=== PATIENT | female | born 1995 | race Hispanic/Latino ===

== ENCOUNTER 2020-01-09 14:42 | Emergency (ER) | payer OTHER, SELFPAY ==
[2020-01-09 15:59] LABS: Absolute Lymphocytes (CBC) 1.8 K/uL (0.7-4.9); Basophils % 0.6 % (0-1.3); Hematocrit 35.7 % (36.0-45.0); Lymphocytes % 15.4 % (15.3-44.8); MPV 7.7 fL (7.6-11.3); RBC Red Blood Cell Count 4.39 M/uL (3.86-4.86)
[2020-01-09 16:09] LABS: BUN Blood Urea Nitrogen 9 mg/dL (7-18); Bicarbonate 24 mmol/L (21-32); Glucose Level 95 mg/dL (74-106); Sodium Level 141 mmol/L (136-145)
[2020-01-09 16:26] LABS: Urine Blood 1+ (NEG); Urine Glucose NEGATIVE (NEG); Urine Protein NEGATIVE (NEG)
--- NOTE | 2020-01-09 16:31 | RAD REPORT ---
EXAM DESCRIPTION: CT - Head Brain Wo Cont - 01/09/2020 3:55 pm CLINICAL HISTORY: Headache COMPARISON: None. TECHNIQUE: Computed axial tomography of the head was obtained. IV contrast was not requested. All CT scans are performed using dose optimization technique as appropriate and may include automated exposure control or mA/KV adjustment according to patient size. FINDINGS: An intracranial bleed is not seen . The ventricles are normal in caliber. No extra-axial fluid collection is noted. Fluid within the sinuses/ mastoids is not seen. IMPRESSION: No acute intracranial abnormality is seen. If patient's symptoms persist MRI of the bra in would be recommended.
[2020-01-09] MEDS ORDERED: MECLIZINE HCL 12.5 MG TAB ONE (16:55)
--- NOTE | 2020-01-09 17:43 | RAD REPORT ---
EXAM DESCRIPTION: US - Transvaginal OB - 01/09/2020 5:17 pm CLINICAL HISTORY: COMPARISON: None FINDINGS: The uterus 10 x 5 x 5 centimeters. A 6 x 7 x 3 millimeter oval fluid collection is pres ent within the endometrium probably a gestational sac. A pole is not seen. Yolk sac is not visu alized 4.6 centimeter left ovarian cyst. Blood flow is present within the left ovary. The right ovary was no t seen secondary to overlying bowel gas. The right and left adnexa are unremarkable Small amount of free fluid IMPRESSION: Small fluid collection within the endometrium. These findings could represent an early intrauterine in which the pole is not yet see n. An incomplete and even an ectopic associated with a pseudo gestational sac can also result in this appearance. This all should be correlated clinically and with serial beta HCG levels. Followup endovaginal sonogr am in 1 week recommended 4.6 centimeter left ovarian cyst
--- NOTE | 2020-01-09 17:58 | ER ---
Nurse's Notes [facility] Name: Brit Singh Age: 24 yrs Sex: Female : 1995 Arrival Date: 01/09/2020 Time: 14:44 Bed 16 Private MD: Diagnosis: Dizziness and giddiness; related conditions, unspecified, first trimester Presentation: 01/08 15:04 Chief complaint: Patient states: "I have been feeling dizzy since this morning.". jd3 Coronavirus screen: At this time, the client does not indicate any symptoms associated with coronavirus-19. Ebola Screen: Patient negative for fever greater than or equal to 101.5 degrees Fahrenheit, and additional compatible Ebola Virus Disease symptoms. Initial Sepsis Screen: Does the patient meet any 2 criteria? No. Patient's initial sepsis screen is negative. Does the patient have a suspected source of infection? No. Patient's initial sepsis screen is negative. Risk Assessment: Do you want to hurt yourself or someone else? Patient reports no desire to harm self or others. Onset of symptoms was January 09, 2020. 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 - Social history:: Smoking status: Patient reports the use of cigarette tobacco products, denies chronic smoking, but will smoke occasionally. Screenin:25 Abuse screen: Denies threats or abuse. Denies injuries from another. Nutritional ca1 screening: No deficits noted. Tuberculosis screening: No symptoms or risk factors identified. Fall Risk IV access (20 points). Assessment: 15:25 General: Appears in no apparent distress. comfortable, Behavior is calm, cooperative, ca1 appropriate for age. Pain: Denies pain. Neuro: Level of Consciousness is awake, alert, obeys commands, Oriented to person, place, time, situation, Appropriate for age. Neuro: Reports dizziness, since this morning. Cardiovascular: Heart tones S1 S2 present Capillary refill < 3 seconds Patient's skin is warm and dry. Rhythm is sinus rhythm. Respiratory: Airway is patent Respiratory effort is even, unlabored, Respiratory pattern is regular, symmetrical, Breath sounds are clear bilaterally. GI: Abdomen is round non-distended, Bowel sounds present X 4 quads. Abd is soft and non tender X 4 quads. Patient currently denies nausea. : No signs and/or symptoms were reported regarding the genitourinary system. EENT: No signs and/or symptoms were reported regarding the EENT system. Derm: Skin is intact, is healthy with good turgor, Skin is pink, warm \\T\\ dry. Musculoskeletal: Circulation, motion, and sensation intact. Capillary refill < 3 seconds. 16:30 Reassessment: Patient appears in no apparent distress at this time. Patient and/or ca1 family updated on plan of care and expected duration. Pain level reassessed. Patient is alert, oriented x 3, equal unlabored respirations, skin warm/dry/pink. 17:30 Reassessment: Patient appears in no apparent distress at this time. Patient and/or ca1 family updated on plan of care and expected duration. Pain level reassessed. Patient is alert, oriented x 3, equal unlabored respirations, skin warm/dry/pink. 18:20 Reassessment: Patient appears in no apparent distress at this time. Patient is alert, ca1 oriented x 3, equal unlabored respirations, skin warm/dry/pink. Vital Signs: 15:06 BP 132 / 67; Pulse 103; Resp 16 S; Temp 99.0(TE); Pulse Ox 99% on R/A; Weight 106.14 kg jd3 (R); Height 5 ft. 6 in. (167.64 cm) (R); Pain 0/10; 16:00 BP 150 / 71; Pulse 102; Resp 18 S; Pulse Ox 100% on R/A; ca1 17:00 BP 121 / 64; Pulse 92; Resp 16 S; Pulse Ox 100% on R/A; ca1 17:47 BP 126 / 76; Pulse 88; Resp 17 S; Pulse Ox 100% on R/A; ca1 17:50 BP 138 / 90; Pulse 88; Resp 17 S; Pulse Ox 100% on R/A; ca1 17:53 BP 134 / 74; Pulse 89; Resp 17 S; Pulse Ox 100% on R/A; ca1 15:06 Body Mass Index 37.77 (106.14 kg, 167.64 cm) jd3 ED Course: 14:44 Patient arrived in ED. as 15:04 Triage completed. jd3 15:08 Arm band placed on. jd3 15:19 Jaswinder Hernandez PA is PHCP. cp 15:19 Les Rosales MD is Attending Physician. cp 15:25 Patient has correct armband on for positive identification. Placed in gown. Bed in low ca1 position. Call light in reach. Side rails up X 1. Pulse ox on. NIBP on. Warm blanket given. 15:35 Mireille Davison, RN is Primary Nurse. ca1 15:40 Initial lab(s) drawn, by me, sent to lab. EKG done, by ED staff. Inserted saline lock: ca1 20 gauge in left antecubital area, using aseptic technique. Blood collected. 15:40 No provider procedures requiring assistance completed. Urine collected: clean catch ca1 specimen, cloudy. 15:55 CT Head Brain wo Cont In Process Unspecified. EDMS 17:16 US Transvaginal Ob In Process Unspecified. EDMS 18:20 IV discontinued, intact, bleeding controlled, No redness/swelling at site. Pressure ca1 dressing applied. Administered Medications: 16:43 Drug: Meclizine 25 mg Route: PO; ca1 17:41 Follow up: Response: No adverse reaction; Marked relief of symptoms ca1 Outcome: 17:57 Discharge ordered by MD. cp 18:20 Discharged to home ca1 18:20 Condition: stable 18:20 Discharge instructions given to patient, Instructed on discharge instructions, follow up and referral plans. medication usage, Demonstrated understanding of instructions, follow-up care, medications, Prescriptions given X 2. 18:21 Patient left the ED. ca1 Signatures: Dispatcher [employer] EDMS Angelita Martinez as Jaswinder Hernandez PA PA cp Davies, Jonathon, RN RN jd3 Mireille Davison RN RN ca1 Corrections: (The following items were deleted from the chart) 15:08 15:06 Pulse 103bpm; Resp 16bpm; Spontaneous; Pulse Ox 99% RA; Temp 99.0F Temporal; jd3 106.14 kg Reported; Height 5 ft. 6 in. Reported; BMI: 37.7; Pain 0/10; jd3
--- NOTE | 2020-01-09 17:58 | EDPHYS ---
Physician Documentation [facility] Name: Brit Singh Age: 24 yrs Sex: Female : 1995 Arrival Date: 01/09/2020 Time: 14:44 Bed 16 Private MD: ED Physician Lse Rosales HPI: 01/08 15:35 This 24 yrs old Female presents to ER via Ambulatory with complaints of cp Dizziness. 15:35 The patient presents with dizziness, feeling faint, lightheadedness. Onset: The cp symptoms/episode began/occurred this morning, after waking up about 1000. 15:35 Associated signs and symptoms: Pertinent positives: headache, Pertinent negatives: cp abdominal pain, chest pain, focal weakness, syncope, vomiting. Severity of symptoms: in the emergency department the symptoms have improved mildly. Patient's baseline: Neuro: alert and fully oriented, Motor: no deficits, Ambulation: walks without assistance, Speech: normal. 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 - Social history:: Smoking status: Patient reports the use of cigarette tobacco products, denies chronic smoking, but will smoke occasionally. ROS: 15:40 Constitutional: Negative for body aches, chills, fever, poor PO intake. cp 15:40 Eyes: Negative for injury, pain, redness, and discharge. cp 15:40 ENT: Negative for ear pain, sore throat, difficulty swallowing, difficulty handling secretions. 15:40 Cardiovascular: Negative for chest pain, palpitations. 15:40 Respiratory: Negative for cough, shortness of breath, wheezing. 15:40 Abdomen/GI: Negative for abdominal pain, nausea, vomiting, and diarrhea, black/tarry stool, rectal bleeding. 15:40 : Negative for urinary symptoms, vaginal bleeding, vaginal discharge. 15:40 Neuro: Positive for dizziness, headache, Negative for altered mental status, syncope, weakness. 15:40 All other systems are negative. Exam: 15:45 Constitutional: The patient appears in no acute distress, alert, awake, non-toxic, well cp developed, well nourished. 15:45 Head/Face: Normocephalic, atraumatic. cp 15:45 Eyes: Periorbital structures: appear normal, Conjunctiva: normal, no exudate, no injection, Sclera: no appreciated abnormality, Lids and lashes: appear normal, bilaterally. 15:45 ENT: External ear(s): are unremarkable, Ear canal(s): are normal, clear, TM's: dullness, bilaterally, Nose: is normal, Mouth: Lips: moist, Oral mucosa: moist, Posterior pharynx: Airway: no evidence of obstruction, patent. 15:45 Neck: ROM/movement: is normal, is supple, without pain, no range of motions limitations. 15:45 Chest/axilla: Inspection: normal, Palpation: is normal, no crepitus, no tenderness. 15:45 Cardiovascular: Rate: tachycardic, Rhythm: regular, Heart sounds: murmur, not appreciated, JVD: is not appreciated. 15:45 Respiratory: the patient does not display signs of respiratory distress, Respirations: normal, no use of accessory muscles, no retractions, labored breathing, is not present, Breath sounds: are clear throughout, no decreased breath sounds, no stridor, no wheezing. 15:45 Abdomen/GI: Inspection: abdomen appears normal, Palpation: abdomen is soft and non-tender, in all quadrants. 15:45 Neuro: Orientation: to person, place \T\ time. Mentation: is normal, Cerebellar function: is grossly normal, Motor: moves all fours, strength is normal, Sensation: is normal. 16:15 ECG was reviewed by the Attending Physician. cp Vital Signs: 15:06 BP 132 / 67; Pulse 103; Resp 16 S; Temp 99.0(TE); Pulse Ox 99% on R/A; Weight 106.14 kg jd3 (R); Height 5 ft. 6 in. (167.64 cm) (R); Pain 0/10; 16:00 BP 150 / 71; Pulse 102; Resp 18 S; Pulse Ox 100% on R/A; ca1 17:00 BP 121 / 64; Pulse 92; Resp 16 S; Pulse Ox 100% on R/A; ca1 17:47 BP 126 / 76; Pulse 88; Resp 17 S; Pulse Ox 100% on R/A; ca1 17:50 BP 138 / 90; Pulse 88; Resp 17 S; Pulse Ox 100% on R/A; ca1 17:53 BP 134 / 74; Pulse 89; Resp 17 S; Pulse Ox 100% on R/A; ca1 15:06 Body Mass Index 37.77 (106.14 kg, 167.64 cm) jd3 MDM: 15:26 Patient medically screened. 17:56 Data reviewed: vital signs, nurses notes, lab test result(s), EKG, radiologic studies, cp CT scan. 17:56 Counseling: I had a detailed discussion with the patient and/or guardian regarding: the cp historical points, exam findings, and any diagnostic results supporting the discharge/admit diagnosis, lab results, radiology results, the need for outpatient follow up, an OB/Gyne specialist, to return to the emergency department if symptoms worsen or persist or if there are any questions or concerns that arise at home. Response to treatment: the patient's symptoms have markedly improved after treatment, patient is well hydrated. and as a result, I will discharge patient. 01/08 15:33 Order name: CBC with Diff; Complete Time: 16:20 01/08 16:20 Interpretation: Normal except: WBC 11.7; HCT 35.7; PLT 460; CHAO% 79.4; NEUT A 9.3. 01/08 15:33 Order name: BMP; Complete Time: 16:20 01/08 16:20 Order name: Urine Dipstick--Ancillary (enter results); Complete Time: 17:15 ar 01/08 16:20 Order name: Urine --Ancillary (enter results); Complete Time: 17:15 ar 01/08 16:25 Order name: Beta hcg; Complete Time: 17:15 01/08 16:25 Order name: Rh Type 01/08 15:31 Order name: Orthostatics; Complete Time: 17:52 01/08 15:33 Order name: EKG; Complete Time: 15:34 01/08 15:33 Order name: EKG - Nurse/Tech; Complete Time: 16:17 01/08 15:33 Order name: Urine Dipstick-Ancillary (obtain specimen); Complete Time: 16:17 01/08 15:34 Order name: CT Head Brain wo Cont; Complete Time: 17:15 01/08 16:25 Order name: US Transvaginal Ob; Complete Time: 18:13 cp 01/08 17:42 Order name: ABO/RH typing; Complete Time: 18:13 EDAZ 01/08 15:33 Order name: Urine Dipstick-Ancillary (obtain specimen); Complete Time: 16:17 cp EC:15 Rate is 91 beats/min. Rhythm is regular. UT interval is normal. QRS interval is normal. cp QT interval is normal. T waves are Inverted in lead aVR. Interpreted by me. Reviewed by me. Administered Medications: 16:43 Drug: Meclizine 25 mg Route: PO; ca1 17:41 Follow up: Response: No adverse reaction; Marked relief of symptoms ca1 Disposition: 01/09 14:27 Co-signature as Attending Physician, Les Rosaels MD. rn Disposition: 01/09/20 17:57 Discharged to Home. Impression: Dizziness and giddiness, related conditions, unspecified, first trimester. - Condition is Stable. - Discharge Instructions: Dizziness, First Trimester of . - Prescriptions for Meclizine 25 mg Oral Tablet - take 1 tablet by ORAL route every 8 hours As needed; 30 tablet. Vitamin 27- 0.8 mg Oral Tablet - take 1 tablet by ORAL route once daily; 60 tablet. - Medication Reconciliation Form, Thank You Letter, Antibiotic Education, Prescription Opioid Use, Work release form form. - Follow up: Private Physician; When: 1 week; Reason: Recheck today's complaints. - Problem is new. - Symptoms have improved. Signatures: Dispatcher [employer] [facility] Les Rosales MD MD rn Page, Corey, PA PA cp Andry Cabrera RN RN jd3 Mireille Davison RN RN ca1 Corrections: (The following items were deleted from the chart) 01/08 18:21 17:57 01/09/2020 17:57 Discharged to Home. Impression: Dizziness and giddiness; ca1 related conditions, unspecified, first trimester. Condition is Stable. Forms are Medication Reconciliation Form, Thank You Letter, Antibiotic Education, Prescription Opioid Use. Follow up: Private Physician; When: 1 week; Reason: Recheck today's complaints. Problem is new. Symptoms have improved. cp
[2020-01-09 21:02] VITALS: TEMP 99
[2020-01-09 21:03] VITALS: O2SAT 100
[2020-01-09 21:12] VITALS: BP 134/74
--- NOTE | 2020-01-10 07:41 | EKG ---
Test Date: 2020-01-09 Test Time: 16:09:48 Manager [employer]olog[employer]: HUSSEIN MEASUREMENT RESULTS: Intervals: Rate: 91 OH: 114 QRSD: 84 QT: 352 QTc: 432 [place]: P: 17 OH: 114 QRS: 64 T: 35 INTERPRETIVE STATEMENTS: Normal sinus rhythm Normal ECG No previous ECG available for comparison Electronically Signed On 01-10-20 07:40:33 PARTS ROOM ASSOCIATE by Edward Mccord
== END 2020-01-09 18:21 | disposition home or self-care (01) ==
LOC: ER 14:42
DX: O26.891 Other specified pregnancy related conditions, first trimester (principal); Z3A.00 Weeks of gestation of pregnancy not specified
CPT/HCPCS: 36415; 70450; 76817; 80048; 81003; 81025; 84702; 85025; 86900; 86901; 93005; 99285

== ENCOUNTER 2020-04-23 19:00 | Emergency (ER) | payer OTHER, MEDICAID ==
--- OUTSIDE RECORDS SUMMARY | 2020-04-23 19:03 | XMS REPORT | Continuity of Care Document ---
:1995 Author Organization [facility] t Address [address] [place] [address] Care Team Providers Name Role Phone Mary Posey Main Attending Clinician Unavailable Jerardo CURIEL Attending Clinician Problems This patient has no known problems. Allergies, Adverse Reactions, Alerts This patient has no known allergies or adverse reactions. Medications This patient has no known medications. Procedures This patient has no known procedures. Encounters Start End Encounter Admission Attending Care Care Encounter Source Date/Time Date/Time Type Type Clinicians Facility Department ID 2020-04-07 2020-04-07 Electrical Apprentice Jett Posey [facility] [id number] 09:56:41 10:11:41 Visit Lab Main [place] [id number] [place] [id number] Profess[facility] [phone] [facility] [address] Building 2020-03-15 2020-03-15 Electrical Apprentice Jett Posey [facility] [id number] 13:44:30 13:59:30 Visit Lab Main [place] [id number] [place] [id number] Professio [phone] [place] [address] Building 2020-01-20 2020-01-20 Tele[address] Nahed Kurtz [facility] [id number] 00:00:00 00:00:00 [place] [id number] [place] [id number] [facility] [phone] [address] Results This patient has no known results.
[2020-04-23] MEDS ORDERED: ACETAMINOPHEN 500 MG TAB ONE ×2 (19:43→19:49)
[2020-04-23] MEDS ORDERED: NA CHLORIDE 0.9% 500 ML ONE (20:25)
[2020-04-23 20:45] LABS: Absolute Lymphocytes (CBC) 0.8 K/uL (0.7-4.9); Basophils % 0.2 % (0-1.3); Hematocrit 31.8 % (36.0-45.0); Lymphocytes % 7.5 % (15.3-44.8); MPV 6.7 fL (7.6-11.3)
[2020-04-23 20:45] LABS: SARS-COV-2 RT PCR POSITIVE (NEGATIVE)
[2020-04-23 20:50] LABS: Protime INR 1.06
[2020-04-23 21:04] LABS: ALT/SGPT 61 U/L (12-78); AST/SGOT 50 U/L (15-37); Albumin 2.7 g/dL (3.4-5.0); Alkaline Phosphatase 94 U/L (45-117); BUN Blood Urea Nitrogen 6 mg/dL (7-18); Bicarbonate 21 mmol/L (21-32); Bilirubin Direct 0.3 mg/dL (0-0.2); Bilirubin Total 0.6 mg/dL (0.2-1.0); Glucose Level 101 mg/dL (74-106); Lipase 73 U/L (73-393); Potassium 3.3 mmol/L (3.5-5.1); Protein, Total 7.2 g/dL (6.4-8.2); Sodium Level 135 mmol/L (136-145); Troponin (Emerg Dept Use Only) < 0.02 ng/mL (0.0-0.045)
--- NOTE | 2020-04-23 21:04 | RAD REPORT ---
EXAM DESCRIPTION: RAD - Chest Single View - 04/23/2020 8:58 pm CLINICAL HISTORY: fever;Cough Chest pain. COMPARISON: No comparisons FINDINGS: Portable technique limits examination quality. Mild to moderate bilateral pulmonary opacities are present which may represent pulmonary edema or pul monary infection. The heart is upper limit normal in size.
[2020-04-23 21:19] LABS: Anisocytosis 1+; Blood Morphology Comment NOTED (NOT SEEN); Hypochromasia 1+; Platelet Estimate ADEQ; White Blood Cell Scan OK (OK)
[2020-04-23 22:09] LABS: Urine Blood NEGATIVE (NEG); Urine Glucose NEGATIVE (NEG); Urine Protein TRACE (NEG); Urine Specific Gravity 1.015 (1.005-1.030); Urine pH 6.5 (5.0-7.0)
[2020-04-23 22:38] LABS: Urine Bacteria >50 /HPF (<20); Urine RBC <5 /HPF (NONE SEEN)
--- NOTE | 2020-04-23 22:49 | ER ---
Nurse's Notes [facility] Name: Brit Singh Age: 25 yrs Sex: Female : 1995 Arrival Date: 04/23/2020 Time: 19:04 Bed 18 Private MD: Diagnosis: Pneumonia due to other specified infectious organisms;Coronavirus infection, unspecified Presentation: 04/23 19:20 Chief complaint: Patient states: Reports cough, shortness of breath, nausea, lp1 generalized body pain x 3 days; patient reports she is currently 5 months . Coronavirus screen: Client denies travel out of the [place] in the last 14 days. congestion, cough unrelated to allergies, fatigue, muscle pain, nausea, Client presents with at least one sign or symptom that may indicate coronavirus-19. Standard/surgical mask placed on the client. Ebola Screen: No symptoms or risks identified at this time. Initial Sepsis Screen: Does the patient meet any 2 criteria? RR > 20 per min. HR > 90 bpm. Yes. Initial Sepsis Screen: Does the patient have a suspected source of infection? Yes:. Risk Assessment: Do you want to hurt yourself or someone else? Patient reports no desire to harm self or others. Onset of symptoms was April 23, 2020. 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 - Social history:: Smoking status: Patient denies any tobacco usage or history of. Screenin:23 Abuse screen: Denies threats or abuse. Denies injuries from another. Nutritional lp1 screening: No deficits noted. Tuberculosis screening: No symptoms or risk factors identified. 20:00 Fall Risk None identified. jb4 Assessment: 20:00 General: Appears in no apparent distress. comfortable, Behavior is calm, cooperative, jb4 appropriate for age. Pain: Complains of pain in throat Pain does not radiate. Pain currently is 4 out of 10 on a pain scale. Neuro: Level of Consciousness is awake, alert, obeys commands, Oriented to person, place, time, situation. Cardiovascular: Patient's skin is warm and dry. Respiratory: Airway is patent Respiratory effort is even, unlabored, Respiratory pattern is regular, symmetrical. GI: No signs and/or symptoms were reported involving the gastrointestinal system. : No signs and/or symptoms were reported regarding the genitourinary system. EENT: Throat is clear is pink with gag reflex present. Derm: No signs and/or symptoms reported regarding the dermatologic system. Musculoskeletal: No signs and/or symptoms reported regarding the musculoskeletal system. 21:00 Reassessment: Patient appears in no apparent distress at this time. Patient and/or jb4 family updated on plan of care and expected duration. Pain level reassessed. Patient is alert, oriented x 3, equal unlabored respirations, skin warm/dry/pink. 22:00 Reassessment: Patient appears in no apparent distress at this time. Patient and/or jb4 family updated on plan of care and expected duration. Pain level reassessed. Patient is alert, oriented x 3, equal unlabored respirations, skin warm/dry/pink. 22:39 Reassessment: PT ambulated around the Unit. pt able to do one lap, O2 maintained 95-97% jb4 on RA, heart rate maintained at 120. Pt reports an increase in shortness of breath. provider notified. Vital Signs: 19:20 BP 133 / 77; Pulse 143; Resp 20; Temp 102.9(O); Pulse Ox 98% on R/A; Weight 105.23 kg lp1 (M); 21:00 BP 122 / 63; Pulse 111; Resp 18; Temp 98.4(O); Pulse Ox 98% on R/A; jb4 22:27 BP 112 / 76; Pulse 100; Resp 22; Pulse Ox 99% on R/A; jb4 Vitals: 21:28 Heart Tones 175. jb4 ED Course: 19:04 Patient arrived in ED. mr 19:22 Triage completed. lp1 19:22 Arm band placed on. lp1 19:36 COVID swab sent to lab. Flu and/or RSV swab sent to lab. Strep swab sent to lab. lp1 19:49 Jaswinder Hernandez PA is PHCP. cp 19:49 Ugo Dickerson MD is Attending Physician. cp 19:54 Zelalem Tinsley, SANKET is Primary Nurse. jb4 20:00 Placed in gown. Bed in low position. Call light in reach. Side rails up X 1. Verbal jp3 reassurance given. playground monitor on. Pulse ox on. NIBP on. 20:20 First set of blood cultures drawn by me. jp3 20:30 Initial lab(s) drawn, by me, sent to lab. Inserted saline lock: 22 gauge in left jp3 antecubital area, using aseptic technique. Blood collected. 20:30 Second set of blood cultures drawn by me. Patient maintains SpO2 saturation greater jp3 than 95% on room air. 20:58 XRAY Chest (1 view) In Process Unspecified. EDMS 22:08 CT Chest For PE Angio In Process Unspecified. EDMS 23:16 No provider procedures requiring assistance completed. IV discontinued, intact, jb4 bleeding controlled, No redness/swelling at site. Pressure dressing applied. Administered Medications: 19:36 Drug: Tylenol 1000 mg Route: PO; lp1 21:00 Follow up: Response: No adverse reaction; Marked relief of symptoms; Temperature is jb4 decreased 20:30 Drug: NS 0.9% 500 ml Route: IV; Rate: 1 bolus; Site: left antecubital; jb4 21:00 Follow up: Response: No adverse reaction; IV Status: Completed infusion; IV Intake: jb4 500ml 23:00 Drug: Potassium Effervescent Tablet 50 mEq Route: PO; jb4 23:16 Follow up: Response: No adverse reaction jb4 23:00 Drug: Albuterol HFA Inhaler 2 puffs Route: Inhalation; jb4 23:16 Follow up: Response: No adverse reaction jb4 Intake: 21:00 IV: 500ml; Total: 500ml. jb4 Outcome: 22:49 Discharge ordered by . cp 23:16 Discharged to home ambulatory. jb4 23:16 Condition: stable 23:16 Discharge instructions given to patient, Instructed on discharge instructions, follow up and referral plans. medication usage, Demonstrated understanding of instructions, follow-up care, medications, Prescriptions given X 2. 23:17 Patient left the ED. jb4 Signatures: [facility]patcher [facility] Belkis Shi Laura, RN RN lp1 Jaswinder Hernandez PA PA cp Bryson, James, RN RN jb4 Frederick Erazo jp3 Corrections: (The following items were deleted from the chart) 21:06 21:00 BP 107 / 47; Pulse 111bpm; Resp 18bpm; Pulse Ox 98% RA; Temp 98.4F Oral; jb4 jb4
--- NOTE | 2020-04-23 22:50 | EDPHYS ---
Physician Documentation [facility] Name: Brit Singh Age: 25 yrs Sex: Female : 1995 Arrival Date: 04/23/2020 Time: 19:04 Bed 18 Private MD: ED Physician Ugo Dickerson HPI: 04/23 20:05 This 25 yrs old Female presents to ER via Wheelchair with complaints of Sore cp Throat, Cough, Congestion. 20:05 The patient presents with sore throat. Onset: The symptoms/episode began/occurred 3 cp day(s) ago. Severity of symptoms: in the emergency department the symptoms are unchanged, despite home interventions. Associated signs and symptoms: Pertinent positives: cough, fever, shortness of breath Pertinent negatives diarrhea, headache, vomiting. Patient reports she is currently 5 months and had close contact with relative who recently tested positive for COVID-19. 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 - Social history:: Smoking status: Patient denies any tobacco usage or history of. ROS: 20:10 Constitutional: Positive for fever, Negative for body aches, chills, poor PO intake. cp 20:10 Eyes: Negative for injury, pain, redness, and discharge. cp 20:10 ENT: Positive for sore throat, Negative for drainage from ear(s), ear pain, difficulty swallowing, difficulty handling secretions. 20:10 Cardiovascular: Negative for chest pain, edema, palpitations. 20:10 Respiratory: Positive for cough, shortness of breath, Negative for wheezing. 20:10 Abdomen/GI: Negative for abdominal pain, nausea, vomiting, and diarrhea. 20:10 : Negative for urinary symptoms, vaginal bleeding, vaginal discharge. 20:10 Neuro: Negative for altered mental status, headache, weakness. 20:10 All other systems are negative. Exam: 20:15 Constitutional: The patient appears in no acute distress, alert, awake, cp non-diaphoretic, non-toxic, well developed, well nourished, obese. 20:15 Head/Face: Normocephalic, atraumatic. cp 20:15 Eyes: Periorbital structures: appear normal, Conjunctiva: normal, no exudate, no injection, Sclera: no appreciated abnormality, Lids and lashes: appear normal, bilaterally. 20:15 ENT: External ear(s): are unremarkable, Ear canal(s): are normal, clear, TM's: dullness, bilaterally, Nose: is normal, Mouth: Lips: moist, Oral mucosa: moist, Posterior pharynx: Airway: no evidence of obstruction, patent, Tonsils: bilaterally enlarged, with erythema, Uvula: midline, exudate, is not appreciated. 20:15 Neck: ROM/movement: is normal, is supple, without pain, no range of motions limitations, no meningismus. 20:15 Chest/axilla: Inspection: normal, Palpation: is normal, no crepitus, no tenderness. 20:15 Cardiovascular: Rate: tachycardic, Rhythm: regular, Edema: is not appreciated, JVD: is not appreciated. 20:15 Respiratory: the patient does not display signs of respiratory distress, Respirations: labored breathing, that is mild, intercostal retractions, are absent, shallow respirations, are not present, Breath sounds: bronchial sounds, that are mild, are heard diffusely, stridor, is not appreciated, wheezing: is not appreciated. 20:15 Abdomen/GI: Inspection: gravid appearance, is noted, Bowel sounds: active, all quadrants, Palpation: abdomen is soft and non-tender, in all quadrants. 20:15 Back: CVA tenderness, is absent. 20:15 Skin: no rash present. 20:15 Neuro: Orientation: to person, place \T\ time. Mentation: is normal, Cerebellar function: is grossly normal, Motor: moves all fours, strength is normal, Sensation: is normal. 21:22 ECG was reviewed by the Attending Physician. cp Vital Signs: 19:20 BP 133 / 77; Pulse 143; Resp 20; Temp 102.9(O); Pulse Ox 98% on R/A; Weight 105.23 kg lp1 (M); 21:00 BP 122 / 63; Pulse 111; Resp 18; Temp 98.4(O); Pulse Ox 98% on R/A; jb4 22:27 BP 112 / 76; Pulse 100; Resp 22; Pulse Ox 99% on R/A; jb4 MDM: 20:02 Patient medically screened. cp 20:30 Differential diagnosis: group A strep tonsillitis, mononucleosis, pharyngitis, cp retropharyngeal abcess tonsillitis, uvulitis, COVID-19, sepsis, UTI, influenza, Respiratory Failure. 22:45 Data reviewed: vital signs, nurses notes, lab test result(s), EKG, radiologic studies, cp plain films. 22:45 Test interpretation: by ED physician or midlevel provider: plain radiologic studies. cp Counseling: I had a detailed discussion with the patient and/or guardian regarding: the historical points, exam findings, and any diagnostic results supporting the discharge/admit diagnosis, lab results, radiology results, the need for outpatient follow up, an OB/Gyne specialist, to return to the emergency department if symptoms worsen or persist or if there are any questions or concerns that arise at home. Response to treatment: the patient's symptoms have markedly improved after treatment. ED course: VSS. Symptoms improved with meds. Patient ambulated in ED and oxygen sats remain above 94% on RA. Patient appears non-toxic and no signs of respiratory distress. Will discharge to home for continued monitoring. 04/23 19:36 Order name: Strep; Complete Time: 20:59 lp1 04/23 20:04 Order name: Urine Culture cp 04/23 20:04 Order name: Basic Metabolic Panel; Complete Time: 21:07 cp 04/23 21:07 Interpretation: Normal except: NA 135; K 3.3; BUN 6; CRE 0.40. cp 04/23 20:04 Order name: Blood Culture Adult (2) cp 04/23 20:04 Order name: CBC with Diff; Complete Time: 21:37 cp 04/23 21:13 Interpretation: Normal except: HGB 11.0; HCT 31.8; MCV 77.7; MCH 26.8; RDW 16.0; MPV cp 6.7; CHAO% 89.3; LYM% 7.5; MN% 3.0; NEUT A 9.7. 04/23 20:04 Order name: Lactate; Complete Time: 21:12 cp 04/23 21:12 Interpretation: Reviewed. 04/23 20:04 Order name: LFT's; Complete Time: 21:07 04/23 21:14 Interpretation: Normal except: AST 50; BILID 0.3; ALB 2.7; GLOB 4.5; A/G 0.6. 04/23 20:04 Order name: Lipase; Complete Time: 21:07 04/23 20:04 Order name: Procalcitonin; Complete Time: 21:37 04/23 21:37 Interpretation: Abnormal: Procalcitonin 0.06. 04/23 20:04 Order name: Protime (+inr); Complete Time: 20:59 04/23 20:04 Order name: Troponin (emerg Dept Use Only); Complete Time: 21:07 04/23 20:04 Order name: Urine Microscopic Only; Complete Time: 22:47 04/23 19:36 Order name: Urine Dipstick-Ancillary (obtain specimen); Complete Time: 22:17 lp1 04/23 20:04 Order name: XRAY Chest (1 view); Complete Time: 21:07 04/23 20:23 Order name: Throat Culture EDWV 04/23 20:34 Order name: [place] Screen Profile 04/23 20:34 Order name: LAB Add On 04/23 20:34 Order name: [place] Screen; Complete Time: 21:07 EDWV 04/23 20:43 Order name: Glucose, Ancillary Testing; Complete Time: 20:59 EDWV 04/23 20:46 Order name: COVID-19/FLU A+B; Complete Time: 20:59 EDWV 04/23 20:54 Order name: CBC Smear Scan; Complete Time: 21:37 EDWV 04/23 21:21 Order name: CT Chest For PE Angio 04/23 21:55 Order name: Urine Dipstick--Ancillary (enter results); Complete Time: 22:47 nm 04/23 21:55 Order name: Urine --Ancillary (enter results); Complete Time: 22:47 mt 04/23 20:04 Order name: Accucheck; Complete Time: 20:37 04/23 20:04 Order name: Cardiac monitoring; Complete Time: 20:37 04/23 20:04 Order name: EKG - Nurse/Tech; Complete Time: 21:40 cp 04/23 20:04 Order name: IV Saline Lock - Large Bore; Complete Time: 20:37 cp 04/23 20:04 Order name: Labs collected and sent; Complete Time: 20:37 cp 04/23 20:04 Order name: O2 Per Protocol; Complete Time: 20:37 cp 04/23 20:04 Order name: O2 Sat Monitoring; Complete Time: 20:37 cp 04/23 20:04 Order name: Heart Tones; Complete Time: 21:40 cp EC:22 Rate is 109 beats/min. Rhythm is regular. TN interval is normal. QRS interval is cp normal. QT interval is normal. T waves are Inverted in lead aVR. Interpreted by me. Reviewed by me. Administered Medications: 19:36 Drug: Tylenol 1000 mg Route: PO; lp1 21:00 Follow up: Response: No adverse reaction; Marked relief of symptoms; Temperature is jb4 decreased 20:30 Drug: NS 0.9% 500 ml Route: IV; Rate: 1 bolus; Site: left antecubital; jb4 21:00 Follow up: Response: No adverse reaction; IV Status: Completed infusion; IV Intake: jb4 500ml 23:00 Drug: Potassium Effervescent Tablet 50 mEq Route: PO; jb4 23:16 Follow up: Response: No adverse reaction jb4 23:00 Drug: Albuterol HFA Inhaler 2 puffs Route: Inhalation; jb4 23:16 Follow up: Response: No adverse reaction jb4 Disposition: 04/24 05:04 Co-signature as Attending Physician, Ugo Dickerson MD. [email or web address] Disposition: 04/23/20 22:49 Discharged to Home. Impression: Pneumonia due to other specified infectious organisms, Coronavirus infection, unspecified. - Condition is Stable. - Discharge Instructions: COVID-19. - Prescriptions for Zithromax Z- Davion 250 mg Oral Tablet - take 1 tablet by ORAL route as directed for 5 days Day 1 - take two (2) tablets one time. Day 2, 3, 4 , 5 take one (1) tablet once daily.; 6 tablet. Albuterol Sulfate 90 mcg/actuation - inhale 1-2 puff by INHALATION route every 4-6 hours; 1 Inhaler. - Medication Reconciliation Form, Thank You Letter, Antibiotic Education, Prescription Opioid Use form. - Follow up: Private Physician; When: 1 - 2 days; Reason: Recheck today's complaints. - Problem is new. - Symptoms have improved. Signatures: Dispatcher [employer] [facility] Nuvia Mehta, RN RN lp1 Jaswinder Hernandez PA PA cp Bryson, James, RN RN jb4 Ugo Dickerson MD MD [email or web address] Corrections: (The following items were deleted from the chart) 04/23 19:56 19:37 CORONAVIRUS+MR.LAB.BRZ ordered. [facility] 19:56 19:37 Influenza Screen (A \T\ B)+BA.LAB.BRZ ordered. [facility] 22:17 19:36 Urine Test ordered. lp1 jb4 23:17 22:49 04/23/2020 22:49 Discharged to Home. Impression: Pneumonia due to other specified jb4 infectious organisms; Coronavirus infection, unspecified. Condition is Stable. Forms are Medication Reconciliation Form, Thank You Letter, Antibiotic Education, Prescription Opioid Use. Follow up: Private Physician; When: 1 - 2 days; Reason: Recheck today's complaints. Problem is new. Symptoms have improved. cp
[2020-04-23] MEDS ORDERED: ALBUTEROL INHALER 60 PUFF/8 GM IH ONE (23:12)
[2020-04-23] MEDS ORDERED: POTASSIUM 25 MEQ EFFERV TAB ONE (23:12)
[2020-04-23 23:29] VITALS: TEMP 98.4
[2020-04-23 23:31] VITALS: BP 112/76; O2SAT 99
--- NOTE | 2020-04-24 13:38 | RAD REPORT ---
EXAM DESCRIPTION: CT - Chest For Pe Angio - 04/24/2020 1:58 am CLINICAL HISTORY: Cough;SOB. COMPARISON: None. TECHNIQUE: CTA of the chest was performed following intravenous administration of iodinated contrast . Axial soft tissue and bone window, and coronal and sagittal soft tissue window reconstructions were created and sent to PACS. 3D postprocessing was performed on an independent workstation, with images sent to PACS for subsequen t review. This exam was performed according to our departmental dose-optimization program, which includes autom ated exposure control, adjustment of the mA and/or kV according to patient size and/or use of iterati ve reconstruction technique. FINDINGS: Suboptimal exam due to patient body habitus. Vascular: The pulmonary arteries are adequately opacified only centrally. No CTA evidence of acute pu lmonary thromboembolism in the main pulmonary trunk, and right and left main pulmonary arteries. No e vidence of aortic aneurysm or dissection. Lungs and pleura: Patchy regions of interstitial thickening and groundglass opacification throughout all lobes. No pleural effusion. No pneumothorax. Mediastinum and neck: Mildly enlarged aortopulmonary window lymph node measures 1 cm short axis.. Unr emarkable appearance of the thyroid gland. Cardiac: No cardiomegaly or pericardial effusion. No thoracic aortic aneurysm or dissection. Abdomen: Hepatic steatosis. Musculoskeletal: No concerning osseous abnormality. IMPRESSION: 1. Suboptimal exam due to patient body habitus. 2. No CTA evidence of central acute pulmonary thromboembolism. 3. Multi lobar groundglass opacities and interstitial thickening. Correlate for infectious/inflamma tory process. 4. Mild mediastinal lymphadenopathy, likely reactive. 5. Hepatic steatosis. Electronically signed by: Becca Harkins MD 04/23/2020 10:13 PM [employer] Due to temporary technical issues with the PACS/Fluency reporting system, reports are being signed by the in house radiologists without review as a courtesy to insure prompt reporting. The interpreting radiologist is fully responsible for the content of the report.
--- NOTE | 2020-04-25 17:13 | EKG ---
Test Date: 2020-04-23 Test Time: 21:15:59 Staff Scientist: DANY MEASUREMENT RESULTS: Intervals: Rate: 109 PA: 116 QRSD: 92 QT: 338 QTc: 455 [place]: P: 81 PA: 116 QRS: 66 T: 3 INTERPRETIVE STATEMENTS: Sinus tachycardia Nonspecific T wave abnormality Abnormal ECG Compared to ECG 01/09/2020 16:09:48 T-wave abnormality now present Sinus rhythm no longer present Electronically Signed On 04-25-20 17:06:45 METAL CRAFTS TEACHER by Edward Mccord
== END 2020-04-23 23:17 | disposition home or self-care (01) ==
LOC: ER 19:00
DX: O98.512 Other viral diseases complicating pregnancy, second trimester (principal); O99.512 Diseases of the respiratory system complicating pregnancy, second trimester; U07.1 COVID-19; J12.82 Pneumonia due to coronavirus disease 2019; Z3A.25 25 weeks gestation of pregnancy
CPT/HCPCS: 0240U; 36415; 71045; 71275; 80048; 80076; 81003; 81015; 81025; 82947; 83605; 83690; 84145; 84484; 85025; 85610; 86308; 87040; 87070; 87081; 87086; 87088; 93005; 99285; J7040; Q9967

== ENCOUNTER 2020-04-25 13:50 | Emergency (ER) | payer MEDICAID, SELFPAY ==
--- OUTSIDE RECORDS SUMMARY | 2020-04-25 13:52 | XMS REPORT | Continuity of Care Document ---
:1995 Author Organization [facility] t Address [address] [place] [id number] Care Team Providers Name Role Phone Mary [...] Type Clinicians Facility Department ID 2020-04-07 2020-04-07 Automotive Specialty Technician Jett Posey [facility] [id number] 09:56:41 10:11:41 Visit Lab Main [place] [id number] [place] [id number] [facility] [phone] [address] 2020-03-15 2020-03-15 Automotive Specialty Technician Jett Posey [facility] [id number] 13:44:30 13:59:30 Visit Lab Main [place] [id number] [place] [id number] [facility] [phone] [address] 2020-01-20 2020-01-20 Telephone Nahed Kurtz [facility] [id number] 00:00:00 00:00:00 [place] [id number] [place] [id number] [facility] [phone] [address] Results This patient has no known results.
[2020-04-25] MEDS ORDERED: dexAMETHasone 10 MG/ML VIAL ONE (14:43)
[2020-04-25] MEDS ORDERED: LEVALBUTEROL 1.25 MG/3 ML NEB ONE (14:44)
[2020-04-25] MEDS ORDERED: NA CHLORIDE 0.9% 1,000 ML ONE (14:44)
--- NOTE | 2020-04-25 15:04 | RAD REPORT ---
EXAM DESCRIPTION: RAD - Chest Single View - 04/25/2020 2:51 pm CLINICAL HISTORY: shortness of breath, covid positive Chest pain. COMPARISON: Chest Single View dated 04/23/2020; Chest For Pe Angio dated 04/23/2020 FINDINGS: Portable technique limits examination quality. Bilateral pulmonary opacities are again seen, appearing slightly improved since 04/23/2020 study. The lungs are underinflated. The heart is upper limit normal in size. No displaced fractures. IMPRESSION: Fractional improvement lung aeration seen since prior study.
[2020-04-25] MEDS ORDERED: ACETAMINOPHEN 325 MG TABLET ONE (15:28)
[2020-04-25] MEDS ORDERED: FAMOTIDINE 20 MG/2 ML VIAL IV ONE (15:28)
[2020-04-25 16:08] LABS: BUN Blood Urea Nitrogen 3 mg/dL (7-18); Bicarbonate 20 mmol/L (21-32); Glucose Level 101 mg/dL (74-106); Potassium 3.3 mmol/L (3.5-5.1); Sodium Level 140 mmol/L (136-145)
--- NOTE | 2020-04-25 17:12 | RAD REPORT ---
EXAM DESCRIPTION: CT - Chest For Pe Angio - 04/25/2020 4:51 pm CLINICAL HISTORY: Chest pain. shortness of breath, covid positive COMPARISON: Chest For Pe Angio dated 04/23/2020 TECHNIQUE: CT angiogram of the pulmonary arteries was performed with MIP. All CT scans are performed using dose optimization technique as appropriate and may include automated exposure control or mA/KV adjustment according to patient size. FINDINGS: No evidence of pulmonary thromboembolism. No acute aortic finding demonstrated. Moderate bilateral pulmonary opacities are present. No significant pericardial or pleural fluid. No concerning bony finding. Advanced fatty liver. IMPRESSION: No evidence of pulmonary thromboembolism. Moderate bilateral pulmonary opacities are noted most compatible with COVID-19 infection.
[2020-04-25] MEDS ORDERED: NA CHLORIDE 0.9% 500 ML ONE (18:28)
--- NOTE | 2020-04-25 18:32 | EDPHYS ---
Physician Documentation [facility] Name: Brit Singh Age: 25 yrs Sex: Female : 1995 Arrival Date: 04/25/2020 Time: 13:56 Bed 18 Private MD: ED Physician Les Rosales HPI: 04/25 14:14 This 25 yrs old Female presents to ER via EMS with complaints of Shortness Of jmm Breath. 14:14 The patient has shortness of breath turning from her right to her left side. The jmm patient's shortness of breath is aggravated by light activity. Associated signs and symptoms:. This is a 25 year old female with no chronic medical conditions that is a currently 20 weeks that presents to the ED with complaints of shortness of breath. Diagnosed with covid 19 approx 1 week ago. SOB is worse while switches sides she is laying.. 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 - Social history:: Smoking status: Patient denies any tobacco usage or history of. ROS: 14:14 Constitutional: Negative for fever, chills, and weight loss, Cardiovascular: Negative jmm for chest pain, palpitations, and edema. 14:14 Respiratory: Positive for shortness of breath. 14:14 All other systems are negative. Exam: 14:14 Constitutional: This is a well developed, well nourished patient who is awake, alert, jmm and in no acute distress. Head/Face: atraumatic. Eyes: EOMI, no conjunctival erythema appreciated ENT: Moist Mucus Membranes Neck: Trachea midline, Supple Chest/axilla: Normal chest wall appearance and motion. Cardiovascular: Regular rate and rhythm. No edema appreciated Respiratory: Normal respirations, no respiratory distress appreciated Back: Normal ROM 14:14 Abdomen/GI: Inspection: gravid appearance. Vital Signs: 13:56 BP 127 / 61; Pulse 119; Resp 18 S; Temp 97.5(O); Pulse Ox 99% on R/A; Weight 105.23 kg ca1 (R); Height 5 ft. 6 in. (167.64 cm) (R); 15:18 BP 146 / 99; Pulse 125; Resp 27 S; Pulse Ox 93% on R/A; jd3 15:30 Pulse Ox 98% on R/A; jd3 16:25 BP 105 / 56; Pulse 115; Resp 25 S; Pulse Ox 94% on R/A; jd3 17:38 BP 103 / 64; Pulse 117; Resp 20 S; Pulse Ox 95% on R/A; jd3 18:21 BP 119 / 61; Pulse 114; Resp 17 S; Pulse Ox 94% on R/A; jd3 18:37 Pulse 112; Resp 20 S; Pulse Ox 95% on R/A; jd3 13:56 Body Mass Index 37.45 (105.23 kg, 167.64 cm) ca1 MDM: 14:03 Patient medically screened. [facility] 14:14 Data reviewed: vital signs, nurses notes. [facility] 18:28 Data reviewed: lab test result(s), radiologic studies, CT scan. ED course: Patient is [facility] alert and non toxic in appearance in the ED. CTA is negative for PE. CXR shows improved aeration. Patient advised to follow up with her METAL FABRICATING INSPECTOR and otherwise given strict return precautions. patient understood and agrees with the plan of care. . 04/25 14:13 Order name: BMP; Complete Time: 16:10 [facility] 04/25 14:10 Order name: Chest Single View XRAY; Complete Time: 15:05 [facility] 04/25 15:35 Order name: CT Chest For PE Angio; Complete Time: 17:22 [facility] 04/25 14:10 Order name: Saline Lock; Complete Time: 14:23 [facility] Administered Medications: 14:37 Drug: NS 0.9% 1000 ml Route: IV; Rate: 1 bolus; Site: left antecubital; jd3 15:30 Follow up: Response: No adverse reaction; IV Status: Completed infusion; IV Intake: jd3 1000ml 14:37 Drug: Xopenex (3) 1.25 mg Route: Inhalation; jd3 15:30 Follow up: Response: No adverse reaction jd3 14:37 Drug: Decadron - Dexamethasone 10 mg Route: IVP; Site: left antecubital; jd3 15:30 Follow up: Response: No adverse reaction jd3 15:23 Drug: Pepcid 20 mg Route: IVP; Site: left antecubital; jd3 16:20 Follow up: Response: No adverse reaction jd3 15:23 Drug: Tylenol 650 mg Route: PO; jd3 16:20 Follow up: Response: No adverse reaction jd3 18:14 Drug: NS 0.9% 500 ml Route: IV; Rate: bolus; Site: left antecubital; jd3 19:00 Follow up: Response: No adverse reaction; IV Status: Completed infusion; IV Intake: jd3 500ml Disposition: 04/26 07:01 Co-signature as Attending Physician, Les Rosales MD. rn Disposition: 04/25/20 18:31 Discharged to Home. Impression: Coronavirus infection, unspecified. - Condition is Stable. - Discharge Instructions: COVID-19. - Prescriptions for aerochamber - take 2 Inhaler by INHALATION route every 4-6 hours; 1 unit. Albuterol Sulfate 90 mcg/actuation - inhale 1-2 puff by INHALATION route every 4-6 hours; 1 Inhaler. - Medication Reconciliation Form, Thank You Letter, Antibiotic Education, Prescription Opioid Use form. - Follow up: Private Physician; When: 2 - 3 days; Reason: Recheck today's complaints, Continuance of care, Re-evaluation by your physician. Signatures: Dispatcher [employer] EDMS Keith Christopher PA PA jmm Nieto, Roman, MD MD rn Davies, Jonathon, Mireille Mattson RN, RN RN ca1 [place], Lacie, RN RN ll2 Corrections: (The following items were deleted from the chart) 04/25 19:08 18:31 04/25/2020 18:31 Discharged to Home. Impression: Coronavirus infection, ll2 unspecified. Condition is Stable. Forms are Medication Reconciliation Form, Thank You Letter, Antibiotic Education, Prescription Opioid Use. Follow up: Private Physician; When: 2 - 3 days; Reason: Recheck today's complaints, Continuance of care, Re-evaluation by your physician. alessandro
--- NOTE | 2020-04-25 18:32 | ER ---
Nurse's Notes [facility] Name: Brit Singh Age: 25 yrs Sex: Female : 1995 Arrival Date: 04/25/2020 Time: 13:56 Bed 18 Private MD: Diagnosis: Coronavirus infection, unspecified Presentation: 04/25 13:56 Chief complaint: EMS states: SOB x 5 days. Covid+ 04/19/2020, S/S started 04/19/2020. SOB ca1 with exertion. 5 months. Coronavirus screen: Client denies travel out of the [place] in the last 14 days. Client reports previous positive COVID test result. Date of collection: April 19, 2020 Staff notified of need for isolation. Ebola Screen: Patient negative for fever greater than or equal to 101.5 degrees Fahrenheit, and additional compatible Ebola Virus Disease symptoms Patient denies exposure to infectious person. Patient denies travel to an Ebola-affected area in the 21 days before illness onset. No symptoms or risks identified at this time. Initial Sepsis Screen: Does the patient meet any 2 criteria? No. Patient's initial sepsis screen is negative. Does the patient have a suspected source of infection? No. Patient's initial sepsis screen is negative. Risk Assessment: Do you want to hurt yourself or someone else? Patient reports no desire to harm self or others. Onset of symptoms was April 25, 2020. 13:56 Method Of Arrival: EMS: [facility] ca1 13:56 Acuity: TONI 3 ca1 Triage Assessment: 15:21 Respiratory: Onset: The symptoms/episode began/occurred gradually, the patient has jd3 moderate shortness of breath. 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 - Social history:: Smoking status: Patient denies any tobacco usage or history of. Screenin:21 Abuse screen: Denies threats or abuse. Nutritional screening: No deficits noted. jd3 Tuberculosis screening: No symptoms or risk factors identified. Fall Risk Ambulatory Aid- None/Bed Rest/Nurse Assist (0 pts). Gait- Normal/Bed Rest/Wheelchair (0 pts) Mental Status- Oriented to own ability (0 pts). Total Denson Fall Scale indicates No Risk (0-24 pts). Assessment: 14:10 General: Appears uncomfortable, Behavior is calm, cooperative, appropriate for age. jd3 Pain: Complains of pain in chest Quality of pain is described as burning, aching. Neuro: Level of Consciousness is awake, alert, obeys commands, Oriented to person, place, time, situation. Cardiovascular: Heart tones present Capillary refill < 3 seconds Patient's skin is warm and dry. Respiratory: Reports shortness of breath at rest cough that is non-productive, persistent pain with cough Airway is patent Respiratory effort is even, labored, Respiratory pattern is symmetrical, tachypnea Breath sounds are clear bilaterally. GI: No signs and/or symptoms were reported involving the gastrointestinal system. : No signs and/or symptoms were reported regarding the genitourinary system. EENT: No signs and/or symptoms were reported regarding the EENT system. Derm: Skin is intact, Skin is dry, Skin is normal, Skin temperature is warm. Musculoskeletal: Circulation, motion, and sensation intact. Range of motion: intact in all extremities. 15:30 Reassessment: Patient appears in no apparent distress at this time. No changes from jd3 previously documented assessment. Patient and/or family updated on plan of care and expected duration. Pain level reassessed. Patient is alert, oriented x 3, equal unlabored respirations, skin warm/dry/pink. 16:30 Reassessment: Patient appears in no apparent distress at this time. No changes from jd3 previously documented assessment. Patient and/or family updated on plan of care and expected duration. Pain level reassessed. Patient is alert, oriented x 3, equal unlabored respirations, skin warm/dry/pink. 17:37 Reassessment: Patient appears in no apparent distress at this time. Patient and/or jd3 family updated on plan of care and expected duration. Pain level reassessed. Patient is alert, oriented x 3, equal unlabored respirations, skin warm/dry/pink. Patient states feeling better. 18:21 Reassessment: Patient appears in no apparent distress at this time. Patient and/or jd3 family updated on plan of care and expected duration. Pain level reassessed. Patient is alert, oriented x 3, equal unlabored respirations, skin warm/dry/pink. Patient states feeling better. Vital Signs: 13:56 BP 127 / 61; Pulse 119; Resp 18 S; Temp 97.5(O); Pulse Ox 99% on R/A; Weight 105.23 kg ca1 (R); Height 5 ft. 6 in. (167.64 cm) (R); 15:18 BP 146 / 99; Pulse 125; Resp 27 S; Pulse Ox 93% on R/A; jd3 15:30 Pulse Ox 98% on R/A; jd3 16:25 BP 105 / 56; Pulse 115; Resp 25 S; Pulse Ox 94% on R/A; jd3 17:38 BP 103 / 64; Pulse 117; Resp 20 S; Pulse Ox 95% on R/A; jd3 18:21 BP 119 / 61; Pulse 114; Resp 17 S; Pulse Ox 94% on R/A; jd3 18:37 Pulse 112; Resp 20 S; Pulse Ox 95% on R/A; jd3 13:56 Body Mass Index 37.45 (105.23 kg, 167.64 cm) ca1 ED Course: 13:56 Patient arrived in ED. ca1 13:58 Triage completed. ca1 13:59 Keith Christopher PA is PHCP. jmm 13:59 Les Rosales MD is Attending Physician. jmm 13:59 Arm band placed on right wrist. ca1 14:11 Andry Cabrera, RN is Primary Nurse. jd3 14:23 Inserted saline lock: 20 gauge in left antecubital area, using aseptic technique. jd3 14:51 Chest Single View XRAY In Process Unspecified. EDMS 15:21 Patient has correct armband on for positive identification. Bed in low position. Call jd3 light in reach. Side rails up X2. Pulse ox on. NIBP on. 16:51 CT Chest For PE Angio In Process Unspecified. EDMS 18:38 No provider procedures requiring assistance completed. jd3 19:07 Primary Nurse role handed off by Andry Cabrera, RN tt3 19:12 IV discontinued, intact, bleeding controlled, No redness/swelling at site. Pressure jd3 dressing applied. Administered Medications: 14:37 Drug: NS 0.9% 1000 ml Route: IV; Rate: 1 bolus; Site: left antecubital; jd3 15:30 Follow up: Response: No adverse reaction; IV Status: Completed infusion; IV Intake: jd3 1000ml 14:37 Drug: Xopenex (3) 1.25 mg Route: Inhalation; jd3 15:30 Follow up: Response: No adverse reaction jd3 14:37 Drug: Decadron - Dexamethasone 10 mg Route: IVP; Site: left antecubital; jd3 15:30 Follow up: Response: No adverse reaction jd3 15:23 Drug: Pepcid 20 mg Route: IVP; Site: left antecubital; jd3 16:20 Follow up: Response: No adverse reaction jd3 15:23 Drug: Tylenol 650 mg Route: PO; jd3 16:20 Follow up: Response: No adverse reaction jd3 18:14 Drug: NS 0.9% 500 ml Route: IV; Rate: bolus; Site: left antecubital; jd3 19:00 Follow up: Response: No adverse reaction; IV Status: Completed infusion; IV Intake: jd3 500ml Intake: 15:30 IV: 1000ml; Total: 1000ml. jd3 19:00 IV: 500ml; Total: 1500ml. jd3 Outcome: 18:31 Discharge ordered by . alessandro 19:00 Discharged to home via wheelchair, with family. jd3 19:00 Condition: stable 19:00 Discharge instructions given to patient, Instructed on discharge instructions, follow up and referral plans. medication usage, Demonstrated understanding of instructions, follow-up care, medications, Prescriptions given X 2. 19:08 Patient left the ED. ll2 Signatures: Dispatcher [employer] EDMS Keith Christopher PA PA jmm Davies, Jonathon, RN RN jd3 Mireille Davison RN RN ca1 Reena Almanza RN RN ll2 Faustino Mulligan tt3 Corrections: (The following items were deleted from the chart) 15:23 15:18 BP 146 / 99; Pulse 125bpm; Resp 27bpm; Spontaneous; Pulse Ox 98% RA; jd3 jd3
[2020-04-25 19:15] VITALS: TEMP 97.5
[2020-04-25 19:21] VITALS: BP 119/61
[2020-04-25 19:22] VITALS: O2SAT 95
== END 2020-04-25 19:08 | disposition home or self-care (01) ==
LOC: ER 13:50
DX: O98.512 Other viral diseases complicating pregnancy, second trimester (principal); U07.1 COVID-19; Z3A.20 20 weeks gestation of pregnancy
CPT/HCPCS: 36415; 71045; 71275; 80048; 96361; 96374; 96375; 99284; J1100; J7030; J7040; Q9967

== ENCOUNTER 2021-06-05 19:47 | Emergency (ER) | payer OTHER, SELFPAY ==
--- OUTSIDE RECORDS SUMMARY | 2021-06-05 19:55 | XMS REPORT | Continuity of Care Document ---
:1995 Author Organization [facility] t Address [address] [place] [address] Care Team Providers Name Role Phone Jimy NILES R Primary Care Physician DEUCE SOLIS Attending Clinician Unavailable 2, Lab Attending Clinician Unavailable Deuce Solis MD Attending Clinician VANAPHAN Attending Clinician Unavailable Lu PA-C Attending Clinician Doctor Unassigned, Name Attending Clinician Unavailable JERARDO Attending Clinician Unavailable Jerardo CURIEL Attending Clinician Rashidafield DETECTIVE SERGEANT Attending Clinician Francheska Yip MD Attending Clinician Chapo CURIEL Attending Clinician Ultrasound Attending Clinician Unavailable Marci Meza MD Attending Clinician Pob, Lab Main Attending Clinician Unavailable Ana Anderson MD Attending Clinician DEUCE SOLIS Admitting Clinician Unavailable Jerardo CURIEL Admitting Clinician Payers Payer Name Policy Type Policy Number Effective Date Expiration Date [facility] [id number] 2019 [facility] 00:00:00 [employer] [place] [facility] [id number] 2011 [facility] 00:00:00 Problems Condition Condition Condition Status Onset Resolution Last Treating Co mments Source Name Details Category Date Date Treatment Clinician Date Morbid Morbid Disease Active Univers obesity obesity 3-17 ity of with body with body 00:00: Steve lucas mass index mass index 00 Me dical of of Branch 40.0-49.9 40.0-49.9 High risk High risk Disease Active Uni vers , , 2-17 [place] of [place] [facility] History of History of Disease Active U nivers gestationa gestationa 2-17 it y of l l 00:00: [place] hypertensi hypertensi 00 Me dical on on Branch Liveborn Liveborn Disease Active Unive rs , of infant, of 7 it y of [place] 00:00: Steve lucas , , 00 Me dical born in born in [facility] hospital by vaginal by vaginal delivery delivery Gestationa Gestationa Disease Active U nivers l l 7 ity of hypertensi hypertensi 00:[place] on, third on, third 00 Medi silver trimester trimester Bran ch Oligohydra Oligohydra Disease Active U nivers mnios in mnios in 6-28 ity of third third 00:00: [place] trimester, trimester, 00 Me dical single or single or Bran ch unspecifie unspecifie d fetus d fetus Depression Depression Disease Active U nivers , , 6-23 ity of unspecifie unspecifie 00:00[place] d d 00 Medical depression depression Br anch type type Anemia of Anemia of Disease Active Uni vers mother in mother in 5-23 ity of , , [place] antepartum antepartum 00 Me dical Branch Internal Internal Disease Active Unive rs thrombosed thrombosed 5- it y of hemorrhoid hemorrhoid 00:00: [place] [facility] Uterine Uterine Disease Active Univers size-date size-date - ity of discrepanc discrepanc 00:00: [place] y in third y in third 00 Me dical trimester trimester Bran ch Round Round Disease Active Univers ligament ligament 5-06 ity of pain pain 00:00: [place] 00 Medical Branch Pneumonia Pneumonia Disease Active Uni vers due to due to 3-23 ity of COVID-19 COVID-19 00:00: [place] virus virus 00 Medical Branch Supervisio Supervisio Disease Active 2019-02 U sera n of n of 2-18 ity of normal normal 00:00: [place] first first 00 Medical , , Br anch antepartum antepartum Encounter Encounter Disease Active Uni vers for for 4-05 ity of induction induction 00:00[place] of labor of labor 00 Medica l Branch Morbid Morbid Disease Active Univers obesity obesity 4-05 ity of 00:00: [place] [facility] Need for Need for Disease Active Unive rs HPV HPV 405 ity of vaccinatio vaccinatio 00:00: [place] n n 00 Medical [facility] Depo-Prove Depo-Prove Disease Active U sera ra ra 4-05 ity of contracept contracept 00:00[place] chen status chen status 00 [facility] Branch Risky Risky Disease Active Univers sexual sexual 405 ity of behavior behavior 00:00: [place] [facility] BMI BMI Disease Active Univers 36.0-36.9, 36.0-36.9, 4-05 it y of adult adult 00:00: [place] [facility] Obesity Obesity Disease Active Univers during during 4-05 [place] of 00:[place] [facility] [place] Hemorrhoid Hemorrhoid Disease Active U sera s, s, 9- ity of unspecifie unspecifie 00:00: [place] d d 00 Medical hemorrhoid hemorrhoid Br anch type type Bacterial Bacterial Disease Active Uni vers vaginosis vaginosis 1-23 ity of 00:00: [place] [facility] Well woman Well woman Disease Resolve 2017-05-30 2017-05-30 Univers exam exam d 11-22 00:00:00 20:34:50 ity of 00:00: [place] [facility] Screen for Screen for Disease Resolve 2017-05-30 2017-05-30 Univers STD STD d 3-14 00:00:00 20:34:53 ity of (sexually (sexually 00:00[place] transmitte transmitte 00 Co dical d disease) d disease) Br anch Obese Obese Disease Resolve 2017-05-30 2017-05-30 Univers d 3-14 00:00:00 20:35:00 ity of 00:00: [place] 00 Medical Branch Depo Depo Disease Resolve 2017-05-30 2017-05-30 Univers contracept contracept d 08-25 00:00:00 20:35:04 ity of ion ion 00:00: [place] 00 Medical Branch BV BV Disease Resolve 2015-11-23 2015-11-23 Univers (bacterial (bacterial d 09-15 00:00:00 16:44:49 ity of vaginosis) vaginosis) 00:00: [place] Other Other Disease Resolve 2015-05-09 2015-05-10 Univers specified specified d 09-15 00:00:00 01:34:20 ity of contracept contracept 00:00: [place] chen chen 00 Medical management management Br anch Chlamydia Chlamydia Disease Resolve 2015-05-09 2015-05-10 Univers trachomati trachomati d 05-15 00:00:00 01:34:09 ity of s s 00:00: [place] infection infection 00 Medi silver of lower of lower Branch genitourin genitourin penny sites penny sites Postcoital Postcoital Disease Resolve 2015-05-09 2015-05-10 Univers bleeding bleeding d 3 00:00:00 01:34:08 it y of 00:00: [place] 00 Medical Branch Contact Contact Disease Resolve 2012-022015-05-09 2015-05-10 Univers with or with or d 0-04 00:00:00 01:34:19 ity of exposure exposure 00:00: [place] to to 00 Medical sexually sexually Branch transmitte transmitte d disease d disease Encounter Encounter Disease Resolve 2015-05-09 2015-05-10 Univers for for d 08-25 00:00:00 01:34:14 ity of routine routine 00:00: [place] gynecologi gynecologi 00 Me dical silver silver Branch examinatio examinatio n n Not immune Not immune Disease Resolve 2015-05-09 2015-05-10 Univers to rubella to rubella d 08-25 00:00:00 01:34:17 ity of 00:00: [place] 00 Medical Branch Allergies, Adverse Reactions, Alerts Allergy Allergy Status Severity Reaction(s) Onset Inactive Treating Comm ents Source Name Type Date Date Clinician NO KNOWN Drug Active [facility] [place] [facility] ALLERGIE Class ity of S [place] [facility] [place] Social History Social Habit Start Date Stop Date Quantity Comments Source ASSERTION 2021-02-10 [facility] 00:00:00 Medical Branch Exposure to Not sure [facility] SARS-CoV-2 (event) Medica l Branch History SDCT [facility] [place] Alcohol Frequency Medical Branch History SDOH [facility] o [facility] [place] Alcohol Std Drinks Medica l Branch History [facility] o f [place] Alcohol Binge [facility] Alcohol intake 2021-04-13 2021-04-13 0 /d [facility] 00:00:00 00:00:00 Medical Branch Alcohol Comment 2021-03-16 2021-03-16 oc[facility]ional [facility] 00:00:00 00:00:00 Medical Branch History of tobacco 2019-12-24 Smoker [facility] use 00:00:00 Medical Branch Tobacco use and 2017-05-30 2017-05-30 Never used [facility] exposure 00:00:00 00:00:00 Medical Branch Sex Ass[birth year] At [birth year] [facility] 00:00:00 00:00:00 Medical Branch Smoking Status Start Date Stop Date Source Former smoker 2017-05-30 00:00:00 2017-05-30 00:00:00 [facility] Medical Branch Medications Ordered Filled Start Stop Current Ordering Indication Dosage Frequency Signature Comments Components Source Medication Medication Date Date Medication? Clinician (SIG) Name Name aspirin 81 Yes [id number] 81mg Take 1 U nivers mg EC 2-25 tablet by ity of tablet 00:00: mouth [place] 00 daily. Medical Branch aspirin 81 2021-0 Yes [id number] 81mg Take 1 U nivers mg EC 2-25 tablet by ity of tablet 00:00: mouth [place] 00 daily. Medical Branch aspirin 81 2021-0 Yes [id number] 81mg Take 1 U nivers mg EC 2-25 tablet by ity of tablet 00:00: mouth [place] 00 daily. Medical Branch aspirin 81 Yes [id number] 81mg Take 1 U nivers mg EC 2-25 tablet by ity of tablet 00:00: mouth [place] 00 daily. Medical Branch aspirin 81 2021-0 Yes [id number] 81mg Take 1 U nivers mg EC 2-25 tablet by ity of tablet 00:00: mouth [place] 00 daily. Medical Branch aspirin 81 2021-0 Yes [id number] 81mg Take 1 U nivers mg EC 2-25 tablet by ity of tablet 00:00: mouth [place] 00 daily. Medical Branch aspirin 81 2021-0 Yes [id number] 81mg Take 1 U nivers mg EC 2-25 tablet by ity of tablet 00:00: mouth [place] 00 daily. Medical Branch aspirin 81 2021-0 Yes [id number] 81mg Take 1 U nivers mg EC 2-25 tablet by ity of tablet 00:00: mouth [place] 00 daily. Medical Branch aspirin 81 2021-0 Yes [id number] 81mg Take 1 U nivers mg EC 2-25 tablet by ity of tablet 00:00: mouth [place] 00 daily. Medical Branch aspirin 81 2021-0 Yes [id number] 81mg Take 1 U nivers mg EC 2-25 tablet by ity of tablet 00:00: mouth [place] 00 daily. Medical Branch ferrous Yes [id number] 325mg Take 1 Un ita sulfate 2-11 tablet by ity of (IRON, 00:00: mouth 2 [place] FERROUS 00 (two) Medical SULFATE,) times Branch 325 mg (65 daily. mg iron) tablet ferrous Yes [id number] 325mg Take 1 Un ita sulfate 2-11 tablet by ity of (IRON, 00:00: mouth 2 [place] FERROUS 00 (two) Medical SULFATE,) times Branch 325 mg (65 daily. mg iron) tablet ferrous Yes [id number] 325mg Take 1 Un ita sulfate 2-11 tablet by ity of (IRON, 00:00: mouth 2 [place] FERROUS 00 (two) Medical SULFATE,) times Branch 325 mg (65 daily. mg iron) tablet ferrous Yes [id number] 325mg Take 1 Un ita sulfate 2-11 tablet by ity of (IRON, 00:00: mouth 2 [place] FERROUS 00 (two) Medical SULFATE,) times Branch 325 mg (65 daily. mg iron) tablet ferrous Yes [id number] 325mg Take 1 Un ita sulfate 2-11 tablet by ity of (IRON, 00:00: mouth 2 [place] FERROUS 00 (two) Medical SULFATE,) times Branch 325 mg (65 daily. mg iron) tablet ferrous Yes [id number] 325mg Take 1 Un ita sulfate 2-11 tablet by ity of (IRON, 00:00: mouth 2 [place] FERROUS 00 (two) Medical SULFATE,) times Branch 325 mg (65 daily. mg iron) tablet ferrous Yes [id number] 325mg Take 1 Un ita sulfate 2-11 tablet by ity of (IRON, 00:00: mouth 2 [place] FERROUS 00 (two) Medical SULFATE,) times Branch 325 mg (65 daily. mg iron) tablet ferrous Yes [id number] 325mg Take 1 Un ita sulfate 2-11 tablet by ity of (IRON, 00:00: mouth 2 [place] FERROUS 00 (two) Medical SULFATE,) times Branch 325 mg (65 daily. mg iron) tablet ferrous Yes [id number] 325mg Take 1 Un ita sulfate 2-11 tablet by ity of (IRON, 00:00: mouth 2 [place] FERROUS 00 (two) Medical SULFATE,) times Branch 325 mg (65 daily. mg iron) tablet ferrous Yes [id number] 325mg Take 1 Un ita sulfate 2-11 tablet by ity of (IRON, 00:00: mouth 2 [place] FERROUS 00 (two) Medical SULFATE,) times Branch 325 mg (65 daily. mg iron) tablet ferrous Yes [id number] 325mg Take 1 Un ita sulfate 2-11 tablet by ity of (IRON, 00:00: mouth 2 [place] FERROUS 00 (two) Medical SULFATE,) times Branch 325 mg (65 daily. mg iron) tablet ibuprofen Yes [id number] 600mg Take 1 Univers 600 mg 7-01 tablet by ity of tablet 00:00: mouth [place] 00 every 6 Medical (six) Branch hours as needed (Pain). Take with food or milk. ibuprofen Yes [id number] 600mg Take 1 Univers 600 mg 7-01 tablet by ity of tablet 00:00: mouth [place] 00 every 6 Medical (six) Branch hours as needed (Pain). Take with food or milk. ibuprofen Yes [id number] 600mg Take 1 Univers 600 mg 7-01 tablet by ity of tablet 00:00: mouth [place] 00 every 6 Medical (six) Branch hours as needed (Pain). Take with food or milk. ibuprofen 2020-0 Yes [id number] 600mg Take 1 Univers 600 mg 7-01 tablet by ity of tablet 00:00: mouth [place] 00 every 6 Medical (six) Branch hours as needed (Pain). Take with food or milk. ibuprofen 2020-0 Yes [id number] 600mg Take 1 Univers 600 mg 7-01 tablet by ity of tablet 00:00: mouth [place] 00 every 6 Medical (six) Branch hours as needed (Pain). Take with food or milk. ibuprofen 2020-0 Yes [id number] 600mg Take 1 Univers 600 mg 7-01 tablet by ity of tablet 00:00: mouth [place] 00 every 6 Medical (six) Branch hours as needed (Pain). Take with food or milk. ibuprofen 2020-0 Yes [id number] 600mg Take 1 Univers 600 mg 7-01 tablet by ity of tablet 00:00: mouth [place] 00 every 6 Medical (six) Branch hours as needed (Pain). Take with food or milk. ibuprofen 2020-0 2022- No [id number] 600mg Take 1 Univers 600 mg 7-01 01-20 tablet by ity of tablet 00:00: 00:00 mouth [place] 00 :00 every 6 Medical (six) Branch hours as needed (Pain). Take with food or milk. rho(D) Yes 300ug 300 mcg, Univer s immune 6-30 Intramuscu ity of globulin 15:05: lar, ONCE, [place] (RHOGAM) 26 For 1 Medical syringe 300 dose, Branch mcg Conditiona l, Routine ibuprofen Yes 600mg 600 mg, Univ ers (IBU) 6-30 Oral, ity of tablet 600 15:04: Q6HPRN, [place] mg 27 Starting Medical Wed Branch 08/24/20 at 1004, Until Discontinu ed, Routine, Pain (scale 4-6) acetaminoph 0 Yes 650mg 650 mg, Un ita en 6-30 Oral, ity of (TYLENOL) 15:04: Q6HPRN, [place] tablet 650 27 Starting Medic al mg Wed Branch 08/24/20 at 1004, Until Discontinu ed, Routine, Pain (scale 1-3) diphenhydrA 2021-0 Yes 25mg 25 mg, Univ ers MINE 6-30 Oral, ity of (BENADRYL) 15:04: Q6HPRN, [place] tablet 25 27 Starting Medica l mg Wed Branch 08/24/20 at 1004, Until Discontinu ed, Routine, Sleep, Itching ondansetron Yes 4mg 4 mg, Slow Univers (ZOFRAN 6-30 IV Push, ity of (PF)) 15:04: Q8HPRN, [place] injection 4 27 Starting Medi silver mg Wed Branch 08/24/20 at 1004, Until Discontinu ed, Routine, Nausea and Vomiting (N/V) simethicone Yes 160mg 160 mg, Un ita (GAS RELIEF 6-30 Oral, ity of (SIMETHICON 15:04: PC+HSPRN, [place] E)) 27 Starting Medical chewable Wed Branch tablet 160 08/24/20 at mg 1004, Until Discontinu ed, Routine, Gas docusate Yes 240mg 240 mg, Unive rs calcium 6-30 Oral, ity of (SURFAK) 15:04: QDAILYPRN, [place] capsule 240 27 Starting Medi silver mg Wed Branch 08/24/20 at 1004, Until Discontinu ed, Routine, Constipati on magnesium Yes 30mL 30 mL, Univer s hydroxide 630 Oral, ity of (MILK OF 15:04: QDAILYPRN, [place] MAGNESIA) 27 Starting Medica l 400 mg/5 mL Wed Branch suspension 08/24/20 at 30 mL 1004, Until Discontinu ed, Routine, Constipati on benzocaine- Yes Topical, Un ita menthol 6-30 PRN, ity of (DERMOPLAST 15:04: Starting [place] 20-0.5 % 26 Wed Medical topical 08/24/20 at Branch spray 1004, Until Discontinu ed, Routine, Perineum discomfort FENTanyl 2 2020- No Intra-op Un ita mcg/mL + 08-24 06-30 ity of bupivacaine 02:04: 18:15 [place] 0.125% in 00 :44 Medical NS 250 mL Branch epidural bag lidocaine-e 2020- No Epidural, Univers pinephrine 08-24 ONCE INTRA it y of (XYLOCAINE 01:58: 18:15 PROCEDURE, [place] W/EPINEPHRI 00 :44 Starting Medi silver NE) 2 Tue Branch %-1:200,000 08/23/20 at injection 8, Until Discontinu ed, Routine, Intra-op lidocaine 2020- No Infiltrati U nivers 1% 08-24 on, ONCE ity of (XYLOCAINE) 01:54: 18:15 INTRA [place] 100 mg/10 00 :44 PROCEDURE, Medi silver mL (1 %) Starting Branch injection 08/23/20 at 2054, Until Discontinu ed, Routine, Intra-op proMETHazin 2020- No 25mg 25 mg, IV Univers e 08-24 Piggyback, ity of (PHENERGAN) 00:00: 23:37 ONCE, 1 [place] 25 mg in 00 :00 dose, Tue Medica l NaCl 0.9% 08/23/20 at Bran ch (NS) 50 mL 1900, IV Routine piggyback FENTanyl PF 2020- No 100ug 100 mcg, Univers (SUBLIMAZE 08-23 Slow IV ity o f (PF)) 22:49: 15:05 Push, [place] injection 36 :27 Q1HPRN, 2 Medic al 100 mcg doses, Branch Starting 08/23/20 at 1749, Until 08/24/20 at 1005, Routine, Pain (scale 7-10) misoprostol 2020- No 25ug 25 mcg, Un ita (CYTOTEC) 08-23 Vaginal, ity o f quarter-tab 13:30: 12:57 ONCE, 1 [place] let 25 mcg 00 :00 dose, Tue Medi silver 08/23/20 at Branch 0830, Routine LR 1000 mL 2020- No 2mU/min at 6-120 Univers + oxytocin 08-23 mL/hr, IV ity of 20 units IV 09:00: 15:05 Infusion, [place] Solution 00 :27 TITRATE, Medical Starting Branch 08/23/20 at 0400, Until Sat08/24/20 at 1005, JOSI misoprostol 2020- No 25ug 25 mcg, Un ita (CYTOTEC) 08-23 Oral, ity of quarter-tab 08:30: 08:41 ONCE, 1 [place] let 25 mcg 00 :00 dose, Tue [facility] 08/23/20 at Branch 0330, Routine misoprostol 2020- No 25ug 25 mcg, Un ita (CYTOTEC) 08-23 Oral, ity of quarter-tab 04:30: 04:34 ONCE, 1 [place] let 25 mcg 00 :00 dose, Sat [facility] 08/22/20 at Branch 2330, Routine D5W-LR IV 2020- No 1000mL at 125 Uni vers infusion 08-23 06-30 mL/hr, IV ity o f 1,000 mL 02:30: 15:05 Infusion, [place] 00 :27 CONTINUOUS Medical , Starting Branch [facility] 08/22/20 at 2130, Until Sat08/24/20 at 1005, Routine misoprostol 2020- No 25ug 25 mcg, Un ita (CYTOTEC) 08-23 Vaginal, ity o f quarter-tab 02:30: 03:16 ONCE, 1 [place] let 25 mcg 00 :00 dose, [facility] 08/22/20 at Branch 2130, Routine lactated 2020- No 500mL at 999 Unive rs ringers IV 08-23 06-30 mL/hr, 500 it y of infusion 02:20: 15:05 mL, IV [place] 500 mL 57 :27 Infusion, Medical PRN - SEE Branch INSTRUCTIO NS, Starting [facility] 08/22/20 at 2120, Until Sat08/24/20 at 1005, Routine witch Yes [id number] Apply to Uni vers joycelyn-glyce 5-20 area(s) as it y of rin pad 00:00: needed for [place] 00 Pain. Medical Branch [employer] Yes [id number] Apply to Uni vers joycelyn-glyce 5-20 area(s) as it y of rin pad 00:00: needed for [place] 00 Pain. Medical Branch wit Yes [id number] Apply to Uni vers joycelyn-glyce 5-20 area(s) as it y of rin pad 00:00: needed for [place] 00 Pain. Medical Branch [employer] Yes [id number] Apply to Uni vers joycelyn-glyce 5-20 area(s) as it y of rin pad 00:00: needed for [place] 00 Pain. Medical Branch [employer] Yes [id number] Apply to Uni vers joycelyn-glyce 5-20 area(s) as it y of rin pad 00:00: needed for [place] 00 Pain. Medical Branch [employer] Yes [id number] Apply to Uni vers joycelyn-glyce 5-20 area(s) as it y of rin pad 00:00: needed for [place] 00 Pain. Medical Branch [employer] Yes [id number] Apply to Uni vers joycelyn-glyce 5-20 area(s) as it y of rin pad 00:00: needed for [place] 00 Pain. Medical Branch [employer] Yes [id number] Apply to Uni vers joycelyn-glyce 5-20 area(s) as it y of rin pad 00:00: needed for [place] 00 Pain. Medical Branch [employer] Yes [id number] Apply to Uni vers joycelyn-glyce 5-20 area(s) as it y of rin pad 00:00: needed for [place] 00 Pain. Medical Branch [employer] Yes [id number] Apply to Uni vers joycelyn-glyce 5-20 area(s) as it y of rin pad 00:00: needed for [place] 00 Pain. Medical Branch [employer] 2021- No [id number] Apply to Un ita joycelyn-glyce 5-20 01-20 area(s) as i ty of rin pad 00:00: 00:00 needed for [place] as 00 :00 Pain. Medical Branch ferrous Yes [id number] 325mg Take 1 Un ita sulfate 5-07 tablet by ity of (IRON, 00:00: mouth [place] FERROUS 00 daily. Medical SULFATE,) Branch 325 mg (65 mg iron) tablet ascorbic Yes [id number] 500mg Take 1 U nivers acid, 5-07 tablet by ity of vitamin C, 00:00: mouth [place] 500 mg 00 daily. Medical tablet Branch docusate Yes [id number] 100mg Take 1 U nivers (COLACE) 5-07 capsule by ity o f 100 mg 00:00: mouth 2 [place] capsule 00 (two) Medical times Branch daily as needed for Constipati on. ferrous Yes [id number] 325mg Take 1 Un ita sulfate 5-07 tablet by ity of (IRON, 00:00: mouth [place] FERROUS 00 daily. Medical SULFATE,) Branch 325 mg (65 mg iron) tablet ascorbic Yes [id number] 500mg Take 1 U nivers acid, 5-07 tablet by ity of vitamin C, 00:00: mouth [place] 500 mg 00 daily. Medical tablet Branch docusate Yes [id number] 100mg Take 1 U nivers (COLACE) 5-07 capsule by ity o f 100 mg 00:00: mouth 2 [place] capsule 00 (two) Medical times Branch daily as needed for Constipati on. ferrous Yes [id number] 325mg Take 1 Un ita sulfate 5-07 tablet by ity of (IRON, 00:00: mouth [place] FERROUS 00 daily. Medical SULFATE,) Branch 325 mg (65 mg iron) tablet ascorbic Yes [id number] 500mg Take 1 U nivers acid, 5-07 tablet by ity of vitamin C, 00:00: mouth [place] 500 mg 00 daily. Medical tablet Branch docusate Yes [id number] 100mg Take 1 U nivers (COLACE) 5-07 capsule by ity o f 100 mg 00:00: mouth 2 [place] capsule 00 (two) Medical times Branch daily as needed for Constipati on. ferrous Yes [id number] 325mg Take 1 Un ita sulfate 5-07 tablet by ity of (IRON, 00:00: mouth [place] FERROUS 00 daily. Medical SULFATE,) Branch 325 mg (65 mg iron) tablet ascorbic Yes [id number] 500mg Take 1 U nivers acid, 5-07 tablet by ity of vitamin C, 00:00: mouth [place] 500 mg 00 daily. Medical tablet Branch docusate Yes [id number] 100mg Take 1 U nivers (COLACE) 5-07 capsule by ity o f 100 mg 00:00: mouth 2 [place] capsule 00 (two) Medical times Branch daily as needed for Constipati on. ferrous Yes [id number] 325mg Take 1 Un ita sulfate 5-07 tablet by ity of (IRON, 00:00: mouth [place] FERROUS 00 daily. Medical SULFATE,) Branch 325 mg (65 mg iron) tablet ascorbic Yes [id number] 500mg Take 1 U nivers acid, 5-07 tablet by ity of vitamin C, 00:00: mouth [place] 500 mg 00 daily. Medical tablet Branch docusate Yes [id number] 100mg Take 1 U nivers (COLACE) 5-07 capsule by ity o f 100 mg 00:00: mouth 2 [place] capsule 00 (two) Medical times Branch daily as needed for Constipati on. ferrous Yes [id number] 325mg Take 1 Un ita sulfate 5-07 tablet by ity of (IRON, 00:00: mouth [place] FERROUS 00 daily. Medical SULFATE,) Branch 325 mg (65 mg iron) tablet ascorbic Yes [id number] 500mg Take 1 U nivers acid, 5-07 tablet by ity of vitamin C, 00:00: mouth [place] 500 mg 00 daily. Medical tablet Branch docusate Yes [id number] 100mg Take 1 U nivers (COLACE) 5-07 capsule by ity o f 100 mg 00:00: mouth 2 [place] capsule 00 (two) Medical times Branch daily as needed for Constipati on. ferrous Yes [id number] 325mg Take 1 Un ita sulfate 5-07 tablet by ity of (IRON, 00:00: mouth [place] FERROUS 00 daily. Medical SULFATE,) Branch 325 mg (65 mg iron) tablet ascorbic Yes [id number] 500mg Take 1 U nivers acid, 5-07 tablet by ity of vitamin C, 00:00: mouth [place] 500 mg 00 daily. Medical tablet Branch docusate Yes [id number] 100mg Take 1 U nivers (COLACE) 5-07 capsule by ity o f 100 mg 00:00: mouth 2 [place] capsule 00 (two) Medical times Branch daily as needed for Constipati on. ferrous Yes [id number] 325mg Take 1 Un ita sulfate 5-07 tablet by ity of (IRON, 00:00: mouth [place] FERROUS 00 daily. Medical SULFATE,) Branch 325 mg (65 mg iron) tablet ascorbic Yes [id number] 500mg Take 1 U nivers acid, 5-07 tablet by ity of vitamin C, 00:00: mouth [place] 500 mg 00 daily. Medical tablet Branch docusate Yes [id number] 100mg Take 1 U nivers (COLACE) 5-07 capsule by ity o f 100 mg 00:00: mouth 2 [place] capsule 00 (two) Medical times Branch daily as needed for Constipati on. ferrous Yes [id number] 325mg Take 1 Un ita sulfate 5-07 tablet by ity of (IRON, 00:00: mouth [place] FERROUS 00 daily. Medical SULFATE,) Branch 325 mg (65 mg iron) tablet ascorbic Yes [id number] 500mg Take 1 U nivers acid, 5-07 tablet by ity of vitamin C, 00:00: mouth [place] 500 mg 00 daily. Medical tablet Branch docusate Yes [id number] 100mg Take 1 U nivers (COLACE) 5-07 capsule by ity o f 100 mg 00:00: mouth 2 [place] capsule 00 (two) Medical times Branch daily as needed for Constipati on. ferrous Yes [id number] 325mg Take 1 Un ita sulfate 5-07 tablet by ity of (IRON, 00:00: mouth [place] FERROUS 00 daily. Medical SULFATE,) Branch 325 mg (65 mg iron) tablet ascorbic Yes [id number] 500mg Take 1 U nivers acid, 5-07 tablet by ity of vitamin C, 00:00: mouth [place] 500 mg 00 daily. Medical tablet Branch docusate Yes [id number] 100mg Take 1 U nivers (COLACE) 5-07 capsule by ity o f 100 mg 00:00: mouth 2 [place] capsule 00 (two) Medical times Branch daily as needed for Constipati on. ferrous 2021- No [id number] 325mg Take 1 U nivers sulfate 5-07 01-20 tablet by ity of (IRON, 00:00: 00:00 mouth [place] FERROUS 00 :00 daily. Medical SULFATE,) Branch 325 mg (65 mg iron) tablet ascorbic 2021- No [id number] 500mg Take 1 [facility] acid, 5-07 -20 tablet by ity of vitamin C, 00:00: 00:00 mouth [place] 500 mg 00 :00 daily. Medical tablet Branch docusate 2021- No [id number] 100mg Take 1 [facility] (COLACE) 07-0120 capsule by ity of 100 mg 00:00: 00:00 mouth 2 [place] capsule 00 :00 (two) Medical times Branch daily as needed for Constipati on. meclizine 2019-02 Yes Take by [facility] ers HCl 2-17 mouth. ity of (MECLIZINE 21:24: [place] ORAL) 10 Medical Branch meclizine 2019-02 Yes Take by [facility] ers HCl 2-17 mouth. ity of (MECLIZINE 21:24: [place] ORAL) 10 Medical Branch meclizine 2019-02 Yes Take by Univ ers HCl 1-19 mouth. ity of (MECLIZINE 22:13: [place] ORAL) 10 Medical Branch meclizine 2019-02 Yes Take by Univ ers HCl 1-19 mouth. ity of (MECLIZINE 22:13: [place] ORAL) 10 Medical Branch meclizine 2019-02 Yes Take by [facility] ers HCl 1-19 mouth. ity of (MECLIZINE 22:13: [place] ORAL) 10 Medical Branch 2019-02 Yes 7 weeks 1{tbl} Take 1 Un ita vit w/iron 1-19 gestation tablet by ity of fumarate 00:00: of mouth [place] and FA 00 daily. Medica l ( Branch VITAMIN WITH MINERALS) tablet 2019-02 Yes 7 weeks 1{tbl} Take 1 Un ita vit w/iron 1-19 gestation tablet by ity of fumarate 00:00: of mouth [place] and FA 00 daily. Medica l ( Branch VITAMIN WITH MINERALS) tablet 2019-02 Yes 7 weeks 1{tbl} Take 1 Un ita vit w/iron 1-19 gestation tablet by ity of fumarate 00:00: of mouth [place] and FA 00 daily. Medica l ( Branch VITAMIN WITH MINERALS) tablet 2019-02 Yes [id number] 1{tbl} Take 1 U nivers vit w/iron 1-19 tablet by ity of fumarate 00:00: mouth [place] and FA 00 daily. Medical ( Branch VITAMIN WITH MINERALS) tablet 2019-02 Yes [id number] 1{tbl} Take 1 U nivers vit w/iron 1-19 tablet by ity of fumarate 00:00: mouth [place] and FA 00 daily. Medical ( Branch VITAMIN WITH MINERALS) tablet pyridoxine, 2019-02 Yes [id number] 25mg Take 1 [facility] VITAMIN 1-19 tablet by ity of B-6, 25 mg 00:00: [place] tablet 00 (three) Medical times Branch daily. doxylamine 2019-02 Yes [id number] 25mg Take 1 U nivers 25 mg 1-19 tablet by ity of tablet 00:00: mouth at [place] 00 bedtime. Medical Branch 2019-02 Yes [id number] 1{tbl} Take 1 U nivers vit w/iron 1-19 tablet by ity of fumarate 00:00: mouth [place] and FA 00 daily. Medical ( Branch VITAMIN WITH MINERALS) tablet pyridoxine, 2019-02 Yes [id number] 25mg Take 1 [facility] VITAMIN 1-19 tablet by ity of B-6, 25 mg 00:00: [place] tablet 00 (three) Medical times Branch daily. doxylamine 2019-02 Yes [id number] 25mg Take 1 U nivers 25 mg 1-19 tablet by ity of tablet 00:00: mouth at [place] 00 bedtime. Medical Branch 2019-02 Yes [id number] 1{tbl} Take 1 U nivers vit w/iron 1-19 tablet by ity of fumarate 00:00: mouth [place] and FA 00 daily. Medical ( Branch VITAMIN WITH MINERALS) tablet pyridoxine, 2019-02 Yes [id number] 25mg Take 1 [facility] VITAMIN 1-19 tablet by ity of B-6, 25 mg 00:00: [place] tablet 00 (three) Medical times Branch daily. doxylamine 2019-02 Yes [id number] 25mg Take 1 U nivers 25 mg 1-19 tablet by ity of tablet 00:00: mouth at [place] 00 bedtime. Medical Branch 2019-02 Yes [id number] 1{tbl} Take 1 U nivers vit w/iron 1-19 tablet by ity of fumarate 00:00: mouth [place] and FA 00 daily. Medical ( Branch VITAMIN WITH MINERALS) tablet pyridoxine, 2019-02 Yes [id number] 25mg Take 1 [facility] VITAMIN 1-19 tablet by ity of B-6, 25 mg 00:00: [place] tablet 00 (three) Medical times Branch daily. doxylamine 2019-02 Yes [id number] 25mg Take 1 U nivers 25 mg 1-19 tablet by ity of tablet 00:00: mouth at [place] 00 bedtime. Medical Branch 2019-02 Yes [id number] 1{tbl} Take 1 U nivers vit w/iron 1-19 tablet by ity of fumarate 00:00: mouth [place] and FA 00 daily. Medical ( Branch VITAMIN WITH MINERALS) tablet pyridoxine, 2019-02 Yes [id number] 25mg Take 1 [facility] VITAMIN 1-19 tablet by ity of B-6, 25 mg 00:00: [place] tablet 00 (three) Medical times Branch daily. doxylamine 2019-02 Yes [id number] 25mg Take 1 U nivers 25 mg 1-19 tablet by ity of tablet 00:00: mouth at [place] 00 bedtime. Medical Branch 2019-02 Yes [id number] 1{tbl} Take 1 U nivers vit w/iron 1-19 tablet by ity of fumarate 00:00: mouth [place] and FA 00 daily. Medical ( Branch VITAMIN WITH MINERALS) tablet 2019-02 Yes [id number] 1{tbl} Take 1 U nivers vit w/iron 1-19 tablet by ity of fumarate 00:00: mouth [place] and FA 00 daily. Medical ( Branch VITAMIN WITH MINERALS) tablet 2019-02 Yes [id number] 1{tbl} Take 1 U nivers vit w/iron 1-19 tablet by ity of fumarate 00:00: mouth [place] and FA 00 daily. Medical ( Branch VITAMIN WITH MINERALS) tablet 2019-02 Yes [id number] 1{tbl} Take 1 U nivers vit w/iron 1-19 tablet by ity of fumarate 00:00: mouth [place] and FA 00 daily. Medical ( Branch VITAMIN WITH MINERALS) tablet 2019-02 Yes [id number] 1{tbl} Take 1 U nivers vit w/iron 1-19 tablet by ity of fumarate 00:00: mouth [place] and FA 00 daily. Medical ( Branch VITAMIN WITH MINERALS) tablet 2019-02 Yes [id number] 1{tbl} Take 1 U nivers vit w/iron 1-19 tablet by ity of fumarate 00:00: mouth [place] and FA 00 daily. Medical ( Branch VITAMIN WITH MINERALS) tablet 2019-02 Yes [id number] 1{tbl} Take 1 U nivers vit w/iron 1-19 tablet by ity of fumarate 00:00: mouth [place] and FA 00 daily. Medical ( Branch VITAMIN WITH MINERALS) tablet 2019-02 Yes [id number] 1{tbl} Take 1 U nivers vit w/iron 1-19 tablet by ity of fumarate 00:00: mouth [place] and FA 00 daily. Medical ( Branch VITAMIN WITH MINERALS) tablet 2019-02 Yes [id number] 1{tbl} Take 1 U nivers vit w/iron 1-19 tablet by ity of fumarate 00:00: mouth [place] and FA 00 daily. Medical ( Branch VITAMIN WITH MINERALS) tablet 2019-02 Yes [id number] 1{tbl} Take 1 U nivers vit w/iron 1-19 tablet by ity of fumarate 00:00: mouth [place] and FA 00 daily. Medical ( Branch VITAMIN WITH MINERALS) tablet 2019-02 Yes [id number] 1{tbl} Take 1 U nivers vit w/iron 1-19 tablet by ity of fumarate 00:00: mouth [place] and FA 00 daily. Medical ( Branch VITAMIN WITH MINERALS) tablet 2019-02 Yes [id number] 1{tbl} Take 1 U nivers vit w/iron 1-19 tablet by ity of fumarate 00:00: mouth [place] and FA 00 daily. Medical ( Branch VITAMIN WITH MINERALS) tablet 2019-02 Yes [id number] 1{tbl} Take 1 U nivers vit w/iron 1-19 tablet by ity of fumarate 00:00: mouth [place] and FA 00 daily. Medical ( Branch VITAMIN WITH MINERALS) tablet 2019-02 Yes [id number] 1{tbl} Take 1 U nivers vit w/iron 1-19 tablet by ity of fumarate 00:00: mouth [place] and FA 00 daily. Medical ( Branch VITAMIN WITH MINERALS) tablet 2019-02 Yes [id number] 1{tbl} Take 1 U nivers vit w/iron 1-19 tablet by ity of fumarate 00:00: mouth [place] and FA 00 daily. Medical ( Branch VITAMIN WITH MINERALS) tablet 2019-02 Yes [id number] 1{tbl} Take 1 U nivers vit w/iron 1-19 tablet by ity of fumarate 00:00: mouth [place] and FA 00 daily. Medical ( Branch VITAMIN WITH MINERALS) tablet 2019-02 Yes [id number] 1{tbl} Take 1 U nivers vit w/iron 1-19 tablet by ity of fumarate 00:00: mouth [place] and FA 00 daily. Medical ( Branch VITAMIN WITH MINERALS) tablet 2019-02 Yes [id number] 1{tbl} Take 1 U nivers vit w/iron 1-19 tablet by ity of fumarate 00:00: mouth [place] and FA 00 daily. Medical ( Branch VITAMIN WITH MINERALS) tablet 2019-02 Yes [id number] 1{tbl} Take 1 U nivers vit w/iron 1-19 tablet by ity of fumarate 00:00: mouth [place] and FA 00 daily. Medical ( Branch VITAMIN WITH MINERALS) tablet 2019-02 Yes [id number] 1{tbl} Take 1 U nivers vit w/iron 1-19 tablet by ity of fumarate 00:00: mouth [place] and FA 00 daily. Medical ( Branch VITAMIN WITH MINERALS) tablet 2019-02 Yes [id number] 1{tbl} Take 1 U nivers vit w/iron 1-19 tablet by ity of fumarate 00:00: mouth [place] and FA 00 daily. Medical ( Branch VITAMIN WITH MINERALS) tablet 2019-02 Yes [id number] 1{tbl} Take 1 U nivers vit w/iron 1-19 tablet by ity of fumarate 00:00: mouth [place] and FA 00 daily. Medical ( Branch VITAMIN WITH MINERALS) tablet 2019-02 Yes [id number] 1{tbl} Take 1 U nivers vit w/iron 1-19 tablet by ity of fumarate 00:00: mouth [place] and FA 00 daily. Medical ( Branch VITAMIN WITH MINERALS) tablet 2019-02 Yes [id number] 1{tbl} Take 1 U nivers vit w/iron 1-19 tablet by ity of fumarate 00:00: mouth [place] and FA 00 daily. Medical ( Branch VITAMIN WITH MINERALS) tablet 2019-02 Yes [id number] 1{tbl} Take 1 U nivers vit w/iron 1-19 tablet by ity of fumarate 00:00: mouth [place] and FA 00 daily. Medical ( Branch VITAMIN WITH MINERALS) tablet 2019-02 Yes [id number] 1{tbl} Take 1 U nivers vit w/iron 1-19 tablet by ity of fumarate 00:00: mouth [place] and FA 00 daily. Medical ( Branch VITAMIN WITH MINERALS) tablet 2019-02 Yes [id number] 1{tbl} Take 1 U nivers vit w/iron 1-19 tablet by ity of fumarate 00:00: mouth [place] and FA 00 daily. Medical ( Branch VITAMIN WITH MINERALS) tablet 2019-02 Yes [id number] 1{tbl} Take 1 U nivers vit w/iron 1-19 tablet by ity of fumarate 00:00: mouth [place] and FA 00 daily. Medical ( Branch VITAMIN WITH MINERALS) tablet 2019-02 Yes [id number] 1{tbl} Take 1 U nivers vit w/iron 1-19 tablet by ity of fumarate 00:00: mouth [place] and FA 00 daily. Medical ( Branch VITAMIN WITH MINERALS) tablet 2019-02 Yes [id number] 1{tbl} Take 1 U nivers vit w/iron 1-19 tablet by ity of fumarate 00:00: mouth [place] and FA 00 daily. Medical ( Branch VITAMIN WITH MINERALS) tablet PRENATABS 2019-02 Yes TK 1 T PO Uni vers RX tablet 1-18 QD ity of 00:00: [place] 00 Medical Branch PRENATABS 2019-02 Yes TK 1 T PO Uni vers RX tablet 1-18 QD ity of 00:00: [place] 00 Medical Branch PRENATABS 2019- Yes TK 1 T PO Uni vers RX tablet 1-18 QD ity of 00:00: [place] 00 Medical Branch PRENATABS 2019-02 Yes TK 1 T PO Uni vers RX tablet 1-18 QD ity of 00:00: 00 Medical Branch PRENATABS 2019-2020- No TK 1 T PO Un ita RX tablet 1-18 05-06 QD ity of 00:00: 00:00 [place] 00 :00 Medical Branch meclizine 2019- Yes TK 1 T PO Uni vers 25 mg 1-15 Q 8 H PRN. ity of tablet 00:00: [place] 00 [facility] hydrocortis Yes Hemorrhoids Apply to [facility] 11-20 , affected ity of (PREPARATIO 00:00: unspecified area(s) as [place] N H 00 hemorrhoid needed for Med ical HYDROCORTIS type Itching or Br anch ONE) 1 % Inflammati cream on. hydrocortis Yes Hemorrhoids Apply to [facility] 11-20 , affected ity of (PREPARATIO 00:00: unspecified area(s) as [place] N H 00 hemorrhoid needed for Med ical HYDROCORTIS type Itching or Br anch ONE) 1 % Inflammati cream on. hydrocortis Yes Hemorrhoids Apply to [facility] 11-20 , affected ity of (PREPARATIO 00:00: unspecified area(s) as [place] N H 00 hemorrhoid needed for Med ical HYDROCORTIS type Itching or Br anch ONE) 1 % Inflammati cream on. hydrocortis Yes [id number] Apply to [facility] 11-20 affected ity of (PREPARATIO 00:00: area(s) as [place] N H 00 needed for Medical HYDROCORTIS Itching or Br anch ONE) 1 % Inflammati cream on. metroNIDAZO Yes [id number] 500mg Take 1 [facility] LE (FLAGYL) 11-20 tablet by ity of 500 mg 00:00: mouth 2 [place] tablet 00 (two) Medical times Branch daily. hydrocortis Yes [id number] Apply to [facility] 11-20 affected ity of (PREPARATIO 00:00: area(s) as [place] N H 00 needed for Medical HYDROCORTIS Itching or Br anch ONE) 1 % Inflammati cream on. metroNIDAZO Yes [id number] 500mg Take 1 [facility] LE (FLAGYL) 11-20 tablet by ity of 500 mg 00:00: mouth 2 [place] tablet 00 (two) Medical times Branch daily. hydrocortis Yes [id number] Apply to [facility] 11-20 affected ity of (PREPARATIO 00:00: area(s) as [place] N H 00 needed for Medical HYDROCORTIS Itching or Br anch ONE) 1 % Inflammati cream on. metroNIDAZO Yes [id number] 500mg Take 1 [facility] LE (FLAGYL) 9-26 tablet by ity of 500 mg 00:00: mouth 2 [place] tablet 00 (two) Medical times Branch daily. hydrocortis Yes [id number] Apply to [facility] 11-20 affected ity of (PREPARATIO 00:00: area(s) as [place] N H 00 needed for Medical HYDROCORTIS Itching or Br anch ONE) 1 % Inflammati cream on. metroNIDAZO Yes [id number] 500mg Take 1 [facility] LE (FLAGYL) 11-20 tablet by ity of 500 mg 00:00: mouth 2 [place] tablet 00 (two) Medical times Branch daily. hydrocortis Yes [id number] Apply to [facility] [place] [facility] one 11-20 affected ity of (PREPARATIO 00:00: area(s) as [place] N H 00 needed for Medical HYDROCORTIS Itching or Br anch ONE) 1 % Inflammati cream on. metroNIDAZO Yes [id number] 500mg Take 1 [facility] LE (FLAGYL) 11-20 tablet by ity of 500 mg 00:00: mouth 2 [place] tablet 00 (two) Medical times Branch daily. hydrocortis Yes [id number] Apply to [facility] [place] [facility] one 11-20 affected ity of (PREPARATIO 00:00: area(s) as [place] N H 00 needed for Medical HYDROCORTIS Itching or Br anch ONE) 1 % Inflammati cream on. metroNIDAZO Yes [id number] 500mg Take 1 [facility] LE (FLAGYL) 11-20 tablet by ity of 500 mg 00:00: mouth 2 [place] tablet 00 (two) Medical times Branch daily. hydrocortis Yes [id number] Apply to [facility] [place] [facility] one 11-20 affected ity of (PREPARATIO 00:00: area(s) as [place] N H 00 needed for Medical HYDROCORTIS Itching or Br anch ONE) 1 % Inflammati cream on. hydrocortis Yes [id number] Apply to [facility] [place] [facility] one 11-20 affected ity of (PREPARATIO 00:00: area(s) as [place] N H 00 needed for Medical HYDROCORTIS Itching or Br anch ONE) 1 % Inflammati cream on. hydrocortis Yes [id number] Apply to [facility] [place] [facility] one 11-20 affected ity of (PREPARATIO 00:00: area(s) as [place] N H 00 needed for Medical HYDROCORTIS Itching or Br anch ONE) 1 % Inflammati cream on. hydrocortis Yes [id number] Apply to [facility] [place] [facility] one 11-20 affected ity of (PREPARATIO 00:00: area(s) as [place] N H 00 needed for Medical HYDROCORTIS Itching or Br anch ONE) 1 % Inflammati cream on. hydrocortis Yes [id number] Apply to [facility] 11-20 affected ity of (PREPARATIO 00:00: area(s) as [place] N H 00 needed for Medical HYDROCORTIS Itching or Br anch ONE) 1 % Inflammati cream on. hydrocortis Yes [id number] Apply to [facility] 11-20 affected ity of (PREPARATIO 00:00: area(s) as [place] N H 00 needed for Medical HYDROCORTIS Itching or Br anch ONE) 1 % Inflammati cream on. hydrocortis Yes [id number] Apply to [facility] 11-20 affected ity of (PREPARATIO 00:00: area(s) as [place] N H 00 needed for Medical HYDROCORTIS Itching or Br anch ONE) 1 % Inflammati cream on. hydrocortis Yes [id number] Apply to [facility] 11-20 affected ity of (PREPARATIO 00:00: area(s) as [place] N H 00 needed for Medical HYDROCORTIS Itching or Br anch ONE) 1 % Inflammati cream on. hydrocortis Yes [id number] Apply to [facility] 11-20 affected ity of (PREPARATIO 00:00: area(s) as [place] N H 00 needed for Medical HYDROCORTIS Itching or Br anch ONE) 1 % Inflammati cream on. hydrocortis Yes [id number] Apply to [facility] 11-20 affected ity of (PREPARATIO 00:00: area(s) as [place] N H 00 needed for Medical HYDROCORTIS Itching or Br anch ONE) 1 % Inflammati cream on. hydrocortis Yes [id number] Apply to [facility] 11-20 affected ity of (PREPARATIO 00:00: area(s) as [place] N H 00 needed for Medical HYDROCORTIS Itching or Br anch ONE) 1 % Inflammati cream on. hydrocortis Yes [id number] Apply to [facility] 11-20 affected ity of (PREPARATIO 00:00: area(s) as [place] N H 00 needed for Medical HYDROCORTIS Itching or Br anch ONE) 1 % Inflammati cream on. hydrocortis Yes [id number] Apply to [facility] 11-20 affected ity of (PREPARATIO 00:00: area(s) as [place] N H 00 needed for Medical HYDROCORTIS Itching or Br anch ONE) 1 % Inflammati cream on. hydrocortis Yes [id number] Apply to [facility] 11-20 affected ity of (PREPARATIO 00:00: area(s) as [place] N H 00 needed for Medical HYDROCORTIS Itching or Br anch ONE) 1 % Inflammati cream on. hydrocortis Yes [id number] Apply to [facility] 11-20 affected ity of (PREPARATIO 00:00: area(s) as [place] N H 00 needed for Medical HYDROCORTIS Itching or Br anch ONE) 1 % Inflammati cream on. hydrocortis Yes [id number] Apply to [facility] 11-20 affected ity of (PREPARATIO 00:00: area(s) as [place] N H 00 needed for Medical HYDROCORTIS Itching or Br anch ONE) 1 % Inflammati cream on. hydrocortis 2021- No [id number] Apply to [facility] 11-20 affected ity of (PREPARATIO 00:00: 00:00 area(s) as [place] N H 00 :00 needed for Medical HYDROCORTIS Itching or Br anch ONE) 1 % Inflammati cream on. Immunizations Ordered Filled Immunization Date Status Comments [facility] e Immunization Name Name TD 2020-06-14 Completed [facility] of 00:00:00 [facility] TDAP 2020-06-14 Completed [facility] of 00:00:00 [facility] TDAP 2020-06-14 Completed [facility] of 00:00:00 [facility] TDAP 2020-06-14 Completed [facility] of 00:00:00 [facility] TDAP 2020-06-14 Completed [facility] 00:00:00 [facility] TDAP 2020-06-14 Completed [facility] 00:00:00 [facility] TDAP 2020-06-14 Completed [facility] 00:00:00 [facility] TDAP 2020-06-14 Completed [facility] 00:00:00 [facility] TDAP 2020-06-14 Completed [facility] of 00:00:00 [facility] TDAP 2020-06-14 Completed University of 00:00:00 [facility] TDAP 2020-06-14 Completed University of 00:00:00 [facility] TDAP 2020-06-14 Completed University of 00:00:00 [facility] [place] [facility] TDAP 2020-06-14 Completed University of 00:00:00 [facility] TDAP 2020-06-14 Completed University of 00:00:00 [facility] [place] [facility] TDAP 2020-06-14 Completed University of 00:00:00 [facility] TDAP 2020-06-14 Completed University of 00:00:00 [facility] TDAP 2020-06-14 Completed University of 00:00:00 [facility] [place] [facility] TDAP 2020-06-14 Completed University of 00:00:00 [facility] [place] [facility] TDAP 2020-06-14 Completed University of 00:00:00 [facility] [place] [facility] TDAP 2020-06-14 Completed University of 00:00:00 [facility] TDAP 2020-06-14 Completed University of 00:00:00 [facility] TDAP 2020-06-14 Completed University of 00:00:00 [facility] TDAP 2020-06-14 Completed University of 00:00:00 [facility] TDAP 2020-06-14 Completed University of 00:00:00 [facility] TDAP 2020-06-14 Completed University of 00:00:00 [facility] TDAP 2020-06-14 Completed University of 00:00:00 [facility] TDAP 2020-06-14 Completed University of 00:00:00 [facility] TDAP 2020-06-14 Completed University of 00:00:00 [facility] TDAP 2020-06-14 Completed University of 00:00:00 [facility] TDAP 2020-06-14 Completed University of 00:00:00 [facility] TDAP 2020-06-14 Completed University of 00:00:00 [facility] Influenza Virus 2020-01-14 Completed Universit y of Vaccine Quad .5 mL 00:00:00 [place] [facility] IM 6+ MO Branch Influenza Virus 2020-01-14 Completed Universit y of Vaccine Quad .5 mL 00:00:00 [place] Medical IM 6+ MO Branch Influenza Virus 2020-01-14 Completed Universit y of Vaccine Quad .5 mL 00:00:00 [place] Medical IM 6+ MO Branch Influenza Virus 2020-01-14 Completed Universit y of Vaccine Quad .5 mL 00:00:00 [place] [facility] IM 6+ MO Branch Influenza Virus 2020-01-14 Completed Universit y of Vaccine Quad .5 mL 00:00:00 [place] Medical IM 6+ MO Branch Influenza Virus 2020-01-14 Completed Universit y of Vaccine Quad .5 mL 00:00:00 [place] Medical IM 6+ MO Branch Influenza Virus 2020-01-14 Completed Universit y of Vaccine Quad .5 mL 00:00:00 [place] Medical IM 6+ MO Branch Influenza Virus 2020-01-14 Completed Universit y of Vaccine Quad .5 mL 00:00:00 [place] Medical IM 6+ MO Branch Influenza Virus 2020-01-14 Completed Universit y of Vaccine Quad .5 mL 00:00:00 [place] Medical IM 6+ MO Branch Influenza Virus 2020-01-14 Completed Universit y of Vaccine Quad .5 mL 00:00:00 [place] Medical IM 6+ MO Branch Influenza Virus 2020-01-14 Completed Universit y of Vaccine Quad .5 mL 00:00:00 [place] Medical IM 6+ MO Branch Influenza Virus 2020-01-14 Completed Universit y of Vaccine [facility] .5 mL 00:00:00 [place] Medical IM 6+ MO Branch Influenza Virus 2020-01-14 Completed Universit y of Vaccine [facility] .5 mL 00:00:00 [place] Medical IM 6+ MO Branch Influenza Virus 2020-01-14 Completed Universit y of Vaccine [facility] .5 mL 00:00:00 [place] Medical IM 6+ MO Branch Influenza Virus 2020-01-14 Completed Universit y of Vaccine Quad .5 mL 00:00:00 [place] Medical IM 6+ MO Branch Influenza Virus 2020-01-14 Completed Universit y of Vaccine Quad .5 mL 00:00:00 [place] Medical IM 6+ MO Branch Influenza Virus 2020-01-14 Completed Universit y of Vaccine Quad .5 mL 00:00:00 [place] Medical IM 6+ MO Branch Influenza Virus 2020-01-14 Completed Universit y of Vaccine Quad .5 mL 00:00:00 [place] Medical IM 6+ MO Branch Influenza Virus 2020-01-14 Completed Universit y of Vaccine Quad .5 mL 00:00:00 [place] Medical IM 6+ MO Branch Influenza Virus 2020-01-14 Completed Universit y of Vaccine Quad .5 mL 00:00:00 [place] Medical IM 6+ MO Branch Influenza Virus 2020-01-14 Completed Universit y of Vaccine Quad .5 mL 00:00:00 [place] [facility] IM 6+ MO Branch Influenza Virus 2020-01-14 Completed Universit y of Vaccine Quad .5 mL 00:00:00 [place] [facility] IM 6+ MO Branch Influenza Virus 2020-01-14 Completed Universit y of Vaccine Quad .5 mL 00:00:00 [place] [facility] IM 6+ MO Branch Influenza Virus 2020-01-14 Completed Universit y of Vaccine Quad .5 mL 00:00:00 [place] Medical IM 6+ MO Branch Influenza Virus 2020-01-14 Completed Universit y of Vaccine Quad .5 mL 00:00:00 [place] Medical IM 6+ MO Branch Influenza Virus 2020-01-14 Completed Universit y of Vaccine Quad .5 mL 00:00:00 [place] Medical IM 6+ MO Branch Influenza Virus 2020-01-14 Completed Universit y of Vaccine Quad .5 mL 00:00:00 [place] [facility] IM 6+ MO Branch Influenza Virus 2020-01-14 Completed Universit y of Vaccine Quad .5 mL 00:00:00 [place] Medical IM 6+ MO Branch Influenza Virus 2020-01-14 Completed Universit y of Vaccine Quad .5 mL 00:00:00 [place] Medical IM 6+ MO Branch Influenza Virus 2020-01-14 Completed Universit y of Vaccine Quad .5 mL 00:00:00 [place] Medical IM 6+ MO Branch Influenza Virus 2020-01-14 Completed Universit y of Vaccine Quad .5 mL 00:00:00 [place] [facility] IM 6+ MO Branch Influenza Virus 2020-01-14 Completed Universit y of Vaccine Quad .5 mL 00:00:00 [place] [facility] IM 6+ MO Branch Influenza Virus 2020-01-14 Completed Universit y of Vaccine Quad .5 mL 00:00:00 [place] [facility] IM 6+ MO Branch Influenza Virus 2020-01-14 Completed Universit y of Vaccine Quad .5 mL 00:00:00 [place] [facility] IM 6+ MO Branch Influenza Virus 2020-01-14 Completed Universit y of Vaccine Quad .5 mL 00:00:00 [place] [facility] IM 6+ MO Branch Influenza Virus 2020-01-14 Completed Universit y of Vaccine Quad .5 mL 00:00:00 [place] [facility] IM 6+ MO Branch Influenza Virus 2020-01-14 Completed Universit y of Vaccine Quad .5 mL 00:00:00 [place] [facility] IM 6+ MO Branch Influenza Virus 2020-01-14 Completed Universit y of Vaccine Quad .5 mL 00:00:00 [place] [facility] IM 6+ MO Branch Influenza Virus 2020-01-14 Completed Universit y of Vaccine Quad .5 mL 00:00:00 [place] [facility] IM 6+ [place] [facility] HPV9 2017-05-30 Completed University of 00:00:00 [place] [facility] HPV9 2017-05-30 Completed University of 00:00:00 [place] [facility] HPV9 2017-05-30 Completed University of 00:00:00 [place] [facility] HPV9 2017-05-30 Completed University of 00:00:00 [place] [facility] HPV9 2017-05-30 Completed University of 00:00:00 [place] [facility] HPV9 2017-05-30 Completed University of 00:00:00 [place] [facility] HPV9 2017-05-30 Completed [facility] 00:00:00 [facility] HPV9 2017-05-30 Completed [facility] 00:00:00 [facility] HPV9 2017-05-30 Completed [facility] 00:00:00 [facility] HPV9 2017-05-30 Completed [facility] 00:00:00 [facility] HPV9 2017-05-30 Completed [facility] 00:00:00 [facility] HPV9 2017-05-30 Completed [facility] 00:00:00 [facility] HPV9 2017-05-30 Completed [facility] 00:00:00 [facility] HPV9 2017-05-30 Completed [facility] 00:00:00 [facility] HPV9 2017-05-30 Completed [facility] 00:00:00 [facility] HPV9 2017-05-30 Completed [facility] 00[facility]00:00 [facility] HPV9 2017-05-30 Completed [facility] 00:00:00 [facility] HPV9 2017-05-30 Completed [facility] 00:00:00 [facility] HPV9 2017-05-30 Completed [facility] 00:00:00 [facility] HPV9 2017-05-30 Completed [facility] 00[facility]00:00 [facility] HPV9 2017-05-30 Completed [facility] 00:00:00 [facility] HPV9 2017-05-30 Completed [facility] 00:00:00 [facility] HPV9 2017-05-30 Completed [facility] 00:00:00 [facility] HPV9 2017-05-30 Completed [facility] 00:00:00 [facility] HPV9 2017-05-30 Completed [facility] 00:00:00 [facility] HPV9 2017-05-30 Completed [facility] 00:00:00 [facility] HPV9 2017-05-30 Completed [facility] 00:00:00 [facility] HPV9 2017-05-30 Completed [facility] 00:00:00 [facility] HPV9 2017-05-30 Completed [facility] 00[facility]00:00 [facility] HPV9 2017-05-30 Completed [facility] 00[facility]00:00 [facility] HPV9 2017-05-30 Completed [facility] 00:00:00 [facility] HPV9 2017-05-30 Completed [facility] 00:00:00 [facility] HPV9 2017-05-30 Completed [facility] 00:00:00 [facility] HPV9 2017-05-30 Completed [facility] 00:00:00 [facility] HPV9 2017-05-30 Completed [facility] 00:00:00 [facility] HPV9 2017-05-30 Completed [facility] 00:00:00 [facility] HPV9 2017-05-30 Completed [facility] 00:00:00 [facility] HPV9 2017-05-30 Completed [facility] 00:00:00 [facility] HPV9 2017-05-30 Completed [facility] 00:00:00 [facility] HPV9 2017-05-30 Completed [facility] 00:00:00 [facility] HPV9 2016-03-19 Completed [facility] 00:00:00 [facility] HPV9 2016-03-19 Completed [facility] 00:00:00 [facility] HPV9 2016-03-19 Completed [facility] 00:00:00 [facility] HPV9 2016-03-19 Completed [facility] 00:00:00 [facility] HPV9 2016-03-19 Completed [facility] 00:00:00 [facility] HPV9 2016-03-19 Completed [facility] 00:00:00 [facility] HPV9 2016-03-19 Completed [facility] 00:00:00 [facility] HPV9 2016-03-19 Completed [facility] 00:00:00 [facility] HPV9 2016-03-19 Completed [facility] 00:00:00 [facility] HPV9 2016-03-19 Completed [facility] 00:00:00 [facility] HPV9 2016-03-19 Completed [facility] 00:00:00 [facility] HPV9 2016-03-19 Completed [facility] 00:00:00 [facility] HPV9 2016-03-19 Completed [facility] 00:00:00 [facility] HPV9 2016-03-19 Completed [facility] 00:00:00 [facility] HPV9 2016-03-19 Completed [facility] 00:00:00 [facility] HPV9 2016-03-19 Completed [facility] 00:00:00 [facility] HPV9 2016-03-19 Completed [facility] 00:00:00 [facility] HPV9 2016-03-19 Completed [facility] 00:00:00 [facility] HPV9 2016-03-19 Completed [facility] 00:00:00 [facility] HPV9 2016-03-19 Completed [facility] 00:00:00 [facility] HPV9 2016-03-19 Completed [facility] 00:00:00 [facility] HPV9 2016-03-19 Completed [facility] 00:00:00 [facility] HPV9 2016-03-19 Completed [facility] 00:00:00 [facility] HPV9 2016-03-19 Completed [facility] 00:00:00 [facility] HPV9 2016-03-19 Completed [facility] 00:00:00 [facility] HPV9 2016-03-19 Completed [facility] 00:00:00 [facility] HPV9 2016-03-19 Completed [facility] 00:00:00 [facility] HPV9 2016-03-19 Completed [facility] 00:00:00 [facility] HPV9 2016-03-19 Completed [facility] 00:00:00 [facility] HPV9 2016-03-19 Completed [facility] 00:00:00 [facility] HPV9 2016-03-19 Completed [facility] 00:00:00 [facility] HPV9 2016-03-19 Completed [facility] 00:00:00 [facility] HPV9 2016-03-19 Completed [facility] 00:00:00 [facility] HPV9 2016-03-19 Completed [facility] 00:00:00 [facility] HPV9 2016-03-19 Completed [facility] 00:00:00 [facility] HPV9 2016-03-19 Completed [facility] 00:00:00 [facility] HPV9 2016-03-19 Completed [facility] 00:00:00 [facility] HPV9 2016-03-19 Completed [facility] 00:00:00 [facility] HPV9 2016-03-19 Completed [facility] 00:00:00 [facility] HPV9 2016-03-19 Completed [facility] 00:00:00 [facility] HPV9 2015-11-23 Completed [facility] 00:00:00 [facility] HPV9 2015-11-23 Completed [facility] 00:00:00 [facility] HPV9 2015-11-23 Completed [facility] 00:00:00 [facility] HPV9 2015-11-23 Completed [facility] 00:00:00 [facility] HPV9 2015-11-23 Completed [facility] 00:00:00 [facility] HPV9 2015-11-23 Completed [facility] 00:00:00 [facility] HPV9 2015-11-23 Completed [facility] 00:00:00 [facility] HPV9 2015-11-23 Completed [facility] 00:00:00 [facility] HPV9 2015-11-23 Completed [facility] 00:00:00 [facility] HPV9 2015-11-23 Completed [facility] 00:00:00 [facility] HPV9 2015-11-23 Completed [facility] 00:00:00 [facility] HPV9 2015-11-23 Completed [facility] 00:00:00 [facility] HPV9 2015-11-23 Completed [facility] 00:00:00 [facility] HPV9 2015-11-23 Completed [facility] 00:00:00 [facility] HPV9 2015-11-23 Completed [facility] 00:00:00 [facility] HPV9 2015-11-23 Completed [facility] 00:00:00 [facility] HPV9 2015-11-23 Completed [facility] 00:00:00 [facility] HPV9 2015-11-23 Completed [facility] 00:00:00 [facility] HPV9 2015-11-23 Completed [facility] 00:00:00 [facility] HPV9 2015-11-23 Completed [facility] 00:00:00 [facility] HPV9 2015-11-23 Completed [facility] 00:00:00 [facility] HPV9 2015-11-23 Completed [facility] 00:00:00 [facility] HPV9 2015-11-23 Completed [facility] 00:00:00 [facility] HPV9 2015-11-23 Completed [facility] 00:00:00 [facility] HPV9 2015-11-23 Completed [facility] 00:00:00 [facility] HPV9 2015-11-23 Completed [facility] 00:00:00 [facility] HPV9 2015-11-23 Completed [facility] 00:00:00 [facility] HPV9 2015-11-23 Completed [facility] 00:00:00 [facility] HPV9 2015-11-23 Completed [facility] 00:00:00 [facility] HPV9 2015-11-23 Completed [facility] 00:00:00 [facility] HPV9 2015-11-23 Completed [facility] 00:00:00 [facility] HPV9 2015-11-23 Completed [facility] 00:00:00 [facility] HPV9 2015-11-23 Completed [facility] 00:00:00 [facility] HPV9 2015-11-23 Completed [facility] 00:00:00 [facility] HPV9 2015-11-23 Completed [facility] 00:00:00 [facility] HPV9 2015-11-23 Completed [facility] 00:00:00 [facility] HPV9 2015-11-23 Completed [facility] 00:00:00 [facility] HPV9 2015-11-23 Completed [facility] 00:00:00 [facility] HPV9 2015-11-23 Completed [facility] 00:00:00 [facility] HPV9 2015-11-23 Completed [facility] 00:00:00 [facility] MMR 2011-12-11 Completed [facility] 00:00:00 [facility] MMR 2011-12-11 Completed [facility] 00:00:00 [facility] MMR 2011-12-11 Completed [facility] 00:00:00 [facility] MMR 2011-12-11 Completed [facility] 00:00:00 [facility] MMR 2011-12-11 Completed [facility] 00:00:00 [facility] MMR 2011-12-11 Completed [facility] 00:00:00 [facility] MMR 2011-12-11 Completed [facility] 00:00:00 [facility] MMR 2011-12-11 Completed [facility] 00:00:00 [facility] MMR 2011-12-11 Completed [facility] 00:00:00 [facility] MMR 2011-12-11 Completed [facility] 00:00:00 [facility] MMR 2011-12-11 Completed [facility] 00:00:00 [facility] MMR 2011-12-11 Completed [facility] 00:00:00 [facility] MMR 2011-12-11 Completed [facility] 00:00:00 [facility] MMR 2011-12-11 Completed [facility] 00:00:00 [facility] MMR 2011-12-11 Completed [facility] 00:00:00 [facility] MMR 2011-12-11 Completed [facility] 00:00:00 [facility] MMR 2011-12-11 Completed [facility] 00:00:00 [facility] MMR 2011-12-11 Completed [facility] 00:00:00 [facility] MMR 2011-12-11 Completed [facility] 00:00:00 [facility] MMR 2011-12-11 Completed [facility] 00:00:00 [facility] MMR 2011-12-11 Completed [facility] 00:00:00 [facility] MMR 2011-12-11 Completed [facility] 00:00:00 [facility] MMR 2011-12-11 Completed [facility] 00:00:00 [facility] MMR 2011-12-11 Completed [facility] 00:00:00 [facility] MMR 2011-12-11 Completed [facility] 00:00:00 [facility] MMR 2011-12-11 Completed [facility] 00:00:00 [facility] MMR 2011-12-11 Completed [facility] 00:00:00 [facility] MMR 2011-12-11 Completed [facility] 00:00:00 [facility] MMR 2011-12-11 Completed [facility] 00:00:00 [facility] MMR 2011-12-11 Completed [facility] 00:00:00 [facility] MMR 2011-12-11 Completed [facility] 00:00:00 [facility] MMR 2011-12-11 Completed [facility] 00:00:00 [facility] MMR 2011-12-11 Completed [facility] 00:00:00 [facility] MMR 2011-12-11 Completed [facility] 00:00:00 [facility] MMR 2011-12-11 Completed [facility] 00:00:00 [facility] MMR 2011-12-11 Completed [facility] 00:00:00 [facility] MMR 2011-12-11 Completed [facility] 00[facility]00:00 [facility] MMR 2011-12-11 Completed [facility] 00:00:00 [facility] MMR 2011-12-11 Completed [facility] 00:00:00 [facility] MMR 2011-12-11 Completed [facility] 00:00:00 [facility] TDAP 2011-02-25 Completed [facility] 00:00:00 [facility] TDAP 2011-02-25 Completed [facility] 00:00:00 [facility] TDAP 2011-02-25 Completed [facility] 00:00:00 [facility] TDAP 2011-02-25 Completed [facility] 00:00:00 [facility] TDAP 2011-02-25 Completed [facility] 00:00:00 [facility] TDAP 2011-02-25 Completed [facility] 00:00:00 [facility] TDAP 2011-02-25 Completed [facility] 00:00:00 [facility] TDAP 2011-02-25 Completed [facility] 00:00:00 [facility] TDAP 2011-02-25 Completed [facility] 00:00:00 [facility] TDAP 2011-02-25 Completed [facility] 00:00:00 [facility] TDAP 2011-02-25 Completed [facility] 00[facility]00:00 [facility] TDAP 2011-02-25 Completed [facility] 00:00:00 [facility] TDAP 2011-02-25 Completed [facility] 00:00:00 [facility] TDAP 2011-02-25 Completed [facility] 00:00:00 [facility] TDAP 2011-02-25 Completed [facility] 00:00:00 [facility] TDAP 2011-02-25 Completed [facility] 00:00:00 [facility] TDAP 2011-02-25 Completed [facility] 00:00:00 [facility] TDAP 2011-02-25 Completed [facility] 00:00:00 [facility] TDAP 2011-02-25 Completed [facility] 00[facility]00:00 [facility] TDAP 2011-02-25 Completed [facility] 00:00:00 [facility] TDAP 2011-02-25 Completed [facility] 00[facility]00:00 [facility] TDAP 2011-02-25 Completed [facility] 00:00:00 [facility] TDAP 2011-02-25 Completed [facility] 00:00:00 [facility] TDAP 2011-02-25 Completed [facility] 00:00:00 [facility] TDAP 2011-02-25 Completed [facility] 00:00:00 [facility] TDAP 2011-02-25 Completed [facility] 00[facility]00:00 [facility] TDAP 2011-02-25 Completed [facility] 00:00:00 [facility] TDAP 2011-02-25 Completed [facility] 00:00:00 [facility] TDAP 2011-02-25 Completed [facility] 00:00:00 [facility] TDAP 2011-02-25 Completed [facility] 00:00:00 [facility] TDAP 2011-02-25 Completed [facility] 00:00:00 [facility] TDAP 2011-02-25 Completed [facility] 00:00:00 [facility] TDAP 2011-02-25 Completed [facility] 00:00:00 [facility] TDAP 2011-02-25 Completed [facility] 00:00:00 [facility] TDAP 2011-02-25 Completed [facility] 00:00:00 [facility] TDAP 2011-02-25 Completed [facility] 00:00:00 [facility] TDAP 2011-02-25 Completed [facility] 00:00:00 [facility] TDAP 2011-02-25 Completed [facility] 00:00:00 [facility] TDAP 2011-02-25 Completed [facility] 00:00:00 [facility] TDAP 2011-02-25 Completed University 00:00:00 [facility] Vital Signs Vital Name Observation Time Observation Value Comments Source Systolic blood 2021-05-11 20:07:00 135 mm[Hg] [facility] pressure [facility] Diastolic blood 2021-05-11 20:07:00 73 mm[Hg] Unive rsity of pressure [facility] Heart rate 2021-05-11 20:07:00 86 /min [facility] Body temperature 2021-05-11 20:07:00 37 [facility] Body height 2021-05-11 20:07:00 162.6 cm [facility] Body weight 2021-05-11 20:07:00 117.845 kg [facility] BMI 2021-05-11 20:07:00 44.59 kg/m2 [facility] Systolic blood 2021-04-13 19:30:00 132 mm[Hg] [facility] of pressure [facility] Diastolic blood 2021-04-13 19:30:00 71 mm[Hg] Unive rsity of pressure [facility] Heart rate 2021-04-13 19:30:00 99 /min [facility] Body temperature 2021-04-13 19:30:00 36.89 [facility] Respiratory rate 2021-04-13 19:30:00 18 /min [facility] Body height 2021-04-13 19:30:00 162.6 cm [facility] Body weight 2021-04-13 19:30:00 116.121 kg [facility] BMI 2021-04-13 19:30:00 43.94 kg/m2 [facility] Systolic blood 2021-03-16 20:57:00 117 mm[Hg] [facility] of pressure [facility] Diastolic blood 2021-03-16 20:57:00 76 mm[Hg] Unive rsity of pressure [facility] Heart rate 2021-03-16 20:57:00 87 /min [facility] Body temperature 2021-03-16 20:57:00 37.06 [facility] Body height 2021-03-16 20:57:00 162.6 cm [facility] Body weight 2021-03-16 20:57:00 116.756 kg [facility] BMI 2021-03-16 20:57:00 44.18 kg/m2 [facility] Systolic blood 2020-08-25 12:15:00 128 mm[Hg] [facility]iver [facility]ity of pressure [facility] Diastolic blood 2020-08-25 12:15:00 65 mm[Hg] Unive rsity of pressure [facility] Heart rate 2020-08-25 12:15:00 81 /min [facility] Body temperature 2020-08-25 12:15:00 36.[address] [facility] [address] [facility] Respiratory rate 2020-08-25 12:15:00 20 /min [facility] of [facility] Oxygen saturation in 2020-08-25 12:15:00 99 /min [facility] Arterial blood by [facility] Pulse oximetry Branch Body height 2020-08-23 00:01:00 162.6 cm [facility] Body weight 2020-08-23 00:01:00 123.378 kg [facility] BMI 2020-08-23 00:01:00 46.69 kg/m2 [facility] Systolic blood 2020-06-30 16:37:00 104 mm[Hg] [facility] of pressure [facility] Diastolic blood 2020-06-30 16:37:00 62 mm[Hg] Unive rsity of pressure [facility] Heart rate 2020-06-30 16:37:00 100 /min [facility] Body temperature 2020-06-30 16:37:00 36.72 [facility] Respiratory rate 2020-06-30 16:37:00 18 /min [facility] ers[facility] of [facility] Body height 2020-06-30 16:37:00 167.6 cm [facility] Body weight 2020-06-30 16:37:00 115.531 kg [facility] BMI 2020-06-30 16:37:00 41.11 kg/m2 [facility] Procedures Procedure Date / Time Performing Clinician Source Performed POCT URINALYSIS W/O 2021-05-11 00:00:00 Nydia Lezama [facility] POCT URINALYSIS W/O 2021-04-13 00:00:00 Nayeli Solis [facility] EXTERNAL PROVIDER 2021-03-24 06:01:00 Doctor Unassigned, No [facility] US OB TRANSVAGINAL 2021-03-16 21:48:11 Nayeli Solis [facility] ASSIGNMENT OF BENEFITS 2021-03-16 20:44:10 Doctor Unassigned, No [facility] POCT TEST 2021-03-16 00:00:00 Nayeli Solis [facility] POCT URINALYSIS W/O 2021-03-16 00:00:00 Nayeli Solis [facility] DME/SUPPLY JUSTIFICATION 2020-09-12 05:01:00 Doctor Unassigned, No [facility] CBC WITH DIFF 2020-08-25 00:55:00 [facility] VENOUS CORD GAS 2020-08-24 14:55:00 [facility] CENTRAL NEURAXIAL BLOCK 2020-08-24 03:32:55 [facility] CBC WITH DIFF 2020-08-23 03:00:00 [facility] HEPATITIS B SURFACE 2020-08-23 03:00:00 Jerardo Oneida [facility] ANTIGEN [facility] HB ABO GROUPING 2020-08-23 03:00:00 [facility] RHO (D) IMMUNE GLOBULIN 2020-08-23 03:00:00 Oneida Kurtz [facility] ADC OR MARK ONLY - 2020-08-23 03:00:[address] [facility] HIV 1/2 AG-AB WITH 2020-08-23 03:00:00 [facility] [place] [facility] COVID-19 (ID NOW RAPID 2020-08-23 03:00:00 Jer[facility] TESTING) Medical Branch US PELVIS > 14 2020-08-23 02:16:42 [facility] ASSIGNMENT OF BENEFITS 2020-08-22 23:26:10 Doctor Unassigned, No [facility] NOTICE OF PRIVACY 2020-08-22 23:24:49 Doctor Unassigned, No [facility] PRACTICES Name Medical Branch CONSENT/REFUSAL FOR 2020-08-22 23:24:36 [facility] Medical [place] DISCLOSURE AND CONSENT, 2020-08-15 05:01:00 Doctor Unassigned, N o [facility] MEDICAL AND SURGICAL [facility] Medical [facility] PROCEDURES ASSIGNMENT OF BENEFITS 2020-06-30 17:32:30 Doctor Unassigned, No [facility] Branch ASSIGNMENT OF BENEFITS 2020-06-30 17:32:30 Doctor Unassigned, No [facility] EXTERNAL PROVIDER 2020-05-12 05:01:00 Doctor Unassigned, No [facility] RECORDS [facility] SCANNED LAB RESULTS 2020-03-15 06:01:00 [facility] 2020-01-14 21:04:37 Doctor Unassigned, No [facility] Plan of Care Planned Activity Planned Date Details Comments Source Future Scheduled 2030-06-14 DTaP,Tdap,and Td [facility] [place] Test 00:00:00 Vaccines (3 - Td) Medical Br anch [code = DTaP,Tdap,and Td Vaccines (3 - Td)] Future Scheduled 2030-06-14 DTaP,Tdap,and Td [facility] [place] Test 00:00:00 Vaccines (3 - Td) Medical Br anch [code = DTaP,Tdap,and Td Vaccines (3 - Td)] Future Scheduled 2030-06-14 DTaP,Tdap,and Td [facility] [place] Test 00:00:00 Vaccines (3 - Td) Medical Br anch [code = DTaP,Tdap,and Td Vaccines (3 - Td)] Future Scheduled 2021-01-13 Screening for [facility] Test 00:00:00 Chlamydia trachomatis Medica l Branch (procedure) [code = 310209096] Future Scheduled 2021-01-13 Screening for [facility] Test 00:00:00 Chlamydia trachomatis Medica l Branch (procedure) [code = 277370815] Future Scheduled 2021-01-13 Screening for [facility] Test 00:00:00 Chlamydia trachomatis Medica l Branch (procedure) [code = 490924359] Future Scheduled 2020-05-30 Screening for [facility] Test 00:00:00 malignant neoplasm of Medica l Branch cervix (procedure) [code = 221674861] Future Scheduled 2020-05-30 Screening for [facility] Test 00:00:00 malignant neoplasm of Medica l Branch cervix (procedure) [code = 987966948] Future Scheduled 2020-05-30 Screening for [facility] Test 00:00:00 malignant neoplasm of Medica l Branch cervix (procedure) [code = 325237499] Future Scheduled 2012 SARS-CoV-2 (COVID-19) [facility] [place] [facility] 00:00:00 Vaccine (1) [code = Medical Branch SARS-CoV-2 (COVID-19) Vaccine (1)] Future Scheduled 2012 SARS-CoV-2 (COVID-19) [facility] [place] [facility] 00:00:00 Vaccine (1) [code = Medical Branch SARS-CoV-2 (COVID-19) Vaccine (1)] Future Scheduled 2012 SARS-CoV-2 (COVID-19) [facility] [place] [facility] 00:00:00 Vaccine (1) [code = Medical Branch SARS-CoV-2 (COVID-19) Vaccine (1)] Future Scheduled 2008 Depression screening [facility] [place] [facility] 00:00:00 (procedure) [code = Medical Branch 560130592] Future Scheduled 2008 Depression screening [facility] [place] [facility] 00:00:00 (procedure) [code = Medical Branch 750321980] Future Scheduled 2008 Depression screening [facility] [place] [facility] 00:00:00 (procedure) [code = Medical Branch 046384849] Future Scheduled 1997 VARICELLA VACCINES (1 [facility] [place] [facility] 00:00:00 of 2 - 2-dose Medical Branch childhood series) [code = VARICELLA VACCINES (1 of 2 - 2-dose childhood series)] Future Scheduled 1997 VARICELLA VACCINES (1 [facility] [place] [facility] 00:00:00 of 2 - 2-dose Medical Branch childhood series) [code = VARICELLA VACCINES (1 of 2 - 2-dose childhood series)] Future Scheduled 1997 VARICELLA VACCINES (1 [facility] [place] [facility] 00:00:00 of 2 - 2-dose Medical Branch childhood series) [code = VARICELLA VACCINES (1 of 2 - 2-dose childhood series)] Future Scheduled HIV 1/2 AG-AB WITH [facility] [place] [facility] REFLEX [code = Medical Branc h 07333-9] Future Scheduled ADC OR MARK ONLY - [facility] [place] [facility] RPR [code = 64979-8] Medical Branch Future Scheduled GLUCOSE 1 HOUR POST [facility] [employer] Test PRANDIAL [code = [facility] 01819-2] Future Scheduled CBC WITH DIFF [code = [facility] [place] [facility] 95591-4] Medical Branch Encounters Start End Encounter Admission Attending Care Care Encounter Source Date/Time Date/Time Type Type Clinicians Facility Department ID 2020-12-26 Outpatient P [facility] JOSE [id number] Univers 04:28:49 ity [facility] 2020-12-26 Emergency [facility] [id number] Univers 04:28:[address] [facility] 2021-06-09 2021-06-09 Outpatient R [facility] [id number] Univers 09:45:00 09:45:[id number] [facility] 2021-06-08 2021-06-08 Outpatient R NAYELI SOLIS [facility] [id number] Univers 14:30:00 14:30:00 [id number] ity 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 2021-05-19 2021-05-19 Outpatient R IRMA NAYELI [facility] [id number] Univers 16:00:00 16:00:[address] [facility] 2021-05-19 2021-05-19 Telephone Nayeli Solis [facility] 1.2.840.114 [id number] Univers 00:00:00 00:00:00 Cam [place] 350.1.13.10 i [place] [phone] Co dical NAL 134 [facility] 2021-05-15 2021-05-15 [facility] 1.2.840.114 [id number] Univers 00:00:00 00:00:00 Cam [place] 350.1.13.10 i ty [place] [phone] Co dical NAL [address] [place] [address] 2021-05-11 2021-05-11 Outpatient R LU [facility] [id number] Univers 14:30:00 15:36:41 NYDIA ity [facility] 2021-05-11 2021-05-11 Routine Lu [facility] 1.2.031.156 [id number] Univers 14:30:00 15:36:41 Nydia MANRIQUE 350.1.13.10 ity of [place] [phone] Co dical NAL [address] [place] [address] 2021-05-11 2021-05-11 Outpatient R LU [facility] [id number] Univers 14:30:00 14:30:[id number] 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 Crafts Instructor 2, Adc Lab [facility] 1.2.840.114 [id number] Univers 10:30:00 10:30:00 Visit WyattmoeNydia coles HILARIA 350.1.13.10 [facility] 4.[place] [phone] Co dic[address] 2021-05-03 2021-05-03 Outpatient R [facility] [id number] Univers 10:15:00 10:15:00 [id number] [facility] 2021-05-03 2021-05-03 Outpatient R [facility] [id number] Univers 10:15:00 10:15:00 [facility] 2021-05-03 2021-05-03 Telephone Irma [facility] 1.2.840.114 [id number] Univers 00:00:00 00:00:00 Cam [place] 350.1.13.10 i ty [facility] 4.[place] [phone] Co dical NAL [address] [place] [address] 2021-05-01 2021-05-01 Telephone [facility] 1.2.840.114 [id number] Univers 00:00:00 00:00:00 Cam [place] 350.1.13.10 i ty of [place] 4[place] [phone] Co dical NAL [address] [place] [address] 2021-04-28 2021-04-28 Telephone Irma Nayeli [facility] 1.2.840.114 [id number] Univers 00:00:00 00:00:00 Cam [place] 350.1.13.10 i ty of [place] 4[place] [id number] Co dical NAL [address] [place] [address] 2021-04-24 2021-04-24 Arts And Crafts Instructor 2, Adc Lab [facility] 1.2.840.114 [id number] Univers 11:00:00 11:15:00 Visit Nayeli Solis 350.1.13.10 [place]y [place] [phone] Co liberty [facility] [address] [facility] 2021-04-24 2021-04-24 Outpatient R [facility] [id number] Univers 11:00:00 11:00:[id number] [facility] 2021-04-24 2021-04-24 Outpatient R IRMA [facility] [id number] Univers 11:00:00 11:00:[address] [facility] 2021-04-13 2021-04-13 Outpatient R NAYELI SOLIS [facility] [id number] Univers 13:00:00 14:16:[address] [facility] 2021-04-13 2021-04-13 Routine Irma [facility] 1.2.340.375 [id number] Univers 13:00:00 14:16:00 Deuce ABREUMUKESH 350.1.13.10 ity of [place] [phone] [facility] [address] [facility] 2021-04-13 2021-04-13 Outpatient R NAYELI SOLIS [facility] [id number] Univers 13:00:00 13:00:00 [id number] ity [facility] 2021-04-07 2021-04-07 Arts And Crafts Instructor 2, [facility] Lab [facility] 1.2.840.114 [id number] Univers 09:15:00 09:20:24 Visit Nayeli Solis 350.1.13.10 [place] [phone] Co dicagustina [facility] [address] [facility] 2021-04-07 2021-04-07 Outpatient R [facility] [id number] Univers 09:15:00 09:15:00 [id number] ity [facility] 2021-04-07 2021-04-07 Outpatient R IRMA [facility] [id number] Univers 09:15:00 09:15:[address] [facility] 2021-04-07 2021-04-07 Case Nayeli Solis [facility] 1.2.840.114 [id number] Univers 00:00:00 00:00:00 Management Cam CHETAN 350.1.13.10 ity of [place] [phone] [facility] 134 Branch 2021-03-24 2021-03-24 Orders Doctor EMMANUEL 1.2.840.114 [id number] Univers 00:00:00 00:00:00 Only Unassigned, KHURRAM 350.1.13.10 ity of [facility] 4.2.7.2.686 Lui as [phone] [place] [address] Branch 2021-03-21 2021-03-21 Outpatient R [facility] [id number] Univers 08:00:00 08:00:[id number] [facility] 2021-03-21 2021-03-21 Outpatient R [facility] [id number] Univers 08:00:00 08:00:[address] [facility] 2021-03-16 2021-03-16 Outpatient R SOLIS NAYELI [facility] [id number] Univers 14:30:00 15:45:[address] [facility] 2021-03-16 2021-03-16 Initial Nayeli Solis [facility] 1.2.320.895 [id number] Univers 14:30:00 15:45:46 Cam HILAR[place] 350.1.13.10 ity of [place] [phone] Co dical [address] 2021-03-16 2021-03-16 Outpatient R NAYELI SOLIS [facility] [id number] Univers 14:30:00 14:30:[id number] [facility] 2021-03-16 2021-03-16 Orders Doctor EMMANUEL 1.2.840.114 [id number] Univers 00:00:00 00:00:00 Only Unassigned, KHURRAM 350.1.13.10 ity of [place] [facility] 4.2.7.2.686 Lui as [phone] [facility] 009 Branch 2021-03-16 2021-03-16 Letter Nayeli Solis [facility] 1.2.427.488 [id number] Univers 00:00:00 00:00:00 (Out) Deuce MANRIQUE 350.1.13.10 i ty [place] [phone] Co dical [address] 2021-01-03 2021-01-03 Outpatient R ONEIDA KURTZ [facility] [id number] Univers 10:45:00 10:45:00 [id number] ity [facility] 2021-01-03 2021-01-03 Outpatient R ONEIDA KURTZ [facility] [id number] Univers 10:45:00 10:45:[address] [facility] 2020-10-27 2020-10-27 Outpatient R ONEIDA KURTZ [facility] [id number] Univers 08:00:00 08:00:00 [id number] ity [facility] 2020-10-27 2020-10-27 Outpatient R ONEIDA KURTZ [facility] [id number] Univers 08:00:00 08:00:00 ity [facility] 2020-10-24 2020-10-24 Outpatient R ONEIDA KURTZ [facility] [id number] Univers 13:45:00 13:45:00 [id number] ity [facility] 2020-10-24 2020-10-24 Outpatient R ONEIDA KURTZ [facility] [id number] Univers 13:45:00 13:45:00 ity [facility] 2020-10-14 2020-10-14 Patient Jerardo [facility] 1.2.840.114 [id number] Univers 00:00:00 00:00:00 Secure Msg [place] 350.1.13.10 ity of [facility] [place]2.7.2.[place] [id number] [place] [address] Branch 2020-10-03 2020-10-03 Outpatient R ONEIDA KURTZ [facility] [id number] Univers 11:15:00 11:15:00 [id number] ity [facility] 2020-10-03 2020-10-03 Outpatient R ONEIDA KURTZ [facility] [id number] Univers 11:15:00 11:15:[address] [facility] 2020-09-28 2020-09-28 Patient Oneida Kurtz [place] 1.2.840.114 [id number] Univers 00:00:00 00:00:00 Secure Msg [place] 350.1.13.10 ity of Women 4.2.7.2.686 [facility] [phone] [facility] 134 Branch 2020-09-19 2020-09-19 Outpatient R ONEIDA KURTZ [facility] [id number] Univers 13:00:00 13:00:00 [id number] ity [facility] 2020-09-19 2020-09-19 Outpatient R ONEIDA KURTZ [facility] [id number] Univers 13:00:00 13:00:00 ity [facility] 2020-09-15 2020-09-15 Outpatient R ONEIDA KURTZ [facility] [id number] Univers 08:15:00 08:15:00 [id number] ity [facility] 2020-09-15 2020-09-15 Outpatient R ONEIDA KURTZ [facility] [id number] Univers 08:15:00 08:15:00 ity [facility] 2020-09-12 2020-09-12 Orders Doctor BENITEZ 1.2.840.114 [id number] Univers 00:00:00 00:00:00 Only Unassigned, KHURRAM 350.1.13.10 ity of [place] [facility] 4.2.7.2.686 [facility] [phone] [facility] 009 Branch 2020-08-30 2020-08-30 Outpatient R ONEIDA KURTZ [facility] [id number] Univers 14:30:00 14:30:00 [id number] ity [facility] 2020-08-30 2020-08-30 Outpatient R ONEIDA KURTZ [facility] [id number] Univers 14:30:00 14:30:[address] [facility] 2020-08-22 2020-08-25 Hospital Oneida Kurtz [facility] 1.2.840.114 [id number] Univers 18:31:00 14:15:00 Encounter Hilaria 350.1.13.10 ity of [place] 4.2.7.2.686 [facility] [id number] [place] [id number] Branch 2020-08-24 2020-08-24 Anesthesia Lorelei [facility] 1.2.840.114 [id number] Univers 20:02:47 20:02:47 Event Nahun Manrique 350.1.13.10 i ty of [place] 4.2.7.2.686 [facility] [phone] [place] 653653 Branch 2020-08-23 2020-08-24 Anesthesia Conrad Pritchard [facility] 1.2.84 0.114 [id number] Univers 20:45:00 13:15:00 Event Tata Cowan 350.1.13.10 ity of [place] 4.2.7.2.686 [facility] [id number] [place] 653653 Branch 2020-08-22 2020-08-22 Outpatient R ONEIDA KURTZ [facility] [id number] Univers 16:15:00 16:15:[id number] [facility] 2020-08-22 2020-08-22 Outpatient R ONEIDA KURTZ [facility] [id number] Univers 16:15:00 16:15:[address] [facility] 2020-08-15 2020-08-15 Outpatient R ONEIDA UKRTZ [facility] [id number] Univers 13:30:00 13:30:[id number] [facility] 2020-08-15 2020-08-15 Outpatient R ONEIDA KURTZ [facility] [id number] Univers 13:30:00 13:30:[address] [facility] 2020-08-15 2020-08-15 Orders Doctor BENITEZ 1.2.840.114 [id number] Univers 00:00:00 00:00:00 Only Unassigned, KHURRAM 350.1.13.10 ity of [place] [facility] 4.2.7.2.686 [facility] [phone] [address] 2020-07-28 2020-07-28 Outpatient ONEIDA KURTZ [facility] [id number] Univers 13:00:00 13:00:00 [id number] ity [facility] 2020-07-28 2020-07-28 Outpatient R ONEIDA KURTZ [facility] [id number] Univers 13:00:00 13:00:00 ity [facility] 2020-07-20 2020-07-20 Arts And Crafts Instructor Bhavna Nunez [facility] 1.2 .840.114 [id number] Univers 11:29:12 11:59:12 Visit Margaret Meza ALIGNMENT TECHNICIAN [facility].1.13.10 [facility] 4.2.7.2.686 Lui as MATERNAL [id number] [facility] ical & CHILD [address] [place] [address] 2020-07-20 2020-07-20 Outpatient R [facility] [id number] Univers 11:30:00 11:30:00 [id number] [facility] 2020-07-20 2020-07-20 Outpatient P [facility] [id number] Univers 11:30:00 11:30:00 ity [facility] 2020-07-14 2020-07-14 Outpatient R ONEIDA KURTZ [facility] [id number] Univers 13:30:00 13:30:00 [id number] [facility] 2020-07-14 2020-07-14 Outpatient R ONEIDA KURTZ [facility] [id number] Univers 13:30:00 13:30:00 ity [facility] 2020-06-30 2020-06-30 Arts And Crafts Instructor Jett Posey Lab Main [facility] 1.2.8 40.114 [id number] Univers 12:32:56 12:47:56 Visit Oneida Kurtz [place] 350.1.13.10 [facility] [place] [phone] [address] 2020-06-30 2020-06-30 Outpatient R ONEIDA KURTZ [facility] [id number] Univers 11:15:00 11:15:00 [id number] ity [facility] 2020-06-30 2020-06-30 Outpatient R ONEIDA KURTZ [facility] [id number] Univers 11:15:00 11:15:00 ity [facility] 2020-06-30 2020-06-30 Orders Doctor EMMANUEL 1.2.840.114 [id number] Univers 00:00:00 00:00:00 Only Unassigned, KHURRAM 350.1.13.10 ity of [facility] 4.2.7.2.686 Lui as [phone] [address] 2020-06-20 2020-06-20 Arts And Crafts Instructor Ultrasound, [facility] 1.2 .840.114 [id number] Univers 08:33:48 09:03:48 Visit Margaret Meza ALIGNMENT TECHNICIAN 350.1.13.10 ity of [facility] 4.2.7.2.686 Lui as MATERNAL [id number] [facility] ical & CHILD [address] [place] [address] 2020-06-20 2020-06-20 Outpatient R [facility] [id number] Univers 08:45:00 08:45:00 [id number] ity [facility] 2020-06-20 2020-06-20 Outpatient P [facility] [id number] Univers 08:45:00 08:45:[address] [facility] 2020-06-14 2020-06-14 Outpatient R ONEIDA KURTZ [facility] [id number] Univers 16:00:00 16:00:00 [id number] ity [facility] 2020-06-14 2020-06-14 Outpatient R ONEIDA KURTZ [facility] [id number] Univers 13:45:00 13:45:00 ity [facility] 2020-05-18 2020-05-18 Arts And Crafts Instructor Ultrasound, [facility] 1.2 .840.114 [id number] Univers 14:39:45 15:39:45 Visit Yokasta Singer ALIGNMENT TECHNICIAN 350.1. 13.[address]7.2.686 Lui as MATERNAL [id number] [facility] ical & CHILD [address] [place] [address] 2020-05-18 2020-05-18 Outpatient P [facility] [id number] Univers 13:30:00 13:30:00 [id number] ity [facility] 2020-05-18 2020-05-18 Outpatient P [facility] [id number] Univers 13:30:00 13:30:[address] [facility] 2020-05-17 2020-05-17 Outpatient R ONEIDA KURTZ [facility] [id number] Univers 15:15:00 15:15:00 [id number] ity [facility] 2020-05-17 2020-05-17 Outpatient R ONEIDA KURTZ [facility] [id number] Univers 15:15:00 15:15:00 ity [facility] 2020-05-12 2020-05-12 Orders Doctor EMMANUEL 1.2.840.114 [id number] Univers 00:00:00 00:00:00 Only Unassigned, KHURRAM 350.1.13.10 [facility] 4.2.7.2.686 Lui as [id number] [address] 2020-05-04 2020-05-04 Outpatient P [facility] [id number] Univers 11:00:00 11:00:00 [id number] ity [facility] 2020-05-04 2020-05-04 Outpatient P [facility] [id number] Univers 11:00:00 11:00:00 ity [facility] 2020-05-03 2020-05-03 Outpatient R ONEIDA KURTZ [facility] [id number] Univers 08:00:00 08:00:00 [id number] ity [facility] 2020-05-03 2020-05-03 Outpatient R ONEIDA KURTZ [facility] [id number] Univers 08:00:00 08:00:00 ity [facility] 2020-04-21 2020-04-21 Outpatient R [facility] [id number] Univers 08:00:00 08:00:00 [id number] ity [facility] 2020-04-21 2020-04-21 Outpatient P [facility] [id number] Univers 08:00:00 08:00:00 ity [facility] 2020-04-07 2020-04-07 Arts And Crafts Instructor Kalpesh [facility] 1.2.840.114 [id number] 09:56:41 10:11:41 Visit Lab Main [place] 350.1.13.10 [place] 4.2.7.2.686 Professio [id number] [address] 2020-04-07 2020-04-07 Arts And Crafts Instructor Kalpesh [facility] Lab Main [facility] 1.2.8 40.114 [id number] [facility] [place] [facility] 09:56:41 10:11:41 Visit Oneida Kurtz 350.1.13.10 ity [facility] 4.2.7.2.[place] [id number] [address] 2020-04-07 2020-04-07 Outpatient R ONEIDA KURTZ [facility] [id number] Univers 08:30:00 08:30:00 [id number] ity [facility] 2020-04-07 2020-04-07 Outpatient R ONEIDA KURTZ [facility] [id number] Univers 08:30:00 08:30:00 ity [facility] 2020-03-15 2020-03-15 Arts And Crafts Instructor Kalpesh, [facility] 1.2.840.114 [id number] 13:44:30 13:59:30 Visit Lab Main Hilar[place] 350.1.13.10 [place] 4.2.7.2.686 Professio [phone] [address] 2020-03-15 2020-03-15 Arts And Crafts Instructor Kalpesh, [facility] Lab Main [facility] 1.2.8 40.114 [id number] [facility] [place] [facility] 13:44:30 13:59:30 Visit Oneida Kurtz 350.1.13.10 ity [facility] 4.2.7.2.[place] [id number] [address] 2020-03-15 2020-03-15 Outpatient R [facility] [id number] Univers 12:00:00 12:00:00 [id number] ity [facility] 2020-03-15 2020-03-15 Outpatient R ONEIDA KURTZ [facility] [id number] Univers 12:00:00 12:00:[address] [facility] 2020-03-15 2020-03-15 Orders Doctor EMMANUEL 1.2.840.114 [id number] Univers 00:00:00 00:00:00 Only Unassigned, KHURRAM 350.1.13.10 ity of [place] [facility] 4.2.7.2.686 Lui as [id number] [address] 2020-03-10 2020-03-10 Outpatient R FISHONEIDA [facility] [id number] Univers 10:00:00 10:00:[id number] [facility] 2020-03-10 2020-03-10 Outpatient R ONEIDA KURTZ [facility] [id number] Univers 10:00:00 10:00:[address] [facility] 2020-02-11 2020-02-11 Outpatient R ONEIDA KURTZ [facility] [id number] Univers 14:45:00 14:45:[address] [facility] 2020-02-11 2020-02-11 Outpatient R FISHONEIDA [facility] [id number] Univers 08:15:00 08:15:[id number] [facility] 2020-02-11 2020-02-11 Outpatient R ONEIDA KURTZ [facility] [id number] Univers 08:15:00 08:15:[address] [facility] 2020-01-20 2020-01-20 Telephone Oneida Kurtz [facility] 1.2.840.114 [id number] Univers 00:00:00 00:00:00 Hilaria 350.1.13.10 i ty of [place] 4[place].7.2.[place] [phone] Co dical [address] 2020-01-20 2020-01-20 Telephone FishOneida [facility] 1.2.840.114 [id number] 00:00:00 00:00:00 H[place] 350.1.13.10 [place] 4.2.7.2.686 Professio [phone] [address] 2020-01-14 2020-01-14 Outpatient R [facility] [id number] Univers 14:45:00 14:45:00 [id number] [facility] 2020-01-14 Outpatient R [facility] [id number] Univers 14:45:00 14:45:00 [facility] 2020-01-14 2020-01-14 Orders Doctor EMMANUEL [id number] Univers 00:00:00 00:00:00 Only Unassigned, KHURRAM [id number] ity of [place] [facility] 4.2.7.2.686 [facility] as [phone] [address] Results Test Description Test Time Test Comments Results Result Comments Source POCT URINALYSIS W/O SPECIFIC GRAVITY 2021-05-11 20:06:00 Test Item Value Reference Range Interpretation Comme nts POCT PH U (test code = 3254) n/a 5-8 POCT U LEUK EST (test code = 3263) n/a Negative - Negative POCT U NIT (test code = 3262) n/a Negative - Negative POCT U PROT (test code = 3259) Trace Negative - Negative POCT U GLU (test code = 3256) normal Negative - Negative POCT U KETONE (test code = 3258) n/a Negative - Negative POCT U BLD (test code = 3257) n/a Negative - Negative [facility]CIFIC [id number] 19:35:00 Test Item Value Reference Range Interpretation Comments POCT PH U (test code = 3254) n/a 5-8 POCT U LEUK EST (test code = 3263) n/a Negative - Negative POCT U NIT (test code = 3262) n/a Negative - Negative POCT U PROT (test code = 3259) neg Negative - Negative POCT U GLU (test code = 3256) neg Negative - Negative POCT U KETONE (test code = 3258) n/a Negative - Negative POCT U BLD (test code = 3257) n/a Negative - Negative Lab Interpretation (test code = Normal 71062-0) [facility] SPECIFIC [id number] 20:58:00 Test Item Value Reference Range Interpretation Comments POCT PH U (test code = 3254) n/a 5-8 POCT U LEUK EST (test code = n/a Negative - Negative 3263) POCT U NIT (test code = 3262) n/a Negative - Negative POCT U PROT (test code = 3259) negative Negative - Negative POCT U GLU (test code = 3256) negative Negative - Negative POCT U KETONE (test code = 3258) n/a Negative - Negative POCT U BLD (test code = 3257) n/a Negative - Negative [facility] [id number] 20:58:00 Test Item Value Reference Range Interpretation Comments POCT PREG (test code = 1605) Positive On board controls acceptable with C Yes Line (test code = 3574) POCT PREG LOT # (test code = 3575) POCT PREG TEST DATE (test code = 3576) [facility] with [id number] 02:00:33 Test Item Value Reference Range Interpretation Comments WBC (test code = See_Comment H [Automated 4290-2) message] The system which generated this result transmit elmira reference range : 4.30 - 11.10 10*3/?L. The reference range was not used to interpret this result as normal/abnormal . RBC (test code = See_Comment L [Automated 789-8) message] The system which generated this result transmit elmira reference range : 3.93 - 5.25 10*6/?L. The reference range was not used to interpret this result as normal/abnormal . HGB (test code = 10.5 g/dL 11.6-15.0 L 718-7) HCT (test code = 32.0 % 35.7-45.2 L 4544-3) MCV (test code = 86.7 fL 80.6-95.5 787-2) MCH (test code = 28.5 pg 25.9-32.8 785-6) MCHC (test code = 32.8 g/dL 31.6-35.1 786-4) RDW-SD (test code = 55.4 fL 39.0-49.9 H 64176-9) RDW-CV (test code = 17.3 % 12.0-15.5 H 788-0) PLT (test code = See_Comment [Automated 777-3) message] The system which generated this result transmit elmira reference range : 166 - 358 10*3/ ?L. The reference range was not u sed to interpret th is result as normal/abnormal . MPV (test code = 10.9 fL 9.5-12.9 58605-0) NRBC/100 WBC (test See_Comment [Automat ed code = 7813513324) message] The system which generated this result transmit elmira reference range : 0.0 - 10.0 /100 WBCs. The reference range was not used to interpret this result as normal/abnormal . NRBC x10^3 (test code <0.01 See_Comment [Auto mated = 6779798830) message] The system which generated this result transmit elmira reference range : 10*3/?L. The reference range was not used to interpret this result as normal/abnormal . GRAN MAT (NEUT) % 77.7 % (test code = 770-8) IMM GRAN % (test code 0.70 % = 0747446931) LYMPH % (test code = 13.3 % 736-9) MONO % (test code = 8.0 % 5905-5) EOS % (test code = 0.1 % 713-8) BASO % (test code = 0.2 % 706-2) GRAN MAT x10^3(ANC) 10.44 10*3/uL 1.88-7.09 H (test code = 4883141266) IMM GRAN x10^3 (test 0.10 10*3/uL 0.00-0.06 H code = 7335249085) LYMPH x10^3 (test code 1.79 10*3/uL 1.32-3.29 = 731-0) MONO x10^3 (test code 1.07 10*3/uL 0.33-0.92 H = 742-7) EOS x10^3 (test code = <0.03 0.03-0.39 L 711-2) BASO x10^3 (test code 0.03 10*3/uL 0.01-0.07 = 704-7) Lab Interpretation Abnormal (test code = 63724-2) [facility] (D) IMMUNE [id number] 16:18:22 Test Item Value Reference Range Interpretation Comments RHIG CANDIDATE? No- see comment Patient i s not a (test code = candidate for R hIg- 5055) Patient is Rh Positive.Perfor med at [facility] Laboratory Services - [facility] Blood [address] [place] [id number] Free: [phone] A No. [id number] [facility] [id number] 15:02:40 Test Item Value Reference Range Interpretation Comments VENOUS BASE EXCESS, CORD mEq/L (test code = 1615837100) VENOUS PH, CORD (test 7.25-7.45 L code = 6359488651) VENOUS PC02, CORD (test See_Comment H [Au tomated message] code = 7151016723) The syste m which generated this result transmitted ref erence range: 27 - 49 mmHg. The reference r ivelisse was not used to interpret this result as normal/abnor mal. VENOUS PO2, CORD (test See_Comment L [Aut omated message] code = 3299199826) The syste m which generated this result transmitted ref erence range: 17 - 41 mmHg. The reference r ivelisse was not used to interpret this result as normal/abnor mal. VENOUS BICARBONATE, CORD See_Comment [A utomated message] (test code = 1801706226) The system which generated this result transmitted ref erence range: 12 - 29 mEq/L. The reference r ivelisse was not used to interpret this result as normal/abnor mal. Lab Interpretation (test Abnormal code = 20568-2) [facility] HospitalARTERIAL CORD [id number] 15:00:07 Test Item Value Reference Range Interpretation Comments BASE EXCESS, CORD mEq/L (test code = 9125496795) AC PH, CORD (BEAKER) 7.18-7.38 (test code = 3040901498) PC02, CORD (test code See_Comment [Auto mated message] The = 5550297163) system which g enerated this result transmit elmira reference range : 32 - 66 mmHg. The refer ence range was not used to interpret this result as normal/abnormal . PO2, CORD (test code See_Comment [Autom ated message] The = 2173841053) system which g enerated this result transmit elmira reference range : 10 - 30 mmHg. The refer ence range was not used to interpret this result as normal/abnormal . BICARBONATE, CORD See_Comment [Automate d message] The (test code = system which ge nerated this 9296267506) result transmit elmira reference range : 17 - 27 mEq/L. The refe rence range was not used to interpret this result as normal/abnormal . [facility]axial [id number] 03:32:55 Conrad Pritchard MD ? ? 08/23/2020 10:40 PM Central Neuraxial Block Performed by: Conrad Pritchard MDAuthorized by: Conrad Pritchard MD Patient Location: OBStart Time: 08/23/2020 8:45 PMReasonfor Block: OB request, Patient request and Labor analgesiaStaff: ?Anesthesiologist: Conrad Pritchard MD ?Performed by: anesthesiologistPreanesthetic Checklist: patient identified, IV checked, risksand benefits explained, monitors and equipment checked, timeout performed, ob surgical consent/approval, pre-op evaluation, surgical consent, site marked and anesthesia consentProcedure: ?Type of Neuraxial: Continuous and Epidural ?Patient Position: sitting ?Prep: Betadine and patient draped ? ?Monito ring: heart rate, statistical programmer analyst / EKG, continuous pulse ox, heart rate / toco and NIBP ?Location: lumbar (1-5) ?Lumbar: L4-L5 ?Approach: midline ? ?Technique: SOREN airEpidural/Spinal Ringgold and/or Catheter: ?Epidural/Spinal Kit: Keenaun ?Needle Type: Tuohy ?Needle Gauge: 17 G ?Needle Length: 3.5 in (8.89 cm) ?Needle Insertion Depth: 6 ?Catheter Type: end hole ? ?Catheter Size: 19 G ? ?Catheter at Skin Depth: 11 ?Number of Attempts: 1 ?Test Dose: lidocaine 1.5% with epinephrine 1-to-200,000and negative ? ?Dose: 5 cc ? ?Catheter Securement Method: Tegaderm and surgical tapeAssessment: ?Sensory Level: below T10 ?Block Outcome: pain improved ? ?Procedure Assessment: patient tolerated procedure well with no complicationsNotes: ? Epidural catheter placed on first attempt. Negative test dose. No complications noted. Pt tolerated procedure well. [facility] HospitalHepatitis B Surface [id number] 17:04:26 Test Item Value Reference Range Interpretation Comments HBsAg Semi-Quantitative (test code = Negative Negative 5195-3) [facility] HospitalADC OR MARK ONLY - [id number] 09:50:30 Test Item Value Reference Range Interpretation Comments RPR (Qualitative) (test code = Nonreactive Nonreactive 28060-8) Lab Interpretation (test code = Normal 32309-3) [facility] HospitalHIV 1/2 AG-AB WITH [id number] 06:35:22 Test Item Value Reference Range Interpretation Comments HIV Negative Negative Semi-quantitative (test code = 60956-8) JOSH (test code = Non-reactive for HIV-1 JOSH) antigen and HIV-1/HIV-2 antibodies. ?No laboratory evidence of HIV infection. ?Repeat in 2-4 weeks if acute HIV infection is suspected. [facility] HospitalType and Screen - ONCE [id number] 04:06:39 Test Item Value Reference Range Interpretation Comments ABO & RH (test code O Positive Performe d at [facility] = 20) Laboratory Serv [facility] [place], [place] [address]Toll Free: [phone] A No. [id number] IAT (test code = Negative Performed a t [facility] 1185) Laboratory Serv [facility] [address] [place], [place] [id number] Free: [phone] A No. [id number] [facility] HospitalCOVID-19 (ID NOW RAPID TESTING)2020-08-23 03:26:48 Test Item Value Reference Range Interpretation Comments SARS-CoV-2 Rapid ID NOW Not Detected Not Detected (test code = 21047-1) JOSH (test code = JOSH) ID NOW COVID-19 Assay is an isothermal nucleic acid amplification test intended for the qualitative detection of nucleic acid from SARS-CoV-2 viral RNA in nasopharyngeal (GRAPHIC EDITOR) specimens. It is used under Emergency Use Authorization (EUA) by FDA. The limit of detection (LOD) of the assay is 125 Genome Equivalents/mL. A positive result is indicative of the presence of SARS-CoV-2 RNA. ?Clinical correlation with patient history and other diagnostic information is necessary to determine patient infection status. A negative (Not Detected) result does not preclude SARS-CoV-2 infection. In patients with clinical symptoms and other tests that are consistent with SARS-CoV-2 infection, negative results should be treated as presumptive negative and a new specimen should be tested with alternative PCR molecular test. Invalid: Please collect a new specimen for repeat patient testing if clinically indicated. Lab Interpretation Normal (test code = 91362-6) [facility] with [id number] 03:19:30 Test Item Value Reference Range Interpretation Comments WBC (test code = See_Comment [Automated 9890-2) message] The sy stem which generated this result transmitted reference range : 4.30 - 11.10 10*3/?L. The reference range was not used to interpret this result as normal/abnormal . RBC (test code = See_Comment [Automated 789-8) message] The sy stem which generated this result transmitted reference range : 3.93 - 5.25 10*6/?L. The reference range was not used to interpret this result as normal/abnormal . HGB (test code = 12.0 g/dL 11.6-15.0 718-7) HCT (test code = 36.8 % 35.7-45.2 4544-3) MCV (test code = 86.4 fL 80.6-95.5 787-2) MCH (test code = 28.2 pg 25.9-32.8 785-6) MCHC (test code = 32.6 g/dL 31.6-35.1 786-4) RDW-SD (test code = 55.8 fL 39.0-49.9 H 74727-3) RDW-CV (test code = 17.5 % 12.0-15.5 H 788-0) PLT (test code = See_Comment [Automated 777-3) message] The sy stem which generated this result transmitted reference range : 166 - 358 10*3/ ?L. The reference r ivelisse was not used to interpret this result as normal/abnormal . MPV (test code = 10.5 fL 9.5-12.9 30597-1) NRBC/100 WBC (test See_Comment [Automat ed code = 1625850874) message] The system which generated this result transmitted reference range : 0.0 - 10.0 /100 WBCs. The refer ence range was not u sed to interpret th is result as normal/abnormal . NRBC x10^3 (test code <0.01 See_Comment [Auto mated = 4502713657) message] The s ystem which generated this result transmitted reference range : 10*3/?L. The reference range was not used to interpret this result as normal/abnormal . GRAN MAT (NEUT) % 62.2 % (test code = 770-8) IMM GRAN % (test code 1.30 % = 9362931009) LYMPH % (test code = 28.5 % 736-9) MONO % (test code = 6.9 % 5905-5) EOS % (test code = 0.7 % 713-8) BASO % (test code = 0.4 % 706-2) GRAN MAT x10^3(ANC) 6.25 10*3/uL 1.88-7.09 (test code = 0026419854) IMM GRAN x10^3 (test 0.13 10*3/uL 0.00-0.06 H code = 7415577872) LYMPH x10^3 (test code 2.86 10*3/uL 1.32-3.29 = 731-0) MONO x10^3 (test code 0.69 10*3/uL 0.33-0.92 = 742-7) EOS x10^3 (test code = 0.07 10*3/uL 0.03-0.39 711-2) BASO x10^3 (test code 0.04 10*3/uL 0.01-0.07 = 704-7) Lab Interpretation Abnormal (test code = 54777-9) [facility] acute hospital PELVIS > 14 [id number] 02:26:58Impression: Oligohydramnios, with amniotic fluid index 4.09 cm. RL: 460 End of Report Electronicallysigned by Jamie King MD at 08/22/2020 9:26 PMOrdering Physician: ARIELLA KURTZ History: ?Evaluate amniotic fluid Technique: US PELVIS > 14 WEEKS Technical quality: Adequate Comparison: None Findings: ? There is a single intrauterine fetus in cephalic presentation. Fetalcardiac activityis documented, with a heart rate of 136-147 bpm. No otherfetal evaluation was performed. There is a posterior placenta. Amnioticfluid index is measured at 4.09 cm, with the deepest vertical pocketmeasuring 1.8 cm. [facility], Radiant Results Inft User - 08/22/2020 9:28 PM CDT Ordering Physician: ONEIDA KURTZHistory: Evaluate amniotic fluidTechnique: US PELVIS > 14 WEEKSTechnical quality: AdequateComparison: NoneFindings: There is a single intrauterine fetus in cephalic presentation. Fetalcardiac activity is documented, with a heart rate of 136-147 bpm. No otherfetal evaluation was performed. There is a posterior placenta. Amnioticfluid index is measured at 4.09 cm, with the deepest vertical pocketmeasuring 1.8 cm.IMPRESSIONImpression:Oligohydramnios, with amniotic fluid index 4.09 cm.RL: 460End of Report [facility]
--- NOTE | 2021-06-05 21:07 | ER ---
Nurse's Notes [facility] Name: Brit Singh Age: 26 yrs Sex: Female : 1995 Arrival Date: 06/05/2021 Time: 19:48 Bed Waiting Private MD: Diagnosis: ED Course: 06/05 19:48 Patient arrived in ED. ag3 Administered Medications: No medications were administered Outcome: 21:06 Patient left the ED. ll3 Signatures: Opal Daniels3 Miguel Robertson, RN RN 3
== END 2021-06-05 21:06 | disposition left against medical advice (07) ==
LOC: ER 19:47
DX: Z02.9 Encounter for administrative examinations, unspecified (principal)

== ENCOUNTER 2022-12-17 08:14 | Emergency (ER) | payer OTHER ==
--- OUTSIDE RECORDS SUMMARY | 2022-12-17 08:28 | XMS REPORT | Continuity of Care Document ---
:1995 Author Organization [facility] t Address [address] [facility] [address] [place] [address] Care Team Providers Name Role Phone PCP, PATIENT DOES NOT HAVE A Primary Care Physician UnavailNAYELI Johnson Attending Clinician Unavailable Irma CURIEL, Nayeli Mann Attending Clinician Yojana Parker MD Attending Clinician Doctor Unassigned, [place] Attending Clinician Unavailable Jen COLES, Cherri Covarrubias Attending Clinician Unavailable Deon WEEKS, Royal Attending Clinician SADIA HAYS Attending Clinician Unavailable Ultrasound, [facility] Attending Clinician Unavailable Sadia Hays MD Attending Clinician [phone] Room, [facility] Attending Clinician Unavailable YOJANA PARKER Attending Clinician Unavailable Pob, [facility] Lab Main Attending Clinician Unavailable Nuvia Hercules LMSW Attending Clinician MONICA NAJERA Attending Clinician Unavailable Monica Najera MD Attending Clinician Fellow, [facility] Attending Clinician Unavailable Jaswinder Valle DO Attending Clinician JASWINDER VALLE Attending Clinician Unavailable Paradise eMza MD Attending Clinician PARADISE MEZA Attending Clinician Unavailable PARADISE MEZA Attending Clinician Unavailable AMINA BUITRAGO Attending Clinician Unavailable AMINA BUITRAGO Attending Clinician Unavailable Nurse, [facility] Attending Clinician Unavailable Amina Buitrago MD Attending Clinician ROYAL ATKINSON Attending Clinician Unavailable 1, [facility] Attending Clinician Unavailable Mary Gonzalez MD Attending Clinician MARY GONZALEZ Attending Clinician Unavailable SEFERINO AMRBOSE Attending Clinician Unavailable Seferino Ambrose MD Attending Clinician Lab, [facility] - [facility] Attending Clinician Unavailable EDGAR OLIVA Attending Clinician Unavailable Edgar Jones Attending Clinician Francisco Shepherd Attending Clinician Unavailable ANDRES RILEY Attending Clinician Unavailable Only, [facility] Access Attending Clinician Unavailable IRVIN EDWARDS Attending Clinician Unavailable Irvin Camacho Attending Clinician ДМИТРИЙ NATARAJAN Attending Clinician Unavailable SAMREEN ALEXIS Attending Clinician Unavailable SAMREEN ALEXIS Attending Clinician Unavailable JORDEN BROOKE Attending Clinician Unavailable JORDEN BROOKE Attending Clinician Unavailable Eleanor Parkinson Attending Clinician ANETTE MORAN Attending Clinician Unavailable MAKAYLA BETTENCOURT Attending Clinician Unavailable Makayla Sweet Attending Clinician XANDER SILVA Attending Clinician Unavailable ALISTAIR ZENDEJAS Attending Clinician Unavailable ELEANOR FOOTE Attending Clinician Unavailable Yaya Latasha PUCKETT Attending Clinician [phone] Oneida Medel MD Attending Clinician NICA CARPENTER Attending Clinician Unavailable [facility], [facility] Attending Clinician Unavailable LATASHA HAM Attending Clinician Unavailable ONEIDA KURTZ Attending Clinician Unavailable Yuliana Leigh PA-C Attending Clinician Elkin Cruz MD Attending Clinician Ultrasound, [facility] Attending Clinician Unavailable Nurse, [facility] Attending Clinician Unavailable YULIANA LEIGH Attending Clinician Unavailable Jose RN, Nuvia Mckinney Attending Clinician Unavailable DANI ZHU Attending Clinician Unavailable Nisha Feliz Attending Clinician Unavailable Dani Zhu MD Attending Clinician 2, [facility] Attending Clinician Unavailable Nahun Moseley CRNA Attending Clinician Francheska Yip MD, Leonard Attending Clinician Tata Cowan MD Attending Clinician YOJANA PARKER Admitting Clinician Unavailable NAYELI SOLIS Admitting Clinician Unavailable Nayeli Solis MD Admitting Clinician MONICA NAJERA Admitting Clinician Unavailable Monica Najera MD Admitting Clinician EDGAR OLIVA Admitting Clinician Unavailable Physician, No Primary or Family Admitting Clinician UnavailIRVIN Del Cid Admitting Clinician Unavailable JORDEN BROOKE Admitting Clinician Unavailable MAKAYLA BETTENCOURT Admitting Clinician Unavailable Oneida Kurtz MD Admitting Clinician Payers Payer Name Policy Type Policy Number Effective Date Expiration Date [facility] [id number] 2021 STAR 00:00:00 [facility] [id number] 2019 PPO 00:00:00 [place] [id number] 2011 OF STATE 00:00:00 Problems Condition Condition Condition Status Onset Resolution Last Treating Co mments Source Name Details Category Date Date Treatment Clinician Date Maternal Maternal Disease Active Unive rs pregestati pregestati 8-14 it y of onal onal 00:00: [place] diabetes diabetes 00 Medica l classes B classes B Bran ch through R, through R, antepartum antepartum 37 weeks 37 weeks Disease Active Unive rs gestation gestation 8-14 ity of of of 00:00: [place] 00 [facility] Maternal Maternal Disease Active Unive rs pregestati pregestati 8-14 it y of onal onal 00:00: [place] diabetes diabetes 00 Medica l classes B classes B Bran ch through R, through R, antepartum antepartum Previous Previous Disease Active Unive rs 6-20 ity of section section 00:00: [place] 00 [facility] History of History of Disease Active U nivers 6-20 ity of delivery, delivery, 00:00: Steve lucas currently currently 00 [facility] , , Bran ch unspecifie unspecifie d d trimester trimester 28 weeks 28 weeks Disease Active Unive rs gestation gestation 6-15 ity of of of 00:00: [place] 00 [facility] Pregestati Pregestati Disease Active U nivers onal onal 8-02 ity of diabetes diabetes 00:00: [place] mellitus, mellitus, 00 [facility] White White class B class B Liveborn Liveborn Disease Active Unive rs , of infant, of 802 it y of [place] 00:00: Steve lucas , , 00 Me dical born in born in [facility] hospital by by delivery delivery Morbid Morbid Disease Active Univers obesity obesity 3-17 ity of with body with body 00:00: Steve lucas mass index mass index 00 Me dical of of Branch 40.0-49.9 40.0-49.9 High risk High risk Disease Active Uni vers , , 2-17 [place] y of antepartum antepartum [place] History of History of Disease Active U nivers gestationa gestationa 2-17 it y of l l 00:00: [place] hypertensi hypertensi 00 Me dical on on Branch Depression Depression Disease Active U nivers , , 6-23 ity of unspecifie unspecifie 00:00[place] 00 Medical depression depression Br anch type type Obesity in Obesity in Disease Active U nivers 4-05 ity of 00:00: [place] 00 Medical Branch Hemorrhoid Hemorrhoid Disease Active U nivers s, s, 9- ity of unspecifie unspecifie 00:00: [place] 00 Medical hemorrhoid hemorrhoid Br anch type type Allergies, Adverse Reactions, Alerts Allergy Allergy Status Severity Reaction(s) Onset Inactive Treating Comm ents Source Name Type Date Date Clinician No Known DA Active U [facility] Allergie 2-05 Clear s 00:00: [place] 00 [facility] NO KNOWN Drug Active Univers ALLERGIE Class ity of S [facility] Social History Social Habit Start Date Stop Date Quantity Comments Source ASSERTION 2022-02-05 University of 00:00:00 [facility] Gender identity Universit y of [facility] Sexual orientation Univer sity of [facility] History [facility] o f Alcohol Frequency [facility] edical Branch History SDNV University o f Alcohol Std Drinks [facility] History [facility] o f Alcohol Binge [facility] al [place] Alcohol intake 2022-10-23 2022-10-23 0 /d University of 00:00:00 00:00:00 [facility] Exposure to 2022-07-07 2022-07-17 Not sure University of SARS-CoV-2 (event) 00:00:00 13:30:00 [facility] History of Social 2021-11-10 2021-11-10 Univers ity of function 00:00:00 00:00:00 [facility] Tobacco use and 2021-09-04 2021-09-04 Smokeless tobacco Un iversity of exposure 00:00:00 00:00:00 non-user [facility] Alcohol Comment 2021-03-16 2021-03-16 ocassional Universit y of 00:00:00 00:00:00 [facility] History of tobacco 2019-12-24 Cigarette Smoker [facility] 00:00:00 [facility] Sex Ass[birth year] At [birth year] Universit y of 00:00:00 00:00:00 [facility] Smoking Status Start Date Stop Date Source Ex-smoker 2021-09-04 00:00:00 2021-09-04 00:00:00 [facility] Medications Ordered Filled Start Stop Current Ordering Indication Dosage Frequency Signature Comments Components Source Medication Medication Date Date Medication? Clinician (SIG) Name Name ibuprofen Yes 600mg 600 mg, Univ ers (IBU) 8-16 Oral, Q6H ity of tablet 600 05:00: ABX, First [place] mg 00 dose on Sat10/10/22 at 0000, Until Discontinu ed, Routine HYDROcodone 2022- Yes [id number] 1{tbl} Take 1 U nivers -acetaminop 10-10 tablet by it y of hen 5-325 00:00: 04:59 mouth [place] mg tablet 00 :00 every 6 Medical (six) Branch hours as needed for Pain (scale 7-10) (Alternate with Ibuprofen) for up to 7 days. Indication s: acute pain ibuprofen Yes 600mg 600 mg, Univ ers (IBU) 8-15 Oral, Q6H ity of tablet 600 23:00: ABX, First [place] mg 00 dose Medical (after Branch last modificati on) on Sat10/09/22 at 1800, Until Discontinu ed, Routine ferrous 2022- No Take by Univer s sulfate 10-09-15 mouth. ity of (IRON ORAL) 07:05: 00:00 [place] 15 :00 [facility] ferrous 2022- No Take by Univer s sulfate 10-09-15 mouth. ity of (IRON ORAL) 07:05: 00:00 [place] 15 :00 [facility] ketorolac 2022- Yes 30mg 30 mg, Unive rs (TORADOL) 10-0916 Slow IV ity of injection 05:00: 04:59 Push, Q6H [place] 30 mg 00 :00 ABX, 4 Medical doses, Branch First dose on Sat10/09/22 at 0000, Last dose on Sat10/09/22 at 1800, Routine ketorolac 2022-0 202- No 30mg 30 mg, Unive rs (TORADOL) 8-15 08-15 Slow IV ity of injection 05:00: 22:33 [place], Q6H [place] 30 mg 00 :34 ABX, 4 Medical doses, Branch First dose on Sat10/09/22 at 0000, Last dose on Sat10/09/22 at 1800, Routine acetaminoph 0 Yes [id number] 650mg Take 2 Univers en 325 mg 8-15 tablets by ity of tablet 00:00: mouth [place] 00 every 6 Medical (six) Branch hours as needed for Pain (scale 1-3) or Pain (scale 4-6). Yes [id number] 1{tbl} Take 1 Univers vitamin 8-15 tablet by ity of w/FA tablet 00:00: mouth in [place] 00 the Medical morning. Branch docusate 0 Yes [id number] 200mg Take 2 U nivers 100 mg 8-15 capsules ity of capsule 00:00: by mouth [place] 00 once daily Medical as needed Branch for Constipati on. ferrous Yes [id number] 325mg Take 1 Un ita sulfate 325 8-15 tablet by ity of mg (65 mg 00:00: [place] iron[place] 00 the Medical tablet morning Branch and 1 tablet in the evening. ibuprofen Yes [id number] 600mg Take 1 Univers 600 mg 8-15 tablet by ity of tablet 00:00: mouth [place] 00 every 6 Medical (six) Branch hours as needed (Pain). Take with food or milk. acetaminoph Yes [id number] 650mg Take 2 Univers en 325 mg 8-15 tablets by ity of tablet 00:00: mouth [place] 00 every 6 Medical (six) Branch hours as needed for Pain (scale 1-3) or Pain (scale 4-6). 0 Yes [id number] 1{tbl} Take 1 Univers vitamin 8-15 tablet by ity of w/FA tablet 00:00: mouth in [place] 00 the Medical morning. Branch docusate 0 Yes [id number] 200mg Take 2 U nivers 100 mg 8-15 capsules ity of capsule 00:00: by mouth [place] 00 once daily Medical as needed Branch for Constipati on. ferrous 2022-0 Yes [id number] 325mg Take 1 Un ita sulfate 325 8-15 tablet by ity of mg (65 mg 00:00: [place] iron[place] 00 the Medical tablet morning Branch and 1 tablet in the evening. ibuprofen 2022-0 Yes [id number] 600mg Take 1 Univers 600 mg 8-15 tablet by ity of tablet 00:00: mouth [place] 00 every 6 Medical (six) Branch hours as needed (Pain). Take with food or milk. acetaminoph 2022-0 Yes [id number] 650mg Take 2 Univers en 325 mg 8-15 tablets by ity of tablet 00:00: mouth [place] 00 every 6 Medical (six) Branch hours as needed for Pain (scale 1-3) or Pain (scale 4-6). 2022-0 Yes [id number] 1{tbl} Take 1 Univers vitamin 8-15 tablet by ity of w/FA tablet 00:00: mouth in [place] 00 the Medical morning. Branch docusate 2022-0 Yes [id number] 200mg Take 2 U nivers 100 mg 8-15 capsules ity of capsule 00:00: by mouth [place] 00 once daily Medical as needed Branch for Constipati on. ferrous 0 Yes [id number] 325mg Take 1 Un ita sulfate 325 8-15 tablet by ity of mg (65 mg 00:00: [place] iron[place] 00 the Medical tablet morning Branch and 1 tablet in the evening. ibuprofen 2022-0 Yes [id number] 600mg Take 1 Univers 600 mg 8-15 tablet by ity of tablet 00:00: mouth [place] 00 every 6 Medical (six) Branch hours as needed (Pain). Take with food or milk. acetaminoph 2022-0 Yes [id number] 650mg Take 2 Univers en 325 mg 8-15 tablets by ity of tablet 00:00: mouth [place] 00 every 6 Medical (six) Branch hours as needed for Pain (scale 1-3) or Pain (scale 4-6). 2022-0 Yes [id number] 1{tbl} Take 1 Univers vitamin 8-15 tablet by ity of w/FA tablet 00:00: mouth in [place] 00 the Medical morning. Branch docusate 2022-0 Yes [id number] 200mg Take 2 U nivers 100 mg 8-15 capsules ity of capsule 00:00: by mouth [place] 00 once daily Medical as needed Branch for Constipati on. ferrous 2022-0 Yes [id number] 325mg Take 1 Un ita sulfate 325 8-15 tablet by ity of mg (65 mg 00:00: [place] iron[place] 00 the Medical tablet morning Branch and 1 tablet in the evening. ibuprofen 2022-0 Yes [id number] 600mg Take 1 Univers 600 mg 8-15 tablet by ity of tablet 00:00: mouth [place] 00 every 6 Medical (six) Branch hours as needed (Pain). Take with food or milk. acetaminoph 0 Yes [id number] 650mg Take 2 Univers en 325 mg 8-15 tablets by ity of tablet 00:00: mouth [place] 00 every 6 Medical (six) Branch hours as needed for Pain (scale 1-3) or Pain (scale 4-6). 0 Yes [id number] 1{tbl} Take 1 Univers vitamin 8-15 tablet by ity of w/FA tablet 00:00: mouth in [place] 00 the Medical morning. Branch docusate 0 Yes [id number] 200mg Take 2 U nivers 100 mg 8-15 capsules ity of capsule 00:00: by mouth [place] 00 once daily Medical as needed Branch for Constipati on. ferrous 2022-0 Yes [id number] 325mg Take 1 Un ita sulfate 325 8-15 tablet by ity of mg (65 mg 00:00: [place] iron[place] 00 the Medical tablet morning Branch and 1 tablet in the evening. ibuprofen 0 Yes [id number] 600mg Take 1 Univers 600 mg 8-15 tablet by ity of tablet 00:00: mouth [place] 00 every 6 Medical (six) Branch hours as needed (Pain). Take with food or milk. acetaminoph 0 Yes [id number] 650mg Take 2 Univers en 325 mg 8-15 tablets by ity of tablet 00:00: mouth [place] 00 every 6 Medical (six) Branch hours as needed for Pain (scale 1-3) or Pain (scale 4-6). 2022-0 Yes [id number] 1{tbl} Take 1 Univers vitamin 8-15 tablet by ity of w/FA tablet 00:00: mouth in [place] 00 the Medical morning. Branch docusate 0 Yes [id number] 200mg Take 2 U nivers 100 mg 8-15 capsules ity of capsule 00:00: by mouth [place] 00 once daily Medical as needed Branch for Constipati on. ferrous 2022-0 Yes [id number] 325mg Take 1 Un ita sulfate 325 8-15 tablet by ity of mg (65 mg 00:00: [place] iron[place] 00 the Medical tablet morning Branch and 1 tablet in the evening. ibuprofen 2022-0 Yes [id number] 600mg Take 1 Univers 600 mg 8-15 tablet by ity of tablet 00:00: mouth [place] 00 every 6 Medical (six) Branch hours as needed (Pain). Take with food or milk. gabapentin 2022- Yes [id number] 300mg Take 1 Univers 300 mg 8-15 08-21 capsule by ity of capsule 00:00: 04:59 mouth in [place] 00 :00 the Medical morning Branch and 1 capsule at noon and 1 capsule in the evening. Do all this for 5 days. gabapentin 2022-0 2022- Yes [id number] 300mg Take 1 Univers 300 mg 8-15 08-21 capsule by ity of capsule 00:00: 04:59 mouth in [place] 00 :00 the Medical morning Branch and 1 capsule at noon and 1 capsule in the evening. Do all this for 5 days. acetaminoph Yes 650mg 650 mg, Un ita en 8-14 Oral, Q6H ity of (TYLENOL) 23:00: ABX, First [place] tablet 650 00 dose on Medica l mg [facility] 10/08/22 at 1800, Until Discontinu ed, Routine acetaminoph Yes 650mg 650 mg, Un ita en 8-14 Oral, Q6H ity of (TYLENOL) 23:00: ABX, First [place] tablet 650 00 dose on Medica l mg [facility] 10/08/22 at 1800, Until Discontinu ed, Routine gabapentin Yes 300mg 300 mg, Uni vers (NEURONTIN) 8-14 Oral, TID, it y of capsule 300 19:00: First dose [place] mg 00 on [facility] 10/08/22 at Branch 1400, Until Discontinu ed, Routine gabapentin 2022-0 Yes 300mg 300 mg, Uni vers (NEURONTIN) 814 Oral, TID, it y of capsule 300 19:00: First dose [place] mg 00 on [facility] Medical 10/08/22 at Branch 1400, Until Discontinu ed, Routine HYDROcodone 2022-0 Yes 1{tbl} 1 tablet, Univers -acetaminop 8-14 Oral, ity of hen (NORCO 17:00: Q6HPRN, [place] 5) 5-325 mg 00 Starting Medi silver tablet 1 on Sat [place] tablet 10/08/22 at 1200, Until Discontinu ed, Routine, Pain (scale 7-10), Alternate with Ibuprofen HYDROcodone 2022-0 Yes 1{tbl} 1 tablet, Univers -acetaminop 8-14 Oral, ity of hen (NORCO 17:00: Q6HPRN, [place] 5) 5-325 mg 00 Starting Medi silver tablet 1 on Sat [place] tablet 10/08/22 at 1200, Until Discontinu ed, Routine, Pain (scale 7-10), Alternate with Ibuprofen lactated 0 2022- No 1000mL at 125 [facility] ers ringers IV 10-08 08-14 mL/hr, ity of infusion 14:15: 23:37 1,000 mL, [place] as 1,000 mL 00 :00 IV Medical Infusion, Branch ONCE, 1 dose, On Sat10/08/22 at 0915, Routine rho(D) 2022-0 Yes 300ug 300 mcg, [facility] s immune 10-08 Intramuscu ity of globulin 14:07: lar, ONCE, [place] as (RHOGAM) 25 For 1 Medical syringe 300 dose, Branch mcg Conditiona l, Routine rho(D) 2022-0 Yes 300ug 300 mcg, Univer s immune -14 Intramuscu ity of globulin 14:07: lar, ONCE, [place] (RHOGAM) 25 For 1 Medical syringe 300 dose, Branch mcg Conditiona l, Routine diphenhydrA 0 Yes 25mg 25 mg, Univ ers MINE 10-08 Slow IV ity of (BENADRYL) 14:07: Push, [place] injection 17 Q6HPRN, Medical 25 mg Starting Branch on Sat10/08/22 at 0907, Until Discontinu ed, Routine, Itching diphenhydrA 2023-0 Yes 25mg 25 mg, Univ ers MINE 8-14 Oral, ity of (BENADRYL) 14:07: Q6HPRN, [place] tablet 25 17 Starting Medica l mg on Sat10/08/22 at 0907, Until Discontinu ed, Routine, Sleep, Itching ondansetron 3-0 Yes 4mg 4 mg, Slow Univers (ZOFRAN 8-14 IV Push, ity of (PF)) 14:07: Q8HPRN, [place] injection 4 17 Starting Medi silver mg on Sat10/08/22 at 0907, Until Discontinu ed, Routine, Nausea and Vomiting (N/V) bisacodyL 3-0 Yes 10mg 10 mg, Univer s (DULCOLAX) 8-14 Rectal, ity of suppository 14:07: QDAILYPRN [place] 10 mg 17 Starting Medical on Sat10/08/22 at 0907, Until Discontinu ed, Routine, Constipati on simethicone 3-0 Yes 160mg 160 mg, Un ita (GAS RELIEF 8-14 Oral, ity of (SIMETHICON 14:07: PC+HSPRN, [place] E)) 17 Starting Medical chewable on Sat tablet 160 10/08/22 at mg 0907, Until Discontinu ed, Routine, Gas docusate 2023-0 Yes 200mg 200 mg, Unive rs (COLACE) 8-14 Oral, ity of capsule 200 14:07: QDAILYPRN [place] mg 17 Starting Medical on Sat Branch 10/08/22 at 0907, Until Discontinu ed, Routine, Constipati on magnesium 3-0 Yes 30mL 30 mL, Univer s hydroxide 8-14 Oral, ity of (MILK OF 14:07: QDAILYPRN, [place] MAGNESIA) 17 Starting Medica l 400 mg/5 mL on Sat suspension 10/08/22 at 30 mL 0907, Until Discontinu ed, Routine, Constipati on lactated 2023-0 Yes 1000mL at 125 Unive rs ringers IV 8-14 mL/hr, ity of infusion 14:07: 1,000 mL, [place] 1,000 mL 17 IV Medical Infusion, Branch PRN, 1 dose, Starting on Sat10/08/22 at 0907, Until Discontinu ed, Routine diphenhydrA 2023-0 Yes 25mg 25 mg, Univ ers MINE 8-14 Slow IV ity of (BENADRYL) 14:07: Push, [place] injection 17 Q6HPRN, Medical 25 mg Starting Branch on Sat10/08/22 at 0907, Until Discontinu ed, Routine, Itching diphenhydrA 2023-0 Yes 25mg 25 mg, Univ ers MINE 8-14 Oral, ity of (BENADRYL) 14:07: Q6HPRN, [place] tablet 25 17 Starting Medica l mg on Sat Branch 10/08/22 at 0907, Until Discontinu ed, Routine, Sleep, Itching ondansetron 3-0 Yes 4mg 4 mg, Slow Univers (ZOFRAN 10-08 IV Push, ity of (PF)) 14:07: Q8HPRN, [place] injection 4 17 Starting Medi silver mg on Sat10/08/22 at 0907, Until Discontinu ed, Routine, Nausea and Vomiting (N/V) bisacodyL 3-0 Yes 10mg 10 mg, Univer s (DULCOLAX) 10-08 Rectal, ity of suppository 14:07: QDAILYPRN [place] 10 mg 17 Starting Medical on Sat Branch 10/08/22 at 0907, Until Discontinu ed, Routine, Constipati on simethicone 2023-0 Yes 160mg 160 mg, Un ita (GAS RELIEF 10-08 Oral, ity of (SIMETHICON 14:07: PC+HSPRN, [place] E)) 17 Starting Medical chewable on Sat tablet 160 10/08/22 at mg 0907, Until Discontinu ed, Routine, Gas docusate 2023-0 Yes 200mg 200 mg, Unive rs (COLACE) 14 Oral, ity of capsule 200 14:07: QDAILYPRN, [place] mg 17 Starting Medical on Sat Branch 10/08/22 at 0907, Until Discontinu ed, Routine, Constipati on magnesium 2023-0 Yes 30mL 30 mL, Univer s hydroxide 8-14 Oral, ity of (MILK OF 14:07: QDAILYPRN, [place] MAGNESIA) 17 Starting Medica l 400 mg/5 mL on Mon Branch suspension 10/08/22 at 30 mL 0907, Until Discontinu ed, Routine, Constipati on lactated 0 Yes 1000mL at 125 Unive rs ringers IV 8-14 mL/hr, ity of infusion 14:07: 1,000 mL, [place] 1,000 mL 17 IV Medical Infusion, Branch PRN, 1 dose, Starting on Sat10/08/22 at 0907, Until Discontinu ed, Routine mupirocin 2022-0 Yes Intra-op Univ ers (BACTROBAN 8-14 ity of OINT) 2 % 13:39: [place] skin 00 Medical ointment Branch mupirocin 0 Yes Intra-op Univ ers (BACTROBAN 8-14 ity of OINT) 2 % 13:39: [place] skin 00 Medical ointment Branch sodium 0 Yes PRN, Univers chloride 814 Starting ity of 0.9 % 12:15: on Sat [place] irrigation 00 10/08/22 at Med ical solution 0715, Branch Until Discontinu ed, Intra-op sodium 2022-0 Yes PRN, Univers chloride -14 Starting ity of 0.9 % 12:15: on Sat [place] irrigation 00 10/08/22 at Med ical solution 0715, Branch Until Discontinu ed, Intra-op Sliding 2022-2022- No Subcutaneo Uni vers Scale 10-08 us, ity of Insulin 10:19: 14:07 SEE-INSTRU [place] 09 :24 CTIONS, Medical Starting Branch on Sat10/08/22 at 0519, Until Sat10/08/22 at 0907, Routine sodium 2022-2022- No 30mL 30 mL, Univers citrate-cit 10-08 Oral, ity of bryson acid 10:19: 12:12 PRE-PROCED [place] (BICITRA) 09 :00 URE ONCE, Medic al 500-334 1 dose, Branch mg/5 mL Starting solution 30 on Mon mL 10/08/22 at 0519, Until Discontinu ed, Routine, Surgery/Pr ocedure lactated 2022-0 2022- No 500mL at 999 Unive rs ringers IV 8-14 08-14 mL/hr, 500 it y of infusion 10:19: 14:07 mL, IV [place] 500 mL 09 :24 Infusion, Medical PRN - SEE Branch INSTRUCTIO NS, Starting on Sat10/08/22 at 0519, Until Sat10/08/22 at 0907, Routine NaCl 0.9% 0 Yes 1000mL at 999 Univ ers (NS) IV 8-12 mL/hr, IV ity of infusion 00:30: Infusion, [place] 1,000 mL 00 CONTINUOUS Medic al , Starting Branch on Sat10/05/22 at 1930, Until Discontinu ed, Routine ferrous 0 Yes Take by Univers sulfate 8-11 mouth. ity of (IRON ORAL) 21:43: [address] ferrous 2022-0 Yes Take by Univers sulfate 7-30 mouth. ity of (IRON ORAL) 02:01: [address] ferrous 2022-0 Yes Take by Univers sulfate 7-30 mouth. ity of (IRON ORAL) 02:01: [address] ferrous 2022-0 Yes Take by Univers sulfate 7-30 mouth. ity of (IRON ORAL) 02:01: [address] ferrous 2022-0 Yes Take by Univers sulfate 7-30 mouth. ity of (IRON ORAL) 02:01: [address] ferrous 2022-0 Yes Take by Univers sulfate 7-30 mouth. ity of (IRON ORAL) 02:01: [address] ferrous 2022-0 Yes Take by Univers sulfate 7-30 mouth. ity of (IRON ORAL) 02:01: [address] ferrous 2022-0 Yes Take by Univers sulfate 7-24 mouth. ity of (IRON ORAL) 17:46: [address] ferrous 2022-0 Yes Take by Univers sulfate 7-24 mouth. ity of (IRON ORAL) 17:46: [address] ferrous 2022-0 Yes Take by Univers sulfate 7-18 mouth. ity of (IRON ORAL) 11:30: [address] ferrous 3-0 Yes Take by Univers sulfate 7-18 mouth. ity of (IRON ORAL) 11:30: [address] ferrous 3-0 Yes Take by Univers sulfate 7-18 mouth. ity of (IRON ORAL) 11:30: [address] ferrous 2022-0 Yes Take by Univers sulfate 7-18 mouth. ity of (IRON ORAL) 11:30: [place] [address] Medical Branch ferrous 2023-0 Yes Take by [facility] sulfate 7-18 mouth. ity of (IRON ORAL) 11:30: [place] [address] Medical Branch ferrous 2023-0 Yes Take by [facility] sulfate 7-18 mouth. ity of (IRON ORAL) 11:30: [place] [address] Medical Branch ferrous 2023-0 Yes Take by [facility] sulfate 7-18 mouth. ity of (IRON ORAL) 11:30: [place] [address] Medical Branch ferrous 2023-0 Yes Take by [facility] sulfate 7-18 mouth. ity of (IRON ORAL) 11:30: [place] [address] Medical Branch ferrous 2023-0 Yes Take by [facility] sulfate 7-18 mouth. ity of (IRON ORAL) 11:30: [place] [address] Medical Branch ferrous 2023-0 Yes Take by [facility] sulfate 7-09 mouth. ity of (IRON ORAL) 05:05: [place] [address] Medical Branch ferrous 2023-0 Yes Take by [facility] sulfate 7-02 mouth. ity of (IRON ORAL) 07:04: [place] [address] Medical Branch metFORMIN 2023-0 Yes [id number] 1000mg Take 1 [facility] 1,000 mg 6-15 tablet by ity of tablet 00:00: mouth at [place] [address] bedtime. Medical Branch metFORMIN 2023-0 Yes [id number] 1000mg Take 1 [facility] 1,000 mg 6-15 tablet by ity of tablet 00:00: mouth at [place] [address] bedtime. Medical Branch metFORMIN 2023-0 Yes [id number] 1000mg Take 1 [facility] 1,000 mg 6-15 tablet by ity of tablet 00:00: mouth at [place] [address] bedtime. Medical Branch metFORMIN 2023-0 Yes [id number] 1000mg Take 1 [facility] 1,000 mg 6-15 tablet by ity of tablet 00:00: mouth at [place] [address] bedtime. Medical Branch metFORMIN 2023-0 Yes [id number] 1000mg Take 1 [facility] 1,000 mg 6-15 tablet by ity of tablet 00:00: mouth at [place] [address] bedtime. Medical Branch metFORMIN 2023-0 Yes [id number] 1000mg Take 1 [facility] 1,000 mg 6-15 tablet by ity of tablet 00:00: mouth at [place] [address] bedtime. Medical Branch metFORMIN 2023-0 Yes [id number] 1000mg Take 1 [facility] 1,000 mg 6-15 tablet by ity of tablet 00:00: mouth at [place] [address] bedtime. Medical Branch metFORMIN 2023-0 Yes [id number] 1000mg Take 1 [facility] 1,000 mg 6-15 tablet by ity of tablet 00:00: mouth at [place] [address] bedtime. Medical Branch metFORMIN 2023-0 Yes [id number] 1000mg Take 1 [facility] 1,000 mg 6-15 tablet by ity of tablet 00:00: mouth at [place] [address] bedtime. Medical Branch metFORMIN 2023-0 Yes [id number] 1000mg Take 1 [facility] 1,000 mg 6-15 tablet by ity of tablet 00:00: mouth at [place] [address] bedtime. Medical Branch metFORMIN 2023-0 Yes [id number] 1000mg Take 1 [facility] 1,000 mg 6-15 tablet by ity of tablet 00:00: mouth at [place] [address] bedtime. Medical Branch metFORMIN 2023-0 Yes [id number] 1000mg Take 1 [facility] 1,000 mg 6-15 tablet by ity of tablet 00:00: mouth at [place] [address] bedtime. Medical Branch metFORMIN 2023-0 Yes [id number] 1000mg Take 1 [facility] 1,000 mg 6-15 tablet by ity of tablet 00:00: mouth at [place] [address] bedtime. Medical Branch metFORMIN 2023-0 Yes [id number] 1000mg Take 1 [facility] 1,000 mg 6-15 tablet by ity of tablet 00:00: mouth at [place] [address] bedtime. Medical Branch metFORMIN 2023-0 Yes [id number] 1000mg Take 1 [facility] 1,000 mg 6-15 tablet by ity of tablet 00:00: mouth at [place] [address] bedtime. Medical Branch metFORMIN 2023-0 Yes [id number] 1000mg Take 1 [facility] 1,000 mg 6-15 tablet by ity of tablet 00:00: mouth at [place] [address] bedtime. Medical Branch metFORMIN 2023-0 Yes [id number] 1000mg Take 1 [facility] 1,000 mg 6-15 tablet by ity of tablet 00:00: mouth at [place] [address] bedtime. Medical Branch metFORMIN 2023-0 Yes [id number] 1000mg Take 1 [facility] 1,000 mg 6-15 tablet by ity of tablet 00:00: mouth at [place] [address] bedtime. Medical Branch metFORMIN 2023-0 Yes [id number] 1000mg Take 1 [facility] 1,000 mg 6-15 tablet by ity of tablet 00:00: mouth at [place] [address] bedtime. Medical Branch metFORMIN 2023-0 Yes [id number] 1000mg Take 1 [facility] 1,000 mg 6-15 tablet by ity of tablet 00:00: mouth at [place] 00 bedtime. Medical Branch metFORMIN 2023-0 Yes [id number] 1000mg Take 1 [facility] 1,000 mg 6-15 tablet by ity of tablet 00:00: mouth at [place] 00 bedtime. Medical Branch metFORMIN 2023-0 Yes [id number] 1000mg Take 1 [facility] 1,000 mg 6-15 tablet by ity of tablet 00:00: mouth at [place] 00 bedtime. Medical Branch metFORMIN 2023-0 Yes [id number] 1000mg Take 1 [facility] 1,000 mg 6-15 tablet by ity of tablet 00:00: mouth at [place] 00 bedtime. Medical Branch metFORMIN 2023-0 Yes [id number] 1000mg Take 1 [facility] 1,000 mg 6-15 tablet by ity of tablet 00:00: mouth at [place] [address] bedtime. Medical Branch metFORMIN 2023-0 Yes [id number] 1000mg Take 1 [facility] 1,000 mg 6-15 tablet by ity of tablet 00:00: mouth at [place] 00 bedtime. Medical Branch metFORMIN 2023-0 2023- No [id number] 1000mg Take 1 [facility] 1,000 mg 6-15 08-15 tablet by ity o f tablet 00:00: 00:00 mouth at [place] 00 :00 bedtime. Medical Branch metFORMIN 2023-0 2023- No [id number] 1000mg Take 1 [facility] 1,000 mg 6-15 08-15 tablet by ity o f tablet 00:00: 00:00 mouth at [place] 00 :00 bedtime. Medical Branch ferrous 2023-0 Yes Take by [facility] sulfate 6-12 mouth. ity of (IRON ORAL) 10:13: [place] [address] Medical Branch ferrous 2023-0 Yes Take by [facility] sulfate 6-12 mouth. ity of (IRON ORAL) 10:13: [address] Branch ferrous 2023-0 Yes Take by [facility] sulfate 6-12 mouth. ity of (IRON ORAL) 10:13: [address] Branch ferrous 2023-0 Yes Take by [facility] sulfate 6-12 mouth. ity of (IRON ORAL) 10:13: [address] ferrous 2023-0 Yes Take by [facility] sulfate 6-12 mouth. ity of (IRON ORAL) 10:13: [address] Branch ferrous 2023-0 Yes Take by [facility] sulfate 6-12 mouth. ity of (IRON ORAL) 10:13: [place] 29 [facility] Branch meclizine 2022-0 2023- No 25mg 25 mg, Unive rs (TRAVEL-EAS 07-17 Oral, ity of E 20:00: 19:53 ONCE, 1 [place] (MECLIZINE) 00 :00 dose, On Medi silver ) tablet 25 Tue Branch mg 07/17/22 at 1500, JOSI Blood-Gluco 2022-0 Yes Check Unive rs se Meter 5-17 blood ity of (BLOOD 00:00: sugar 4 [place] GLUCOSE 00 times Medical MONITORING) daily as Bran ch Kit directed. Brand per Insurance. ferrous 2022-0 Yes [id number] 325mg Take 1 [facility] vers sulfate 5-17 tablet by ity of (IRON, 00:00: mouth in [place] FERROUS 00 the Medical SULFATE,) morning. Branch 325 mg (65 mg iron) tablet ascorbic 2022-0 Yes [id number] 500mg Take 1 Un ita acid, 5-17 tablet by ity of vitamin C, 00:00: mouth in [place] 500 mg 00 the Medical tablet morning. Branch aspirin 81 2022-0 Yes [id number] 81mg Take 1 U nivers mg EC 5-17 tablet by ity of tablet 00:00: mouth in [place] 00 the Medical morning. Branch Alcohol 2022-0 Yes Apply to Univer s Swabs PadM 5-17 area 4 ity of 00:00: times a [place] 00 day to Medical check Branch blood sugar as directed. Blood Sugar 2022-0 Yes Check Un[facility] rs Diagnostic, 5-17 blood ity of Disc Strp 00:00: sugar 4 [place] 00 times a Medical day as Branch directed. Lancets 2022-0 Yes Check [facility] Misc 5-17 blood ity of 00:00: sugars 4 [place] 00 times a Medical day as Branch directed. Blood-Gluco 2022-0 Yes Check Unive rs se Meter 5-17 blood ity of (BLOOD 00:00: sugar 4 [place] GLUCOSE 00 times Medical MONITORING) daily as Bran ch Kit directed. Brand per Insurance. ferrous 2022-0 Yes [id number] 325mg Take 1 [facility] vers sulfate 5-17 tablet by ity of (IRON, 00:00: mouth in [place] FERROUS 00 the Medical SULFATE,) morning. Branch 325 mg (65 mg iron) tablet ascorbic 2022-0 Yes [id number] 500mg Take 1 Un ita acid, 5-17 tablet by ity of vitamin C, 00:00: mouth in [place] 500 mg 00 the Medical tablet morning. Branch aspirin 81 2022-0 Yes [id number] 81mg Take 1 U nivers mg EC 5-17 tablet by ity of tablet 00:00: mouth in [place] 00 the Medical morning. Branch [facility] 2022-[facility] area 4 ity of 00:00: times a [place] 00 day to Medical check Branch blood sugar as directed. Blood Sugar 0 Yes Check Unive rs Diagnostic, 5-17 blood ity of Disc Strp 00:00: sugar 4 [place] 00 times a Medical day as Branch directed. Lancets 2022-0 Yes Check [facility] Misc 5-17 blood ity of 00:00: sugars 4 [place] 00 times a Medical day as Branch directed. Blood-Gluco 0 Yes Check Unive rs se Meter 5-17 blood ity of (BLOOD 00:00: sugar 4 [place] GLUCOSE 00 times Medical MONITORING) daily as Bran ch Kit directed. Brand per Insurance. ferrous 2022-0 Yes [id number] 325mg Take 1 [facility] vers sulfate 5-17 tablet by ity of (IRON, 00:00: mouth in [place] FERROUS 00 the Medical SULFATE,) morning. Branch 325 mg (65 mg iron) tablet ascorbic 2022-0 Yes [id number] 500mg Take 1 Un ita acid, 5-17 tablet by ity of vitamin C, 00:00: mouth in [place] 500 mg 00 the Medical tablet morning. Branch aspirin 81 2022-0 Yes [id number] 81mg Take 1 U nivers mg EC 5-17 tablet by ity of tablet 00:00: mouth in [place] 00 the Medical morning. Branch Alcohol 2022-0 Yes Apply to [facility] s Swabs PadM 5-17 area 4 ity of 00:00: times a [place] 00 day to Medical check Branch blood sugar as directed. Blood Sugar 0 Yes Check [facility] rs Diagnostic, 5-17 blood ity of Disc Strp 00:00: sugar 4 [place] 00 times a Medical day as Branch directed. Lancets 2022-0 Yes Check [facility] Misc 5-17 blood ity of 00:00: sugars 4 [place] 00 times a Medical day as Branch directed. Blood-Gluco 2022-0 Yes Check Unive rs se Meter 5-17 blood ity of (BLOOD 00:00: sugar 4 [place] GLUCOSE 00 times Medical MONITORING) daily as Bran ch Kit directed. Brand per Insurance. ferrous 2022-0 Yes [id number] 325mg Take 1 [facility] vers sulfate 5-17 tablet by ity of (IRON, 00:00: mouth in [place] FERROUS 00 the Medical SULFATE,) morning. Branch 325 mg (65 mg iron) tablet ascorbic 2022-0 Yes [id number] 500mg Take 1 Un ita acid, 5-17 tablet by ity of vitamin C, 00:00: mouth in [place] 500 mg 00 the Medical tablet morning. Branch aspirin 81 2022-0 Yes [id number] 81mg Take 1 U nivers mg EC 5-17 tablet by ity of tablet 00:00: mouth in [place] 00 the Medical morning. Branch Alcohol 2022-0 Yes Apply to [employer] [facility] Swabs PadM 5-17 area 4 ity of 00:00: times a [place] 00 day to Medical check Branch blood sugar as directed. Blood Sugar 0 Yes Check Un[facility] rs Diagnostic, 5-17 blood ity of Disc Strp 00:00: sugar 4 [place] 00 times a Medical day as Branch directed. Lancets 2022-0 Yes Check [facility] Misc 5-17 blood ity of 00:00: sugars 4 [place] 00 times a Medical day as Branch directed. Blood-Gluco 0 Yes Check Unive rs se Meter 5-17 blood ity of (BLOOD 00:00: sugar 4 [place] GLUCOSE 00 times Medical MONITORING) daily as Bran ch Kit directed. Brand per Insurance. ferrous 2022-0 Yes [id number] 325mg Take 1 [facility] vers sulfate 5-17 tablet by ity of (IRON, 00:00: mouth in [place] FERROUS 00 the Medical SULFATE,) morning. Branch 325 mg (65 mg iron) tablet ascorbic 2022-0 Yes [id number] 500mg Take 1 Un ita acid, 5-17 tablet by ity of vitamin C, 00:00: mouth in [place] 500 mg 00 the Medical tablet morning. Branch aspirin 81 2022-0 Yes [id number] 81mg Take 1 U nivers mg EC 5-17 tablet by ity of tablet 00:00: mouth in [place] 00 the Medical morning. Branch Alcohol 2022-0 Yes Apply to [facility] s Swabs PadM 5-17 area 4 ity of 00:00: times a [place] 00 day to Medical check Branch blood sugar as directed. Blood Sugar 2022-0 Yes Check Unive rs Diagnostic, 5-17 blood ity of Disc Strp 00:00: sugar 4 [place] 00 times a Medical day as Branch directed. Lancets 0 Yes Check [facility] Misc 5-17 blood ity of 00:00: sugars 4 [place] 00 times a Medical day as Branch directed. Blood-Gluco 2022-0 Yes Check Unive rs se Meter 5-17 blood ity of (BLOOD 00:00: sugar 4 [place] GLUCOSE 00 times Medical MONITORING) daily as Bran ch Kit directed. Brand per Insurance. ferrous 2022-0 Yes [id number] 325mg Take 1 Uni vers sulfate 5-17 tablet by ity of (IRON, 00:00: mouth in [place] FERROUS 00 the Medical SULFATE,) morning. Branch 325 mg (65 mg iron) tablet ascorbic 2022-0 Yes [id number] 500mg Take 1 Un ita acid, 5-17 tablet by ity of vitamin C, 00:00: mouth in [place] 500 mg 00 the Medical tablet morning. Branch aspirin 81 2022-0 Yes [id number] 81mg Take 1 U nivers mg EC 5-17 tablet by ity of tablet 00:00: mouth in [place] 00 the Medical morning. Branch Alcohol 0 [facility] area 4 ity of 00:00: times a [place] 00 day to Medical check Branch blood sugar as directed. Blood Sugar 2022-0 Yes Check Unive rs Diagnostic, 5-17 blood ity of Disc Strp 00:00: sugar 4 [place] 00 times a Medical day as Branch directed. Lancets 2022-0 Yes Check [facility] Misc 5-17 blood ity of 00:00: sugars 4 [place] 00 times a Medical day as Branch directed. Blood-Gluco 2022-0 Yes Check Unive rs se Meter 5-17 blood ity of (BLOOD 00:00: sugar 4 [place] GLUCOSE 00 times Medical MONITORING) daily as Bran ch Kit directed. Brand per Insurance. ferrous 3-0 Yes [id number] 325mg Take 1 [facility] vers sulfate 5-17 tablet by ity of (IRON, 00:00: mouth in [place] FERROUS 00 the Medical SULFATE,) morning. Branch 325 mg (65 mg iron) tablet ascorbic 3-0 Yes [id number] 500mg Take 1 Un ita acid, 5-17 tablet by ity of vitamin C, 00:00: mouth in [place] 500 mg 00 the Medical tablet morning. Branch aspirin 81 2022-0 Yes [id number] 81mg Take 1 U nivers mg EC 5-17 tablet by ity of tablet 00:00: mouth in [place] 00 the Medical morning. Branch Alcohol 2022-0 [facility] area 4 ity of 00:00: times a [place] 00 day to Medical check Branch blood sugar as directed. Blood Sugar 0 Yes Check Unive rs Diagnostic, 5-17 blood ity of Disc Strp 00:00: sugar 4 [place] 00 times a Medical day as Branch directed. Lancets 2022-0 Yes Check [facility] Misc 5-17 blood ity of 00:00: sugars 4 [place] 00 times a Medical day as Branch directed. Blood-Gluco 0 Yes Check Unive rs se Meter 5-17 blood ity of (BLOOD 00:00: sugar 4 [place] GLUCOSE 00 times Medical MONITORING) daily as Bran ch Kit directed. Brand per Insurance. ferrous 2022-0 Yes [id number] 325mg Take 1 Uni vers sulfate 5-17 tablet by ity of (IRON, 00:00: mouth in [place] FERROUS 00 the Medical SULFATE,) morning. Branch 325 mg (65 mg iron) tablet ascorbic 2022-0 Yes [id number] 500mg Take 1 Un ita acid, 5-17 tablet by ity of vitamin C, 00:00: mouth in [place] 500 mg 00 the Medical tablet morning. Branch aspirin 81 2022-0 Yes [id number] 81mg Take 1 U nivers mg EC 5-17 tablet by ity of tablet 00:00: mouth in [place] 00 the Medical morning. Branch Alcohol 2022-0 Yes Apply to Univer s Swabs PadM 5-17 area 4 ity of 00:00: times a [place] 00 day to Medical check Branch blood sugar as directed. Blood Sugar 0 Yes Check Un[facility] rs Diagnostic, 5-17 blood ity of Disc Strp 00:00: sugar 4 [place] 00 times a Medical day as Branch directed. Lancets 2022-0 Yes Check [facility] Misc 5-17 blood ity of 00:00: sugars 4 [place] 00 times a Medical day as Branch directed. Blood-Gluco 2022-0 Yes Check Unive rs se Meter 5-17 blood ity of (BLOOD 00:00: sugar 4 [place] GLUCOSE 00 times Medical MONITORING) daily as Bran ch Kit directed. Brand per Insurance. ferrous 2022-0 Yes [id number] 325mg Take 1 Uni vers sulfate 5-17 tablet by ity of (IRON, 00:00: mouth in [place] FERROUS 00 the Medical SULFATE,) morning. Branch 325 mg (65 mg iron) tablet ascorbic 2022-0 Yes [id number] 500mg Take 1 Un ita acid, 5-17 tablet by ity of vitamin C, 00:00: mouth in [place] 500 mg 00 the Medical tablet morning. Branch aspirin 81 2022-0 Yes [id number] 81mg Take 1 U nivers mg EC 5-17 tablet by ity of tablet 00:00: mouth in [place] 00 the Medical morning. Branch Alcohol 2022-0 Yes Apply to [employer] [facility] Swabs PadM 5-17 area 4 ity of 00:00: times a [place] 00 day to Medical check Branch blood sugar as directed. Blood Sugar 0 Yes Check Unive rs Diagnostic, 5-17 blood ity of Disc Strp 00:00: sugar 4 [place] 00 times a Medical day as Branch directed. Lancets 2022-0 Yes Check [facility] Misc 5-17 blood ity of 00:00: sugars 4 [place] 00 times a Medical day as Branch directed. Blood-Gluco 0 Yes Check Unive rs se Meter 5-17 blood ity of (BLOOD 00:00: sugar 4 [place] GLUCOSE 00 times Medical MONITORING) daily as Bran ch Kit directed. Brand per Insurance. ferrous 2022-0 Yes [id number] 325mg Take 1 Uni vers sulfate 5-17 tablet by ity of (IRON, 00:00: mouth in [place] FERROUS 00 the Medical SULFATE,) morning. Branch 325 mg (65 mg iron) tablet ascorbic 2022-0 Yes [id number] 500mg Take 1 Un ita acid, 5-17 tablet by ity of vitamin C, 00:00: mouth in [place] 500 mg 00 the Medical tablet morning. Branch aspirin 81 2022-0 Yes [id number] 81mg Take 1 U nivers mg EC 5-17 tablet by ity of tablet 00:00: mouth in [place] 00 the Medical morning. Branch Alcohol 2022-0 Yes Apply to [facility] s Swabs PadM 5-17 area 4 ity of 00:00: times a [place] 00 day to Medical check Branch blood sugar as directed. Blood Sugar 2022-0 Yes Check Unive rs Diagnostic, 5-17 blood ity of Disc Strp 00:00: sugar 4 [place] 00 times a Medical day as Branch directed. Lancets 0 Yes Check [facility] Misc 5-17 blood ity of 00:00: sugars 4 [place] 00 times a Medical day as Branch directed. Blood-Gluco 2022-0 Yes Check Unive rs se Meter 5-17 blood ity of (BLOOD 00:00: sugar 4 [place] GLUCOSE 00 times Medical MONITORING) daily as Bran ch Kit directed. Brand per Insurance. ferrous 2022-0 Yes [id number] 325mg Take 1 Uni vers sulfate 5-17 tablet by ity of (IRON, 00:00: mouth in [place] FERROUS 00 the Medical SULFATE,) morning. Branch 325 mg (65 mg iron) tablet ascorbic 2022-0 Yes [id number] 500mg Take 1 Un ita acid, 5-17 tablet by ity of vitamin C, 00:00: mouth in [place] 500 mg 00 the Medical tablet morning. Branch aspirin 81 2022-0 Yes [id number] 81mg Take 1 U nivers mg EC 5-17 tablet by ity of tablet 00:00: mouth in [place] 00 the Medical morning. Branch Alcohol 0 [facility] area 4 ity of 00:00: times a [place] 00 day to Medical check Branch blood sugar as directed. Blood Sugar 2022-0 Yes Check Unive rs Diagnostic, 5-17 blood ity of Disc Strp 00:00: sugar 4 [place] 00 times a Medical day as Branch directed. Lancets 2022-0 Yes Check [facility] Misc 5-17 blood ity of 00:00: sugars 4 [place] 00 times a Medical day as Branch directed. Blood-Gluco 2022-0 Yes Check Unive rs se Meter 5-17 blood ity of (BLOOD 00:00: sugar 4 [place] GLUCOSE 00 times Medical MONITORING) daily as Bran ch Kit directed. Brand per Insurance. ferrous 3-0 Yes [id number] 325mg Take 1 Uni vers sulfate 5-17 tablet by ity of (IRON, 00:00: mouth in [place] FERROUS 00 the Medical SULFATE,) morning. Branch 325 mg (65 mg iron) tablet ascorbic 3-0 Yes [id number] 500mg Take 1 Un ita acid, 5-17 tablet by ity of vitamin C, 00:00: mouth in [place] 500 mg 00 the Medical tablet morning. Branch aspirin 81 2022-0 Yes [id number] 81mg Take 1 U nivers mg EC 5-17 tablet by ity of tablet 00:00: mouth in [place] 00 the Medical morning. Branch Alcohol 2022-0 [facility] area 4 ity of 00:00: times a [place] 00 day to Medical check Branch blood sugar as directed. Blood Sugar 0 Yes Check Unive rs Diagnostic, 5-17 blood ity of Disc Strp 00:00: sugar 4 [place] 00 times a Medical day as Branch directed. Lancets 2022-0 Yes Check [facility] Misc 5-17 blood ity of 00:00: sugars 4 [place] 00 times a Medical day as Branch directed. Blood-Gluco 0 Yes Check Unive rs se Meter 5-17 blood ity of (BLOOD 00:00: sugar 4 [place] GLUCOSE 00 times Medical MONITORING) daily as Bran ch Kit directed. Brand per Insurance. ferrous 2022-0 Yes [id number] 325mg Take 1 Uni vers sulfate 5-17 tablet by ity of (IRON, 00:00: mouth in [place] FERROUS 00 the Medical SULFATE,) morning. Branch 325 mg (65 mg iron) tablet ascorbic 2022-0 Yes [id number] 500mg Take 1 Un ita acid, 5-17 tablet by ity of vitamin C, 00:00: mouth in [place] 500 mg 00 the Medical tablet morning. Branch aspirin 81 2022-0 Yes [id number] 81mg Take 1 U nivers mg EC 5-17 tablet by ity of tablet 00:00: mouth in [place] 00 the Medical morning. Branch Alcohol 2022-0 Yes Apply to [facility]iver s Swabs PadM 5-17 area 4 ity of 00:00: times a [place] 00 day to Medical check Branch blood sugar as directed. Blood Sugar 0 Yes Check Unive rs Diagnostic, 5-17 blood ity of Disc Strp 00:00: sugar 4 [place] 00 times a Medical day as Branch directed. Lancets 2022-0 Yes Check Univers Misc 5-17 blood ity of 00:00: sugars 4 [place] 00 times a Medical day as Branch directed. Blood-Gluco 2022-0 Yes Check Unive rs se Meter 5-17 blood ity of (BLOOD 00:00: sugar 4 [place] GLUCOSE 00 times Medical MONITORING) daily as Bran ch Kit directed. Brand per Insurance. ferrous 2022-0 Yes [id number] 325mg Take 1 Uni vers sulfate 5-17 tablet by ity of (IRON, 00:00: mouth in [place] FERROUS 00 the Medical SULFATE,) morning. Branch 325 mg (65 mg iron) tablet ascorbic 2022-0 Yes [id number] 500mg Take 1 Un ita acid, 5-17 tablet by ity of vitamin C, 00:00: mouth in [place] 500 mg 00 the Medical tablet morning. Branch aspirin 81 2022-0 Yes [id number] 81mg Take 1 U nivers mg EC 5-17 tablet by ity of tablet 00:00: mouth in [place] 00 the Medical morning. Branch Alcohol 2022-0 Yes Apply to [employer] [facility] Swabs PadM 5-17 area 4 ity of 00:00: times a [place] 00 day to Medical check Branch blood sugar as directed. Blood Sugar 0 Yes Check Unive rs Diagnostic, 5-17 blood ity of Disc Strp 00:00: sugar 4 [place] 00 times a Medical day as Branch directed. Lancets 2022-0 Yes Check [facility] Misc 5-17 blood ity of 00:00: sugars 4 [place] 00 times a Medical day as Branch directed. Blood-Gluco 0 Yes Check Unive rs se Meter 5-17 blood ity of (BLOOD 00:00: sugar 4 [place] GLUCOSE 00 times Medical MONITORING) daily as Bran ch Kit directed. Brand per Insurance. ferrous 2022-0 Yes [id number] 325mg Take 1 Uni vers sulfate 5-17 tablet by ity of (IRON, 00:00: mouth in [place] FERROUS 00 the Medical SULFATE,) morning. Branch 325 mg (65 mg iron) tablet ascorbic 2022-0 Yes [id number] 500mg Take 1 Un ita acid, 5-17 tablet by ity of vitamin C, 00:00: mouth in [place] 500 mg 00 the Medical tablet morning. Branch aspirin 81 2022-0 Yes [id number] 81mg Take 1 U nivers mg EC 5-17 tablet by ity of tablet 00:00: mouth in [place] 00 the Medical morning. Branch Alcohol 2022-0 Yes Apply to [facility] s Swabs PadM 5-17 area 4 ity of 00:00: times a [place] 00 day to Medical check Branch blood sugar as directed. Blood Sugar 2022-0 Yes Check Unive rs Diagnostic, 5-17 blood ity of Disc Strp 00:00: sugar 4 [place] 00 times a Medical day as Branch directed. Lancets 0 Yes Check [facility] Misc 5-17 blood ity of 00:00: sugars 4 [place] 00 times a Medical day as Branch directed. Blood-Gluco 2022-0 Yes Check Unive rs se Meter 5-17 blood ity of (BLOOD 00:00: sugar 4 [place] GLUCOSE 00 times Medical MONITORING) daily as Bran ch Kit directed. Brand per Insurance. ferrous 2022-0 Yes [id number] 325mg Take 1 Uni vers sulfate 5-17 tablet by ity of (IRON, 00:00: mouth in [place] FERROUS 00 the Medical SULFATE,) morning. Branch 325 mg (65 mg iron) tablet ascorbic 2022-0 Yes [id number] 500mg Take 1 Un ita acid, 5-17 tablet by ity of vitamin C, 00:00: mouth in [place] 500 mg 00 the Medical tablet morning. Branch aspirin 81 2022-0 Yes [id number] 81mg Take 1 U nivers mg EC 5-17 tablet by ity of tablet 00:00: mouth in [place] 00 the Medical morning. Branch Alcohol 0 [facility] area 4 ity of 00:00: times a [place] 00 day to Medical check Branch blood sugar as directed. Blood Sugar 2022-0 Yes Check Unive rs Diagnostic, 5-17 blood ity of Disc Strp 00:00: sugar 4 [place] 00 times a Medical day as Branch directed. Lancets 2022-0 Yes Check [facility] Misc 5-17 blood ity of 00:00: sugars 4 [place] 00 times a Medical day as Branch directed. Blood-Gluco 2022-0 Yes Check Unive rs se Meter 5-17 blood ity of (BLOOD 00:00: sugar 4 [place] GLUCOSE 00 times Medical MONITORING) daily as Bran ch Kit directed. Brand per Insurance. ferrous 3-0 Yes [id number] 325mg Take 1 Uni vers sulfate 5-17 tablet by ity of (IRON, 00:00: mouth in [place] FERROUS 00 the Medical SULFATE,) morning. Branch 325 mg (65 mg iron) tablet ascorbic 3-0 Yes [id number] 500mg Take 1 Un ita acid, 5-17 tablet by ity of vitamin C, 00:00: mouth in [place] 500 mg 00 the Medical tablet morning. Branch aspirin 81 2022-0 Yes [id number] 81mg Take 1 U nivers mg EC 5-17 tablet by ity of tablet 00:00: mouth in [place] 00 the Medical morning. Branch Alcohol 2022-0 Yes [facility]17 area 4 ity of 00:00: times a [place] 00 day to Medical check Branch blood sugar as directed. Blood Sugar 0 Yes Check Unive rs Diagnostic, 5-17 blood ity of Disc Strp 00:00: sugar 4 [place] 00 times a Medical day as Branch directed. Lancets 2022-0 Yes Check Univers Misc 5-17 blood ity of 00:00: sugars 4 [place] 00 times a Medical day as Branch directed. Blood-Gluco 0 Yes Check Unive rs se Meter 5-17 blood ity of (BLOOD 00:00: sugar 4 [place] GLUCOSE 00 times Medical MONITORING) daily as Bran ch Kit directed. Brand per Insurance. ferrous 2022-0 Yes [id number] 325mg Take 1 Uni vers sulfate 5-17 tablet by ity of (IRON, 00:00: mouth in [place] FERROUS 00 the Medical SULFATE,) morning. Branch 325 mg (65 mg iron) tablet ascorbic 2022-0 Yes [id number] 500mg Take 1 Un ita acid, 5-17 tablet by ity of vitamin C, 00:00: mouth in [place] as 500 mg 00 the Medical tablet morning. Branch aspirin 81 2022-0 Yes [id number] 81mg Take 1 U nivers mg EC 5-17 tablet by ity of tablet 00:00: mouth in [place] 00 the Medical morning. Branch Alcohol 2022-0 Yes Apply to [facility] s Swabs PadM 5-17 area 4 ity of 00:00: times a [place] 00 day to Medical check Branch blood sugar as directed. Blood Sugar 0 Yes Check Unive rs Diagnostic, 5-17 blood ity of Disc Strp 00:00: sugar 4 [place] 00 times a Medical day as Branch directed. Lancets 2022-0 Yes Check [facility] Misc 5-17 blood ity of 00:00: sugars 4 [place] 00 times a Medical day as Branch directed. Blood-Gluco 2022-0 Yes Check Unive rs se Meter 5-17 blood ity of (BLOOD 00:00: sugar 4 [place] GLUCOSE 00 times Medical MONITORING) daily as Bran ch Kit directed. Brand per Insurance. ferrous 2022-0 Yes [id number] 325mg Take 1 Uni vers sulfate 5-17 tablet by ity of (IRON, 00:00: mouth in [place] FERROUS 00 the Medical SULFATE,) morning. Branch 325 mg (65 mg iron) tablet ascorbic 2022-0 Yes [id number] 500mg Take 1 Un ita acid, 5-17 tablet by ity of vitamin C, 00:00: mouth in [place] 500 mg 00 the Medical tablet morning. Branch aspirin 81 2022-0 Yes [id number] 81mg Take 1 U nivers mg EC 5-17 tablet by ity of tablet 00:00: mouth in [place] 00 the Medical morning. Branch Alcohol 2022-0 Yes Apply to [employer] [facility] Swabs PadM 5-17 area 4 ity of 00:00: times a [place] 00 day to Medical check Branch blood sugar as directed. Blood Sugar 0 Yes Check Unive rs Diagnostic, 5-17 blood ity of Disc Strp 00:00: sugar 4 [place] 00 times a Medical day as Branch directed. Lancets 2022-0 Yes Check [facility] Misc 5-17 blood ity of 00:00: sugars 4 [place] 00 times a Medical day as Branch directed. Blood-Gluco 0 Yes Check Unive rs se Meter 5-17 blood ity of (BLOOD 00:00: sugar 4 [place] GLUCOSE 00 times Medical MONITORING) daily as Bran ch Kit directed. Brand per Insurance. ferrous 2022-0 Yes [id number] 325mg Take 1 Uni vers sulfate 5-17 tablet by ity of (IRON, 00:00: mouth in [place] FERROUS 00 the Medical SULFATE,) morning. Branch 325 mg (65 mg iron) tablet ascorbic 2022-0 Yes [id number] 500mg Take 1 Un ita acid, 5-17 tablet by ity of vitamin C, 00:00: mouth in [place] 500 mg 00 the Medical tablet morning. Branch aspirin 81 2022-0 Yes [id number] 81mg Take 1 U nivers mg EC 5-17 tablet by ity of tablet 00:00: mouth in [place] 00 the Medical morning. Branch Alcohol 2022-0 Yes Apply to [facility] s Swabs PadM 5-17 area 4 ity of 00:00: times a [place] 00 day to Medical check Branch blood sugar as directed. Blood Sugar 2022-0 Yes Check Unive rs Diagnostic, 5-17 blood ity of Disc Strp 00:00: sugar 4 [place] 00 times a Medical day as Branch directed. Lancets 0 Yes Check [facility] Misc 5-17 blood ity of 00:00: sugars 4 [place] 00 times a Medical day as Branch directed. Blood-Gluco 2022-0 Yes Check Unive rs se Meter 5-17 blood ity of (BLOOD 00:00: sugar 4 [place] GLUCOSE 00 times Medical MONITORING) daily as Bran ch Kit directed. Brand per Insurance. ferrous 2022-0 Yes [id number] 325mg Take 1 Uni vers sulfate 5-17 tablet by ity of (IRON, 00:00: mouth in [place] FERROUS 00 the Medical SULFATE,) morning. Branch 325 mg (65 mg iron) tablet ascorbic 2022-0 Yes [id number] 500mg Take 1 Un ita acid, 5-17 tablet by ity of vitamin C, 00:00: mouth in [place] 500 mg 00 the Medical tablet morning. Branch aspirin 81 2022-0 Yes [id number] 81mg Take 1 U nivers mg EC 5-17 tablet by ity of tablet 00:00: mouth in [place] 00 the Medical morning. [facility] 4 ity of 00:00: times a [place] 00 day to Medical check Branch blood sugar as directed. Blood Sugar 2022-0 Yes Check Unive rs Diagnostic, 5-17 blood ity of Disc Strp 00:00: sugar 4 [place] 00 times a Medical day as Branch directed. Lancets 2022-0 Yes Check [facility] Misc 5-17 blood ity of 00:00: sugars 4 [place] 00 times a Medical day as Branch directed. Blood-Gluco 2022-0 Yes Check Unive rs se Meter 5-17 blood ity of (BLOOD 00:00: sugar 4 [place] GLUCOSE 00 times Medical MONITORING) daily as Bran ch Kit directed. Brand per Insurance. ferrous 3-0 Yes [id number] 325mg Take 1 Uni vers sulfate 5-17 tablet by ity of (IRON, 00:00: mouth in [place] FERROUS 00 the Medical SULFATE,) morning. Branch 325 mg (65 mg iron) tablet ascorbic 3-0 Yes [id number] 500mg Take 1 Un ita acid, 5-17 tablet by ity of vitamin C, 00:00: mouth in [place] 500 mg 00 the Medical tablet morning. Branch aspirin 81 2022-0 Yes [id number] 81mg Take 1 U nivers mg EC 5-17 tablet by ity of tablet 00:00: mouth in [place] 00 the Medical morning. Branch Alcohol 2022-0 [facility] area 4 ity of 00:00: times a [place] 00 day to Medical check Branch blood sugar as directed. Blood Sugar 0 Yes Check Unive rs Diagnostic, 5-17 blood ity of Disc Strp 00:00: sugar 4 [place] 00 times a Medical day as Branch directed. Lancets 2022-0 Yes Check [facility] Misc 5-17 blood ity of 00:00: sugars 4 [place] 00 times a Medical day as Branch directed. Blood-Gluco 0 Yes Check Unive rs se Meter 5-17 blood ity of (BLOOD 00:00: sugar 4 [place] GLUCOSE 00 times Medical MONITORING) daily as Bran ch Kit directed. Brand per Insurance. ferrous 2022-0 Yes [id number] 325mg Take 1 Uni vers sulfate 5-17 tablet by ity of (IRON, 00:00: mouth in [place] FERROUS 00 the Medical SULFATE,) morning. Branch 325 mg (65 mg iron) tablet ascorbic 2022-0 Yes [id number] 500mg Take 1 Un ita acid, 5-17 tablet by ity of vitamin C, 00:00: mouth in [place] 500 mg 00 the Medical tablet morning. Branch aspirin 81 2022-0 Yes [id number] 81mg Take 1 U nivers mg EC 5-17 tablet by ity of tablet 00:00: mouth in [place] 00 the Medical morning. Branch Alcohol 2022-0 Yes Apply to [facility] s Swabs PadM 5-17 area 4 ity of 00:00: times a [place] 00 day to Medical check Branch blood sugar as directed. Blood Sugar 0 Yes Check Un[facility] rs Diagnostic, 5-17 blood ity of Disc Strp 00:00: sugar 4 [place] 00 times a Medical day as Branch directed. Lancets 2022-0 Yes Check [facility] Misc 5-17 blood ity of 00:00: sugars 4 [place] 00 times a Medical day as Branch directed. Blood-Gluco 2022-0 Yes Check Unive rs se Meter 5-17 blood ity of (BLOOD 00:00: sugar 4 [place] GLUCOSE 00 times Medical MONITORING) daily as Bran ch Kit directed. Brand per Insurance. ferrous 2022-0 Yes [id number] 325mg Take 1 Uni vers sulfate 5-17 tablet by ity of (IRON, 00:00: mouth in [place] FERROUS 00 the Medical SULFATE,) morning. Branch 325 mg (65 mg iron) tablet ascorbic 2022-0 Yes [id number] 500mg Take 1 Un ita acid, 5-17 tablet by ity of vitamin C, 00:00: mouth in [place] 500 mg 00 the Medical tablet morning. Branch aspirin 81 2022-0 Yes [id number] 81mg Take 1 U nivers mg EC 5-17 tablet by ity of tablet 00:00: mouth in [place] 00 the Medical morning. Branch Alcohol 2022-0 Yes Apply to [employer] [facility] Swabs PadM 5-17 area 4 ity of 00:00: times a [place] 00 day to Medical check Branch blood sugar as directed. Blood Sugar 0 Yes Check Unive rs Diagnostic, 5-17 blood ity of Disc Strp 00:00: sugar 4 [place] 00 times a Medical day as Branch directed. Lancets 2022-0 Yes Check [facility] Misc 5-17 blood ity of 00:00: sugars 4 [place] 00 times a Medical day as Branch directed. Blood-Gluco 0 Yes Check Unive rs se Meter 5-17 blood ity of (BLOOD 00:00: sugar 4 [place] GLUCOSE 00 times Medical MONITORING) daily as Bran ch Kit directed. Brand per Insurance. ferrous 2022-0 Yes [id number] 325mg Take 1 Uni vers sulfate 5-17 tablet by ity of (IRON, 00:00: mouth in [place] FERROUS 00 the Medical SULFATE,) morning. Branch 325 mg (65 mg iron) tablet ascorbic 2022-0 Yes [id number] 500mg Take 1 Un ita acid, 5-17 tablet by ity of vitamin C, 00:00: mouth in [place] 500 mg 00 the Medical tablet morning. Branch aspirin 81 2022-0 Yes [id number] 81mg Take 1 U nivers mg EC 5-17 tablet by ity of tablet 00:00: mouth in [place] 00 the Medical morning. Branch Alcohol 2022-0 Yes Apply to [facility]iver s Swabs PadM 5-17 area 4 ity of 00:00: times a [place] 00 day to Medical check Branch blood sugar as directed. Blood Sugar 2022-0 Yes Check Unive rs Diagnostic, 5-17 blood ity of Disc Strp 00:00: sugar 4 [place] 00 times a Medical day as Branch directed. Lancets 0 Yes Check [facility] Misc 5-17 blood ity of 00:00: sugars 4 [place] 00 times a Medical day as Branch directed. Blood-Gluco 2022-0 Yes Check Unive rs se Meter 5-17 blood ity of (BLOOD 00:00: sugar 4 [place] GLUCOSE 00 times Medical MONITORING) daily as Bran ch Kit directed. Brand per Insurance. ferrous 2022-0 Yes [id number] 325mg Take 1 Uni vers sulfate 5-17 tablet by ity of (IRON, 00:00: mouth in [place] FERROUS 00 the Medical SULFATE,) morning. Branch 325 mg (65 mg iron) tablet ascorbic 2022-0 Yes [id number] 500mg Take 1 Un ita acid, 5-17 tablet by ity of vitamin C, 00:00: mouth in [place] 500 mg 00 the Medical tablet morning. Branch aspirin 81 2022-0 Yes [id number] 81mg Take 1 U nivers mg EC 5-17 tablet by ity of tablet 00:00: mouth in [place] 00 the Medical morning. Branch [facility] 0 [facility] area 4 ity of 00:00: times a [place] 00 day to Medical check Branch blood sugar as directed. Blood Sugar 2022-0 Yes Check Unive rs Diagnostic, 5-17 blood ity of Disc Strp 00:00: sugar 4 [place] 00 times a Medical day as Branch directed. Lancets 2022-0 Yes Check [facility] Misc 5-17 blood ity of 00:00: sugars 4 [place] 00 times a Medical day as Branch directed. Blood-Gluco 2022-0 Yes Check Unive rs se Meter 5-17 blood ity of (BLOOD 00:00: sugar 4 [place] GLUCOSE 00 times Medical MONITORING) daily as Bran ch Kit directed. Brand per Insurance. ferrous 3-0 Yes [id number] 325mg Take 1 Uni vers sulfate 5-17 tablet by ity of (IRON, 00:00: mouth in [place] FERROUS 00 the Medical SULFATE,) morning. Branch 325 mg (65 mg iron) tablet ascorbic 3-0 Yes [id number] 500mg Take 1 Un ita acid, 5-17 tablet by ity of vitamin C, 00:00: mouth in [place] 500 mg 00 the Medical tablet morning. Branch aspirin 81 2022-0 Yes [id number] 81mg Take 1 U nivers mg EC 5-17 tablet by ity of tablet 00:00: mouth in [place] 00 the Medical morning. Branch Alcohol 2022-0 Yes [facility] area 4 ity of 00:00: times a [place] 00 day to Medical check Branch blood sugar as directed. Blood Sugar 0 Yes Check Unive rs Diagnostic, 5-17 blood ity of Disc Strp 00:00: sugar 4 [place] 00 times a Medical day as Branch directed. Lancets 2022-0 Yes Check [facility] Misc 5-17 blood ity of 00:00: sugars 4 [place] 00 times a Medical day as Branch directed. Blood-Gluco 0 Yes Check Unive rs se Meter 5-17 blood ity of (BLOOD 00:00: sugar 4 [place] GLUCOSE 00 times Medical MONITORING) daily as Bran ch Kit directed. Brand per Insurance. ferrous 2022-0 Yes [id number] 325mg Take 1 Uni vers sulfate 5-17 tablet by ity of (IRON, 00:00: mouth in [place] FERROUS 00 the Medical SULFATE,) morning. Branch 325 mg (65 mg iron) tablet ascorbic 2022-0 Yes [id number] 500mg Take 1 Un ita acid, 5-17 tablet by ity of vitamin C, 00:00: mouth in [place] 500 mg 00 the Medical tablet morning. Branch aspirin 81 2022-0 Yes [id number] 81mg Take 1 U nivers mg EC 5-17 tablet by ity of tablet 00:00: mouth in [place] 00 the Medical morning. Branch Alcohol 2022-0 Yes Apply to [facility] s Swabs PadM 5-17 area 4 ity of 00:00: times a [place] 00 day to Medical check Branch blood sugar as directed. Blood Sugar 0 Yes Check Unive rs Diagnostic, 5-17 blood ity of Disc Strp 00:00: sugar 4 [place] 00 times a Medical day as Branch directed. Lancets 2022-0 Yes Check [facility] Misc 5-17 blood ity of 00:00: sugars 4 [place] 00 times a Medical day as Branch directed. Blood-Gluco 2022-0 Yes Check Unive rs se Meter 5-17 blood ity of (BLOOD 00:00: sugar 4 [place] GLUCOSE 00 times Medical MONITORING) daily as Bran ch Kit directed. Brand per Insurance. ferrous 2022-0 Yes [id number] 325mg Take 1 Uni vers sulfate 5-17 tablet by ity of (IRON, 00:00: mouth in [place] FERROUS 00 the Medical SULFATE,) morning. Branch 325 mg (65 mg iron) tablet ascorbic 2022-0 Yes [id number] 500mg Take 1 Un ita acid, 5-17 tablet by ity of vitamin C, 00:00: mouth in [place] 500 mg 00 the Medical tablet morning. Branch aspirin 81 2022-0 Yes [id number] 81mg Take 1 U nivers mg EC 5-17 tablet by ity of tablet 00:00: mouth in [place] 00 the Medical morning. Branch Alcohol 2022-0 Yes Apply to [employer] [facility] Swabs PadM 5-17 area 4 ity of 00:00: times a [place] 00 day to Medical check Branch blood sugar as directed. Blood Sugar 0 Yes Check Unive rs Diagnostic, 5-17 blood ity of Disc Strp 00:00: sugar 4 [place] 00 times a Medical day as Branch directed. Lancets 2022-0 Yes Check [facility] Misc 5-17 blood ity of 00:00: sugars 4 [place] 00 times a Medical day as Branch directed. Blood-Gluco 0 Yes Check Unive rs se Meter 5-17 blood ity of (BLOOD 00:00: sugar 4 [place] GLUCOSE 00 times Medical MONITORING) daily as Bran ch Kit directed. Brand per Insurance. ferrous 2022-0 Yes [id number] 325mg Take 1 Uni vers sulfate 5-17 tablet by ity of (IRON, 00:00: mouth in [place] FERROUS 00 the Medical SULFATE,) morning. Branch 325 mg (65 mg iron) tablet ascorbic 2022-0 Yes [id number] 500mg Take 1 Un ita acid, 5-17 tablet by ity of vitamin C, 00:00: mouth in [place] 500 mg 00 the Medical tablet morning. Branch aspirin 81 2022-0 Yes [id number] 81mg Take 1 U nivers mg EC 5-17 tablet by ity of tablet 00:00: mouth in [place] 00 the Medical morning. Branch Alcohol 2022-0 Yes Apply to [facility] s Swabs PadM 5-17 area 4 ity of 00:00: times a [place] 00 day to Medical check Branch blood sugar as directed. Blood Sugar 2022-0 Yes Check Unive rs Diagnostic, 5-17 blood ity of Disc Strp 00:00: sugar 4 [place] 00 times a Medical day as Branch directed. Lancets 0 Yes Check [facility] Misc 5-17 blood ity of 00:00: sugars 4 [place] 00 times a Medical day as Branch directed. Blood-Gluco 2022-0 Yes Check Unive rs se Meter 5-17 blood ity of (BLOOD 00:00: sugar 4 [place] GLUCOSE 00 times Medical MONITORING) daily as Bran ch Kit directed. Brand per Insurance. ferrous 2022-0 Yes [id number] 325mg Take 1 Uni vers sulfate 5-17 tablet by ity of (IRON, 00:00: mouth in [place] FERROUS 00 the Medical SULFATE,) morning. Branch 325 mg (65 mg iron) tablet ascorbic 2022-0 Yes [id number] 500mg Take 1 Un ita acid, 5-17 tablet by ity of vitamin C, 00:00: mouth in [place] 500 mg 00 the Medical tablet morning. Branch aspirin 81 2022-0 Yes [id number] 81mg Take 1 U nivers mg EC 5-17 tablet by ity of tablet 00:00: mouth in [place] 00 the Medical morning. Branch Alcohol 0 [facility] area 4 ity of 00:00: times a [place] 00 day to Medical check Branch blood sugar as directed. Blood Sugar 2022-0 Yes Check Unive rs Diagnostic, 5-17 blood ity of Disc Strp 00:00: sugar 4 [place] 00 times a Medical day as Branch directed. Lancets 2022-0 Yes Check [facility] Misc 5-17 blood ity of 00:00: sugars 4 [place] 00 times a Medical day as Branch directed. Blood-Gluco 2022-0 Yes Check Unive rs se Meter 5-17 blood ity of (BLOOD 00:00: sugar 4 [place] GLUCOSE 00 times Medical MONITORING) daily as Bran ch Kit directed. Brand per Insurance. ferrous 3-0 Yes [id number] 325mg Take 1 Uni vers sulfate 5-17 tablet by ity of (IRON, 00:00: mouth in [place] FERROUS 00 the Medical SULFATE,) morning. Branch 325 mg (65 mg iron) tablet ascorbic 3-0 Yes [id number] 500mg Take 1 Un ita acid, 5-17 tablet by ity of vitamin C, 00:00: mouth in [place] 500 mg 00 the Medical tablet morning. Branch aspirin 81 2022-0 Yes [id number] 81mg Take 1 U nivers mg EC 5-17 tablet by ity of tablet 00:00: mouth in [place] 00 the Medical morning. Branch Alcohol 2022-0 Yes [facility]17 area 4 ity of 00:00: times a [place] 00 day to Medical check Branch blood sugar as directed. Blood Sugar 0 Yes Check Unive rs Diagnostic, 5-17 blood ity of Disc Strp 00:00: sugar 4 [place] 00 times a Medical day as Branch directed. Lancets 2022-0 Yes Check [facility] Misc 5-17 blood ity of 00:00: sugars 4 [place] 00 times a Medical day as Branch directed. Blood-Gluco 0 Yes Check Unive rs se Meter 5-17 blood ity of (BLOOD 00:00: sugar 4 [place] GLUCOSE 00 times Medical MONITORING) daily as Bran ch Kit directed. Brand per Insurance. ferrous 2022-0 Yes [id number] 325mg Take 1 Uni vers sulfate 5-17 tablet by ity of (IRON, 00:00: mouth in [place] FERROUS 00 the Medical SULFATE,) morning. Branch 325 mg (65 mg iron) tablet ascorbic 2022-0 Yes [id number] 500mg Take 1 Un ita acid, 5-17 tablet by ity of vitamin C, 00:00: mouth in [place] 500 mg 00 the Medical tablet morning. Branch aspirin 81 2022-0 Yes [id number] 81mg Take 1 U nivers mg EC 5-17 tablet by ity of tablet 00:00: mouth in [place] 00 the Medical morning. Branch Alcohol 2022-0 Yes Apply to Un[facility] s Swabs PadM 5-17 area 4 ity of 00:00: times a [place] 00 day to Medical check Branch blood sugar as directed. Blood Sugar 0 Yes Check Unive rs Diagnostic, 5-17 blood ity of Disc Strp 00:00: sugar 4 [place] 00 times a Medical day as Branch directed. Lancets 2022-0 Yes Check [facility] Misc 5-17 blood ity of 00:00: sugars 4 [place] 00 times a Medical day as Branch directed. Blood-Gluco 2022-0 Yes Check Unive rs se Meter 5-17 blood ity of (BLOOD 00:00: sugar 4 [place] GLUCOSE 00 times Medical MONITORING) daily as Bran ch Kit directed. Brand per Insurance. ferrous 2022-0 Yes [id number] 325mg Take 1 Uni vers sulfate 5-17 tablet by ity of (IRON, 00:00: mouth in [place] FERROUS 00 the Medical SULFATE,) morning. Branch 325 mg (65 mg iron) tablet ascorbic 2022-0 Yes [id number] 500mg Take 1 Un ita acid, 5-17 tablet by ity of vitamin C, 00:00: mouth in [place] 500 mg 00 the Medical tablet morning. Branch aspirin 81 2022-0 Yes [id number] 81mg Take 1 U nivers mg EC 5-17 tablet by ity of tablet 00:00: mouth in [place] 00 the Medical morning. Branch Alcohol 2022-0 Yes Apply to [employer] [facility] Swabs PadM 5-17 area 4 ity of 00:00: times a [place] 00 day to Medical check Branch blood sugar as directed. Blood Sugar 0 Yes Check Unive rs Diagnostic, 5-17 blood ity of Disc Strp 00:00: sugar 4 [place] 00 times a Medical day as Branch directed. Lancets 2022-0 Yes Check [facility] Misc 5-17 blood ity of 00:00: sugars 4 [place] 00 times a Medical day as Branch directed. Blood-Gluco 0 Yes Check Unive rs se Meter 5-17 blood ity of (BLOOD 00:00: sugar 4 [place] GLUCOSE 00 times Medical MONITORING) daily as Bran ch Kit directed. Brand per Insurance. ferrous 2022-0 Yes [id number] 325mg Take 1 Uni vers sulfate 5-17 tablet by ity of (IRON, 00:00: mouth in [place] FERROUS 00 the Medical SULFATE,) morning. Branch 325 mg (65 mg iron) tablet ascorbic 2022-0 Yes [id number] 500mg Take 1 Un ita acid, 5-17 tablet by ity of vitamin C, 00:00: mouth in [place] 500 mg 00 the Medical tablet morning. Branch aspirin 81 2022-0 Yes [id number] 81mg Take 1 U nivers mg EC 5-17 tablet by ity of tablet 00:00: mouth in [place] 00 the Medical morning. Branch Alcohol 2022-0 Yes Apply to [facility] s Swabs PadM 5-17 area 4 ity of 00:00: times a [place] 00 day to Medical check Branch blood sugar as directed. Blood Sugar Yes Check Unive rs Diagnostic, 5-17 blood ity of Disc Strp 00:00: sugar 4 [place] 00 times a Medical day as Branch directed. Lancets 0 Yes Check [facility] Misc 5-17 blood ity of 00:00: sugars 4 [place] 00 times a Medical day as Branch directed. Blood-Gluco Yes Check Unive rs se Meter 5-17 blood ity of (BLOOD 00:00: sugar 4 [place] GLUCOSE 00 times Medical MONITORING) daily as Bran ch Kit directed. Brand per Insurance. ferrous 2022-0 Yes [id number] 325mg Take 1 Uni vers sulfate 5-17 tablet by ity of (IRON, 00:00: mouth in [place] FERROUS 00 the Medical SULFATE,) morning. Branch 325 mg (65 mg iron) tablet ascorbic 2022-0 Yes [id number] 500mg Take 1 Un ita acid, 5-17 tablet by ity of vitamin C, 00:00: mouth in [place] 500 mg 00 the Medical tablet morning. Branch aspirin 81 2022-0 Yes [id number] 81mg Take 1 U nivers mg EC 5-17 tablet by ity of tablet 00:00: mouth in [place] 00 the Medical morning. Branch Alcohol [address] [facility] s Swabs Pad 17 area 4 ity of 00:00: times a [place] 00 day to Medical check Branch blood sugar as directed. Blood Sugar Yes Check Unive rs Diagnostic, 5-17 blood ity of Disc Strp 00:00: sugar 4 [place] 00 times a Medical day as Branch directed. Lancets 2022-0 Yes Check [facility] Misc 5-17 blood ity of 00:00: sugars 4 [place] 00 times a Medical day as Branch directed. ascorbic 2022-0 2023- No [id number] 500mg Take 1 U nivers acid, 5-17 08-15 tablet by ity of vitamin C, 00:00: 00:00 mouth in [place] 500 mg 00 :00 the Medical tablet morning. Branch aspirin 81 2022-0 2023- No [id number] 81mg Take 1 [facility] mg EC 5-17 08-15 tablet by ity of tablet 00:00: 00:00 mouth in [place] 00 :00 the Medical morning. Branch Alcohol 2022- No Apply to Unive rs Swabs PadM 07-11 area 4 ity of 00:00: 00:00 times a [place] 00 :00 day to Medical check Branch blood sugar as directed. Blood Sugar 2022- No Check Univ ers Diagnostic, 07-11 blood ity of Disc Strp 00:00: 00:00 sugar 4 [place] 00 :[place] times a Medical day as Branch directed. Lancets 2022- No Check Univers Misc 07-11 blood ity of 00:00: 00:00 sugars 4 [place] 00 :00 times a Medical day as Branch directed. Blood-Gluco 2022- No Check Univ ers se Meter 07-11 blood ity of (BLOOD 00:00: 00:00 sugar 4 [place] GLUCOSE 00 :00 times Medical MONITORING) daily as Bran ch Kit directed. Brand per Insurance. ferrous 2022- No [id number] 325mg Take 1 Un ita sulfate 07-11 tablet by ity of (IRON, 00:00: 00:00 mouth in [place] FERROUS 00 :00 the Medical SULFATE,) morning. Branch 325 mg (65 mg iron) tablet ascorbic 2022- No [id number] 500mg Take 1 U nivers acid, 07-11 tablet by ity of vitamin C, 00:00: 00:00 mouth in [place] 500 mg 00 :00 the Medical tablet morning. Branch aspirin 81 2022- No [id number] 81mg Take 1 Univers mg EC 07-11 tablet by ity of tablet 00:00: 00:00 mouth in [place] 00 :00 the Medical morning. Branch Alcohol 2022- No [facility]11 area 4 ity of 00:00: 00:00 times a [place] 00 :00 day to Medical check Branch blood sugar as directed. Blood Sugar 2022- No Check Univ ers Diagnostic, 07-11 blood ity of Disc Strp 00:00: 00:00 [place] 4 [place] 00 :[place] times a Medical day as Branch directed. Lancets 2022- No Check [facility] Misc 5-17 08-15 blood ity of 00:00: 00:00 sugars 4 [place] 00 :00 times a Medical day as Branch directed. Blood-Gluco 2022-0 2022- No Check Univ ers se Meter 5-17 08-15 blood ity of (BLOOD 00:00: 00:00 sugar 4 [place] GLUCOSE 00 :00 times Medical MONITORING) daily as Bran ch Kit directed. Brand per Insurance. ferrous 2022-0 2022- No [id number] 325mg Take 1 Un ita sulfate 5-17 08-15 tablet by ity of (IRON, 00:00: 00:00 mouth in [place] FERROUS 00 :00 the Medical SULFATE,) morning. Branch 325 mg (65 mg iron) tablet ferrous 2022-0 Yes [id number] 325mg Take 1 Uni vers sulfate 5-15 tablet by ity of (IRON, 00:00: mouth in [place] FERROUS 00 the Medical SULFATE,) morning. Branch 325 mg (65 mg iron) tablet aspirin 81 2022-0 Yes [id number] 81mg Take 1 U nivers mg EC 5-15 tablet by ity of tablet 00:00: mouth in [place] 00 the Medical morning. Branch ascorbic 2022-0 Yes [id number] 500mg Take 1 Un ita acid, 5-15 tablet by ity of vitamin C, 00:00: mouth in [place] 500 mg 00 the Medical tablet morning. Branch Alcohol Yes Apply to [facility] s Swabs PadM 5-15 area 4 ity of 00:00: times a [place] 00 day to Medical check Branch blood sugar as directed. Blood-Gluco 0 Yes Check Unive rs se Meter 5-15 blood ity of (BLOOD 00:00: sugar 4 [place] GLUCOSE 00 times Medical MONITORING) daily as Bran ch Kit directed. Brand per Insurance. Blood Sugar 0 Yes Check Unive rs Diagnostic, 5-15 blood ity of Disc Strp 00:00: sugar 4 [place] 00 times a Medical day as Branch directed. Lancets 2022-0 Yes Check Univers Misc 5-15 blood ity of 00:00: sugars 4 [place] 00 times a Medical day as Branch directed. ferrous 2022-0 Yes [id number] 325mg Take 1 Uni vers sulfate 5-15 tablet by ity of (IRON, 00:00: mouth in [place] FERROUS 00 the Medical SULFATE,) morning. Branch 325 mg (65 mg iron) tablet aspirin 81 2022-0 Yes [id number] 81mg Take 1 U nivers mg EC 5-15 tablet by ity of tablet 00:00: mouth in [place] 00 the Medical morning. Branch ascorbic 2022-0 Yes [id number] 500mg Take 1 Un ita acid, 5-15 tablet by ity of vitamin C, 00:00: mouth in [place] 500 mg 00 the Medical tablet morning. Branch Alcohol 0 Yes Apply to Univer s Swabs PadM 5-15 area 4 ity of 00:00: times a [place] 00 day to Medical check Branch blood sugar as directed. Blood-Gluco Yes Check Unive rs se Meter 5-15 blood ity of (BLOOD 00:00: sugar 4 [place] GLUCOSE 00 times Medical MONITORING) daily as Bran ch Kit directed. Brand per Insurance. Blood Sugar 0 Yes Check Unive rs Diagnostic, 5-15 blood ity of Disc Strp 00:00: sugar 4 [place] 00 times a Medical day as Branch directed. Lancets Yes Check Univers Misc 5-15 blood ity of 00:00: sugars 4 [place] 00 times a Medical day as Branch directed. ferrous 2022-0 Yes [id number] 325mg Take 1 Uni vers sulfate 5-15 tablet by ity of (IRON, 00:00: mouth in [place] FERROUS 00 the Medical SULFATE,) morning. Branch 325 mg (65 mg iron) tablet aspirin 81 2022-0 Yes [id number] 81mg Take 1 U nivers mg EC 5-15 tablet by ity of tablet 00:00: mouth in [place] 00 the Medical morning. Branch ascorbic 2022-0 Yes [id number] 500mg Take 1 Un ita acid, 5-15 tablet by ity of vitamin C, 00:00: mouth in [place] 500 mg 00 the Medical tablet morning. Branch Alcohol 2022-0 Yes Apply to Univer s Swabs PadM 5-15 area 4 ity of 00:00: times a [place] 00 day to Medical check Branch blood sugar as directed. Blood-Gluco Yes Check Unive rs se Meter 5-15 blood ity of (BLOOD 00:00: sugar 4 [place] GLUCOSE 00 times Medical MONITORING) daily as Bran ch Kit directed. Brand per Insurance. Blood Sugar Yes Check Unive rs Diagnostic, 5-15 blood ity of Disc Strp 00:00: sugar 4 [place] 00 times a Medical day as Branch directed. Lancets Yes Check Univers Misc 07-09 blood ity of 00:00: sugars 4 [place] 00 times a Medical day as Branch directed. ferrous 2022- No [id number] 325mg Take 1 Un ita sulfate 07-09 tablet by ity of (IRON, 00:00: 00:00 mouth in [place] FERROUS 00 :00 the Medical SULFATE,) morning. Branch 325 mg (65 mg iron) tablet aspirin 81 2022- No [id number] 81mg Take 1 Univers mg EC 07-09 tablet by ity of tablet 00:00: 00:00 mouth in [place] 00 :00 the Medical morning. Branch ascorbic 2022- No [id number] 500mg Take 1 U nivers acid, 07-09 tablet by ity of vitamin C, 00:00: 00:00 mouth in [place] 500 mg 00 :00 the Medical tablet morning. Branch Alcohol 2022- No [facility] Sw[facility] PadM 07-09 area 4 ity of 00:00: 00:00 times a [place] 00 :00 day to Medical check Branch blood sugar as directed. Blood-Gluco 2022- No Check Univ ers se Meter 07-09 blood ity of (BLOOD 00:00: 00:00 sugar 4 [place] GLUCOSE 00 :00 times Medical MONITORING) daily as Bran ch Kit directed. Brand per Insurance. Blood Sugar 2022- No Check Univ ers Diagnostic, 07-09 blood ity of Disc Strp 00:00: 00:00 sugar 4 [place] :[place] times a Medical day as Branch directed. Lancets 2022- No Check Univers Misc 07-09 blood ity of 00:00: 00:00 sugars 4 [place] 00 :00 times a Medical day as Branch directed. NaCl 0.9% 2022- No 1000mL at 999 Uni vers (NS) bolus 05-03 03-09 mL/hr, ity of infusion 00:00: 01:45 1,000 mL, [place] 1,000 mL 00 :00 IV Medical Infusion, Branch ONCE, 1 dose, On Sat05/02/22 at 1800, JOSI proMETHazin No 25mg 25 mg, IV Univers e 05-02 Piggyback, ity of (PHENERGAN) 23:00: 23:05 ONCE, 1 [place] 25 mg in 00 :00 dose, On Medical NaCl 0.9% 05/02/22 Bran ch (NS) 50 mL at 1700, IV JOSI piggyback cephALEXin 2022- No [id number] 500mg Take 1 Univers (KEFLEX) 05-0216 capsule by ity of 500 mg 00:00: 04:59 mouth in [place] capsule 00 :00 the Medical morning Branch and 1 capsule in the evening. Do all this for 7 days. acetaminoph 2021-02 No 1{tbl} 1 tablet, Univers en-codeine 03-01 Oral, ONCE it y of (TYLENOL 10:15: 09:41 NOW, 1 [place] #3) 300-30 00 :00 dose, On Medic al mg tablet 1 [facility] Branch tablet 12/30/21 at 0515, JOSI dexamethaso 2021-02 No 10mg 10 mg, Uni vers ne sod phos 03-01 Intramuscu i ty of PF 09:30: 09:41 lar, ONCE, [place] injection 00 :00 1 dose, On Medi silver 10 mg Sat Branch 12/30/21 at 0430, 1 mL benzonatate 2021-02 Yes [id number] 100mg Take 1 Univers 100 mg 1-05 capsule by ity of capsule 00:00: mouth 3 [place] (three) Medical times Branch daily as needed for Cough. benzonatate 2021-02 Yes [id number] 100mg Take 1 Univers 100 mg 1-05 capsule by ity of capsule 00:00: mouth 3 [place] (three) Medical times Branch daily as needed for Cough. benzonatate 2021-02 Yes [id number] 100mg Take 1 Univers 100 mg 1-05 capsule by ity of capsule 00:00: mouth 3 [place] (three) Medical times Branch daily as needed for Cough. benzonatate 2021-02 Yes [id number] 100mg Take 1 Univers 100 mg 1-05 capsule by ity of capsule 00:00: mouth 3 [place] (three) Medical times Branch daily as needed for Cough. benzonatate 2021-02 Yes [id number] 100mg Take 1 Univers 100 mg 1-05 capsule by ity of capsule 00:00: mouth 3 (three) Medical times Branch daily as needed for Cough. benzonatate 2021-02 Yes [id number] 100mg Take 1 Univers 100 mg 1-05 capsule by ity of capsule 00:00: mouth 3 (three) Medical times Branch daily as needed for Cough. benzonatate 2021-02 Yes [id number] 100mg Take 1 Univers 100 mg 1-05 capsule by ity of capsule 00:00: mouth (three) Medical times Branch daily as needed for Cough. benzonatate 2021-02 Yes [id number] 100mg Take 1 Univers 100 mg 1-05 capsule by ity of capsule 00:00: mouth (three) Medical times Branch daily as needed for Cough. benzonatate 2021-02 Yes [id number] 100mg Take 1 Univers 100 mg 1-05 capsule by ity of capsule 00:00: mouth (three) Medical times Branch daily as needed for Cough. benzonatate 2021-02 Yes [id number] 100mg Take 1 Univers 100 mg 1-05 capsule by ity of capsule 00:00: mouth (three) Medical times Branch daily as needed for Cough. benzonatate 2021-02 Yes [id number] 100mg Take 1 Univers 100 mg 1-05 capsule by ity of capsule 00:00: mouth (three) Medical times Branch daily as needed for Cough. benzonatate 2021-02 Yes [id number] 100mg Take 1 Univers 100 mg 1-05 capsule by ity of capsule 00:00: mouth (three) Medical times Branch daily as needed for Cough. benzonatate 2021-02 Yes [id number] 100mg Take 1 Univers 100 mg 1-05 capsule by ity of capsule 00:00: mouth (three) Medical times Branch daily as needed for Cough. benzonatate 2021-02 Yes [id number] 100mg Take 1 Univers 100 mg 1-05 capsule by ity of capsule 00:00: mouth 3 (three) Medical times Branch daily as needed for Cough. benzonatate 2021-02 Yes [id number] 100mg Take 1 Univers 100 mg 1-05 capsule by ity of capsule 00:00: mouth 3 (three) Medical times Branch daily as needed for Cough. benzonatate 2021-02 Yes [id number] 100mg Take 1 Univers 100 mg 1-05 capsule by ity of capsule 00:00: mouth 3 (three) Medical times Branch daily as needed for Cough. benzonatate 2021-02 Yes [id number] 100mg Take 1 Univers 100 mg 1-05 capsule by ity of capsule 00:00: mouth (three) Medical times Branch daily as needed for Cough. benzonatate 2021-02 Yes [id number] 100mg Take 1 Univers 100 mg 1-05 capsule by ity of capsule 00:00: mouth (three) Medical times Branch daily as needed for Cough. benzonatate 2021-02 Yes [id number] 100mg Take 1 Univers 100 mg 1-05 capsule by ity of capsule 00:00: mouth (three) Medical times Branch daily as needed for Cough. benzonatate 2021-02 Yes [id number] 100mg Take 1 Univers 100 mg 1-05 capsule by ity of capsule 00:00: mouth (three) Medical times Branch daily as needed for Cough. benzonatate 2021-02 Yes [id number] 100mg Take 1 Univers 100 mg 1-05 capsule by ity of capsule 00:00: mouth (three) Medical times Branch daily as needed for Cough. benzonatate 2021-02 Yes [id number] 100mg Take 1 Univers 100 mg 1-05 capsule by ity of capsule 00:00: mouth (three) Medical times Branch daily as needed for Cough. benzonatate 2021-02 Yes [id number] 100mg Take 1 Univers 100 mg 1-05 capsule by ity of capsule 00:00: mouth (three) Medical times Branch daily as needed for Cough. benzonatate 2021-02 Yes [id number] 100mg Take 1 Univers 100 mg 1-05 capsule by ity of capsule 00:00: mouth 3 (three) Medical times Branch daily as needed for Cough. benzonatate 2021-02 Yes [id number] 100mg Take 1 Univers 100 mg 1-05 capsule by ity of capsule 00:00: mouth (three) Medical times Branch daily as needed for Cough. benzonatate 2021-02 Yes [id number] 100mg Take 1 Univers 100 mg 1-05 capsule by ity of capsule 00:00: mouth (three) Medical times Branch daily as needed for Cough. benzonatate 2021-02 Yes [id number] 100mg Take 1 Univers 100 mg 1-05 capsule by ity of capsule 00:00: mouth (three) Medical times Branch daily as needed for Cough. benzonatate 2021-02 Yes [id number] 100mg Take 1 Univers 100 mg 1-05 capsule by ity of capsule 00:00: mouth (three) Medical times Branch daily as needed for Cough. benzonatate 2021-02 Yes [id number] 100mg Take 1 Univers 100 mg 1-05 capsule by ity of capsule 00:00: mouth (three) Medical times Branch daily as needed for Cough. benzonatate 2021-02 Yes [id number] 100mg Take 1 Univers 100 mg 1-05 capsule by ity of capsule 00:00: mouth (three) Medical times Branch daily as needed for Cough. benzonatate 2021-02 Yes [id number] 100mg Take 1 Univers 100 mg 1-05 capsule by ity of capsule 00:00: mouth (three) Medical times Branch daily as needed for Cough. benzonatate 2021-02 Yes [id number] 100mg Take 1 Univers 100 mg 1-05 capsule by ity of capsule 00:00: mouth (three) Medical times Branch daily as needed for Cough. benzonatate 2021-02 Yes [id number] 100mg Take 1 Univers 100 mg 1-05 capsule by ity of capsule 00:00: mouth (three) Medical times Branch daily as needed for Cough. benzonatate 2021-02 Yes [id number] 100mg Take 1 Univers 100 mg 1-05 capsule by ity of capsule 00:00: mouth (three) Medical times Branch daily as needed for Cough. benzonatate 2021-02 Yes [id number] 100mg Take 1 Univers 100 mg 1-05 capsule by ity of capsule 00:00: mouth (three) Medical times Branch daily as needed for Cough. benzonatate 2021-02 Yes [id number] 100mg Take 1 Univers 100 mg 1-05 capsule by ity of capsule 00:00: mouth 3 (three) Medical times Branch daily as needed for Cough. benzonatate 2021-02 Yes [id number] 100mg Take 1 Univers 100 mg 1-05 capsule by ity of capsule 00:00: mouth 3 (three) Medical times Branch daily as needed for Cough. benzonatate 2021-02 Yes [id number] 100mg Take 1 Univers 100 mg 1-05 capsule by ity of capsule 00:00: mouth 3 (three) Medical times Branch daily as needed for Cough. benzonatate 2021-02 Yes [id number] 100mg Take 1 Univers 100 mg 1-05 capsule by ity of capsule 00:00: mouth (three) Medical times Branch daily as needed for Cough. benzonatate 2021-02 Yes [id number] 100mg Take 1 Univers 100 mg 1-05 capsule by ity of capsule 00:00: mouth (three) Medical times Branch daily as needed for Cough. benzonatate 2021-02 Yes [id number] 100mg Take 1 Univers 100 mg 1-05 capsule by ity of capsule 00:00: mouth (three) Medical times Branch daily as needed for Cough. benzonatate 2021-02 Yes [id number] 100mg Take 1 Univers 100 mg 1-05 capsule by ity of capsule 00:00: mouth 3 (three) Medical times Branch daily as needed for Cough. benzonatate 2021-02 Yes [id number] 100mg Take 1 Univers 100 mg 1-05 capsule by ity of capsule 00:00: mouth (three) Medical times Branch daily as needed for Cough. benzonatate 2021-02 Yes [id number] 100mg Take 1 Univers 100 mg 1-05 capsule by ity of capsule 00:00: mouth 3 (three) Medical times Branch daily as needed for Cough. benzonatate 2021-02 Yes [id number] 100mg Take 1 Univers 100 mg 1-05 capsule by ity of capsule 00:00: mouth 3 (three) Medical times Branch daily as needed for Cough. benzonatate 2021-02 Yes [id number] 100mg Take 1 Univers 100 mg 1-05 capsule by ity of capsule 00:00: mouth 3 (three) Medical times Branch daily as needed for Cough. benzonatate 2021-02 Yes [id number] 100mg Take 1 Univers 100 mg 1-05 capsule by ity of capsule 00:00: mouth 3 00 (three) Medical times Branch daily as needed for Cough. benzonatate 2021-02 Yes [id number] 100mg Take 1 Univers 100 mg 1-05 capsule by ity of capsule 00:00: mouth 3 00 (three) Medical times Branch daily as needed for Cough. benzonatate 2021-02 Yes [id number] 100mg Take 1 Univers 100 mg 1-05 capsule by ity of capsule 00:00: mouth 3 00 (three) Medical times Branch daily as needed for Cough. benzonatate 2021-02 Yes [id number] 100mg Take 1 Univers 100 mg 1-05 capsule by ity of capsule 00:00: mouth 3 00 (three) Medical times Branch daily as needed for Cough. benzonatate 2021-02 Yes [id number] 100mg Take 1 Univers 100 mg 1-05 capsule by ity of capsule 00:00: mouth 3 00 (three) Medical times Branch daily as needed for Cough. benzonatate 2021-02- No [id number] 100mg Take 1 Univers 100 mg 1-05 08-15 capsule by ity of capsule 00:00: 00:00 mouth 3 [place] 00 :00 (three) Medical times Branch daily as needed for Cough. benzonatate 2021-02- No [id number] 100mg Take 1 Univers 100 mg 1-05 08-15 capsule by ity of capsule 00:00: 00:00 mouth 3 [place] 00 :00 (three) Medical times Branch daily as needed for Cough. amoxicillin 2021-02- No [id number] 1{tbl} Take 1 Univers -clavulanat 1-05 11-13 tablet by it y of e [id number] 00:00: 05:59 mouth [place] mg per 00 :00 every 12 Medical tablet (twelve) Branch hours for 7 days. NaCl 0.9% 2021-02- No 1000mL at 999 Uni vers (NS) bolus 0-19 10-20 mL/hr, ity of infusion 22:30: 00:44 1,000 mL, [place] 1,000 mL 00 :00 IV Medical Infusion, Branch ONCE, 1 dose, On Sat12/13/21 at 1730, JOSI ketorolac 2021-02 No 15mg 15 mg, Unive rs (TORADOL) 012-13 Slow IV ity of injection 22:30: 23:58 Push, [place] 15 mg 00 :00 ONCE, 1 Medical dose, On Branch Sat12/13/21 at 1730, Routine famotidine 2021-02 No 20mg 20 mg, Univ ers (PEPCID 012-13 Slow IV ity of (PF)) 22:30: 23:57 Push, [place] injection 00 :00 ONCE, 1 Medical 20 mg dose, On Branch Sat12/13/21 at 1730, JOSI maalox:diph 2021-02 No 15mL 15 mL, Uni vers enhydrAMINE 12-13 Oral, ity of :lidocaine 22:30: 23:58 ONCE, 1 [place] 2 % viscous 00 :00 dose, On Medi silver 1:1:1 Wed Branch ([facility] 12/13/21 [facility] at 1730, oral JOSI suspension 15 mL hydrocortis 2021-02 Yes [id number] 1{appli Insert 1 Univers one-pramovi 0-19 cator} Applicator ity of ne rectal 00:00: into [place] foam 00 rectum in [facility] morning and 1 Applicator in the evening. dicyclomine 2021-02 Yes [id number] 20mg Take 1 Univers 20 mg 0-19 tablet by ity of tablet 00:00: mouth 4 [place] [address] (four) Medical times [place] daily as needed for Abdominal pain. hydrocortis 2021-02 Yes [id number] 1{appli Insert 1 Univers one-pramovi 0-19 cator} Applicator ity of ne rectal 00:00: into [place] foam 00 rectum in [facility] morning and 1 Applicator in the evening. dicyclomine 2021-02 Yes [id number] 20mg Take 1 Univers 20 mg 0-19 tablet by ity of tablet 00:00: mouth 4 [place] 00 (four) Medical times [place] daily as needed for Abdominal pain. hydrocortis 2021-02 Yes [id number] 1{appli Insert 1 Univers one-pramovi 0-19 cator} Applicator ity of ne rectal 00:00: into [place] foam 00 rectum in Medical the [place] morning and 1 Applicator in the evening. dicyclomine 2021-02 Yes [id number] 20mg Take 1 Univers 20 mg 0-19 tablet by ity of tablet 00:00: mouth 4 [place] 00 (four) Medical times [place] daily as needed for Abdominal pain. hydrocortis 2021-02 Yes [id number] 1{appli Insert 1 Univers one-pramovi 0-19 cator} Applicator ity of ne rectal 00:00: into [place] foam 00 rectum in [facility] the [place] morning and 1 Applicator in the evening. dicyclomine 2021-02 Yes [id number] 20mg Take 1 Univers 20 mg 0-19 tablet by ity of tablet 00:00: mouth 4 [place] 00 (four) [facility] daily as needed for Abdominal pain. hydrocortis 2021-02 Yes [id number] 1{appli Insert 1 Univers one-pramovi 0-19 cator} Applicator ity of ne rectal 00:00: into [place] foam 00 rectum in [facility] the [place] morning and 1 Applicator in the evening. dicyclomine 2021-02 Yes [id number] 20mg Take 1 Univers 20 mg 0-19 tablet by ity of tablet 00:00: mouth 4 [place] 00 (four) [facility] daily as needed for Abdominal pain. hydrocortis 2021-02 Yes [id number] 1{appli Insert 1 Univers one-pramovi 0-19 cator} Applicator ity of ne rectal 00:00: into [place] foam 00 rectum in [facility] the [place] morning and 1 Applicator in the evening. dicyclomine 2021-02 Yes [id number] 20mg Take 1 Univers 20 mg 0-19 tablet by ity of tablet 00:00: mouth 4 [place] 00 (four) [facility] times [place] daily as needed for Abdominal pain. hydrocortis 2021-02 Yes [id number] 1{appli Insert 1 Univers one-pramovi 0-19 cator} Applicator ity of ne rectal 00:00: into [place] foam 00 rectum in Medical the [place] morning and 1 Applicator in the evening. dicyclomine 2021-02 Yes [id number] 20mg Take 1 Univers 20 mg 0-19 tablet by ity of tablet 00:00: mouth 4 (four) Medical times Branch daily as needed for Abdominal pain. hydrocortis 2021-02 Yes [id number] 1{appli Insert 1 Univers one-pramovi 0-19 cator} Applicator ity of ne rectal 00:00: into [place] foam 00 rectum in Medical the Branch morning and 1 Applicator in the evening. dicyclomine 2021-02 Yes [id number] 20mg Take 1 Univers 20 mg 0-19 tablet by ity of tablet 00:00: mouth 4 (four) Medical times Branch daily as needed for Abdominal pain. hydrocortis 2021-02 Yes [id number] 1{appli Insert 1 Univers one-pramovi 0-19 cator} Applicator ity of ne rectal 00:00: into [place] foam 00 rectum in Medical the Branch morning and 1 Applicator in the evening. dicyclomine 2021-02 Yes [id number] 20mg Take 1 Univers 20 mg 0-19 tablet by ity of tablet 00:00: mouth 4 (four) Medical times [place] daily as needed for Abdominal pain. hydrocortis 2021-02 Yes [id number] 1{appli Insert 1 Univers one-pramovi 0-19 cator} Applicator ity of ne rectal 00:00: into [place] foam 00 rectum in Medical the Branch morning and 1 Applicator in the evening. dicyclomine 2021-02 Yes [id number] 20mg Take 1 Univers 20 mg 0-19 tablet by ity of tablet 00:00: mouth 4 (four) Medical times [place] daily as needed for Abdominal pain. hydrocortis 2021-02 Yes [id number] 1{appli Insert 1 Univers one-pramovi 0-19 cator} Applicator ity of ne rectal 00:00: into [place] foam 00 rectum in Medical the Branch morning and 1 Applicator in the evening. dicyclomine 2021-02 Yes [id number] 20mg Take 1 Univers 20 mg 0-19 tablet by ity of tablet 00:00: mouth 4 [place] (four) Medical times Branch daily as needed for Abdominal pain. hydrocortis 2021-02 Yes [id number] 1{appli Insert 1 Univers one-pramovi 0-19 cator} Applicator ity of ne rectal 00:00: into [place] foam 00 rectum in Medical the [place] morning and 1 Applicator in the evening. dicyclomine 2021-02 Yes [id number] 20mg Take 1 Univers 20 mg 0-19 tablet by ity of tablet 00:00: mouth 4 (four) [facility] daily as needed for Abdominal pain. hydrocortis 2021-02 Yes [id number] 1{appli Insert 1 Univers one-pramovi 0-19 cator} Applicator ity of ne rectal 00:00: into [place] foam 00 rectum in [facility] the [place] morning and 1 Applicator in the evening. dicyclomine 2021-02 Yes [id number] 20mg Take 1 Univers 20 mg 0-19 tablet by ity of tablet 00:00: mouth 4 ([facility]) [facility] daily as needed for Abdominal pain. hydrocortis 2021-02 Yes [id number] 1{appli Insert 1 Univers one-pramovi 0-19 cator} Applicator ity of ne rectal 00:00: into [place] foam 00 rectum in [facility] morning and 1 Applicator in the evening. dicyclomine 2021-02 Yes [id number] 20mg Take 1 Univers 20 mg 0-19 tablet by ity of tablet 00:00: mouth 4 [place] ([facility]) [facility] daily as needed for Abdominal pain. hydrocortis 2021-02 Yes [id number] 1{appli Insert 1 Univers one-pramovi 0-19 cator} Applicator ity of ne rectal 00:00: into [place] foam 00 rectum in [facility] the [place] morning and 1 Applicator in the evening. dicyclomine 2021-02 Yes [id number] 20mg Take 1 Univers 20 mg 0-19 tablet by ity of tablet 00:00: mouth 4 (four) [facility] daily as needed for Abdominal pain. hydrocortis 2021-02 Yes [id number] 1{appli Insert 1 Univers one-pramovi 0-19 cator} Applicator ity of ne rectal 00:00: into [place] foam 00 rectum in [facility] the [place] morning and 1 Applicator in the evening. dicyclomine 2021-02 Yes [id number] 20mg Take 1 Univers 20 mg 0-19 tablet by ity of tablet 00:00: mouth 4 ([facility]) [facility] daily as needed for Abdominal pain. hydrocortis 2021-02 Yes [id number] 1{appli Insert 1 Univers one-pramovi 0-19 cator} Applicator ity of ne rectal 00:00: into [place] foam 00 rectum in Medical the Branch morning and 1 Applicator in the evening. dicyclomine 2021-02 Yes [id number] 20mg Take 1 Univers 20 mg 0-19 tablet by ity of tablet 00:00: mouth 4 [place] 00 (four) Medical times [place] daily as needed for Abdominal pain. hydrocortis 2021-02 Yes [id number] 1{appli Insert 1 Univers one-pramovi 0-19 cator} Applicator ity of ne rectal 00:00: into [place] foam 00 rectum in Medical the Branch morning and 1 Applicator in the evening. dicyclomine 2021-02 Yes [id number] 20mg Take 1 Univers 20 mg 0-19 tablet by ity of tablet 00:00: mouth 4 00 (four) Medical times [place] daily as needed for Abdominal pain. hydrocortis 2021-02 Yes [id number] 1{appli Insert 1 Univers one-pramovi 0-19 cator} Applicator ity of ne rectal 00:00: into [place] foam 00 rectum in Medical the Branch morning and 1 Applicator in the evening. dicyclomine 2021-02 Yes [id number] 20mg Take 1 Univers 20 mg 0-19 tablet by ity of tablet 00:00: mouth 4 [place] 00 (four) Medical times [place] daily as needed for Abdominal pain. hydrocortis 2021-02 Yes [id number] 1{appli Insert 1 Univers one-pramovi 0-19 cator} Applicator ity of ne rectal 00:00: into [place] foam 00 rectum in Medical the Branch morning and 1 Applicator in the evening. dicyclomine 2021-02 Yes [id number] 20mg Take 1 Univers 20 mg 0-19 tablet by ity of tablet 00:00: mouth 4 [place] 00 (four) Medical times [place] daily as needed for Abdominal pain. hydrocortis 2021-02 Yes [id number] 1{appli Insert 1 Univers one-pramovi 0-19 cator} Applicator ity of ne rectal 00:00: into [place] foam 00 rectum in Medical the Branch morning and 1 Applicator in the evening. dicyclomine 2021-02 Yes [id number] 20mg Take 1 Univers 20 mg 0-19 tablet by ity of tablet 00:00: mouth 4 [place] 00 (four) Medical times [place] daily as needed for Abdominal pain. hydrocortis 2021-02 Yes [id number] 1{appli Insert 1 Univers one-pramovi 0-19 cator} Applicator ity of ne rectal 00:00: into [place] foam 00 rectum in Medical the Branch morning and 1 Applicator in the evening. dicyclomine 2021-02 Yes [id number] 20mg Take 1 Univers 20 mg 0-19 tablet by ity of tablet 00:00: mouth 4 [place] 00 (four) Medical times [place] daily as needed for Abdominal pain. hydrocortis 2021-02 Yes [id number] 1{appli Insert 1 Univers one-pramovi 0-19 cator} Applicator ity of ne rectal 00:00: into [place] foam 00 rectum in Medical the Branch morning and 1 Applicator in the evening. dicyclomine 2021-02 Yes [id number] 20mg Take 1 Univers 20 mg 0-19 tablet by ity of tablet 00:00: mouth 4 [place] 00 (four) Medical times [place] daily as needed for Abdominal pain. hydrocortis 2021-02 Yes [id number] 1{appli Insert 1 Univers one-pramovi 0-19 cator} Applicator ity of ne rectal 00:00: into [place] foam 00 rectum in Medical the Branch morning and 1 Applicator in the evening. dicyclomine 2021-02 Yes [id number] 20mg Take 1 Univers 20 mg 0-19 tablet by ity of tablet 00:00: mouth 4 [place] 00 (four) Medical times [place] daily as needed for Abdominal pain. hydrocortis 2021-02 Yes [id number] 1{appli Insert 1 Univers one-pramovi 0-19 cator} Applicator ity of ne rectal 00:00: into [place] foam 00 rectum in Medical the Branch morning and 1 Applicator in the evening. dicyclomine 2021-02 Yes [id number] 20mg Take 1 Univers 20 mg 0-19 tablet by ity of tablet 00:00: mouth 4 [place] 00 (four) Medical times [place] daily as needed for Abdominal pain. hydrocortis 2021-02 Yes [id number] 1{appli Insert 1 Univers one-pramovi 0-19 cator} Applicator ity of ne rectal 00:00: into [place] foam 00 rectum in Medical the [place] morning and 1 Applicator in the evening. dicyclomine 2021-02 Yes [id number] 20mg Take 1 Univers 20 mg 0-19 tablet by ity of tablet 00:00: mouth 4 [place] 00 (four) Medical times [place] daily as needed for Abdominal pain. hydrocortis 2021-02 Yes [id number] 1{appli Insert 1 Univers one-pramovi 0-19 cator} Applicator ity of ne rectal 00:00: into [place] foam 00 rectum in [facility] the [place] morning and 1 Applicator in the evening. dicyclomine 2021-02 Yes [id number] 20mg Take 1 [facility] 20 mg 0-19 tablet by ity of tablet 00:00: mouth 4 [place] 00 (four) [facility] daily as needed for Abdominal pain. hydrocortis 2021-02 Yes [id number] 1{appli Insert 1 [facility] one-pramovi 0-19 cator} Applicator ity of ne rectal 00:00: into [place] foam 00 rectum in [facility] the [place] morning and 1 Applicator in the evening. dicyclomine 2021-02 Yes [id number] 20mg Take 1 [facility] 20 mg 0-19 tablet by ity of tablet 00:00: mouth 4 [place] 00 (four) [facility] daily as needed for Abdominal pain. hydrocortis 2021-02 Yes [id number] 1{appli Insert 1 [facility] one-pramovi 0-19 cator} Applicator ity of ne rectal 00:00: into [place] foam 00 rectum in [facility] the [place] morning and 1 Applicator in the evening. dicyclomine 2021-02 Yes [id number] 20mg Take 1 [facility] 20 mg 0-19 tablet by ity of tablet 00:00: mouth 4 [place] 00 (four) Medical times [place] daily as needed for Abdominal pain. hydrocortis 2021-02 Yes [id number] 1{appli Insert 1 [facility] one-pramovi 0-19 cator} Applicator ity of ne rectal 00:00: into [place] foam 00 rectum in [facility] the [place] morning and 1 Applicator in the evening. dicyclomine 2021-02 Yes [id number] 20mg Take 1 [facility] 20 mg 0-19 tablet by ity of tablet 00:00: mouth 4 [place] 00 (four) Medical times [place] daily as needed for Abdominal pain. hydrocortis 2021-02 Yes [id number] 1{appli Insert 1 [facility] one-pramovi 0-19 cator} Applicator ity of ne rectal 00:00: into [place] foam 00 rectum in Medical the [place] morning and 1 Applicator in the evening. dicyclomine 2021-02 Yes [id number] 20mg Take 1 [facility] 20 mg 0-19 tablet by ity of tablet 00:00: mouth 4 [place] (four) Medical times [place] daily as needed for Abdominal pain. hydrocortis 2021-02 Yes [id number] 1{appli Insert 1 [facility] one-pramovi 0-19 cator} Applicator ity of ne rectal 00:00: into [place] foam 00 rectum in Medical the [place] morning and 1 Applicator in the evening. dicyclomine 2021-02 Yes [id number] 20mg Take 1 [facility] 20 mg 0-19 tablet by ity of tablet 00:00: mouth 4 (four) Medical times [place] daily as needed for Abdominal pain. hydrocortis 2021-02 Yes [id number] 1{appli Insert 1 [facility] one-pramovi 0-19 cator} Applicator ity of ne rectal 00:00: into [place] foam 00 rectum in Medical the [place] morning and 1 Applicator in the evening. dicyclomine 2021-02 Yes [id number] 20mg Take 1 [facility] 20 mg 0-19 tablet by ity of tablet 00:00: mouth 4 (four) Medical times [place] daily as needed for Abdominal pain. hydrocortis 2021-02 Yes [id number] 1{appli Insert 1 [facility] one-pramovi 0-19 cator} Applicator ity of ne rectal 00:00: into [place] foam 00 rectum in Medical the [place] morning and 1 Applicator in the evening. dicyclomine 2021-02 Yes [id number] 20mg Take 1 [facility] 20 mg 0-19 tablet by ity of tablet 00:00: mouth 4 [place] 00 (four) Medical times [place] daily as needed for Abdominal pain. hydrocortis 2021-02 Yes [id number] 1{appli Insert 1 [facility] one-pramovi 0-19 cator} Applicator ity of ne rectal 00:00: into [place] foam 00 rectum in Medical the [place] morning and 1 Applicator in the evening. dicyclomine 2021-02 Yes [id number] 20mg Take 1 [facility] 20 mg 0-19 tablet by ity of tablet 00:00: mouth 4 [place] 00 (four) [facility] times [place] daily as needed for Abdominal pain. hydrocortis 2021-02 Yes [id number] 1{appli Insert 1 [facility] one-pramovi 0-19 cator} Applicator ity of ne rectal 00:00: into [place] foam 00 rectum in [facility] the [place] morning and 1 Applicator in the evening. dicyclomine 2021-02 Yes [id number] 20mg Take 1 [facility] 20 mg 0-19 tablet by ity of tablet 00:00: mouth 4 ([facility]) [facility] daily as needed for Abdominal pain. hydrocortis 2021-02 Yes [id number] 1{appli Insert 1 [facility] one-pramovi 0-19 cator} Applicator ity of ne rectal 00:00: into [place] foam 00 rectum in [facility] the [place] morning and 1 Applicator in the evening. dicyclomine 2021-02 Yes [id number] 20mg Take 1 [facility] 20 mg 0-19 tablet by ity of tablet 00:00: mouth 4 (four) [facility] daily as needed for Abdominal pain. hydrocortis 2021-02 Yes [id number] 1{appli Insert 1 [facility] one-pramovi 0-19 cator} Applicator ity of ne rectal 00:00: into [place] foam 00 rectum in [facility] the [place] morning and 1 Applicator in the evening. dicyclomine 2021-02 Yes [id number] 20mg Take 1 [facility] 20 mg 0-19 tablet by ity of tablet 00:00: mouth 4 [place] 00 (four) [facility] times [place] daily as needed for Abdominal pain. hydrocortis 2021-02 Yes [id number] 1{appli Insert 1 [facility] one-pramovi 0-19 cator} Applicator ity of ne rectal 00:00: into [place] foam 00 rectum in [facility] the [place] morning and 1 Applicator in the evening. dicyclomine 2021-02 Yes [id number] 20mg Take 1 [facility] 20 mg 0-19 tablet by ity of tablet 00:00: mouth 4 [place] 00 (four) Medical times [place] daily as needed for Abdominal pain. hydrocortis 2021-02 Yes [id number] 1{appli Insert 1 [facility] one-pramovi 0-19 cator} Applicator ity of ne rectal 00:00: into [place] foam 00 rectum in Medical the Branch morning and 1 Applicator in the evening. dicyclomine 2021-02 Yes [id number] 20mg Take 1 [facility] 20 mg 0-19 tablet by ity of tablet 00:00: mouth 4 (four) Medical times [place] daily as needed for Abdominal pain. hydrocortis 2021-02 Yes [id number] 1{appli Insert 1 [facility] one-pramovi 0-19 cator} Applicator ity of ne rectal 00:00: into [place] foam 00 rectum in Medical the Branch morning and 1 Applicator in the evening. dicyclomine 2021-02 Yes [id number] 20mg Take 1 [facility] 20 mg 0-19 tablet by ity of tablet 00:00: mouth 4 (four) Medical times [place] daily as needed for Abdominal pain. hydrocortis 2021-02 Yes [id number] 1{appli Insert 1 [facility] one-pramovi 0-19 cator} Applicator ity of ne rectal 00:00: into [place] foam 00 rectum in Medical the Branch morning and 1 Applicator in the evening. dicyclomine 2021-02 Yes [id number] 20mg Take 1 [facility] 20 mg 0-19 tablet by ity of tablet 00:00: mouth 4 (four) Medical times [place] daily as needed for Abdominal pain. hydrocortis 2021-02 Yes [id number] 1{appli Insert 1 [facility] one-pramovi 0-19 cator} Applicator ity of ne rectal 00:00: into [place] foam 00 rectum in Medical the Branch morning and 1 Applicator in the evening. dicyclomine 2021-02 Yes [id number] 20mg Take 1 [facility] 20 mg 0-19 tablet by ity of tablet 00:00: mouth 4 00 (four) Medical times [place] daily as needed for Abdominal pain. hydrocortis 2021-02 Yes [id number] 1{appli Insert 1 [facility] one-pramovi 0-19 cator} Applicator ity of ne rectal 00:00: into [place] foam 00 rectum in Medical the Branch morning and 1 Applicator in the evening. dicyclomine 2021-02 Yes [id number] 20mg Take 1 [facility] 20 mg 0-19 tablet by ity of tablet 00:00: mouth 4 [place] 00 (four) Medical times [place] daily as needed for Abdominal pain. hydrocortis 2021-02 Yes [id number] 1{appli Insert 1 [facility] one-pramovi 0-19 cator} Applicator ity of ne rectal 00:00: into [place] foam 00 rectum in Medical the [place] morning and 1 Applicator in the evening. dicyclomine 2021-02 Yes [id number] 20mg Take 1 [facility] 20 mg 0-19 tablet by ity of tablet 00:00: mouth 4 [place] 00 (four) Medical times [place] daily as needed for Abdominal pain. hydrocortis 2021-02 Yes [id number] 1{appli Insert 1 [facility] one-pramovi 0-19 cator} Applicator ity of ne rectal 00:00: into [place] foam 00 rectum in Medical the [place] morning and 1 Applicator in the evening. dicyclomine 2021-02 Yes [id number] 20mg Take 1 [facility] 20 mg 0-19 tablet by ity of tablet 00:00: mouth 4 [place] 00 (four) Medical times [place] daily as needed for Abdominal pain. hydrocortis 2021-02 Yes [id number] 1{appli Insert 1 [facility] one-pramovi 0-19 cator} Applicator ity of ne rectal 00:00: into [place] foam 00 rectum in Medical the [place] morning and 1 Applicator in the evening. dicyclomine 2021-02 Yes [id number] 20mg Take 1 [facility] 20 mg 0-19 tablet by ity of tablet 00:00: mouth 4 [place] 00 (four) Medical times [place] daily as needed for Abdominal pain. hydrocortis 2021-02 Yes [id number] 1{appli Insert 1 [facility] one-pramovi 0-19 cator} Applicator ity of ne rectal 00:00: into [place] foam 00 rectum in Medical the [place] morning and 1 Applicator in the evening. dicyclomine 2021-02 Yes [id number] 20mg Take 1 [facility] 20 mg 0-19 tablet by ity of tablet 00:00: mouth 4 [place] 00 (four) Medical times [place] daily as needed for Abdominal pain. hydrocortis 2021-02 Yes [id number] 1{appli Insert 1 [facility] one-pramovi 0-19 cator} Applicator ity of ne rectal 00:00: into [place] foam 00 rectum in Medical the [place] morning and 1 Applicator in the evening. dicyclomine 2021-02 Yes [id number] 20mg Take 1 [facility] 20 mg 0-19 tablet by ity of tablet 00:00: mouth 4 [place] 00 (four) Medical times [place] daily as needed for Abdominal pain. hydrocortis 2021-02 Yes [id number] 1{appli Insert 1 [facility] one-pramovi 0-19 cator} Applicator ity of ne rectal 00:00: into [place] foam 00 rectum in Medical the [place] morning and 1 Applicator in the evening. dicyclomine 2021-02 Yes [id number] 20mg Take 1 [facility] 20 mg 0-19 tablet by ity of tablet 00:00: mouth 4 [place] 00 (four) Medical times [place] daily as needed for Abdominal pain. hydrocortis 2021-02 Yes [id number] 1{appli Insert 1 [facility] one-pramovi 0-19 cator} Applicator ity of ne rectal 00:00: into [place] foam 00 rectum in [facility] the [place] morning and 1 Applicator in the evening. dicyclomine 2021-02 Yes [id number] 20mg Take 1 [facility] 20 mg 0-19 tablet by ity of tablet 00:00: mouth 4 [place] 00 (four) [facility] times [place] daily as needed for Abdominal pain. hydrocortis 2021-02 Yes [id number] 1{appli Insert 1 [facility] one-pramovi 0-19 cator} Applicator ity of ne rectal 00:00: into [place] foam 00 rectum in Medical the [place] morning and 1 Applicator in the evening. dicyclomine 2021-02 Yes [id number] 20mg Take 1 [facility] 20 mg 0-19 tablet by ity of tablet 00:00: mouth 4 [place] 00 (four) Medical times [place] daily as needed for Abdominal pain. hydrocortis 2021-02 Yes [id number] 1{appli Insert 1 [facility] one-pramovi 0-19 cator} Applicator ity of ne rectal 00:00: into [place] foam 00 rectum in Medical the [place] morning and 1 Applicator in the evening. dicyclomine 2021-02 Yes [id number] 20mg Take 1 [facility] 20 mg 0-19 tablet by ity of tablet 00:00: mouth 4 [place] [address] (four) [facility] daily as needed for Abdominal pain. hydrocortis 2021-02- No [id number] 1{appli Insert 1 [facility] one-pramovi 0-19 08-15 cator} Applicator ity of ne rectal 00:00: 00:00 into [place] foam 00 :00 rectum in Medical the Branch morning and 1 Applicator in the evening. dicyclomine 2021-02- No [id number] 20mg Take 1 [facility] 20 mg 0-19 08-15 tablet by ity of tablet 00:00: 00:00 mouth 4 [place] 00 :00 (four) [facility] daily as needed for Abdominal pain. hydrocortis 2021-02- No [id number] 1{appli Insert 1 [facility] one-pramovi 0-19 08-15 cator} Applicator ity of ne rectal 00:00: 00:00 into [place] foam 00 :00 rectum in [facility] the [place] morning and 1 Applicator in the evening. dicyclomine 2021-02- No [id number] 20mg Take 1 [facility] 20 mg 0-19 08-15 tablet by ity of tablet 00:00: 00:00 mouth 4 [place] 00 :00 ([facility]) [facility] daily as needed for Abdominal pain. polyethylen 2021-02- No [id number] 1{packe Take 1 [facility] e glycol 0-19 11-19 t} Packet by ity o f 3350 00:00: 05:59 mouth in [place] (MIRALAX) 00 :00 the Medical 17 gram morning Branch powder and 1 Packet in the evening. Do all this for 30 days. omeprazole 2021-02- No [id number] 40mg Take 1 [facility] 40 mg 0-19 11-19 capsule by ity of capsule 00:00: 05:59 mouth in [place] 00 :00 the [facility] Branch for 30 days. polyethylen 2021-02- No [id number] 1{packe Take 1 [facility] e glycol 0-19 11-19 t} Packet by ity o f 3350 00:00: 05:59 mouth in [place] (MIRALAX) 00 :00 the Medical 17 gram morning Branch powder and 1 Packet in the evening. Do all this for 30 days. omeprazole 2021-02- No [id number] 40mg Take 1 [facility] 40 mg 0-19 - capsule by ity of capsule 00:00: 05:59 mouth in [place] 00 :00 the Medical morning Branch for 30 days. metroNIDAZO 2021- No [id number] 500mg Take 1 [facility] LE 500 mg 11-13 tablet by ity of tablet 00:00: 04:59 mouth in [place] 00 :00 the Medical morning Branch and 1 tablet in the evening. Do all this for 7 days. metroNIDAZO 2021- No [id number] 500mg Take 1 [facility] LE 500 mg 11-13 tablet by ity of tablet 00:00: 04:59 mouth in [place] 00 :00 the Medical morning Branch and 1 tablet in the evening. Do all this for 7 days. SERTraline 2021- No [id number] Take 0.5 [facility] 100 mg 9-16 10-19 tablets by ity of tablet 00:00: 04:59 mouth [place] 00 :00 daily for Medical 4 days, Branch THEN 1 tablet daily for 28 days. SERTraline 2021- No [id number] Take 0.5 [facility] 100 mg 9-16 10-19 tablets by ity of tablet 00:00: 04:59 mouth [place] 00 :00 daily for Medical 4 days, Branch THEN 1 tablet daily for 28 days. SERTraline 2021- No [id number] Take 0.5 [facility] 100 mg 9-16 10-19 tablets by ity of tablet 00:00: 04:59 mouth [place] 00 :00 daily for Medical 4 days, Branch THEN 1 tablet daily for 28 days. acetaminoph Yes [id number] 650mg Take 2 [facility] en 325 mg 8-04 tablets by ity of tablet 00:00: mouth [place] 00 every 6 Medical (six) Branch hours as needed for Pain (scale 1-3) or Pain (scale 4-6). Yes [id number] 1{tbl} Take 1 U nivers vitamin 8-04 tablet by ity of w/FA tablet 00:00: mouth in [place] 00 the Medical morning. Branch docusate Yes [id number] 200mg Take 2 Un ita 100 mg 8-04 capsules ity of capsule 00:00: by mouth [place] 00 once daily Medical as needed Branch for Constipati on. ferrous 2021-0 Yes [id number] 325mg Take 1 [facility] vers sulfate 325 8-04 tablet by ity of mg (65 mg 00:00: [place] iron[place] 00 the Medical tablet morning Branch and 1 tablet in the evening. ibuprofen 2021-0 Yes [id number] 600mg Take 1 U nivers 600 mg 8-04 tablet by ity of tablet 00:00: mouth [place] 00 every 6 Medical (six) Branch hours as needed (Pain). Take with food or milk. acetaminoph 0 Yes [id number] 650mg Take 2 [facility] en 325 mg 8-04 tablets by ity of tablet 00:00: mouth [place] 00 every 6 Medical (six) Branch hours as needed for Pain (scale 1-3) or Pain (scale 4-6). 0 Yes [id number] 1{tbl} Take 1 U nivers vitamin 8-04 tablet by ity of w/FA tablet 00:00: mouth in [place] 00 the Medical morning. Branch docusate 0 Yes [id number] 200mg Take 2 Un ita 100 mg 8-04 capsules ity of capsule 00:00: by mouth [place] 00 once daily Medical as needed Branch for Constipati on. ferrous 0 Yes [id number] 325mg Take 1 [facility] vers sulfate 325 8-04 tablet by ity of mg (65 mg [facility] Medical [facility] morning Branch and 1 tablet in the evening. ibuprofen 2021-0 Yes [id number] 600mg Take 1 U nivers 600 mg 8-04 tablet by ity of tablet 00:00: mouth [place] 00 every 6 Medical (six) Branch hours as needed (Pain). Take with food or milk. acetaminoph 2021-0 Yes [id number] 650mg Take 2 [facility] en 325 mg 8-04 tablets by ity of tablet 00:00: mouth [place] 00 every 6 Medical (six) Branch hours as needed for Pain (scale 1-3) or Pain (scale 4-6). 2021-0 Yes [id number] 1{tbl} Take 1 U nivers vitamin 8-04 tablet by ity of w/FA tablet 00:00: mouth in [place] 00 the Medical morning. Branch docusate 0 Yes [id number] 200mg Take 2 Un ita 100 mg 8-04 capsules ity of capsule 00:00: by mouth [place] 00 once daily Medical as needed Branch for Constipati on. ferrous 0 Yes [id number] 325mg Take 1 [facility] vers sulfate 325 8-04 tablet by ity of mg (65 mg 00:00: mouth [place] iron[place] 00 the Medical tablet morning Branch and 1 tablet in the evening. ibuprofen 2021-0 Yes [id number] 600mg Take 1 U nivers 600 mg 8-04 tablet by ity of tablet 00:00: mouth [place] 00 every 6 Medical (six) Branch hours as needed (Pain). Take with food or milk. acetaminoph 0 Yes [id number] 650mg Take 2 [facility] en 325 mg 8-04 tablets by ity of tablet 00:00: mouth [place] 00 every 6 Medical (six) Branch hours as needed for Pain (scale 1-3) or Pain (scale 4-6). Yes [id number] 1{tbl} Take 1 U nivers vitamin 8-04 tablet by ity of w/FA tablet 00:00: mouth in [place] 00 the Medical morning. Branch docusate 0 Yes [id number] 200mg Take 2 Un ita 100 mg 8-04 capsules ity of capsule 00:00: by mouth [place] 00 once daily Medical as needed Branch for Constipati on. ferrous 0 Yes [id number] 325mg Take 1 [facility] vers sulfate 325 8-04 tablet by ity of mg (65 mg 00:00: mouth [place] iron[place] 00 the Medical tablet morning Branch and 1 tablet in the evening. ibuprofen 0 Yes [id number] 600mg Take 1 U nivers 600 mg 8-04 tablet by ity of tablet 00:00: mouth [place] 00 every 6 Medical (six) Branch hours as needed (Pain). Take with food or milk. acetaminoph 0 Yes [id number] 650mg Take 2 [facility] en 325 mg 8-04 tablets by ity of tablet 00:00: mouth [place] 00 every 6 Medical (six) Branch hours as needed for Pain (scale 1-3) or Pain (scale 4-6). 2022-0 Yes [id number] 1{tbl} Take 1 U nivers vitamin 8-04 tablet by ity of w/FA tablet 00:00: mouth in [place] 00 the Medical morning. Branch docusate 2021-0 Yes [id number] 200mg Take 2 Un ita 100 mg 8-04 capsules ity of capsule 00:00: by mouth [place] 00 once daily Medical as needed Branch for Constipati on. ferrous 2021-0 Yes [id number] 325mg Take 1 [facility] vers sulfate 325 8-04 tablet by ity of mg (65 mg 00:00: mouth in [place] iron[place] 00 the Medical tablet morning Branch and 1 tablet in the evening. ibuprofen 2021-0 Yes [id number] 600mg Take 1 U nivers 600 mg 8-04 tablet by ity of tablet 00:00: mouth [place] 00 every 6 Medical (six) Branch hours as needed (Pain). Take with food or milk. acetaminoph 2021-0 Yes [id number] 650mg Take 2 [facility] en 325 mg 8-04 tablets by ity of tablet 00:00: mouth [place] 00 every 6 Medical (six) Branch hours as needed for Pain (scale 1-3) or Pain (scale 4-6). 2021-0 Yes [id number] 1{tbl} Take 1 U nivers vitamin 8-04 tablet by ity of w/FA tablet 00:00: mouth in [place] 00 the Medical morning. Branch docusate 2021-0 Yes [id number] 200mg Take 2 Un ita 100 mg 8-04 capsules ity of capsule 00:00: by mouth [place] 00 once daily Medical as needed Branch for Constipati on. ferrous 2021-0 Yes [id number] 325mg Take 1 [facility] vers sulfate 325 8-04 tablet by ity of mg (65 mg 00:00: mouth [place] iron[place] 00 the Medical tablet morning Branch and 1 tablet in the evening. ibuprofen 2021-0 Yes [id number] 600mg Take 1 U nivers 600 mg 8-04 tablet by ity of tablet 00:00: mouth [place] 00 every 6 Medical (six) Branch hours as needed (Pain). Take with food or milk. acetaminoph 2021-0 Yes [id number] 650mg Take 2 [facility] en 325 mg 8-04 tablets by ity of tablet 00:00: mouth [place] 00 every 6 Medical (six) Branch hours as needed for Pain (scale 1-3) or Pain (scale 4-6). 2021-0 Yes [id number] 1{tbl} Take 1 U nivers vitamin 8-04 tablet by ity of w/FA tablet 00:00: mouth in [place] 00 the Medical morning. Branch docusate 0 Yes [id number] 200mg Take 2 Un ita 100 mg 8-04 capsules ity of capsule 00:00: by mouth [place] 00 once daily Medical as needed Branch for Constipati on. ferrous 2021-0 Yes [id number] 325mg Take 1 [facility] vers sulfate 325 8-04 tablet by ity of mg (65 mg 00:00: mouth [place] iron[place] 00 the Medical tablet morning Branch and 1 tablet in the evening. ibuprofen 0 Yes [id number] 600mg Take 1 U nivers 600 mg 8-04 tablet by ity of tablet 00:00: mouth [place] 00 every 6 Medical (six) Branch hours as needed (Pain). Take with food or milk. acetaminoph 0 Yes [id number] 650mg Take 2 [facility] en 325 mg 8-04 tablets by ity of tablet 00:00: mouth [place] 00 every 6 Medical (six) Branch hours as needed for Pain (scale 1-3) or Pain (scale 4-6). 2021-0 Yes [id number] 1{tbl} Take 1 U nivers vitamin 8-04 tablet by ity of w/FA tablet 00:00: mouth in [place] 00 the Medical morning. Branch docusate 0 Yes [id number] 200mg Take 2 Un ita 100 mg 8-04 capsules ity of capsule 00:00: by mouth [place] 00 once daily Medical as needed Branch for Constipati on. ferrous 2021-0 Yes [id number] 325mg Take 1 Uni vers sulfate 325 8-04 tablet by ity of mg (65 mg 00:00: mouth [place] iron[place] 00 the Medical tablet morning Branch and 1 tablet in the evening. ibuprofen 2021-0 Yes [id number] 600mg Take 1 U nivers 600 mg 8-04 tablet by ity of tablet 00:00: mouth [place] 00 every 6 Medical (six) Branch hours as needed (Pain). Take with food or milk. acetaminoph 0 Yes [id number] 650mg Take 2 [facility] en 325 mg 8-04 tablets by ity of tablet 00:00: mouth [place] 00 every 6 Medical (six) Branch hours as needed for Pain (scale 1-3) or Pain (scale 4-6). 0 Yes [id number] 1{tbl} Take 1 U nivers vitamin 8-04 tablet by ity of w/FA tablet 00:00: mouth in [place] 00 the Medical morning. Branch docusate 0 Yes [id number] 200mg Take 2 Un ita 100 mg 8-04 capsules ity of capsule 00:00: by mouth [place] 00 once daily Medical as needed Branch for Constipati on. ferrous 0 Yes [id number] 325mg Take 1 Uni vers sulfate 325 8-04 tablet by ity of mg (65 mg 00:00: mouth [place] iron[place] 00 the Medical tablet morning Branch and 1 tablet in the evening. ibuprofen Yes [id number] 600mg Take 1 U nivers 600 mg 8-04 tablet by ity of tablet 00:00: mouth [place] 00 every 6 Medical (six) Branch hours as needed (Pain). Take with food or milk. acetaminoph Yes [id number] 650mg Take 2 [facility] en 325 mg 8-04 tablets by ity of tablet 00:00: mouth [place] 00 every 6 Medical (six) Branch hours as needed for Pain (scale 1-3) or Pain (scale 4-6). 0 Yes [id number] 1{tbl} Take 1 U nivers vitamin 8-04 tablet by ity of w/FA tablet 00:00: mouth in [place] 00 the Medical morning. Branch docusate 0 Yes [id number] 200mg Take 2 Un ita 100 mg 8-04 capsules ity of capsule 00:00: by mouth [place] 00 once daily Medical as needed Branch for Constipati on. ferrous 0 Yes [id number] 325mg Take 1 Uni vers sulfate 325 8-04 tablet by ity of mg (65 mg 00:00: mouth [place] iron[place] 00 the Medical tablet morning Branch and 1 tablet in the evening. ibuprofen 0 Yes [id number] 600mg Take 1 U nivers 600 mg 8-04 tablet by ity of tablet 00:00: mouth [place] 00 every 6 Medical (six) Branch hours as needed (Pain). Take with food or milk. acetaminoph 2021-0 Yes [id number] 650mg Take 2 [facility] en 325 mg 8-04 tablets by ity of tablet 00:00: mouth [place] 00 every 6 Medical (six) Branch hours as needed for Pain (scale 1-3) or Pain (scale 4-6). 2021-0 Yes [id number] 1{tbl} Take 1 U nivers vitamin 8-04 tablet by ity of w/FA tablet 00:00: mouth in [place] 00 the Medical morning. Branch docusate 0 Yes [id number] 200mg Take 2 Un ita 100 mg 8-04 capsules ity of capsule 00:00: by mouth [place] 00 once daily Medical as needed Branch for Constipati on. ferrous 0 Yes [id number] 325mg Take 1 Uni vers sulfate 325 8-04 tablet by ity of mg (65 mg 00:00: mouth in [place] iron[place] 00 the Medical tablet morning Branch and 1 tablet in the evening. ibuprofen 0 Yes [id number] 600mg Take 1 U nivers 600 mg 8-04 tablet by ity of tablet 00:00: mouth [place] 00 every 6 Medical (six) Branch hours as needed (Pain). Take with food or milk. acetaminoph 0 Yes [id number] 650mg Take 2 [facility] en 325 mg 8-04 tablets by ity of tablet 00:00: mouth [place] 00 every 6 Medical (six) Branch hours as needed for Pain (scale 1-3) or Pain (scale 4-6). 0 Yes [id number] 1{tbl} Take 1 U nivers vitamin 8-04 tablet by ity of w/FA tablet 00:00: mouth in [place] 00 the Medical morning. Branch docusate 0 Yes [id number] 200mg Take 2 Un ita 100 mg 8-04 capsules ity of capsule 00:00: by mouth [place] 00 once daily Medical as needed Branch for Constipati on. ferrous 2021-0 Yes [id number] 325mg Take 1 Uni vers sulfate 325 8-04 tablet by ity of mg (65 mg 00:00: mouth in [place] iron[place] 00 the Medical tablet morning Branch and 1 tablet in the evening. ibuprofen 2021-0 Yes [id number] 600mg Take 1 U nivers 600 mg 8-04 tablet by ity of tablet 00:00: mouth [place] 00 every 6 Medical (six) Branch hours as needed (Pain). Take with food or milk. acetaminoph 0 Yes [id number] 650mg Take 2 [facility] en 325 mg 8-04 tablets by ity of tablet 00:00: mouth [place] 00 every 6 Medical (six) Branch hours as needed for Pain (scale 1-3) or Pain (scale 4-6). 2021-0 Yes [id number] 1{tbl} Take 1 U nivers vitamin 8-04 tablet by ity of w/FA tablet 00:00: mouth in [place] 00 the Medical morning. Branch docusate 0 Yes [id number] 200mg Take 2 Un ita 100 mg 8-04 capsules [facility] of capsule 00:00: by mouth [place] 00 once daily Medical as needed Branch for Constipati on. ferrous 0 Yes [id number] 325mg Take 1 [facility] vers sulfate 325 8-04 tablet by [facility] mg (65 mg 00:00: mouth [place] [facility] 00 the Medical tablet morning Branch and 1 tablet in the evening. ibuprofen 0 Yes [id number] 600mg Take 1 [facility] nivers 600 mg 8-04 tablet by [facility] of tablet 00:00: mouth [place] 00 every 6 Medical (six) Branch hours as needed (Pain). Take with food or milk. acetaminoph 0 Yes [id number] 650mg Take 2 [facility] en 325 mg 8-04 tablets by [facility] of tablet 00:00: mouth [place] 00 every 6 Medical (six) Branch hours as needed for Pain (scale 1-3) or Pain (scale 4-6). 2021-0 Yes [id number] 1{tbl} Take 1 [facility] nivers vitamin 8-04 tablet by [facility] of w/FA tablet 00:00: mouth in [place] 00 the Medical morning. Branch docusate 0 Yes [id number] 200mg Take 2 Un ita 100 mg 8-04 capsules ity of capsule 00:00: by mouth [place] 00 once daily Medical as needed Branch for Constipati on. ferrous 2021-0 Yes [id number] 325mg Take 1 [facility] vers sulfate 325 8-04 tablet by [facility] mg (65 mg 00:00: mouth [place] [facility] 00 the Medical tablet morning Branch and 1 tablet in the evening. ibuprofen 2021-0 Yes [id number] 600mg Take 1 [facility] nivers 600 mg 8-04 tablet by [facility] of tablet 00:00: mouth [place] 00 every 6 Medical (six) Branch hours as needed (Pain). Take with food or milk. acetaminoph 2021-0 Yes [id number] 650mg Take 2 [facility] en 325 mg 8-04 tablets by [facility] of tablet 00:00: mouth [place] 00 every 6 Medical (six) Branch hours as needed for Pain (scale 1-3) or Pain (scale 4-6). 2021-0 Yes [id number] 1{tbl} Take 1 [facility] nivers vitamin 8-04 tablet by [facility] of w/FA tablet 00:00: mouth in [place] 00 the Medical morning. Branch docusate 0 Yes [id number] 200mg Take 2 Un ita 100 mg 8-04 capsules ity of capsule 00:00: by mouth [place] 00 once daily Medical as needed Branch for Constipati on. ferrous 2021-0 Yes [id number] 325mg Take 1 [facility] vers sulfate 325 8-04 tablet by [facility] mg (65 mg 00:00: mouth [place] [facility] 00 the Medical tablet morning Branch and 1 tablet in the evening. ibuprofen 2021-0 Yes [id number] 600mg Take 1 [facility] nivers 600 mg 8-04 tablet by [facility] of tablet 00:00: mouth [place] 00 every 6 Medical (six) Branch hours as needed (Pain). Take with food or milk. acetaminoph 2021-0 Yes [id number] 650mg Take 2 [facility] en 325 mg 8-04 tablets by [facility] of tablet 00:00: mouth [place] 00 every 6 Medical (six) Branch hours as needed for Pain (scale 1-3) or Pain (scale 4-6). 2021-0 Yes [id number] 1{tbl} Take 1 [facility] nivers vitamin 8-04 tablet by [facility] of w/FA tablet 00:00: mouth in [place] 00 the Medical morning. Branch docusate 2021-0 Yes [id number] 200mg Take 2 [facility] ita 100 mg 8-04 capsules ity of capsule 00:00: by mouth [place] 00 once daily Medical as needed Branch for Constipati on. ferrous 2021-0 Yes [id number] 325mg Take 1 [facility] vers sulfate 325 8-04 tablet by [facility] mg (65 mg 00:00: mouth [place] [facility] 00 the Medical tablet morning Branch and 1 tablet in the evening. ibuprofen 2021-0 Yes [id number] 600mg Take 1 [facility] nivers 600 mg 8-04 tablet by [facility] of tablet 00:00: mouth [place] 00 every 6 Medical (six) Branch hours as needed (Pain). Take with food or milk. acetaminoph 0 Yes [id number] 650mg Take 2 [facility] en 325 mg 8-04 tablets by [facility] of tablet 00:00: mouth [place] 00 every 6 Medical (six) Branch hours as needed for Pain (scale 1-3) or Pain (scale 4-6). 2021-0 Yes [id number] 1{tbl} Take 1 [facility] nivers vitamin 8-04 tablet by [facility] of w/FA tablet 00:00: mouth in [place] 00 the Medical morning. Branch docusate 0 Yes [id number] 200mg Take 2 [facility] ita 100 mg 8-04 capsules ity of capsule 00:00: by mouth [place] 00 once daily Medical as needed Branch for Constipati on. ferrous 0 Yes [id number] 325mg Take 1 [facility] vers sulfate 325 8-04 tablet by [facility] mg (65 mg 00:00: mouth [place] [facility] 00 the Medical tablet morning Branch and 1 tablet in the evening. ibuprofen 0 Yes [id number] 600mg Take 1 [facility] nivers 600 mg 8-04 tablet by [facility] of tablet 00:00: mouth [place] 00 every 6 Medical (six) Branch hours as needed (Pain). Take with food or milk. acetaminoph 0 Yes [id number] 650mg Take 2 [facility] en 325 mg 8-04 tablets by [facility] of tablet 00:00: mouth [place] 00 every 6 Medical (six) Branch hours as needed for Pain (scale 1-3) or Pain (scale 4-6). 2021-0 Yes [id number] 1{tbl} Take 1 [facility] nivers vitamin 8-04 tablet by [facility] of w/FA tablet 00:00: mouth in [place] 00 the Medical morning. Branch docusate 0 Yes [id number] 200mg Take 2 [facility] ita 100 mg 8-04 capsules ity of capsule 00:00: by mouth [place] 00 once daily Medical as needed Branch for Constipati on. ferrous 2021-0 Yes [id number] 325mg Take 1 [facility] vers sulfate 325 8-04 tablet by [facility] mg (65 mg 00:00: mouth [place] [facility] 00 the Medical tablet morning Branch and 1 tablet in the evening. ibuprofen 2021-0 Yes [id number] 600mg Take 1 [facility] nivers 600 mg 8-04 tablet by [facility] of tablet 00:00: mouth [place] 00 every 6 Medical (six) Branch hours as needed (Pain). Take with food or milk. acetaminoph 2021-0 Yes [id number] 650mg Take 2 [facility] en 325 mg 8-04 tablets by [facility] of tablet 00:00: mouth [place] 00 every 6 Medical (six) Branch hours as needed for Pain (scale 1-3) or Pain (scale 4-6). 2021-0 Yes [id number] 1{tbl} Take 1 [facility] nivers vitamin 8-04 tablet by [facility] of w/FA tablet 00:00: mouth in [place] 00 the Medical morning. Branch docusate 0 Yes [id number] 200mg Take 2 [facility] ita 100 mg 8-04 capsules ity of capsule 00:00: by mouth [place] 00 once daily Medical as needed Branch for Constipati on. ibuprofen 2021-0 Yes [id number] 600mg Take 1 [facility] nivers 600 mg 8-04 tablet by [facility] of tablet 00:00: mouth [place] 00 every 6 Medical (six) Branch hours as needed (Pain). Take with food or milk. acetaminoph 2021-0 Yes [id number] 650mg Take 2 [facility] en 325 mg 8-04 tablets by [facility] of tablet 00:00: mouth [place] 00 every 6 Medical (six) Branch hours as needed for Pain (scale 1-3) or Pain (scale 4-6). 2021-0 Yes [id number] 1{tbl} Take 1 [facility] nivers vitamin 8-04 tablet by [facility] of w/FA tablet 00:00: mouth in [place] 00 the Medical morning. Branch docusate 2021-0 Yes [id number] 200mg Take 2 [facility] ita 100 mg 8-04 capsules ity of capsule 00:00: by mouth [place] 00 once daily Medical as needed Branch for Constipati on. ibuprofen 2021-0 Yes [id number] 600mg Take 1 [facility] nivers 600 mg 8-04 tablet by [facility] of tablet 00:00: mouth [place] 00 every 6 Medical (six) Branch hours as needed (Pain). Take with food or milk. acetaminoph 0 Yes [id number] 650mg Take 2 [facility] en 325 mg 8-04 tablets by [facility] of tablet 00:00: mouth [place] 00 every 6 Medical (six) Branch hours as needed for Pain (scale 1-3) or Pain (scale 4-6). 0 Yes [id number] 1{tbl} Take 1 [facility] nivers vitamin 8-04 tablet by [facility] of w/FA tablet 00:00: mouth in [place] 00 the Medical morning. Branch docusate 0 Yes [id number] 200mg Take 2 [facility] ita 100 mg 8-04 capsules ity of capsule 00:00: by mouth [place] 00 once daily Medical as needed Branch for Constipati on. ibuprofen 0 Yes [id number] 600mg Take 1 [facility] nivers 600 mg 8-04 tablet by [facility] of tablet 00:00: mouth [place] 00 every 6 Medical (six) Branch hours as needed (Pain). Take with food or milk. acetaminoph 0 Yes [id number] 650mg Take 2 [facility] en 325 mg 8-04 tablets by [facility] of tablet 00:00: mouth [place] 00 every 6 Medical (six) Branch hours as needed for Pain (scale 1-3) or Pain (scale 4-6). 0 Yes [id number] 1{tbl} Take 1 [facility] nivers vitamin 8-04 tablet by [facility] of w/FA tablet 00:00: mouth in [place] 00 the Medical morning. Branch docusate 0 Yes [id number] 200mg Take 2 [facility] ita 100 mg 8-04 capsules ity of capsule 00:00: by mouth [place] 00 once daily Medical as needed Branch for Constipati on. ibuprofen 0 Yes [id number] 600mg Take 1 [facility] nivers 600 mg 8-04 tablet by [facility] of tablet 00:00: mouth [place] 00 every 6 Medical (six) Branch hours as needed (Pain). Take with food or milk. acetaminoph 2021-0 Yes [id number] 650mg Take 2 [facility] en 325 mg 8-04 tablets by [facility] of tablet 00:00: mouth [place] 00 every 6 Medical (six) Branch hours as needed for Pain (scale 1-3) or Pain (scale 4-6). 2021-0 Yes [id number] 1{tbl} Take 1 [facility] nivers vitamin 8-04 tablet by [facility] of w/FA tablet 00:00: mouth in [place] 00 the Medical morning. Branch docusate 2021-0 Yes [id number] 200mg Take 2 [facility] ita 100 mg 8-04 capsules ity of capsule 00:00: by mouth [place] 00 once daily Medical as needed Branch for Constipati on. ibuprofen 2021-0 Yes [id number] 600mg Take 1 [facility] nivers 600 mg 8-04 tablet by [facility] of tablet 00:00: mouth [place] 00 every 6 Medical (six) Branch hours as needed (Pain). Take with food or milk. acetaminoph 0 Yes [id number] 650mg Take 2 [facility] en 325 mg 8-04 tablets by [facility] of tablet 00:00: mouth [place] 00 every 6 Medical (six) Branch hours as needed for Pain (scale 1-3) or Pain (scale 4-6). 2021-0 Yes [id number] 1{tbl} Take 1 [facility] nivers vitamin 8-04 tablet by [facility] of w/FA tablet 00:00: mouth in [place] 00 the Medical morning. Branch docusate 0 Yes [id number] 200mg Take 2 [facility] ita 100 mg 8-04 capsules ity of capsule 00:00: by mouth [place] 00 once daily Medical as needed Branch for Constipati on. ibuprofen 2021-0 Yes [id number] 600mg Take 1 [facility] nivers 600 mg 8-04 tablet by [facility] of tablet 00:00: mouth [place] 00 every 6 Medical (six) Branch hours as needed (Pain). Take with food or milk. acetaminoph 2021-0 Yes [id number] 650mg Take 2 [facility] en 325 mg 8-04 tablets by [facility] of tablet 00:00: mouth [place] 00 every 6 Medical (six) Branch hours as needed for Pain (scale 1-3) or Pain (scale 4-6). 2021-0 Yes [id number] 1{tbl} Take 1 [facility] nivers vitamin 8-04 tablet by [facility] of w/FA tablet 00:00: mouth in [place] 00 the Medical morning. Branch docusate 0 Yes [id number] 200mg Take 2 [facility] ita 100 mg 8-04 capsules ity of capsule 00:00: by mouth [place] 00 once daily Medical as needed Branch for Constipati on. ibuprofen 2021-0 Yes [id number] 600mg Take 1 [facility] nivers 600 mg 8-04 tablet by [facility] of tablet 00:00: mouth [place] 00 every 6 Medical (six) Branch hours as needed (Pain). Take with food or milk. acetaminoph 2021-0 Yes [id number] 650mg Take 2 [facility] en 325 mg 8-04 tablets by [facility] of tablet 00:00: mouth [place] 00 every 6 Medical (six) Branch hours as needed for Pain (scale 1-3) or Pain (scale 4-6). 2021-0 Yes [id number] 1{tbl} Take 1 [facility] nivers vitamin 8-04 tablet by [facility] of w/FA tablet 00:00: mouth in [place] 00 the Medical morning. Branch docusate 0 Yes [id number] 200mg Take 2 [facility] ita 100 mg 8-04 capsules ity of capsule 00:00: by mouth [place] 00 once daily Medical as needed Branch for Constipati on. ibuprofen 2021-0 Yes [id number] 600mg Take 1 [facility] nivers 600 mg 8-04 tablet by [facility]y of tablet 00:00: mouth [place] 00 every 6 Medical (six) Branch hours as needed (Pain). Take with food or milk. acetaminoph 2021-0 Yes [id number] 650mg Take 2 [facility] en 325 mg 8-04 tablets by [facility] of tablet 00:00: mouth [place] 00 every 6 Medical (six) Branch hours as needed for Pain (scale 1-3) or Pain (scale 4-6). 2021-0 Yes [id number] 1{tbl} Take 1 [facility] nivers vitamin 8-04 tablet by [facility] of w/FA tablet 00:00: mouth in [place] 00 the Medical morning. Branch docusate 2021-0 Yes [id number] 200mg Take 2 [facility] ita 100 mg 8-04 capsules ity of capsule 00:00: by mouth [place] 00 once daily Medical as needed Branch for Constipati on. ibuprofen 2021-0 Yes [id number] 600mg Take 1 [facility] nivers 600 mg 8-04 tablet by [facility]y of tablet 00:00: mouth [place] 00 every 6 Medical (six) Branch hours as needed (Pain). Take with food or milk. acetaminoph 2021-0 Yes [id number] 650mg Take 2 [facility] en 325 mg 8-04 tablets by [facility]y of tablet 00:00: mouth [place] 00 every 6 Medical (six) Branch hours as needed for Pain (scale 1-3) or Pain (scale 4-6). 2021-0 Yes [id number] 1{tbl} Take 1 [facility] nivers vitamin 8-04 tablet by [facility] of w/FA tablet 00:00: mouth in [place] 00 the Medical morning. Branch docusate 0 Yes [id number] 200mg Take 2 [facility] ita 100 mg 8-04 capsules ity of capsule 00:00: by mouth [place] 00 once daily Medical as needed Branch for Constipati on. ibuprofen 2021-0 Yes [id number] 600mg Take 1 [facility] nivers 600 mg 8-04 tablet by ity of tablet 00:00: mouth [place] 00 every 6 Medical (six) Branch hours as needed (Pain). Take with food or milk. acetaminoph 0 Yes [id number] 650mg Take 2 [facility] en 325 mg 8-04 tablets by ity of tablet 00:00: mouth [place] 00 every 6 Medical (six) Branch hours as needed for Pain (scale 1-3) or Pain (scale 4-6). 2021-0 Yes [id number] 1{tbl} Take 1 [facility] nivers vitamin 8-04 tablet by [facility] of w/FA tablet 00:00: mouth in [place] 00 the Medical morning. Branch docusate 2021-0 Yes [id number] 200mg Take 2 [facility] ita 100 mg 8-04 capsules ity of capsule 00:00: by mouth [place] 00 once daily Medical as needed Branch for Constipati on. ibuprofen 2021-0 Yes [id number] 600mg Take 1 [facility] nivers 600 mg 8-04 tablet by ity of tablet 00:00: mouth [place] 00 every 6 Medical (six) Branch hours as needed (Pain). Take with food or milk. acetaminoph 2021-0 Yes [id number] 650mg Take 2 [facility] en 325 mg 8-04 tablets by ity of tablet 00:00: mouth [place] 00 every 6 Medical (six) Branch hours as needed for Pain (scale 1-3) or Pain (scale 4-6). 2021-0 Yes [id number] 1{tbl} Take 1 [facility] nivers vitamin 8-04 tablet by [facility] of w/FA tablet 00:00: mouth in [place] 00 the Medical morning. Branch docusate 2021-0 Yes [id number] 200mg Take 2 [facility] ita 100 mg 8-04 capsules ity of capsule 00:00: by mouth [place] 00 once daily Medical as needed Branch for Constipati on. ibuprofen 2021-0 Yes [id number] 600mg Take 1 [facility] nivers 600 mg 8-04 tablet by ity of tablet 00:00: mouth [place] 00 every 6 Medical (six) Branch hours as needed (Pain). Take with food or milk. acetaminoph 0 Yes [id number] 650mg Take 2 [facility] en 325 mg 8-04 tablets by ity of tablet 00:00: mouth [place] 00 every 6 Medical (six) Branch hours as needed for Pain (scale 1-3) or Pain (scale 4-6). 0 Yes [id number] 1{tbl} Take 1 [facility] nivers vitamin 8-04 tablet by [facility] of w/FA tablet 00:00: mouth in [place] 00 the Medical morning. Branch docusate 0 Yes [id number] 200mg Take 2 [facility] ita 100 mg 8-04 capsules ity of capsule 00:00: by mouth [place] 00 once daily Medical as needed Branch for Constipati on. ibuprofen 0 Yes [id number] 600mg Take 1 [facility] nivers 600 mg 8-04 tablet by ity of tablet 00:00: mouth [place] 00 every 6 Medical (six) Branch hours as needed (Pain). Take with food or milk. acetaminoph 0 Yes [id number] 650mg Take 2 [facility] en 325 mg 8-04 tablets by ity of tablet 00:00: mouth [place] 00 every 6 Medical (six) Branch hours as needed for Pain (scale 1-3) or Pain (scale 4-6). 2021-0 Yes [id number] 1{tbl} Take 1 [facility] nivers vitamin 8-04 tablet by [facility] of w/FA tablet 00:00: mouth in [place] 00 the Medical morning. Branch docusate 0 Yes [id number] 200mg Take 2 [facility] ita 100 mg 8-04 capsules ity of capsule 00:00: by mouth [place] 00 once daily Medical as needed Branch for Constipati on. acetaminoph 0 Yes [id number] 650mg Take 2 [facility] en 325 mg 8-04 tablets by ity of tablet 00:00: mouth [place] 00 every 6 Medical (six) Branch hours as needed for Pain (scale 1-3) or Pain (scale 4-6). 0 Yes [id number] 1{tbl} Take 1 [facility] nivers vitamin 8-04 tablet by [facility] of w/FA tablet 00:00: mouth in [place] 00 the Medical morning. Branch docusate 0 Yes [id number] 200mg Take 2 [facility] ita 100 mg 8-04 capsules ity of capsule 00:00: by mouth [place] 00 once daily Medical as needed Branch for Constipati on. acetaminoph 0 Yes [id number] 650mg Take 2 [facility] en 325 mg 8-04 tablets by ity of tablet 00:00: mouth [place] 00 every 6 Medical (six) Branch hours as needed for Pain (scale 1-3) or Pain (scale 4-6). Yes [id number] 1{tbl} Take 1 [facility] vitamin 8-04 tablet by [facility] of w/FA tablet 00:00: mouth in [place] 00 the Medical morning. Branch docusate 0 Yes [id number] 200mg Take 2 [facility] ita 100 mg 8-04 capsules ity of capsule 00:00: by mouth [place] 00 once daily Medical as needed Branch for Constipati on. acetaminoph 0 Yes [id number] 650mg Take 2 [facility] en 325 mg 8-04 tablets by ity of tablet 00:00: mouth [place] 00 every 6 Medical (six) Branch hours as needed for Pain (scale 1-3) or Pain (scale 4-6). Yes [id number] 1{tbl} Take 1 [facility] vitamin 8-04 tablet by [facility] of w/FA tablet 00:00: mouth in [place] 00 the Medical morning. Branch docusate 0 Yes [id number] 200mg Take 2 [facility] 100 mg 8-04 capsules ity of capsule 00:00: by mouth [place] 00 once daily Medical as needed Branch for Constipati on. acetaminoph 0 Yes [id number] 650mg Take 2 [facility] en 325 mg 8-04 tablets by ity of tablet 00:00: mouth [place] 00 every 6 Medical (six) Branch hours as needed for Pain (scale 1-3) or Pain (scale 4-6). 2021-0 Yes [id number] 1{tbl} Take 1 [facility] vitamin 8-04 tablet by [facility] of w/FA tablet 00:00: mouth in [place] 00 the Medical morning. Branch docusate 0 Yes [id number] 200mg Take 2 [facility] 100 mg 8-04 capsules ity of capsule 00:00: by mouth [place] 00 once daily Medical as needed Branch for Constipati on. acetaminoph 0 Yes [id number] 650mg Take 2 [facility] en 325 mg 8-04 tablets by ity of tablet 00:00: mouth [place] 00 every 6 Medical (six) Branch hours as needed for Pain (scale 1-3) or Pain (scale 4-6). 2021-0 Yes [id number] 1{tbl} Take 1 [facility] vitamin 8-04 tablet by [facility] of w/FA tablet 00:00: mouth in [place] 00 the Medical morning. Branch docusate 0 Yes [id number] 200mg Take 2 [facility] 100 mg 8-04 capsules ity of capsule 00:00: by mouth [place] 00 once daily Medical as needed Branch for Constipati on. acetaminoph 0 Yes [id number] 650mg Take 2 [facility] en 325 mg 8-04 tablets by ity of tablet 00:00: mouth [place] 00 every 6 Medical (six) Branch hours as needed for Pain (scale 1-3) or Pain (scale 4-6). 2021-0 Yes [id number] 1{tbl} Take 1 [facility] vitamin 8-04 tablet by [facility] of w/FA tablet 00:00: mouth in [place] 00 the Medical morning. Branch docusate 0 Yes [id number] 200mg Take 2 [facility]a 100 mg 8-04 capsules ity of capsule 00:00: by mouth [place] 00 once daily Medical as needed Branch for Constipati on. acetaminoph 2021-0 Yes [id number] 650mg Take 2 [facility] en 325 mg 8-04 tablets by ity of tablet 00:00: mouth [place] 00 every 6 Medical (six) Branch hours as needed for Pain (scale 1-3) or Pain (scale 4-6). 2022-0 Yes [id number] 1{tbl} Take 1 [facility] vitamin 8-04 tablet by [facility] of w/FA tablet 00:00: mouth in [place] 00 the Medical morning. Branch docusate 0 Yes [id number] 200mg Take 2 [facility] 100 mg 8-04 capsules ity of capsule 00:00: by mouth [place] 00 once daily Medical as needed Branch for Constipati on. acetaminoph 0 Yes [id number] 650mg Take 2 [facility] en 325 mg 8-04 tablets by ity of tablet 00:00: mouth [place] 00 every 6 Medical (six) Branch hours as needed for Pain (scale 1-3) or Pain (scale 4-6). 0 Yes [id number] 1{tbl} Take 1 [facility] vitamin 8-04 tablet by [facility] of w/FA tablet 00:00: mouth in [place] 00 the Medical morning. Branch docusate Yes [id number] 200mg Take 2 [facility] ita 100 mg 8-04 capsules ity of capsule 00:00: by mouth [place] 00 once daily Medical as needed Branch for Constipati on. acetaminoph Yes [id number] 650mg Take 2 [facility] en 325 mg 8-04 tablets by [facility]y of tablet 00:00: mouth [place] 00 every 6 Medical (six) Branch hours as needed for Pain (scale 1-3) or Pain (scale 4-6). 0 Yes [id number] 1{tbl} Take 1 [facility] vitamin 8-04 tablet by [facility] of w/FA tablet 00:00: mouth in [place] 00 the Medical morning. Branch docusate 0 Yes [id number] 200mg Take 2 [facility] 100 mg 8-04 capsules ity of capsule 00:00: by mouth [place] 00 once daily Medical as needed Branch for Constipati on. acetaminoph 0 Yes [id number] 650mg Take 2 [facility] en 325 mg 8-04 tablets by ity of tablet 00:00: mouth [place] 00 every 6 Medical (six) Branch hours as needed for Pain (scale 1-3) or Pain (scale 4-6). 2021-0 Yes [id number] 1{tbl} Take 1 [facility] vitamin 8-04 tablet by [facility] of w/FA tablet 00:00: mouth in [place] 00 the Medical morning. Branch docusate 0 Yes [id number] 200mg Take 2 [facility] 100 mg 8-04 capsules ity of capsule 00:00: by mouth [place] 00 once daily Medical as needed Branch for Constipati on. acetaminoph 0 Yes [id number] 650mg Take 2 [facility] en 325 mg 8-04 tablets by ity of tablet 00:00: mouth [place] 00 every 6 Medical (six) Branch hours as needed for Pain (scale 1-3) or Pain (scale 4-6). 0 Yes [id number] 1{tbl} Take 1 [facility] vitamin 8-04 tablet by [facility] of w/FA tablet 00:00: mouth in [place] 00 the Medical morning. Branch docusate 0 Yes [id number] 200mg Take 2 [facility] 100 mg 8-04 capsules ity of capsule 00:00: by mouth [place] 00 once daily Medical as needed Branch for Constipati on. acetaminoph 0 Yes [id number] 650mg Take 2 [facility] en 325 mg 8-04 tablets by [facility]y of tablet 00:00: mouth [place] 00 every 6 Medical (six) Branch hours as needed for Pain (scale 1-3) or Pain (scale 4-6). 0 Yes [id number] 1{tbl} Take 1 [facility] vitamin 8-04 tablet by [facility] of w/FA tablet 00:00: mouth in [place] 00 the Medical morning. Branch docusate 0 Yes [id number] 200mg Take 2 [facility] 100 mg 8-04 capsules ity of capsule 00:00: by mouth [place] 00 once daily Medical as needed Branch for Constipati on. acetaminoph 0 Yes [id number] 650mg Take 2 [facility] en 325 mg 8-04 tablets by ity of tablet 00:00: mouth [place] 00 every 6 Medical (six) Branch hours as needed for Pain (scale 1-3) or Pain (scale 4-6). 2021-0 Yes [id number] 1{tbl} Take 1 [facility] vitamin 8-04 tablet by [facility] of w/FA tablet 00:00: mouth in [place] 00 the Medical morning. Branch docusate 0 Yes [id number] 200mg Take 2 [facility] 100 mg 8-04 capsules ity of capsule 00:00: by mouth [place] 00 once daily Medical as needed Branch for Constipati on. acetaminoph 0 Yes [id number] 650mg Take 2 [facility] en 325 mg 8-04 tablets by ity of tablet 00:00: mouth [place] 00 every 6 Medical (six) Branch hours as needed for Pain (scale 1-3) or Pain (scale 4-6). 0 Yes [id number] 1{tbl} Take 1 [facility] vitamin 8-04 tablet by [facility] of w/FA tablet 00:00: mouth in [place] 00 the Medical morning. Branch docusate 0 Yes [id number] 200mg Take 2 [facility] 100 mg 8-04 capsules ity of capsule 00:00: by mouth [place] 00 once daily Medical as needed Branch for Constipati on. acetaminoph 0 Yes [id number] 650mg Take 2 [facility] 325 mg 8-04 tablets by [facility]y of tablet 00:00: mouth [place] 00 every 6 Medical (six) Branch hours as needed for Pain (scale 1-3) or Pain (scale 4-6). 0 Yes [id number] 1{tbl} Take 1 [facility] vitamin 8-04 tablet by [facility] of w/FA tablet 00:00: mouth in [place] 00 the Medical morning. Branch docusate 0 Yes [id number] 200mg Take 2 [facility] 100 mg 8-04 capsules ity of capsule 00:00: by mouth [place] 00 once daily Medical as needed Branch for Constipati on. acetaminoph 0 Yes [id number] 650mg Take 2 [facility] 325 mg 8-04 tablets by [facility]y of tablet 00:00: mouth [place] 00 every 6 Medical (six) Branch hours as needed for Pain (scale 1-3) or Pain (scale 4-6). 0 Yes [id number] 1{tbl} Take 1 [facility] vitamin 8-04 tablet by [facility] of w/FA tablet 00:00: mouth in [place] 00 the Medical morning. Branch docusate 0 Yes [id number] 200mg Take 2 [facility] 100 mg 8-04 capsules ity of capsule 00:00: by mouth [place] 00 once daily Medical as needed Branch for Constipati on. acetaminoph 0 Yes [id number] 650mg Take 2 [facility] 325 mg 8-04 tablets by ity of tablet 00:00: mouth [place] 00 every 6 Medical (six) Branch hours as needed for Pain (scale 1-3) or Pain (scale 4-6). 2021-0 Yes [id number] 1{tbl} Take 1 [facility] vitamin 8-04 tablet by [facility] of w/FA tablet 00:00: mouth in [place] 00 the Medical morning. Branch docusate 0 Yes [id number] 200mg Take 2 [facility] 100 mg 8-04 capsules ity of capsule 00:00: by mouth [place] 00 once daily Medical as needed Branch for Constipati on. acetaminoph 0 Yes [id number] 650mg Take 2 [facility] 325 mg 8-04 tablets by [facility]y of tablet 00:00: mouth [place] 00 every 6 Medical (six) Branch hours as needed for Pain (scale 1-3) or Pain (scale 4-6). Yes [id number] 1{tbl} Take 1 [facility] vitamin 8-04 tablet by [facility] of w/FA tablet 00:00: mouth in [place] 00 the Medical morning. Branch docusate 0 Yes [id number] 200mg Take 2 [facility] 100 mg 8-04 capsules ity of capsule 00:00: by mouth [place] 00 once daily Medical as needed Branch for Constipati on. acetaminoph 0 Yes [id number] 650mg Take 2 [facility] 325 mg 8-04 tablets by ity of tablet 00:00: mouth [place] 00 every 6 Medical (six) Branch hours as needed for Pain (scale 1-3) or Pain (scale 4-6). 0 Yes [id number] 1{tbl} Take 1 [facility] vitamin 8-04 tablet by [facility] of w/FA tablet 00:00: mouth in [place] 00 the Medical morning. Branch docusate 0 Yes [id number] 200mg Take 2 [facility] 100 mg 8-04 capsules ity of capsule 00:00: by mouth [place] 00 once daily Medical as needed Branch for Constipati on. acetaminoph 0 Yes [id number] 650mg Take 2 [facility] 325 mg 8-04 tablets by ity of tablet 00:00: mouth [place] 00 every 6 Medical (six) Branch hours as needed for Pain (scale 1-3) or Pain (scale 4-6). 2021-0 Yes [id number] 1{tbl} Take 1 [facility] vitamin 8-04 tablet by [facility] of w/FA tablet 00:00: mouth in [place] 00 the Medical morning. Branch docusate 0 Yes [id number] 200mg Take 2 [facility] 100 mg 8-04 capsules ity of capsule 00:00: by mouth [place] 00 once daily Medical as needed Branch for Constipati on. acetaminoph 0 Yes [id number] 650mg Take 2 [facility] en 325 mg 8-04 tablets by ity of tablet 00:00: mouth [place] 00 every 6 Medical (six) Branch hours as needed for Pain (scale 1-3) or Pain (scale 4-6). 2021-0 Yes [id number] 1{tbl} Take 1 U nivers vitamin 8-04 tablet by ity of w/FA tablet 00:00: mouth in [place] 00 the Medical morning. Branch docusate 0 Yes [id number] 200mg Take 2 Un ita 100 mg 8-04 capsules ity of capsule 00:00: by mouth [place] 00 once daily Medical as needed Branch for Constipati on. acetaminoph 0 Yes [id number] 650mg Take 2 [facility] en 325 mg 8-04 tablets by ity of tablet 00:00: mouth [place] 00 every 6 Medical (six) Branch hours as needed for Pain (scale 1-3) or Pain (scale 4-6). 2021-0 Yes [id number] 1{tbl} Take 1 U nivers vitamin 8-04 tablet by ity of w/FA tablet 00:00: mouth in [place] 00 the Medical morning. Branch docusate 0 Yes [id number] 200mg Take 2 Un ita 100 mg 8-04 capsules ity of capsule 00:00: by mouth [place] 00 once daily Medical as needed Branch for Constipati on. acetaminoph 2021-0 Yes [id number] 650mg Take 2 [facility] en 325 mg 8-04 tablets by ity of tablet 00:00: mouth [place] 00 every 6 Medical (six) Branch hours as needed for Pain (scale 1-3) or Pain (scale 4-6). 2021-0 Yes [id number] 1{tbl} Take 1 [facility] nivers vitamin 8-04 tablet by ity of w/FA tablet 00:00: mouth in [place] 00 the Medical morning. Branch docusate Yes [id number] 200mg Take 2 Un ita 100 mg 8-04 capsules ity of capsule 00:00: by mouth [place] 00 once daily Medical as needed Branch for Constipati on. acetaminoph Yes [id number] 650mg Take 2 [facility] en 325 mg 8-04 tablets by ity of tablet 00:00: mouth [place] 00 every 6 Medical (six) Branch hours as needed for Pain (scale 1-3) or Pain (scale 4-6). Yes [id number] 1{tbl} Take 1 [facility] nivers vitamin 8-04 tablet by ity of w/FA tablet 00:00: mouth in [place] 00 the Medical morning. Branch docusate Yes [id number] 200mg Take 2 Un ita 100 mg 8-04 capsules ity of capsule 00:00: by mouth [place] 00 once daily Medical as needed Branch for Constipati on. acetaminoph 2022- No [id number] 650mg Take 2 [facility] en 325 mg 8-04 08-15 tablets by ity of tablet 00:00: 00:00 mouth [place] 00 :00 every 6 Medical (six) Branch hours as needed for Pain (scale 1-3) or Pain (scale 4-6). 2022- No [id number] 1{tbl} Take 1 [facility] vitamin 8-04 08-15 tablet by ity of w/FA tablet 00:00: 00:00 mouth in [place] 00 :00 the Medical morning. Branch docusate 2022- No [id number] 200mg Take 2 U nivers 100 mg 8-04 08-15 capsules ity of capsule 00:00: 00:00 by mouth [place] 00 :00 once daily Medical as needed Branch for Constipati on. acetaminoph 2022- No [id number] 650mg Take 2 [facility] en 325 mg 8-04 08-15 tablets by ity of tablet 00:00: 00:00 mouth [place] 00 :00 every 6 Medical (six) Branch hours as needed for Pain (scale 1-3) or Pain (scale 4-6). 2022- No [id number] 1{tbl} Take 1 [facility] vitamin 09-28-15 tablet by ity of w/FA tablet 00:00: 00:00 mouth in [place] 00 :00 the Medical morning. Branch docusate 2022- No [id number] 200mg Take 2 U nivers 100 mg 09-28-15 capsules ity of capsule 00:00: 00:00 by mouth [place] 00 :00 once daily Medical as needed Branch for Constipati on. ibuprofen 2022- No [id number] 600mg Take 1 [facility] 600 mg 09-28-20 tablet by ity of tablet 00:00: 00:00 mouth [place] 00 :00 every 6 Medical (six) Branch hours as needed (Pain). Take with food or milk. ferrous 2022- No [id number] 325mg Take 1 Un ita sulfate 325 09-28 05-17 tablet by it y of mg (65 mg 00:00: 00:00 mouth in [place] iron) 00 :00 the Medical tablet morning Branch and 1 tablet in the evening. ferrous 2022- No [id number] 325mg Take 1 Un ita sulfate 325 09-28 05-17 tablet by it y of mg (65 mg 00:00: 00:00 mouth in [place] iron) 00 :00 the Medical tablet morning Branch and 1 tablet in the evening. Nitrofurant 2021- No [id number] 100mg Take 1 [facility] oin&Nit. 06-06 capsule by ity of Macrocryst 00:00: 00:00 mouth 2 [place] 100 mg 00 :00 (two) Medical capsule times Branch daily. famotidine 2021- No [id number] 20mg Take 1 [facility] (PEPCID) 20 06-06 tablet by it y of mg tablet 00:00: 00:[place] :[place] (two) Medical times Branch daily. metoclopram 2021- No [id number] 10mg Take 1 [facility] jacob HCl 10 06-06 tablet by ity of mg tablet 00:00: 00:00 mouth [place] 00 :00 every 6 Medical (six) Branch hours as needed for Nausea and Vomiting (N/V) or Gastroesop hageal reflux. Nitrofurant 2021- No [id number] 100mg Take 1 [facility] oin&Nit. 06-06 capsule by ity of Macrocryst 00:00: 00:00 mouth 2 [place] 100 mg 00 :00 (two) Medical capsule times Branch daily. famotidine 2021- No [id number] 20mg Take 1 [facility] (PEPCID) 20 06-06 tablet by it y of mg tablet 00:00: 00:00 mouth [place] :00 (two) Medical times Branch daily. metoclopram 2021- No [id number] 10mg Take 1 [facility] jacob HCl 10 06-06 tablet by ity of mg tablet 00:00: 00:00 mouth [place] 00 :00 every 6 Medical (six) Branch hours as needed for Nausea and Vomiting (N/V) or Gastroesop hageal reflux. aspirin 81 2021- No [id number] 81mg Take 1 [facility] mg EC 04-21 tablet by ity of tablet 00:00: 00:00 mouth [place] 00 :00 daily. Medical Branch aspirin 81 2021- No [id number] 81mg Take 1 [facility] mg EC 04-21- tablet by ity of tablet 00:00: 00:00 mouth [place] 00 :00 daily. Medical Branch aspirin 81 2021- No [id number] 81mg Take 1 [facility] mg EC 04-21- tablet by ity of tablet 00:00: 00:00 mouth [place] 00 :00 daily. Medical Branch ferrous 2021- No [id number] 325mg Take 1 Un ita sulfate 04-07 tablet by ity of (IRON, 00:00: 00:00 mouth 2 [place] FERROUS 00 :00 (two) Medical SULFATE,) times Branch 325 mg (65 daily. mg iron) tablet ferrous 2021- No [id number] 325mg Take 1 Un ita sulfate 04-07 tablet by ity of (IRON, 00:00: 00:00 mouth 2 [place] FERROUS 00 :00 (two) Medical SULFATE,) times Branch 325 mg (65 daily. mg iron) tablet ferrous 2021- No [id number] 325mg Take 1 Un ita sulfate 04-07 tablet by ity of (IRON, 00:00: 00:00 mouth 2 [place] FERROUS 00 :00 (two) Medical SULFATE,) times Branch 325 mg (65 daily. mg iron) tablet 2019-02- No [id number] 1{tbl} Take 1 [facility] vit w/iron 03-1512 tablet by ity of fumarate 00:00: 00:00 mouth [place] and FA 00 :00 daily. Medical ( Branch VITAMIN WITH MINERALS) tablet 2019-02- No [id number] 1{tbl} Take 1 [facility] vit w/iron 03-15 tablet by ity of fumarate 00:00: 00:00 mouth [place] and [place] 00 :00 daily. Medical ( Branch VITAMIN WITH MINERALS) tablet 2019-02 No [id number] 1{tbl} Take 1 [facility] vit w/iron 03-15 tablet by ity of fumarate 00:00: 00:00 mouth [place] and FA 00 :00 daily. Medical ( Branch VITAMIN WITH MINERALS) tablet Immunizations Ordered Filled Date Status Comments Source Immunization Name Immunization Name TDAP 2022-07-30 Completed [facility] of 00:00:00 [facility] TDAP 2022-07-30 Completed [facility] of 00:00:00 [facility] TDAP 2022-07-30 Completed [facility] of 00:00:00 [facility] TDAP 2022-07-30 Completed [facility] of 00:00:00 [facility] TDAP 2022-07-30 Completed [facility] of 00:00:00 [facility] TDAP 2022-07-30 Completed [facility] of 00:00:00 [facility] TDAP 2022-07-30 Completed University of 00:00:00 [facility] TDAP 2022-07-30 Completed University of 00:00:00 [facility] TDAP 2022-07-30 Completed University of 00:00:00 [facility] TDAP 2022-07-30 Completed University of 00:00:00 [facility] TDAP 2022-07-30 Completed University of 00:00:00 [facility] TDAP 2022-07-30 Completed University of 00:00:00 [facility] TDAP 2022-07-30 Completed [facility] of 00:00:00 [facility] TDAP 2022-07-30 Completed [facility] of 00:00:00 [place] [facility] TDAP 2022-07-30 Completed [facility] 00:00:00 [place] [facility] TDAP 2022-07-30 Completed [facility] of 00:00:00 [place] [facility] TDAP 2022-07-30 Completed [facility] 00:00:00 [place] [facility] TDAP 2022-07-30 Completed [facility] of 00:00:00 [place] [facility] TDAP 2022-07-30 Completed [facility] 00:00:00 [place] [facility] TDAP 2022-07-30 Completed [facility] of 00:00:00 [place] [facility] TDAP 2022-07-30 Completed [facility] of 00:00:00 [place] [facility] TDAP 2022-07-30 Completed [facility] of 00:00:00 [place] [facility] TDAP 2022-07-30 Completed [facility] of 00:00:00 [place] [facility] TDAP 2022-07-30 Completed University of 00:00:00 [facility] TDAP 2022-07-30 Completed University of 00:00:00 [facility] TDAP 2022-07-30 Completed University of 00:00:00 [facility] TDAP 2022-07-30 Completed University of 00:00:00 [facility] TDAP 2022-07-30 Completed University of 00:00:00 [facility] TDAP 2022-07-30 Completed University of 00:00:00 [facility] TDAP 2022-07-30 Completed University of 00:00:00 [facility] TDAP 2022-07-30 Completed University of 00:00:00 [facility] TDAP 2022-07-30 Completed University of 00:00:00 [place] [facility] TDAP 2022-07-30 Completed University of 00:00:00 [facility] TDAP 2022-07-30 Completed University of 00:00:00 [facility] TDAP 2021-08-03 Completed University of 00:00:00 [facility] TDAP 2021-08-03 Completed University of 00:00:00 [facility] TDAP 2021-08-03 Completed University of 00:00:00 [facility] TDAP 2021-08-03 Completed University of 00:00:00 [facility] TDAP 2021-08-03 Completed University of 00:00:00 [facility] TDAP 2021-08-03 Completed University of 00:00:00 [facility] TDAP 2021-08-03 Completed University of 00:00:00 [place] [facility] TDAP 2021-08-03 Completed [facility] 00:00:00 [place] [facility] TDAP 2021-08-03 Completed [facility] 00:00:00 [place] [facility] TDAP 2021-08-03 Completed [facility] 00:00:00 [place] [facility] TDAP 2021-08-03 Completed [facility] 00:00:00 [place] [facility] TDAP 2021-08-03 Completed [facility] 00:00:00 [place] [facility] TDAP 2021-08-03 Completed [facility] 00:00:00 [place] [facility] TDAP 2021-08-03 Completed [facility] 00:00:00 [place] [facility] TDAP 2021-08-03 Completed [facility] 00:00:00 [place] [facility] TDAP 2021-08-03 Completed [facility] of 00:00:00 [place] [facility] TDAP 2021-08-03 Completed [facility] 00:00:00 [place] [facility] TDAP 2021-08-03 Completed [facility] 00:00:00 [place] [facility] TDAP 2021-08-03 Completed [facility] 00:00:00 [place] [facility] TDAP 2021-08-03 Completed [facility] 00:00:00 [place] [facility] TDAP 2021-08-03 Completed [facility] 00:00:00 [place] [facility] TDAP 2021-08-03 Completed [facility] 00:00:00 [place] [facility] TDAP 2021-08-03 Completed [facility] 00:00:00 [place] [facility] TDAP 2021-08-03 Completed [facility] 00:00:00 [place] [facility] TDAP 2021-08-03 Completed [facility] 00:00:00 [place] [facility] TDAP 2021-08-03 Completed [facility] 00:00:00 [place] [facility] TDAP 2021-08-03 Completed [facility] 00:00:00 [place] [facility] TDAP 2021-08-03 Completed [facility] 00:00:00 [place] [facility] TDAP 2021-08-03 Completed [facility] 00:00:00 [place] [facility] TDAP 2021-08-03 Completed [facility] of 00:00:00 [place] [facility] TDAP 2021-08-03 Completed [facility] of 00:00:00 [place] [facility] TDAP 2021-08-03 Completed [facility] of 00:00:00 [place] [facility] TDAP 2021-08-03 Completed [facility] 00:00:00 [place] [facility] TDAP 2021-08-03 Completed [facility] of 00:00:00 [place] [facility] TDAP 2021-08-03 Completed [facility] 00:00:00 [place] [facility] TDAP 2021-08-03 Completed [facility] 00:00:00 [place] [facility] TDAP 2021-08-03 Completed [facility] of 00:00:00 [place] [facility] TDAP 2021-08-03 Completed [facility] 00:00:00 [place] [facility] TDAP 2021-08-03 Completed [facility] of 00:00:00 [place] [facility] TDAP 2021-08-03 Completed [facility] of 00:00:00 [place] [facility] TDAP 2021-08-03 Completed [facility] of 00:00:00 [place] [facility] TDAP 2021-08-03 Completed [facility] 00:00:00 [facility] [place] TDAP 2021-08-03 Completed University of 00:00:00 [facility] TDAP 2021-08-03 Completed University of 00:00:00 [place] [facility] TDAP 2021-08-03 Completed [facility] of 00:00:00 [place] [facility] TDAP 2021-08-03 Completed University of 00:00:00 [facility] TDAP 2021-08-03 Completed University of 00:00:00 [place] [facility] TDAP 2021-08-03 Completed [facility] of 00:00:00 [place] [facility] TDAP 2021-08-03 Completed University of 00:00:00 [facility] TDAP 2021-08-03 Completed University of 00:00:00 [facility] TDAP 2021-08-03 Completed University of 00:00:00 [place] [facility] TDAP 2021-08-03 Completed [facility] 00:00:00 [place] [facility] TDAP 2021-08-03 Completed [facility] 00:00:00 [facility] [place] TDAP 2021-08-03 Completed [facility] of 00:00:00 [place] [facility] TDAP 2021-08-03 Completed [facility] of 00:00:00 [place] [facility] TDAP 2021-08-03 Completed University of 00:00:00 [facility] TDAP 2021-08-03 Completed University of 00:00:00 [facility] TDAP 2021-08-03 Completed [facility] of 00:00:00 [place] [facility] TDAP 2021-08-03 Completed University of 00:00:00 [facility] TDAP 2021-08-03 Completed University of 00:00:00 [facility] TDAP 2021-08-03 Completed University of 00:00:00 [facility] TDAP 2020-06-14 Completed University of 00:00:00 [facility] TDAP 2020-06-14 Completed University of 00:00:00 [facility] TDAP 2020-06-14 Completed University of 00:00:00 [facility] TDAP 2020-06-14 Completed University of 00:00:00 [facility] TDAP 2020-06-14 Completed University of 00:00:00 [facility] TDAP 2020-06-14 Completed University of 00:00:00 [facility] TDAP 2020-06-14 Completed University of 00:00:00 [facility] TDAP 2020-06-14 Completed University of 00:00:00 [facility] TDAP 2020-06-14 Completed University of 00:00:00 [facility] TDAP 2020-06-14 Completed University of 00:00:00 [facility] TDAP 2020-06-14 Completed University of 00:00:00 [facility] TDAP 2020-06-14 Completed University of 00:00:00 [facility] TDAP 2020-06-14 Completed University of 00:00:00 [facility] TDAP 2020-06-14 Completed University of 00:00:00 [facility] TDAP 2020-06-14 Completed University of 00:00:00 [facility] TDAP 2020-06-14 Completed University of 00:00:00 [facility] TDAP 2020-06-14 Completed University of 00:00:00 [facility] TDAP 2020-06-14 Completed University of 00:00:00 [facility] TDAP 2020-06-14 Completed University of 00:00:00 [facility] TDAP 2020-06-14 Completed University of 00:00:00 [facility] TDAP 2020-06-14 Completed University of 00:00:00 [facility] TDAP 2020-06-14 Completed University of 00:00:00 [facility] TDAP 2020-06-14 Completed University of 00:00:00 [facility] TDAP 2020-06-14 Completed University of 00:00:00 [facility] TDAP 2020-06-14 Completed University of 00:00:00 [place] [facility] TDAP 2020-06-14 Completed [facility] 00:00:00 [place] [facility] TDAP 2020-06-14 Completed [facility] 00:00:00 [place] [facility] TDAP 2020-06-14 Completed University of 00:00:00 [facility] TDAP 2020-06-14 Completed University of 00:00:00 [facility] TDAP 2020-06-14 Completed University of 00:00:00 [facility] TDAP 2020-06-14 Completed University of 00:00:00 [facility] TDAP 2020-06-14 Completed University of 00:00:00 [facility] TDAP 2020-06-14 Completed University of 00:00:00 [facility] TDAP 2020-06-14 Completed University of 00:00:00 [facility] TDAP 2020-06-14 Completed University of 00:00:00 [facility] TDAP 2020-06-14 Completed University of 00:00:00 [facility] TDAP 2020-06-14 Completed University of 00:00:00 [facility] TDAP 2020-06-14 Completed University of 00:00:00 [facility] TDAP 2020-06-14 Completed University of 00:00:00 [facility] TDAP 2020-06-14 Completed University of 00:00:00 [facility] TDAP 2020-06-14 Completed University of 00:00:00 [facility] TDAP 2020-06-14 Completed University of 00:00:00 [facility] TDAP 2020-06-14 Completed University of 00:00:00 [facility] TDAP 2020-06-14 Completed University of 00:00:00 [facility] TDAP 2020-06-14 Completed University of 00:00:00 [facility] TDAP 2020-06-14 Completed University of 00:00:00 [place] [facility] TDAP 2020-06-14 Completed [facility] of 00:00:00 [facility] TDAP 2020-06-14 Completed University of 00:00:00 [facility] TDAP 2020-06-14 Completed University of 00:00:00 [facility] TDAP 2020-06-14 Completed University of 00:00:00 [facility] TDAP 2020-06-14 Completed University of 00:00:00 [place] [facility] TDAP 2020-06-14 Completed [facility] 00:00:00 [place] [facility] TDAP 2020-06-14 Completed [facility] of 00:00:00 [place] [facility] TDAP 2020-06-14 Completed [facility] 00:00:00 [place] [facility] TDAP 2020-06-14 Completed [facility] 00:00:00 [place] [facility] TDAP 2020-06-14 Completed [facility] of 00:00:00 [place] [facility] TDAP 2020-06-14 Completed [facility] 00:00:00 [place] [facility] TDAP 2020-06-14 Completed [facility] of 00:00:00 [place] [facility] TDAP 2020-06-14 Completed [facility] of 00:00:00 [place] [facility] TDAP 2020-06-14 Completed [facility] 00:00:00 [facility] [place] TDAP 2020-06-14 Completed University of 00:00:00 [facility] Influenza Virus 2020-01-14 Completed Universit y of Vaccine [place] .5 mL 00:00:00 [place] [facility] IM 6+ MO Branch Influenza Virus [...] y of Vaccine [place] .5 mL 00:00:00 [place] [facility] IM 6+ MO Branch HPV9 2017-05-30 Completed University of 00:00:00 [facility] HPV9 2017-05-30 Completed University of 00:00:00 [place] [...] Branch HPV9 2017-05-30 Completed University of 00:00:00 [place] [facility] HPV9 2017-05-30 Completed University of 00:00:00 [place] [facility] HPV9 2017-05-30 Completed [facility] 00:00:00 [place] [facility] HPV9 2017-05-30 Completed University of 00:00:00 [facility] HPV9 2016-03-19 Completed University of 00:00:00 [facility] HPV9 2016-03-19 Completed University of 00:00:00 [place] [facility] HPV9 2016-03-19 Completed University of 00:00:00 [place] [facility] HPV9 2016-03-19 Completed University of 00:00:00 [place] [facility] HPV9 2016-03-19 Completed University of 00:00:00 [place] [facility] HPV9 2016-03-19 Completed University of 00:00:00 [place] [facility] HPV9 2016-03-19 Completed University of 00:00:00 [facility] HPV9 2016-03-19 Completed University of 00:00:00 [facility] HPV9 2016-03-19 Completed University of 00:00:00 [facility] HPV9 2016-03-19 Completed University of 00:00:00 [facility] HPV9 2016-03-19 Completed University of 00:00:00 [facility] HPV9 2016-03-19 Completed University of 00:00:00 [place] [facility] HPV9 2016-03-19 Completed University of 00:00:00 [facility] HPV9 2016-03-19 Completed University of 00:00:00 [facility] HPV9 2016-03-19 Completed University of 00:00:00 [facility] HPV9 2016-03-19 Completed University of 00:00:00 [facility] HPV9 2016-03-19 Completed University of 00:00:00 [facility] HPV9 2016-03-19 Completed University of 00:00:00 [facility] HPV9 2016-03-19 Completed University of 00:00:00 [place] [facility] HPV9 2016-03-19 Completed University of 00:00:00 [place] [facility] HPV9 2016-03-19 Completed University of 00:00:00 [facility] HPV9 2016-03-19 Completed University of 00:00:00 [facility] HPV9 2016-03-19 Completed University of 00:00:00 [place] [facility] HPV9 2016-03-19 Completed University of 00:00:00 [place] [facility] HPV9 2016-03-19 Completed University of 00:00:00 [place] [facility] HPV9 2016-03-19 Completed University of 00:00:00 [place] [facility] HPV9 2016-03-19 Completed University of 00:00:00 [place] [facility] HPV9 2016-03-19 Completed University of 00:00:00 [place] [facility] HPV9 2016-03-19 Completed University of 00:00:00 [place] [facility] HPV9 2016-03-19 Completed University of 00:00:00 [place] [facility] HPV9 2016-03-19 Completed University of 00:00:00 [place] [facility] HPV9 2016-03-19 Completed University of 00:00:00 [place] [facility] HPV9 2016-03-19 Completed University of 00:00:00 [place] [facility] HPV9 2016-03-19 Completed University of 00:00:00 [place] [facility] HPV9 2016-03-19 Completed University [facility] 00:00:00 [place] [facility] HPV9 2016-03-19 Completed University of 00:00:00 [place] [facility] HPV9 2016-03-19 Completed University of 00:00:00 [place] [facility] HPV9 2016-03-19 Completed University of 00:00:00 [place] [facility] HPV9 2016-03-19 Completed University of 00:00:00 [place] [facility] HPV9 2016-03-19 Completed University of 00:00:00 [place] [facility] HPV9 2016-03-19 Completed University of 00:00:00 [place] [facility] HPV9 2016-03-19 Completed University of 00:00:00 [place] [facility] HPV9 2016-03-19 Completed University of 00:00:00 [place] [facility] HPV9 2016-03-19 Completed University of 00:00:00 [place] [facility] HPV9 2016-03-19 Completed University of 00:00:00 [place] [facility] HPV9 2016-03-19 Completed University of 00:00:00 [place] [facility] HPV9 2016-03-19 Completed University of 00:00:00 [place] [facility] HPV9 2016-03-19 Completed University of 00:00:00 [place] [facility] HPV9 2016-03-19 Completed University of 00:00:00 [place] [facility] HPV9 2016-03-19 Completed University of 00:00:00 [place] [facility] HPV9 2016-03-19 Completed University of 00:00:00 [place] [facility] HPV9 2016-03-19 Completed University of 00:00:00 [place] [facility] HPV9 2016-03-19 Completed University of 00:00:00 [place] [facility] HPV9 2016-03-19 Completed University of 00:00:00 [place] [facility] HPV9 2016-03-19 Completed University of 00:00:00 [place] [facility] HPV9 2016-03-19 Completed University of 00:00:00 [facility] HPV9 2016-03-19 Completed [facility] 00:00:00 [facility] HPV9 2016-03-19 Completed [facility] of 00:00:00 [facility] HPV9 2016-03-19 Completed [facility] 00:00:00 [facility] HPV9 2016-03-19 Completed [facility] 00:00:00 [facility] HPV9 2016-03-19 Completed [facility] 00:00:00 [facility] HPV9 2015-11-23 Completed [facility] 00:00:00 [facility] HPV9 2015-11-23 Completed [facility] 00:00:00 [facility] HPV9 2015-11-23 Completed [facility] 00:00:00 [facility] HPV9 2015-11-23 Completed [facility] 00:00:00 [facility] HPV9 2015-11-23 Completed [facility] 00:00:00 [facility] HPV9 2015-11-23 Completed [facility] 00:00:00 [facility] HPV9 2015-11-23 Completed [facility] 00:00:00 [facility] HPV9 2015-11-23 Completed [facility] 00:00:00 [facility] HPV9 2015-11-23 Completed [facility] 00:00:00 [facility] HPV9 2015-11-23 Completed [facility] 00:00:00 [facility] HPV9 2015-11-23 Completed [facility] 00:00:00 [facility] HPV9 2015-11-23 Completed [facility] 00:00:00 [facility] HPV9 2015-11-23 Completed [facility] 00:00:00 [facility] HPV9 2015-11-23 Completed [facility] 00:00:00 [facility] HPV9 2015-11-23 Completed University of 00:00:00 [facility] HPV9 2015-11-23 Completed [facility] 00:00:00 [facility] HPV9 2015-11-23 Completed [facility] 00:00:00 [facility] HPV9 2015-11-23 Completed [facility] 00:00:00 [facility] HPV9 2015-11-23 Completed [facility] 00:00:00 [facility] HPV9 2015-11-23 Completed [facility] 00:00:00 [facility] HPV9 2015-11-23 Completed [facility] 00:00:00 [facility] HPV9 2015-11-23 Completed [facility] 00:00:00 [facility] HPV9 2015-11-23 Completed [facility] 00:00:00 [facility] HPV9 2015-11-23 Completed [facility] 00:00:00 [facility] HPV9 2015-11-23 Completed [facility] 00:00:00 [facility] HPV9 2015-11-23 Completed [facility] 00:00:00 [facility] HPV9 2015-11-23 Completed [facility] 00:00:00 [facility] HPV9 2015-11-23 Completed [facility] 00:00:00 [facility] HPV9 2015-11-23 Completed [facility] 00:00:00 [facility] HPV9 2015-11-23 Completed [facility] 00:00:00 [facility] HPV9 2015-11-23 Completed [facility] 00:00:00 [facility] HPV9 2015-11-23 Completed [facility] 00:00:00 [facility] HPV9 2015-11-23 Completed [facility] 00:00:00 [facility] HPV9 2015-11-23 Completed [facility] 00:00:00 [facility] HPV9 2015-11-23 Completed [facility] 00:00:00 [facility] HPV9 2015-11-23 Completed [facility] 00:00:00 [facility] HPV9 2015-11-23 Completed [facility] 00:00:00 [facility] HPV9 2015-11-23 Completed [facility] 00:00:00 [facility] HPV9 2015-11-23 Completed [facility] 00:00:00 [facility] HPV9 2015-11-23 Completed [facility] 00:00:00 [facility] HPV9 2015-11-23 Completed [facility] 00:00:00 [facility] HPV9 2015-11-23 Completed [facility] 00:00:00 [facility] HPV9 2015-11-23 Completed [facility] 00:00:00 [facility] HPV9 2015-11-23 Completed [facility] 00:00:00 [facility] HPV9 2015-11-23 Completed [facility] 00:00:00 [facility] HPV9 2015-11-23 Completed [facility] 00:00:00 [facility] HPV9 2015-11-23 Completed [facility] 00:00:00 [facility] HPV9 2015-11-23 Completed [facility] 00:00:00 [facility] HPV9 2015-11-23 Completed [facility] 00:00:00 [facility] HPV9 2015-11-23 Completed [facility] 00:00:00 [facility] HPV9 2015-11-23 Completed [facility] 00:00:00 [facility] HPV9 2015-11-23 Completed [facility] 00:00:00 [facility] HPV9 2015-11-23 Completed [facility] 00:00:00 [facility] HPV9 2015-11-23 Completed [facility] 00:00:00 [facility] HPV9 2015-11-23 Completed [facility] 00:00:00 [facility] HPV9 2015-11-23 Completed [facility] 00:00:00 [facility] HPV9 2015-11-23 Completed [facility] 00:00:00 [facility] HPV9 2015-11-23 Completed [facility] 00:00:00 [facility] HPV9 2015-11-23 Completed [facility] 00:00:00 [facility] HPV9 2015-11-23 Completed [facility] 00:00:00 [facility] HPV9 2015-11-23 Completed [facility] 00:00:00 [facility] MMR 2011-12-11 Completed [facility] of 00:00:00 [facility] MMR 2011-12-11 Completed [facility] of 00:00:00 [facility] MMR 2011-12-11 Completed [facility] of 00:00:00 [facility] MMR 2011-12-11 Completed [facility] of 00:00:00 [facility] MMR 2011-12-11 Completed [facility] of 00:00:00 [facility] MMR 2011-12-11 Completed [facility] of 00:00:00 [facility] MMR 2011-12-11 Completed [facility] of 00:00:00 [facility] TDAP 2011-02-25 Completed [facility] 00:00:00 [facility] TDAP 2011-02-25 Completed [facility] 00:00:00 [facility] TDAP 2011-02-25 Completed [facility] 00:00:00 [facility] TDAP 2011-02-25 Completed [facility] 00:00:00 [facility] TDAP 2011-02-25 Completed [facility] of 00:00:00 [facility] TDAP 2011-02-25 Completed [facility] 00:00:00 [facility] TDAP 2011-02-25 Completed [facility] 00:00:00 [facility] TDAP 2011-02-25 Completed [facility] 00:00:00 [facility] TDAP 2011-02-25 Completed [facility] 00:00:00 [facility] TDAP 2011-02-25 Completed [facility] 00:00:00 [facility] TDAP 2011-02-25 Completed [facility] 00:00:00 [facility] TDAP 2011-02-25 Completed [facility] 00:00:00 [facility] TDAP 2011-02-25 Completed [facility] 00:00:00 [facility] TDAP 2011-02-25 Completed [facility] 00:00:00 [facility] TDAP 2011-02-25 Completed [facility] 00:00:00 [facility] TDAP 2011-02-25 Completed [facility] of 00:00:00 [facility] TDAP 2011-02-25 Completed [facility] of 00:00:00 [facility] TDAP 2011-02-25 Completed [facility] of 00:00:00 [facility] TDAP 2011-02-25 Completed [facility] 00:00:00 [facility] TDAP 2011-02-25 Completed [facility] of 00:00:00 [facility] TDAP 2011-02-25 Completed [facility] of 00:00:00 [facility] TDAP 2011-02-25 Completed [facility] of 00:00:00 [facility] TDAP 2011-02-25 Completed [facility] 00:00:00 [facility] TDAP 2011-02-25 Completed [facility] 00:00:00 [facility] TDAP 2011-02-25 Completed [facility] 00:00:00 [facility] TDAP 2011-02-25 Completed [facility] of 00:00:00 [facility] TDAP 2011-02-25 Completed [facility] 00:00:00 [facility] TDAP 2011-02-25 Completed [facility] 00:00:00 [facility] TDAP 2011-02-25 Completed [facility] 00:00:00 [facility] TDAP 2011-02-25 Completed [facility] 00:00:00 [facility] TDAP 2011-02-25 Completed [facility] 00:00:00 [facility] TDAP 2011-02-25 Completed [facility] 00:00:00 [facility] TDAP 2011-02-25 Completed [facility] 00:00:00 [facility] TDAP 2011-02-25 Completed [facility] 00:00:00 [facility] TDAP 2011-02-25 Completed [facility] of 00:00:00 [facility] TDAP 2011-02-25 Completed [facility] of 00:00:00 [facility] TDAP 2011-02-25 Completed [facility] of 00:00:00 [facility] TDAP 2011-02-25 Completed [facility] 00:00:00 [facility] TDAP 2011-02-25 Completed [facility] 00:00:00 [facility] TDAP 2011-02-25 Completed [facility] 00:00:00 [facility] TDAP 2011-02-25 Completed [facility] 00:00:00 [facility] TDAP 2011-02-25 Completed [facility] 00:00:00 [facility] TDAP 2011-02-25 Completed [facility] 00:00:00 [facility] TDAP 2011-02-25 Completed [facility] 00:00:00 [facility] TDAP 2011-02-25 Completed [facility] 00:00:00 [facility] TDAP 2011-02-25 Completed [facility] 00:00:00 [facility] TDAP 2011-02-25 Completed [facility] 00:00:00 [facility] TDAP 2011-02-25 Completed [facility] of 00:00:00 [facility] TDAP 2011-02-25 Completed [facility] 00:00:00 [facility] TDAP 2011-02-25 Completed [facility] 00:00:00 [facility] TDAP 2011-02-25 Completed [facility] 00:00:00 [facility] TDAP 2011-02-25 Completed [facility] 00:00:00 [facility] TDAP 2011-02-25 Completed [facility] 00:00:00 [facility] TDAP 2011-02-25 Completed [facility] 00:00:00 [facility] TDAP 2011-02-25 Completed [facility] 00:00:00 [facility] TDAP 2011-02-25 Completed [facility] 00:00:00 [facility] TDAP 2011-02-25 Completed [facility] of 00:00:00 [facility] TDAP 2011-02-25 Completed [facility] of 00:00:00 [facility] TDAP 2011-02-25 Completed [facility] of 00:00:00 [facility] TDAP 2011-02-25 Completed [facility] of 00:00:00 [facility] TDAP 2011-02-25 Completed [facility] of 00:00:00 [facility] TDAP Unknown Completed University [facility] HPV9 Unknown Completed University [facility] HPV9 Unknown Completed [facility] HPV9 Unknown Completed [facility] Influenza Virus Unknown Completed Universit y of Vaccine Quad .5 mL [facility] 6+ [facility] (FLUZONE/FLULAVAL/F LUARIX) TDAP Unknown Completed [facility] TDAP Unknown Completed [facility] TDAP Unknown Completed [facility] TDAP Unknown Completed [facility] HPV9 Unknown Completed [facility] HPV9 Unknown Completed [facility] HPV9 Unknown Completed [facility] Influenza Virus Unknown Completed [facility] of Vaccine Quad .5 mL [facility] 6+ [facility] (FLUZONE/FLULAVAL/F LUARIX) TDAP Unknown Completed [facility] TDAP Unknown Completed [facility] TDAP Unknown Completed [facility] TDAP Unknown Completed [facility] HPV9 Unknown Completed [facility] HPV9 Unknown Completed [facility] HPV9 Unknown Completed [facility] Influenza Virus Unknown Completed [facility] Vaccine Quad .5 mL [facility] 6+ [facility] (FLUZONE/FLULAVAL/F LUARIX) TDAP Unknown Completed [facility] TDAP Unknown Completed [facility] TDAP Unknown Completed [facility] TDAP Unknown Completed [facility] HPV9 Unknown Completed [facility] HPV9 Unknown Completed [facility] HPV9 Unknown Completed [facility] Influenza Virus Unknown Completed Universit y of Vaccine Quad .5 mL [facility] IM 6+ [facility] (FLUZONE/FLULAVAL/F LUARIX) TDAP Unknown Completed [facility] TDAP Unknown Completed [facility] TDAP Unknown Completed [facility] HPV9 Unknown Completed [facility] HPV9 Unknown Completed [facility] HPV9 Unknown Completed [facility] Influenza Virus Unknown Completed [facility] Vaccine Quad .5 mL [facility] 6+ [facility] (FLUZONE/FLULAVAL/F LUARIX) TDAP Unknown Completed [facility] TDAP Unknown Completed [facility] HPV9 Unknown Completed [facility] HPV9 Unknown Completed [facility] HPV9 Unknown Completed [facility] Influenza Virus Unknown Completed [facility] of Vaccine Quad .5 mL [facility] 6+ [facility] (FLUZONE/FLULAVAL/F LUARIX) TDAP Unknown Completed [facility] TDAP Unknown Completed [facility] HPV9 Unknown Completed [facility] HPV9 Unknown Completed [facility] HPV9 Unknown Completed [facility] Influenza Virus Unknown Completed [facility] of Vaccine Quad .5 mL [facility] 6+ [facility] (FLUZONE/FLULAVAL/F LUARIX) TDAP Unknown Completed [facility] TDAP Unknown Completed [facility] HPV9 Unknown Completed [facility] HPV9 Unknown Completed [facility] HPV9 Unknown Completed [facility] Influenza Virus Unknown Completed [facility]it y of Vaccine Quad .5 mL [facility] IM 6+ [facility] (FLUZONE/FLULAVAL/F LUARIX) TDAP Unknown Completed [facility] TDAP Unknown Completed [facility] HPV9 Unknown Completed [facility] HPV9 Unknown Completed [facility] HPV9 Unknown Completed [facility] Influenza Virus Unknown Completed Universit y of Vaccine Quad .5 mL [facility] IM 6+ [facility] (FLUZONE/FLULAVAL/F LUARIX) TDAP Unknown Completed [facility] TDAP Unknown Completed [facility] HPV9 Unknown Completed [facility] HPV9 Unknown Completed [facility] HPV9 Unknown Completed [facility] Influenza Virus Unknown Completed Universit y of Vaccine Quad .5 mL [facility] IM 6+ [facility] (FLUZONE/FLULAVAL/F LUARIX) TDAP Unknown Completed [facility] TDAP Unknown Completed [facility] HPV9 Unknown Completed [facility] HPV9 Unknown Completed [facility] HPV9 Unknown Completed [facility] Influenza Virus Unknown Completed [facility] y of Vaccine Quad .5 mL [facility] IM 6+ [facility] (FLUZONE/FLULAVAL/F LUARIX) TDAP Unknown Completed [facility] TDAP Unknown Completed [facility] HPV9 Unknown Completed [facility] HPV9 Unknown Completed [facility] HPV9 Unknown Completed [facility] Influenza Virus Unknown Completed Universit y of Vaccine Quad .5 mL [facility] IM 6+ [facility] (FLUZONE/FLULAVAL/F LUARIX) TDAP Unknown Completed [facility] TDAP Unknown Completed [facility] TDAP Unknown Completed [facility] Vital Signs Vital Name Observation Time Observation Value Comments Source Systolic blood 2022-10-23 112 mm[Hg] University of pressure 15:43:00 [facility] Diastolic blood 2022-10-23 57 mm[Hg] University o f pressure 15:43:00 [facility] Heart rate 2022-10-23 81 /min University of 15:43:00 [facility] Body temperature 2022-10-23 36.72 [facility] of 15:43:00 [facility] Respiratory rate 2022-10-23 18 /min University of 15:43:00 [facility] Body weight 2022-10-23 117.845 kg University of 15:43:00 [facility] BMI 2022-10-23 44.59 kg/m2 University of 15:43:00 [facility] Heart rate 2022-10-10 85 /min University of 12:00:00 [facility] Body temperature 2022-10-10 37.06 [facility] of 12:00:00 [facility] Respiratory rate 2022-10-10 18 /min University of 12:00:00 [facility] Systolic blood 2022-10-10 113 mm[Hg] University of pressure 07:00:00 [facility] Diastolic blood 2022-10-10 47 mm[Hg] University o f pressure 07:00:00 [facility] Oxygen saturation 2022-10-10 100 /min [facility] in Arterial blood 07:00:00 [facility] by Pulse oximetry [place] Body height 2022-10-08 162.6 cm University of 10:28:00 [facility] Body weight 2022-10-08 124.83 kg University of 10:28:00 [facility] BMI 2022-10-08 47.24 kg/m2 University of 10:28:00 [facility] Systolic blood 2022-10-08 129 mm[Hg] BP location changed Univer sity of pressure 14:30:00 to lower arms [facility] Diastolic blood 2022-10-08 67 mm[Hg] BP location changed Unive rsity of pressure 14:30:00 to lower arms [facility] Heart rate 2022-10-08 63 /min University of 14:30:00 [facility] Oxygen saturation 2022-10-08 99 /min University in Arterial blood 14:30:00 [facility] by Pulse oximetry Branch Body temperature 2022-10-08 36.22 [facility] 14:28:00 [facility] Respiratory rate 2022-10-08 18 /min University of 14:28:00 [facility] Body height 2022-10-08 162.6 cm University of 10:28:00 [facility] Body weight 2022-10-08 124.83 kg University of 10:28:00 [facility] BMI 2022-10-08 47.24 kg/m2 University of 10:28:00 [facility] Heart rate 2022-10-06 94 /min University of 01:00:00 [facility] Oxygen saturation 2022-10-06 97 /min [facility] in Arterial blood 01:00:00 [facility] by Pulse oximetry Branch Systolic blood 2022-10-06 101 mm[Hg] University of pressure 00:30:00 [facility] Diastolic blood 2022-10-06 60 mm[Hg] University o f pressure 00:30:00 [facility] Body temperature 2022-10-06 36.72 [facility] 00:00:00 [facility] Respiratory rate 2022-10-06 18 /min University of 00:00:00 [facility] Body weight 2022-10-05 124.739 kg based off pts last Universit y of 21:30:00 weight, unable to [facility] obtain weight pt Branch was tranbsportred via EMS BMI 2022-10-05 47.20 kg/m2 University of 21:30:00 [facility] Systolic blood 2022-09-24 117 mm[Hg] University of pressure 18:08:00 [facility] Diastolic blood 2022-09-24 71 mm[Hg] University o f pressure 18:08:00 [facility] Heart rate 2022-09-24 111 /min University of 18:08:00 [facility] Body temperature 2022-09-24 36.72 [facility] 18:08:00 [facility] Respiratory rate 2022-09-24 18 /min University of 18:08:00 [facility] Body height 2022-09-24 162.6 cm University of 18:08:00 [facility] Body weight 2022-09-24 124.739 kg University of 18:08:00 [facility] BMI 2022-09-24 47.20 kg/m2 University of 18:08:00 [facility] Heart rate 2022-09-23 86 /min University of 04:53:00 [facility] Oxygen saturation 2022-09-23 100 /min University of in Arterial blood 04:53:00 [facility] silver by Pulse oximetry Branch Systolic blood 2022-09-23 119 mm[Hg] University of pressure 04:30:00 [facility] Diastolic blood 2022-09-23 57 mm[Hg] University o f pressure 04:30:00 [facility] Body temperature 2022-09-23 36.94 [facility] of 04:30:00 [facility] Respiratory rate 2022-09-23 18 /min University of 04:30:00 [facility] Body height 2022-09-23 162.6 cm University of 04:30:00 [facility] Body weight 2022-09-23 125.556 kg University of 04:30: [facility] BMI 2022-09-23 47.51 kg/m2 University of 04:30:00 [facility] Systolic blood 2022-09-20 111 mm[Hg] University of pressure 21:00:00 [facility] Diastolic blood 2022-09-20 70 mm[Hg] University o f pressure 21:00:00 [facility] Heart rate 2022-09-20 100 /min University of :00:00 [facility] Respiratory rate 2022-09-20 18 /min University of :00:00 [facility] Body height 2022-09-20 162.6 cm University of :00:00 [facility] Body weight 2022-09-20 124.286 kg University of :00:00 [facility] BMI 2022-09-20 47.03 kg/m2 University of 21:00:00 [facility] Heart rate 2022-09-17 87 /min University of 22:05:00 [facility] Oxygen saturation 2022-09-17 100 /min University of in Arterial blood 22:05:00 [facility] silver by Pulse oximetry Branch Systolic blood 2022-09-17 118 mm[Hg] University of pressure 21:45:00 [facility] Diastolic blood 2022-09-17 53 mm[Hg] University o f pressure 21:45:00 [facility] Body temperature 2022-09-17 36.94 [facility] University of :45:00 [facility] Respiratory rate 2022-09-17 18 /min University of 21:45:00 [facility] Body height 2022-09-17 162.6 cm University of 21:45:00 [facility] Body weight 2022-09-17 124.286 kg University of 21:45:00 [facility] BMI 2022-09-17 47.03 kg/m2 University of 21:45:00 [facility] Systolic blood 2022-09-17 119 mm[Hg] University of pressure 19:49:00 [facility] Diastolic blood 2022-09-17 74 mm[Hg] University o f pressure 19:49:00 [facility] Heart rate 2022-09-17 92 /min University of 19:49:00 [facility] Body temperature 2022-09-17 36.67 [facility] of 19:49:00 [facility] Respiratory rate 2022-09-17 18 /min University of 19:49:00 [facility] Body height 2022-09-17 162.6 cm University of 19:49:00 [facility] Body weight 2022-09-17 124.286 kg University of 19:49:00 [facility] BMI 2022-09-17 47.03 kg/m2 University of 19:49:00 [facility] Oxygen saturation 2022-09-17 98 /min [facility] [facility] in Arterial blood 19:49:00 [facility] by Pulse oximetry Branch Systolic blood 2022-09-11 101 mm[Hg] University of pressure 16:29:00 [facility] Diastolic blood 2022-09-11 58 mm[Hg] University o f pressure 16:29:00 [facility] Heart rate 2022-09-11 91 /min University of 16:29:00 [facility] Body temperature 2022-09-11 36.83 Grace University of 16:29:00 [facility] Body height 2022-09-11 162.6 cm University of 16:29:00 [facility] Body weight 2022-09-11 123.832 kg University of 16:29:00 [facility] BMI 2022-09-11 46.86 kg/m2 University of 16:29:00 [facility] Heart rate 2022-09-02 91 /min University of 08:30:00 [facility] Oxygen saturation 2022-09-02 98 /min University in Arterial blood 08:30:00 [facility] by Pulse oximetry Branch Respiratory rate 2022-09-02 18 /min University of 07:38:00 [facility] Systolic blood 2022-09-02 120 mm[Hg] University of pressure 07:37:00 [facility] Diastolic blood 2022-09-02 62 mm[Hg] University o f pressure 07:37:00 [facility] Body temperature 2022-09-02 36.83 Grace University of 07:37:00 [facility] Body height 2022-09-02 162.6 cm University of 07:15:00 [facility] Body weight 2022-09-02 125.788 kg University of 07:15:00 [facility] BMI 2022-09-02 47.60 kg/m2 University of 07:15:00 [facility] Systolic blood 2022-08-26 114 mm[Hg] University of pressure 08:00:00 [facility] Diastolic blood 2022-08-26 45 mm[Hg] University o f pressure 08:00:00 [facility] Heart rate 2022-08-26 88 /min University of 08:00:00 [facility] Oxygen saturation 2022-08-26 99 /min University in Arterial blood 08:00:00 [facility] by Pulse oximetry Branch Body temperature 2022-08-26 37.17 Grace University of 07:45:00 [facility] Systolic blood 2022-08-14 113 mm[Hg] University of pressure 19:14:00 [facility] Diastolic blood 2022-08-14 72 mm[Hg] University o f pressure 19:14:00 [facility] Heart rate 2022-08-14 91 /min University of 19:14:00 [facility] Body temperature 2022-08-14 36.78 Grace University of 19:14:00 [facility] Body height 2022-08-14 165.1 cm University of 19:14:00 [facility] Body weight 2022-08-14 123.832 kg University of 19:14:00 [facility] BMI 2022-08-14 45.43 kg/m2 University of 19:14:00 [facility] Systolic blood 2022-08-06 113 mm[Hg] University of pressure 15:12:00 [facility] Diastolic blood 2022-08-06 70 mm[Hg] University o f pressure 15:12:00 [facility] Heart rate 2022-08-06 92 /min University of 15:12:00 [facility] Body height 2022-08-06 165.1 cm University of 15:12:00 [facility] Body weight 2022-08-06 123.741 kg University of 15:12:00 [facility] BMI 2022-08-06 45.40 kg/m2 University of 15:12:00 [facility] Systolic blood 2022-07-30 103 mm[Hg] University of pressure 15:02:00 [facility] Diastolic blood 2022-07-30 70 mm[Hg] University o f pressure 15:02:00 [facility] Heart rate 2022-07-30 93 /min University of 15:02:00 [facility] Body temperature 2022-07-30 36.94 Grace University of 15:02:00 [facility] Respiratory rate 2022-07-30 16 /min University of 15:02:00 [facility] Body height 2022-07-30 165.1 cm University of 15:02:00 [facility] Body weight 2022-07-30 123.651 kg University of 15:02:00 [facility] BMI 2022-07-30 45.36 kg/m2 University of 15:02:00 [facility] Oxygen saturation 2022-07-30 98 /min University of in Arterial blood 15:02:00 [facility] by Pulse oximetry Branch Systolic blood 2022-07-17 117 mm[Hg] University of pressure 18:29:00 [facility] Diastolic blood 2022-07-17 60 mm[Hg] University o f pressure 18:29:00 [facility] Heart rate 2022-07-17 87 /min University of 18:29:00 [facility] Body temperature 2022-07-17 37.28 Grace University of 18:29:00 [facility] Respiratory rate 2022-07-17 16 /min University of 18:29:00 [facility] Body height 2022-07-17 165.1 cm University of 18:29:00 [facility] Body weight 2022-07-17 122.471 kg University of 18:29:00 [facility] BMI 2022-07-17 44.93 kg/m2 University of 18:29:00 [facility] Oxygen saturation 2022-07-17 99 /min University of in Arterial blood 18:29:00 [place] [facility] by Pulse oximetry Branch Systolic blood 2022-07-02 119 mm[Hg] University of pressure 18:36:00 [place] [facility] Diastolic blood 2022-07-02 75 mm[Hg] University o f pressure 18:36:00 [facility] Heart rate 2022-07-02 63 /min University of 18:36:00 [facility] Body temperature 2022-07-02 36.44 Grace University of 18:36:00 [facility] Respiratory rate 2022-07-02 16 /min University of 18:36:00 [facility] Body height 2022-07-02 165.1 cm University of 18:36:00 [facility] Body weight 2022-07-02 124.286 kg University of 18:36:00 [facility] BMI 2022-07-02 45.60 kg/m2 University of 18:36:00 [facility] Systolic blood 2022-06-05 138 mm[Hg] University of pressure 00:01:00 [facility] Diastolic blood 2022-06-05 74 mm[Hg] University o f pressure 00:01:00 [facility] Heart rate 2022-06-05 95 /min University of 00:01:00 [facility] Body temperature 2022-06-05 37 Grace University of 00:01:00 [facility] Branch Respiratory rate 2022-06-05 18 /min University of 00:01:00 [facility] Body height 2022-06-05 165.1 cm University of 00:01:00 [facility] Body weight 2022-06-05 120.203 kg University of 00:01:00 [facility] BMI 2022-06-05 44.10 kg/m2 University of 00:01:00 [facility] Oxygen saturation 2022-06-05 100 /min University of in Arterial blood 00:01:00 [facility] silver by Pulse oximetry Branch Systolic blood 2022-05-02 148 mm[Hg] University of pressure 23:00:00 [place] [facility] Diastolic blood 2022-05-02 45 mm[Hg] University o f pressure 23:00:00 [facility] Branch Heart rate 2022-05-02 181 /min University of 23:00:00 [facility] Respiratory rate 2022-05-02 16 /min University of 23:00:00 [facility] Oxygen saturation 2022-05-02 98 /min University of in Arterial blood 23:00:00 [facility] silver by Pulse oximetry Branch Body temperature 2022-05-02 36.5 Grace University of 22:42:00 [facility] Body height 2022-05-02 162.6 cm University of 22:42:00 [facility] Body weight 2022-05-02 121.11 kg University of 22:42:00 [facility] BMI 2022-05-02 45.83 kg/m2 University of 22:42:00 [facility] Systolic blood 2022-03-06 124 mm[Hg] University of pressure 21:48:00 [facility] Diastolic blood 2022-03-06 69 mm[Hg] University o f pressure 21:48:00 [facility] Heart rate 2022-03-06 99 /min University of 21:48:00 [facility] Body temperature 2022-03-06 37.17 Grace University of 21:48:00 [facility] Respiratory rate 2022-03-06 18 /min University of 21:48:00 [facility] Body weight 2022-03-06 108.863 kg University of 21:48:00 [facility] BMI 2022-03-06 38.74 kg/m2 University of 21:48:00 [facility] Oxygen saturation 2022-03-06 99 /min University of in Arterial blood 21:48:00 [facility] by Pulse oximetry Branch Systolic blood 2021-12-30 152 mm[Hg] University of pressure 10:32:26 [facility] Diastolic blood 2021-12-30 85 mm[Hg] University o f pressure 10:32:26 [facility] Heart rate 2021-12-30 84 /min University of 10:32:26 [facility] Respiratory rate 2021-12-30 20 /min University of 10:32:26 [facility] Oxygen saturation 2021-12-30 98 /min University of in Arterial blood 10:32:26 [facility] by Pulse oximetry Branch Body temperature 2021-12-30 37.06 Grace University of 09:06:00 [facility] Body height 2021-12-30 167.6 cm University of 09:06:00 [facility] Body weight 2021-12-30 108.863 kg University of 09:06:00 [facility] BMI 2021-12-30 38.74 kg/m2 University of 09:06:00 [facility] Systolic blood 2021-12-13 146 mm[Hg] [place] of pressure 21:44:00 [facility] Diastolic blood 2021-12-13 81 mm[Hg] [facility] pressure 21:44:00 [facility] Heart rate 2021-12-13 93 /min University of 21:44:00 [facility] Body temperature 2021-12-13 36.61 Grace University 21:44:00 [facility] Respiratory rate 2021-12-13 20 /min University 21:44:00 [facility] Body height 2021-12-13 165.1 cm University of 21:44:00 [facility] Body weight 2021-12-13 90.719 kg University of 21:44:00 [facility] BMI 2021-12-13 33.28 kg/m2 University 21:44:00 [facility] Oxygen saturation 2021-12-13 100 /min [facility] Arterial blood 21:44:00 [facility] by Pulse oximetry Branch Procedures Procedure Date / Time Performing Clinician Source Performed [facility] PATIENT FINANCIAL 2022-10-23 15:05:02 Doctor Unassigned, No [facility] POLICY Name [facility] POCT GLUCOSE 2022-10-10 02:44:00 [facility] (AUTOMATED) [facility] CBC WITH DIFF 2022-10-09 08:31:00 [facility] CBC WITH DIFF 2022-10-09 08:31:00 [facility] POCT GLUCOSE 2022-10-08 21:21:00 [facility] (AUTOMATED) [facility] POCT GLUCOSE 2022-10-08 21:21:00 [facility] (AUTOMATED) [facility] POCT GLUCOSE 2022-10-08 17:44:00 [facility] (AUTOMATED) [facility] POCT GLUCOSE 2022-10-08 17:44:00 [facility] (AUTOMATED) [facility] SECTION 2022-10-08 12:06:00 Irma [facility] SECTION 2022-10-08 12:06:00 Irma [facility] CBC WITH DIFF 2022-10-08 10:54:00 Solis, Nayeli [facility] HEPATITIS B SURFACE 2022-10-08 10:54:00 Nayeli Solis [facility] ANTIGEN Medical Branch HB ABO GROUPING 2022-10-08 10:54:00 Irma [facility] RHO (D) IMMUNE GLOBULIN 2022-10-08 10:54:00 Nayeli Solis [facility] ADC OR MARK ONLY - 2022-10-08 10:54:00 Nayeli Solis [facility] Medical [place] HIV 1/2 AG-AB WITH 2022-10-08 10:54:00 [facility] Branch CBC WITH DIFF 2022-10-08 10:54:[address] [facility] HEPATITIS B SURFACE 2022-10-08 10:54:00 Nayeli Solis [facility] ANTIGEN Medical Branch HB ABO GROUPING 2022-10-08 10:54:[address] [facility] RHO (D) IMMUNE GLOBULIN 2022-10-08 10:54:00 Nayeli Solis [facility] ADC OR MARK ONLY - 2022-10-08 10:54:00 Nayeli Solis [facility] Medical [place] HIV 1/2 AG-AB WITH 2022-10-08 10:54:00 Nayeli Solis [facility] REFLEX Medical Branch POCT GLUCOSE 2022-10-08 10:47:00 Irma [facility] (AUTOMATED) Medical Branch POCT GLUCOSE 2022-10-08 10:47:00 Irma [facility] (AUTOMATED) Medical Branch NOTICE OF PRIVACY 2022-10-08 10:16:24 Doctor Unassigned, No [facility] [place] [facility]ACT[facility] Name Medical Branch NOTICE OF PRIVACY 2022-10-08 10:16:24 Doctor Unassigned, No [facility] [place] [facility] Name Medical Branch CONSENT/REFUSAL FOR 2022-10-08 10:14:17 Doctor Unassigned, No [facility] [place] DIAGNOSIS AND TREATMENT Name Medical Branch CONSENT/REFUSAL FOR 2022-10-08 10:14:17 Doctor Unassigned, No [facility] [place] DIAGNOSIS AND TREATMENT Name Medical Branch ASSIGNMENT OF BENEFITS 2022-10-08 10:13:52 Doctor Unassigned, No [facility] ASSIGNMENT OF BENEFITS 2022-10-08 10:13:52 Doctor Unassigned, No [facility] L&D VISIT 2022-10-05 05:01:00 Doctor Unassigned, No [facility] (NON-DELIVERED) [facility] EMERGENCY DEPARTMENT 2022-10-05 05:01:00 Doctor Unassigned, No [facility] Medical Branch L&D VISIT 2022-10-05 05:01:00 Doctor Unassigned, No [facility] (NON-DELIVERED) [facility] SECOND AND THIRD 2022-09-25 15:56:00 Royal [facility] TRIMESTER ULTRASOUND Medical [facility] NON-STRESS TEST 2022-09-24 18:41:11 Nayeli Solis [facility] URINALYSIS 2022-09-23 04:58:00 Yojana Parker [facility] ADC CLC OR LCC ONLY - 2022-09-23 04:58:00 Yojana Parker [facility] ASSIGNMENT OF BENEFITS 2022-09-23 03:56:01 Doctor Unassigned, No [facility] CONSENT/REFUSAL FOR 2022-09-23 03:54:28 Doctor Unassigned, No [facility]ATMENT [facility] NON-STRESS TEST 2022-09-20 21:28:02 Keira Parkersol [facility] CONSENT/REFUSAL FOR 2022-09-17 21:15:01 Doctor Unassigned, No Un [facility] DIAGNOSIS AND TREATMENT [facility] Medical [place] ASSIGNMENT OF BENEFITS 2022-09-17 21:14:19 Doctor Unassigned, No [facility] NON-STRESS TEST 2022-09-17 20:56:02 Yojana Parker [facility] NON-STRESS TEST 2022-09-11 23:07:15 Nayeli Solis [facility] CBC WITH DIFF 2022-09-11 17:48:00 Nayeli Solis [place] [facility] HIV 1/2 AG-AB WITH 2022-09-11 17:48:00 Nayeli Solis [facility] REFLEX Medical Branch POCT URINALYSIS W/O 2022-09-11 00:00:00 Nayeli Solis [facility] SPECIFIC GRAVITY Medical [place] POCT GLUCOSE 2022-09-02 07:57:00 Monica Najera [place] [facility] (AUTOMATED) Medical Branch ASSIGNMENT OF BENEFITS 2022-09-02 07:08:16 Doctor Unassigned, No [facility] ADC CLC OR LCC ONLY - 2022-08-26 07:39:00 Nayeli Solis [facility] WET PREP [facility] POCT URINALYSIS W/O 2022-08-14 00:00:00 Nayeli Solis [facility] SPECIFIC GRAVITY [facility] GC & CHLAMYDIA 2022-07-30 15:33:00 Deon [facility] AMPLIFIED ASSAY Medical Branch GALV ONLY - VAGINAL 2022-07-30 15:33:00 Deon [facility] PATHOGENS BY NUCLEIC Medical [facility] ACID TESTING TDAP VACCINE, >11 YRS, 2022-07-30 15:32:14 Royal Atkinson [facility] POCT URINALYSIS W/O 2022-07-30 00:00:00 Deon [facility] URINALYSIS 2022-07-17 19:51:00 Seferino Ambrose [facility] COMP. METABOLIC PANEL 2022-07-17 19:48:00 Seferino Ambrose [facility] ([id number]) [facility] CBC WITH DIFF 2022-07-17 19:48:00 Seferino Ambrose [facility] ASSIGNMENT OF BENEFITS 2022-07-17 19:39:31 Doctor Unassigned, No [facility] CONSENT/REFUSAL FOR 2022-07-17 19:39:13 Doctor Unassigned, No [facility] DIAGNOSIS AND TREATMENT [facility] GC & CHLAMYDIA 2022-07-02 18:48:00 Tritschler, Cheryal [facility] [place] AMPLIFIED ASSAY Medical Branch TRICHOMONAS AMPLIFIED 2022-07-02 18:48:00 Royal Atkinson [facility] ASSAY [facility] Branch CONSENT/REFUSAL FOR 2022-07-02 18:22:22 Doctor Unassigned, No [facility] DI[facility]IS AND TREATMENT [facility] POCT URINALYSIS W/O 2022-07-02 00:00:00 Royal Atkinson [facility] SPECIFIC GRAVITY [facility] NOTICE OF PRIVACY 2022-06-04 23:33:20 Doctor Unassigned, No [facility] PRACTICES Name [facility] CONSENT/REFUSAL FOR 2022-06-04 23:32:28 Doctor Unassigned, No [facility] L&D VISIT 2022-06-04 05:01:00 Doctor Unassigned, No [facility] (NON-DELIVERED) [facility] US PELVIS > 2022-05-03 00:41:32 Edgar Oliva [facility] 14 WEEKS [facility] POCT TEST 2022-05-02 22:57:00 Edgar Oliva [facility] LIPASE 2022-05-02 22:56:00 Edgar Oliva [facility] COMP. METABOLIC PANEL 2022-05-02 22:56:00 Edgar Oliva [facility] ([id number]) [facility] TOTAL BETA HCG ASSAY 2022-05-02 22:56:00 Edgar Oliva [facility] CBC WITH DIFF 2022-05-02 22:56:00 Edgar Oliva [facility] URINALYSIS 2022-05-02 22:56:00 Edgar Oliva [facility] CONSENT/REFUSAL FOR 2022-05-02 22:35:14 Doctor Unassigned, No [facility] DI[facility] TREATMENT [facility] US FIRST 2022-03-06 23:49:15 [facility] TRIMESTER LESS THAN 14 [facility] ranch WEEKS WITH TRANSVAGINAL TOTAL BETA HCG ASSAY 2022-03-06 22:21:00 Selma, Christopher [facility] CBC WITH DIFF 2022-03-06 22:21:00 Lyly [facility] HB ABO GROUPING 2022-03-06 22:20:00 Ly[facility] POCT TEST 2022-03-06 22:06:00 Irvin Edwards [facility] XR CHEST 2 VW 2021-12-30 10:05:32 Jorden Brooke [facility] RAPID STREP SCREEN FOR 2021-12-30 09:35:00 Jorden [facility]oke [facility] [place] [facility] URINALYSIS 2021-12-30 09:32:00 Jorden Brooke [facility] RAPID INFLUENZA A/B 2021-12-30 09:32:00 [facility] COVID-19 (ID NOW RAPID 2021-12-30 09:32:00 Jorden Brooke Un [facility] TESTING) Medical Branch CONSENT/REFUSAL FOR 2021-12-30 09:02:39 Doctor Unassigned, No [facility] [place] DIAGNOSIS AND TREATMENT Name Medical Branch XR CHEST 1 VW 2021-12-13 23:55:13 Makayla Bettencourt [facility] LIPASE 2021-12-13 23:24:00 Makayla Bettencourt [facility] COMP. METABOLIC PANEL 2021-12-13 23:24:00 Makayla Bettencourt [facility] ([id number]) [facility] CBC WITH DIFF 2021-12-13 23:24:00 Makayla Bettencourt [facility] POCT TEST 2021-12-13 23:10:00 Makayla Bettencourt [facility] URINALYSIS 2021-12-13 23:00:00 Makayla Bettencourt [facility] US GALL BLADDER 2021-12-13 22:44:06 Makayla Bettencourt [facility] CONSENT/REFUSAL FOR 2021-12-13 21:16:31 Doctor Unassigned, No [facility] [place] DIAGNOSIS AND TREATMENT Name [facility] Branch Encounters Start End Encounter Admission Attending Care Care Encounter Source Date/Time Date/Time Type Type Clinicians Facility Department ID 2022-09-17 Outpatient P [facility] JOSE [id number] Univers 16:09:46 ity of [facility] 2021-06-06 Outpatient X [facility] JOSE [id number] Univers 14:23:38 ity of [facility] 2020-12-26 Outpatient P [facility] JOSE [id number] Univers 04:28:49 ity of [facility] 2020-12-26 Emergency [facility] [id number] Univers 04:28:49 ity of [facility] 2022-12-06 2022-12-06 Outpatient R NAYELI SOLIS [facility] [id number] Univers 15:30:00 15:30:00 ity of [facility] 2022-12-04 2022-12-04 Telephone Nayeli Solis [facility] [id number] Univers 00:00:00 00:00:00 Johnathan MANRIQUE [id number] i [id number] [id number] Fl dical NAL [address] [place] [address] 2022-10-23 2022-10-23 Outpatient R SOLIS NAYELI [facility] [id number] Univers 10:30:00 10:43:01 ity of [facility] 2022-10-23 2022-10-23 Routine Yojana Parker [facility] [id number]. [id number] Univers 10:30:00 10:43:01 Nayeli Solis [id number] ity of [id number] [id number] Fl dical NAL [address] [facility] 2022-10-23 2022-10-23 Orders Doctor EMMANUEL [id number] Univers 00:00:00 00:00:00 Only Unassigned, KHURRAM [id number] [address]y [address] [place] [facility] [id number] Lui as [id number] [address] 2022-10-23 2022-10-23 Telephone Nayeli Solis [facility] [id number] Univers 00:00:00 00:00:00 Cam [place] [id number] i [id number] [id number] Fl dical [address] 2022-10-22 2022-10-22 Outpatient R [facility] [id number] Univers 14:30:00 14:30:00 ity of [facility] 2022-10-16 2022-10-16 Outpatient R [facility] [id number] Univers 15:00:00 15:00:00 ity of [facility] 2022-10-08 2022-10-10 Inpatient P [facility] JOSE [id number] Univers 05:17:00 10:55:00 ity of [facility] 2022-10-08 2022-10-10 [facility] Nayeli Solis [facility] [id number] Univers 05:17:00 10:55:00 Encounter Cam [place] [id number] [id number] [facility] [id number] [facility] [address] [place] 2022-10-08 2022-10-08 [facility] [id number] Univers 08:00:00 09:37:00 Cam [place] [id number] i [id number] [id number] [facility] [address] [place] 2022-10-06 2022-10-06 Cherri Villafana [id number] Univers 00:00:00 00:00:00 Triage KHURRAM [id number] it y of HOSPITAL [id number] [facility] [address] Branch 2022-10-05 2022-10-05 Outpatient P NAYELI SOLIS [facility] JOSE [id number] Univers 14:48:00 20:10:00 ity of [facility] 2022-10-05 2022-10-05 [facility] [id number] Univers 14:48:00 20:10:00 Encounter Cam [place] [id number] [id number] [id number] [facility] [address] [place] 2022-09-27 2022-09-27 Outpatient R [facility] [id number] Univers 14:00:00 14:00:00 ity of [facility] 2022-09-26 2022-09-26 Case Deon [facility] 1.2.840.114 [id number] Univers 00:00:00 00:00:00 Management Royal [place] 350.1.13.10 ity of WOMEN'[place] 4.2.7.2.686 [place] [facility] [id number] [address] 2022-09-26 2022-09-26 Telephone Nayeli Solis [facility] 1.2.840.114 10 [id number] Univers 00:00:00 00:00:00 Johnathan [facility] 350.1.13.10 i ty of [place].2.7.2.[place] [phone] Fl dical NAL [address] [place] [address] 2022-09-25 2022-09-25 Outpatient P RAMSEY [facility] [id number] Univers 10:15:00 10:53:24 GUNNAR it y of SADIA Lucas [facility] 2022-09-25 2022-09-25 Pmo Lead Ultrasound, [facility] 1.2 .840.114 [id number] Univers 10:15:00 10:53:24 Visit Sadia Hays MACHINE HEDDLE CLEANER 350.1. 13.10 ity of REGIONAL 4.2.7.2.686 Lui as MATERNAL [phone] Med ical & CHILD [address] [place] [address] 2022-09-24 2022-09-24 Routine Room, [facility] 1.2.840.1 14 [id number] Univers 14:00:00 14:00:00 Nayeli [facility] 350.1.13.10 ity of Visit [place] 4.2.7.2.686 [place] [phone] Fl dical NAL [address] [place] [address] 2022-09-24 2022-09-24 Outpatient R NAYELI SOLIS [facility] [id number] Univers 14:00:00 13:40:46 ity of [facility] 2022-09-22 2022-09-23 Outpatient X KEIRA PARKERSOL [facility] O BY [id number] Univers 23:02:00 01:00:00 PEREZ-JOHN, YOJANA ity [facility] 2022-09-22 2022-09-23 Emergency Perez-Maria Luz [facility] 1.2.840.114 [id number] Univers 23:02:00 01:00:00 s, Yojana [place] 350.1.13.10 ity of [place] 4.2.7.2.686 [place] CAMPUS [id number] [address] 2022-09-20 2022-09-20 Routine Room, [facility] 1.2.840.1 14 [id number] Univers 15:00:00 15:15:00 Perez-Alvaro Yojana [place] 350.1. 13.10 ity of Visit [place] 4.2.7.2.686 [place] [facility] [id number] Fl dical [facility] [address] BUILDING 2022-09-20 2022-09-20 Outpatient R SELINA YOJANA [facility] U TMB [id number] Univers 15:00:00 15:00:00 PEREZ-JOHN, YOJANA ity [facility] 2022-09-17 2022-09-17 Outpatient P SELINA YOJANA [facility] O BY [id number] Univers 16:13:00 17:15:00 PEREZ-JOHN, YOJANA ity [facility] 2022-09-17 2022-09-17 [facility] DonaldMaria Luz [facility] 1.2.840.114 1 [id number] Univers 16:13:00 17:15:00 Encounter sKeiraYojana [place] 350.1.13.10 ity of [place] 4.2.7.2.686 [place] CAMPUS [id number] [address] 2022-09-17 2022-09-17 Outpatient R CHRIS-KEIRA JOHNSOL [facility] U TMB [id number] Univers 14:00:00 15:30:08 PEREZ-ALVARO, YOJANA ity of [facility] 2022-09-17 2022-09-17 Routine Room, [facility] 1.2.840.1 14 [id number] Univers 14:00:00 15:30:08 Chris-Keira Johnsol [facility] 350.1. 13.10 ity of Visit [place] 4.2.7.2.686 [place] [phone] Fl dical NAL 134 [facility] 2022-09-14 2022-09-14 Patient Doctor [facility] 1.2.840.114 [id number] Univers 00:00:00 00:00:00 Secure Msg Unassigned, [facility] 350.1.13.10 ity of [place] 4.2.7.2.686 [place] [facility] [id number] [facility] PRIMARY & [address] SPECIALTY CARE 2022-09-12 2022-09-12 Telephone Nayeli Solis [facility] 1.2.840.114 [id number] Univers 00:00:00 00:00:00 Cam ADAM 350.1.13.10 it y [place].2.[place] [id number] [address] 2022-09-12 2022-09-12 Patient Doctor [facility] 1.2.840.114 [id number] Univers 00:00:00 00:00:00 Secure Msg Unassigned, HILARIA 350.1.13.10 ity of [place] 4.2.7.2.686 [place] [id number] Fl dical NAL 134 [facility] 2022-09-11 2022-09-11 Pmo Lead Jett Posey Lab Main [facility] 1.2.8 40.114 [id number] Univers 12:45:00 13:00:00 Visit Nayeli Solis 350.1.13.10 ity of [facility] 4.2.7.2.686 [place] [id number] Fl dical NAL 353 [facility] 2022-09-11 2022-09-11 Outpatient R NAYELI SOLIS [facility] [id number] Univers 11:15:00 12:34:05 ity of [facility] 2022-09-11 2022-09-11 Routine [facility] 1.2.612.111 [id number] Univers 11:15:00 12:34:05 Johnathan MANRIQUE 350.1.13.10 ity of Visit [place] 4.2.7.2.686 [place] [facility] [phone] Fl dical [place] [address] [address] [facility] 2022-09-11 2022-09-11 Patient Diomedes [facility] 1.2.427.334 [id number] Univers 00:00:00 00:00:00 Outreach Nuvia [place] 350.1.13.10 i ty of PEDIATRIC 4.2.7.2.686 [facility] [id number] [facility] [address] 2022-09-10 2022-09-10 Outpatient R IRMA [facility] [id number] Univers 15:00:00 15:00:00 ity of [facility] 2022-09-06 2022-09-06 Outpatient R IRMA [facility] [id number] Univers 08:00:00 08:00:00 it of [facility] 2022-09-02 2022-09-02 Outpatient [facility] [id number] Univers 02:22:00 05:05:00 MONICA ity of [facility] 2022-09-02 2022-09-02 [facility] 1.2.578.795 [id number] Univers 02:22:00 05:05:00 Monica MANRIQUE 350.1.13.10 ity of [place] 4.2.7.2.686 [place] [id number] [facility] [address] 2022-08-26 2022-08-26 Outpatient P IRMA [facility] JOSE [id number] Univers 02:05:00 07:04:00 ity of [facility] 2022-08-26 2022-08-26 Hospital [facility] 1.2.840.114 [id number] Univers 02:05:00 07:04:00 Encounter [facility] 350.1.13.10 ity of [facility] 4.2.7.2.686 [facility] [id number] [facility] [address] 2022-08-23 2022-08-23 Telemedici FellowJl [facility] 1 .2.840.114 [id number] Univers 11:30:00 12:00:00 ne Visit Ramsey Galarzaevelyne Sadia MACHINE HEDDLE CLEANER 350.1 .13.10 ity of [facility] 4.2.7.2.686 Lui as MATERNAL [id number] [facility] 124 [facility] 2022-08-23 2022-08-23 Outpatient R RAMSEY [facility] [id number] Univers 11:30:00 11:30:00 GUNNAR it y of Tiffani MCCULLOUGH [facility] 2022-08-23 2022-08-23 Case [facility] 1.2.840.114 [id number] Univers 00:00:00 00:00:00 Management Royal [place] 350.1.13.10 ity of [facility] 4.2.7.2.686 [facility] [phone] [facility] [address] 2022-08-22 2022-08-22 Pmo Lead Ultrasound, HenrryUniversity Hospitals [facility] 1.2 .840.114 [id number] Univers 14:15:00 14:53:31 Visit Jaswinder Valle MACHINE HEDDLE CLEANER 350.1.13.10 ity of [facility] 4.2.7.2.686 Lui as MATERNAL [id number] [facility] ical & CHILD 369 [facility] 2022-08-22 2022-08-22 Outpatient P AJSWINDER VALLE [facility] [id number] Univers 14:15:00 14:15:00 JASWINDER VALLE ity [facility] 2022-08-14 2022-08-14 Outpatient R NAYELI SOLIS [facility] [id number] Univers 14:45:00 15:09:41 ity [facility] 2022-08-14 2022-08-14 Routine Nayeli Solis [facility] 1.2.986.798 [id number] Univers 14:45:00 15:09:41 Cam HIALRIA 350.1.13.10 ity of Visit [place]2.7.2.686 [place] [phone] Fl dical [address] 2022-08-09 2022-08-09 Telemedici Fellow, Jl Rmchp [facility] 1 .2.840.114 [id number] Univers 09:30:00 10:00:00 ne Visit Paradise Meza MACHINE HEDDLE CLEANER 350.1.13.10 ity of REGIONAL 4.2.7.2.686 Lui as MATERNAL [id number] Med ical & CHILD [address] [place] [address] 2022-08-09 2022-08-09 Outpatient R PARADISE MEZA [facility] [id number] Univers 09:30:00 09:30:00 PARADISE MEZA ity of [facility] 2022-08-09 2022-08-09 Patient Doctor UN[facility] 1.2.087.123 [id number] Univers 00:00:00 00:00:00 Secure Msg Unassigned, Y HEALTH 350.1.13.10 ity of [place] CLINICS 4[place]2.7.2.[place] [id number] [address] 2022-08-06 2022-08-06 Outpatient R AMINA BUITRAGO [facility] [id number] Univers 15:00:00 15:00:00 AMINA BUITRAGO ity of [facility] 2022-08-06 2022-08-06 Nurse Nurse, Lkj [facility] 1.2.840.114 [id number] Univers 10:00:00 10:40:09 Visit Amina Buitrago 350.1.13.10 ity of [place] 4.2.7.2.686 [place] HEALTH [id number] [address] 2022-08-05 2022-08-05 Telephone Deon [facility] 1.2.840.11 4 [id number] Univers 00:00:00 00:00:00 Royal [place] 350.1.13.10 it y of [place] 4.2.7.2.686 [place] HEALTH [id number] [address] 2022-07-30 2022-07-30 Outpatient R ROYAL ATKINSON [facility] B [id number] Univers 10:00:00 10:32:36 ROYAL ATKINSON [facility] 2022-07-30 2022-07-30 Routine [facility]il[facility] 1.2.840.114 [id number] Univers 10:00:00 10:32:36 Royal [place] 350.1.13.10 i ty of Visit WOMEN'[place] 4.2.7.2.686 [place] HEALTH [id number] [address] 2022-07-27 2022-07-27 Outpatient R [facility] [id number] Univers 14:30:00 14:30:00 ity [facility] 2022-07-25 2022-07-25 Case [facility] centerbabatundeUNIVERS[facility] 1.2.840.114 [id number] Univers 00:00:00 00:00:00 Management Royal [place] 350.1.13.10 ity of [place] 4.2.[place].2.686 [place] HEALTH [id number] [address] 2022-07-24 2022-07-24 Pmo Lead 1, [facility] 1.2. 840.114 [id number] Univers 15:00:00 15:46:35 Visit Mary Gonzalez MACHINE HEDDLE CLEANER 350.1.13.10 ity of [facility] 4.2.7.2.686 Lui as MATERNAL [id number] Med ical & CHILD [address] [place] [address] 2022-07-24 2022-07-24 Outpatient P LISA [facility] [id number] Univers 15:00:00 15:00:00 MARY rodriguez [facility] 2022-07-17 2022-07-17 Emergency X HALIE [facility] ERT [id number] Univers 13:31:00 16:23:00 SEFERINO rodriguez [facility] 2022-07-17 2022-07-17 Emergency Halie [facility] 1.2.840.114 10 [id number] Univers 13:31:00 16:23:00 Seferino MANRIQUE 350.1.13.10 i ty of [place] 4.2.7.2.686 [facility] [id number] [facility] [address] 2022-07-17 2022-07-17 Outpatient R [facility] [id number] Univers 15:15:00 15:15:00 ity [facility] 2022-07-17 2022-07-17 [facility]phone [facility] 1.2.840.11 4 [id number] Univers 00:00:00 00:00:00 Royal [place] 350.1.13.10 it y [place] [id number] [address] 2022-07-12 2022-07-12 Telephone [facility] 1.2.840.11 4 [id number] Univers 00:00:00 00:00:00 Robertojoseluis [place] 350.1.13.10 it y of WOMEN'S 4.2.7.2.686 [facility] [id number] [facility] [address] 2022-07-11 2022-07-11 Outpatient R [facility] [id number] Univers 15:15:00 15:15:00 ity [facility] 2022-07-11 2022-07-11 Telephone [facility] 1.2.840.11 4 [id number] Univers 00:00:00 00:00:00 Royal [place] 350.1.13.10 it y [place] [id number] [address] 2022-07-11 2022-07-11 Telephone TriExecNoteTr[facility] 1.2.840.11 4 [id number] Univers 00:00:00 00:00:00 Royal [place] 350.1.13.10 it y [place]2.[place] [id number] [address] 2022-07-11 2022-07-11 Telephone File[facility]rekTr[facility] 1.2.840.11 4 [id number] Univers 00:00:00 00:00:00 Royal [place] 350.1.13.10 it y of [place] 4[place]2.[place].2.[place] 294.2202340 [address] 2022-07-11 2022-07-11 Telephone Nayeli Solis [facility] 1.2.840.114 10 [id number] Univers 00:00:00 00:00:00 Cam HILARIA 350.1.13.10 i ty of [place] 4[place]2.7.2.686 [place] [id number] Fl liberty MONROY 134 [facility] 2022-07-09 2022-07-09 Telephone [facility] 1.2.840.11 4 [id number] Univers 00:00:00 00:00:00 Royal [place] 350.1.13.10 it y of [place] 4[place]2.[place].2.686 [place] 201.3912594 [address] 2022-07-05 2022-07-05 Pmo Lead Lab, Alvaro Crawley [facility] 1.2.840.1 14 [id number] Univers 09:30:00 10:31:55 Visit Royal Atkinson [facility] 350.1.13.1 0 ity of [facility] 4.2.7.2.686 Lui as BHAVIK?BLEA [id number] Fl liberty [address] MEDICAL OFFICE [facility] 2022-07-05 2022-07-05 Outpatient R ROYAL ATKINSON [facility] B [id number] Univers 09:30:00 09:30:00 ROYAL ATKINSON ity of [facility] 2022-07-05 2022-07-05 Patient Deon [facility] 1.2.840.114 [id number] Univers 00:00:00 00:00:00 Secure Msg Royal ADAM 350.1.13.10 ity [place] [id number] [address] 2022-07-02 2022-07-02 Outpatient R ROYAL ATKINSON [facility] B [id number] Univers 13:30:00 13:58:26 ROYAL ATKINSON ity of [facility] 2022-07-02 2022-07-02 Initial [facility] 1.2.840.114 [id number] Univers 13:30:00 13:58:26 Royal [place] 350.1.13.10 i ty of Visit WOMEN'S 4.2.7.2.686 [facility]ly [facility] [id number] [facility] [address] 2022-07-02 2022-07-02 Orders Doctor EMMANUEL 1.2.840.114 [id number] Univers 00:00:00 00:00:00 Only Unassigned, KHURRAM 350.1.13.[address] [place] [facility] 4.2.7.2.[id number] [facility] [address] 2022-06-18 2022-06-18 Outpatient R BAMBIBABATUNDE ROYAL [facility] B [id number] Univers 14:00:00 14:00:00 [facility]ITAL[facility]ANIROBERTOJOSELUIS [facility] 2022-06-04 2022-06-04 Outpatient P YOJANA PARKER [facility] O BY [id number] Univers 18:50:00 19:30:00 [facility] 2022-06-04 2022-06-04 [facility] 1.2.840.114 1 [id number] Univers 18:50:00 19:30:00 Encounter sYojana 350.1.13.10 ity of [place] 4.2.7.2.686 [facility] [id number] [place] [address] 2022-05-02 2022-05-02 Emergency X HAZEL, [facility] ERT [id number] Univers 16:43:00 20:01:00 [facility] 2022-05-02 2022-05-[address] [facility] 1.2.840.114 10 [id number] Univers 16:43:00 20:01:00 Edgar Zachary MANRIQUE 350.1.13.10 i ty of [place] 4.2.7.2.686 [facility] [id number] [facility] [address] 2022-04-01 2022-04-02 Emergency EM SANTIAGO Shepherd TAVO [id number] [facility] 21:11:00 00:48:00 Francisco 23 [facility] 2022-04-01 2022-04-01 Outpatient VICKEY Shepherd [id number] [facility] 23:32:00 23:32:00 Francisco 51 [facility] 2022-03-20 2022-03-20 Outpatient R NAYELI SOLIS [facility] [id number] Univers 14:30:00 14:30:00 ity of [facility] 2022-03-13 2022-03-13 Patient Nayeli Solis [facility] 1.2.873.774 [id number] Univers 00:00:00 00:00:00 Secure Msg Johnathan MANRIQUE 350.1.13.10 ity [facility] 4.2.7.2.686 [facility] [id number] Fl dical [address] 2022-03-08 2022-03-08 Outpatient R OSVALDO [facility] [id number] Univers 08:30:00 08:30:00 ANDRES garciay o f [facility] 2022-03-07 2022-03-07 Telephone Only, [facility] 1.2.231.521 [id number] Univers 00:00:00 00:00:00 Ang-[facility] MACHINE HEDDLE CLEANER 350.1.13.10 ity of Open Access [facility] 4.2.7.2.686 [facility] [id number] Med ical & CHILD [address] [place] [address] 2022-03-06 2022-03-06 Emergency X RIDCISCO, [facility] ERT [id number] Univers 15:49:00 19:17:00 IRVIN it y of [facility] 2022-03-06 2022-03-06 Emergency [place], [facility] 1.2.450.188 [id number] Univers 15:49:00 19:17:00 Irvin JERSEY 350.1.13.10 ity [facility] 4.2.7.2.686 [place] [id number] [address] 2022-03-05 2022-03-05 Outpatient R YOJANA PARKER [facility] U TMB [id number] Univers 09:30:00 09:30:00 CHRISAnabelleYOJANA JOHN [facility] 2022-02-12 2022-02-12 Outpatient R DELGADO [facility] [id number] Univers 10:00:00 10:00:00 ДМИТРИЙ [facility] 2022-02-08 2022-02-08 Outpatient R REUBEN SAMREEN [facility] [id number] Univers 15:15:00 15:15:00 REUBEN SAMREEN [facility] 2021-12-30 2021-12-30 Emergency X CHAGO [facility] ERT [id number] Univers 04:02:00 05:49:00 JORDEN BROOKE [facility] 2021-12-30 2021-12-30 Emergency [facility] 1.2.840.114 [id number] Univers 04:02:00 05:49:00 Jorden [employer] 350.1.13.10 it y of [place].2.[place] [id number] [address] ([facility]) 2021-12-20 2021-12-20 [facility] 1.2.488.630 [id number] Univers 00:00:00 00:00:00 Eleanor Brice MACHINE HEDDLE CLEANER 350.1.13.10 it y of REGIONAL 4.2.7.2.686 Lui as MATERNAL [id number] [facility] ical & CHILD [address] [place] [address] 2021-12-18 2021-12-18 Outpatient R ANETTE MORAN [facility] [id number] Univers 15:00:00 15:00:00 [facility] 2021-12-13 2021-12-13 Emergency [facility] [id number] Univers 16:45:00 19:49:00 MAKAYLA sharma [facility] 2021-12-13 2021-12-13 Emergency [facility] 1.2.840.114 [id number] Univers 16:45:00 19:49:00 [facility] 350.1.13.10 i ty of [place].2.686 [place] [id number] [address] ([facility]) 2021-12-11 2021-12-11 Outpatient R RICARDOXANDER [facility] [id number] Univers 09:30:00 09:30:00 [facility] 2021-12-08 2021-12-08 Outpatient R [facility] [id number] Univers 15:00:00 15:00:00 ity [facility] 2021-12-04 2021-12-04 Outpatient R [facility] [id number] Univers 14:00:00 14:00:00 [facility] 2021-12-01 2021-12-01 Out[facility] [id number] Univers 13:20:00 13:20:00 ALISTAIR [facility] 2021-11-29 2021-11-29 Outpatient [facility] [id number] Univers 08:00:00 08:00:00 [facility]LEANOR [facility] 2021-11-24 2021-11-24 Outpatient R [facility] [id number] Univers 14:50:00 14:50:00 [facility] 2021-11-17 2021-11-17 Telephone [facility] 1.2.840.114 [id number] Univers 00:00:00 00:00:00 Latasha Campbell MACHINE HEDDLE CLEANER 350.1.13.10 ity of [facility] 4.2.7.2.686 Lui as MATERNAL [id number] [facility] & [address] 2021-11-13 2021-11-13 Telephone [facility] 1.2.840.114 [id number] Univers 00:00:00 00:00:00 Eleanor Brice MACHINE HEDDLE CLEANER 350.1.13.10 it y of REGIONAL 4.2.7.2.686 Lui as MATERNAL [id number] [facility] & [address] 2021-11-10 2021-11-10 Outpatient [facility] [id number] Univers 16:00:00 16:47:49 ELEANOR rodriguez [facility] 2021-11-10 2021-11-10 Routine [facility] 1.2.076.157 [id number] Univers 16:00:00 16:47:49 Eleanor N MACHINE HEDDLE CLEANER 350.1.13.10 i ty of [facility] 4.2.7.2.686 Lui as MATERNAL [id number] [facility] & [address] 2021-11-10 2021-11-10 Oneida Ryder [facility] 1.2.840.114 [id number] Univers 00:00:00 00:00:00 HILARIA 350.1.13.10 i ty of [place]2.7.2.686 [place] [id number] Fl dic[address] 2021-11-09 2021-11-09 Outpatient Jolynn [facility] [id number] Univers 15:30:00 15:30:00 NICA sharma [facility] 2021-11-07 2021-11-07 Outpatient Jolynn [facility] [id number] Univers 14:30:00 14:30:00 NICA sharma [facility] 2021-11-07 2021-11-07 Telephone Nayeli Solis [facility] 1.2.840.114 [id number] Univers 00:00:00 00:00:00 Johnathan MANRIQUE 350.1.13.10 i ty of [place] 4.2.7.2.686 [place] [id number] [address] 2021-10-27 2021-10-27 Telephone Provider, [facility] 1.2.840.114 [id number] Univers 00:00:00 00:00:00 Pea-Rmchp MACHINE [employer]LE [employer]ER 350.1.13.10 ity of Temp [facility] 4.2.7.2.686 Lui as MATERNAL [phone] [facility] [address] [place] [address] 2021-10-26 2021-10-26 Outpatient Jolynn [facility] [id number] Univers 08:30:00 08:30:00 LATASHA sharma [facility] 2021-10-24 2021-10-24 Orders Doctor BENITEZ 1.2.840.114 [id number] Univers 00:00:00 00:00:00 Only Unassigned, KHURRAM 350.1.13.10 ity of [place] [facility] 4.2.7.2.686 Lui as [phone] [address] 2021-10-13 2021-10-13 Orders Doctor EMMANUEL 1.2.840.114 [id number] Univers 00:00:00 00:00:00 Only Unassigned, KHURRAM 350.1.13.10 ity of [place] [facility] 4.2.7.2.686 Lui as [phone] [address] 2021-10-06 2021-10-06 Routine Jerardo Oneida [facility] 1.2.840.114 [id number] Univers 15:45:00 15:45:00 HILARIA 350.1.13.10 ity of [place] [phone] [address] 2021-10-06 2021-10-06 Outpatient R ONEIDA [facility] [id number] Univers 15:45:00 15:19:54 ity of [facility] 2021-10-06 2021-10-06 Telephone Lu [facility] 1.2.840.114 [id number] Univers 00:00:00 00:00:00 Yuliana MANRIQUE 350.1.13.10 i ty [place] [phone] [address] 2021-10-06 2021-10-06 Telephone Nayeli Solis [facility] 1.2.840.114 [id number] Univers 00:00:00 00:00:00 Johnathan MANRIQUE 350.1.13.10 i ty of [place] [phone] [address] 2021-09-26 2021-09-28 Inpatient P NAYELI SOLIS NYRAJ JOSE [id number] Univers 11:50:00 15:10:00 ity of [facility] 2021-09-26 2021-09-28 Hospital Nayeli Solis [facility] 1.2.840.114 [id number] Univers 11:50:00 15:10:00 Encounter Johnathan [place] 350.1.13.10 ity of [place] 4.2.7.2.686 [facility] [phone] [facility] [address] 2021-09-26 2021-09-26 Anesthesia Anthony [facility] 1.2.840.114 [id number] Univers 17:22:24 17:22:24 Event Elkin Lucas [place] 350.1.13.10 ity of [place] 4.2.7.2.686 [facility] [phone] [place] [id number] [place] 2021-09-26 2021-09-26 Pmo Lead Ultrasound, [facility] 1. .840.114 [id number] Univers 10:30:00 11:00:00 Visit Ramsey Monica Sadia MANRIQUE 350.1 .13.10 ity of [facility] 4.2.7.2.686 [facility] PROFESSIO [phone] Fl dical [address] 2021-09-26 2021-09-26 Outpatient P [facility] [id number] Univers 10:30:00 10:30:00 ity [facility] 2021-09-26 2021-09-26 Outpatient P RAMSEY [facility] [id number] Univers 10:30:00 10:30:00 GUNNAR it y of SADIA Lucas [facility] 2021-09-26 2021-09-26 Surgery Nayeli Solis [facility] 1..309.047 [id number] Univers 00:00:00 00:00:00 Cam [place] 350.1.13.10 i ty of [facility] 4.2.7.2.686 [facility] [phone] [facility] [address] 2021-09-20 2021-09-20 Outpatient R NAYELI SOLIS [facility] [id number] Univers 16:15:00 16:15:00 ity [facility] 2021-09-20 2021-09-20 Outpatient R IRMA NAYELI [facility] [id number] Univers 16:15:00 16:15:00 ity [facility] 2021-09-19 2021-09-19 Patient Doctor [facility] 1.2.840.114 [id number] Univers 00:00:00 00:00:00 Secure Msg Unassigned HILARIA 350.1.13.10 ity of [place] [phone] Fl dical NAL [address] [place] [address] 2021-09-06 2021-09-06 Outpatient R [facility] [id number] Univers 09:15:00 09:15:00 ity of [facility] 2021-09-04 2021-09-04 Outpatient R NAYELI SOLIS [facility] [id number] Univers 15:00:00 16:07:15 ity of [facility] 2021-09-04 2021-09-04 Nurse Nurse, [facility] 1.2.840.114 [id number] Univers 15:00:00 16:07:15 Visit Nayeli Solis Johnathan MANRIQUE 350.1.13.10 it[place] of [place] [phone] Fl dical NAL [address] [place] [address] 2021-09-04 2021-09-04 Outpatient R [facility] [id number] Univers 10:00:00 10:00:00 ity of [facility] 2021-09-01 2021-09-01 Case Nayeli Solis [facility] 1.2.663.704 [id number] Univers 00:00:00 00:00:00 Management Cam HILARIA 350.1.13.10 ity of [place] [phone] Fl dical NAL [address] [place] [address] 2021-08-31 2021-08-31 Outpatient R LU [facility] [id number] Univers 16:15:00 16:47:37 YULIANA itkristian [facility] 2021-08-31 2021-08-31 Routine Lu [facility] 1.2.163.279 [id number] Univers 16:15:00 16:47:37 Yuliana MANRIQUE 350.1.13.10 ity of [place] [phone] Fl dical NAL 134 [facility] 2021-08-30 2021-08-30 Pmo Lead Pozachary, Adc [facility] 1.2.8 40.114 [id number] Univers 15:45:00 16:00:00 Visit Nayeli Solis Johnathan MANRIQUE 350.1.13.10 ity of [facility] 4.[place].7.2.[place] [phone] Fl dical NAL 353 [facility] 2021-08-30 2021-08-30 Outpatient R SOLIS [facility] [id number] Univers 15:45:00 15:45:00 ity of [facility] 2021-08-30 2021-08-30 Outpatient R SOLIS [facility] [id number] Univers 15:45:00 15:45:00 ity [facility] 2021-08-08 2021-08-08 Outpatient R [facility] [id number] Univers 13:00:00 13:00:00 ity [facility] 2021-08-03 2021-08-03 Routine [facility] 1.2.150.195 [id number] Univers 16:00:00 16:00:00 Johnathan MANRIQUE 350.1.13.10 ity of [place]2.[place] [phone] Fl dical NAL [address] [place] [address] 2021-08-03 2021-08-03 Outpatient R IRMA [facility] [id number] Univers 16:00:00 15:03:03 ity of [facility] 2021-08-01 2021-08-01 Pmo Lead Ultrasound, Adc [facility] 1.2 .840.114 [id number] Univers 09:30:00 10:15:00 Visit Mary Gonzalez 350.1.13.10 ity of [facility] 4.2.7.2.[place] [phone] Fl dical NAL [address] [place] [address] 2021-08-01 2021-08-01 Outpatient P LISA [facility] [id number] Univers 09:30:00 09:30:00 MARY [facility] 2021-07-23 2021-07-23 Orders Doctor EMMANUEL 1.2.840.114 [id number] Univers 00:00:00 00:00:00 Only Unassigned, KHURRAM 350.1.13.[address] [place] [facility] 4.2.7.2.686 Lui as [phone] [address] 2021-07-06 2021-07-06 Outpatient R [facility] [id number] Univers 14:00:00 14:00:00 YULIANA [facility] 2021-07-06 2021-07-06 Outpatient R LU [facility] [id number] Univers 13:00:00 13:34:24 [facility] 2021-07-06 2021-07-06 [facility]ine [facility] 1.2.490.240 [id number] Univers 13:00:00 13:34:24 Yuliana MANRIQUE 350.1.13.10 ity of [place] [phone] Fl dical NAL [address] [place] [address] 2021-06-23 2021-06-23 Pmo Lead 1, [facility] Room [facility] 1.2. 840.114 [id number] Univers 08:30:00 09:30:00 Visit Mary Gonzalez MACHINE HEDDLE CLEANER 350.1.13.10 ity of [facility] 4.2.7.2.686 Lui as MATERNAL [phone] Med ical & CHILD [address] [place] [address] 2021-06-23 2021-06-23 Outpatient P LISA [facility] [id number] Univers 08:30:00 08:30:00 MARY [facility] 2021-06-19 2021-06-19 Patient Nayeli Solis [facility] 1.2.422.502 [id number] Univers 00:00:00 00:00:00 Secure Msg Johnathan MANRIQUE 350.1.13.10 ity of [place].7.2.[place] [phone] Fl dical NAL [address] [place] [address] 2021-06-122021-06-12 Outpatient R LU [facility] [id number] Univers 16:00:00 16:00:00 YULIANA ity of [facility] 2021-06-12 2021-06-12 Patient Oneida Kurtz [facility] 1.2.840.114 [id number] Univers 00:00:00 00:00:00 Secure Msg ADAM 350.1.13.10 ity of [place] [phone] [address] 2021-06-12 2021-06-12 Patient Nuvia Garcia [facility] 1.2.840.114 [id number] Univers 00:00:00 00:00:00 Secure Msg A ADAM 350.1.13.10 ity of PEDIATRIC 4.2.7.2.686 Te [facility] [phone] [address] 2021-06-09 2021-06-09 Outpatient R DANI ZHU [facility] [id number] Univers 09:45:00 13:03:01 ity of [facility] 2021-06-09 2021-06-09 Telemedici Nisha Feliz [facility] 1.2.8 40.114 [id number] Univers 09:45:00 13:03:01 ne Visit Dani Zhu MACHINE HEDDLE CLEANER 350.1.13.10 ity of REGIONAL 4.2.7.2.686 Lui as MATERNAL [phone] Med ical & CHILD [address] [place] [address] 2021-06-08 2021-06-08 Routine Nayeli Solis [facility] 1.2.258.276 [id number] Univers 15:30:00 15:39:20 Cam JERSE[place] 350.1.13.10 ity of [place] [phone] Fl dic[address] 2021-06-08 2021-06-08 Outpatient R NAYELI SOLIS [facility] [id number] Univers 15:30:00 15:39:20 ity of [facility] 2021-06-08 2021-06-08 Pmo Lead 2, Adc Lab [facility] 1.2.840.114 [id number] Univers 14:30:00 14:45:00 Visit Nayeli Solis [place] 350.1.13.10 ity of [facility] 4.2.7.2.[place] [phone] Fl dical NAL 353 [facility] 2021-06-08 2021-06-08 Patient Nayeli Solis [facility] 1.2.521.133 [id number] Univers 00:00:00 00:00:00 Secure Msg Cam [place] 350.1.13.10 ity of [place].2.[place] [phone] Fl dical NAL 134 [facility] 2021-06-07 2021-06-07 Patient Nayeli Solis [place] 1.2.386.770 [id number] Univers 00:00:00 00:00:00 Secure Msg Cam [place] 350.1.13.10 ity of [place] [phone] Fl dical NAL 134 [facility] 2021-06-05 2021-06-06 Outpatient X NAYELI SOLIS [facility] JOSE [id number] Univers 20:54:00 14:21:00 ity of [facility] 2021-06-05 2021-06-06 Emergency Nayeli Solis [facility] 1.2.840.114 [id number] Univers 20:54:00 14:21:00 Cam [place] 350.1.13.10 i ty of [facility] [place].2.7.2.[place] [phone] [facility] [address] [place] 2021-05-22 2021-05-22 Patient Doctor [facility] 1.2.840.114 [id number] Univers 00:00:00 00:00:00 Secure Msg Unassigned, [place] 350.1.13.10 ity of [place].2.[place] [phone] Fl dical NAL 134 [facility] 2021-05-19 2021-05-19 Pmo Lead 2, Adc Lab [facility] 1.2.840.114 [id number] Univers 16:00:00 16:15:00 Visit Nayeli Solis Johnathan MANRIQUE 350.1.13.10 ity of [place]7.[place] [phone] Fl dical NAL 353 [facility] 2021-05-19 2021-05-19 Outpatient R NAYELI SOLIS [facility] [id number] Univers 16:00:00 16:00:00 ity of [facility] 2021-05-19 2021-05-19 Telephone Nayeli Solis [facility] 1.2.840.114 [id number] Univers 00:00:00 00:00:00 Johnathan MANRIQUE 350.1.13.10 i ty of [place] [phone] Fl dical NAL 134 [facility] 2021-05-15 2021-05-15 Telephone Nayeli Solis [facility] 1.2.840.114 [id number] Univers 00:00:00 00:00:00 Johnathan MANRIQUE 350.1.13.10 i ty of [place] 4[place]2.7.2.[place] [phone] Fl dical NAL [address] [place] [address] 2021-05-11 2021-05-11 Outpatient R LU [facility] [id number] Univers 14:30:00 15:36:41 YULIANA itkristian [facility] 2021-05-11 2021-05-11 Routine Lu [facility] 1.2.468.679 [id number] Univers 14:30:00 15:36:41 Yuliana MANRIQUE 350.1.13.10 ity of Visit [place] 4.2.7.2.[place] [phone] Fl dical NAL [address] [place] [address] 2021-05-08 2021-05-08 Outpatient R LU [facility] [id number] Univers 10:30:00 10:30:00 YULIANA rodriguez [facility] 2021-05-08 2021-05-08 Pmo Lead 2, Adc Lab [facility] 1.2.840.114 [id number] Univers 10:30:00 10:30:00 Visit Yuliana Leigh 350.1.13.10 ity of [facility] 4.2.7.2.[place] [phone] Fl dical NAL 353 [facility] 2021-05-08 2021-05-08 Orders Doctor EMMANUEL 1.2.840.114 [id number] Univers 00:00:00 00:00:00 Only Unassigned, KHURRAM 350.1.13.[address] [place] [facility] 4.2.7.2.686 Lui as [phone] [address] 2021-05-03 2021-05-03 Outpatient R [facility] [id number] Univers 10:15:00 10:15:00 ity of [facility] 2021-05-03 2021-05-03 Telephone Nayeli Solis [facility] 1.2.840.114 [id number] Univers 00:00:00 00:00:00 Cam [place] 350.1.13.10 i ty of [facility] 4.2.7.2.[place] [phone] Fl dical NAL 134 [facility] 2021-05-01 2021-05-01 Telephone Nayeli Solis NYRAJ 1.2.840.114 [id number] Univers 00:00:00 00:00:00 Cam HILARIA 350.1.13.10 i ty of [place]2.7.2.[place] [phone] Fl dical NAL 134 [facility] 2021-04-28 2021-04-28 Telephone Nayeli Solis NYRAJ 1.2.840.114 [id number] Univers 00:00:00 00:00:00 Cam [place] 350.1.13.10 i ty of [facility] 4.2.7.2.[place] [phone] Fl dical NAL 134 [facility] 2021-04-24 2021-04-24 Pmo Lead 2, Jett Lab [facility] 1.2.840.114 [id number] Univers 11:00:00 11:15:00 Visit Nayeli SolisTON 350.1.13.10 ity of [facility] 4.2.7.2.[place] [id number] Fl dical NAL 353 [facility] 2021-04-24 2021-04-24 Outpatient R NAYELI SOLIS [facility] [id number] Univers 11:00:00 11:00:00 ity of [facility] 2021-04-13 2021-04-13 Outpatient R NAYELI SOLIS [facility] [id number] Univers 13:00:00 14:16:00 ity of [facility] 2021-04-13 2021-04-13 Routine [facility] 1.2.442.298 [id number] Univers 13:00:00 14:16:00 Cam HILARIA 350.1.13.10 ity of [place].7.2.[place] [phone] Fl dical NAL 134 [facility] 2021-04-07 2021-04-07 Pmo Lead 2, Adc Lab [facility] 1.2.840.114 [id number] Univers 09:15:00 09:20:24 Visit Nayeli SolisMUKESH 350.1.13.10 ity of [place] 4[place]2.7.2.[place] [phone] Fl dical NAL 353 [facility] 2021-04-07 2021-04-07 Outpatient R NAYELI SOLIS [facility] [id number] Univers 09:15:00 09:15:00 ity of [facility] 2021-04-07 2021-04-07 Case Nayeli Solis [facility] 1.2.840.114 [id number] Univers 00:00:00 00:00:00 Management Johnathan BENT[place] 350.1.13.10 ity [place] [id number] [facility] [address] [place] 2021-03-24 2021-03-24 Orders Doctor EMMANUEL 1.2.840.114 [id number] Univers 00:00:00 00:00:00 Only Unassigned, KHURRAM 350.1.13.[address] [place] [facility] 4.2.7.2.[phone] [facility] [address] 2021-03-21 2021-03-21 Outpatient R [facility] [id number] Univers 08:00:00 08:00:00 ity of [facility] 2021-03-20 2021-03-20 Patient Doctor EMMANUEL 1.2.840.114 [id number] Univers 00:00:00 00:00:00 Secure Msg Unassigned, KHURRAM 350.1.13.10 ity of [place] [facility] 4.2.7.2.[phone] [facility] [address] [place] 2021-03-16 2021-03-16 Outpatient R IRMA NAYELI [facility] [id number] Univers 14:30:00 15:45:46 ity of [facility] 2021-03-16 2021-03-16 Initial [facility] 1.2.150.064 [id number] Univers 14:30:00 15:45:46 Johnathan MANRIQUE 350.1.13.10 ity of [place]7.2.[place] [phone] Fl dical NAL [address] [place] [address] 2021-03-16 2021-03-16 Orders Doctor EMMANUEL 1.2.840.114 [id number] Univers 00:00:00 00:00:00 Only Unassigned, KHURRAM 350.1.13.10 ity of [place] [facility]PITAL 4.2.7.2.[phone] [facility] [address] [place] 2021-03-16 2021-03-16 Letter Nayeli Solis [facility] 1.2.094.633 [id number] Univers 00:00:00 00:00:00 (Out) Johnathan MANRIQUE 350.1.13.10 i ty of [place]2.7.2.[place] [phone] Fl dical NAL [address] [place] [address] 2021-01-03 2021-01-03 Outpatient R ONEIDA KURTZ [facility] [id number] Univers 10:45:00 10:45:00 ity of [facility] 2020-10-27 2020-10-27 Outpatient R ONEIDA KURTZ [facility] [id number] Univers 08:00:00 08:00:00 ity of [facility] 2020-10-24 2020-10-24 Outpatient R ONEIDA KURTZ [facility] [id number] Univers 13:45:00 13:45:00 ity of [facility] 2020-10-14 2020-10-14 Patient Doctor CAMPBELL SAENZ 1.2.986.475 [id number] Univers 00:00:00 00:00:00 Secure Msg UnassignedADAM 350.1.13.10 ity of [place].2.7.2.[place] [phone] [address] 2020-10-14 2020-10-14 Patient Oneida Kurtz NYRAJ Saenz 1.2.840.114 [id number] Univers 00:00:00 00:00:00 Secure Msg Adam 350.1.13.10 ity of Women's 4.2.7.2.686 [facility] [id number] [address] 2020-10-03 2020-10-03 Outpatient R J[facility]ARDOONEIDA [facility] [id number] Univers 11:15:00 11:15:00 ity of [facility] 2020-09-28 2020-09-28 Patient Oneida Kurtz [facility] Saenz 1.2.840.114 [id number] Univers 00:00:00 00:00:00 Secure Msg Adam 350.1.13.10 ity of Women's 4.2.7.2.686 [facility] [id number] [address] 2020-09-19 2020-09-19 Outpatient R ONEIDA KURTZ [facility] [id number] Univers 13:00:00 13:00:00 ity of [facility] 2020-09-15 2020-09-15 Outpatient R ONEIDA KURTZ [facility] [id number] Univers 08:15:00 08:15:00 ity of [facility] 2020-09-12 2020-09-12 Orders Doctor EMMANUEL 1.2.840.114 [id number] Univers 00:00:00 00:00:00 Only Unassigned, KHURRAM 350.1.13.[address] [place] [facility] 4.2.7.2.686 Lui [phone] [address] 2020-08-30 2020-08-30 Outpatient R ONEIDA KURTZ [facility] [id number] Univers 14:30:00 14:30:00 ity of [facility] 2020-08-22 2020-08-25 Hospital Oneida Kurtz [facility] 1.2.840.114 [id number] Univers 18:31:00 14:15:00 Encounter Hilaria 350.1.13.10 ity of [place] 4.2.7.2.686 [facility] [phone] [place] [address] [place] 2020-08-24 2020-08-24 Anesthesia Lorelei [facility] 1.2.840.114 [id number] Univers 20:02:47 20:02:47 Event Nahun Manrique 350.1.13.10 i ty of [place] 4.2.7.2.686 [facility] [phone] [address] 2020-08-23 2020-08-24 Anesthesia Conrad Pritchard [facility] 1.2.84 0.114 [id number] Univers 20:45:00 13:15:00 Event Tata Cowan 350.1.13.10 ity of [place] 4.2.7.2.686 [facility] [id number] [place] [address] [place] 2020-08-22 2020-08-22 Outpatient R ONEIDA KURTZ [facility] [id number] Univers 16:15:00 16:15:00 ity of [facility] 2020-08-15 2020-08-15 Outpatient R ONEIDA KURTZ [facility] [id number] Univers 13:30:00 13:30:00 ity of [facility] 2020-08-15 2020-08-15 Orders Doctor BENITEZ 1.2.840.114 [id number] Univers 00:00:00 00:00:00 Only Unassigned, KHURRAM 350.1.13.[address] [place] [facility] 4.2.7.2.686 [facility] [phone] [place] [address] [place] 2020-07-28 2020-07-28 Outpatient R ONEIDA KURTZ [facility] [id number] Univers 13:00:00 13:00:00 ity of [facility] 2020-07-20 2020-07-20 Pmo Lead Ultrasound, [facility] 1.2 .840.114 [id number] Univers 11:29:12 11:59:12 Visit Paradise Meza MACHINE HEDDLE CLEANER 350.1.13.10 ity of [facility] 4.2.7.2.686 Lui as MATERNAL [phone] [facility] ical & CHILD [address] [place] [address] 2020-07-20 2020-07-20 Outpatient P [facility] [id number] Univers 11:30:00 11:30:00 ity [facility] 2020-07-14 2020-07-14 Outpatient R ONEIDA KURTZ [facility] [id number] Univers 13:30:00 13:30:00 ity [facility] 2020-06-30 2020-06-30 Pmo Lead Jett Posey [facility] Main [facility] 1.2.8 40.114 [id number] Univers 12:32:56 12:47:56 Visit Oneida Kurtz [place] 350.1.13.10 ity [facility] [place].2.7.2.[place] [phone] Fl dical [address] 2020-06-30 2020-06-30 Outpatient R ONEIDA KURTZ [facility] [id number] Univers 11:15:00 11:15:00 ity [facility] 2020-06-30 2020-06-30 Orders Doctor EMMANUEL 1.2.840.114 [id number] Univers 00:00:00 00:00:00 Only Unassigned, KHURRAM 350.1.13.[address] [place] [facility] 4.2.7.2.686 Lui as [phone] [address] 2020-06-20 2020-06-20 Pmo Lead [facility] 1.2 .840.114 [id number] Univers 08:33:48 09:03:48 Visit Paradise Meza MACHINE HEDDLE CLEANER 350.1.13.10 ity [facility] 4.2.7.2.686 Lui as MATERNAL [id number] [facility] [address] 2020-06-20 2020-06-20 Outpatient P [facility] [id number] Univers 08:45:00 08:45:00 ity of [facility] 2020-06-14 2020-06-14 Outpatient ONEIDA URIBE [facility] [id number] Univers 13:45:00 13:45:00 ity [facility] 2020-05-18 2020-05-18 Pmo Lead Bhavna Nunez [facility] 1.2 .840.114 [id number] Univers 14:39:45 15:39:45 Visit Sadia Hays MACHINE HEDDLE CLEANER 350.1. 13.10 ity of [facility] 4.2.7.2.686 Lui as MATERNAL [phone] [facility] & CHILD [address] [place] [address] 2020-05-18 2020-05-18 Outpatient P [facility] [id number] Univers 13:30:00 13:30:00 ity [facility] 2020-05-17 2020-05-17 Outpatient ONEIDA URIBE [facility] [id number] Univers 15:15:00 15:15:00 ity [facility] 2020-05-12 2020-05-12 Orders Doctor EMMANUEL 1.2.840.114 [id number] Univers 00:00:00 00:00:00 Only Unassigned, KHURRAM 350.1.13.[address] [place] [facility] 4.2.7.2.686 Lui as [id number] [address] 2020-05-04 2020-05-04 Outpatient P [facility] [id number] Univers 11:00:00 11:00:00 ity [facility] 2020-05-03 2020-05-03 Outpatient R CRISTOBAL KURTZN [facility] [id number] Univers 08:00:00 08:00:00 ity [facility] 2020-04-21 2020-04-21 Outpatient P [facility] [id number] Univers 08:00:00 08:00:00 ity [facility] 2020-04-07 2020-04-07 Pmo Lead Jett Posey [facility] 1.2.840.114 [id number] 09:56:41 10:11:41 Visit [facility] 350.1.13.10 [place] 4.2.7.2.686 Professio [phone] [address] 2020-04-07 2020-04-07 Pmo Lead Kalpesh, [facility] Lab Main [facility] 1.2.8 40.114 [id number] Univers 09:56:41 10:11:41 Visit Oneida Kurtz [id number] ity [facility] [id number] [phone] [address] 2020-04-07 2020-04-07 Outpatient R ONEIDA KURTZ [facility] [id number] Univers 08:30:00 08:30:00 ity of [facility] 2020-03-15 2020-03-15 Pmo Lead Kalpesh, [facility] 1.2.840.114 [id number] 13:44:30 13:59:30 Visit Lab Main [place] [id number] [place] [id number] Professio [id number] [address] 2020-03-15 2020-03-15 Pmo Lead Kalpesh, [facility] Lab Main [facility] 1.2.8 40.114 [id number] [facility] 13:44:30 13:59:30 Visit Oneida Kurtz [id number] ity [facility] [id number] [phone] [address] 2020-03-15 2020-03-15 Outpatient R ONEIDA KURTZ [facility] [id number] Univers 12:00:00 12:00:00 ity of [facility] 2020-03-15 2020-03-15 Orders Doctor EMMANUEL 1.2.840.114 [id number] Univers 00:00:00 00:00:00 Only Unassigned, KHURRAM [id number] [facility] [id number] Lui as [phone] [address] 2020-03-10 2020-03-10 Outpatient R ONEIDA KURTZ [facility] [id number] Univers 10:00:00 10:00:00 ity of [facility] 2020-02-11 2020-02-11 Outpatient R ONEIDA KURTZ [facility] [id number] Univers 14:45:00 14:45:00 ity [facility] 2020-02-11 2020-02-11 Outpatient R ONEIDA KURTZ [facility] [id number] Univers 08:15:00 08:15:00 ity [facility] 2020-01-20 2020-01-20 Oneida Johns [facility] 1.2.840.114 [id number] 00:00:00 00:00:00 [place] [id number] [place] 4.2.7.2.686 Professio [phone] [address] 2020-01-20 2020-01-20 Oneida Johns [facility] 1.2.840.114 [id number] Univers 00:00:00 00:00:00 [place] 350.1.13.10 i ty [place]2.[place] [phone] Fl dical [address] 2020-01-14 2020-01-14 Outpatient R [facility] [id number] Univers 14:45:00 14:45:00 ity [facility] 2020-01-14 2020-01-14 Orders Doctor EMMANUEL 1.2.840.114 [id number] Univers 00:00:00 00:00:00 Only Unassigned, KHURRAM 350.1.13.[address] [place] [facility] 4.2.7.2.686 Lui as [phone] [address] Results Test Description Test Time Test Comments Results Result Comments Source POCT GLUCOSE (AUTOMATED) 2022-10-10 02:45:41 Test Item Value Reference Range Interpretation Comme nts POCT GLU (test code = 9684066066) 134 mg/dL 70-110 H Lab Interpretation (test code = 62088-8) Abnormal [facility] OR MARK ONLY - [id number] 07:33:02 Test Item Value Reference Range Interpretation Comments RPR (Qualitative) (test code = Nonreactive Nonreactive 45062-2) Lab Interpretation (test code = Normal 84730-5) [facility] OR MARK ONLY - [id number] 07:33:02 Test Item Value Reference Range Interpretation Comments RPR (Qualitative) (test code = Nonreactive Nonreactive 88507-8) Lab Interpretation (test code = Normal 67167-2) [facility] GLUCOSE (AUTOMATED)2022-10-08 21:27:01 Test Item Value Reference Range Interpretation Comments POCT GLU (test code = 3356920048) 78 mg/dL 70-110 Lab Interpretation (test code = Normal 70502-3) [facility] GLUCOSE (AUTOMATED)2022-10-08 21:27:01 Test Item Value Reference Range Interpretation Comments POCT GLU (test code = 9744376432) 78 mg/dL 70-110 Lab Interpretation (test code = Normal 93116-3) [facility] 1/2 AG-AB WITH [id number] 18:06:44 Test Item Value Reference Range Interpretation Comments HIV 0.11 Negative Semi-quantitative (test code = 19193-7) JOSH (test code = Non-reactive for HIV-1 JOSH) antigen and HIV-1/HIV-2 antibodies. ?No laboratory evidence of HIV infection. ?Repeat in 2-4 weeks if acute HIV infection is suspected. [facility] 1/2 AG-AB WITH [id number] 18:06:44 Test Item Value Reference Range Interpretation Comments HIV 0.11 Negative Semi-quantitative (test code = 06633-5) JOSH (test code = Non-reactive for HIV-1 JOSH) antigen and HIV-1/HIV-2 antibodies. ?No laboratory evidence of HIV infection. ?Repeat in 2-4 weeks if acute HIV infection is suspected. [facility] GLUCOSE (AUTOMATED)2022-10-08 17:45:24 Test Item Value Reference Range Interpretation Comments POCT GLU (test code = 2950948177) 76 mg/dL 70-110 Lab Interpretation (test code = Normal 40380-9) [facility] GLUCOSE (AUTOMATED)2022-10-08 17:45:24 Test Item Value Reference Range Interpretation Comments POCT GLU (test code = 0812975457) 76 mg/dL 70-110 Lab Interpretation (test code = Normal 11511-3) [facility] [id number] 16:40:30 Test Item Value Reference Range Interpretation Comments HBsAg Semi-Quantitative (test code = 0.10 Negative 5195-3) [facility] [id number] 16:40:30 Test Item Value Reference Range Interpretation Comments HBsAg Semi-Quantitative (test code = 0.10 Negative 5195-3) [facility] (D) IMMUNE [id number] 15:32:24 Test Item Value Reference Range Interpretation Comments RHIG CANDIDATE? No- see comment Patient i s not a (test code = candidate for R hIg- 5188) Patient is Rh Positive.Perfor med at [facility] Blood [address] [place], [place] [address]Toll Free: [phone] A No. [id number] [facility] (D) IMMUNE [id number] 15:32:24 Test Item Value Reference Range Interpretation Comments RHIG CANDIDATE? No- see comment Patient i s not a (test code = candidate for R hIg- 5188) Patient is Rh Positive.Perfor med at [facility] Blood [address] [place], [place] [id number] Free: [phone] A No. [id number] [facility] [id number] 13:19:34 Test Item Value Reference Range Interpretation Comments WBC (test code = 7.94 See_Comment [Automated 9138-2) message] The sy stem which generated this result transmitted reference range : 4.30 - 11.10 10*3/?L. The reference range was not used to interpret this result as normal/abnormal . RBC (test code = 3.97 See_Comment [Automated 837-8) message] The sy stem which generated this result transmitted reference range : 3.93 - 5.25 10*6/?L. The reference range was not used to interpret this result as normal/abnormal . HGB (test code = 10.4 g/dL 11.6-15.0 L 718-7) HCT (test code = 32.7 % 35.7-45.2 L 4544-3) MCV (test code = 82.4 fL 80.6-95.5 787-2) MCH (test code = 26.2 pg 25.9-32.8 785-6) MCHC (test code = 31.8 g/dL 31.6-35.1 786-4) RDW-SD (test code = 42.5 fL 39.0-49.9 65816-7) RDW-CV (test code = 14.3 % 12.0-15.5 788-0) PLT (test code = 370 See_Comment H [Automated 777-3) message] The sy stem which generated this result transmitted reference range : 166 - 358 10*3/ ?L. The reference r ivelisse was not used to interpret this result as normal/abnormal . MPV (test code = 9.8 fL 9.5-12.9 55802-0) NRBC/100 WBC (test 0.0 See_Comment [Automat ed code = 7209902270) message] The system which generated this result transmitted reference range : 0.0 - 10.0 /100 WBCs. The refer ence range was not u sed to interpret th is result as normal/abnormal . NRBC x10^3 (test code See_Comment [Auto mated = 7182420658) message] The s ystem which generated this result transmitted reference range : 10*3/?L. The reference range was not used to interpret this result as normal/abnormal . GRAN MAT (NEUT) % 65.4 % (test code = 770-8) IMM GRAN % (test code 0.80 % = 4145340530) LYMPH % (test code = 25.6 % 736-9) MONO % (test code = 6.8 % 5905-5) EOS % (test code = 0.9 % 713-8) BASO % (test code = 0.5 % 706-2) GRAN MAT x10^3(ANC) 5.20 10*3/uL 1.88-7.09 (test code = 6957661596) IMM GRAN x10^3 (test 0.06 10*3/uL 0.00-0.06 code = 0453087798) LYMPH x10^3 (test code 2.03 10*3/uL 1.32-3.29 = 731-0) MONO x10^3 (test code 0.54 10*3/uL 0.33-0.92 = 742-7) EOS x10^3 (test code = 0.07 10*3/uL 0.03-0.39 711-2) BASO x10^3 (test code 0.04 10*3/uL 0.01-0.07 = 704-7) Lab Interpretation Abnormal (test code = 53498-1) [facility] with [id number] 13:19:34 Test Item Value Reference Range Interpretation Comments WBC (test code = 7.94 See_Comment [Automated 6690-2) message] The sy stem which generated this result transmitted reference range : 4.30 - 11.10 10*3/?L. The reference range was not used to interpret this result as normal/abnormal . RBC (test code = 3.97 See_Comment [Automated 789-8) message] The sy stem which generated this result transmitted reference range : 3.93 - 5.25 10*6/?L. The reference range was not used to interpret this result as normal/abnormal . HGB (test code = 10.4 g/dL 11.6-15.0 L 718-7) HCT (test code = 32.7 % 35.7-45.2 L 4544-3) MCV (test code = 82.4 fL 80.6-95.5 787-2) MCH (test code = 26.2 pg 25.9-32.8 785-6) MCHC (test code = 31.8 g/dL 31.6-35.1 786-4) RDW-SD (test code = 42.5 fL 39.0-49.9 91309-5) RDW-CV (test code = 14.3 % 12.0-15.5 788-0) PLT (test code = 370 See_Comment H [Automated 777-3) message] The sy stem which generated this result transmitted reference range : 166 - 358 10*3/ ?L. The reference r ivelisse was not used to interpret this result as normal/abnormal . MPV (test code = 9.8 fL 9.5-12.9 97791-0) NRBC/100 WBC (test 0.0 See_Comment [Automat ed code = 6707204512) message] The system which generated this result transmitted reference range : 0.0 - 10.0 /100 WBCs. The refer ence range was not u sed to interpret th is result as normal/abnormal . NRBC x10^3 (test code See_Comment [Auto mated = 5735788753) message] The s ystem which generated this result transmitted reference range : 10*3/?L. The reference range was not used to interpret this result as normal/abnormal . GRAN MAT (NEUT) % 65.4 % (test code = 770-8) IMM GRAN % (test code 0.80 % = 3209953446) LYMPH % (test code = 25.6 % 736-9) MONO % (test code = 6.8 % 5905-5) EOS % (test code = 0.9 % 713-8) BASO % (test code = 0.5 % 706-2) GRAN MAT x10^3(ANC) 5.20 10*3/uL 1.88-7.09 (test code = 5800413955) IMM GRAN x10^3 (test 0.06 10*3/uL 0.00-0.06 code = 8673734128) LYMPH x10^3 (test code 2.03 10*3/uL 1.32-3.29 = 731-0) MONO x10^3 (test code 0.54 10*3/uL 0.33-0.92 = 742-7) EOS x10^3 (test code = 0.07 10*3/uL 0.03-0.39 711-2) BASO x10^3 (test code 0.04 10*3/uL 0.01-0.07 = 704-7) Lab Interpretation Abnormal (test code = 39951-2) [facility] [id number] 11:18:00 Test Item Value Reference Range Interpretation Comments ABO & RH (test code = 20) O Positive IAT (test code = 1185) Negative [facility] [id number] 11:18:00 Test Item Value Reference Range Interpretation Comments ABO & RH (test code = 20) O Positive IAT (test code = 1185) Negative [facility]-08 10:48:36 Test Item Value Reference Range Interpretation Comments POCT GLU (test code = 3549685871) 124 mg/dL 70-110 H Lab Interpretation (test code = Abnormal 04096-5) [facility]08 10:48:36 Test Item Value Reference Range Interpretation Comments POCT GLU (test code = 6975634224) 124 mg/dL 70-110 H Lab Interpretation (test code = Abnormal 70934-6) [facility] WITH [id number] 21:34:34 Test Item Value Reference Range Interpretation Comments HIV 0.12 Negative Semi-quantitative (test code = 28161-0) JOSH (test code = Non-reactive for HIV-1 JOSH) antigen and HIV-1/HIV-2 antibodies. ?No laboratory evidence of HIV infection. ?Repeat in 2-4 weeks if acute HIV infection is suspected. [facility] [id number] 17:55:23 Test Item Value Reference Range Interpretation Comments WBC (test code = 7.99 See_Comment [Automated 2290-2) message] The sy stem which generated this result transmitted reference range : 4.30 - 11.10 10*3/?L. The reference range was not used to interpret this result as normal/abnormal . RBC (test code = 3.98 See_Comment [Automated 209-8) message] The sy stem which generated this result transmitted reference range : 3.93 - 5.25 10*6/?L. The reference range was not used to interpret this result as normal/abnormal . HGB (test code = 10.9 g/dL 11.6-15.0 L 718-7) HCT (test code = 33.7 % 35.7-45.2 L 4544-3) MCV (test code = 84.7 fL 80.6-95.5 787-2) MCH (test code = 27.4 pg 25.9-32.8 785-6) MCHC (test code = 32.3 g/dL 31.6-35.1 786-4) RDW-SD (test code = 44.6 fL 39.0-49.9 75878-1) RDW-CV (test code = 14.6 % 12.0-15.5 788-0) PLT (test code = 330 See_Comment [Automated 707-3) message] The sy stem which generated this result transmitted reference range : 166 - 358 10*3/ ?L. The reference r ivelisse was not used to interpret this result as normal/abnormal . MPV (test code = 9.6 fL 9.5-12.9 56709-1) NRBC/100 WBC (test 0.0 See_Comment [Automat ed code = 9686144417) message] The system which generated this result transmitted reference range : 0.0 - 10.0 /100 WBCs. The refer ence range was not u sed to interpret th is result as normal/abnormal . NRBC x10^3 (test code See_Comment [Auto mated = 9110533805) message] The s ystem which generated this result transmitted reference range : 10*3/?L. The reference range was not used to interpret this result as normal/abnormal . GRAN MAT (NEUT) % 70.6 % (test code = 770-8) IMM GRAN % (test code 0.50 % = 9110747685) LYMPH % (test code = 21.2 % 736-9) MONO % (test code = 5.9 % 5905-5) EOS % (test code = 1.4 % 713-8) BASO % (test code = 0.4 % 706-2) GRAN MAT x10^3(ANC) 5.65 10*3/uL 1.88-7.09 (test code = 6122504888) IMM GRAN x10^3 (test 0.04 10*3/uL 0.00-0.06 code = 9897697941) LYMPH x10^3 (test code 1.69 10*3/uL 1.32-3.29 = 731-0) MONO x10^3 (test code 0.47 10*3/uL 0.33-0.92 = 742-7) EOS x10^3 (test code = 0.11 10*3/uL 0.03-0.39 711-2) BASO x10^3 (test code 0.03 10*3/uL 0.01-0.07 = 704-7) Lab Interpretation Abnormal (test code = 06733-9) [facility] URINALYSIS W/O SPECIFIC [id number] 16:27:00 Test Item Value Reference Range Interpretation Comments POCT PH U (test code = 3254) 6 mg/dl 5-8 POCT U LEUK EST (test code = ++ Negative - Negative 3263) POCT U NIT (test code = 3262) Negative Negative - Negative POCT U PROT (test code = 3259) Trace Negative - Negative POCT U GLU (test code = 3256) Normal Negative - Negative POCT U KETONE (test code = 3258) Negative Negative - Negative POCT U BLD (test code = 3257) 250 Negative - Negative [facility] GLUCOSE (AUTOMATED)2022-09-02 07:57:56 Test Item Value Reference Range Interpretation Comments POCT GLU (test code = 1739876075) 84 mg/dL 70-110 Lab Interpretation (test code = Normal 30027-5) [facility] URINALYSIS W/O SPECIFIC [id number] 19:12:00 Test Item Value Reference Range Interpretation Comments POCT PH U (test code = 3254) n/a 5-8 POCT U LEUK EST (test code = n/a Negative - Negative 3263) POCT U NIT (test code = 3262) n/a Negative - Negative POCT U PROT (test code = 3259) Negative Negative - Negative POCT U GLU (test code = 3256) Normal Negative - Negative POCT U KETONE (test code = 3258) n/a Negative - Negative POCT U BLD (test code = 3257) n/a Negative - Negative [facility] URINALYSIS W/O SPECIFIC [id number] 15:14:00 Test Item Value Reference Range Interpretation Comments POCT PH U (test code = 3254) n/a 5-8 POCT U LEUK EST (test code = n/a Negative - Negative 3263) POCT U NIT (test code = 3262) n/a Negative - Negative POCT U PROT (test code = 3259) trace Negative - Negative POCT U GLU (test code = 3256) negative Negative - Negative POCT U KETONE (test code = 3258) n/a Negative - Negative POCT U BLD (test code = 3257) n/a Negative - Negative [facility]. METABOLIC PANEL (72631)2022-07-17 20:26:56 Test Item Value Reference Range Interpretation Comments NA (test code = 135 mmol/L 135-145 8669902115) K (test code = 4.2 mmol/L 3.5-5.0 8680915404) CL (test code = 107 mmol/L 98-108 4393504462) CO2 TOTAL (test code = 19 mmol/L 23-31 L 4104587223) AGAP (test code = 9 2-16 6529051527) BUN (test code = 7 mg/dL 7-23 5614842140) GLUCOSE (test code = 133 mg/dL 70-110 H 3292658451) CREATININE (test code = 0.38 mg/dL 0.50-1.04 L 7455840540) TOTAL BILI (test code = 0.3 mg/dL 0.1-1.9 7532850453) CALCIUM (test code = 8.7 mg/dL 8.6-10.6 5786694615) T PROTEIN (test code = 6.4 g/dL 6.3-8.2 4287507505) ALBUMIN (test code = 3.7 g/dL 3.5-5.0 5136751314) ALK PHOS (test code = 81 U/L 34-122 2676262925) ALTv (test code = 47 U/L 5-35 H 1742-6) AST(SGOT) (test code = 41 U/L 13-40 H 0110561640) eGFR (test code = 204.7 mL/min/1.73m2 4380174206) JOSH (test code = JOSH) Association of Glomerular Filtration Rate (GFR) and Staging of Kidney Disease* + --+ --+ ------+| GFR (mL/min/1.73 m2) ?| With Kidney Damage ?| ?Without Kidney Damage+ --------+ --------+ +| ?>90 ?| ?Stage one ?| ? Normal ?+ ---+ ---+ -------+| ?60-89 ?| ?Stage two ?| ? Decreased GFR ? + --+ --+ ------+| ?30-59 ?| ?Stage three ?| ? Stage three ? + --+ --+ ------+| ?15-29 ?| ?Stage four ? | ? Stage four ?+ ---+ ---+ -------+| ?<15 (or dialysis) ? ?| ?Stage five ? | ? Stage five ?+ ---+ ---+ -------+ *Each stage assumes the associated GFR level has been in effect for at least three months. ?Stages 1 to 5, with or without kidney disease, indicate chronic kidney disease. Notes: Determination of stages one and two (with eGFR >59mL/min/1.73 m2) requires estimation of kidney damage for at least three months as defined by structural or functional abnormalities of the kidney, manifested by either:Pathological abnormalities or Markers of kidney damage (including abnormalities in the composition of the blood or urine or abnormalities in imaging tests). Lab Interpretation Abnormal (test code = 67480-5) [facility] WITH [id number] 20:12:30 Test Item Value Reference Range Interpretation Comments WBC (test code = 9.23 See_Comment [Automated 6690-2) message] The sy stem which generated this result transmitted reference range : 4.30 - 11.10 10*3/?L. The reference range was not used to interpret this result as normal/abnormal . RBC (test code = 4.10 See_Comment [Automated 789-8) message] The sy stem which generated this result transmitted reference range : 3.93 - 5.25 10*6/?L. The reference range was not used to interpret this result as normal/abnormal . HGB (test code = 11.0 g/dL 11.6-15.0 L 718-7) HCT (test code = 33.6 % 35.7-45.2 L 4544-3) MCV (test code = 82.0 fL 80.6-95.5 787-2) MCH (test code = 26.8 pg 25.9-32.8 785-6) MCHC (test code = 32.7 g/dL 31.6-35.1 786-4) RDW-SD (test code = 54.2 fL 39.0-49.9 H 48713-1) RDW-CV (test code = 18.2 % 12.0-15.5 H 788-0) PLT (test code = 368 See_Comment H [Automated 777-3) message] The sy stem which generated this result transmitted reference range : 166 - 358 10*3/ ?L. The reference r ivelisse was not used to interpret this result as normal/abnormal . MPV (test code = 9.0 fL 9.5-12.9 L 45909-7) NRBC/100 WBC (test 0.0 See_Comment [Automat ed code = 5547750479) message] The system which generated this result transmitted reference range : 0.0 - 10.0 /100 WBCs. The refer ence range was not u sed to interpret th is result as normal/abnormal . NRBC x10^3 (test code See_Comment [Auto mated = 1811238144) message] The s ystem which generated this result transmitted reference range : 10*3/?L. The reference range was not used to interpret this result as normal/abnormal . GRAN MAT (NEUT) % 74.5 % (test code = 770-8) IMM GRAN % (test code 1.30 % = 7948763162) LYMPH % (test code = 19.0 % 736-9) MONO % (test code = 4.0 % 5905-5) EOS % (test code = 0.8 % 713-8) BASO % (test code = 0.4 % 706-2) GRAN MAT x10^3(ANC) 6.88 10*3/uL 1.88-7.09 (test code = 8564066867) IMM GRAN x10^3 (test 0.12 10*3/uL 0.00-0.06 H code = 5357935831) LYMPH x10^3 (test code 1.75 10*3/uL 1.32-3.29 = 731-0) MONO x10^3 (test code 0.37 10*3/uL 0.33-0.92 = 742-7) EOS x10^3 (test code = 0.07 10*3/uL 0.03-0.39 711-2) BASO x10^3 (test code 0.04 10*3/uL 0.01-0.07 = 704-7) Lab Interpretation Abnormal (test code = 04745-1) [facility] URINALYSIS W/O SPECIFIC [id number] 18:37:00 Test Item Value Reference Range Interpretation Comments [...] code = 3257) n/a Negative - Negative [facility] BETA HCG [id number] 00:16:21 Test Item Value Reference Range Interpretation Comments BETA HCG (test 81260.00 See_Comment [Automated m essage] code = The system [employer] 2120143299) generated this result transmit elmira reference range : Non- fe male and male patien ts: <5 mIU/mL. The reference range was not used to interpret this result as normal/abnormal . JOSH (test code Gestational Age ? ? = JOSH) ?Range (mIU/mL) 1-10 ?Weeks ?68-92006149-66 Weeks ?15634-97425482-63 Weeks ?2386-37351134-48 Weeks ?9674-290056 Biotin has been reported to cause a negative bias, interpret results relative to patient's use of biotin. [facility]. METABOLIC PANEL (92981)2022-05-02 23:32:21 Test Item Value Reference Range Interpretation Comments NA (test code = 135 mmol/L 135-145 3943285923) K (test code = 4.4 mmol/L 3.5-5.0 8913073828) CL (test code = 104 mmol/L 98-108 2038415443) CO2 TOTAL (test code = 21 mmol/L 23-31 L 2330563120) AGAP (test code = 10 2-16 8910462503) BUN (test code = 14 mg/dL 7-23 6009379489) GLUCOSE (test code = 98 mg/dL 70-110 7138987670) CREATININE (test code = 0.67 mg/dL 0.50-1.04 1564373730) TOTAL BILI (test code = 0.5 mg/dL 0.1-1.8 4507349832) CALCIUM (test code = 9.4 mg/dL 8.6-10.6 7992256026) T PROTEIN (test code = 7.4 g/dL 6.3-8.2 0297490584) ALBUMIN (test code = 4.3 g/dL 3.5-5.0 9132841426) ALK PHOS (test code = 73 U/L 34-122 6629651438) ALTv (test code = 69 U/L 5-35 H 1742-6) AST(SGOT) (test code = 55 U/L 13-40 H 1940679526) eGFR (test code = 106.4 mL/min/1.73m2 8298379633) JOSH (test code = JOSH) Association of Glomerular Filtration Rate (GFR) and Staging of Kidney Disease* + --+ --+ ------+| GFR (mL/min/1.73 m2) ?| With Kidney Damage ?| ?Without Kidney Damage+ --------+ --------+ +| ?>90 ?| ?Stage one ?| ? Normal ?+ ---+ ---+ -------+| ?60-89 ?| ?Stage two ?| ? Decreased GFR ? + --+ --+ ------+| ?30-59 ?| ?Stage three ?| ? Stage three ? + --+ --+ ------+| ?15-29 ?| ?Stage four ? | ? Stage four ?+ ---+ ---+ -------+| ?<15 (or dialysis) ? ?| ?Stage five ? | ? Stage five ?+ ---+ ---+ -------+ *Each stage assumes the associated GFR level has been in effect for at least three months. ?Stages 1 to 5, with or without kidney disease, indicate chronic kidney disease. Notes: Determination of stages one and two (with eGFR >59mL/min/1.73 m2) requires estimation of kidney damage for at least three months as defined by structural or functional abnormalities of the kidney, manifested by either:Pathological abnormalities or Markers of kidney damage (including abnormalities in the composition of the blood or urine or abnormalities in imaging tests). Lab Interpretation Abnormal (test code = 58073-5) [facility]31[facility]40 Test Item Value Reference Range Interpretation Comments LIPASE (test code = 0738214151) 71 U/L 0-220 Lab Interpretation (test code = Normal 12290-9) [facility] WITH [id number] 23:17:54 Test Item Value Reference Range Interpretation Comments WBC (test code = 8.90 See_Comment [Automated 6690-2) message] The sy stem which generated this result transmitted reference range : 4.30 - 11.10 10*3/?L. The reference range was not used to interpret this result as normal/abnormal . RBC (test code = 4.56 See_Comment [Automated 789-8) message] The sy stem which generated this result transmitted reference range : 3.93 - 5.25 10*6/?L. The reference range was not used to interpret this result as normal/abnormal . HGB (test code = 10.6 g/dL 11.6-15.0 L 718-7) HCT (test code = 34.1 % 35.7-45.2 L 4544-3) MCV (test code = 74.8 fL 80.6-95.5 L 787-2) MCH (test code = 23.2 pg 25.9-32.8 L 785-6) MCHC (test code = 31.1 g/dL 31.6-35.1 L 786-4) RDW-SD (test code = 45.6 fL 39.0-49.9 46093-9) RDW-CV (test code = 17.0 % 12.0-15.5 H 788-0) PLT (test code = 447 See_Comment H [Automated 777-3) message] The sy stem which generated this result transmitted reference range : 166 - 358 10*3/ ?L. The reference r ivelisse was not used to interpret this result as normal/abnormal . MPV (test code = 9.2 fL 9.5-12.9 L 63864-7) NRBC/100 WBC (test 0.0 See_Comment [Automat ed code = 3090586150) message] The system which generated this result transmitted reference range : 0.0 - 10.0 /100 WBCs. The refer ence range was not u sed to interpret th is result as normal/abnormal . NRBC x10^3 (test code See_Comment [Auto mated = 3804689578) message] The s ystem which generated this result transmitted reference range : 10*3/?L. The reference range was not used to interpret this result as normal/abnormal . GRAN MAT (NEUT) % 65.8 % (test code = 770-8) IMM GRAN % (test code 0.30 % = 0593426920) LYMPH % (test code = 25.3 % 736-9) MONO % (test code = 7.1 % 5905-5) EOS % (test code = 0.9 % 713-8) BASO % (test code = 0.6 % 706-2) GRAN MAT x10^3(ANC) 5.86 10*3/uL 1.88-7.09 (test code = 2823017894) IMM GRAN x10^3 (test 0.03 10*3/uL 0.00-0.06 code = 6756695927) LYMPH x10^3 (test code 2.25 10*3/uL 1.32-3.29 = 731-0) MONO x10^3 (test code 0.63 10*3/uL 0.33-0.92 = 742-7) EOS x10^3 (test code = 0.08 10*3/uL 0.03-0.39 711-2) BASO x10^3 (test code 0.05 10*3/uL 0.01-0.07 = 704-7) Lab Interpretation Abnormal (test code = 16908-0) [id number]00 Test Item Value Reference Range Interpretation Comments POCT PREG (test code = 1605) Postive On board controls acceptable with Present C Line (test code = 3574) POCT PREG LOT # (test code = 3575) [id number] POCT PREG TEST DATE (test 07-25-2022 code = 3576) Lab Interpretation (test code = Normal 68258-2) [facility] [id number] 01:21:00 Test Item Value Reference Range Interpretation Comments UA COLOR (test code = YELLOW YELLOW COLU) UA APPEARANCE (test Cloudy CLEAR A IS THE SAMPLE code = APPU) FROM ER OR L&D? Y IF THE ANSWER I S NO,PLEASE DOCUMENT TWO RN SIGNATURES HERE - by AGN.SN 04/02/22 0118 UA GLUCOSE DIPSTICK NEGATIVE mg/dL NEGATIVE (test code = DGLUU) UA BILIRUBIN DIPSTICK NEGATIVE mg/dL NEGATIVE (test code = BILU) UA KETONE DIPSTICK NEGATIVE mg/dL NEGATIVE (test code = KETU) UA SPECIFIC GRAVITY 1.034 1.001-1.035 (test code = SGU) UA BLOOD DIPSTICK 1.0 mg/dL (3+) NEGATIVE A (test code = CANDICE) mg/dL UA PH DIPSTICK (test 6.0 5.0-8.0 code = DIEGO) UA PROTEIN DIPSTICK 20 (Trace) mg/dL NEGATIVE A (test code = PROU) UA UROBILINIOGEN Normal mg/dL NEGATIVE DIPSTICK (test code = URO) UA NITRITE DIPSTICK NEGATIVE NEGATIVE (test code = CLEMENT) UA LEUKOCYTE ESTERASE 250 Lauryn/uL (2+) NEGATIVE A W REFLEX (test code = Lauryn/uL LEUUR) UA WBC (test code = 11-20 per HPF 0-5 A WBCU) UA RBC (test code = 11-20 #/HPF 0-5 A RBCU) UA EPITHELIAL CELLS MANY per HPF FEW (test code = EPIU) UA BACTERIA (test FEW #/HPF NONE A code = BACU) UA MUCUS (test code = FEW #/LPF FEW MUCU) Urine Source? Clean CatchBASIC METABOLIC [id number] 22:58:00 Test Item Value Reference Range Interpretation Comments SODIUM (test code = 137 mmol/L 136-145 N NA) POTASSIUM (test 3.9 mmol/L 3.5-5.1 N code = K) CHLORIDE (test code 104.0 mmol/L 98-107 N = CL) CARBON DIOXIDE 21.0 mmol/L 21-32 N (test code = CO2) ANION GAP (test 15.9 10-20 N code = GAP) GLUCOSE (test code 102 mg/dL 74-106 N = GLU) BLOOD UREA NITROGEN 10 mg/dL 7-18 N (test code = BUN) GLOMERULAR > 60 mL/min >=60 The Glomerular FILTRATION RATE Filtration R ate is a (test code = GFR) calculated parameterbased on serum Creatinin e, patient age and sex. GFR valuesless than 60 mL/min/1.73 squ are meters are yannick cative ofChronic Kidne y Disease. Values less than 15 mL/min/1.73squa re meters indicate Kidney failure. The calculation for GFR is based on the CK D-EPI (2020) calculat ion. This formulais race indifferent and is the recommended for phylicia for GFRby the N ational Kidney Foundati on for Adults.The GFR will not calculate i f the sex is unknown or if thepatient's ag e is <18 years. CREATININE (test 0.60 mg/dL 0.55-1.02 N Note gonzalez ge in code = CREAT) reference rang e due to change in reage nt. BUN/CREATININE 16.1 10-20 N RATIO (test code = BUN/CREA) CALCIUM (test code 9.0 mg/dL 8.5-10.1 N = CA) HEPATIC FUNCTION [id number] 22:58:00 Test Item Value Reference Range Interpretation Comments TOTAL PROTEIN (test 7.1 gram/dL 6.4-8.2 N code = PROT) ALBUMIN (test code = 3.5 g/dL 3.4-5.0 N ALB) GLOBULIN (test code = 3.6 gram/dL 2.7-4.2 N GLOB) ALBUMIN/GLOBULIN RATIO 1.0 0.75-1.50 N (test code = A/G) BILIRUBIN TOTAL (test 0.30 mg/dL 0.0-1.0 N code = BILT) BILIRUBIN DIRECT (test < 0.10 mg/dL 0.0-0.20 N code = BILD) SGOT/AST (test code = 57 IUnit/L 15-37 H AST) SGPT/ALT (test code = 86 IUnit/L 12-78 H ALT) ALKALINE PHOSPHATASE 80 IUnit/L 45-117 N Note change in TOTAL (test code = reference range due ALKP) to change in reagent. HCG SERUM [id number] 22:58:00 Test Item Value Reference Range Interpretation Comments HCG SERUM BETA 42620.0 mIU/mL 0-3 H Interfering substances (test code = present in the serum of HCG) somepatients ma y cause a false-positiv e result in this assay.Questiona ble elevations in s lyubov hCG should be confi rmedwith a urine hCG. Art spected Trophoblastic N eoplasms shouldnot be di agnosed based on serun hCG/beta hCG alone. They must be confirmed by cl inical history and tis miranda diagnosis.INTER PRETATIO N:B-HCG LEVELS <5 SHOULD BE CONSI DERED "NEGATIVE." *WH EN BODERLINE RESUL TS ARE ENCOUNTERED,PAT IENT SAMPLESSHOULD B E REDRAWN 48 HOUR S. 0-1 WEEKS AFTER CONCEPTION 5-50 MIU/ML1-2 WEEKS AFTER CONCEPTION 50-5 00 MIU/ML2-3 WEEKS AFTER CONCEPTION 100 -5,000 MIU/ML3-4 WEEKS AFTER CONCEPTION 500- 10,000 MIU/ML4-5 WEEKS AFTER CONCEPTION 1000 -50,000 MIU/ML5-6 WEEKS AFTER CONCEPTION 10,000-100,000 MIU/ML6-8 WEEKS AFTER CONCEPTION 15,0 00- 200,000 MIU/ML2 -3 MONTHS AFTER CO NCEPTION 10,000-100,000 MIU/ML - US PREG UT [id number] 22:40:00 [facility] ([facility])Name: JERMAINE SINGHH : 1995 Sex: F Name: BRIT SINGH [facility] : 1995 Age/S: 26 / F [address] Unit #: [id number] Loc: [place] [address] Phys: Francisco Shepherd MD Acct: [id number] Dis Date: Status: REG ERPHONE #: [phone] Exam Date: 04/01/20226 FAX #: [phone] Reason: PELVIC PAIN EXAMS: CPT CODE: [id number] US PREG UT TRANSVAGINAL 05753 Dictation location: H3 Early first trimester c onducted transvaginally and transabdominally and with Doppler color spectral analysis performed in addition to Doppler grayscale arterial wave form analysis. Exam conducted on 04/01/22 CLINICAL HISTORY: History twin . Patient presenting with vaginal bleeding and pelvic pain. Comparison exam: None from this Currently, there is only a single viable intrauterine gestation with heart rate measured 165 bpm. The crown-rump length measures 2.84 cm consistent with an age of 9 weeks 4 days and the mean gestational sac diameter is consistent with an age of 9 weeks 5 days. The SHAHID derived by crown- rump length is 11/01/22. It correlates fairly well the age calculated by dates of9 weeks 6 days. Second gestational sac containing mixed components without pole or viable . There appears to be a yolk sac in this collection without crown-rump length. Findings are consistent with demise of a second . Normal amount of amniotic fluid correlates with the v iable fetus. No gross abnormality is seen of subchorionic hematoma No abnormal adnexal lesions. Normal Doppler flow to the ovaries without ovarian torsion. Normal color spectral flow to the ovaries. Nofree fluid collections in the cul-de-sac IMPRESSION: Only a solitary viable intrauterine gestation is seen with the crown-rump length consistent with an age of 9 weeks 4 days with demise suspected of an abnormal appearing gestational sac containing probable yolk sac and debris in the adjacent gestational sac without pole. at 2240 Reported and signed by: Darlene Roman M.D. PAGE 1 Signed Report (CONTINUED) Name: BRIT SINGH [facility] : 1995 Age/S: 26 / F [place] Unit #: [id number] Loc: [place] [address] Phys: Francisco Shepherd MD Acct: [id number] Dis Date: Status: REG ER PHONE #: [phone] Exam Date: 04/01/20222215 FAX #: [phone] Reason: PELVIC PAIN EXAMS: CPT CODE: [id number] US PREG UT TRANSVAGINAL 96176 (Continued) CC: Francisco Shepherd MD Technologist: Christi Edmond RDMS Trnscb Date/Time: 04/01/2022 (2239) [email or web address] Orig Print D/T: S: 04/01/2022 (2242) Probe: [id number] PAGE 2 Signed Report- DUP AB/PEL/SC [id number] 22:40:00 [facility])Name: BRIT SINGH : 1995 Sex: F Name: BRIT SINGH [facility] : 1995 Age[facility]S: 26 / [facility] [address] [facility] Unit #: [id number] Loc: [place] [address] Phys: Francisco Shepherd MD Acct: [id number] Dis Date: Status: REG ER PHONE #: [phone] Exam Date: 04/01/20222215 FAX #: [phone] Reason: PELVIC PAIN EXAMS: CPT CODE: [id number] DUP AB/PEL/SC COMP 00288 Dictation location: H3 Early first trimester conducted transvaginally and transabdominally and with Doppler color spectral analysis performed in addition to Doppler grayscale arterial wave form analysis. Exam conducted on 04/01/22 CLINICAL HISTORY: History twin . Patient presenting with vaginal bleeding and pelvic pain. Comparison exam: None from this Currently, there is only a single viable intrauterine gestation with heart rate measured 165 bpm. The crown-rump length measures 2.84 cm consistent with an age of 9 weeks4 days and the mean gestational sac diameter is consistent with an age of 9 weeks 5 days. The SHAHID derived by crown-rump length is 11/01/22. It correlates fairly well the age calculated by dates of 9 weeks 6 days. Second gestational sac containing mixed components without pole or viable . There appears to be a yolk sac in this collection without crown-rump length. Findings are consistent with demise of a second . Normal amount of amniotic fluid correlates with the viablefetus. No gross abnormality is seen of subchorionic hematoma No abnormal adnexal lesions. Normal Doppler flow to the ovaries without ovarian torsion. Normal color spectral flow to the ovaries. No freefluid collections in the cul-de-sac IMPRESSION: Only a solitary viable intrauterine gestation is seen with the crown-rump length consistent with an age of 9 weeks 4 days with demise suspected of an abnormal appearing gestational sac containing probable yolk sac and debris in the adjacent gestational sac without pole. at 2240 Reported and signed by: Darlene Roman M.D. PAGE 1 Signed Report (CONTINUED) Name: BRIT SINGH [facility] : 1995 Age/S: 26 / F [address] Unit #: [id number]: [place] [address] Phys: Farncisco Shepherd MD Acct: [id number] Dis Date: Status: REG ER PHONE #:[phone] Exam Date: 04/01/20222215 FAX #: [phone] Reason: PELVIC PAIN EXAMS: CPT CODE: [id number] DUP AB/PEL/SC COMP 27466 (Continued) CC: Francisco Shepherd MD Technologist: Christi Edmond RDTN Trnscb Date/Time: 04/01/2022 (2239) [email or web address] Orig Print D/T: S: 04/01/2022 (2242) Probe: PAGE 2Signed Report- US PREG 1ST TRIMTR 2022-04-01 22:40:00 [facility] ([facility])Name: BRIT SINGH : 1995 Sex: F Name: BRIT SINGH [facility] : 1995 Age/S: 26 / F [address] Unit #: [id number] Loc: [place] [address] Phys: Francisco Shepherd MD Acct: [id number] Dis Date: Status: REG ER PHONE #: [phone] Exam Date: 04/01/20222215 FAX #: [phone] Reason: VAGINAL BLEEDING/PELVIC PAIN EXAMS: CPT CODE: [id number] US PREG 1ST TRIMTR 86919 Dictation location: H3 Early first trimester conducted transvaginally and transabdominally and with Doppler color spectral analysis performed in addition to Doppler grayscale arterial wave form analysis. Exam conducted on 04/01/22 CLINICAL HISTORY: History twin . Patient presenting with vaginal bleeding and pelvic pain. Comparison exam: None from this Currently, there is only a single viable intrauterine gestationwith heart rate measured 165 bpm. The crown-rump length measures 2.84 cm consistent with an age of 9 weeks 4 days and the mean gestational sac diameter is consistent with an age of 9 weeks 5 days. The SHAHID derived by crown-rump length is 11/01/22. It correlates fairly well the age calculated by dates of 9 weeks 6 days. Second gestational sac containing mixed components without pole or viable . There appears to be a yolk sac in this collection without crown-rump length. Findings are consistent with demise of a second . Normal amount of amniotic fluid correlates with the viable fetus. No gross abnormality is seen of subchorionic hematoma No abnormal adnexal lesions. Normal Doppler flow to the ovaries without ovarian torsion. Normal color spectral flow to theovaries. No free fluid collections in the cul-de-sac IMPRESSION: Only a solitary viable intrauterinegestation is seen with the crown-rump length consistent with an age of 9 weeks 4 days with demise suspected of an abnormal appearing gestational sac containing probable yolk sac and debris in theadjacent gestational sac without pole. at 2240 Reported and signed by: Darlene Roman M.D. PAGE 1 Signed Report (CONTINUED) Name: BRIT SINGH [facility] : 1995 Age/S: 26 / F [address] Unit #: [id number] Loc: [place] [address] Phys: Francisco Shepherd MD Acct: [id number] Dis Date: Status: REG ER PHONE #: [phone] Exam Date: 04/01/20222215 FAX #: [phone] Reason: VAGINAL BLEEDING/PELVIC PAIN EXAMS: CPT CODE: [id number] US PREG 1ST TRIMTR 73117 (Continued) CC: Francisco Shepherd MD Technologist: Christi Edmond RD Trnscb Date/Time: 04/01/2022 (2239) [email or web address] Orig Print D/T:S: 04/01/2022 (2242) Probe: PAGE 2 Signed ReportPROTHROMBIN [id number] 22:16:00 Test Item Value Reference Range Interpretation Comments PROTHROMBIN TIME 11.1 seconds 9.0-14.0 N PATIENT (test code = PTP) INTERNATIONAL NORMAL 1.0 0.8-1.2 N The the rapeutic range RATIO (test code = for oral INR) anticoagulant t herapy formost indicat ions is an internati onal normalized rati o (INR)of between 2.0 and 3.0. The recommended therapeutic INR range for various cli nical situations is l isted below: Clinical Situat ion INR range Pulmonary embol ism treatment (2.0-3.0)Venous thrombosis treatmentVenous thrombosis prophylaxis (hi gh risk surgery)Prevent ion of systemic emboli sm from: Acute myocardial infa rction Valvular heart disease Atrial fibrillation Mechanical pros thetic heart valves (2.5-3.5) IS PATIENT ON ANTICOAGULANTS? NTHROMBOPLASTIN TIME [id number] 22:16:00 Test Item Value Reference Range Interpretation Comments THROMBOPLASTIN TIME PARTIAL 30.7 seconds 23.0-37.0 N (test code = PTT) IS PATIENT ON ANTICOAGULANTS? NCBC W/O [id number] 22:10:00 Test Item Value Reference Range Interpretation Comments WHITE BLOOD CELL (test code = 8.2 K/mm3 4.5-12.5 N WBC) RED BLOOD CELL (test code = 4.43 mill/mm3 3.7-5.2 N RBC) HEMOGLOBIN (test code = HGB) 10.1 gram/dL 11.5-15.5 L HEMATOCRIT (test code = HCT) 33.3 % 36.0-46.0 L MEAN CELL VOLUME (test code = 75.2 fL 80-98 L MCV) MEAN CELL HGB (test code = MCH) 22.8 picogram 27.0-33.0 L MEAN CELL HGB CONCETRATION 30.3 gram/dL 33.0-36.0 L (test code = MCHC) RED CELL DISTRIBUTION WIDTH 17.0 % 11.6-16.2 H (test code = RDW) PLATELET COUNT (test code = 469 K/mm3 150-450 H PLT) MEAN PLATELET VOLUME (test code 9.2 fL 6.7-11.0 N = MPV) Type and Screen - ONCE [id number] 23:04:14 Test Item Value Reference Range Interpretation Comments ABO & RH (test code O Positive Performe d at [facility] = 20) Laboratory Serv [facility] [address] [place] [id number] Free: [phone] A No. [id number] IAT (test code = Negative Performed a t [facility] 1185) Laboratory Serv [facility] [address] [place] [phone] Free: [phone] A No. [id number] [facility] [id number] 22:06:00 Test Item Value Reference Range Interpretation Comments POCT PREG (test code = 1605) positive On board controls acceptable with present C Line (test code = 3574) POCT PREG LOT # (test code = 3575) [id number] POCT PREG TEST DATE (test code = 3576) Lab Interpretation (test code = Normal 73649-7) [facility] [id number] 23:10:00 Test Item Value Reference Range Interpretation Comments POCT PREG (test code = 1605) NEGATIVE On board controls acceptable with PRESENT C Line (test code = 3574) POCT PREG LOT # (test code = 3575) [id number] POCT PREG TEST DATE (test 02/24/23 code = 3576) Lab Interpretation (test code = Normal 06993-9) [facility] History and Physical Notes Date/Time Note Provider Source 2022-10-08 07:07:07 [id number]:07:07Formatting of this note [facility] is different from the original.TRIAGE HISTORY & PHYSICALIDENTIFYING DATAStorres Singh is 27 year old, /White, 37w0d, female with SHAHID 10/29/2022, by Last Menstrual Period. : 1995MRN: [id number] Care Physician: PATIENT DOES NOT HAVE A PCPCHIEF COMPLAINTElective repeat CD at 37 wks HISTORY OF PRESENT ILLNESSBrit Singh is a 27 year old female @ 37w0d presented for elective repeat CD due to CD x 1 and uncontrolled pregestational DM and non-compliant. +FM. No VB, LOF, or CTX. No pre-eclampsia sx or other complaints.PAST OBSTETRIC HISTORYOB History Para Term AB Living 3 2 1 1 0 2 SAB IAB Ectopic Multiple Live Births 0 0 0 0 2 # Outcome Date GA Lbr [place]/2nd Weight Sex Delivery Anes PTL Lv 3 Current 2 09/26/21 34w4d 2480 g M , L Spinal N JERE 1 Term 08/24/20 37w3d 3630 g M NORMAL SPONT EPI N JERE Complications: Other (See Comments) PAST MEDICAL HISTORYProblem list: Patient Active Problem List Diagnosis Date Noted GDM, class A2 10/08/2022 37 weeks gestation of 10/08/2022 Previous section 08/14/2022 History of delivery, currently , unspecified trimester 08/14/2022 Pregestational diabetes mellitus, modified White class B 09/26/2021 Morbid obesity with body mass index of 40.0-49.9 05/11/2021 High risk , antepartum 04/13/2021 History of gestational hypertension 04/13/2021 Depression, unspecified depression type 08/17/2020 Obesity in 05/30/2017 Hemorrhoids, unspecified hemorrhoid type 11/20/2016 Operations: Past Surgical History: Procedure Laterality Date SECTION N/A 09/26/2021 Surgeon: Nayeli Solis MD; Location: [facility] Past Medical History: Diagnosis Date Anemia of mother in , antepartum 07/17/2020 Chlamydia 2012 Chlamydia trachomatis infection of lower genitourinary sites 05/15/2013 Depression, unspecified depression type 08/17/2020 Gestational hypertension, third trimester 08/25/2020 Gonorrhea 2013 Postcoital bleeding 05/14/2013 Pregestational diabetes mellitus, modified White class B 09/26/2021 CURRENT HEALTH STATUSMedications: Current Facility-Administered Medications Medication Dose Route Frequency Last Rate Last Admin carboprost (HEMABATE) injection 250 mcg 250 mcg Intramuscular Q2HPRN ceFAZolin in 0.9% sod chloride 3 gram/100 mL PgBk 3 g 3,000 mg IV Piggyback O.R. HOLDING ONCE D5W-LR IV infusion 1,000 mL 1,000 mL IV Infusion TITRATE dextrose 10% (D10W) bolus infusion 250 mL 250 mL IV Infusion PRN - SEE INSTRUCTIONS glucagon (GLUCAGEN DIAGNOSTIC KIT) injection 1 mg 1 mg Intramuscular PRN lactated ringers IV infusion 500 mL 500 mL IV Infusion PRN - SEE INSTRUCTIONS 999 mL/hr at 10/08/22 0556 500 mL at 10/08/22 0556 lidocaine 1% (PF) (XYLOCAINE) injection 0.3 mL 0.3 mL Infiltration PRN - SEE INSTRUCTIONS methylergonovine (METHERGINE) injection 0.2 mg 0.2 mg Intramuscular Q4HPRN miSOPROStoL (CYTOTEC) tablet 200 mcg 200 mcg Rectal PRN oxytocin (PITOCIN) 30 units in NS 500 mL IV infusion 600 mL/hr IV Infusion PRN Sliding Scale Insulin Subcutaneous SEE-INSTRUCTIONS 2 Units at 10/08/22 0557 sodium citrate-citric acid (BICITRA) 500-334 mg/5 mL solution 30 mL 30 mL Oral PRE-PROCEDURE ONCE terbutaline (BRETHINE) injection 0.25 mg 0.25 mg Subcutaneous PRN tranexamic acid (CYKLOKAPRON) 1,000 mg in NaCl 0.9% (NS) 250 mL piggyback 1,000 mg IV Piggyback PRN Allergies and drug reactions: Patient has no known allergies.HOME MEDICATIONSMedications Prior to Admission Medication Sig Dispense Refill Last Dose metFORMIN 1,000 mg tablet Take 1 tablet by mouth at bedtime. 30 tablet 1 Not Taking ferrous sulfate (IRON ORAL) Take by mouth. Not Taking Alcohol Swabs PadM Apply to area 4 times a day to check blood sugar as directed. 100 Each 6 Not Taking ascorbic acid, vitamin C, 500 mg tablet Take 1 tablet by mouth in the morning. 30 tablet 3 Not Taking aspirin 81 mg EC tablet Take 1 tablet by mouth in the morning. 30 tablet 3 Not Taking Blood Sugar Diagnostic, Disc Strp Check blood sugar 4 times a day as directed. 100 Strip 5 Not Taking Blood-Glucose Meter (BLOOD GLUCOSE MONITORING) Kit Check blood sugar 4 times daily as directed. Brand per Insurance. 1 Kit 0 Not Taking ferrous sulfate (IRON, FERROUS SULFATE,) 325 mg (65 mg iron) tablet Take 1 tablet by mouth in the morning. 30 tablet 3 Not Taking Lancets Misc Check blood sugars 4 times a day as directed. 100 Each 5 Not Taking benzonatate 100 mg capsule Take 1 capsule by mouth 3 (three) times daily as needed for Cough. 14 capsule 0 Not Taking dicyclomine 20 mg tablet Take 1 tablet by mouth 4 (four) times daily as needed for Abdominal pain. 20 tablet 0 Not Taking hydrocortisone-pramovine rectal foam Insert 1 Applicator into rectum in the morning and 1 Applicator in the evening. 10 g 0 Not Taking acetaminophen 325 mg tablet Take 2 tablets by mouth every 6 (six) hours as needed for Pain (scale 1-3) or Pain (scale 4-6). 30 tablet 1 Not Taking docusate 100 mg capsule Take 2 capsules by mouth once daily as needed for Constipation. 60 capsule 1 Not Taking vitamin w/FA tablet Take 1 tablet by mouth in the morning. 100 tablet 3 Not Taking SOCIAL HISTORYTobacco History: Social History Tobacco Use Smoking Status Former Types: Cigarettes Quit date: 12/24/2019 Years since quittin.7 Smokeless Tobacco Never Drug History: Social History Substance and Sexual Activity Drug Use Not Currently Types: Marijuana Comment: last smoked 2019 Alcohol History: Social History Substance and Sexual Activity Alcohol Use Yes Alcohol/week: 0.0 standard drinks of alcohol Comment: ocassional FAMILY HISTORYFamily History Problem Relation Age of Onset Diabetes Maternal Grandmother Cancer Paternal Grandfather No Significant Medical Problems Mother No Significant Medical Problems Father Arthritis NoFHx Asthma NoFHx Breast Cancer NoFHx Colon Cancer NoFHx Ovarian Cancer NoFHx defects NoFHx Uterine Cancer NoFHx Depression NoFHx Genetic NoFHx High cholesterol NoFHx Heart NoFHx Hypertension NoFHx Mental retardation NoFHx Neurological NoFHx Psychiatry NoFHx Osteoporosis NoFHx REVIEW OF SYSTEMSGeneral: negativeConstitutional: negativeEyes: negativeENT/Mouth: negativeCardiovascular: negativeRespiratory: negativeGastrointestinal:negativeGenitouri nary: negativeMusculoskeletal: negativeSkin/breast: negativeNeurological: negativePsychiatric: negativeEndocrine: negativeHemat/Lymph: negativeAllergic/Immuno:noneVITAL SIGNSBP: (114-125)/(49-77) Temp: [36.8 ?C (98.2 ?F)] Temp source: Temporal Artery (10/09 527)Pulse: [86-88] Resp: [20] SpO2: [99 %-100 %] Height: [162.6 cm (5' 4")] Weight: [124.8 kg (275 lb 3.2 oz)] BMI (calculated): [47.24] PHYSICAL EXAMINATIONSGen: alert and oriented, well appearing, no distressCV: RRR, normal S1/S2, no m/r/gResp: normal work of breathing, lungs CTABAbd: gravid, soft, NTTPExt: no calf tenderness or edemaGU: Deferred REVIEW OF LABORATORY, PATHOLOGY, AND RADIOLOGY DATALab results:Type & Screen HIV Hep B Syphilis Chlamydia ABO & RH Date Value Ref Range Status 10/08/2022 O Positive Final HIV Ag-Ab Multiplex Date Value Ref Range Status 05/30/2017 Non-reactive Non-reactive Final No components found for: "HBSHBSAG" SYPH IGG Date Value Ref Range Status 05/30/2017 Nonreactive Nonreactive Final C. trachomatis Nucleic Acid Date Value Ref Range Status 07/30/2022 Negative Negative Final IAT Date Value Ref Range Status 10/08/2022 Negative Final Varicella Rubella Glucose Group B Strep CBC VZV IgG antibody Date Value Ref Range Status 07/05/2022 Negative Negative Final Rubella screen IgG Date Value Ref Range Status 07/05/2022 Negative Negative Final GLUC 1 HR Date Value Ref Range Status 07/05/2022 224 (H) 120 - 170 mg/dL Final No results found for: "CGBS" HGB Date Value Ref Range Status 09/11/2022 10.9 (L) 11.6 - 15.0 g/dL Final HCT Date Value Ref Range Status 09/11/2022 33.7 (L) 35.7 - 45.2 % Final PLT Date Value Ref Range Status 09/11/2022 330 166 - 358 10*3/?L Final Active Hospital Problems Diagnosis Date Noted GDM, class A2 10/08/2022 37 weeks gestation of 10/08/2022 Previous section 08/14/2022 High risk , antepartum 04/13/2021 Resolved Hospital Problems No resolved problems to display. Present on Admission: GDM, class A2 37 weeks gestation of pregnancyPlacenta Accreta ScreeningPrior ? : YesPrior Uterine Surgery?: YesPlacenta low lying/previa in current ? : NoScreening outcome:A positive screening outcome indicates a history of prior delivery or prior uterine surgery, AND the presence of either a placenta low lying/previa or ultrasound suspicion of PASD in the current . Negative screening.ASSESSMENT AND PLANStorres Singh is a 27 year old at 37w0d who presents for a repeat CD.Previous CD x 1- admit for repeat CDPregestational DM- FSBG [address] Solis, please see [place] [address]-5Rtlfbub and physical [id number]:03:33History and physical [id number]8 9|[id number] for patient tzic13287-6Iqnuyxw and physical noteLNUT[address]Ob[id number] XJSEMBEAFVBWUNJY5056-53-04P25:03:331.2.840 .206029.1.72.3.15|1.2.840.441446.1.13.104. 2.7.2.727879_[id number] Progress Notes Date/Time Note Provider Source 2022-09-11 11:15:00 [id number] of this [facility] might be different from the original.Age: 27 year oldGA: 33w1d Lower abdominal cramping- Cervix visually closed- + vaginal discharge: vag path collected- U dip neg with 2+ leuks and 250 blood. Urine culture sent - Advise maternity belt, rest prn, tylenol prnStates that she has not check her glucose nor take Metformin due to a lot going on in her life right now. currently in nursing home. She has moved out of her house. She recently was fired from her job. States that she worked for at least 35 hrs and has not received pay yet. Offered neonatal intensive care nurse referral. Consult neonatal intensive care nurse placed. Previous CD x 1- primary LTCD at 34 wks due to non-reassuring heart tones and oligohydramnios with BPP 4/10 on 09/26/21- Desires repeat CD. delivery x 1- primary CD at 34 wks due to non-reassuring heart tones and oligohydramnios with BPP 06/04 - serologies neg, Rubella non-immune, VZV non-immune, O+- anatomy scan done on 07/24/22 without obvious abnormalities. - Appropriate interval growth on 08/22/22 (3 lbs 12 oz) Pregestational versus GDM- 1 hr gtt 224. HbA1C ordered, not completed yet.- not taking Metformin 1000 mg QHS- not checking her glucose- appropriate interval growth on 08/22/22 ultrasound- NST reactive and reassuring- counseled patient strongly about importance of compliance. Risks of uncontrolled diabetes discussed. 28 wk labs and serologies ordered, not completed yet. Advise patient to complete it soon. Follow-up on Sat for NST [id number] for patient [address] [id number] .[id number]. [id number]
--- NOTE | 2022-12-17 08:32 | EDPHYS ---
Physician Documentation [facility] Name: Brit Singh Age: 27 yrs Sex: Female : 1995 Arrival Date: 12/17/2022 Time: 08:14 Bed 17 Private MD: ED Physician Emery Uribe HPI: 12/17 08:17 This 27 yrs old Female presents to ER via Unassigned with complaints of Rectal jh7 Pain. 08:17 The patient presents to the emergency department with bleeding from the rectum/anus, jh7 that is mild, pain in the rectal area, that is moderate. Onset: The symptoms/episode began/occurred 2 day(s) ago. Patient reports rectal pain and bleeding for the past few days. Reports a history of hemorrhoids while she was but states that they have worsened since she had a baby in September. Denies fever, nausea/vomiting, or diarrhea.. Historical: - Allergies: 08:28 No Known Allergies; kc6 - PMHx: 08:28 None; kc6 - PSHx: 08:28 None; kc6 - Immunization history:: Client reports having NOT received the Covid vaccine. Flu vaccine is not up to date. - Social history:: Smoking status: unknown. ROS: 08:17 Constitutional: Negative for fever, chills, and weight loss, Eyes: Negative for injury, jh7 pain, redness, and discharge, Neck: Negative for injury, pain, and swelling, Cardiovascular: Negative for chest pain, palpitations, and edema, Respiratory: Negative for shortness of breath, cough, wheezing, and pleuritic chest pain, Back: Negative for injury and pain, MS/Extremity: Negative for injury and deformity, Skin: Negative for injury, rash, and discoloration, Neuro: Negative for headache, weakness, numbness, tingling, and seizure, 08:17 Abdomen/GI: Positive for rectal pain, rectal bleeding, Negative for abdominal pain, nausea, vomiting, and diarrhea, 08:17 All other systems are negative, Exam: 08:17 Constitutional: This is a well developed, well nourished patient who is awake, alert, jh7 and in no acute distress. Head/Face: Normocephalic, atraumatic. Eyes: Pupils equal round and reactive to light, extra-ocular motions intact. Lids and lashes normal. Conjunctiva and sclera are non-icteric and not injected. Cornea within normal limits. Periorbital areas with no swelling, redness, or edema. Cardiovascular: Regular rate and rhythm with a normal S1 and S2. No gallops, murmurs, or rubs. Normal PMI, no JVD. No pulse deficits. Respiratory: Lungs have equal breath sounds bilaterally, clear to auscultation and percussion. No rales, rhonchi or wheezes noted. No increased work of breathing, no retractions or nasal flaring. Abdomen/GI: Soft, non-tender, with normal bowel sounds. No distension or tympany. No guarding or rebound. No evidence of tenderness throughout. 2 small external hemorrhoids noted with no thrombosis. Back: No spinal tenderness. No costovertebral tenderness. Full range of motion. Skin: Warm, dry with normal turgor. Normal color with no rashes, no lesions, and no evidence of cellulitis. MS/ Extremity: Pulses equal, no cyanosis. Neurovascular intact. Full, normal range of motion. Neuro: Awake and alert, GCS 15, oriented to person, place, time, and situation. Motor strength 5/5 in all extremities. Sensory grossly intact. Normal gait. Vital Signs: 08:27 Weight 116.57 kg (R); Height 5 ft. 4 in. ; [facility] 08:31 BP 115 / 59; Pulse 72; Resp 18 S; Temp 98.3(O); Pulse Ox 97% on R/A; 6 08:27 Body Mass Index 44.11 (116.57 kg, 162.56 cm) [facility] MDM: 08:17 Patient medically screened. [facility] 08:33 Differential diagnosis: hemorrhoids, abscess, pilonidal cyst. Data reviewed: vital [facility] signs, nurses notes. I considered the following discharge prescriptions or medication management in the emergency department Medications were administered in the Emergency Department. See MAR. Counseling: I had a detailed discussion with the patient and/or guardian regarding the historical points, exam findings, and any diagnostic results supporting the discharge/admit diagnosis, the need for outpatient follow up, a appeals analyst, to return to the emergency department if symptoms worsen or persist or if there are any questions or concerns that arise at home. Administered Medications: 08:40 Drug: Hydrocodone-Acetaminophen PO (7.5 mg-325 mg) 1 tabs PO once Route: PO; kc6 08:46 Follow up: Response: No adverse reaction; Pain is decreased; RASS: Alert and Calm (0) kc6 Disposition: 09:00 Co-signature as Attending Physician, Emery Uribe MD. ec2 Disposition Summary: 12/17/22 08:31 Discharge Ordered Notes: Location: Home [facility] Problem: new [facility] Symptoms: are unchanged [facility] Condition: Stable [facility] Diagnosis - Unspecified hemorrhoids [facility] Followup: [facility] - With: Private Physician - When: 2 - 3 days - Reason: Recheck today's complaints Discharge Instructions: - Discharge Summary Sheet [facility] - High-Fiber Eating Plan [facility] - Hemorrhoids [facility] - Surgical Procedures for Hemorrhoids [facility] - Nonsurgical Procedures for Hemorrhoids [facility] Forms: - Medication Reconciliation Form [facility] - Thank You Letter [facility] - Patient Portal Instructions [facility] - Leadership Thank You Letter [facility] Prescriptions: - Anusol-HC 2.5 % Topical cream with perineal applicator - apply 1 application RECTAL route every 6 hours As needed as needed for [facility] hemorrhoids; 1 Each; Refills: 0, Product Selection Permitted - Colace 100 mg Oral Tablet - take 1 tablet ORAL route every 12 hours; 14 tablet; Refills: 0, Product [facility] Selection Permitted Signatures: Eugenie Harding FNP FNP jh7 Campbell, Kaitlyn, RN RN kc6 Emery Uribe MD MD ec2 Corrections: (The following items were deleted from the chart) 08:39 08:17 Constitutional: This is a well developed, well nourished patient who is awake, jh7 alert, and in no acute distress. Head/Face: Normocephalic, atraumatic. Eyes: Pupils equal round and reactive to light, extra-ocular motions intact. Lids and lashes normal. Conjunctiva and sclera are non-icteric and not injected. Cornea within normal limits. Periorbital areas with no swelling, redness, or edema. Cardiovascular: Regular rate and rhythm with a normal S1 and S2. No gallops, murmurs, or rubs. Normal PMI, no JVD. No pulse deficits. Respiratory: Lungs have equal breath sounds bilaterally, clear to auscultation and percussion. No rales, rhonchi or wheezes noted. No increased work of breathing, no retractions or nasal flaring. Abdomen/GI: Soft, non-tender, with normal bowel sounds. No distension or tympany. No guarding or rebound. No evidence of tenderness throughout. Back: No spinal tenderness. No costovertebral tenderness. Full range of motion. Skin: Warm, dry with normal turgor. Normal color with no rashes, no lesions, and no evidence of cellulitis. MS/ Extremity: Pulses equal, no cyanosis. Neurovascular intact. Full, normal range of motion. Neuro: Awake and alert, GCS 15, oriented to person, place, time, and situation. Motor strength 5/5 in all extremities. Sensory grossly intact. Normal gait. jh7
--- NOTE | 2022-12-17 08:32 | ER ---
Nurse's Notes [facility] Name: Brit Singh Age: 27 yrs Sex: Female : 1995 Arrival Date: 12/17/2022 Time: 08:14 Bed 17 Private MD: Diagnosis: Unspecified hemorrhoids Presentation: 12/17 08:27 Chief complaint: Patient states: rectal pain since yesterday. hx of hemorroids. kc6 Coronavirus screen: At this time, the client does not indicate any symptoms associated with coronavirus-19. Ebola Screen: No symptoms or risks identified at this time. Initial Sepsis Screen: Does the patient meet any 2 criteria? No. Patient's initial sepsis screen is negative. Does the patient have a suspected source of infection? No. Patient's initial sepsis screen is negative. Risk Assessment: Do you want to hurt yourself or someone else? Patient reports no desire to harm self or others. Onset of symptoms was December 16, 2022. 08:27 Method Of Arrival: Ambulatory [facility] 08:27 Acuity: TONI 4 kc6 Triage Assessment: 08:28 General: Appears in no apparent distress. uncomfortable, Behavior is calm, cooperative, kc6 appropriate for age. Pain: Complains of pain in buttocks. EENT: No signs and/or symptoms were reported regarding the EENT system. Neuro: Level of Consciousness is awake, alert, obeys commands, Oriented to person, place, time, situation, Appropriate for age. Cardiovascular: Capillary refill < 3 seconds. Respiratory: Airway is patent Trachea midline Respiratory effort is even, unlabored, Respiratory pattern is regular, symmetrical. GI: Reports rectal bleeding, Patient currently denies abdominal pain, diarrhea, nausea, vomiting. : No signs and/or symptoms were reported regarding the genitourinary system. Derm: No signs and/or symptoms reported regarding the dermatologic system. Skin is intact, is healthy with good turgor, Skin is pink, warm \T\ dry. Musculoskeletal: No signs and/or symptoms reported regarding the musculoskeletal system. Circulation, motion, and sensation intact. Capillary refill < 3 seconds, Range of motion: intact in all extremities. Historical: - Allergies: 08: No Known Allergies; kc6 - PMHx: 08: None; kc6 - PSHx: 08:28 None; kc6 - Immunization history:: Client reports having NOT received the Covid vaccine. Flu vaccine is not up to date. - Social history:: Smoking status: unknown. Screenin:26 [facility] ED Fall Risk Assessment (Adult) History of falling in the last 3 months, kc6 including since admission No falls in past 3 months (0 pts) Confusion or Disorientation No (0 pts) Intoxicated or Sedated No (0 pts) Impaired Gait No (0 pts) Mobility Assist Device Used No (0 pt) Altered Elimination No (0 pt) Score/Fall Risk Level 0 - 2 = Low Risk. Abuse screen: Denies threats or abuse. Denies injuries from another. Nutritional screening: No deficits noted. Tuberculosis screening: No symptoms or risk factors identified. Assessment: 08:29 Reassessment: please see triage assessment. kc6 Vital Signs: 08:27 Weight 116.57 kg (R); Height 5 ft. 4 in. ; kc6 08:31 BP 115 / 59; Pulse 72; Resp 18 S; Temp 98.3(O); Pulse Ox 97% on R/A; kc6 08:27 Body Mass Index 44.11 (116.57 kg, 162.56 cm) kc6 ED Course: 08:16 Patient arrived in ED. mg5 08:16 [facility]enie Harding FNP [facility]. jh7 08:16 Emery Uribe MD is Attending Physician. jh7 08:25 Marilin Ruth, SANKET is Primary Nurse. kc6 08:26 Patient has correct armband on for positive identification. Bed in low position. Call 6 light in reach. Side rails up X 1. Client placed on continuous cardiac and pulse oximetry monitoring. NIBP monitoring applied. 08:28 Triage completed. kc6 08:28 Arm band placed on. kc6 08:53 No provider procedures requiring assistance completed. Patient did not have IV access kc6 during this emergency room visit. Administered Medications: 08:40 Drug: Hydrocodone-Acetaminophen PO (7.5 mg-325 mg) 1 tabs PO once Route: PO; kc6 08:46 Follow up: Response: No adverse reaction; Pain is decreased; RASS: Alert and Calm (0) kc6 Medication: 08:54 VIS not applicable for this client. kc6 Outcome: 08:31 Discharge ordered by . jh7 08:54 Discharged to home ambulatory, kc6 08:54 Condition: stable 08:54 Discharge instructions given to patient, Instructed on discharge instructions, follow up and referral plans. medication usage, Demonstrated understanding of instructions, follow-up care, medications, Prescriptions given X 2, 08:54 Patient left the ED. kc6 Signatures: Eugenie Harding FNP FNP jh7 Campbell, Kaitlyn RN RN kc6 Doretha Talamantes 5
[2022-12-17] MEDS ORDERED: HYDROCODONE/APAP 7.5/325 MG TAB ONE (08:48)
== END 2022-12-17 08:54 | disposition home or self-care (01) ==
LOC: ER 08:14
DX: K64.9 Unspecified hemorrhoids (principal)
CPT/HCPCS: 99283

== ENCOUNTER 2022-12-18 22:07 | Emergency (ER) | payer OTHER ==
--- OUTSIDE RECORDS SUMMARY | 2022-12-18 22:22 | XMS REPORT | Continuity of Care Document ---
:1995 Author Organization [facility] t Address [address] [facility] [address] [place] [id number] Care Team Providers Name Role Phone PCP, PATIENT DOES NOT HAVE A Primary Care Physician UnavailNAYELI Johnson Attending Clinician Unavailable Irma CURIEL, Nayeli Mann Attending Clinician Elena CURIEL, Yojana Attending Clinician Doctor Unassigned, [place] Attending Clinician Unavailable Cherri Li RN Attending Clinician Unavailable Royal Atkinson NP Attending Clinician SADIA HAYS Attending Clinician Unavailable Ultrasound, [facility] Attending Clinician Unavailable Sadia Hays MD Attending Clinician [phone] Room, [facility] Attending Clinician Unavailable YOJANA PARKER Attending Clinician Unavailable Pob, [facility] Attending Clinician Unavailable Nuvia Hercules LMSW Attending Clinician MONICA NAJERA Attending Clinician Unavailable Monica Najera MD Attending Clinician Fellow, [facility] Attending Clinician Unavailable Jaswinder Valle DO Attending Clinician JASWINDER VALLE Attending Clinician Unavailable Paradise Meza MD Attending Clinician PARADISE MEZA Attending Clinician Unavailable PARADISE MEZA Attending Clinician Unavailable AMINA BUITRAGO Attending Clinician Unavailable AMINA BUITRAGO Attending Clinician Unavailable Nurse, [facility] Attending Clinician Unavailable Amina Buitrago MD Attending Clinician ROYAL ATKINSON Attending Clinician Unavailable 1, [facility] Attending Clinician Unavailable Mary Gonzalez MD Attending Clinician MARY GONZALEZ Attending Clinician Unavailable SEFERINO AMBROSE Attending Clinician Unavailable Seferino Ambrose MD Attending [...] Unavailable ELEANOR FOOTE Attending Clinician Unavailable Yaya LAVERN, Latasha Campbell Attending Clinician [phone] Oneida Kurtz MD Attending Clinician NICA CARPENTER Attending Clinician Unavailable [facility], [facility] Attending Clinician Unavailable LATASHA HAM Attending Clinician Unavailable ONEIDA KURTZ Attending Clinician Unavailable Yuliana Leigh PA-C Attending Clinician Elkin Cruz MD Attending Clinician Ultrasound, [facility] Attending Clinician Unavailable Nurse, [facility] Attending Clinician Unavailable YULIANA LEIGH Attending Clinician Unavailable Nuvia Garcia RN Attending Clinician Unavailable DANI ZHU Attending Clinician Unavailable Nisha Feliz Attending Clinician Unavailable Dani Zhu MD Attending Clinician 2, [facility] Attending Clinician Unavailable Nahun Moseley CRNA Attending Clinician Francheska Yip MD, Leonard Attending Clinician Tata Cowan MD Attending Clinician YOAJNA PARKER Admitting Clinician Unavailable NAYELI SOLIS Admitting Clinician Unavailable Nayeli Solis MD Admitting Clinician MONICA NAJERA Admitting Clinician Unavailable Monica Najera MD Admitting Clinician EDGAR OLIVA Admitting Clinician Unavailable Physician, No Primary or Family Admitting Clinician UnavailIRVIN Dle Cid Admitting Clinician Unavailable JORDEN BROOKE Admitting Clinician Unavailable MAKAYLA BETTENCOURT Admitting Clinician Unavailable Oneida Kurtz MD Admitting Clinician Payers Payer Name Policy Type Policy Number Effective Date Expiration Date [facility] [id number] 2021 STAR 00:00:00 [facility] [id number] 2019 PPO 00:00:00 [place] [id number] 2011 OF STATE 00:00:00 Problems Condition Condition Condition Status Onset Resolution Last Treating Co mments Source Name Details Category Date Date Treatment Clinician Date Maternal Maternal Disease Active Unive rs pregestati pregestati 8-14 it y of onal onal 00:00: [place] diabetes diabetes 00 Medica l classes B classes B Bran ch through R, through R, antepartum antepartum 37 weeks 37 weeks Disease Active Unive rs gestation gestation 8-14 ity of of of 00:00: [place] 00 [facility] Maternal Maternal Disease Active Unive rs pregestati pregestati 8-14 it y of onal onal 00:00: [place] diabetes diabetes 00 Medica l classes B classes B Bran ch through R, through R, antepartum antepartum Previous Previous Disease Active Unive rs 6-20 ity of section section 00:00: [place] 00 [facility] History of History of Disease Active U nivers 6-20 ity of delivery, delivery, 00:00: Steve lucas currently currently 00 [facility] , , Bran ch unspecifie unspecifie d d trimester trimester 28 weeks 28 weeks Disease Active Unive rs gestation gestation 6-15 ity of of of 00:00: [place] 00 [facility] Pregestati Pregestati Disease Active U nivers onal onal 8-02 ity of diabetes diabetes 00:00: [place] mellitus, mellitus, 00 [facility] modified modified [place] White White class B class B Liveborn Liveborn Disease Active Unive rs , of , of 8-02 it y of [place] 00:00: Steve lucas , , 00 Me dical born in born in [facility] hospital by by delivery delivery Morbid Morbid Disease Active Univers obesity obesity 3-17 ity of with body with body 00:00: Steve s mass index mass index 00 Me dical of Branch 40.0-49.9 40.0-49.9 High risk High risk Disease Active Uni vers , , 2-17 it y of antepartum [place] 00:[place] 00 [place] History of History of Disease Active U [...] Allergie 2-05 Clear s 00:00: [place] 00 [facility] NO KNOWN Drug Active Univers ALLERGIE Class ity of S [facility] Social History Social Habit Start Date Stop Date Quantity Comments Source ASSERTION 2022-02-05 University of 00:00:00 [facility] Gender identity Universit y of [facility] Sexual orientation Univer sity of [facility] History [facility] o f Alcohol Frequency [facility] edical Branch History [facility] University o f Alcohol Std Drinks [place] Medical [place] History [facility] o f Alcohol Binge [facility] al Branch Alcohol intake 2022-10-23 2022-10-23 0 /d University of 00:00:00 00:00:00 [facility] Exposure to 2022-07-07 2022-07-17 Not sure University of SARS-CoV-2 (event) 00:00:00 13:30:00 [facility] History of Social 2021-11-10 2021-11-10 Univers ity of function 00:00:00 00:00:00 [facility] Tobacco use and 2021-09-04 2021-09-04 Smokeless tobacco Un iversity of exposure 00:00:00 00:00:00 non-user [facility] Alcohol Comment 2021-03-16 2021-03-16 ocassional Universit y of 00:00:00 00:00:00 [facility] History of tobacco 2019-12-24 Cigarette Smoker University of use 00:00:00 [facility] Sex Ass[birth year] At [birth year] Universit y of 00:00:00 00:00:00 [facility] Smoking Status Start Date Stop Date Source Ex-smoker 2021-09-04 00:00:00 2021-09-04 00:00:00 [facility] Medications Ordered Filled Start Stop Current Ordering Indication Dosage Frequency Signature Comments Components Source Medication Medication Date Date Medication? Clinician (SIG) Name Name ibuprofen Yes 600mg 600 mg, Univ ers (IBU) 8-16 Oral, Q6H ity of tablet 600 05:00: ABX, First [place] mg 00 dose on 10/10/22 at 0000, Until Discontinu ed, Routine HYDROcodone [...] 2022- No Take by Univer s sulfate 10-09 mouth. ity of (IRON ORAL) 07:05: 00:00 [place] 15 :00 [facility] ferrous 2022- No Take by Univer s sulfate 10-09 mouth. ity of (IRON ORAL) 07:05: 00:00 [place] 15 :00 [facility] ketorolac 2022- Yes 30mg 30 mg, Unive rs (TORADOL) 10-09 Slow IV ity of injection 05:00: 04:59 [place], Q6H [place] 30 mg 00 :00 ABX, 4 Medical doses, Branch First dose on Sat10/09/22 at 0000, Last dose on Sat10/09/22 at 1800, Routine ketorolac 0 202- No 30mg 30 mg, Unive rs (TORADOL) 8-15 08-15 Slow IV ity of injection 05:00: 22:33 [place], Q6H [place] 30 mg 00 :34 ABX, 4 Medical doses, Branch First dose on Sat10/09/22 at 0000, Last dose on Sat10/09/22 at 1800, Routine acetaminoph 0 Yes [id number] 650mg Take 2 Univers en 325 mg 8-15 tablets by ity of tablet 00:00: mouth [place] 00 every 6 Medical (six) Branch hours as needed for Pain (scale 1-3) or Pain (scale 4-6). Yes [id number] 1{tbl} Take 1 Univers vitamin 8-15 tablet by ity of w/FA tablet 00:00: mouth in [place] 00 the Medical morning. Branch docusate Yes [id number] 200mg Take 2 U nivers 100 mg 8-15 capsules ity of capsule 00:00: by mouth [place] 00 once daily Medical as needed Branch for Constipati on. ferrous 0 Yes [id number] 325mg Take 1 Un ita sulfate 325 8-15 tablet by ity of mg (65 mg 00:00: [place] iron[place] 00 the Medical tablet morning Branch and 1 tablet in the evening. ibuprofen Yes [id number] 600mg Take 1 Univers 600 mg 8-15 tablet by ity of tablet 00:00: mouth [place] 00 every 6 Medical (six) Branch hours as needed (Pain). Take with food or milk. acetaminoph Yes [id number] 650mg Take 2 Univers en 325 mg 8-15 tablets by ity of tablet 00:00: mouth [place] 00 every 6 Medical (six) Branch hours as needed for Pain (scale 1-3) or Pain (scale 4-6). 0 Yes [id number] 1{tbl} Take 1 Univers vitamin 8-15 tablet by ity of w/FA tablet 00:00: mouth in [place] 00 the Medical morning. Branch docusate 0 Yes [id number] 200mg Take 2 U nivers 100 mg 8-15 capsules ity of capsule 00:00: by mouth [place] 00 once daily Medical as needed Branch for Constipati on. ferrous 2022-0 Yes [id number] 325mg Take 1 Un ita sulfate 325 8-15 tablet by ity of mg (65 mg 00:00: [place] iron[place] 00 the Medical tablet morning Branch and 1 tablet in the evening. ibuprofen 2022-0 Yes [id number] 600mg Take 1 Univers 600 mg 8-15 tablet by ity of tablet 00:00: mouth [place] 00 every 6 Medical (six) Branch hours as needed (Pain). Take with food or milk. acetaminoph 2022-0 Yes [id number] 650mg Take 2 Univers en 325 mg 8-15 tablets by ity of tablet 00:00: mouth [place] 00 every 6 Medical (six) Branch hours as needed for Pain (scale 1-3) or Pain (scale 4-6). 2022-0 Yes [id number] 1{tbl} Take 1 Univers vitamin 8-15 tablet by ity of w/FA tablet 00:00: mouth in [place] 00 the Medical morning. Branch docusate 2022-0 Yes [id number] 200mg Take 2 U nivers 100 mg 8-15 capsules ity of capsule 00:00: by mouth [place] 00 once daily Medical as needed Branch for Constipati on. ferrous 2022-0 Yes [id number] 325mg Take 1 Un ita sulfate 325 8-15 tablet by ity of mg (65 mg 00:00: [place] iron[place] 00 the Medical tablet morning Branch and 1 tablet in the evening. ibuprofen 2022-0 Yes [id number] 600mg Take 1 Univers 600 mg 8-15 tablet by ity of tablet 00:00: mouth [place] 00 every 6 Medical (six) Branch hours as needed (Pain). Take with food or milk. acetaminoph 2022-0 Yes [id number] 650mg Take 2 Univers en 325 mg 8-15 tablets by ity of tablet 00:00: mouth [place] 00 every 6 Medical (six) Branch hours as needed for Pain (scale 1-3) or Pain (scale 4-6). 2022-0 Yes [id number] 1{tbl} Take 1 Univers vitamin 8-15 tablet by ity of w/FA tablet 00:00: mouth in [place] 00 the Medical morning. Branch docusate 0 Yes [id number] 200mg Take 2 U nivers 100 mg 8-15 capsules ity of capsule 00:00: by mouth [place] 00 once daily Medical as needed Branch for Constipati on. ferrous 2022-0 Yes [id number] 325mg Take 1 Un ita sulfate 325 8-15 tablet by ity of mg (65 mg 00:00: [place] iron[place] 00 the Medical tablet morning Branch and 1 tablet in the evening. ibuprofen 0 Yes [id number] 600mg Take 1 Univers 600 mg 8-15 tablet by ity of tablet 00:00: mouth [place] 00 every 6 Medical (six) Branch hours as needed (Pain). Take with food or milk. acetaminoph 0 Yes [id number] 650mg Take 2 Univers en 325 mg 8-15 tablets by ity of tablet 00:00: mouth [place] 00 every 6 Medical (six) Branch hours as needed for Pain (scale 1-3) or Pain (scale 4-6). 0 Yes [id number] 1{tbl} Take 1 Univers vitamin 8-15 tablet by ity of w/FA tablet 00:00: mouth in [place] 00 the Medical morning. Branch docusate 0 Yes [id number] 200mg Take 2 U nivers 100 mg 8-15 capsules ity of capsule 00:00: by mouth [place] 00 once daily Medical as needed Branch for Constipati on. ferrous 0 Yes [id number] 325mg Take 1 Un ita sulfate 325 8-15 tablet by ity of mg (65 mg 00:00: [place] iron[place] 00 the Medical tablet morning Branch and 1 tablet in the evening. ibuprofen 0 Yes [id number] 600mg Take 1 Univers 600 mg 8-15 tablet by ity of tablet 00:00: mouth [place] 00 every 6 Medical (six) Branch hours as needed (Pain). Take with food or milk. acetaminoph 0 Yes [id number] 650mg Take 2 Univers en 325 mg 8-15 tablets by ity of tablet 00:00: mouth [place] 00 every 6 Medical (six) Branch hours as needed for Pain (scale 1-3) or Pain (scale 4-6). 2022-0 Yes [id number] 1{tbl} Take 1 Univers vitamin 8-15 tablet by ity of w/FA tablet 00:00: mouth in [place] 00 the Medical morning. Branch docusate 2022-0 Yes [id number] 200mg Take 2 U nivers 100 mg 8-15 capsules ity of capsule 00:00: by mouth [place] 00 once daily Medical as needed Branch for Constipati on. ferrous 2022-0 Yes [id number] 325mg Take 1 Un ita sulfate 325 8-15 tablet by ity of mg (65 mg 00:00: [place] iron[place] 00 the Medical tablet morning Branch and 1 tablet in the evening. ibuprofen 2022-0 Yes [id number] 600mg Take 1 Univers 600 mg 8-15 tablet by ity of tablet 00:00: mouth [place] 00 every 6 Medical (six) Branch hours as needed (Pain). Take with food or milk. acetaminoph 2022-0 Yes [id number] 650mg Take 2 Univers en 325 mg 8-15 tablets by ity of tablet 00:00: mouth [place] 00 every 6 Medical (six) Branch hours as needed for Pain (scale 1-3) or Pain (scale 4-6). 2022-0 Yes [id number] 1{tbl} Take 1 Univers vitamin 8-15 tablet by ity of w/FA tablet 00:00: mouth in [place] 00 the Medical morning. Branch docusate 2022-0 Yes [id number] 200mg Take 2 U nivers 100 mg 8-15 capsules ity of capsule 00:00: by mouth [place] 00 once daily Medical as needed Branch for Constipati on. ferrous 2022-0 Yes [id number] 325mg Take 1 Un ita sulfate 325 8-15 tablet by ity of mg (65 mg 00:00: [place] iron[place] 00 the Medical tablet morning Branch and 1 tablet in the evening. ibuprofen 2022-0 Yes [id number] 600mg Take 1 Univers 600 mg 8-15 tablet by ity of tablet 00:00: mouth [place] 00 every 6 Medical (six) Branch hours as needed (Pain). Take with food or milk. gabapentin 2022-0 2023- Yes [id number] 300mg Take 1 Univers 300 mg 8-15 08-21 capsule by ity of capsule 00:00: 04:59 mouth in [place] 00 :00 the Medical morning Branch and 1 capsule at noon and 1 capsule in the evening. Do all this for 5 days. gabapentin 2023-0 2023- Yes [id number] 300mg Take 1 Univers 300 mg 8- capsule by ity of capsule 00:00: 04:59 mouth in [place] 00 :00 the [facility] and 1 capsule at noon and 1 capsule in the evening. Do all this for 5 days. acetaminoph 2023-0 Yes 650mg 650 mg, Un ita en 8-14 Oral, Q6H ity of (TYLENOL) 23:00: ABX, First [place] tablet 650 00 dose on Medica l mg [facility] 10/08/22 at 1800, Until Discontinu ed, Routine acetaminoph 2023-0 Yes 650mg 650 mg, Un ita en 8-14 Oral, Q6H ity of (TYLENOL) 23:00: ABX, First [place] tablet 650 00 dose on Medica l mg [facility] 10/08/22 at 1800, Until Discontinu ed, Routine gabapentin 2023-0 Yes 300mg 300 mg, Uni vers (NEURONTIN) 8-14 Oral, TID, it y of capsule 300 19:00: First dose [place] mg 00 on [facility] 10/08/22 at Branch 1400, Until Discontinu ed, Routine gabapentin 2023-0 Yes 300mg 300 mg, Uni vers (NEURONTIN) 8-14 Oral, TID, it y of capsule 300 19:00: First dose [place] mg 00 on [facility] 10/08/22 at [place] 1400, Until Discontinu ed, Routine HYDROcodone 2023-0 Yes 1{tbl} 1 tablet, Univers -acetaminop 8-14 Oral, ity of hen (NORCO 17:00: Q6HPRN, [place] 5) 5-325 mg 00 Starting Medi silver tablet 1 on [facility] tablet 10/08/22 at 1200, Until Discontinu ed, Routine, Pain (scale 7-10), Alternate with Ibuprofen HYDROcodone 2023-0 Yes 1{tbl} 1 tablet, Univers -acetaminop 8-14 Oral, ity of hen (NORCO 17:00: Q6HPRN, [place] 5) 5-325 mg 00 Starting Medi silver tablet 1 on [facility] tablet 10/08/22 at 1200, Until Discontinu ed, Routine, Pain (scale 7-10), Alternate with Ibuprofen lactated 0 2022- No 1000mL at [address] [facility] ers ringers IV 10-08 08-14 mL/hr, ity of infusion 14:15: 23:37 1,000 mL, [place] 1,000 mL 00 :00 IV Medical Infusion, Branch ONCE, 1 dose, On Sat10/08/22 at 0915, Routine rho(D) 0 Yes 300ug 300 mcg, Univer s immune 10-08 Intramuscu ity of globulin 14:07: lar, ONCE, [place] (RHOGAM) 25 For 1 Medical syringe 300 dose, Branch mcg Conditiona l, Routine rho(D) 0 Yes 300ug 300 mcg, Univer s immune 10-08 Intramuscu ity of globulin 14:07: lar, ONCE, [place] (RHOGAM) 25 For 1 Medical syringe 300 dose, Branch mcg Conditiona l, Routine diphenhydrA 0 Yes 25mg 25 mg, [place] [facility] MINE 10-08 Slow IV ity of (BENADRYL) 14:07: Push, [place] injection 17 Q6HPRN, Medical 25 mg Starting Branch on Sat10/08/22 at 0907, Until Discontinu ed, Routine, Itching diphenhydrA 0 Yes 25mg 25 mg, [place] [facility] MINE 10-08 Oral, ity of (BENADRYL) 14:07: [facility]N, [facility] Starting Medica l mg on Sat10/08/22 at 0907, Until Discontinu ed, Routine, Sleep, Itching ondansetron 0 Yes 4mg 4 mg, Slow Univers (ZOFRAN 10-08 IV Push, ity of (PF)) 14:07: Q8HPRN, [place] injection 4 17 Starting Medi silver mg on Sat10/08/22 at 0907, Until Discontinu ed, Routine, Nausea and Vomiting (N/V) bisacodyL 0 Yes 10mg [facility] Rectal, ity of suppository 14:07: QDAILYPRN, [place] 10 mg 17 Starting Medical on Sat10/08/22 at 0907, Until Discontinu ed, Routine, Constipati on simethicone 3-0 Yes 160mg 160 mg, Un ita (GAS RELIEF 8-14 Oral, ity of (SIMETHICON 14:07: PC+HSPRN, [place] E)) 17 Starting Medical chewable on Sat Branch tablet 160 10/08/22 at mg 0907, Until Discontinu ed, Routine, Gas docusate 3-0 Yes 200mg 200 mg, Unive rs (COLACE) 8-14 Oral, ity of capsule 200 14:07: QDAILYPRN, [place] mg 17 Starting Medical on Sat Branch 10/08/22 at 0907, Until Discontinu ed, Routine, Constipati on magnesium 2022-0 Yes 30mL 30 mL, Univer s hydroxide 8-14 Oral, ity of (MILK OF 14:07: QDAILYPRN, [place] as MAGNESIA) 17 Starting Medica l 400 mg/5 mL on Sat suspension 10/08/22 at 30 mL 0907, Until Discontinu ed, Routine, Constipati on lactated 2022-0 Yes 1000mL at 125 Unive rs ringers IV 8-14 mL/hr, ity of infusion 14:07: 1,000 mL, [place] 1,000 mL 17 IV Medical Infusion, Branch PRN, 1 dose, Starting on Sat10/08/22 at 0907, Until Discontinu ed, Routine diphenhydrA 3-0 Yes 25mg 25 mg, Univ ers MINE [...] 4 17 Starting Medi silver mg on Sat Branch 10/08/22 at 0907, Until Discontinu ed, Routine, Nausea and Vomiting (N/V) bisacodyL 2023-0 Yes 10mg 10 mg, Univer s (DULCOLAX) 8-14 Rectal, ity of suppository 14:07: QDAILYPRN, [place] 10 mg 17 Starting Medical on Sat Branch 10/08/22 at 0907, Until Discontinu ed, Routine, Constipati on simethicone 2023-0 Yes 160mg 160 mg, Un ita (GAS RELIEF 8-14 Oral, ity of (SIMETHICON 14:07: PC+HSPRN, [place] E)) 17 Starting Medical chewable on Sat tablet 160 10/08/22 at mg 0907, Until Discontinu ed, Routine, Gas docusate 3-0 Yes 200mg 200 mg, Unive rs (COLACE) 8-14 Oral, ity of capsule 200 14:07: QDAILYPRN, [place] mg 17 Starting Medical on Sat Branch 10/08/22 at 0907, Until Discontinu ed, Routine, Constipati on magnesium 2022-0 Yes 30mL 30 mL, Univer s hydroxide 8-14 Oral, ity of (MILK OF 14:07: QDAILYPRN, [place] MAGNESIA) 17 Starting Medica l 400 mg/5 mL on Sat Branch suspension 10/08/22 at 30 mL 0907, Until Discontinu ed, Routine, Constipati on lactated 3-0 Yes 1000mL at 125 Unive rs ringers IV 8-14 mL/hr, ity of infusion 14:07: 1,000 mL, [place] 1,000 mL 17 IV Medical Infusion, Branch PRN, 1 dose, Starting on Sat10/08/22 at 0907, Until Discontinu ed, Routine mupirocin 3-0 Yes Intra-op Univ ers (BACTROBAN 8-14 ity of OINT) 2 % 13:39: [place] skin 00 Medical ointment Branch mupirocin 3-0 Yes Intra-op Univ ers (BACTROBAN 8-14 ity of OINT) 2 % 13:39: [place] skin 00 Medical ointment Branch sodium 3-0 Yes PRN, Univers chloride 8-14 Starting ity of 0.9 % 12:15: on Mon [place] irrigation 00 10/08/22 at [facility] ical solution 0715, Branch Until Discontinu ed, Intra-op sodium 0 Yes PRN, Univers chloride 10-08 Starting ity of 0.9 % 12:15: on Sat [place] irrigation 10/08/22 at [facility] ical solution 0715, Branch Until Discontinu ed, Intra-op Sliding 2022-3- No Subcutaneo Uni vers Scale 10-08 us, ity of Insulin 10:19: 14:07 SEE-INSTRU [place] 09 :24 CTIONS, Medical Starting Branch on Sat10/08/22 at 0519, Until Sat10/08/22 at 0907, Routine sodium 2022- No 30mL 30 mL, Univers citrate-cit 10-08 Oral, ity of bryson acid 10:19: 12:12 PRE-PROCED [place] (BICITRA) 09 :00 URE ONCE, Medic al 500-334 1 dose, Branch mg/5 mL Starting solution 30 on Sat mL 10/08/22 at 0519, Until Discontinu ed, Routine, Surgery/Pr ocedure lactated 2022- No 500mL at 999 Unive rs ringers IV 10-08- mL/hr, 500 it y of infusion 10:19: 14:07 mL, IV [place] 500 mL 09 :24 Infusion, Medical PRN - SEE Branch INSTRUCTIO NS, Starting on Sat10/08/22 at 0519, Until Sat10/08/22 at 0907, Routine NaCl 0.9% Yes 1000mL at 999 Univ ers (NS) IV 8-12 mL/hr, IV ity of infusion 00:30: Infusion, [place] 1,000 mL 00 CONTINUOUS Medic al , Starting Branch on Sat10/05/22 at 1930, Until Discontinu ed, Routine ferrous Yes Take by Univers sulfate 8-11 mouth. ity of (IRON ORAL) 21:43: [address] ferrous 2022-0 Yes Take by Univers sulfate 7-30 mouth. ity of (IRON ORAL) 02:01: [address] ferrous 2022-0 Yes Take by Univers sulfate 7-30 mouth. ity of (IRON ORAL) 02:01: [address] ferrous 2022-0 Yes Take by Univers sulfate 7-30 mouth. ity of (IRON ORAL) 02:01: [address] ferrous 2023-0 Yes Take by Univers sulfate 7-30 mouth. ity of (IRON ORAL) 02:01: [address] ferrous 2023-0 Yes Take by Univers sulfate 7-30 mouth. ity of (IRON ORAL) 02:01: [address] ferrous 2023-0 Yes Take by Univers sulfate 7-30 mouth. ity of (IRON ORAL) 02:01: [address] ferrous 2023-0 Yes Take by Univers sulfate 7-24 mouth. ity of (IRON ORAL) 17:46: [address] ferrous 2023-0 Yes Take by Univers sulfate 7-24 mouth. ity of (IRON ORAL) 17:46: [address] ferrous 2023-0 Yes Take by Univers sulfate 7-18 mouth. ity of (IRON ORAL) 11:30: [address] ferrous 2023-0 Yes Take by Univers sulfate 7-18 mouth. ity of (IRON ORAL) 11:30: [address] ferrous 2023-0 Yes Take by Univers sulfate 7-18 mouth. ity of (IRON ORAL) 11:30: [address] ferrous 2023-0 Yes Take by Univers sulfate 7-18 mouth. ity of (IRON ORAL) 11:30: [address] ferrous 2023-0 Yes Take by Univers sulfate 7-18 mouth. ity of (IRON ORAL) 11:30: [address] ferrous 2023-0 Yes Take by Univers sulfate 7-18 mouth. ity of (IRON ORAL) 11:30: [address] ferrous 2023-0 Yes Take by Univers sulfate 7-18 mouth. ity of (IRON ORAL) 11:30: [address] ferrous 2023-0 Yes Take by Univers sulfate 7-18 mouth. ity of (IRON ORAL) 11:30: [address] ferrous 2023-0 Yes Take by Univers sulfate 7-18 mouth. ity of (IRON ORAL) 11:30: [address] ferrous 2023-0 Yes Take by Univers sulfate 7-09 mouth. ity of (IRON ORAL) 05:05: [address] ferrous 2023-0 Yes Take by Univers sulfate 7-02 mouth. ity of (IRON ORAL) 07:04: [place] 45 Medical Branch metFORMIN 2023-0 Yes [id number] 1000mg Take 1 Univers 1,000 mg 6-15 tablet by ity of tablet 00:00: mouth at [place] [address] bedtime. Medical Branch metFORMIN 2023-0 Yes [id number] 1000mg Take 1 Univers 1,000 mg 6-15 tablet by ity of tablet 00:00: mouth at [place] 00 bedtime. Medical Branch metFORMIN 2023-0 Yes [id number] 1000mg Take 1 Univers 1,000 mg 6-15 tablet by ity of tablet 00:00: mouth at [place] 00 bedtime. Medical Branch metFORMIN 2023-0 Yes [id number] 1000mg Take 1 Univers 1,000 mg 6-15 tablet by ity of tablet 00:00: mouth at [place] [address] bedtime. Medical Branch metFORMIN 2023-0 Yes [id number] 1000mg Take 1 Univers 1,000 mg 6-15 tablet by ity of tablet 00:00: mouth at [place] [address] bedtime. Medical Branch metFORMIN 2023-0 Yes [id number] 1000mg Take 1 [facility] 1,000 mg 6-15 tablet by ity of tablet 00:00: mouth at [place] [address] bedtime. Medical Branch metFORMIN 2023-0 Yes [id number] 1000mg Take 1 [facility] 1,000 mg 6-15 tablet by ity of tablet 00:00: mouth at [place] [address] bedtime. Medical Branch metFORMIN 2023-0 Yes [id number] 1000mg Take 1 [facility] 1,000 mg 6-15 tablet by ity of tablet 00:00: mouth at [place] [address] bedtime. Medical Branch metFORMIN 2023-0 Yes [id number] 1000mg Take 1 [facility] 1,000 mg 6-15 tablet by ity of tablet 00:00: mouth at [place] [address] bedtime. Medical Branch metFORMIN 2023-0 Yes [id number] 1000mg Take 1 [facility] 1,000 mg 6-15 tablet by ity of tablet 00:00: mouth at [place] [address] bedtime. Medical Branch metFORMIN 2023-0 Yes [id number] 1000mg Take 1 [facility] 1,000 mg 6-15 tablet by ity of tablet 00:00: mouth at [place] [address] bedtime. Medical Branch metFORMIN 2023-0 Yes [id number] 1000mg Take 1 [facility] 1,000 mg 6-15 tablet by ity of tablet 00:00: mouth at [place] [address] bedtime. Medical Branch metFORMIN 2023-0 Yes [id number] 1000mg Take 1 [facility] 1,000 mg 6-15 tablet by ity of tablet 00:00: mouth at [place] [address] bedtime. Medical Branch metFORMIN 2023-0 Yes [id number] 1000mg Take 1 [facility] 1,000 mg 6-15 tablet by ity of tablet 00:00: mouth at [place] [address] bedtime. Medical Branch metFORMIN 2023-0 Yes [id number] 1000mg Take 1 [facility] 1,000 mg 6-15 tablet by ity of tablet 00:00: mouth at [place] [address] bedtime. Medical Branch metFORMIN 2023-0 Yes [id number] 1000mg Take 1 [facility] 1,000 mg 6-15 tablet by ity of tablet 00:00: mouth at [place] [address] bedtime. Medical Branch metFORMIN 2023-0 Yes [id number] 1000mg Take 1 [facility] 1,000 mg 6-15 tablet by ity of tablet 00:00: mouth at [place] [address] bedtime. Medical Branch metFORMIN 2023-0 Yes [id number] 1000mg Take 1 [facility] 1,000 mg 6-15 tablet by ity of tablet 00:00: mouth at [place] [address] bedtime. Medical Branch metFORMIN 2023-0 Yes [id number] 1000mg Take 1 [facility] 1,000 mg 6-15 tablet by ity of tablet 00:00: mouth at [place] [address] bedtime. Medical Branch metFORMIN 2023-0 Yes [id number] 1000mg Take 1 [facility] 1,000 mg 6-15 tablet by ity of tablet 00:00: mouth at [place] [address] bedtime. Medical Branch metFORMIN 2023-0 Yes [id number] 1000mg Take 1 [facility] 1,000 mg 6-15 tablet by ity of tablet 00:00: mouth at [place] [address] bedtime. Medical Branch metFORMIN 2023-0 Yes [id number] 1000mg Take 1 [facility] 1,000 mg 6-15 tablet by ity of tablet 00:00: mouth at [place] [address] bedtime. Medical Branch metFORMIN 2023-0 Yes [id number] 1000mg Take 1 [facility] 1,000 mg 6-15 tablet by ity of tablet 00:00: mouth at [place] [address] bedtime. Medical Branch metFORMIN 2023-0 Yes [id number] 1000mg Take 1 [facility] 1,000 mg 6-15 tablet by ity of tablet 00:00: mouth at [place] [address] bedtime. Medical Branch metFORMIN 2023-0 Yes [id number] 1000mg Take 1 [facility] 1,000 mg 6-15 tablet by ity of tablet 00:00: mouth at [place] [address] bedtime. Medical Branch metFORMIN 2023-0 2023- No [id number] 1000mg Take 1 [facility] 1,000 mg 6-15 08-15 tablet by ity o f tablet 00:00: 00:00 mouth at [place] 00 :00 bedtime. [facility] Branch metFORMIN 2022-0 2022- No [id number] 1000mg Take 1 [facility] 1,000 mg 6-15 08-15 tablet by ity o f tablet 00:00: 00:00 mouth at [place] 00 :00 bedtime. [facility] Branch ferrous 2022-0 Yes Take by [facility] sulfate 6-12 mouth. ity of (IRON ORAL) 10:13: [address] ferrous 2022-0 Yes Take by [facility] sulfate 6-12 mouth. ity of (IRON ORAL) 10:13: [address] ferrous 2022-0 Yes Take by [facility] sulfate 6-12 mouth. ity of (IRON ORAL) 10:13: [address] ferrous 0 Yes Take by [facility] sulfate 6-12 mouth. ity of (IRON ORAL) 10:13: [address] ferrous 2022-0 Yes Take by [facility] sulfate 6-12 mouth. ity of (IRON ORAL) 10:13: [address] ferrous 0 Yes Take by [facility] sulfate 6-12 mouth. ity of (IRON ORAL) 10:13: [address] meclizine 2022-2022- No 25mg 25 mg, Unive rs (TRAVEL-EAS 07-17 Oral, ity of E 20:00: 19:53 ONCE, 1 [place] (MECLIZINE) 00 :00 dose, On Medi silver ) tablet 25 Tue Branch mg 07/17/22 at 1500, JOSI Blood Sugar Yes Check Unive rs Diagnostic, 5-17 blood ity of Disc Strp 00:00: sugar 4 [place] 00 times a Medical day as Branch directed. Lancets Yes Check [facility] Misc 5-17 blood ity of 00:00: sugars 4 [place] 00 times a Medical day as Branch directed. Blood-Gluco Yes Check Unive rs se Meter 5-17 blood ity of (BLOOD 00:00: sugar 4 [place] GLUCOSE 00 times Medical MONITORING) daily as Bran ch Kit directed. Brand per Insurance. ferrous 0 Yes [id number] 325mg Take 1 Uni vers sulfate 5-17 tablet by ity of (IRON, 00:00: mouth in [place] FERROUS 00 the Medical SULFATE,) morning. Branch 325 mg (65 mg iron) tablet ascorbic 3-0 Yes [id number] 500mg Take 1 Un ita acid, 5-17 tablet by ity of vitamin C, 00:00: mouth in [place] 500 mg 00 the Medical tablet morning. Branch aspirin 81 2022-0 Yes [id number] 81mg Take 1 U nivers mg EC 5-17 tablet by ity of tablet 00:00: mouth in [place] 00 the Medical morning. Branch Alcohol 2022-0 Yes Apply to [facility] Swabs PadM 5-17 area 4 ity of 00:00: times a [place] 00 day to Medical check Branch blood sugar as directed. Blood Sugar 0 Yes Check [facility] rs Diagnostic, 5-17 blood ity of Disc Strp 00:00: sugar 4 [place] 00 times a Medical day as Branch directed. Lancets 0 Yes [facility] of 00:00: sugars 4 [place] 00 times a Medical day as Branch directed. Blood-Gluco Yes Check [facility] [facility] se Meter 5-17 blood ity of (BLOOD 00:00: sugar 4 [place] GLUCOSE 00 times Medical MONITORING) daily as Bran ch Kit directed. Brand per Insurance. ferrous 2022-0 Yes [id number] 325mg Take 1 [facility] vers sulfate 5-17 tablet by ity of (IRON, 00:00: mouth in [place] FERROUS 00 the Medical SULFATE,) morning. Branch 325 mg (65 mg iron) tablet ascorbic 2022-0 Yes [id number] 500mg Take 1 Un ita acid, 5-17 tablet by ity of vitamin C, 00:00: mouth in [place] 500 mg 00 the Medical tablet morning. Branch aspirin 81 2022-0 Yes [id number] 81mg Take 1 U nivers mg EC 5-17 tablet by ity of tablet 00:00: mouth in [place] 00 the Medical morning. Branch Alcohol 2022-0 Yes Apply to [facility] Swabs PadM 5-17 area 4 ity [...] directed. Brand per Insurance. ferrous 2022-0 Yes [id number] 325mg Take 1 Uni vers sulfate 5-17 tablet by ity of (IRON, 00:00: mouth in [place] FERROUS 00 the Medical SULFATE,) morning. Branch 325 mg (65 mg iron) tablet ascorbic 2022-0 Yes [id number] 500mg Take 1 Un ita acid, 5-17 tablet by ity of vitamin C, 00:00: mouth in [place] 500 mg 00 the Medical tablet morning. Branch aspirin 81 0 Yes [id number] 81mg Take 1 U nivers mg EC 5-17 tablet by ity of tablet 00:00: mouth in [place] 00 the Medical morning. Branch Alcohol Yes Apply to [facility] s Swabs Pad 5-17 area 4 ity of 00:00: times a [place] 00 day to Medical check Branch blood sugar as directed. Blood Sugar Yes Check [facility] rs Diagnostic, 5-17 blood ity of Disc Strp 00:00: sugar 4 [place] 00 times a Medical day as Branch directed. Lancets 0 Yes Check [facility] Misc 5-17 blood ity of 00:00: sugars 4 [place] 00 times a Medical day as Branch directed. Blood-Gluco 0 Yes Check Unive rs se Meter 5-17 blood ity of (BLOOD 00:00: sugar 4 [place] GLUCOSE 00 times Medical MONITORING) daily as Bran ch Kit directed. Brand per Insurance. ferrous 2022-0 Yes [id number] 325mg Take 1 Uni vers sulfate 5-17 tablet by ity of (IRON, 00:00: mouth in [place] FERROUS 00 the Medical SULFATE,) morning. Branch 325 mg (65 mg iron) tablet ascorbic 2022-0 Yes [id number] 500mg Take 1 Un ita acid, 5-17 tablet by ity of vitamin C, 00:00: mouth in [place] 500 mg 00 the Medical tablet morning. Branch aspirin 81 2022-0 Yes [id number] 81mg Take 1 U nivers mg EC 5-17 tablet by ity of tablet 00:00: mouth in [place] 00 the Medical morning. [facility] [...] directed. Brand per Insurance. ferrous 2022-0 Yes [id number] 325mg Take 1 Uni vers sulfate 5-17 tablet by ity of (IRON, 00:00: mouth in [place] FERROUS 00 the Medical SULFATE,) morning. Branch 325 mg (65 mg iron) tablet ascorbic Yes [id number] 500mg Take 1 Un ita acid, 5-17 tablet by ity of vitamin C, 00:00: mouth in [place] 500 mg 00 the Medical tablet morning. Branch aspirin 81 2022-0 Yes [id number] 81mg Take 1 U nivers mg EC 5-17 tablet by ity of tablet 00:00: mouth in [place] 00 the Medical morning. [facility] area 4 [...] directed. Brand per Insurance. ferrous 2022-0 Yes [id number] 325mg Take 1 Uni vers sulfate 5-17 tablet by ity of (IRON, 00:00: mouth in [place] FERROUS 00 the Medical SULFATE,) morning. Branch 325 mg (65 mg iron) tablet ascorbic 3-0 Yes [id number] 500mg Take 1 Un ita acid, 5-17 tablet by ity of vitamin C, 00:00: mouth in [place] 500 mg 00 the Medical tablet morning. Branch aspirin 81 2022-0 Yes [id number] 81mg Take 1 U nivers mg EC 5-17 tablet by ity of tablet 00:00: mouth in [place] 00 the Medical morning. Branch Alcohol 2022-0 Yes Apply to [facility] Swabs PadM 5-17 area 4 ity of 00:00: times a [place] 00 day to Medical check Branch blood sugar as directed. Blood Sugar 0 Yes Check Un[facility] rs Diagnostic, 5-17 blood ity of Disc Strp 00:00: sugar 4 [place] 00 times a Medical day as Branch directed. Lancets 0 Yes Check [facility] it[facility] of 00:00: sugars 4 [place] 00 times a Medical day as Branch directed. Blood-Gluco Yes Check [facility] [facility] se Meter 5-17 blood ity of (BLOOD 00:00: sugar 4 [place] GLUCOSE 00 times Medical MONITORING) daily as Bran ch Kit directed. Brand per Insurance. ferrous 2022-0 Yes [id number] 325mg Take 1 Uni vers sulfate 5-17 tablet by ity of (IRON, 00:00: mouth in [place] FERROUS 00 the Medical SULFATE,) morning. Branch 325 mg (65 mg iron) tablet ascorbic 2022-0 Yes [id number] 500mg Take 1 Un ita acid, 5-17 tablet by ity of vitamin C, 00:00: mouth in [place] 500 mg 00 the Medical tablet morning. Branch aspirin 81 2022-0 Yes [id number] 81mg Take 1 U nivers mg EC 5-17 tablet by ity of tablet 00:00: mouth in [place] 00 the Medical morning. Branch Alcohol 2022-0 Yes Apply to [facility] Swabs PadM 5-17 area 4 ity [...] directed. Brand per Insurance. ferrous 2022-0 Yes [id number] 325mg Take 1 Uni vers sulfate 5-17 tablet by ity of (IRON, 00:00: mouth in [place] FERROUS 00 the Medical SULFATE,) morning. Branch 325 mg (65 mg iron) tablet ascorbic 2022-0 Yes [id number] 500mg Take 1 Un ita acid, 5-17 tablet by ity of vitamin C, 00:00: mouth in [place] 500 mg 00 the Medical tablet morning. Branch aspirin 81 0 Yes [id number] 81mg Take 1 U nivers mg EC 5-17 tablet by ity of tablet 00:00: mouth in [place] 00 the Medical morning. Branch Alcohol Yes Apply to Univer s Swabs Pad 5-17 area 4 ity of 00:00: times a [place] 00 day to Medical check Branch blood sugar as directed. Blood Sugar Yes Check Un[facility] rs Diagnostic, 5-17 blood ity of Disc Strp 00:00: sugar 4 [place] 00 times a Medical day as Branch directed. Lancets 0 Yes Check [facility] Misc 5-17 blood ity of 00:00: sugars 4 [place] 00 times a Medical day as Branch directed. Blood-Gluco 0 Yes Check Unive rs se Meter 5-17 blood ity of (BLOOD 00:00: sugar 4 [place] GLUCOSE 00 times Medical MONITORING) daily as Bran ch Kit directed. Brand per Insurance. ferrous 2022-0 Yes [id number] 325mg Take 1 Uni vers sulfate 5-17 tablet by ity of (IRON, 00:00: mouth in [place] FERROUS 00 the Medical SULFATE,) morning. Branch 325 mg (65 mg iron) tablet ascorbic 2022-0 Yes [id number] 500mg Take 1 Un ita acid, 5-17 tablet by ity of vitamin C, 00:00: mouth in [place] 500 mg 00 the Medical tablet morning. Branch aspirin 81 2022-0 Yes [id number] 81mg Take 1 U nivers mg EC 5-17 tablet by ity of tablet 00:00: mouth in [place] 00 the Medical morning. Branch [facility] area 4 [...] directed. Brand per Insurance. ferrous 2022-0 Yes [id number] 325mg Take 1 Uni vers sulfate 5-17 tablet by ity of (IRON, 00:00: mouth in [place] FERROUS 00 the Medical SULFATE,) morning. Branch 325 mg (65 mg iron) tablet ascorbic Yes [id number] 500mg Take 1 Un ita acid, 5-17 tablet by ity of vitamin C, 00:00: mouth in [place] 500 mg 00 the Medical tablet morning. Branch aspirin 81 2022-0 Yes [id number] 81mg Take 1 U nivers mg EC 5-17 tablet by ity of tablet 00:00: mouth in [place] 00 the Medical morning. Branch [facility] area 4 [...] directed. Brand per Insurance. ferrous 2022-0 Yes [id number] 325mg Take 1 Uni vers sulfate 5-17 tablet by ity of (IRON, 00:00: mouth in [place] FERROUS 00 the Medical SULFATE,) morning. Branch 325 mg (65 mg iron) tablet ascorbic 3-0 Yes [id number] 500mg Take 1 Un ita acid, 5-17 tablet by ity of vitamin C, 00:00: mouth in [place] 500 mg 00 the Medical tablet morning. Branch aspirin 81 2022-0 Yes [id number] 81mg Take 1 U nivers mg EC 5-17 tablet by ity of tablet 00:00: mouth in [place] 00 the Medical morning. Branch Alcohol 2022-0 Yes Apply to [facility] Swabs PadM 5-17 area 4 ity of 00:00: times a [place] 00 day to Medical check Branch blood sugar as directed. Blood Sugar 0 Yes Check Unive rs Diagnostic, 5-17 blood ity of Disc Strp 00:00: sugar 4 [place] 00 times a Medical day as Branch directed. Lancets 0 Yes Check [facility] ity of 00:00: sugars 4 [place] 00 times a Medical day as Branch directed. Blood-Gluco Yes Check [facility] rs se Meter 5-17 blood ity of (BLOOD 00:00: sugar 4 [place] GLUCOSE 00 times Medical MONITORING) daily as Bran ch Kit directed. Brand per Insurance. ferrous 2022-0 Yes [id number] 325mg Take 1 Uni vers sulfate 5-17 tablet by ity of (IRON, 00:00: mouth in [place] FERROUS 00 the Medical SULFATE,) morning. Branch 325 mg (65 mg iron) tablet ascorbic 2022-0 Yes [id number] 500mg Take 1 Un ita acid, 5-17 tablet by ity of vitamin C, 00:00: mouth in [place] 500 mg 00 the Medical tablet morning. Branch aspirin 81 2022-0 Yes [id number] 81mg Take 1 U nivers mg EC 5-17 tablet by ity of tablet 00:00: mouth in [place] 00 the Medical morning. Branch Alcohol 2022-0 Yes Apply to [facility] Swabs PadM 5-17 area 4 ity [...] directed. Brand per Insurance. ferrous 2022-0 Yes [id number] 325mg Take 1 Uni vers sulfate 5-17 tablet by ity of (IRON, 00:00: mouth in [place] FERROUS 00 the Medical SULFATE,) morning. Branch 325 mg (65 mg iron) tablet ascorbic 2022-0 Yes [id number] 500mg Take 1 Un ita acid, 5-17 tablet by ity of vitamin C, 00:00: mouth in [place] 500 mg 00 the Medical tablet morning. Branch aspirin 81 0 Yes [id number] 81mg Take 1 U nivers mg EC 5-17 tablet by ity of tablet 00:00: mouth in [place] 00 the Medical morning. Branch Alcohol Yes Apply to [facility] s Swabs Pad 5-17 area 4 ity of 00:00: times a [place] 00 day to Medical check Branch blood sugar as directed. Blood Sugar Yes Check Unive rs Diagnostic, 5-17 blood ity of Disc Strp 00:00: sugar 4 [place] 00 times a Medical day as Branch directed. Lancets 0 Yes Check Univers Misc 5-17 blood ity of 00:00: sugars 4 [place] 00 times a Medical day as Branch directed. Blood-Gluco 0 Yes Check Unive rs se Meter 5-17 blood ity of (BLOOD 00:00: sugar 4 [place] GLUCOSE 00 times Medical MONITORING) daily as Bran ch Kit directed. Brand per Insurance. ferrous 2022-0 Yes [id number] 325mg Take 1 Uni vers sulfate 5-17 tablet by ity of (IRON, 00:00: mouth in [place] FERROUS 00 the Medical SULFATE,) morning. Branch 325 mg (65 mg iron) tablet ascorbic 2022-0 Yes [id number] 500mg Take 1 Un ita acid, 5-17 tablet by ity of vitamin C, 00:00: mouth in [place] 500 mg 00 the Medical tablet morning. Branch aspirin 81 2022-0 Yes [id number] 81mg Take 1 U nivers mg EC 5-17 tablet by ity of tablet 00:00: mouth in [place] 00 the Medical morning. Branch [facility] area 4 [...] directed. Brand per Insurance. ferrous 2022-0 Yes [id number] 325mg Take 1 Uni vers sulfate 5-17 tablet by ity of (IRON, 00:00: mouth in [place] FERROUS 00 the Medical SULFATE,) morning. Branch 325 mg (65 mg iron) tablet ascorbic Yes [id number] 500mg Take 1 Un ita acid, 5-17 tablet by ity of vitamin C, 00:00: mouth in [place] 500 mg 00 the Medical tablet morning. Branch aspirin 81 2022-0 Yes [id number] 81mg Take 1 U nivers mg EC 5-17 tablet by ity of tablet 00:00: mouth in [place] 00 the Medical morning. Branch [facility] 5-17 area 4 [...] directed. Brand per Insurance. ferrous 2022-0 Yes [id number] 325mg Take 1 Uni vers sulfate 5-17 tablet by ity of (IRON, 00:00: mouth in [place] FERROUS 00 the Medical SULFATE,) morning. Branch 325 mg (65 mg iron) tablet ascorbic 3-0 Yes [id number] 500mg Take 1 Un ita acid, 5-17 tablet by ity of vitamin C, 00:00: mouth in [place] 500 mg 00 the Medical tablet morning. Branch aspirin 81 2022-0 Yes [id number] 81mg Take 1 U nivers mg EC 5-17 tablet by ity of tablet 00:00: mouth in [place] 00 the Medical morning. Branch Alcohol 2022-0 Yes Apply to [facility] Swabs PadM 5-17 area 4 ity of 00:00: times a [place] 00 day to Medical check Branch blood sugar as directed. Blood Sugar 0 Yes Check Unive rs Diagnostic, 5-17 blood ity of Disc Strp 00:00: sugar 4 [place] 00 times a Medical day as Branch directed. Lancets 0 Yes Check [facility] ity of 00:00: sugars 4 [place] 00 times a Medical day as Branch directed. Blood-Gluco Yes Check [facility] se Meter 5-17 blood ity of (BLOOD 00:00: sugar 4 [place] GLUCOSE 00 times Medical MONITORING) daily as Bran ch Kit directed. Brand per Insurance. ferrous 2022-0 Yes [id number] 325mg Take 1 Uni vers sulfate 5-17 tablet by ity of (IRON, 00:00: mouth in [place] FERROUS 00 the Medical SULFATE,) morning. Branch 325 mg (65 mg iron) tablet ascorbic 2022-0 Yes [id number] 500mg Take 1 Un ita acid, 5-17 tablet by ity of vitamin C, 00:00: mouth in [place] 500 mg 00 the Medical tablet morning. Branch aspirin 81 2022-0 Yes [id number] 81mg Take 1 U nivers mg EC 5-17 tablet by ity of tablet 00:00: mouth in [place] 00 the Medical morning. Branch Alcohol 2022-0 Yes Apply to [facility] Swabs PadM 5-17 area 4 ity [...] directed. Brand per Insurance. ferrous 2022-0 Yes [id number] 325mg Take 1 Uni vers sulfate 5-17 tablet by ity of (IRON, 00:00: mouth in [place] FERROUS 00 the Medical SULFATE,) morning. Branch 325 mg (65 mg iron) tablet ascorbic 2022-0 Yes [id number] 500mg Take 1 Un ita acid, 5-17 tablet by ity of vitamin C, 00:00: mouth in [place] 500 mg 00 the Medical tablet morning. Branch aspirin 81 0 Yes [id number] 81mg Take 1 U nivers mg EC 5-17 tablet by ity of tablet 00:00: mouth in [place] 00 the Medical morning. Branch Alcohol Yes Apply to [facility] s Swabs Pad 5-17 area 4 ity of 00:00: times a [place] 00 day to Medical check Branch blood sugar as directed. Blood Sugar Yes Check Un[facility] rs Diagnostic, 5-17 blood ity of Disc Strp 00:00: sugar 4 [place] 00 times a Medical day as Branch directed. Lancets 0 Yes Check [facility] Misc 5-17 blood ity of 00:00: sugars 4 [place] 00 times a Medical day as Branch directed. Blood-Gluco 0 Yes Check [facility] rs se Meter 5-17 blood ity of (BLOOD 00:00: sugar 4 [place] GLUCOSE 00 times Medical MONITORING) daily as Bran ch Kit directed. Brand per Insurance. ferrous 2022-0 Yes [id number] 325mg Take 1 Uni vers sulfate 5-17 tablet by ity of (IRON, 00:00: mouth in [place] FERROUS 00 the Medical SULFATE,) morning. Branch 325 mg (65 mg iron) tablet ascorbic 2022-0 Yes [id number] 500mg Take 1 Un ita acid, 5-17 tablet by ity of vitamin C, 00:00: mouth in [place] 500 mg 00 the Medical tablet morning. Branch aspirin 81 2022-0 Yes [id number] 81mg Take 1 U nivers mg EC 5-17 tablet by ity of tablet 00:00: mouth in [place] 00 the Medical morning. Branch [facility] area 4 [...] directed. Brand per Insurance. ferrous 2022-0 Yes [id number] 325mg Take 1 Uni vers sulfate 5-17 tablet by ity of (IRON, 00:00: mouth in [place] FERROUS 00 the Medical SULFATE,) morning. Branch 325 mg (65 mg iron) tablet ascorbic Yes [id number] 500mg Take 1 Un ita acid, 5-17 tablet by ity of vitamin C, 00:00: mouth in [place] 500 mg 00 the Medical tablet morning. Branch aspirin 81 2022-0 Yes [id number] 81mg Take 1 U nivers mg EC 5-17 tablet by ity of tablet 00:00: mouth in [place] 00 the Medical morning. Branch [facility] 5-17 area 4 [...] directed. Brand per Insurance. ferrous 2022-0 Yes [id number] 325mg Take 1 Uni vers sulfate 5-17 tablet by ity of (IRON, 00:00: mouth in [place] FERROUS 00 the Medical SULFATE,) morning. Branch 325 mg (65 mg iron) tablet ascorbic 3-0 Yes [id number] 500mg Take 1 Un ita acid, 5-17 tablet by ity of vitamin C, 00:00: mouth in [place] 500 mg 00 the Medical tablet morning. Branch aspirin 81 2022-0 Yes [id number] 81mg Take 1 U nivers mg EC 5-17 tablet by ity of tablet 00:00: mouth in [place] 00 the Medical morning. Branch Alcohol 2022-0 Yes Apply to [facility] Swabs PadM 5-17 area 4 ity of 00:00: times a [place] 00 day to Medical check Branch blood sugar as directed. Blood Sugar 0 Yes Check Un[facility] rs Diagnostic, 5-17 blood ity of Disc Strp 00:00: sugar 4 [place] 00 times a Medical day as Branch directed. Lancets 0 Yes Check [facility] it[facility] of 00:00: sugars 4 [place] 00 times a Medical day as Branch directed. Blood-Gluco Yes Check [facility] [facility] se Meter 5-17 blood ity of (BLOOD 00:00: sugar 4 [place] GLUCOSE 00 times Medical MONITORING) daily as Bran ch Kit directed. Brand per Insurance. ferrous 2022-0 Yes [id number] 325mg Take 1 Uni vers sulfate 5-17 tablet by ity of (IRON, 00:00: mouth in [place] FERROUS 00 the Medical SULFATE,) morning. Branch 325 mg (65 mg iron) tablet ascorbic 2022-0 Yes [id number] 500mg Take 1 Un ita acid, 5-17 tablet by ity of vitamin C, 00:00: mouth in [place] 500 mg 00 the Medical tablet morning. Branch aspirin 81 2022-0 Yes [id number] 81mg Take 1 U nivers mg EC 5-17 tablet by ity of tablet 00:00: mouth in [place] 00 the Medical morning. Branch Alcohol 2022-0 Yes Apply to [facility] Swabs PadM 5-17 area 4 ity [...] directed. Brand per Insurance. ferrous 2022-0 Yes [id number] 325mg Take 1 Uni vers sulfate 5-17 tablet by ity of (IRON, 00:00: mouth in [place] FERROUS 00 the Medical SULFATE,) morning. Branch 325 mg (65 mg iron) tablet ascorbic 2022-0 Yes [id number] 500mg Take 1 Un ita acid, 5-17 tablet by ity of vitamin C, 00:00: mouth in [place] 500 mg 00 the Medical tablet morning. Branch aspirin 81 0 Yes [id number] 81mg Take 1 U nivers mg EC 5-17 tablet by ity of tablet 00:00: mouth in [place] 00 the Medical morning. Branch Alcohol Yes Apply to [facility] s Swabs Pad 5-17 area 4 ity of 00:00: times a [place] 00 day to Medical check Branch blood sugar as directed. Blood Sugar Yes Check [facility] rs Diagnostic, 5-17 blood ity of Disc Strp 00:00: sugar 4 [place] 00 times a Medical day as Branch directed. Lancets 0 Yes Check [facility] Misc 5-17 blood ity of 00:00: sugars 4 [place] 00 times a Medical day as Branch directed. Blood-Gluco 0 Yes Check [facility] rs se Meter 5-17 blood ity of (BLOOD 00:00: sugar 4 [place] GLUCOSE 00 times Medical MONITORING) daily as Bran ch Kit directed. Brand per Insurance. ferrous 2022-0 Yes [id number] 325mg Take 1 Uni vers sulfate 5-17 tablet by ity of (IRON, 00:00: mouth in [place] FERROUS 00 the Medical SULFATE,) morning. Branch 325 mg (65 mg iron) tablet ascorbic 2022-0 Yes [id number] 500mg Take 1 Un ita acid, 5-17 tablet by ity of vitamin C, 00:00: mouth in [place] 500 mg 00 the Medical tablet morning. Branch aspirin 81 2022-0 Yes [id number] 81mg Take 1 U nivers mg EC 5-17 tablet by ity of tablet 00:00: mouth in [place] 00 the Medical morning. Branch [facility] area 4 [...] directed. Brand per Insurance. ferrous 2022-0 Yes [id number] 325mg Take 1 Uni vers sulfate 5-17 tablet by ity of (IRON, 00:00: mouth in [place] FERROUS 00 the Medical SULFATE,) morning. Branch 325 mg (65 mg iron) tablet ascorbic Yes [id number] 500mg Take 1 Un ita acid, 5-17 tablet by ity of vitamin C, 00:00: mouth in [place] 500 mg 00 the Medical tablet morning. Branch aspirin 81 2022-0 Yes [id number] 81mg Take 1 U nivers mg EC 5-17 tablet by ity of tablet 00:00: mouth in [place] 00 the Medical morning. Branch [facility] [...] directed. Brand per Insurance. ferrous 2022-0 Yes [id number] 325mg Take 1 Uni vers sulfate 5-17 tablet by ity of (IRON, 00:00: mouth in [place] FERROUS 00 the Medical SULFATE,) morning. Branch 325 mg (65 mg iron) tablet ascorbic 3-0 Yes [id number] 500mg Take 1 Un ita acid, 5-17 tablet by ity of vitamin C, 00:00: mouth in [place] 500 mg 00 the Medical tablet morning. Branch aspirin 81 2022-0 Yes [id number] 81mg Take 1 U nivers mg EC 5-17 tablet by ity of tablet 00:00: mouth in [place] 00 the Medical morning. Branch Alcohol 2022-0 Yes Apply to [facility] Swabs PadM 5-17 area 4 ity of 00:00: times a [place] 00 day to Medical check Branch blood sugar as directed. Blood Sugar 0 Yes Check [facility] rs Diagnostic, 5-17 blood ity of Disc Strp 00:00: sugar 4 [place] 00 times a Medical day as Branch directed. Lancets 0 Yes [facility] 00:00: sugars 4 [place] 00 times a Medical day as Branch directed. Blood-Gluco Yes Check [facility] se Meter 5-17 blood ity of (BLOOD 00:00: sugar 4 [place] GLUCOSE 00 times Medical MONITORING) daily as Bran ch Kit directed. Brand per Insurance. ferrous 2022-0 Yes [id number] 325mg Take 1 Uni vers sulfate 5-17 tablet by ity of (IRON, 00:00: mouth in [place] FERROUS 00 the Medical SULFATE,) morning. Branch 325 mg (65 mg iron) tablet ascorbic 2022-0 Yes [id number] 500mg Take 1 Un ita acid, 5-17 tablet by ity of vitamin C, 00:00: mouth in [place] 500 mg 00 the Medical tablet morning. Branch aspirin 81 2022-0 Yes [id number] 81mg Take 1 U nivers mg EC 5-17 tablet by ity of tablet 00:00: mouth in [place] 00 the Medical morning. Branch Alcohol 2022-0 Yes Apply to [facility] Swabs PadM 5-17 area 4 ity [...] directed. Brand per Insurance. ferrous 2022-0 Yes [id number] 325mg Take 1 Uni vers sulfate 5-17 tablet by ity of (IRON, 00:00: mouth in [place] FERROUS 00 the Medical SULFATE,) morning. Branch 325 mg (65 mg iron) tablet ascorbic 2022-0 Yes [id number] 500mg Take 1 Un ita acid, 5-17 tablet by ity of vitamin C, 00:00: mouth in [place] 500 mg 00 the Medical tablet morning. Branch aspirin 81 0 Yes [id number] 81mg Take 1 U nivers mg EC 5-17 tablet by ity of tablet 00:00: mouth in [place] 00 the Medical morning. Branch Alcohol Yes Apply to Un[facility] s Swabs Pad 5-17 area 4 ity of 00:00: times a [place] 00 day to Medical check Branch blood sugar as directed. Blood Sugar Yes Check [facility] rs Diagnostic, 5-17 blood ity of Disc Strp 00:00: sugar 4 [place] 00 times a Medical day as Branch directed. Lancets 0 Yes Check [facility] Misc 5-17 blood ity of 00:00: sugars 4 [place] 00 times a Medical day as Branch directed. Blood-Gluco 0 Yes Check Un[facility] rs se Meter 5-17 blood ity of (BLOOD 00:00: sugar 4 [place] GLUCOSE 00 times Medical MONITORING) daily as Bran ch Kit directed. Brand per Insurance. ferrous 2022-0 Yes [id number] 325mg Take 1 Uni vers sulfate 5-17 tablet by ity of (IRON, 00:00: mouth in [place] FERROUS 00 the Medical SULFATE,) morning. Branch 325 mg (65 mg iron) tablet ascorbic 2022-0 Yes [id number] 500mg Take 1 Un ita acid, 5-17 tablet by ity of vitamin C, 00:00: mouth in [place] 500 mg 00 the Medical tablet morning. Branch aspirin 81 2022-0 Yes [id number] 81mg Take 1 U nivers mg EC 5-17 tablet by ity of tablet 00:00: mouth in [place] 00 the Medical morning. Branch [facility] area 4 [...] directed. Brand per Insurance. ferrous 2022-0 Yes [id number] 325mg Take 1 Uni vers sulfate 5-17 tablet by ity of (IRON, 00:00: mouth in [place] FERROUS 00 the Medical SULFATE,) morning. Branch 325 mg (65 mg iron) tablet ascorbic Yes [id number] 500mg Take 1 Un ita acid, 5-17 tablet by ity of vitamin C, 00:00: mouth in [place] 500 mg 00 the Medical tablet morning. Branch aspirin 81 2022-0 Yes [id number] 81mg Take 1 U nivers mg EC 5-17 tablet by ity of tablet 00:00: mouth in [place] 00 the Medical morning. Branch [facility] area 4 [...] directed. Brand per Insurance. ferrous 2022-0 Yes [id number] 325mg Take 1 Uni vers sulfate 5-17 tablet by ity of (IRON, 00:00: mouth in [place] FERROUS 00 the Medical SULFATE,) morning. Branch 325 mg (65 mg iron) tablet ascorbic 3-0 Yes [id number] 500mg Take 1 Un ita acid, 5-17 tablet by ity of vitamin C, 00:00: mouth in [place] 500 mg 00 the Medical tablet morning. Branch aspirin 81 2022-0 Yes [id number] 81mg Take 1 U nivers mg EC 5-17 tablet by ity of tablet 00:00: mouth in [place] 00 the Medical morning. Branch Alcohol 2022-0 Yes Apply to [facility] Swabs PadM 5-17 area 4 ity of 00:00: times a [place] 00 day to Medical check Branch blood sugar as directed. Blood Sugar 0 Yes Check [facility] rs Diagnostic, 5-17 blood ity of Disc Strp 00:00: sugar 4 [place] 00 times a Medical day as Branch directed. Lancets 0 Yes [facility] blood ity of 00:00: sugars 4 [place] 00 times a Medical day as Branch directed. Blood-Gluco Yes Check [facility] se Meter 5-17 blood ity of (BLOOD 00:00: sugar 4 [place] GLUCOSE 00 times Medical MONITORING) daily as Bran ch Kit directed. Brand per Insurance. ferrous 2022-0 Yes [id number] 325mg Take 1 Uni vers sulfate 5-17 tablet by ity of (IRON, 00:00: mouth in [place] FERROUS 00 the Medical SULFATE,) morning. Branch 325 mg (65 mg iron) tablet ascorbic 2022-0 Yes [id number] 500mg Take 1 Un ita acid, 5-17 tablet by ity of vitamin C, 00:00: mouth in [place] 500 mg 00 the Medical tablet morning. Branch aspirin 81 2022-0 Yes [id number] 81mg Take 1 U nivers mg EC 5-17 tablet by ity of tablet 00:00: mouth in [place] 00 the Medical morning. Branch Alcohol 2022-0 Yes Apply to [facility] Swabs PadM 5-17 area 4 ity [...] directed. Brand per Insurance. ferrous 2022-0 Yes [id number] 325mg Take 1 Uni vers sulfate 5-17 tablet by ity of (IRON, 00:00: mouth in [place] FERROUS 00 the Medical SULFATE,) morning. Branch 325 mg (65 mg iron) tablet ascorbic 2022-0 Yes [id number] 500mg Take 1 Un ita acid, 5-17 tablet by ity of vitamin C, 00:00: mouth in [place] 500 mg 00 the Medical tablet morning. Branch aspirin 81 0 Yes [id number] 81mg Take 1 U nivers mg EC 5-17 tablet by ity of tablet 00:00: mouth in [place] 00 the Medical morning. Branch Alcohol Yes Apply to [facility] s Swabs Pad 5-17 area 4 ity of 00:00: times a [place] 00 day to Medical check Branch blood sugar as directed. Blood Sugar Yes Check [facility] rs Diagnostic, 5-17 blood ity of Disc Strp 00:00: sugar 4 [place] 00 times a Medical day as Branch directed. Lancets 0 Yes Check [facility] Misc 5-17 blood ity of 00:00: sugars 4 [place] 00 times a Medical day as Branch directed. Blood-Gluco 0 Yes Check Un[facility] rs se Meter 5-17 blood ity of (BLOOD 00:00: sugar 4 [place] GLUCOSE 00 times Medical MONITORING) daily as Bran ch Kit directed. Brand per Insurance. ferrous 2022-0 Yes [id number] 325mg Take 1 Uni vers sulfate 5-17 tablet by ity of (IRON, 00:00: mouth in [place] FERROUS 00 the Medical SULFATE,) morning. Branch 325 mg (65 mg iron) tablet ascorbic 2022-0 Yes [id number] 500mg Take 1 Un ita acid, 5-17 tablet by ity of vitamin C, 00:00: mouth in [place] 500 mg 00 the Medical tablet morning. Branch aspirin 81 2022-0 Yes [id number] 81mg Take 1 U nivers mg EC 5-17 tablet by ity of tablet 00:00: mouth in [place] 00 the Medical morning. Branch [facility] area 4 [...] directed. Brand per Insurance. ferrous 2022-0 Yes [id number] 325mg Take 1 Uni vers sulfate 5-17 tablet by ity of (IRON, 00:00: mouth in [place] FERROUS 00 the Medical SULFATE,) morning. Branch 325 mg (65 mg iron) tablet ascorbic Yes [id number] 500mg Take 1 Un ita acid, 5-17 tablet by ity of vitamin C, 00:00: mouth in [place] 500 mg 00 the Medical tablet morning. Branch aspirin 81 2022-0 Yes [id number] 81mg Take 1 U nivers mg EC 5-17 tablet by ity of tablet 00:00: mouth in [place] 00 the Medical morning. Branch Alcohol Yes [facility] area 4 [...] directed. Brand per Insurance. ferrous 2022-0 Yes [id number] 325mg Take 1 Uni vers sulfate 5-17 tablet by ity of (IRON, 00:00: mouth in [place] FERROUS 00 the Medical SULFATE,) morning. Branch 325 mg (65 mg iron) tablet ascorbic Yes [id number] 500mg Take 1 Un ita acid, 5-17 tablet by ity of vitamin C, 00:00: mouth in [place] 500 mg 00 the Medical tablet morning. Branch aspirin 81 0 Yes [id number] 81mg Take 1 U nivers mg EC - tablet by ity of tablet 00:00: mouth in [place] 00 the Medical morning. Branch Alcohol [address] [facility] 07-11 area 4 ity of 00:00: times a [place] 00 day to Medical check Branch blood sugar as directed. ascorbic 2022- No [id number] 500mg Take 1 U nivers acid, 07-11 tablet by ity of vitamin C, 00:00: 00:00 mouth in [place] 500 mg 00 :00 the Medical tablet morning. Branch aspirin 81 2022- No [id number] 81mg Take 1 Univers mg EC 07-11 [...] blood ity of 00:00: 00:00 sugars 4 [place] 00 :00 times a Medical day as Branch directed. Blood-Gluco 2022- No Check Univ ers se Meter 07-11 blood ity of (BLOOD 00:00: 00:00 sugar 4 [place] GLUCOSE 00 :00 times Medical MONITORING) daily as Bran ch Kit directed. Brand per Insurance. ferrous 2022-0 2022- No [id number] 325mg Take 1 Un ita sulfate 07-11 tablet by ity of (IRON, 00:00: 00:00 mouth in [place] FERROUS 00 :00 the Medical SULFATE,) morning. Branch 325 mg (65 mg iron) tablet ascorbic 2022- No [id number] 500mg Take 1 U nivers acid, 07-11 tablet by ity of vitamin C, 00:00: 00:00 mouth in [place] 500 mg 00 :00 the Medical tablet morning. Branch aspirin 81 0 2022- No [id number] 81mg Take 1 [facility] mg EC 07-11 [...] of Disc Strp 00:00: 00:00 [facility] day [...] directed. Brand per Insurance. ferrous 2022- No [id number] 325mg Take 1 Un ita sulfate 07-11 tablet by ity of (IRON, 00:00: 00:00 mouth in [place] FERROUS 00 :00 the Medical SULFATE,) morning. Branch 325 mg (65 mg iron) tablet ferrous Yes [id number] 325mg Take 1 Uni vers sulfate 5-15 tablet by ity of (IRON, 00:00: mouth in [place] FERROUS 00 the Medical SULFATE,) morning. Branch 325 mg (65 mg iron) tablet aspirin 81 2022-0 Yes [id number] 81mg Take 1 U nivers mg EC -15 tablet by ity of tablet 00:00: mouth in [place] 00 the Medical morning. Branch ascorbic 2022-0 Yes [id number] 500mg Take 1 Un ita acid, 5-15 [...] Kit directed. Brand per Insurance. Blood Sugar 2022-0 Yes Check [facility] rs Diagnostic, 5-15 blood ity of Disc Strp 00:00: sugar 4 [place] 00 times a Medical day as Branch directed. Lancets 0 Yes Check [facility] Misc 5-15 blood ity of 00:00: sugars 4 [place] 00 times a Medical day as Branch directed. ferrous 2022-0 Yes [id number] 325mg Take 1 Uni vers sulfate 5-15 tablet by ity of (IRON, 00:00: mouth in [place] FERROUS 00 the Medical SULFATE,) morning. Branch 325 mg (65 mg iron) tablet aspirin 81 2022-0 Yes [id number] 81mg Take 1 U nivers mg EC 5-15 tablet by ity of tablet 00:00: mouth in [place] 00 the Medical morning. Branch ascorbic 2022-0 Yes [id number] 500mg Take 1 Un ita acid, 5-15 tablet by ity of vitamin C, 00:00: mouth in [facility] as 500 mg 00 the Medical tablet morning. Branch Alcohol 2022-0 Yes Apply to Univer s Swabs PadM 5-15 area 4 ity of 00:00: times a [place] 00 day to Medical check Branch blood sugar as directed. Blood-Gluco 2022-0 Yes Check Unive rs se Meter 5-15 [...] day as Branch directed. ferrous 2022-0 Yes [id number] 325mg Take 1 Uni vers sulfate 5-15 tablet by ity of (IRON, 00:00: mouth in [place] FERROUS 00 the Medical SULFATE,) morning. Branch 325 mg (65 mg iron) tablet aspirin 81 2022-0 Yes [id number] 81mg Take 1 U nivers mg EC 5-15 tablet by ity of tablet 00:00: mouth in [place] 00 the Medical morning. Branch ascorbic 2022-0 Yes [id number] 500mg Take 1 Un ita acid, 5-15 tablet by ity of vitamin C, 00:00: mouth in [place] 500 mg 00 the Medical tablet morning. Branch Alcohol 0 Yes Apply to [facility] Swabs PadM 5-15 area 4 ity of 00:00: times a [place] 00 day to Medical check Branch blood sugar as directed. Blood-Gluco 0 Yes Check [facility] se Meter 5-15 blood ity of (BLOOD 00:00: sugar 4 [place] GLUCOSE 00 times Medical MONITORING) daily as Bran ch Kit directed. Brand per Insurance. Blood Sugar 0 Yes Check [facility] rs Diagnostic, 5-15 blood ity of Disc Strp 00:00: sugar 4 [place] 00 times a Medical day as Branch directed. Lancets 0 Yes Check [facility] Misc 5-15 blood ity of 00:00: sugars 4 [place] 00 times a Medical day as Branch directed. ferrous 2022-0 2022- No [id number] 325mg Take 1 Un ita sulfate 5-15 05-17 tablet by ity of (IRON, 00:00: 00:00 mouth in [place] FERROUS 00 :00 the Medical SULFATE,) morning. Branch 325 mg (65 mg iron) tablet aspirin 81 2022-0 202- No [id number] 81mg Take 1 [facility] mg EC 5-15 05-17 tablet by ity of tablet 00:00: 00:00 mouth in [place] 00 :00 the Medical morning. Branch ascorbic 2022-0 202- No [id number] 500mg Take 1 U nivers acid, 5-15 05-17 tablet by ity of vitamin C, 00:00: 00:00 mouth in [place] 500 mg 00 :00 the Medical tablet morning. Branch Alcohol 2022-0 2022- No Apply to Un[facility] rs Swabs PadM 07-09 area 4 ity of 00:00: 00:00 times a [place] 00 :00 day to Medical check Branch blood sugar as directed. Blood-Gluco No Check Univ ers se Meter 07-09 [...] Medical day as Branch directed. NaCl 0.9% No 1000mL at 999 Uni vers (NS) bolus 05-03 mL/hr, ity of infusion 00:00: 01:45 1,000 mL, [place] 1,000 mL 00 :00 IV Medical Infusion, Branch ONCE, 1 dose, On Sat05/02/22 at 1800, [facility] proMETHazin No 25mg 25 mg, IV Univers e 05-02 Piggyback, ity of (PHENERGAN) 23:00: 23:05 ONCE, 1 [place] 25 mg in 00 :00 dose, On Medical NaCl 0.9% Sat05/02/22 Bran ch (NS) 50 mL at 1700, IV [facility] piggyback cephALEXin 2022- No [id number] 500mg Take 1 Univers (KEFLEX) 05-02 capsule by ity of 500 mg 00:00: 04:59 mouth in [place] capsule 00 :00 the Medical morning Branch and 1 capsule in the evening. Do all this for 7 days. acetaminoph 2021-02 No 1{tbl} 1 tablet, Univers en-codeine 03-01 Oral, ONCE it y of (TYLENOL 10:15: 09:41 NOW, 1 [place] #3) 300-30 00 :00 dose, On Medic al mg tablet 1 Sat Branch tablet 12/30/21 at 0515, [facility] dexamethaso 2021-02- No 10mg 10 mg, Uni vers ne sod phos 03-01 Intramuscu i ty of PF 09:30: 09:41 lar, ONCE, [place] injection 00 :00 1 dose, On Medi silver 10 mg Sat Branch 12/30/21 at 0430, 1 mL benzonatate 2021-02 Yes [id number] 100mg Take 1 [facility] 100 mg 1-05 capsule by ity of capsule 00:00: mouth [place] (three) Medical times Branch daily as needed for Cough. benzonatate 2021-02 Yes [id number] 100mg Take 1 [facility] 100 mg 1-05 capsule by ity of capsule 00:00: mouth [place] (three) Medical times Branch daily as needed for Cough. benzonatate 2021-02 Yes [id number] 100mg Take 1 [facility] 100 mg 1-05 capsule by ity of capsule 00:00: mouth [place] (three) Medical times Branch daily as needed for Cough. benzonatate 2021-02 Yes [id number] 100mg Take 1 [facility] 100 mg 1-05 capsule by ity of capsule 00:00: mouth [place] (three) Medical times Branch daily as needed for Cough. benzonatate 2021-02 Yes [id number] 100mg Take 1 [facility] 100 mg 1-05 capsule by ity of capsule 00:00: mouth [place] (three) Medical times Branch daily as needed for Cough. benzonatate 2021-02 Yes [id number] 100mg Take 1 [facility] 100 mg 1-05 capsule by ity of capsule 00:00: mouth [place] (three) Medical times Branch daily as needed for Cough. benzonatate 2021-02 Yes [id number] 100mg Take 1 [facility] 100 mg 1-05 capsule by ity of capsule 00:00: mouth [place] (three) Medical times Branch daily as needed for Cough. benzonatate 2021-02 Yes [id number] 100mg Take 1 [facility] 100 mg 1-05 capsule by ity of capsule 00:00: mouth [place] (three) Medical times Branch daily as needed for Cough. benzonatate 2021-02 Yes [id number] 100mg Take 1 [facility] 100 mg 1-05 capsule by ity of capsule 00:00: mouth (three) Medical times Branch daily as needed for Cough. benzonatate 2021-02 Yes [id number] 100mg Take 1 [facility] 100 mg 1-05 capsule by ity of capsule 00:00: mouth (three) Medical times Branch daily as needed for Cough. benzonatate 2021-02 Yes [id number] 100mg Take 1 [facility] 100 mg 1-05 capsule by ity of capsule 00:00: mouth (three) Medical times Branch daily as needed for Cough. benzonatate 2021-02 Yes [id number] 100mg Take 1 [facility] 100 mg 1-05 capsule by ity of capsule 00:00: mouth (three) Medical times Branch daily as needed for Cough. benzonatate 2021-02 Yes [id number] 100mg Take 1 [facility] 100 mg 1-05 capsule by ity of capsule 00:00: mouth (three) Medical times Branch daily as needed for Cough. benzonatate 2021-02 Yes [id number] 100mg Take 1 [facility] 100 mg 1-05 capsule by ity of capsule 00:00: mouth (three) Medical times Branch daily as needed for Cough. benzonatate 2021-02 Yes [id number] 100mg Take 1 [facility] 100 mg 1-05 capsule by ity of capsule 00:00: mouth (three) Medical times Branch daily as needed for Cough. benzonatate 2021-02 Yes [id number] 100mg Take 1 [facility] 100 mg 1-05 capsule by ity of capsule 00:00: mouth (three) Medical times Branch daily as needed for Cough. benzonatate 2021-02 Yes [id number] 100mg Take 1 [facility] 100 mg 1-05 capsule by ity of capsule 00:00: mouth (three) Medical times Branch daily as needed for Cough. benzonatate 2021-02 Yes [id number] 100mg Take 1 [facility] 100 mg 1-05 capsule by ity of capsule 00:00: mouth (three) Medical times Branch daily as needed for Cough. benzonatate 2021-02 Yes [id number] 100mg Take 1 [facility] 100 mg 1-05 capsule by ity of capsule 00:00: mouth (three) Medical times Branch daily as needed for Cough. benzonatate 2021-02 Yes [id number] 100mg Take 1 [facility] 100 mg 1-05 capsule by ity of capsule 00:00: mouth 3 (three) Medical times Branch daily as needed for Cough. benzonatate 2021-02 Yes [id number] 100mg Take 1 [facility] 100 mg 1-05 capsule by ity of capsule 00:00: mouth 3 (three) Medical times Branch daily as needed for Cough. benzonatate 2021-02 Yes [id number] 100mg Take 1 [facility] 100 mg 1-05 capsule by ity of capsule 00:00: mouth 3 (three) Medical times Branch daily as needed for Cough. benzonatate 2021-02 Yes [id number] 100mg Take 1 [facility] 100 mg 1-05 capsule by ity of capsule 00:00: mouth (three) Medical times Branch daily as needed for Cough. benzonatate 2021-02 Yes [id number] 100mg Take 1 [facility] 100 mg 1-05 capsule by ity of capsule 00:00: mouth (three) Medical times Branch daily as needed for Cough. benzonatate 2021-02 Yes [id number] 100mg Take 1 [facility] 100 mg 1-05 capsule by ity of capsule 00:00: mouth (three) Medical times Branch daily as needed for Cough. benzonatate 2021-02 Yes [id number] 100mg Take 1 [facility] 100 mg 1-05 capsule by ity of capsule 00:00: mouth (three) Medical times Branch daily as needed for Cough. benzonatate 2021-02 Yes [id number] 100mg Take 1 [facility] 100 mg 1-05 capsule by ity of capsule 00:00: mouth (three) Medical times Branch daily as needed for Cough. benzonatate 2021-02 Yes [id number] 100mg Take 1 [facility] 100 mg 1-05 capsule by ity of capsule 00:00: mouth (three) Medical times Branch daily as needed for Cough. benzonatate 2021-02 Yes [id number] 100mg Take 1 [facility] 100 mg 1-05 capsule by ity of capsule 00:00: mouth 3 (three) Medical times Branch daily as needed for Cough. benzonatate 2021-02 Yes [id number] 100mg Take 1 [facility] 100 mg 1-05 capsule by ity of capsule 00:00: mouth (three) Medical times Branch daily as needed for Cough. benzonatate 2021-02 Yes [id number] 100mg Take 1 [facility] 100 mg 1-05 capsule by ity of capsule 00:00: mouth (three) Medical times Branch daily as needed for Cough. benzonatate 2021-02 Yes [id number] 100mg Take 1 [facility] 100 mg 1-05 capsule by ity of capsule 00:00: mouth (three) Medical times Branch daily as needed for Cough. benzonatate 2021-02 Yes [id number] 100mg Take 1 [facility] 100 mg 1-05 capsule by ity of capsule 00:00: mouth (three) Medical times Branch daily as needed for Cough. benzonatate 2021-02 Yes [id number] 100mg Take 1 [facility] 100 mg 1-05 capsule by ity of capsule 00:00: mouth (three) Medical times Branch daily as needed for Cough. benzonatate 2021-02 Yes [id number] 100mg Take 1 [facility] 100 mg 1-05 capsule by ity of capsule 00:00: mouth (three) Medical times Branch daily as needed for Cough. benzonatate 2021-02 Yes [id number] 100mg Take 1 [facility] 100 mg 1-05 capsule by ity of capsule 00:00: mouth (three) Medical times Branch daily as needed for Cough. benzonatate 2021-02 Yes [id number] 100mg Take 1 [facility] 100 mg 1-05 capsule by ity of capsule 00:00: mouth (three) Medical times Branch daily as needed for Cough. benzonatate 2021-02 Yes [id number] 100mg Take 1 [facility] 100 mg 1-05 capsule by ity of capsule 00:00: mouth (three) Medical times Branch daily as needed for Cough. benzonatate 2021-02 Yes [id number] 100mg Take 1 [facility] 100 mg 1-05 capsule by ity of capsule 00:00: mouth (three) Medical times Branch daily as needed for Cough. benzonatate 2021-02 Yes [id number] 100mg Take 1 [facility] 100 mg 1-05 capsule by ity of capsule 00:00: mouth (three) Medical times Branch daily as needed for Cough. benzonatate 2021-02 Yes [id number] 100mg Take 1 [facility] 100 mg 1-05 capsule by ity of capsule 00:00: mouth 3 (three) Medical times Branch daily as needed for Cough. benzonatate 2021-02 Yes [id number] 100mg Take 1 [facility] 100 mg 1-05 capsule by ity of capsule 00:00: mouth 3 (three) Medical times Branch daily as needed for Cough. benzonatate 2021-02 Yes [id number] 100mg Take 1 [facility] 100 mg 1-05 capsule by ity of capsule 00:00: mouth 3 (three) Medical times Branch daily as needed for Cough. benzonatate 2021-02 Yes [id number] 100mg Take 1 [facility] 100 mg 1-05 capsule by ity of capsule 00:00: mouth (three) Medical times Branch daily as needed for Cough. benzonatate 2021-02 Yes [id number] 100mg Take 1 [facility] 100 mg 1-05 capsule by ity of capsule 00:00: mouth (three) Medical times Branch daily as needed for Cough. benzonatate 2021-02 Yes [id number] 100mg Take 1 [facility] 100 mg 1-05 capsule by ity of capsule 00:00: mouth (three) Medical times Branch daily as needed for Cough. benzonatate 2021-02 Yes [id number] 100mg Take 1 [facility] 100 mg 1-05 capsule by ity of capsule 00:00: mouth (three) Medical times Branch daily as needed for Cough. benzonatate 2021-02 Yes [id number] 100mg Take 1 [facility] 100 mg 1-05 capsule by ity of capsule 00:00: mouth (three) Medical times Branch daily as needed for Cough. benzonatate 2021-02 Yes [id number] 100mg Take 1 [facility] 100 mg 1-05 capsule by ity of capsule 00:00: mouth (three) Medical times Branch daily as needed for Cough. benzonatate 2021-02 Yes [id number] 100mg Take 1 [facility] 100 mg 1-05 capsule by ity of capsule 00:00: mouth 3 (three) Medical times Branch daily as needed for Cough. benzonatate 2021-02 Yes [id number] 100mg Take 1 [facility] 100 mg 1-05 capsule by ity of capsule 00:00: mouth 3 [place] 00 (three) Medical times Branch daily as needed for Cough. benzonatate 2021-02- No [id number] 100mg Take 1 [facility] 100 mg 1-05 08-15 capsule by ity of capsule 00:00: 00:00 mouth 3 [place] 00 :00 (three) Medical times Branch daily as needed for Cough. benzonatate 2021-02- No [id number] 100mg Take 1 [facility] 100 mg 1-05 08-15 capsule by ity of capsule 00:00: 00:00 mouth 3 [place] 00 :00 (three) Medical times Branch daily as needed for Cough. amoxicillin 2021-02- No [id number] 1{tbl} Take 1 Univers -clavulanat 1-05 11-13 tablet by it y of e [id number] 00:00: 05:59 mouth [place] mg per 00 :00 every 12 Medical tablet (twelve) Branch hours for 7 days. NaCl 0.9% 2021-02 No 1000mL at 999 Uni vers (NS) bolus 0-19 10-20 mL/hr, ity of infusion 22:30: 00:44 1,000 mL, [place] 1,000 mL 00 :00 IV Medical Infusion, Branch ONCE, 1 dose, On Sat12/13/21 at 1730, [facility]OS[facility] ketorolac 2021-02 No 15mg 15 mg, Unive rs (TORADOL) 0- 10-19 Slow IV ity of injection 22:30: 23:58 Push, [place] 15 mg 00 :00 ONCE, 1 Medical dose, On Branch Sat12/13/21 at 1730, Routine famotidine 2021-02 No 20mg 20 mg, Univ ers (PEPCID 0-19 10-19 Slow IV ity of (PF)) 22:30: 23:57 Push, [place] injection 00 :00 ONCE, 1 Medical 20 mg dose, On Branch Sat12/13/21 at 1730, [facility]OS[facility] maalox:diph 2021-02 No 15mL 15 mL, Uni vers enhydrAMINE 0-19 10-19 Oral, ity of :lidocaine 22:30: 23:58 ONCE, 1 [place] 2 % viscous 00 :00 dose, On Medi silver 1:1:1 Wed Branch ([facility] 12/13/21 [facility]) at 1730, oral JOSI suspension 15 mL hydrocortis 2021-02 Yes [id number] 1{appli Insert 1 Univers one-pramovi 0-19 cator} Applicator ity of ne rectal 00:00: into [place] foam 00 rectum in Medical the Branch morning and 1 Applicator in the evening. dicyclomine 2021-02 Yes [id number] 20mg Take 1 [facility] 20 mg 0-19 tablet by ity of tablet 00:00: mouth 4 [place] 00 (four) Medical times [place] daily as needed for Abdominal pain. hydrocortis 2021-02 Yes [id number] 1{appli Insert 1 [facility] one-pramovi 0-19 cator} Applicator ity of ne rectal 00:00: into [place] foam 00 rectum in [facility] the Branch morning and 1 Applicator in the evening. dicyclomine 2021-02 Yes [id number] 20mg Take 1 [facility] 20 mg 0-19 tablet by ity of tablet 00:00: mouth 4 [place] 00 (four) Medical times [place] daily as needed for Abdominal pain. hydrocortis 2021-02 Yes [id number] 1{appli Insert 1 [facility] one-pramovi 0-19 cator} Applicator ity of ne rectal 00:00: into [place] foam 00 rectum in [facility] the Branch morning and 1 Applicator in the evening. dicyclomine 2021-02 Yes [id number] 20mg Take 1 [facility] 20 mg 0-19 tablet by ity of tablet 00:00: mouth 4 [place] 00 (four) Medical times [place] daily as needed for Abdominal pain. hydrocortis 2021-02 Yes [id number] 1{appli Insert 1 [facility] one-pramovi 0-19 cator} Applicator ity of ne rectal 00:00: into [place] foam 00 rectum in Medical the Branch morning and 1 Applicator in the evening. dicyclomine 2021-02 Yes [id number] 20mg Take 1 [facility] 20 mg 0-19 tablet by ity of tablet 00:00: mouth 4 [place] 00 (four) Medical times [place] daily as needed for Abdominal pain. hydrocortis 2021-02 Yes [id number] 1{appli Insert 1 [facility] one-pramovi 0-19 cator} Applicator ity of ne rectal 00:00: into [place] foam 00 rectum in Medical the [place] morning and 1 Applicator in the evening. dicyclomine 2021-02 Yes [id number] 20mg Take 1 [facility] 20 mg 0-19 tablet by ity of tablet 00:00: mouth 4 [place] 00 (four) Medical times [place] daily as needed for Abdominal pain. hydrocortis 2021-02 Yes [id number] 1{appli Insert 1 [facility] one-pramovi 0-19 cator} Applicator ity of ne rectal 00:00: into [place] foam 00 rectum in Medical the [place] morning and 1 Applicator in the evening. dicyclomine 2021-02 Yes [id number] 20mg Take 1 [facility] 20 mg 0-19 tablet by ity of tablet 00:00: mouth 4 (four) [facility] times [place] daily as needed for Abdominal pain. hydrocortis 2021-02 Yes [id number] 1{appli Insert 1 [facility] one-pramovi 0-19 cator} Applicator ity of ne rectal 00:00: into [place] foam 00 rectum in [facility] the [place] morning and 1 Applicator in the evening. dicyclomine 2021-02 Yes [id number] 20mg Take 1 [facility] 20 mg 0-19 tablet by ity of tablet 00:00: mouth 4 [place] (four) [facility] daily as needed for Abdominal pain. hydrocortis 2021-02 Yes [id number] 1{appli Insert 1 [facility] one-pramovi 0-19 cator} Applicator ity of ne rectal 00:00: into [place] foam 00 rectum in [facility] the [place] morning and 1 Applicator in the evening. dicyclomine 2021-02 Yes [id number] 20mg Take 1 [facility] 20 mg 0-19 tablet by ity of tablet 00:00: mouth 4 [place] 00 (four) Medical times [place] daily as needed for Abdominal pain. hydrocortis 2021-02 Yes [id number] 1{appli Insert 1 [facility] one-pramovi 0-19 cator} Applicator ity of ne rectal 00:00: into [place] foam 00 rectum in Medical the [place] morning and 1 Applicator in the evening. dicyclomine 2021-02 Yes [id number] 20mg Take 1 [facility] 20 mg 0-19 tablet by ity of tablet 00:00: mouth 4 [place] 00 (four) Medical times [place] daily as needed for Abdominal pain. hydrocortis 2021-02 Yes [id number] 1{appli Insert 1 [facility] one-pramovi 0-19 cator} Applicator ity of ne rectal 00:00: into [place] foam 00 rectum in Medical the Branch morning and 1 Applicator in the evening. dicyclomine 2021-02 Yes [id number] 20mg Take 1 [facility] 20 mg 0-19 tablet by ity of tablet 00:00: mouth 4 [place] 00 (four) Medical times [place] daily as needed for Abdominal pain. hydrocortis 2021-02 Yes [id number] 1{appli Insert 1 [facility] one-pramovi 0-19 cator} Applicator ity of ne rectal 00:00: into [place] foam 00 rectum in Medical the Branch morning and 1 Applicator in the evening. dicyclomine 2021-02 Yes [id number] 20mg Take 1 [facility] 20 mg 0-19 tablet by ity of tablet 00:00: mouth 4 00 (four) Medical times [place] daily as needed for Abdominal pain. hydrocortis 2021-02 Yes [id number] 1{appli Insert 1 [facility] one-pramovi 0-19 cator} Applicator ity of ne rectal 00:00: into [place] foam 00 rectum in Medical the Branch morning and 1 Applicator in the evening. dicyclomine 2021-02 Yes [id number] 20mg Take 1 [facility] 20 mg 0-19 tablet by ity of tablet 00:00: mouth 4 [place] 00 (four) Medical times [place] daily as needed for Abdominal pain. hydrocortis 2021-02 Yes [id number] 1{appli Insert 1 [facility] one-pramovi 0-19 cator} Applicator ity of ne rectal 00:00: into [place] foam 00 rectum in Medical the Branch morning and 1 Applicator in the evening. dicyclomine 2021-02 Yes [id number] 20mg Take 1 [facility] 20 mg 0-19 tablet by ity of tablet 00:00: mouth 4 [place] 00 (four) Medical times [place] daily as needed for Abdominal pain. hydrocortis 2021-02 Yes [id number] 1{appli Insert 1 [facility] one-pramovi 0-19 cator} Applicator ity of ne rectal 00:00: into [place] foam 00 rectum in Medical the Branch morning and 1 Applicator in the evening. dicyclomine 2021-02 Yes [id number] 20mg Take 1 [facility] 20 mg 0-19 tablet by ity of tablet 00:00: mouth 4 [place] 00 (four) Medical times [place] daily as needed for Abdominal pain. hydrocortis 2021-02 Yes [id number] 1{appli Insert 1 [facility] one-pramovi 0-19 cator} Applicator ity of ne rectal 00:00: into [place] foam 00 rectum in Medical the [place] morning and 1 Applicator in the evening. dicyclomine 2021-02 Yes [id number] 20mg Take 1 [facility] 20 mg 0-19 tablet by ity of tablet 00:00: mouth 4 [place] 00 (four) Medical times [place] daily as needed for Abdominal pain. hydrocortis 2021-02 Yes [id number] 1{appli Insert 1 [facility] one-pramovi 0-19 cator} Applicator ity of ne rectal 00:00: into [place] foam 00 rectum in Medical the [place] morning and 1 Applicator in the evening. dicyclomine 2021-02 Yes [id number] 20mg Take 1 [facility] 20 mg 0-19 tablet by ity of tablet 00:00: mouth 4 [place] 00 (four) Medical times [place] daily as needed for Abdominal pain. hydrocortis 2021-02 Yes [id number] 1{appli Insert 1 [facility] one-pramovi 0-19 cator} Applicator ity of ne rectal 00:00: into [place] foam 00 rectum in Medical the [place] morning and 1 Applicator in the evening. dicyclomine 2021-02 Yes [id number] 20mg Take 1 [facility] 20 mg 0-19 tablet by ity of tablet 00:00: mouth 4 [place] 00 (four) Medical times [place] daily as needed for Abdominal pain. hydrocortis 2021-02 Yes [id number] 1{appli Insert 1 [facility] one-pramovi 0-19 cator} Applicator ity of ne rectal 00:00: into [place] foam 00 rectum in Medical the [place] morning and 1 Applicator in the evening. dicyclomine 2021-02 Yes [id number] 20mg Take 1 [facility] 20 mg 0-19 tablet by ity of tablet 00:00: mouth 4 [place] 00 (four) Medical times [place] daily as needed for Abdominal pain. hydrocortis 2021-02 Yes [id number] 1{appli Insert 1 [facility] one-pramovi 0-19 cator} Applicator ity of ne rectal 00:00: into [place] foam 00 rectum in Medical the [place] morning and 1 Applicator in the evening. dicyclomine 2021-02 Yes [id number] 20mg Take 1 [facility] 20 mg 0-19 tablet by ity of tablet 00:00: mouth 4 [place] 00 (four) Medical times [place] daily as needed for Abdominal pain. hydrocortis 2021-02 Yes [id number] 1{appli Insert 1 [facility] one-pramovi 0-19 cator} Applicator ity of ne rectal 00:00: into [place] foam 00 rectum in Medical the [place] morning and 1 Applicator in the evening. dicyclomine 2021-02 Yes [id number] 20mg Take 1 [facility] 20 mg 0-19 tablet by ity of tablet 00:00: mouth 4 [place] 00 (four) Medical times [place] daily as needed for Abdominal pain. hydrocortis 2021-02 Yes [id number] 1{appli Insert 1 [facility] one-pramovi 0-19 cator} Applicator ity of ne rectal 00:00: into [place] foam 00 rectum in [facility] the [place] morning and 1 Applicator in the evening. dicyclomine 2021-02 Yes [id number] 20mg Take 1 [facility] 20 mg 0-19 tablet by ity of tablet 00:00: mouth 4 [place] 00 (four) [facility] times [place] daily as needed for Abdominal pain. hydrocortis 2021-02 Yes [id number] 1{appli Insert 1 [facility] one-pramovi 0-19 cator} Applicator ity of ne rectal 00:00: into [place] foam 00 rectum in Medical the [place] morning and 1 Applicator in the evening. dicyclomine 2021-02 Yes [id number] 20mg Take 1 [facility] 20 mg 0-19 tablet by ity of tablet 00:00: mouth 4 [place] 00 (four) Medical times [place] daily as needed for Abdominal pain. hydrocortis 2021-02 Yes [id number] 1{appli Insert 1 [facility] one-pramovi 0-19 cator} Applicator ity of ne rectal 00:00: into [place] foam 00 rectum in Medical the [place] morning and 1 Applicator in the evening. dicyclomine 2021-02 Yes [id number] 20mg Take 1 [facility] 20 mg 0-19 tablet by ity of tablet 00:00: mouth 4 [place] 00 (four) Medical times [place] daily as needed for Abdominal pain. hydrocortis 2021-02 Yes [id number] 1{appli Insert 1 [facility] one-pramovi 0-19 cator} Applicator ity of ne rectal 00:00: into [place] foam 00 rectum in Medical the Branch morning and 1 Applicator in the evening. dicyclomine 2021-02 Yes [id number] 20mg Take 1 [facility] 20 mg 0-19 tablet by ity of tablet 00:00: mouth 4 [place] 00 (four) Medical times [place] daily as needed for Abdominal pain. hydrocortis 2021-02 Yes [id number] 1{appli Insert 1 [facility] one-pramovi 0-19 cator} Applicator ity of ne rectal 00:00: into [place] foam 00 rectum in Medical the Branch morning and 1 Applicator in the evening. dicyclomine 2021-02 Yes [id number] 20mg Take 1 [facility] 20 mg 0-19 tablet by ity of tablet 00:00: mouth 4 [place] 00 (four) Medical times [place] daily as needed for Abdominal pain. hydrocortis 2021-02 Yes [id number] 1{appli Insert 1 [facility] one-pramovi 0-19 cator} Applicator ity of ne rectal 00:00: into [place] foam 00 rectum in Medical the Branch morning and 1 Applicator in the evening. dicyclomine 2021-02 Yes [id number] 20mg Take 1 [facility] 20 mg 0-19 tablet by ity of tablet 00:00: mouth 4 [place] 00 (four) Medical times [place] daily as needed for Abdominal pain. hydrocortis 2021-02 Yes [id number] 1{appli Insert 1 [facility] one-pramovi 0-19 cator} Applicator ity of ne rectal 00:00: into [place] foam 00 rectum in Medical the [place] morning and 1 Applicator in the evening. dicyclomine 2021-02 Yes [id number] 20mg Take 1 [facility] 20 mg 0-19 tablet by ity of tablet 00:00: mouth 4 [place] 00 (four) Medical times [place] daily as needed for Abdominal pain. hydrocortis 2021-02 Yes [id number] 1{appli Insert 1 [facility] one-pramovi 0-19 cator} Applicator ity of ne rectal 00:00: into [place] foam 00 rectum in Medical the [place] morning and 1 Applicator in the evening. dicyclomine 2021-02 Yes [id number] 20mg Take 1 [facility] 20 mg 0-19 tablet by ity of tablet 00:00: mouth 4 [place] 00 (four) [facility] times [place] daily as needed for Abdominal pain. hydrocortis 2021-02 Yes [id number] 1{appli Insert 1 [facility] one-pramovi 0-19 cator} Applicator ity of ne rectal 00:00: into [place] foam 00 rectum in Medical the [place] morning and 1 Applicator in the evening. dicyclomine 2021-02 Yes [id number] 20mg Take 1 [facility] 20 mg 0-19 tablet by ity of tablet 00:00: mouth 4 (four) [facility] daily as needed for Abdominal pain. hydrocortis 2021-02 Yes [id number] 1{appli Insert 1 [facility] one-pramovi 0-19 cator} Applicator ity of ne rectal 00:00: into [place] foam 00 rectum in [facility] the [place] morning and 1 Applicator in the evening. dicyclomine 2021-02 Yes [id number] 20mg Take 1 [facility] 20 mg 0-19 tablet by ity of tablet 00:00: mouth 4 (four) [facility] daily as needed for Abdominal pain. hydrocortis 2021-02 Yes [id number] 1{appli Insert 1 [facility] one-pramovi 0-19 cator} Applicator ity of ne rectal 00:00: into [place] foam 00 rectum in Medical the [place] morning and 1 Applicator in the evening. dicyclomine 2021-02 Yes [id number] 20mg Take 1 [facility] 20 mg 0-19 tablet by ity of tablet 00:00: mouth 4 [place] 00 (four) Medical times [place] daily as needed for Abdominal pain. hydrocortis 2021-02 Yes [id number] 1{appli Insert 1 [facility] one-pramovi 0-19 cator} Applicator ity of ne rectal 00:00: into [place] foam 00 rectum in Medical the [place] morning and 1 Applicator in the evening. dicyclomine 2021-02 Yes [id number] 20mg Take 1 [facility] 20 mg 0-19 tablet by ity of tablet 00:00: mouth 4 [place] 00 (four) Medical times [place] daily as needed for Abdominal pain. hydrocortis 2021-02 Yes [id number] 1{appli Insert 1 [facility] one-pramovi 0-19 cator} Applicator ity of ne rectal 00:00: into [place] foam 00 rectum in Medical the [place] morning and 1 Applicator in the evening. dicyclomine 2021-02 Yes [id number] 20mg Take 1 [facility] 20 mg 0-19 tablet by ity of tablet 00:00: mouth 4 [place] (four) Medical times [place] daily as needed for Abdominal pain. hydrocortis 2021-02 Yes [id number] 1{appli Insert 1 [facility] one-pramovi 0-19 cator} Applicator ity of ne rectal 00:00: into [place] foam 00 rectum in Medical the [place] morning and 1 Applicator in the evening. dicyclomine 2021-02 Yes [id number] 20mg Take 1 [facility] 20 mg 0-19 tablet by ity of tablet 00:00: mouth 4 [place] ([facility]) [facility] daily as needed for Abdominal pain. hydrocortis 2021-02 Yes [id number] 1{appli Insert 1 [facility] one-pramovi 0-19 cator} Applicator ity of ne rectal 00:00: into [place] foam 00 rectum in [facility] the [place] morning and 1 Applicator in the evening. dicyclomine 2021-02 Yes [id number] 20mg Take 1 [facility] 20 mg 0-19 tablet by ity of tablet 00:00: mouth 4 [place] ([facility]) [facility] daily as needed for Abdominal pain. hydrocortis 2021-02 Yes [id number] 1{appli Insert 1 [facility] one-pramovi 0-19 cator} Applicator ity of ne rectal 00:00: into [place] foam 00 rectum in Medical the [place] morning and 1 Applicator in the evening. dicyclomine 2021-02 Yes [id number] 20mg Take 1 [facility] 20 mg 0-19 tablet by ity of tablet 00:00: mouth 4 [place] (four) [facility] daily as needed for Abdominal pain. hydrocortis 2021-02 Yes [id number] 1{appli Insert 1 [facility] one-pramovi 0-19 cator} Applicator ity of ne rectal 00:00: into [place] foam 00 rectum in Medical the [place] morning and 1 Applicator in the evening. dicyclomine 2021-02 Yes [id number] 20mg Take 1 [facility] 20 mg 0-19 tablet by ity of tablet 00:00: mouth 4 (four) [facility] daily as needed for Abdominal pain. hydrocortis 2021-02 Yes [id number] 1{appli Insert 1 [facility] one-pramovi 0-19 cator} Applicator ity of ne rectal 00:00: into [place] foam 00 rectum in [facility] the [place] morning and 1 Applicator in the evening. dicyclomine 2021-02 Yes [id number] 20mg Take 1 [facility] 20 mg 0-19 tablet by ity of tablet 00:00: mouth 4 ([facility]) [facility] daily as needed for Abdominal pain. hydrocortis 2021-02 Yes [id number] 1{appli Insert 1 [facility] one-pramovi 0-19 cator} Applicator ity of ne rectal 00:00: into [place] foam 00 rectum in [facility] the [place] morning and 1 Applicator in the evening. dicyclomine 2021-02 Yes [id number] 20mg Take 1 [facility] 20 mg 0-19 tablet by ity of tablet 00:00: mouth 4 ([facility]) [facility] daily as needed for Abdominal pain. hydrocortis 2021-02 Yes [id number] 1{appli Insert 1 [facility] one-pramovi 0-19 cator} Applicator ity of ne rectal 00:00: into [place] foam 00 rectum in [facility] the [place] morning and 1 Applicator in the evening. dicyclomine 2021-02 Yes [id number] 20mg Take 1 [facility] 20 mg 0-19 tablet by ity of tablet 00:00: mouth 4 [place] 00 (four) [facility] daily as needed for Abdominal pain. hydrocortis 2021-02 Yes [id number] 1{appli Insert 1 [facility] one-pramovi 0-19 cator} Applicator ity of ne rectal 00:00: into [place] foam 00 rectum in [facility] the [place] morning and 1 Applicator in the evening. dicyclomine 2021-02 Yes [id number] 20mg Take 1 [facility] 20 mg 0-19 tablet by ity of tablet 00:00: mouth 4 [place] 00 (four) [facility] daily as needed for Abdominal pain. hydrocortis 2021-02 Yes [id number] 1{appli Insert 1 [facility] one-pramovi 0-19 cator} Applicator ity of ne rectal 00:00: into [place] foam 00 rectum in Medical the Branch morning and 1 Applicator in the evening. dicyclomine 2021-02 Yes [id number] 20mg Take 1 [facility] 20 mg 0-19 tablet by ity of tablet 00:00: mouth 4 [place] 00 (four) Medical times [place] daily as needed for Abdominal pain. hydrocortis 2021-02 Yes [id number] 1{appli Insert 1 [facility] one-pramovi 0-19 cator} Applicator ity of ne rectal 00:00: into [place] foam 00 rectum in Medical the Branch morning and 1 Applicator in the evening. dicyclomine 2021-02 Yes [id number] 20mg Take 1 [facility] 20 mg 0-19 tablet by ity of tablet 00:00: mouth 4 [place] 00 (four) Medical times [place] daily as needed for Abdominal pain. hydrocortis 2021-02 Yes [id number] 1{appli Insert 1 [facility] one-pramovi 0-19 cator} Applicator ity of ne rectal 00:00: into [place] foam 00 rectum in Medical the [place] morning and 1 Applicator in the evening. dicyclomine 2021-02 Yes [id number] 20mg Take 1 [facility] 20 mg 0-19 tablet by ity of tablet 00:00: mouth 4 [place] 00 (four) Medical times [place] daily as needed for Abdominal pain. hydrocortis 2021-02 Yes [id number] 1{appli Insert 1 [facility] one-pramovi 0-19 cator} Applicator ity of ne rectal 00:00: into [place] foam 00 rectum in Medical the Branch morning and 1 Applicator in the evening. dicyclomine 2021-02 Yes [id number] 20mg Take 1 [facility] 20 mg 0-19 tablet by ity of tablet 00:00: mouth 4 [place] 00 (four) Medical times [place] daily as needed for Abdominal pain. hydrocortis 2021-02 Yes [id number] 1{appli Insert 1 [facility] one-pramovi 0-19 cator} Applicator ity of ne rectal 00:00: into [place] foam 00 rectum in Medical the Branch morning and 1 Applicator in the evening. dicyclomine 2021-02 Yes [id number] 20mg Take 1 [facility] 20 mg 0-19 tablet by ity of tablet 00:00: mouth 4 [place] 00 (four) Medical times [place] daily as needed for Abdominal pain. hydrocortis 2021-02 Yes [id number] 1{appli Insert 1 [facility] one-pramovi 0-19 cator} Applicator ity of ne rectal 00:00: into [place] foam 00 rectum in Medical the Branch morning and 1 Applicator in the evening. dicyclomine 2021-02 Yes [id number] 20mg Take 1 [facility] 20 mg 0-19 tablet by ity of tablet 00:00: mouth 4 [place] 00 (four) Medical times [place] daily as needed for Abdominal pain. hydrocortis 2021-02 Yes [id number] 1{appli Insert 1 [facility] one-pramovi 0-19 cator} Applicator ity of ne rectal 00:00: into [place] foam 00 rectum in Medical the Branch morning and 1 Applicator in the evening. dicyclomine 2021-02 Yes [id number] 20mg Take 1 [facility] 20 mg 0-19 tablet by ity of tablet 00:00: mouth 4 [place] 00 (four) Medical times [place] daily as needed for Abdominal pain. hydrocortis 2021-02 Yes [id number] 1{appli Insert 1 [facility] one-pramovi 0-19 cator} Applicator ity of ne rectal 00:00: into [place] foam 00 rectum in Medical the Branch morning and 1 Applicator in the evening. dicyclomine 2021-02 Yes [id number] 20mg Take 1 [facility] 20 mg 0-19 tablet by ity of tablet 00:00: mouth 4 [place] 00 (four) Medical times [place] daily as needed for Abdominal pain. hydrocortis 2021-02 Yes [id number] 1{appli Insert 1 [facility] one-pramovi 0-19 cator} Applicator ity of ne rectal 00:00: into [place] foam 00 rectum in Medical the Branch morning and 1 Applicator in the evening. dicyclomine 2021-02 Yes [id number] 20mg Take 1 [facility] 20 mg 0-19 tablet by ity of tablet 00:00: mouth 4 [place] 00 (four) Medical times [place] daily as needed for Abdominal pain. hydrocortis 2021-02 Yes [id number] 1{appli Insert 1 [facility] one-pramovi 0-19 cator} Applicator ity of ne rectal 00:00: into [place] foam 00 rectum in Medical the Branch morning and 1 Applicator in the evening. dicyclomine 2021-02 Yes [id number] 20mg Take 1 [facility] 20 mg 0-19 tablet by ity of tablet 00:00: mouth 4 [place] 00 (four) Medical times [place] daily as needed for Abdominal pain. hydrocortis 2021-02 Yes [id number] 1{appli Insert 1 [facility] one-pramovi 0-19 cator} Applicator ity of ne rectal 00:00: into [place] foam 00 rectum in Medical the [place] morning and 1 Applicator in the evening. dicyclomine 2021-02 Yes [id number] 20mg Take 1 [facility] 20 mg 0-19 tablet by ity of tablet 00:00: mouth 4 [place] 00 (four) Medical times [place] daily as needed for Abdominal pain. hydrocortis 2021-02 Yes [id number] 1{appli Insert 1 [facility] one-pramovi 0-19 cator} Applicator ity of ne rectal 00:00: into [place] foam 00 rectum in Medical the [place] morning and 1 Applicator in the evening. dicyclomine 2021-02 Yes [id number] 20mg Take 1 [facility] 20 mg 0-19 tablet by ity of tablet 00:00: mouth 4 [place] 00 (four) Medical times [place] daily as needed for Abdominal pain. hydrocortis 2021-02- No [id number] 1{appli Insert 1 [facility] one-pramovi 0-19 08-15 cator} Applicator ity of ne rectal 00:00: 00:00 into [place] foam 00 :00 rectum in Medical the [place] morning and 1 Applicator in the evening. dicyclomine 2021-02- No [id number] 20mg Take 1 [facility] 20 mg 0-19 08-15 tablet by ity of tablet 00:00: 00:00 mouth 4 [place] 00 :00 (four) Medical times [place] daily as needed for Abdominal pain. hydrocortis 2021-02- No [id number] 1{appli Insert 1 [facility] one-pramovi 0-19 08-15 cator} Applicator ity of ne rectal 00:00: 00:00 into [place] foam 00 :00 rectum in Medical the Branch morning and 1 Applicator in the evening. dicyclomine 2021-02- No [id number] 20mg Take 1 [facility] 20 mg 0-19 08-15 tablet by ity of tablet 00:00: 00:00 mouth 4 [place] 00 :00 (four) Medical times [place] daily as needed for Abdominal pain. polyethylen 2021-02- No [id number] 1{packe Take 1 [facility] e glycol 0-19 11-19 t} Packet by ity o f 3350 00:00: 05:59 mouth in [place] ([facility]) 00 :00 the Medical 17 gram morning Branch powder and 1 Packet in the evening. Do all this for 30 days. omeprazole 2021-02- No [id number] 40mg Take 1 [facility] 40 mg 0-19 11-19 capsule by ity of capsule 00:00: 05:59 mouth in [place] 00 :00 the [facility] morning [place] for 30 days. polyethylen 2021-02- No [id number] 1{packe Take 1 [facility] e glycol 0-19 11-19 t} Packet by ity o f 3350 00:00: 05:59 mouth in [place] ([facility]) 00 :00 the Medical 17 gram morning Branch powder and 1 Packet in the evening. Do all this for 30 days. omeprazole 2021-02- No [id number] 40mg Take 1 [facility] 40 mg 0-19 11-19 capsule by ity of capsule 00:00: 05:59 mouth in [place] 00 :00 the [facility] for 30 days. metroNIDAZO 2021- No [id number] 500mg Take 1 [facility] LE 500 mg 11-13 tablet by ity of tablet 00:00: 04:59 mouth in [place] 00 :00 [facility] morning [place] and 1 tablet in the evening. Do all this for 7 days. metroNIDAZO 2021- No [id number] 500mg Take 1 [facility] LE 500 mg 11-13 tablet by ity of tablet 00:00: 04:59 mouth in [place] 00 :00 the [facility] and 1 tablet in the evening. Do all this for 7 days. SERTraline 2021- No [id number] Take 0.5 [facility] 100 mg 9-16 10-19 tablets by ity of tablet 00:00: 04:59 mouth [place] 00 :00 daily for Medical 4 days, Branch THEN 1 tablet daily for 28 days. SERTraline 2021- No [id number] Take 0.5 [facility] 100 mg 9-16 10-19 tablets by ity of tablet 00:00: 04:59 mouth [place] 00 :00 daily for Medical 4 days, Branch THEN 1 tablet daily for 28 days. SERTraline 2021- No [id number] Take 0.5 [facility] 100 mg 9-16 10-19 tablets by ity of tablet 00:00: 04:59 mouth [place] 00 :00 daily for Medical 4 days, Branch THEN 1 tablet daily for 28 days. acetaminoph Yes [id number] 650mg Take 2 [facility] en 325 mg 8-04 tablets by ity of tablet 00:00: mouth [place] 00 every 6 Medical (six) Branch hours as needed for Pain (scale 1-3) or Pain (scale 4-6). Yes [id number] 1{tbl} Take 1 U nivers vitamin 8-04 tablet by ity of w/FA tablet 00:00: mouth in [place] 00 the Medical morning. Branch docusate Yes [id number] 200mg Take 2 Un ita 100 mg 8-04 capsules ity of capsule 00:00: by mouth [place] 00 once daily Medical as needed Branch for Constipati on. ferrous Yes [id number] 325mg Take 1 [facility] vers sulfate 325 8-04 tablet by [facility] mg (65 mg 00:00: [place] [facility] 00 the [facility] tablet morning Branch and 1 tablet in the evening. ibuprofen Yes [id number] 600mg Take 1 [facility] nivers 600 mg 8-04 tablet by [facility] of tablet 00:00: mouth [place] 00 every 6 Medical (six) Branch hours as needed (Pain). Take with food or milk. acetaminoph Yes [id number] 650mg Take 2 [facility] en 325 mg 8-04 tablets by [facility] of tablet 00:00: mouth [place] 00 every 6 Medical (six) Branch hours as needed for Pain (scale 1-3) or Pain (scale 4-6). Yes [id number] 1{tbl} Take 1 [facility] nivers vitamin 8-04 tablet by [facility] of w/FA tablet 00:00: mouth in [place] 00 the Medical morning. Branch docusate 0 Yes [id number] 200mg Take 2 [facility] ita 100 mg 8-04 capsules ity of capsule 00:00: by mouth [place] 00 once daily Medical as needed Branch for Constipati on. ferrous 2021-0 Yes [id number] 325mg Take 1 [facility] vers sulfate 325 8-04 tablet by [facility] mg (65 mg 00:00: [facility] [place] [facility] 00 the Medical tablet morning Branch and 1 tablet in the evening. ibuprofen 2021-0 Yes [id number] 600mg Take 1 [facility] nivers 600 mg 8-04 tablet by [facility] of tablet 00:00: mouth [place] 00 every 6 Medical (six) Branch hours as needed (Pain). Take with food or milk. acetaminoph 0 Yes [id number] 650mg Take 2 [facility] en 325 mg 8-04 tablets by [facility] of tablet 00:00: mouth [place] 00 every 6 Medical (six) Branch hours as needed for Pain (scale 1-3) or Pain (scale 4-6). 0 Yes [id number] 1{tbl} Take 1 [facility] nivers vitamin 8-04 tablet by [facility] of w/FA tablet 00:00: mouth in [place] 00 the Medical morning. Branch docusate 0 Yes [id number] 200mg Take 2 [facility] ita 100 mg 8-04 capsules it[facility] of capsule 00:00: by mouth [place] 00 once daily Medical as needed Branch for Constipati on. ferrous 0 Yes [id number] 325mg Take 1 [facility] vers sulfate 325 8-04 tablet by [facility] mg (65 mg 00:00: [facility] [place] [facility] 00 the Medical tablet morning Branch and 1 tablet in the evening. ibuprofen 2021-0 Yes [id number] 600mg Take 1 [facility] 600 mg 8-04 tablet by [facility] of tablet 00:00: mouth [place] 00 every 6 Medical (six) Branch hours as needed (Pain). Take with food or milk. acetaminoph 2021-0 Yes [id number] 650mg Take 2 [facility] en 325 mg 8-04 tablets by [facility] of tablet 00:00: mouth [place] 00 every 6 Medical (six) Branch hours as needed for Pain (scale 1-3) or Pain (scale 4-6). 2021-0 Yes [id number] 1{tbl} Take 1 [facility] vitamin 8-04 tablet by [facility] of w/FA tablet 00:00: mouth in [place] 00 the Medical morning. Branch docusate 0 Yes [id number] 200mg Take 2 [facility] ita 100 mg 8-04 capsules [facility] of capsule 00:00: by mouth [place] 00 once daily Medical as needed Branch for Constipati on. ferrous 2021-0 Yes [id number] 325mg Take 1 [facility] vers sulfate 325 8-04 tablet by [facility] mg (65 mg 00:00: [facility] [place] [facility] 00 the Medical tablet morning Branch and 1 tablet in the evening. ibuprofen 2021-0 Yes [id number] 600mg Take 1 [facility] 600 mg 8-04 tablet by [facility] of tablet 00:00: mouth [place] 00 every 6 Medical (six) Branch hours as needed (Pain). Take with food or milk. acetaminoph 0 Yes [id number] 650mg Take 2 [facility] en 325 mg 8-04 tablets by [facility] of tablet 00:00: mouth [place] 00 every 6 Medical (six) Branch hours as needed for Pain (scale 1-3) or Pain (scale 4-6). 2021-0 Yes [id number] 1{tbl} Take 1 [facility] n[facility] vitamin 8-04 tablet by [facility] of w/FA tablet 00:00: mouth in [place] 00 the Medical morning. Branch docusate 0 Yes [id number] 200mg Take 2 [facility] ita 100 mg 8-04 capsules [facility] of capsule 00:00: by mouth [place] 00 once daily Medical as needed Branch for Constipati on. ferrous 2021-0 Yes [id number] 325mg Take 1 [facility] vers sulfate 325 8-04 tablet by [facility] mg (65 mg 00:00: [facility] [place] [facility] 00 the Medical tablet morning Branch and 1 tablet in the evening. ibuprofen 2021-0 Yes [id number] 600mg Take 1 [facility] 600 mg 8-04 tablet by [facility] of tablet 00:00: mouth [place] 00 every 6 Medical (six) Branch hours as needed (Pain). Take with food or milk. acetaminoph 0 Yes [id number] 650mg Take 2 [facility] en 325 mg 8-04 tablets by [facility] of tablet 00:00: mouth [place] 00 every 6 Medical (six) Branch hours as needed for Pain (scale 1-3) or Pain (scale 4-6). 2021-0 Yes [id number] 1{tbl} Take 1 [facility] n[facility] vitamin 8-04 tablet by [facility] of w/FA tablet 00:00: mouth in [place] 00 the Medical morning. Branch docusate 0 Yes [id number] 200mg Take 2 [facility] ita 100 mg 8-04 capsules it[facility] of capsule 00:00: by mouth [place] 00 once daily Medical as needed Branch for Constipati on. ferrous 2021-0 Yes [id number] 325mg Take 1 [facility] vers sulfate 325 8-04 tablet by [facility] mg (65 mg 00:00: [facility] [place] [facility] 00 the Medical tablet morning Branch and 1 tablet in the evening. ibuprofen 0 Yes [id number] 600mg Take 1 [facility]ivers 600 mg 8-04 tablet by [facility] of tablet 00:00: mouth [place] 00 every 6 Medical (six) Branch hours as needed (Pain). Take with food or milk. acetaminoph 0 Yes [id number] 650mg Take 2 [facility] en 325 mg 8-04 tablets by [facility] of tablet 00:00: mouth [place] 00 every 6 Medical (six) Branch hours as needed for Pain (scale 1-3) or Pain (scale 4-6). 0 Yes [id number] 1{tbl} Take 1 [facility] vitamin 8-04 tablet by [facility] of w/FA tablet 00:00: mouth in [place] 00 the Medical morning. Branch docusate 0 Yes [id number] 200mg Take 2 [facility] ita 100 mg 8-04 capsules it[facility] of capsule 00:00: by mouth [place] 00 once daily Medical as needed Branch for Constipati on. ferrous 2021-0 Yes [id number] 325mg Take 1 [facility] vers sulfate 325 8-04 tablet by [facility] mg (65 mg 00:00: [facility] [place] [facility] 00 the Medical tablet morning Branch and 1 tablet in the evening. ibuprofen 2021-0 Yes [id number] 600mg Take 1 [facility] 600 mg 8-04 tablet by [facility] of tablet 00:00: mouth [place] 00 every 6 Medical (six) Branch hours as needed (Pain). Take with food or milk. acetaminoph 0 Yes [id number] 650mg Take 2 [facility] en 325 mg 8-04 tablets by [facility] of tablet 00:00: mouth [place] 00 every 6 Medical (six) Branch hours as needed for Pain (scale 1-3) or Pain (scale 4-6). 2021-0 Yes [id number] 1{tbl} Take 1 [facility] nivers vitamin 8-04 tablet by [facility] of w/FA tablet 00:00: mouth in [place] 00 the Medical morning. Branch docusate 0 Yes [id number] 200mg Take 2 [facility] ita 100 mg 8-04 capsules [facility] of capsule 00:00: by mouth [place] 00 once daily Medical as needed Branch for Constipati on. ferrous 0 Yes [id number] 325mg Take 1 [facility] vers sulfate 325 8-04 tablet by [facility] mg (65 mg 00:00: [facility] [place] [facility] 00 the Medical tablet morning Branch and 1 tablet in the evening. ibuprofen 0 Yes [id number] 600mg Take 1 [facility] nivers 600 mg 8-04 tablet by [facility] of tablet 00:00: mouth [place] 00 every 6 Medical (six) Branch hours as needed (Pain). Take with food or milk. acetaminoph 0 Yes [id number] 650mg Take 2 [facility] en 325 mg 8-04 tablets by [facility] of tablet 00:00: mouth [place] 00 every 6 Medical (six) Branch hours as needed for Pain (scale 1-3) or Pain (scale 4-6). 0 Yes [id number] 1{tbl} Take 1 [facility] nivers vitamin 8-04 tablet by [facility] of w/FA tablet 00:00: mouth in [place] 00 the Medical morning. Branch docusate 0 Yes [id number] 200mg Take 2 [facility] ita 100 mg 8-04 capsules [facility] of capsule 00:00: by mouth [place] 00 once daily Medical as needed Branch for Constipati on. ferrous 0 Yes [id number] 325mg Take 1 [facility] vers sulfate 325 8-04 tablet by [facility] mg (65 mg 00:00: [facility] [place] [facility] 00 the Medical tablet morning Branch and 1 tablet in the evening. ibuprofen 0 Yes [id number] 600mg Take 1 [facility] nivers 600 mg 8-04 tablet by [facility] of tablet 00:00: mouth [place] 00 every 6 Medical (six) Branch hours as needed (Pain). Take with food or milk. acetaminoph 2021-0 Yes [id number] 650mg Take 2 [facility] en 325 mg 8-04 tablets by [facility] of tablet 00:00: mouth [place] 00 every 6 Medical (six) Branch hours as needed for Pain (scale 1-3) or Pain (scale 4-6). 2021-0 Yes [id number] 1{tbl} Take 1 [facility] nivers vitamin 8-04 tablet by [facility] of w/FA tablet 00:00: mouth in [place] 00 the Medical morning. Branch docusate 0 Yes [id number] 200mg Take 2 [facility] ita 100 mg 8-04 capsules it[facility] of capsule 00:00: by mouth [place] 00 once daily Medical as needed Branch for Constipati on. ferrous 2021-0 Yes [id number] 325mg Take 1 [facility] vers sulfate 325 8-04 tablet by [facility] mg (65 mg 00:00: [facility] [place] [facility] 00 the Medical tablet morning Branch and 1 tablet in the evening. ibuprofen 2021-0 Yes [id number] 600mg Take 1 [facility] 600 mg 8-04 tablet by [facility] of tablet 00:00: mouth [place] 00 every 6 Medical (six) Branch hours as needed (Pain). Take with food or milk. acetaminoph 2021-0 Yes [id number] 650mg Take 2 [facility] en 325 mg 8-04 tablets by [facility] of tablet 00:00: mouth [place] 00 every 6 Medical (six) Branch hours as needed for Pain (scale 1-3) or Pain (scale 4-6). 2021-0 Yes [id number] 1{tbl} Take 1 [facility] vitamin 8-04 tablet by [facility] of w/FA tablet 00:00: mouth in [place] 00 the Medical morning. Branch docusate 2021-0 Yes [id number] 200mg Take 2 [facility] ita 100 mg 8-04 capsules [facility] of capsule 00:00: by mouth [place] 00 once daily Medical as needed Branch for Constipati on. ferrous 2021-0 Yes [id number] 325mg Take 1 [facility] vers sulfate 325 8-04 tablet by [facility] mg (65 mg 00:00: [facility] [place] [facility] 00 the Medical tablet morning Branch and 1 tablet in the evening. ibuprofen 2021-0 Yes [id number] 600mg Take 1 [facility] nivers 600 mg 8-04 tablet by [facility] of tablet 00:00: mouth [place] 00 every 6 Medical (six) Branch hours as needed (Pain). Take with food or milk. acetaminoph 0 Yes [id number] 650mg Take 2 [facility] en 325 mg 8-04 tablets by [facility] of tablet 00:00: mouth [place] 00 every 6 Medical (six) Branch hours as needed for Pain (scale 1-3) or Pain (scale 4-6). Yes [id number] 1{tbl} Take 1 [facility] nivers vitamin 8-04 tablet by [facility] of w/FA tablet 00:00: mouth in [place] 00 the Medical morning. Branch docusate 0 Yes [id number] 200mg Take 2 [facility] ita 100 mg 8-04 capsules it[facility] of capsule 00:00: by mouth [place] 00 once daily Medical as needed Branch for Constipati on. ferrous Yes [id number] 325mg Take 1 [facility] vers sulfate 325 8-04 tablet by [facility] mg (65 mg 00:00: [facility] [place] [facility] 00 the Medical tablet morning Branch and 1 tablet in the evening. ibuprofen 0 Yes [id number] 600mg Take 1 [facility] nivers 600 mg 8-04 tablet by [facility] of tablet 00:00: mouth [place] 00 every 6 Medical (six) Branch hours as needed (Pain). Take with food or milk. acetaminoph 0 Yes [id number] 650mg Take 2 [facility] en 325 mg 8-04 tablets by [facility] of tablet 00:00: mouth [place] 00 every 6 Medical (six) Branch hours as needed for Pain (scale 1-3) or Pain (scale 4-6). Yes [id number] 1{tbl} Take 1 [facility] nivers vitamin 8-04 tablet by [facility] of w/FA tablet 00:00: mouth in [place] 00 the Medical morning. Branch docusate 0 Yes [id number] 200mg Take 2 [facility] ita 100 mg 8-04 capsules [facility] of capsule 00:00: by mouth [place] 00 once daily Medical as needed Branch for Constipati on. ferrous 0 Yes [id number] 325mg Take 1 [facility] vers sulfate 325 8-04 tablet by [facility] mg (65 mg 00:00: mouth [place] [facility] 00 the Medical tablet morning Branch and 1 tablet in the evening. ibuprofen 2021-0 Yes [id number] 600mg Take 1 [facility] nivers 600 mg 8-04 tablet by [facility] of tablet 00:00: mouth [place] 00 every 6 Medical (six) Branch hours as needed (Pain). Take with food or milk. acetaminoph 2021-0 Yes [id number] 650mg Take 2 [facility] en 325 mg 8-04 tablets by [facility] of tablet 00:00: mouth [place] 00 every 6 Medical (six) Branch hours as needed for Pain (scale 1-3) or Pain (scale 4-6). 2021-0 Yes [id number] 1{tbl} Take 1 [facility] vitamin 8-04 tablet by [facility] of w/FA tablet 00:00: mouth in [place] 00 the Medical morning. Branch docusate 0 Yes [id number] 200mg Take 2 [facility] ita 100 mg 8-04 capsules it[facility] of capsule 00:00: by mouth [place] 00 once daily Medical as needed Branch for Constipati on. ferrous 2021-0 Yes [id number] 325mg Take 1 [facility] vers sulfate 325 8-04 tablet by [facility] mg (65 mg 00:00: mouth [place] [facility] 00 the Medical tablet morning Branch and 1 tablet in the evening. ibuprofen 2021-0 Yes [id number] 600mg Take 1 [facility] nivers 600 mg 8-04 tablet by [facility] of tablet 00:00: mouth [place] 00 every 6 Medical (six) Branch hours as needed (Pain). Take with food or milk. acetaminoph 2021-0 Yes [id number] 650mg Take 2 [facility] en 325 mg 8-04 tablets by [facility] of tablet 00:00: mouth [place] 00 every 6 Medical (six) Branch hours as needed for Pain (scale 1-3) or Pain (scale 4-6). 2021-0 Yes [id number] 1{tbl} Take 1 [facility] vitamin 8-04 tablet by [facility] of w/FA tablet 00:00: mouth in [place] 00 the Medical morning. Branch docusate 2021-0 Yes [id number] 200mg Take 2 [facility] ita 100 mg 8-04 capsules ity of capsule 00:00: by mouth [place] 00 once daily Medical as needed Branch for Constipati on. ferrous 2021-0 Yes [id number] 325mg Take 1 [facility] vers sulfate 325 8-04 tablet by [facility] mg (65 mg 00:00: mouth [place] [facility] 00 the Medical tablet morning Branch and 1 tablet in the evening. ibuprofen 0 Yes [id number] 600mg Take 1 [facility] nivers 600 mg 8-04 tablet by [facility] of tablet 00:00: mouth [place] 00 every 6 Medical (six) Branch hours as needed (Pain). Take with food or milk. acetaminoph 0 Yes [id number] 650mg Take 2 [facility] en 325 mg 8-04 tablets by [facility] of tablet 00:00: mouth [place] 00 every 6 Medical (six) Branch hours as needed for Pain (scale 1-3) or Pain (scale 4-6). 2021-0 Yes [id number] 1{tbl} Take 1 [facility] n[facility] vitamin 8-04 tablet by [facility] of w/FA tablet 00:00: mouth in [place] 00 the Medical morning. Branch docusate 0 Yes [id number] 200mg Take 2 [facility] ita 100 mg 8-04 capsules ity of capsule 00:00: by mouth [place] 00 once daily Medical as needed Branch for Constipati on. ferrous 0 Yes [id number] 325mg Take 1 [facility] vers sulfate 325 8-04 tablet by [facility] mg (65 mg 00:00: mouth [place] [facility] 00 the Medical tablet morning Branch and 1 tablet in the evening. ibuprofen 0 Yes [id number] 600mg Take 1 [facility] nivers 600 mg 8-04 tablet by [facility] of tablet 00:00: mouth [place] 00 every 6 Medical (six) Branch hours as needed (Pain). Take with food or milk. acetaminoph 0 Yes [id number] 650mg Take 2 [facility] en 325 mg 8-04 tablets by [facility] of tablet 00:00: mouth [place] 00 every 6 Medical (six) Branch hours as needed for Pain (scale 1-3) or Pain (scale 4-6). 2021-0 Yes [id number] 1{tbl} Take 1 [facility] vitamin 8-04 tablet by [facility] of w/FA tablet 00:00: mouth in [place] 00 the Medical morning. Branch docusate 0 Yes [id number] 200mg Take 2 [facility] ita 100 mg 8-04 capsules ity of capsule 00:00: by mouth [place] 00 once daily Medical as needed Branch for Constipati on. ferrous 2021-0 Yes [id number] 325mg Take 1 [facility] vers sulfate 325 8-04 tablet by [facility] mg (65 mg 00:00: mouth [place] [facility] 00 the Medical tablet morning Branch and 1 tablet in the evening. ibuprofen 2021-0 Yes [id number] 600mg Take 1 [facility] nivers 600 mg 8-04 tablet by [facility] of tablet 00:00: mouth [place] 00 every 6 Medical (six) Branch hours as needed (Pain). Take with food or milk. acetaminoph 0 Yes [id number] 650mg Take 2 [facility] en 325 mg 8-04 tablets by [facility] of tablet 00:00: mouth [place] 00 every 6 Medical (six) Branch hours as needed for Pain (scale 1-3) or Pain (scale 4-6). 0 Yes [id number] 1{tbl} Take 1 [facility] vitamin 8-04 tablet by [facility] of w/FA tablet 00:00: mouth in [place] 00 the Medical morning. Branch docusate 0 Yes [id number] 200mg Take 2 [facility] ita 100 mg 8-04 capsules ity of capsule 00:00: by mouth [place] 00 once daily Medical as needed Branch for Constipati on. ferrous 0 Yes [id number] 325mg Take 1 [facility] vers sulfate 325 8-04 tablet by [facility] mg (65 mg 00:00: mouth [place] [facility] 00 the Medical tablet morning Branch and 1 tablet in the evening. ibuprofen 2021-0 Yes [id number] 600mg Take 1 [facility]ivers 600 mg 8-04 tablet by [facility] of tablet 00:00: mouth [place] 00 every 6 Medical (six) Branch hours as needed (Pain). Take with food or milk. acetaminoph 0 Yes [id number] 650mg Take 2 [facility] en 325 mg 8-04 tablets by [facility] of tablet 00:00: mouth [place] 00 every 6 Medical (six) Branch hours as needed for Pain (scale 1-3) or Pain (scale 4-6). 2021-0 Yes [id number] 1{tbl} Take 1 [facility] vitamin 8-04 tablet by [facility] of w/FA tablet 00:00: mouth in [place] 00 the Medical morning. Branch docusate 2021-0 Yes [id number] 200mg Take 2 [facility] ita 100 mg 8-04 capsules ity of capsule 00:00: by mouth [place] 00 once daily Medical as needed Branch for Constipati on. ibuprofen 2021-0 Yes [id number] 600mg Take 1 [facility] 600 mg 8-04 tablet by [facility] of tablet 00:00: mouth [place] 00 every 6 Medical (six) Branch hours as needed (Pain). Take with food or milk. acetaminoph 2021-0 Yes [id number] 650mg Take 2 [facility] 325 mg 8-04 tablets by [facility] of tablet 00:00: mouth [place] 00 every 6 Medical (six) Branch hours as needed for Pain (scale 1-3) or Pain (scale 4-6). 2021-0 Yes [id number] 1{tbl} Take 1 [facility] vitamin 8-04 tablet by [facility] of w/FA tablet 00:00: mouth in [place] 00 the Medical morning. Branch docusate 2021-0 Yes [id number] 200mg Take 2 [facility] ita 100 mg 8-04 capsules ity of capsule 00:00: by mouth [place] 00 once daily Medical as needed Branch for Constipati on. ibuprofen 2021-0 Yes [id number] 600mg Take 1 [facility] 600 mg 8-04 tablet by [facility] of tablet 00:00: mouth [place] 00 every 6 Medical (six) Branch hours as needed (Pain). Take with food or milk. acetaminoph 2021-0 Yes [id number] 650mg Take 2 [facility] 325 mg 8-04 tablets by [facility] of tablet 00:00: mouth [place] 00 every 6 Medical (six) Branch hours as needed for Pain (scale 1-3) or Pain (scale 4-6). 2021-0 Yes [id number] 1{tbl} Take 1 [facility] vitamin 8-04 tablet by [facility] of w/FA tablet 00:00: mouth in [place] 00 the Medical morning. Branch docusate 2021-0 Yes [id number] 200mg Take 2 [facility] ita 100 mg 8-04 capsules ity of capsule 00:00: by mouth [place] 00 once daily Medical as needed Branch for Constipati on. ibuprofen 2021-0 Yes [id number] 600mg Take 1 [facility] nivers 600 mg 8-04 tablet by [facility] of tablet 00:00: mouth [place] 00 every 6 Medical (six) Branch hours as needed (Pain). Take with food or milk. acetaminoph 2021-0 Yes [id number] 650mg Take 2 [facility] 325 mg 8-04 tablets by [facility] of tablet 00:00: mouth [place] 00 every 6 Medical (six) Branch hours as needed for Pain (scale 1-3) or Pain (scale 4-6). 2021-0 Yes [id number] 1{tbl} Take 1 [facility] vitamin 8-04 tablet by [facility] of w/FA tablet 00:00: mouth in [place] 00 the Medical morning. Branch docusate 0 Yes [id number] 200mg Take 2 [facility] it[facility] 100 mg 8-04 capsules ity of capsule 00:00: by mouth [place] 00 once daily Medical as needed Branch for Constipati on. ibuprofen 2021-0 Yes [id number] 600mg Take 1 [facility] 600 mg 8-04 tablet by [facility] of tablet 00:00: mouth [place] 00 every 6 Medical (six) Branch hours as needed (Pain). Take with food or milk. acetaminoph 2021-0 Yes [id number] 650mg Take 2 [facility] 325 mg 8-04 tablets by [facility] of tablet 00:00: mouth [place] 00 every 6 Medical (six) Branch hours as needed for Pain (scale 1-3) or Pain (scale 4-6). 2021-0 Yes [id number] 1{tbl} Take 1 [facility] vitamin 8-04 tablet by [facility] of w/FA tablet 00:00: mouth in [place] 00 the Medical morning. Branch docusate 2021-0 Yes [id number] 200mg Take 2 [facility] ita 100 mg 8-04 capsules ity of capsule 00:00: by mouth [place] 00 once daily Medical as needed Branch for Constipati on. ibuprofen 2021-0 Yes [id number] 600mg Take 1 [facility] 600 mg 8-04 tablet by [facility] of tablet 00:00: mouth [place] 00 every 6 Medical (six) Branch hours as needed (Pain). Take with food or milk. acetaminoph 2021-0 Yes [id number] 650mg Take 2 [facility] 325 mg 8-04 tablets by [facility] of tablet 00:00: mouth [place] 00 every 6 Medical (six) Branch hours as needed for Pain (scale 1-3) or Pain (scale 4-6). 2022-0 Yes [id number] 1{tbl} Take 1 [facility] vitamin 8-04 tablet by [facility] of w/FA tablet 00:00: mouth in [place] 00 the Medical morning. Branch docusate 0 Yes [id number] 200mg Take 2 [facility] 100 mg 8-04 capsules [facility]y of capsule 00:00: by mouth [place] 00 once daily Medical as needed Branch for Constipati on. ibuprofen Yes [id number] 600mg Take 1 [facility] 600 mg 8-04 tablet by [facility] of tablet 00:00: mouth [place] 00 every 6 Medical (six) Branch hours as needed (Pain). Take with food or milk. acetaminoph Yes [id number] 650mg Take 2 [facility] 325 mg 8-04 tablets by [facility] of tablet 00:00: mouth [place] 00 every 6 Medical (six) Branch hours as needed for Pain (scale 1-3) or Pain (scale 4-6). Yes [id number] 1{tbl} Take 1 [facility] vitamin 8-04 tablet by [facility] of w/FA tablet 00:00: mouth in [place] 00 the Medical morning. Branch docusate Yes [id number] 200mg Take 2 [facility] 100 mg 8-04 capsules [facility]y of capsule 00:00: by mouth [place] 00 once daily Medical as needed Branch for Constipati on. ibuprofen Yes [id number] 600mg Take 1 [facility] 600 mg 8-04 tablet by [facility] of tablet 00:00: mouth [place] 00 every 6 Medical (six) Branch hours as needed (Pain). Take with food or milk. acetaminoph 0 Yes [id number] 650mg Take 2 [facility] 325 mg 8-04 tablets by [facility] of tablet 00:00: mouth [place] 00 every 6 Medical (six) Branch hours as needed for Pain (scale 1-3) or Pain (scale 4-6). 0 Yes [id number] 1{tbl} Take 1 [facility] vitamin 8-04 tablet by [facility] of w/FA tablet 00:00: mouth in [place] 00 the Medical morning. Branch docusate 0 Yes [id number] 200mg Take 2 [facility] 100 mg 8-04 capsules [facility]y of capsule 00:00: by mouth [place] 00 once daily Medical as needed Branch for Constipati on. ibuprofen 2021-0 Yes [id number] 600mg Take 1 [facility] 600 mg 8-04 tablet by [facility] of tablet 00:00: mouth [place] 00 every 6 Medical (six) Branch hours as needed (Pain). Take with food or milk. acetaminoph 2021-0 Yes [id number] 650mg Take 2 [facility] 325 mg 8-04 tablets by [facility] of tablet 00:00: mouth [place] 00 every 6 Medical (six) Branch hours as needed for Pain (scale 1-3) or Pain (scale 4-6). 2021-0 Yes [id number] 1{tbl} Take 1 [facility] vitamin 8-04 tablet by [facility] of w/FA tablet 00:00: mouth in [place] 00 the Medical morning. Branch docusate 0 Yes [id number] 200mg Take 2 [facility] 100 mg 8-04 capsules it[facility] of capsule 00:00: by mouth [place] 00 once daily Medical as needed Branch for Constipati on. ibuprofen 0 Yes [id number] 600mg Take 1 [facility] 600 mg 8-04 tablet by [facility] of tablet 00:00: mouth [place] 00 every 6 Medical (six) Branch hours as needed (Pain). Take with food or milk. acetaminoph 0 Yes [id number] 650mg Take 2 [facility] 325 mg 8-04 tablets by [facility] of tablet 00:00: mouth [place] 00 every 6 Medical (six) Branch hours as needed for Pain (scale 1-3) or Pain (scale 4-6). 2021-0 Yes [id number] 1{tbl} Take 1 [facility] vitamin 8-04 tablet by [facility] of w/FA tablet 00:00: mouth in [place] 00 the Medical morning. Branch docusate 0 Yes [id number] 200mg Take 2 [facility] 100 mg 8-04 capsules ity of capsule 00:00: by mouth [place] 00 once daily Medical as needed Branch for Constipati on. ibuprofen 2021-0 Yes [id number] 600mg Take 1 [facility] 600 mg 8-04 tablet by [facility] of tablet 00:00: mouth [place] 00 every 6 Medical (six) Branch hours as needed (Pain). Take with food or milk. acetaminoph 2021-0 Yes [id number] 650mg Take 2 [facility] 325 mg 8-04 tablets by [facility] of tablet 00:00: mouth [place] 00 every 6 Medical (six) Branch hours as needed for Pain (scale 1-3) or Pain (scale 4-6). 2021-0 Yes [id number] 1{tbl} Take 1 [facility] vitamin 8-04 tablet by [facility] of w/FA tablet 00:00: mouth in [place] 00 the Medical morning. Branch docusate 2021-0 Yes [id number] 200mg Take 2 [facility] 100 mg 8-04 capsules ity of capsule 00:00: by mouth [place] 00 once daily Medical as needed Branch for Constipati on. ibuprofen 2021-0 Yes [id number] 600mg Take 1 [facility] 600 mg 8-04 tablet by [facility] of tablet 00:00: mouth [place] 00 every 6 Medical (six) Branch hours as needed (Pain). Take with food or milk. acetaminoph 2021-0 Yes [id number] 650mg Take 2 [facility] 325 mg 8-04 tablets by [facility] of tablet 00:00: mouth [place] 00 every 6 Medical (six) Branch hours as needed for Pain (scale 1-3) or Pain (scale 4-6). 2021-0 Yes [id number] 1{tbl} Take 1 [facility] vitamin 8-04 tablet by [facility] of w/FA tablet 00:00: mouth in [place] 00 the Medical morning. Branch docusate 2021-0 Yes [id number] 200mg Take 2 [facility] 100 mg 8-04 capsules ity of capsule 00:00: by mouth [place] 00 once daily Medical as needed Branch for Constipati on. ibuprofen 2021-0 Yes [id number] 600mg Take 1 [facility] 600 mg 8-04 tablet by [facility] of tablet 00:00: mouth [place] 00 every 6 Medical (six) Branch hours as needed (Pain). Take with food or milk. acetaminoph 2021-0 Yes [id number] 650mg Take 2 [facility] 325 mg 8-04 tablets by [facility] of tablet 00:00: mouth [place] 00 every 6 Medical (six) Branch hours as needed for Pain (scale 1-3) or Pain (scale 4-6). 2021-0 Yes [id number] 1{tbl} Take 1 [facility] vitamin 8-04 tablet by [facility] of w/FA tablet 00:00: mouth in [place] 00 the Medical morning. Branch docusate 0 Yes [id number] 200mg Take 2 [facility] 100 mg 8-04 capsules ity of capsule 00:00: by mouth [place] 00 once daily Medical as needed Branch for Constipati on. ibuprofen 2021-0 Yes [id number] 600mg Take 1 [facility] 600 mg 8-04 tablet by [facility] of tablet 00:00: mouth [place] 00 every 6 Medical (six) Branch hours as needed (Pain). Take with food or milk. acetaminoph 0 Yes [id number] 650mg Take 2 [facility] en 325 mg 8-04 tablets by ity of tablet 00:00: mouth [place] 00 every 6 Medical (six) Branch hours as needed for Pain (scale 1-3) or Pain (scale 4-6). 2021-0 Yes [id number] 1{tbl} Take 1 [facility] nivers vitamin 8-04 tablet by ity of w/FA tablet 00:00: mouth in [place] 00 the Medical morning. Branch docusate 0 Yes [id number] 200mg Take 2 Un ita 100 mg 8-04 capsules ity of capsule 00:00: by mouth [place] 00 once daily Medical as needed Branch for Constipati on. acetaminoph 0 Yes [id number] 650mg Take 2 [facility] en 325 mg 8-04 tablets by ity of tablet 00:00: mouth [place] 00 every 6 Medical (six) Branch hours as needed for Pain (scale 1-3) or Pain (scale 4-6). 2021-0 Yes [id number] 1{tbl} Take 1 [facility] vitamin 8-04 tablet by [facility]y of w/FA tablet 00:00: mouth in [place] 00 the Medical morning. Branch docusate 0 Yes [id number] 200mg Take 2 Un ita 100 mg 8-04 capsules ity of capsule 00:00: by mouth [place] 00 once daily Medical as needed Branch for Constipati on. acetaminoph 2021-0 Yes [id number] 650mg Take 2 [facility] en 325 mg 8-04 tablets by ity of tablet 00:00: mouth [place] 00 every 6 Medical (six) Branch hours as needed for Pain (scale 1-3) or Pain (scale 4-6). 2021-0 Yes [id number] 1{tbl} Take 1 [facility]ivers vitamin 8-04 tablet by ity of w/FA tablet 00:00: mouth in [place] 00 the Medical morning. Branch docusate 0 Yes [id number] 200mg Take 2 [facility] ita 100 mg 8-04 capsules ity of capsule 00:00: by mouth [place] 00 once daily Medical as needed Branch for Constipati on. acetaminoph 0 Yes [id number] 650mg Take 2 [facility] en 325 mg 8-04 tablets by ity of tablet 00:00: mouth [place] 00 every 6 Medical (six) Branch hours as needed for Pain (scale 1-3) or Pain (scale 4-6). Yes [id number] 1{tbl} Take 1 [facility]ivers vitamin 8-04 tablet by [facility]y of w/FA tablet 00:00: mouth in [place] 00 the Medical morning. Branch docusate Yes [id number] 200mg Take 2 [facility] ita 100 mg 8-04 capsules ity of capsule 00:00: by mouth [place] 00 once daily Medical as needed Branch for Constipati on. acetaminoph Yes [id number] 650mg Take 2 [facility] en 325 mg 8-04 tablets by ity of tablet 00:00: mouth [place] 00 every 6 Medical (six) Branch hours as needed for Pain (scale 1-3) or Pain (scale 4-6). Yes [id number] 1{tbl} Take 1 [facility]ivers vitamin 8-04 tablet by ity of w/FA tablet 00:00: mouth in [place] 00 the Medical morning. Branch docusate 0 Yes [id number] 200mg Take 2 [facility] 100 mg 8-04 capsules ity of capsule 00:00: by mouth [place] 00 once daily Medical as needed Branch for Constipati on. acetaminoph 0 Yes [id number] 650mg Take 2 [facility] en 325 mg 8-04 tablets by ity of tablet 00:00: mouth [place] 00 every 6 Medical (six) Branch hours as needed for Pain (scale 1-3) or Pain (scale 4-6). 2021-0 Yes [id number] 1{tbl} Take 1 [facility] vitamin 8-04 tablet by [facility] of w/FA tablet 00:00: mouth in [place] 00 the Medical morning. Branch docusate 0 Yes [id number] 200mg Take 2 [facility] ita 100 mg 8-04 capsules ity of capsule 00:00: by mouth [place] 00 once daily Medical as needed Branch for Constipati on. acetaminoph 0 Yes [id number] 650mg Take 2 [facility] en 325 mg 8-04 tablets by ity of tablet 00:00: mouth [place] 00 every 6 Medical (six) Branch hours as needed for Pain (scale 1-3) or Pain (scale 4-6). 0 Yes [id number] 1{tbl} Take 1 [facility] vitamin 8-04 tablet by [facility]y of w/FA tablet 00:00: mouth in [place] 00 the Medical morning. Branch docusate 0 Yes [id number] 200mg Take 2 [facility] 100 mg 8-04 capsules ity of capsule 00:00: by mouth [place] 00 once daily Medical as needed Branch for Constipati on. acetaminoph 0 Yes [id number] 650mg Take 2 [facility] en 325 mg 8-04 tablets by ity of tablet 00:00: mouth [place] 00 every 6 Medical (six) Branch hours as needed for Pain (scale 1-3) or Pain (scale 4-6). 0 Yes [id number] 1{tbl} Take 1 [facility] vitamin 8-04 tablet by [facility]y of w/FA tablet 00:00: mouth in [place] 00 the Medical morning. Branch docusate 0 Yes [id number] 200mg Take 2 [facility] 100 mg 8-04 capsules ity of capsule 00:00: by mouth [place] 00 once daily Medical as needed Branch for Constipati on. acetaminoph 0 Yes [id number] 650mg Take 2 [facility] en 325 mg 8-04 tablets by ity of tablet 00:00: mouth [place] 00 every 6 Medical (six) Branch hours as needed for Pain (scale 1-3) or Pain (scale 4-6). 2021-0 Yes [id number] 1{tbl} Take 1 [facility] vitamin 8-04 tablet by ity of w/FA tablet 00:00: mouth in [place] 00 the Medical morning. Branch docusate 0 Yes [id number] 200mg Take 2 [facility] 100 mg 8-04 capsules ity of capsule 00:00: by mouth [place] 00 once daily Medical as needed Branch for Constipati on. acetaminoph 0 Yes [id number] 650mg Take 2 [facility] en 325 mg 8-04 tablets by ity of tablet 00:00: mouth [place] 00 every 6 Medical (six) Branch hours as needed for Pain (scale 1-3) or Pain (scale 4-6). 2021-0 Yes [id number] 1{tbl} Take 1 [facility] vitamin 8-04 tablet by ity of w/FA tablet 00:00: mouth in [place] 00 the Medical morning. Branch docusate 0 Yes [id number] 200mg Take 2 [facility] 100 mg 8-04 capsules ity of capsule 00:00: by mouth [place] 00 once daily Medical as needed Branch for Constipati on. acetaminoph 0 Yes [id number] 650mg Take 2 [facility] en 325 mg 8-04 tablets by ity of tablet 00:00: mouth [place] 00 every 6 Medical (six) Branch hours as needed for Pain (scale 1-3) or Pain (scale 4-6). 2021-0 Yes [id number] 1{tbl} Take 1 [facility] vitamin 8-04 tablet by [facility]y of w/FA tablet 00:00: mouth in [place] 00 the Medical morning. Branch docusate 0 Yes [id number] 200mg Take 2 [facility] 100 mg 8-04 capsules ity of capsule 00:00: by mouth [place] 00 once daily Medical as needed Branch for Constipati on. acetaminoph 0 Yes [id number] 650mg Take 2 [facility] en 325 mg 8-04 tablets by ity of tablet 00:00: mouth [place] 00 every 6 Medical (six) Branch hours as needed for Pain (scale 1-3) or Pain (scale 4-6). 2021-0 Yes [id number] 1{tbl} Take 1 [facility] vitamin 8-04 tablet by [facility]y of w/FA tablet 00:00: mouth in [place] 00 the Medical morning. Branch docusate 2021-0 Yes [id number] 200mg Take 2 [facility] 100 mg 8-04 capsules ity of capsule 00:00: by mouth [place] 00 once daily Medical as needed Branch for Constipati on. acetaminoph 2021-0 Yes [id number] 650mg Take 2 [facility] en 325 mg 8-04 tablets by ity of tablet 00:00: mouth [place] 00 every 6 Medical (six) Branch hours as needed for Pain (scale 1-3) or Pain (scale 4-6). 2021-0 Yes [id number] 1{tbl} Take 1 [facility] vitamin 8-04 tablet by ity of w/FA tablet 00:00: mouth in [place] 00 the Medical morning. Branch docusate 0 Yes [id number] 200mg Take 2 [facility] 100 mg 8-04 capsules ity of capsule 00:00: by mouth [place] 00 once daily Medical as needed Branch for Constipati on. acetaminoph 0 Yes [id number] 650mg Take 2 [facility] en 325 mg 8-04 tablets by ity of tablet 00:00: mouth [place] 00 every 6 Medical (six) Branch hours as needed for Pain (scale 1-3) or Pain (scale 4-6). 0 Yes [id number] 1{tbl} Take 1 [facility] vitamin 8-04 tablet by ity of w/FA tablet 00:00: mouth in [place] 00 the Medical morning. Branch docusate 0 Yes [id number] 200mg Take 2 [facility] 100 mg 8-04 capsules ity of capsule 00:00: by mouth [place] 00 once daily Medical as needed Branch for Constipati on. acetaminoph 0 Yes [id number] 650mg Take 2 [facility] en 325 mg 8-04 tablets by ity of tablet 00:00: mouth [place] 00 every 6 Medical (six) Branch hours as needed for Pain (scale 1-3) or Pain (scale 4-6). 0 Yes [id number] 1{tbl} Take 1 [facility] vitamin 8-04 tablet by ity of w/FA tablet 00:00: mouth in [place] 00 the Medical morning. Branch docusate 0 Yes [id number] 200mg Take 2 [facility]a 100 mg 8-04 capsules ity of capsule 00:00: by mouth [place] 00 once daily Medical as needed Branch for Constipati on. acetaminoph 0 Yes [id number] 650mg Take 2 [facility] en 325 mg 8-04 tablets by ity of tablet 00:00: mouth [place] 00 every 6 Medical (six) Branch hours as needed for Pain (scale 1-3) or Pain (scale 4-6). 2021-0 Yes [id number] 1{tbl} Take 1 [facility] vitamin 8-04 tablet by ity of w/FA tablet 00:00: mouth in [place] 00 the Medical morning. Branch docusate 0 Yes [id number] 200mg Take 2 [facility] 100 mg 8-04 capsules ity of capsule 00:00: by mouth [place] 00 once daily Medical as needed Branch for Constipati on. acetaminoph 0 Yes [id number] 650mg Take 2 [facility] en 325 mg 8-04 tablets by ity of tablet 00:00: mouth [place] 00 every 6 Medical (six) Branch hours as needed for Pain (scale 1-3) or Pain (scale 4-6). 2021-0 Yes [id number] 1{tbl} Take 1 [facility] vitamin 8-04 tablet by [facility]y of w/FA tablet 00:00: mouth in [place] 00 the Medical morning. Branch docusate 0 Yes [id number] 200mg Take 2 [facility] 100 mg 8-04 capsules ity of capsule 00:00: by mouth [place] 00 once daily Medical as needed Branch for Constipati on. acetaminoph 0 Yes [id number] 650mg Take 2 [facility] en 325 mg 8-04 tablets by ity of tablet 00:00: mouth [place] 00 every 6 Medical (six) Branch hours as needed for Pain (scale 1-3) or Pain (scale 4-6). 2021-0 Yes [id number] 1{tbl} Take 1 [facility] vitamin 8-04 tablet by ity of w/FA tablet 00:00: mouth in [place] 00 the Medical morning. Branch docusate 0 Yes [id number] 200mg Take 2 [facility] 100 mg 8-04 capsules ity of capsule 00:00: by mouth [place] 00 once daily Medical as needed Branch for Constipati on. acetaminoph 0 Yes [id number] 650mg Take 2 [facility] en 325 mg 8-04 tablets by ity of tablet 00:00: mouth [place] 00 every 6 Medical (six) Branch hours as needed for Pain (scale 1-3) or Pain (scale 4-6). 2021-0 Yes [id number] 1{tbl} Take 1 [facility] vitamin 8-04 tablet by ity of w/FA tablet 00:00: mouth in [place] 00 the Medical morning. Branch docusate 0 Yes [id number] 200mg Take 2 [facility] 100 mg 8-04 capsules ity of capsule 00:00: by mouth [place] 00 once daily Medical as needed Branch for Constipati on. acetaminoph 0 Yes [id number] 650mg Take 2 [facility] en 325 mg 8-04 tablets by ity of tablet 00:00: mouth [place] 00 every 6 Medical (six) Branch hours as needed for Pain (scale 1-3) or Pain (scale 4-6). Yes [id number] 1{tbl} Take 1 [facility] vitamin 8-04 tablet by ity of w/FA tablet 00:00: mouth in [place] 00 the Medical morning. Branch docusate 0 Yes [id number] 200mg Take 2 [facility] 100 mg 8-04 capsules ity of capsule 00:00: by mouth [place] 00 once daily Medical as needed Branch for Constipati on. acetaminoph 0 Yes [id number] 650mg Take 2 [facility] en 325 mg 8-04 tablets by ity of tablet 00:00: mouth [place] 00 every 6 Medical (six) Branch hours as needed for Pain (scale 1-3) or Pain (scale 4-6). 0 Yes [id number] 1{tbl} Take 1 [facility] vitamin 8-04 tablet by ity of w/FA tablet 00:00: mouth in [place] 00 the Medical morning. Branch docusate 0 Yes [id number] 200mg Take 2 [facility] 100 mg 8-04 capsules ity of capsule 00:00: by mouth [place] 00 once daily Medical as needed Branch for Constipati on. acetaminoph 0 Yes [id number] 650mg Take 2 [facility] en 325 mg 8-04 tablets by ity of tablet 00:00: mouth [place] 00 every 6 Medical (six) Branch hours as needed for Pain (scale 1-3) or Pain (scale 4-6). 2021-0 Yes [id number] 1{tbl} Take 1 [facility] vitamin 8-04 tablet by ity of w/FA tablet 00:00: mouth in [place] 00 the Medical morning. Branch docusate 0 Yes [id number] 200mg Take 2 [facility] 100 mg 8-04 capsules ity of capsule 00:00: by mouth [place] 00 once daily Medical as needed Branch for Constipati on. acetaminoph 0 Yes [id number] 650mg Take 2 [facility] en 325 mg 8-04 tablets by ity of tablet 00:00: mouth [place] 00 every 6 Medical (six) Branch hours as needed for Pain (scale 1-3) or Pain (scale 4-6). 0 Yes [id number] 1{tbl} Take 1 [facility] vitamin 8-04 tablet by ity of w/FA tablet 00:00: mouth in [place] 00 the Medical morning. Branch docusate 0 Yes [id number] 200mg Take 2 [facility] 100 mg 8-04 capsules ity of capsule 00:00: by mouth [place] 00 once daily Medical as needed Branch for Constipati on. acetaminoph 0 Yes [id number] 650mg Take 2 [facility] en 325 mg 8-04 tablets by ity of tablet 00:00: mouth [place] 00 every 6 Medical (six) Branch hours as needed for Pain (scale 1-3) or Pain (scale 4-6). 0 Yes [id number] 1{tbl} Take 1 [facility] vitamin 8-04 tablet by ity of w/FA tablet 00:00: mouth in [place] 00 the Medical morning. Branch docusate 0 Yes [id number] 200mg Take 2 [facility] 100 mg 8-04 capsules ity of capsule 00:00: by mouth [place] 00 once daily Medical as needed Branch for Constipati on. acetaminoph 0 Yes [id number] 650mg Take 2 [facility] en 325 mg 8-04 tablets by ity of tablet 00:00: mouth [place] 00 every 6 Medical (six) Branch hours as needed for Pain (scale 1-3) or Pain (scale 4-6). 2021-0 Yes [id number] 1{tbl} Take 1 [facility] vitamin 8-04 tablet by ity of w/FA tablet 00:00: mouth in [place] 00 the Medical morning. Branch docusate 0 Yes [id number] 200mg Take 2 [facility] ita 100 mg 8-04 capsules ity of capsule 00:00: by mouth [place] 00 once daily Medical as needed Branch for Constipati on. acetaminoph 2022- No [id number] 650mg Take 2 [facility] en 325 mg 8- 08-15 tablets by ity of tablet 00:00: 00:00 mouth [place] 00 :00 every 6 Medical (six) Branch hours as needed for Pain (scale 1-3) or Pain (scale 4-6). 2022- No [id number] 1{tbl} Take 1 [facility] vitamin 8-04 08-15 tablet by ity of w/FA tablet 00:00: 00:00 mouth in [place] 00 :00 the Medical morning. Branch docusate 2022- No [id number] 200mg Take 2 [facility] nivers 100 mg 8- 08-15 capsules ity of capsule 00:00: 00:00 by mouth [place] 00 :00 once daily Medical as needed Branch for Constipati on. acetaminoph 2022- No [id number] 650mg Take 2 [facility] en 325 mg 8- 08-15 tablets by ity of tablet 00:00: 00:00 mouth [place] 00 :00 every 6 Medical (six) Branch hours as needed for Pain (scale 1-3) or Pain (scale 4-6). 2022- No [id number] 1{tbl} Take 1 [facility] vitamin 8-04 08-15 tablet by ity of w/FA tablet 00:00: 00:00 mouth in [place] 00 :00 the Medical morning. Branch docusate 2022- No [id number] 200mg Take 2 [facility] nivers 100 mg 8- 08-15 capsules ity of capsule 00:00: 00:00 by mouth [place] 00 :00 once daily Medical as needed Branch for Constipati on. ibuprofen 2022- No [id number] 600mg Take 1 [facility] 600 mg 8- 06-20 tablet by ity of tablet 00:00: 00:00 mouth [place] 00 :00 every 6 Medical (six) Branch hours as needed (Pain). Take with food or milk. ferrous 2022- No [id number] 325mg Take 1 Un [facility] sulfate 325 8- 05-17 tablet by it y of mg (65 mg 00:00: 00:00 mouth in [place] iron) 00 :00 the Medical tablet morning Branch and 1 tablet in the evening. ferrous 2022- No [id number] 325mg Take 1 [facility] sulfate 325 09-28- tablet by it y of mg (65 mg 00:00: 00:00 mouth in [place] iron) 00 :00 the Medical tablet morning Branch and 1 tablet in the evening. Nitrofurant 2021- No [id number] 100mg Take 1 [facility] oin&Nit. 06-06- capsule by ity of Macrocryst 00:00: 00:00 mouth 2 [place] 100 mg 00 :00 (two) Medical capsule times Branch daily. famotidine 2021- No [id number] 20mg Take 1 [facility] (PEPCID) 20 06-06- tablet by it y of mg tablet 00:00: 00:00 mouth [place] :[place] (two) Medical times Branch daily. metoclopram 2021- No [id number] 10mg Take 1 [facility] jacob HCl 10 06-06- tablet by ity of mg tablet 00:00: 00:00 mouth [place] 00 :00 every 6 Medical (six) Branch hours as needed for Nausea and Vomiting (N/V) or Gastroesop hageal reflux. Nitrofurant 2021- No [id number] 100mg Take 1 [facility] oin&Nit. 06-06- capsule by ity of Macrocryst 00:00: 00:00 mouth 2 [place] 100 mg 00 :00 (two) Medical capsule times Branch daily. famotidine 2021- No [id number] 20mg Take 1 [facility] (PEPCID) 20 -02 01-04 tablet by it y of mg tablet 00:00: 00:00 mouth [place] 00 :00 (two) Medical times Branch daily. metoclopram 2021- No [id number] 10mg Take 1 [facility] jacob HCl 10 4-12 08-04 tablet by ity of mg tablet 00:00: 00:00 mouth [place] 00 :00 every 6 Medical (six) Branch hours as needed for Nausea and Vomiting (N/V) or Gastroesop hageal reflux. aspirin 81 2021- No [id number] 81mg Take 1 [facility] mg EC 2-25 08-04 tablet by ity of tablet 00:00: 00:00 mouth [place] 00 :00 daily. Medical Branch aspirin 81 2021- No [id number] 81mg Take 1 [facility] mg EC 04-21- tablet by ity of tablet 00:00: 00:00 mouth [place] 00 :00 daily. Medical Branch aspirin 81 2021- No [id number] 81mg Take 1 [facility] mg EC 04-21- tablet by ity of tablet 00:00: 00:00 mouth [place] 00 :00 daily. Medical Branch ferrous 2021- No [id number] 325mg Take 1 Un ita sulfate 04-07- tablet by ity of (IRON, 00:00: 00:00 mouth 2 [place] FERROUS 00 :00 (two) Medical SULFATE,) times Branch 325 mg (65 daily. mg iron) tablet ferrous No [id number] 325mg Take 1 Un ita sulfate 04-07- tablet by ity of (IRON, 00:00: 00:00 mouth 2 [place] FERROUS 00 :00 (two) Medical SULFATE,) times Branch 325 mg (65 daily. mg iron) tablet ferrous No [id number] 325mg Take 1 Un [facility]a sulfate 04-07- tablet by ity of (IRON, 00:00: 00:00 mouth 2 [place] FERROUS 00 :00 (two) Medical SULFATE,) times Branch 325 mg (65 daily. mg iron) tablet 2019-02 No [id number] 1{tbl} Take 1 [facility] vit w/iron 03-15-12 tablet by ity of fumarate 00:00: 00:00 mouth [place] and [place] 00 :00 daily. Medical ( Branch VITAMIN WITH MINERALS) tablet 2019-02 No [id number] 1{tbl} Take 1 [facility] vit w/iron 03-15 05-12 tablet by ity of fumarate 00:00: 00:00 mouth [place] and [place] 00 :00 daily. Medical ( Branch VITAMIN WITH MINERALS) tablet 2019-02 No [id number] 1{tbl} Take 1 [facility] vit w/iron 03-15 05-12 tablet by ity of fumarate 00:00: 00:00 mouth [place] and [place] 00 :00 daily. Medical ( Branch VITAMIN WITH MINERALS) tablet Immunizations Ordered Filled Date Status Comments Source Immunization Name Immunization Name TDAP 2022-07-30 Completed [facility] 00:00:00 [facility] TDAP 2022-07-30 Completed [facility] 00:00:00 [facility] TDAP 2022-07-30 Completed [facility] 00:00:00 [facility] TDAP 2022-07-30 Completed [facility] 00:00:00 [facility] TDAP 2022-07-30 Completed [facility] 00:00:00 [facility] TDAP 2022-07-30 Completed [facility] of 00:00:00 [facility] TDAP 2022-07-30 Completed [facility] 00:00:00 [facility] TDAP 2022-07-30 Completed [facility] of 00:00:00 [facility] TDAP 2022-07-30 Completed [facility] of 00:00:00 [facility] TDAP 2022-07-30 Completed [facility] of 00:00:00 [facility] TDAP 2022-07-30 Completed [facility] 00:00:00 [facility] TDAP 2022-07-30 Completed [facility] of 00:00:00 [facility] TDAP 2022-07-30 Completed [facility] of 00:00:00 [facility] TDAP 2022-07-30 Completed [facility] of 00:00:00 [facility] TDAP 2022-07-30 Completed [facility] of 00:00:00 [facility] TDAP 2022-07-30 Completed [facility] of 00:00:00 [facility] TDAP 2022-07-30 Completed [facility] of 00:00:00 [facility] TDAP 2022-07-30 Completed [facility] of 00:00:00 [facility] TDAP 2022-07-30 Completed [facility] of 00:00:00 [facility] TDAP 2022-07-30 Completed [facility] of 00:00:00 [facility] TDAP 2022-07-30 Completed [facility] of 00:00:00 [facility] TDAP 2022-07-30 Completed [facility] of 00:00:00 [facility] TDAP 2022-07-30 Completed [facility] of 00:00:00 [facility] TDAP 2022-07-30 Completed [facility] of 00:00:00 [facility] TDAP 2022-07-30 Completed [facility] of 00:00:00 [facility] TDAP 2022-07-30 Completed [facility] of 00:00:00 [place] [facility] TDAP 2022-07-30 Completed [facility] 00:00:00 [place] [facility] TDAP 2022-07-30 Completed [facility] 00:00:00 [place] [facility] TDAP 2022-07-30 Completed [facility] 00:00:00 [place] [facility] TDAP 2022-07-30 Completed [facility] 00:00:00 [place] [facility] TDAP 2022-07-30 Completed [facility] of 00:00:00 [place] [facility] TDAP 2022-07-30 Completed [facility] 00:00:00 [place] [facility] TDAP 2022-07-30 Completed [facility] 00:00:00 [place] [facility] TDAP 2022-07-30 Completed [facility] 00:00:00 [place] [facility] TDAP 2021-08-03 Completed [facility] 00:00:00 [place] [facility] TDAP 2021-08-03 Completed [facility] of 00:00:00 [facility] TDAP 2021-08-03 Completed [facility] of 00:00:00 [facility] TDAP 2021-08-03 Completed University of 00:00:00 [place] [facility] TDAP 2021-08-03 Completed [facility] of 00:00:00 [facility] TDAP 2021-08-03 Completed University of 00:00:00 [place] [facility] TDAP 2021-08-03 Completed [facility] 00:00:00 [place] [facility] TDAP 2021-08-03 Completed [facility] 00:00:00 [place] [facility] TDAP 2021-08-03 Completed [facility] of 00:00:00 [facility] TDAP 2021-08-03 Completed [facility] of 00:00:00 [place] [facility] TDAP 2021-08-03 Completed [facility] 00:00:00 [place] [facility] TDAP 2021-08-03 Completed [facility] 00:00:00 [place] [facility] TDAP 2021-08-03 Completed [facility] 00:00:00 [place] [facility] TDAP 2021-08-03 Completed [facility] 00:00:00 [place] [facility] TDAP 2021-08-03 Completed [facility] of 00:00:00 [place] [facility] TDAP 2021-08-03 Completed [facility] of 00:00:00 [facility] TDAP 2021-08-03 Completed University of 00:00:00 [place] [facility] TDAP 2021-08-03 Completed [facility] of 00:00:00 [facility] TDAP 2021-08-03 Completed [facility] of 00:00:00 [place] [facility] TDAP 2021-08-03 Completed [facility] 00:00:00 [place] [facility] TDAP 2021-08-03 Completed [facility] of 00:00:00 [place] [facility] TDAP 2021-08-03 Completed [facility] 00:00:00 [place] [facility] TDAP 2021-08-03 Completed [facility] of 00:00:00 [place] [facility] TDAP 2021-08-03 Completed [facility] of 00:00:00 [place] [facility] TDAP 2021-08-03 Completed [facility] 00:00:00 [place] [facility] TDAP 2021-08-03 Completed [facility] of 00:00:00 [place] [facility] TDAP 2021-08-03 Completed [facility] 00:00:00 [place] [facility] TDAP 2021-08-03 Completed [facility] 00:00:00 [facility] [place] TDAP 2021-08-03 Completed [facility] 00:00:00 [place] [facility] TDAP 2021-08-03 Completed [facility] 00:00:00 [facility] TDAP 2021-08-03 Completed [facility] 00:00:00 [place] [facility] TDAP 2021-08-03 Completed [facility] 00:00:00 [place] [facility] TDAP 2021-08-03 Completed [facility] 00:00:00 [place] [facility] TDAP 2021-08-03 Completed [facility] of 00:00:00 [place] [facility] TDAP 2021-08-03 Completed [facility] of 00:00:00 [facility] TDAP 2021-08-03 Completed University of 00:00:00 [place] [facility] TDAP 2021-08-03 Completed [facility] of 00:00:00 [place] [facility] TDAP 2021-08-03 Completed [facility] 00:00:00 [place] [facility] TDAP 2021-08-03 Completed [facility] 00:00:00 [place] [facility] TDAP 2021-08-03 Completed [facility] 00:00:00 [place] [facility] TDAP 2021-08-03 Completed [facility] 00:00:00 [place] [facility] TDAP 2021-08-03 Completed [facility] of 00:00:00 [facility] TDAP 2021-08-03 Completed University of 00:00:00 [place] [facility] TDAP 2021-08-03 Completed [facility] 00:00:00 [facility] [place] TDAP 2021-08-03 Completed [facility] 00:00:00 [facility] TDAP 2021-08-03 Completed [facility] 00:00:00 [place] [facility] TDAP 2021-08-03 Completed [facility] 00:00:00 [place] [facility] TDAP 2021-08-03 Completed [facility] 00:00:00 [place] [facility] TDAP 2021-08-03 Completed [facility] of 00:00:00 [facility] TDAP 2021-08-03 Completed University of 00:00:00 [place] [facility] TDAP 2021-08-03 Completed [facility] of 00:00:00 [place] [facility] TDAP 2021-08-03 Completed [facility] 00:00:00 [place] [facility] TDAP 2021-08-03 Completed [facility] of 00:00:00 [place] [facility] TDAP 2021-08-03 Completed [facility] 00:00:00 [facility] [place] TDAP 2021-08-03 Completed [facility] of 00:00:00 [facility] TDAP 2021-08-03 Completed [facility] of 00:00:00 [facility] TDAP 2021-08-03 Completed [facility] of 00:00:00 [facility] [place] TDAP 2021-08-03 Completed University of 00:00:00 [facility] TDAP 2021-08-03 Completed [facility] 00:00:00 [facility] TDAP 2021-08-03 Completed [facility] 00:00:00 [facility] TDAP 2021-08-03 Completed [facility] 00:00:00 [facility] TDAP 2020-06-14 Completed [facility] 00:00:00 [facility] TDAP 2020-06-14 Completed [facility] 00[facility]00:00 [facility] TDAP 2020-06-14 Completed [facility] 00:00:00 [facility] TDAP 2020-06-14 Completed [facility] 00:00:00 [facility] TDAP 2020-06-14 Completed [facility] 00:00:00 [facility] TDAP 2020-06-14 Completed [facility] 00:00:00 [facility] TDAP 2020-06-14 Completed [facility] 00:00:00 [facility] TDAP 2020-06-14 Completed [facility] 00:00:00 [facility] TDAP 2020-06-14 Completed [facility] 00:00:00 [facility] TDAP 2020-06-14 Completed [facility] 00:00:00 [facility] TDAP 2020-06-14 Completed [facility] 00:00:00 [facility] TDAP 2020-06-14 Completed [facility] 00:00:00 [facility] TDAP 2020-06-14 Completed [facility] 00:00:00 [facility] TDAP 2020-06-14 Completed [facility] 00:00:00 [facility] TDAP 2020-06-14 Completed [facility] 00:00:00 [facility] TDAP 2020-06-14 Completed [facility] 00:00:00 [facility] TDAP 2020-06-14 Completed [facility] 00:00:00 [facility] TDAP 2020-06-14 Completed [facility] 00:00:00 [facility] TDAP 2020-06-14 Completed [facility] 00:00:00 [facility] TDAP 2020-06-14 Completed [facility] 00:00:00 [facility] TDAP 2020-06-14 Completed [facility] 00:00:00 [facility] TDAP 2020-06-14 Completed [facility] 00:00:00 [facility] TDAP 2020-06-14 Completed [facility] 00:00:00 [facility] TDAP 2020-06-14 Completed [facility] 00:00:00 [facility] TDAP 2020-06-14 Completed [facility] 00:00:00 [facility] TDAP 2020-06-14 Completed [facility] 00:00:00 [facility] TDAP 2020-06-14 Completed [facility] 00:00:00 [facility] TDAP 2020-06-14 Completed [facility] 00:00:00 [facility] TDAP 2020-06-14 Completed [facility] 00[facility]00:00 [facility] TDAP 2020-06-14 Completed [facility] 00:00:00 [facility] TDAP 2020-06-14 Completed [facility] 00:00:00 [facility] TDAP 2020-06-14 Completed [facility] 00:00:00 [facility] TDAP 2020-06-14 Completed [facility] 00:00:00 [facility] TDAP 2020-06-14 Completed [facility] 00:00:00 [facility] TDAP 2020-06-14 Completed [facility] 00:00:00 [facility] TDAP 2020-06-14 Completed [facility] 00:00:00 [facility] TDAP 2020-06-14 Completed [facility] 00:00:00 [facility] TDAP 2020-06-14 Completed [facility] 00:00:00 [facility] TDAP 2020-06-14 Completed [facility] 00:00:00 [facility] TDAP 2020-06-14 Completed [facility] 00:00:00 [facility] TDAP 2020-06-14 [facility]00 [facility] TDAP 2020-06-14 Completed [facility] 00:00:00 [facility] TDAP 2020-06-14 Com[facility] 00:00:00 [facility] TDAP 2020-06-14 Completed [facility] 00:00:00 [facility] TDAP 2020-06-14 Completed [facility] 00:00:00 [facility] TDAP 2020-06-14 Completed [facility] 00:00:00 [facility] TDAP 2020-06-14 Completed [facility] 00:00:00 [facility] TDAP 2020-06-14 Completed [facility] 00:00:00 [facility] TDAP 2020-06-14 Completed [facility] 00:00:00 [facility] TDAP 2020-06-14 Completed [facility] 00:00:00 [facility] TDAP 2020-06-14 Completed [facility] 00:00:00 [facility] TDAP 2020-06-14 Completed [facility] 00:00:00 [facility] TDAP 2020-06-14 Completed [facility] 00:00:00 [facility] TDAP 2020-06-14 Completed [facility] 00:00:00 [facility] TDAP 2020-06-14 Completed [facility] 00:00:00 [facility] TDAP 2020-06-14 Completed [facility] 00:00:00 [facility] TDAP 2020-06-14 Completed [facility] 00:00:00 [facility] TDAP 2020-06-14 Completed [facility] 00:00:00 [facility] TDAP 2020-06-14 Completed [facility] 00:00:00 [facility] Influenza Virus 2020-01-14 Completed [facility] .5 mL 00:00:00 [facility] 6+ MO [place] Influenza Virus 2020-01-14 Completed [facility] [...] y of Vaccine Quad .5 mL 00:00:00 [facility] 6+ [facility] HPV9 2017-05-30 Completed [facility] 00:00:00 [facility] HPV9 2017-05-30 Completed [facility] 00:00:00 [facility] HPV9 2017-05-30 Completed [facility] 00:00:00 [facility] HPV9 2017-05-30 Completed [facility] 00:00:00 [facility] HPV9 2017-05-30 Completed [facility] 00:00:00 [facility] HPV9 2017-05-30 Completed [facility] 00:00:00 [facility] HPV9 2017-05-30 Completed [facility] 00:00:00 [facility] HPV9 2017-05-30 Completed [facility] 00:00:00 [facility] HPV9 2017-05-30 Completed [facility] 00:00:00 [facility] HPV9 2017-05-30 Completed [facility] 00:00:00 [facility] HPV9 2017-05-30 Completed [facility] 00:00:00 [facility] HPV9 2017-05-30 Completed [facility] 00:00:00 [facility] HPV9 2017-05-30 Completed [facility] 00:00:00 [facility] HPV9 2017-05-30 Completed [facility] [...] Branch HPV9 2017-05-30 Completed [facility] 00:00:00 [facility] HPV9 2017-05-30 Completed [facility] [...] Branch HPV9 2017-05-30 Completed [facility] 00:00:00 [facility] HPV9 2017-05-30 Completed [facility] 00:00:00 [facility] HPV9 2017-05-30 Completed [facility] 00:00:00 [facility] HPV9 2017-05-30 Completed [facility] 00:00:00 [facility] HPV9 2017-05-30 Completed [facility] 00:00:00 [facility] HPV9 2017-05-30 Completed [facility] 00:00:00 [facility] HPV9 2017-05-30 Completed [facility] 00:00:00 [facility] HPV9 2017-05-30 Completed [facility] 00:00:00 [facility] HPV9 2017-05-30 Completed [facility] 00:00:00 [facility] HPV9 2017-05-30 Completed [facility] 00:00:00 [facility] HPV9 2017-05-30 Completed [facility] 00:00:00 [facility] HPV9 2017-05-30 Completed [facility] 00:00:00 [facility] HPV9 2017-05-30 Completed [facility] 00:00:00 [facility] HPV9 2017-05-30 Completed [facility] 00:00:00 [facility] HPV9 2017-05-30 Completed [facility] 00:00:00 [facility] HPV9 2017-05-30 Completed [facility] 00:00:00 [facility] HPV9 2017-05-30 Completed [facility] 00:00:00 [facility] HPV9 2017-05-30 Completed [facility] 00:00:00 [facility] HPV9 2017-05-30 Completed [facility] 00:00:00 [facility] HPV9 2016-03-19 Completed [facility] 00:00:00 [facility] HPV9 2016-03-19 Completed [facility] 00:00:00 [facility] HPV9 2016-03-19 Completed [facility] 00:00:00 [facility] HPV9 2016-03-19 Completed [facility] 00:00:00 [facility] HPV9 2016-03-19 Completed [facility] 00:00:00 [facility] HPV9 2016-03-19 Completed [facility] 00:00:00 [facility] HPV9 2016-03-19 Completed [facility] 00:00:00 [facility] HPV9 2016-03-19 Completed [facility] 00:00:00 [facility] HPV9 2016-03-19 Completed [facility] 00:00:00 [facility] HPV9 2016-03-19 Completed [facility] 00:00:00 [facility] HPV9 2016-03-19 Completed [facility] 00:00:00 [facility] HPV9 2016-03-19 Completed [facility] 00:00:00 [facility] HPV9 2016-03-19 Completed [facility] 00:00:00 [facility] HPV9 2016-03-19 Completed [facility] 00:00:00 [facility] HPV9 2016-03-19 Completed [facility] 00:00:00 [facility] HPV9 2016-03-19 Completed [facility] 00:00:00 [facility] HPV9 2016-03-19 Completed [facility] 00:00:00 [facility] HPV9 2016-03-19 Completed [facility] 00:00:00 [facility] HPV9 2016-03-19 Completed [facility] 00:00:00 [facility] HPV9 2016-03-19 Completed [facility] 00:00:00 [facility] HPV9 2016-03-19 Completed [facility] 00:00:00 [facility] HPV9 2016-03-19 Completed [facility] 00:00:00 [facility] HPV9 2016-03-19 Completed [facility] 00:00:00 [facility] HPV9 2016-03-19 Completed [facility] 00:00:00 [facility] HPV9 2016-03-19 Completed [facility] 00:00:00 [facility] HPV9 2016-03-19 Completed [facility] 00:00:00 [facility] HPV9 2016-03-19 Completed [facility] 00:00:00 [facility] HPV9 2016-03-19 Completed [facility] 00:00:00 [facility] HPV9 2016-03-19 Completed [facility] 00:00:00 [facility] HPV9 2016-03-19 Completed [facility] 00:00:00 [facility] HPV9 2016-03-19 Completed [facility] 00:00:00 [facility] HPV9 2016-03-19 Completed [facility] 00:00:00 [facility] HPV9 2016-03-19 Completed [facility] 00:00:00 [facility] HPV9 2016-03-19 Completed [facility] 00:00:00 [facility] HPV9 2016-03-19 Completed [facility] 00:00:00 [facility] HPV9 2016-03-19 Completed [facility] 00:00:00 [facility] HPV9 2016-03-19 Completed [facility] 00:00:00 [facility] HPV9 2016-03-19 Completed [facility] 00:00:00 [facility] HPV9 2016-03-19 Completed [facility] 00:00:00 [facility] HPV9 2016-03-19 Completed [facility] 00:00:00 [facility] HPV9 2016-03-19 Completed [facility] 00:00:00 [facility] HPV9 2016-03-19 Completed [facility] 00:00:00 [facility] HPV9 2016-03-19 Completed [facility] 00:00:00 [facility] HPV9 2016-03-19 Completed [facility] 00:00:00 [facility] HPV9 2016-03-19 Completed [facility] 00:00:00 [facility] HPV9 2016-03-19 Completed [facility] 00:00:00 [facility] HPV9 2016-03-19 Completed [facility] 00:00:00 [facility] HPV9 2016-03-19 Completed [facility] 00:00:00 [facility] HPV9 2016-03-19 Completed [facility] 00:00:00 [facility] HPV9 2016-03-19 Completed [facility] 00:00:00 [facility] HPV9 2016-03-19 Completed [facility] 00:00:00 [facility] HPV9 2016-03-19 Completed [facility] 00:00:00 [facility] HPV9 2016-03-19 Completed [facility] 00:00:00 [facility] HPV9 2016-03-19 Completed [facility] 00:00:00 [facility] HPV9 2016-03-19 Completed [facility] 00:00:00 [facility] HPV9 2016-03-19 Completed [facility] 00:00:00 [facility] HPV9 2016-03-19 Completed [facility] 00:00:00 [facility] HPV9 2016-03-19 Completed [facility] 00:00:00 [facility] HPV9 2016-03-19 Completed [facility] 00:00:00 [facility] HPV9 2016-03-19 Completed [facility] 00:00:00 [facility] HPV9 2016-03-19 Completed [facility] 00:00:00 [facility] HPV9 2015-11-23 Completed [facility] 00:00:00 [facility] HPV9 2015-11-23 Completed [facility] 00:00:00 [facility] HPV9 2015-11-23 Completed [facility] 00:00:00 [facility] HPV9 2015-11-23 Completed [facility] 00:00:00 [facility] HPV9 2015-11-23 Completed [facility] 00:00:00 [facility] HPV9 2015-11-23 Completed [facility] 00:00:00 [facility] HPV9 2015-11-23 Completed [facility] 00:00:00 [facility] HPV9 2015-11-23 Completed [facility] 00:00:00 [facility] HPV9 2015-11-23 Completed [facility] 00:00:00 [facility] HPV9 2015-11-23 Completed [facility] 00:00:00 [facility] HPV9 2015-11-23 Completed [facility] 00:00:00 [facility] HPV9 2015-11-23 Completed [facility] 00:00:00 [facility] HPV9 2015-11-23 Completed [facility] 00:00:00 [facility] HPV9 2015-11-23 Completed [facility] 00:00:00 [facility] HPV9 2015-11-23 Completed [facility] 00:00:00 [facility] HPV9 2015-11-23 Completed [facility] 00:00:00 [facility] HPV9 2015-11-23 Completed [facility] 00:00:00 [facility] HPV9 2015-11-23 Completed [facility] 00:00:00 [facility] HPV9 2015-11-23 Completed [facility] 00:00:00 [facility] HPV9 2015-11-23 Completed [facility] 00:00:00 [facility] HPV9 2015-11-23 Completed [facility] 00:00:00 [facility] HPV9 2015-11-23 Completed [facility] 00:00:00 [facility] HPV9 2015-11-23 Completed [facility] 00:00:00 [facility] HPV9 2015-11-23 Completed [facility] 00:00:00 [facility] HPV9 2015-11-23 Completed [facility] 00:00:00 [facility] HPV9 2015-11-23 Completed [facility] 00:00:00 [facility] HPV9 2015-11-23 Completed [facility] 00:00:00 [facility] HPV9 2015-11-23 Completed [facility] 00:00:00 [facility] HPV9 2015-11-23 Completed [facility] 00:00:00 [facility] HPV9 2015-11-23 Completed [facility] 00:00:00 [facility] HPV9 2015-11-23 Completed [facility] 00:00:00 [facility] HPV9 2015-11-23 Completed [facility] 00:00:00 [facility] HPV9 2015-11-23 Completed [facility] 00:00:00 [facility] HPV9 2015-11-23 Completed [facility] 00:00:00 [facility] HPV9 2015-11-23 Completed [facility] 00:00:00 [facility] HPV9 2015-11-23 Completed [facility] 00:00:00 [facility] HPV9 2015-11-23 Completed [facility] 00:00:00 [facility] HPV9 2015-11-23 Completed [facility] 00:00:00 [facility] HPV9 2015-11-23 Completed [facility] 00:00:00 [facility] HPV9 2015-11-23 Completed [facility] 00:00:00 [facility] HPV9 2015-11-23 Completed [facility] 00:00:00 [facility] HPV9 2015-11-23 Completed [facility] 00:00:00 [facility] HPV9 2015-11-23 Completed [facility] 00:00:00 [facility] HPV9 2015-11-23 Completed [facility] 00:00:00 [facility] HPV9 2015-11-23 Completed [facility] 00:00:00 [facility] HPV9 2015-11-23 Completed [facility] 00:00:00 [facility] HPV9 2015-11-23 Completed [facility] 00:00:00 [facility] HPV9 2015-11-23 Completed [facility] 00:00:00 [facility] HPV9 2015-11-23 Completed [facility] 00:00:00 [facility] HPV9 2015-11-23 Completed [facility] 00:00:00 [facility] HPV9 2015-11-23 Completed [facility] 00:00:00 [facility] HPV9 2015-11-23 Completed [facility] 00:00:00 [facility] HPV9 2015-11-23 Completed [facility] 00:00:00 [facility] HPV9 2015-11-23 Completed [facility] 00:00:00 [facility] HPV9 2015-11-23 Completed [facility] 00:00:00 [facility] HPV9 2015-11-23 Completed [facility] 00:00:00 [facility] HPV9 2015-11-23 Completed [facility] 00:00:00 [facility] HPV9 2015-11-23 Completed [facility] 00:00:00 [facility] HPV9 2015-11-23 Completed [facility] 00:00:00 [facility] HPV9 2015-11-23 Completed [facility] 00:00:00 [facility] HPV9 2015-11-23 Completed [facility] 00:00:00 [facility] MMR 2011-12-11 Completed [facility] 00:00:00 [facility] MMR 2011-12-11 Completed [facility] 00:00:00 [facility] MMR 2011-12-11 Completed [facility] 00:00:00 [facility] MMR 2011-12-11 Completed [facility] 00[facility]00:00 [facility] MMR 2011-12-11 Completed [facility] 00:00:00 [facility] MMR 2011-12-11 Completed [facility] 00[facility]00:00 [facility] MMR 2011-12-11 Completed [facility] 00[facility]00:00 [facility] TDAP 2011-02-25 Completed [facility] 00:00:00 [facility] TDAP 2011-02-25 Completed [facility] 00[facility]00:00 [facility] TDAP 2011-02-25 Completed [facility] 00:00:00 [facility] TDAP 2011-02-25 Completed [facility] 00[facility]00:00 [facility] TDAP 2011-02-25 Completed [facility] 00:00:00 [facility] TDAP 2011-02-25 Completed [facility] 00[facility]00:00 [facility] TDAP 2011-02-25 Completed [facility] 00:00:00 [facility] TDAP 2011-02-25 Completed [facility] 00[facility]00:00 [facility] TDAP 2011-02-25 Completed [facility] 00:00:00 [facility] TDAP 2011-02-25 Completed [facility] 00:00:00 [facility] TDAP 2011-02-25 Completed [facility] 00:00:00 [facility] TDAP 2011-02-25 Completed [facility] 00:00:00 [facility] TDAP 2011-02-25 Completed [facility] 00:00:00 [facility] TDAP 2011-02-25 Completed [facility] 00:00:00 [facility] TDAP 2011-02-25 Completed [facility] 00:00:00 [facility] TDAP 2011-02-25 Completed [facility] 00:00:00 [facility] TDAP 2011-02-25 Completed [facility] 00:00:00 [facility] TDAP 2011-02-25 Completed [facility] 00:00:00 [facility] TDAP 2011-02-25 Completed [facility] 00:00:00 [facility] TDAP 2011-02-25 Completed [facility] 00:00:00 [facility] TDAP 2011-02-25 Completed [facility] 00:00:00 [facility] TDAP 2011-02-25 Completed [facility] 00:00:00 [facility] TDAP 2011-02-25 Completed [facility] 00:00:00 [facility] TDAP 2011-02-25 Completed [facility] 00:00:00 [facility] TDAP 2011-02-25 Completed [facility] 00:00:00 [facility] TDAP 2011-02-25 Completed [facility] 00:00:00 [facility] TDAP 2011-02-25 Completed [facility] 00:00:00 [facility] TDAP 2011-02-25 Completed [facility] 00:00:00 [facility] TDAP 2011-02-25 Completed [facility] 00:00:00 [facility] TDAP 2011-02-25 Completed [facility] 00:00:00 [facility] TDAP 2011-02-25 Completed [facility] 00:00:00 [facility] TDAP 2011-02-25 Completed [facility] 00[facility]00:00 [facility] TDAP 2011-02-25 Completed [facility] 00[facility]00:00 [facility] TDAP 2011-02-25 Completed [facility] 00:00:00 [facility] TDAP 2011-02-25 Completed [facility] 00:00:00 [facility] TDAP 2011-02-25 Completed [facility] 00[facility]00:00 [facility] TDAP 2011-02-25 Completed [facility] 00:00:00 [facility] TDAP 2011-02-25 Completed [facility] 00:00:00 [facility] TDAP 2011-02-25 Completed [facility] 00:00:00 [facility] TDAP 2011-02-25 Completed [facility] 00:00:00 [facility] TDAP 2011-02-25 Completed [facility] 00:00:00 [facility] TDAP 2011-02-25 Completed [facility] 00:00:00 [facility] TDAP 2011-02-25 Completed [facility] 00:00:00 [facility] TDAP 2011-02-25 Completed [facility] 00:00:00 [facility] TDAP 2011-02-25 Completed [facility] 00:00:00 [facility] TDAP 2011-02-25 Completed [facility] 00:00:00 [facility] TDAP 2011-02-25 Completed [facility] 00[facility]00:00 [facility] TDAP 2011-02-25 Completed [facility] 00:00:00 [facility] TDAP 2011-02-25 Completed [facility] 00:00:00 [facility] TDAP 2011-02-25 Completed [facility] 00:00:00 [facility] TDAP 2011-02-25 Completed [facility] 00:00:00 [facility] TDAP 2011-02-25 Completed [facility] 00:00:00 [facility] TDAP 2011-02-25 Completed [facility] 00:00:00 [facility] TDAP 2011-02-25 Completed [facility] 00:00:00 [facility] TDAP 2011-02-25 Completed [facility] 00:00:00 [facility] TDAP 2011-02-25 Completed [facility] 00:00:00 [facility] TDAP 2011-02-25 Completed [facility] 00:00:00 [facility] TDAP 2011-02-25 Completed [facility] 00:00:00 [facility] TDAP 2011-02-25 Completed [facility] 00:00:00 [facility] TDAP 2011-02-25 Completed [facility] 00:00:00 [facility] TDAP 2011-02-25 Completed [facility] 00:00:00 [facility] TDAP Unknown Completed [facility] HPV9 Unknown Completed [facility] HPV9 Unknown Completed [facility] HPV[facility] Unknown Completed [facility] Influenza Virus Unknown Completed [facility] Vaccine [facility] .5 mL [facility] IM 6+ [place] [facility] (FLUZONE/FLULAVAL/F LUARIX) TDAP Unknown Completed [facility] TDAP Unknown Completed [facility] TDAP Unknown [facility]pleted [facility] TDAP Unknown Completed [facility] HPV9 Unknown Completed [facility] HPV9 Unknown Completed [facility] HPV9 Unknown Completed [facility] Influenza Virus Unknown Completed [facility] .5 mL [facility] 6+ [place] [facility] (FLUZONE/FLULAVAL/F LUARIX) TDAP Unknown Completed [facility] TDAP Unknown Completed [facility] TDAP Unknown Completed [facility] TDAP Unknown Completed [facility] HPV9 Unknown Completed [facility] HPV9 Unknown [facility] [facility] HPV9 Unknown Completed [facility] Influenza Virus Unknown Completed [facility] Vaccine Quad .5 mL [facility] IM 6+ [facility] (FLUZONE/FLULAVAL/F LUARIX) TDAP Unknown Completed [facility] TDAP Unknown Completed [facility] TDAP Unknown Completed [facility] TDAP Unknown Completed [facility] HPV9 Unknown Completed [facility] HPV9 Unknown Completed [facility] HPV9 Unknown Completed [facility] Influenza Virus Unknown Completed [facility] Vaccine Quad .5 mL [facility] IM 6+ [facility] (FLUZONE/FLULAVAL/F LUARIX) TDAP Unknown Completed [facility] TDAP Unknown Completed [facility] TDAP Unknown Completed [facility] HPV9 Unknown Completed [facility] HPV9 Unknown Completed [facility] HPV9 Unknown Completed [facility] Influenza Virus Unknown Completed [facility] Vaccine Quad .5 mL [facility] IM 6+ [facility] (FLUZONE/FLULAVAL/F LUARIX) TDAP Unknown Completed [facility] TDAP Unknown Completed [facility] HPV9 Unknown Completed [facility] HPV9 Unknown Completed [facility] HPV9 Unknown Completed [facility] Influenza Virus Unknown Completed [facility] Vaccine Quad .5 mL [facility] IM 6+ [facility] (FLUZONE/FLULAVAL/F LUARIX) TDAP Unknown Completed [facility] TDAP Unknown Completed [facility] HPV9 Unknown Completed [facility] HPV9 Unknown Completed [facility] HPV9 Unknown Completed [facility] Influenza Virus Unknown Completed [facility] Vaccine Quad .5 mL [facility] IM 6+ [facility] (FLUZONE/FLULAVAL/F LUARIX) TDAP Unknown Completed [facility] TDAP Unknown Completed [facility] HPV9 Unknown Completed [facility] HPV9 Unknown Completed [facility] HPV9 Unknown Completed [facility] Influenza Virus Unknown Completed [facility] Vaccine Quad .5 mL [facility] IM 6+ [facility] (FLUZONE/FLULAVAL/F LUARIX) TDAP Unknown Completed [facility] TDAP Unknown Completed [facility] HPV9 Unknown Completed [facility] HPV9 Unknown Completed [facility] HPV9 Unknown Completed [facility] Influenza Virus Unknown Completed [facility] Vaccine Quad .5 mL [facility] IM 6+ [facility] (FLUZONE/FLULAVAL/F LUARIX) TDAP Unknown Completed [facility] TDAP Unknown Completed [facility] HPV9 Unknown Completed [facility] HPV9 Unknown Completed [facility] HPV9 Unknown Completed [facility] Influenza Virus Unknown Completed [facility] Vaccine Quad .5 mL [facility] IM 6+ [facility] (FLUZONE/FLULAVAL/F LUARIX) TDAP Unknown Completed [facility] TDAP Unknown Completed [facility] HPV9 Unknown Completed [facility] HPV9 Unknown Completed [facility] HPV9 Unknown Completed [facility] Influenza Virus Unknown Completed [facility] Vaccine Quad .5 mL [facility] IM 6+ [facility] (FLUZONE/FLULAVAL/F LUARIX) TDAP Unknown Completed [facility] TDAP Unknown Completed [facility] HPV9 Unknown Completed [facility] HPV9 Unknown Completed [facility] HPV9 Unknown Completed [facility] Influenza Virus Unknown Completed [facility] Vaccine Quad .5 mL [facility] IM 6+ [facility] (FLUZONE/FLULAVAL/F LUARIX) TDAP Unknown Completed [facility] TDAP Unknown Completed [facility] TDAP Unknown Completed [facility] TDAP Unknown Completed [facility] HPV9 Unknown Completed [facility] HPV9 Unknown Completed [facility] HPV9 Unknown Completed [facility] Influenza Virus Unknown Completed [facility] Vaccine Quad .5 mL [facility] IM 6+ [facility] (FLUZONE/FLULAVAL/F LUARIX) TDAP Unknown Completed [facility] TDAP Unknown Completed [facility] TDAP Unknown Completed [facility] Vital Signs Vital Name Observation Time Observation Value Comments Source Systolic blood 2022-10-23 112 mm[Hg] [place] of pressure 15:43:00 [facility] Diastolic blood 2022-10-23 57 mm[Hg] [facility] pressure 15:43:00 [facility] Heart rate 2022-10-23 81 /min [facility] 15:43:00 [facility] Body temperature 2022-10-23 36.72 [facility] 15:43:00 [facility] Respiratory rate 2022-10-23 18 /min [facility] 15:43:00 [facility] Body weight 2022-10-23 117.845 kg University of 15:43:00 [facility] BMI 2022-10-23 44.59 kg/m2 University of 15:43:00 [facility] Heart rate 2022-10-10 85 /min [facility] of 12:00:00 [facility] Body temperature 2022-10-10 37.06 Grace [facility] 12:00:00 [facility] Respiratory rate 2022-10-10 18 /min University of 12:00:00 [facility] Systolic blood 2022-10-10 113 mm[Hg] University of pressure 07:00:00 [facility] Diastolic blood 2022-10-10 47 mm[Hg] University o f pressure 07:00:00 [facility] Oxygen saturation 2022-10-10 100 /min [facility] in Arterial blood 07:00:00 [facility] by Pulse oximetry [place] Body height 2022-10-08 162.6 cm University of 10:28:00 [facility] Body weight 2022-10-08 124.83 kg University of 10:28:00 [facility] BMI 2022-10-08 47.24 kg/m2 University of 10:28:00 [facility] Systolic blood 2022-10-08 129 mm[Hg] BP location changed Univer sity of pressure 14:30:00 to lower arms [facility] Diastolic blood 2022-10-08 67 mm[Hg] BP location changed Unive rsity of pressure 14:30:00 to lower arms [facility] Heart rate 2022-10-08 63 /min University of 14:30:00 [facility] Oxygen saturation 2022-10-08 99 /min [place] of in Arterial blood 14:30:00 [facility] by Pulse oximetry Branch Body temperature 2022-10-08 36.22 Grace [facility] of 14:28:00 [facility] Respiratory rate 2022-10-08 18 /min University of 14:28:00 [facility] Body height 2022-10-08 162.6 cm University of 10:28:00 [facility] Body weight 2022-10-08 124.83 kg University of 10:28:00 [facility] BMI 2022-10-08 47.24 kg/m2 University of 10:28:00 [facility] Heart rate 2022-10-06 94 /min University of 01:00:00 [facility] Branch Oxygen saturation 2022-10-06 97 /min University of in Arterial blood 01:00:00 [facility] silver by Pulse oximetry Branch Systolic blood 2022-10-06 101 mm[Hg] University of pressure 00:30:00 [facility] Diastolic blood 2022-10-06 60 mm[Hg] University o f pressure 00:30:00 [facility] Body temperature 2022-10-06 36.72 Grace [facility] 00:00:00 [facility] Respiratory rate 2022-10-06 18 /min University of 00:00:00 [facility] Branch Body weight 2022-10-05 124.739 kg based off pts last Universit y of 21:30:00 weight, unable to [facility] obtain weight pt Branch was tranbsportred via EMS BMI 2022-10-05 47.20 kg/m2 University of 21:30:00 [facility] Systolic blood 2022-09-24 117 mm[Hg] University of pressure 18:08:00 [facility] Branch Diastolic blood 2022-09-24 71 mm[Hg] University o f pressure 18:08:00 [facility] Heart rate 2022-09-24 111 /min University of 18:08:00 [facility] Body temperature 2022-09-24 36.72 Grace [facility] 18:08:00 [facility] Branch Respiratory rate 2022-09-24 18 /min University of 18:08:00 [facility] Body height 2022-09-24 162.6 cm University of 18:08:00 [facility] Body weight 2022-09-24 124.739 kg University of 18:08:00 [facility] BMI 2022-09-24 47.20 kg/m2 University of 18:08:00 [facility] Heart rate 2022-09-23 86 /min University of 04:53:00 [facility] Branch Oxygen saturation 2022-09-23 100 /min University of in Arterial blood 04:53:00 [facility] silver by Pulse oximetry Branch Systolic blood 2022-09-23 119 mm[Hg] University of pressure 04:30:00 [facility] Diastolic blood 2022-09-23 57 mm[Hg] University o f pressure 04:30:00 [facility] Body temperature 2022-09-23 36.94 Grace [facility] 04:30:00 [facility] Respiratory rate 2022-09-23 18 /min University of 04:30:00 [facility] Body height 2022-09-23 162.6 cm University of 04:30:00 [facility] Body weight 2022-09-23 125.556 kg University of 04:30:00 [facility] BMI 2022-09-23 47.51 kg/m2 University of 04:30:00 [facility] Systolic blood 2022-09-20 111 mm[Hg] University of pressure 21:00:00 [facility] Diastolic blood 2022-09-20 70 mm[Hg] University o f pressure 21:00:00 [facility] Heart rate 2022-09-20 100 /min University of :00:00 [facility] Respiratory rate 2022-09-20 18 /min University of :00:00 [facility] Body height 2022-09-20 162.6 cm University of :00:00 [facility] Body weight 2022-09-20 124.286 kg University of :00:00 [facility] BMI 2022-09-20 47.03 kg/m2 University of 21:00:00 [facility] Heart rate 2022-09-17 87 /min University of 22:05:00 [facility] Oxygen saturation 2022-09-17 100 /min [facility] Arterial blood 22:05:00 [facility] Pulse oximetry [place] Systolic blood 2022-09-17 118 mm[Hg] University of pressure 21:45:00 [facility] Diastolic blood 2022-09-17 53 mm[Hg] University o f pressure 21:45:00 [facility] Body temperature 2022-09-17 36.94 Grace University of :45:00 [facility] Respiratory rate 2022-09-17 18 /min University of :45:00 [facility] Body height 2022-09-17 162.6 cm University of :45:00 [facility] Body weight 2022-09-17 124.286 kg University of 21:45:00 [facility] BMI 2022-09-17 47.03 kg/m2 University of 21:45:00 [facility] Systolic blood 2022-09-17 119 mm[Hg] University of pressure 19:49:00 [facility] Diastolic blood 2022-09-17 74 mm[Hg] University o f pressure 19:49:00 [facility] Heart rate 2022-09-17 92 /min University of 19:49:00 [facility] Body temperature 2022-09-17 36.67 Grace [facility] of 19:49:00 [facility] Respiratory rate 2022-09-17 18 /min University of 19:49:00 [facility] Body height 2022-09-17 162.6 cm University of 19:49:00 [facility] Body weight 2022-09-17 124.286 kg University of 19:49:00 [facility] BMI 2022-09-17 47.03 kg/m2 University of 19:49:00 [facility] Oxygen saturation 2022-09-17 98 /min University of in Arterial blood 19:49:00 [facility] by Pulse oximetry [facility] Systolic blood 2022-09-11 101 mm[Hg] University of pressure 16:29:00 [facility] Branch Diastolic blood 2022-09-11 58 mm[Hg] University o f pressure 16:29:00 [facility] Heart rate 2022-09-11 91 /min University of 16:29:00 [facility] Body temperature 2022-09-11 36.83 Grace University of 16:29:00 [facility] Body height 2022-09-11 162.6 cm University of 16:29:00 [facility] Body weight 2022-09-11 123.832 kg University of 16:29:00 [facility] BMI 2022-09-11 46.86 kg/m2 University of 16:29:00 [facility] Heart rate 2022-09-02 91 /min University of 08:30:00 [facility] Oxygen saturation 2022-09-02 98 /min University of in Arterial blood 08:30:00 [facility] by Pulse oximetry Branch Respiratory rate 2022-09-02 18 /min University of 07:38:00 [facility] Systolic blood 2022-09-02 120 mm[Hg] University of pressure 07:37:00 [facility] Branch Diastolic blood 2022-09-02 62 mm[Hg] University o f pressure 07:37:00 [facility] Body temperature 2022-09-02 36.83 Grace University of 07:37:00 [facility] Body height 2022-09-02 162.6 cm University of 07:15:00 [facility] Body weight 2022-09-02 125.788 kg University of 07:15:00 [facility] BMI 2022-09-02 47.60 kg/m2 University of 07:15:00 [facility] Systolic blood 2022-08-26 114 mm[Hg] University of pressure 08:00:00 [facility] Diastolic blood 2022-08-26 45 mm[Hg] University o f pressure 08:00:00 [facility] Heart rate 2022-08-26 88 /min University of 08:00:00 [facility] Oxygen saturation 2022-08-26 99 /min [facility] Arterial blood 08:00:00 [facility] by Pulse oximetry [place] Body temperature 2022-08-26 37.17 Grace [facility] of 07:45:00 [facility] Systolic blood 2022-08-14 113 mm[Hg] University of pressure 19:14:00 [facility] Diastolic blood 2022-08-14 72 mm[Hg] University o f pressure 19:14:00 [facility] Heart rate 2022-08-14 91 /min University of 19:14:00 [facility] Body temperature 2022-08-14 36.78 Grace [facility] of 19:14:00 [facility] Body height 2022-08-14 165.1 cm University of 19:14:00 [facility] Body weight 2022-08-14 123.832 kg University of 19:14:00 [facility] BMI 2022-08-14 45.43 kg/m2 University of 19:14:00 [facility] Systolic blood 2022-08-06 113 mm[Hg] University of pressure 15:12:00 [facility] Diastolic blood 2022-08-06 70 mm[Hg] University o f pressure 15:12:00 [facility] Heart rate 2022-08-06 92 /min University of 15:12:00 [facility] Body height 2022-08-06 165.1 cm University of 15:12:00 [facility] Body weight 2022-08-06 123.741 kg University of 15:12:00 [facility] BMI 2022-08-06 45.40 kg/m2 University of 15:12:00 [facility] Systolic blood 2022-07-30 103 mm[Hg] University of pressure 15:02:00 [facility] Diastolic blood 2022-07-30 70 mm[Hg] University o f pressure 15:02:00 [facility] Heart rate 2022-07-30 93 /min University of 15:02:00 [facility] Body temperature 2022-07-30 36.94 Grace [facility] 15:02:00 [facility] Respiratory rate 2022-07-30 16 /min University of 15:02:00 [facility] Body height 2022-07-30 165.1 cm University of 15:02:00 [facility] Body weight 2022-07-30 123.651 kg University of 15:02:00 [facility] BMI 2022-07-30 45.36 kg/m2 University of 15:02:00 [facility] Oxygen saturation 2022-07-30 98 /min University of in Arterial blood 15:02:00 [facility] by Pulse oximetry Branch Systolic blood 2022-07-17 117 mm[Hg] University of pressure 18:29:00 [facility] Diastolic blood 2022-07-17 60 mm[Hg] University o f pressure 18:29:00 [facility] Heart rate 2022-07-17 87 /min University of 18:29:00 [facility] Body temperature 2022-07-17 37.28 Grace [facility] of 18:29:00 [facility] Respiratory rate 2022-07-17 16 /min University of 18:29:00 [facility] Body height 2022-07-17 165.1 cm University of 18:29:00 [facility] Body weight 2022-07-17 122.471 kg University of 18:29:00 [facility] BMI 2022-07-17 44.93 kg/m2 University of 18:29:00 [facility] Oxygen saturation 2022-07-17 99 /min University of in Arterial blood 18:29:00 [facility] by Pulse oximetry Branch Systolic blood 2022-07-02 119 mm[Hg] University of pressure 18:36:00 [facility] Branch Diastolic blood 2022-07-02 75 mm[Hg] University o f pressure 18:36:00 [facility] Heart rate 2022-07-02 63 /min University of 18:36:00 [facility] Body temperature 2022-07-02 36.44 Grace [facility] of 18:36:00 [facility] Respiratory rate 2022-07-02 16 /min University of 18:36:00 [facility] Body height 2022-07-02 165.1 cm University of 18:36:00 [facility] Body weight 2022-07-02 124.286 kg University of 18:36:00 [facility] BMI 2022-07-02 45.60 kg/m2 University of 18:36:00 [facility] Systolic blood 2022-06-05 138 mm[Hg] University of pressure 00:01:00 [facility] Diastolic blood 2022-06-05 74 mm[Hg] University o f pressure 00:01:00 [facility] Heart rate 2022-06-05 95 /min University of 00:01:00 [facility] Body temperature 2022-06-05 37 Grace [facility] of 00:01:00 [facility] Respiratory rate 2022-06-05 18 /min University of 00:01:00 [facility] Body height 2022-06-05 165.1 cm University of :01:00 [facility] Body weight 2022-06-05 120.203 kg University of 00:01:00 [facility] BMI 2022-06-05 44.10 kg/m2 University of 00:01:00 [facility] Oxygen saturation 2022-06-05 100 /min [facility] in Arterial blood 00:01:00 [facility] by Pulse oximetry Branch Systolic blood 2022-05-02 148 mm[Hg] University of pressure 23:00:00 [facility] Diastolic blood 2022-05-02 45 mm[Hg] University o f pressure 23:00:00 [facility] Heart rate 2022-05-02 181 /min University of 23:00:00 [facility] Respiratory rate 2022-05-02 16 /min University of 23:00:00 [facility] Oxygen saturation 2022-05-02 98 /min [facility] in Arterial blood 23:00:00 [facility] by Pulse oximetry Branch Body temperature 2022-05-02 36.5 Grace University of 22:42:00 [facility] Body height 2022-05-02 162.6 cm University of 22:42:00 [facility] Body weight 2022-05-02 121.11 kg University of 22:42:00 [facility] BMI 2022-05-02 45.83 kg/m2 University of 22:42:00 [facility] Systolic blood 2022-03-06 124 mm[Hg] University of pressure 21:48:00 [facility] Diastolic blood 2022-03-06 69 mm[Hg] University o f pressure 21:48:00 [facility] Heart rate 2022-03-06 99 /min University of 21:48:00 [facility] Body temperature 2022-03-06 37.17 Grace University of 21:48:00 [facility] Respiratory rate 2022-03-06 18 /min University of 21:48:00 [facility] Body weight 2022-03-06 108.863 kg University of 21:48:00 [facility] BMI 2022-03-06 38.74 kg/m2 University of 21:48:00 [facility] Oxygen saturation 2022-03-06 99 /min [place] of in Arterial blood 21:48:00 [facility] by Pulse oximetry Branch Systolic blood 2021-12-30 152 mm[Hg] University of pressure 10:32:26 [facility] Diastolic blood 2021-12-30 85 mm[Hg] University o f pressure 10:32:26 [facility] Heart rate 2021-12-30 84 /min University of 10:32:26 [facility] Respiratory rate 2021-12-30 20 /min University of 10:32:26 [facility] Oxygen saturation 2021-12-30 98 /min University of in Arterial blood 10:32:26 [facility] by Pulse oximetry Branch Body temperature 2021-12-30 37.06 Grace [facility] of 09:06:00 [facility] Body height 2021-12-30 167.6 cm University of 09:06:00 [facility] Body weight 2021-12-30 108.863 kg University of 09:06:00 [facility] BMI 2021-12-30 38.74 kg/m2 University of 09:06:00 [facility] Systolic blood 2021-12-13 146 mm[Hg] University of pressure 21:44:00 [facility] Diastolic blood 2021-12-13 81 mm[Hg] University o f pressure 21:44:00 [facility] Heart rate 2021-12-13 93 /min University of 21:44:00 [facility] Body temperature 2021-12-13 36.61 Grace [facility] of 21:44:00 [facility] Respiratory rate 2021-12-13 20 /min University of 21:44:00 [facility] Body height 2021-12-13 165.1 cm University of 21:44:00 [facility] Body weight 2021-12-13 90.719 kg University 21:44:00 [facility] BMI 2021-12-13 33.28 kg/m2 University 21:44:00 [facility] Oxygen saturation 2021-12-13 100 /min [facility] Arterial blood 21:44:00 [facility] by Pulse oximetry Branch Procedures Procedure Date / Time Performing Clinician Source Performed [facility] PATIENT FINANCIAL 2022-10-23 15:05:02 Doctor Unassigned, No [facility] POLICY Name Medical Branch POCT GLUCOSE 2022-10-10 02:44:00 [facility] (AUTOMATED) [facility] CBC WITH DIFF 2022-10-09 08:31:00 [facility] CBC WITH DIFF 2022-10-09 08:31:00 [facility] POCT GLUCOSE 2022-10-08 21:21:00 [facility] (AUTOMATED) [facility] POCT GLUCOSE 2022-10-08 21:21:00 [facility] (AUTOMATED) [facility] POCT GLUCOSE 2022-10-08 17:44:00 [facility] (AUTOMATED) [facility] POCT GLUCOSE 2022-10-08 17:44:00 [facility] (AUTOMATED) [facility] SECTION 2022-10-08 12:06:00 [facility] 2022-10-08 12:06:00 [facility] WITH DIFF 2022-10-08 10:54:00 [facility] HEPATITIS B SURFACE 2022-10-08 10:54:00 Nayeli [facility] ANTIGEN [facility] HB ABO GROUPING 2022-10-08 10:54:00 Irma [facility] RHO (D) IMMUNE GLOBULIN 2022-10-08 10:54:00 Nayeli Solis [facility] ADC OR MARK ONLY - 2022-10-08 10:54:00 [facility] HIV 1/2 AG-AB WITH 2022-10-08 10:54:00 Nayeli Solis [facility] REFLEX Medical Branch CBC WITH DIFF 2022-10-08 10:54:00 Irma [facility] HEPATITIS B SURFACE 2022-10-08 10:54:00 Nayeli Solis [facility] ANTIGEN Medical Branch HB ABO GROUPING 2022-10-08 10:54:00 [facility] IMMUNE GLOBULIN 2022-10-08 10:54:00 Nayeli Solis [facility] Medical [place] ADC OR MARK ONLY - 2022-10-08 10:54:00 Nayeli Solis [facility] RPR Medical Branch HIV 1/2 AG-AB WITH 2022-10-08 10:54:00 Nayeli Solis [facility] REFLEX Medical Branch POCT GLUCOSE 2022-10-08 10:47:00 Irma [facility] (AUTOMATED) Medical Branch POCT GLUCOSE 2022-10-08 10:47:00 Irma [facility] (AUTOMATED) Medical Branch NOTICE OF PRIVACY 2022-10-08 10:16:24 Doctor Unassigned, No [facility] Name Medical Branch NOTICE OF PRIVACY 2022-10-08 10:16:24 Doctor Unassigned, No Univ [facility] Medical Branch CONSENT/REFUSAL FOR 2022-10-08 10:14:17 Doctor Unassigned, No [facility] Name Medical Branch CONSENT/REFUSAL FOR 2022-10-08 10:14:17 Doctor Unassigned, No [facility] Name Medical Branch ASSIGNMENT OF BENEFITS 2022-10-08 10:13:52 Doctor Unassigned, No [facility] Medical Branch ASSIGNMENT OF BENEFITS 2022-10-08 10:13:52 Doctor Unassigned, No [facility] Medical Branch L&D VISIT 2022-10-05 05:01:00 Doctor Unassigned, No [facility] (NON-DELIVERED) Name Medical Branch EMERGENCY DEPARTMENT 2022-10-05 05:01:00 Doctor Unassigned, No [facility] DOCUMENTS Name Medical Branch L&D VISIT 2022-10-05 05:01:00 Doctor Unassigned, No [facility] (NON-DELIVERED) [facility] SECOND AND THIRD 2022-09-25 15:56:00 Royal Atkinson [facility] TRIMESTER ULTRASOUND Medical Bra [facility] NON-STRESS TEST 2022-09-24 18:41:11 Nayeli Solis [facility] URINALYSIS 2022-09-23 04:58:00 Yojana Parker [facility] ADC CLC OR LCC ONLY - 2022-09-23 04:58:00 Yojana Parker [facility] WET PREP [facility] ASSIGNMENT OF BENEFITS 2022-09-23 03:56:01 Doctor Unassigned, No [facility] CONSENT/REFUSAL FOR 2022-09-23 03:54:28 Doctor Unassigned, No Un [facility] DIAGNOSIS AND TREATMENT [facility] NON-STRESS TEST 2022-09-20 21:28:02 Keira Parkersol [facility] CONSENT/REFUSAL FOR 2022-09-17 21:15:01 Doctor Unassigned, No Un [facility] DIAGNOSIS AND TREATMENT [facility] ASSIGNMENT OF BENEFITS 2022-09-17 21:14:19 Doctor Unassigned, No [facility] NON-STRESS TEST 2022-09-17 20:56:02 Keira Parkersol [facility] NON-STRESS TEST 2022-09-11 23:07:15 Nayeli Solis [facility] CBC WITH DIFF 2022-09-11 17:48:00 Nayeli Solis [place] [facility] HIV 1/2 AG-AB WITH 2022-09-11 17:48:00 Nayeli Solis [facility] REFLEX [facility] POCT URINALYSIS W/O 2022-09-11 00:00:00 Nayeli Solis [facility] SPECIFIC GRAVITY [facility] POCT GLUCOSE 2022-09-02 07:57:00 Adum, Monica Campbell [place] (AUTOMATED) [facility] ASSIGNMENT OF BENEFITS 2022-09-02 07:08:16 Doctor Unassigned, No [facility] ADC CLC OR LCC ONLY - 2022-08-26 07:39:00 Nayeli Solis [facility] WET PREP [facility] POCT URINALYSIS W/O 2022-08-14 00:00:00 Nayeli Solis [facility] SPECIFIC GRAVITY [facility] GC & CHLAMYDIA 2022-07-30 15:33:00 Royal Atkinson [facility] AMPLIFIED ASSAY [facility] GALV ONLY - VAGINAL 2022-07-30 15:33:00 [facility] PATH[facility]ENS BY NUCLEIC Medical [facility] ACID TESTING TDAP VACCINE, >11 YRS, 2022-07-30 15:32:14 Royal Atkinson [facility] POCT URINALYSIS W/O 2022-07-30 00:00:00 Royal Atkinson [facility] URINALYSIS 2022-07-17 19:51:00 Seferino Ambrose [facility] COMP. METABOLIC PANEL 2022-07-17 19:48:00 Seferino Ambrose [facility] ([id number]) [facility] CBC WITH DIFF 2022-07-17 19:48:00 Seferino Ambrose [facility] ASSIGNMENT OF BENEFITS 2022-07-17 19:39:31 Doctor Unassigned, No [facility] CONSENT/REFUSAL FOR 2022-07-17 19:39:13 Doctor Unassigned, No [facility]NOS[facility] AND [facility] GC & CHLAMYDIA 2022-07-02 18:48:00 Royal Atkinson [facility] AMPLIFIED ASSAY [facility] TRICHOMONAS AMPLIFIED 2022-07-02 18:48:00 Royal Atkinson [facility] CONSENT/REFUSAL FOR 2022-07-02 18:22:22 Doctor Unassigned, No [facility] DIAGNOSIS AND [facility] POCT URINALYSIS W/O 2022-07-02 00:00:00 Royal Atkinson [facility] NOTICE OF PRIVACY 2022-06-04 23:33:20 Doctor Unassigned, No [facility] CONSENT/REFUSAL FOR 2022-06-04 23:32:28 Doctor Unassigned, No [facility] [place] DIAGNOSIS AND TREATMENT Name [facility] L&D VISIT 2022-06-04 05:01:00 Doctor Unassigned, No [facility] (NON-DELIVERED) Name [facility] US PELVIS > 2022-05-03 00:41:[address] [facility] 14 WEEKS [facility] POCT TEST 2022-05-02 22:57:00 Edgar Oliva [facility] LIPASE 2022-05-02 22:56:00 Edgar Oliva [facility] COMP. METABOLIC PANEL 2022-05-02 22:56:00 Edgar Oliva [facility] ([id number]) [facility] TOTAL BETA HCG ASSAY 2022-05-02 22:56:00 Edgar Oliva [facility] CBC WITH DIFF 2022-05-02 22:56:00 Edgar Oliva [facility] URINALYSIS 2022-05-02 22:56:00 Edgar Oliva [facility] CONSENT/REFUSAL FOR 2022-05-02 22:35:14 Doctor Unassigned, No [facility]NOSIS AND TREATMENT [facility] US FIRST 2022-03-06 23:49:[address] [facility] TRIMESTER LESS THAN 14 [facility] WEEKS WITH TRANSVAGINAL TOTAL BETA HCG ASSAY 2022-03-06 22:21:00 Irvin Edwards [facility] CBC WITH DIFF 2022-03-06 22:21:00 Irvin Edwards [facility] HB ABO GROUPING 2022-03-06 22:20:00 Irvin Edwards [facility] POCT TEST 2022-03-06 22:06:00 Irvin Edwards [facility] XR CHEST 2 VW 2021-12-30 10:05:32 Jorden Brooke [facility] RAPID STREP SCREEN FOR 2021-12-30 09:35:00 Jorden Brooke Un [facility] GROUP A [facility] URINALYSIS 2021-12-30 09:32:00 [facility]AP[facility] INFLUENZA A/B 2021-12-30 09:32:00 Jorden Brooke [facility] COVID-19 (ID NOW RAPID 2021-12-30 09:32:00 Jorden Brooke [facility] [place] TESTING) Medical Branch CONSENT/REFUSAL FOR 2021-12-30 09:02:39 Doctor Unassigned, No Un [facility] [place] DIAGNOSIS AND TREATMENT Name [facility] XR CHEST 1 VW 2021-12-13 23:55:13 Makayla Bettencourt [facility] LIPASE 2021-12-13 23:24:00 Makayla Bettencourt [facility] COMP. METABOLIC PANEL 2021-12-13 23:24:00 Makayla Bettencourt [facility] ([id number]) [facility] CBC WITH DIFF 2021-12-13 23:24:00 Makayla Bettencourt [facility] POCT TEST 2021-12-13 23:10:00 Makayla Bettencourt [facility] URINALYSIS 2021-12-13 23:00:00 Makayla Bettencourt [facility] US GALL BLADDER 2021-12-13 22:44:06 Makayla Bettencourt [facility] CONSENT/REFUSAL FOR 2021-12-13 21:16:31 Doctor Unassigned, No [facility] [place] DIAGNOSIS AND TREATMENT Name [facility] Encounters Start End Encounter Admission Attending Care Care Encounter Source Date/Time Date/Time Type Type Clinicians Facility Department ID 2022-09-17 Outpatient P [facility] JOSE [id number] Univers 16:09:46 ity [facility] 2021-06-06 Outpatient X [facility] JOSE [id number] Univers 14:23:38 ity of [facility] 2020-12-26 Outpatient P [facility] JOSE [id number] Univers 04:28:49 ity of [facility] 2020-12-26 Emergency [facility] [id number] Univers 04:28:49 ity [facility] 2022-12-18 2022-12-18 Outpatient R NAYELI SOLIS [facility] [id number] Univers 16:15:00 16:15:00 ity of [facility] 2022-12-18 2022-12-18 Telephone Nayeli Solis [facility] 1.2.840.114 [id number] Univers 00:00:00 00:00:00 Cam [place] 350.1.13.10 i ty [place] [id number] Il dicagustina [address] 2022-12-06 2022-12-06 Outpatient R NAYELI SOLIS [facility] [id number] Univers 15:30:00 15:30:00 ity of [facility] 2022-12-04 2022-12-04 [place] Nayeli Solis [facility] 1.2.840.114 [id number] Univers 00:00:00 00:00:00 Cam [place] 350.1.13.10 i ty [place] [id number] Il dicagustina [address] 2022-10-23 2022-10-23 Outpatient R NAYELI SOLIS [facility] [id number] Univers 10:30:00 10:43:01 ity of [facility] 2022-10-23 2022-10-23 Routine Yojana Parker [facility] 1.2. 840.114 [id number] Univers 10:30:00 10:43:01 Nayeli Solis Johnathan MANRIQUE 350.1.13.10 ity of Visit [place] [id number] Il dical [address] 2022-10-23 2022-10-23 Orders Doctor EMMANUEL 1.2.840.114 [id number] Univers 00:00:00 00:00:00 Only Unassigned, KHURRAM 350.1.13.10 ity of [place] [facility] 4.2.7.2.686 Lui as [id number] [address] 2022-10-23 2022-10-23 Telephone [facility] 1.2.840.114 [id number] Univers 00:00:00 00:00:00 Cam [place] 350.1.13.10 i ty of [place] [id number] Il dical [facility] [address] [facility] 2022-10-22 2022-10-22 Outpatient R [facility] [id number] Univers 14:30:00 14:30:00 ity of [facility] 2022-10-16 2022-10-16 Outpatient R [facility] [id number] Univers 15:00:00 15:00:00 ity of [facility] 2022-10-08 2022-10-10 Inpatient P NAYELI SOLIS [facility] JOSE [id number] Univers 05:17:00 10:55:00 ity of [facility] 2022-10-08 2022-10-10 [facility] Nayeli Solis [facility] 1.2.840.114 [id number] Univers 05:17:00 10:55:00 Encounter Cam [place] 350.1.13.10 [place] [id number] [facility] [address] [place] 2022-10-08 2022-10-08 Surgery Irma [facility] [place] 1.2.859.161 [id number] Univers 08:00:00 09:37:00 Cam [place] 350.1.13.10 i [place] [id number] [facility] 0[address] [place] 2022-10-06 2022-10-06 Nurse Cherri Li 1.2.840.114 10 [id number] Univers 00:00:00 00:00:00 Triage KHURRAM 350.1.13.10 it y of HOSPITAL 4.2.7.2.686 Lui as [id number] [facility] [address] 2022-10-05 2022-10-05 Outpatient P NAYELI SOLIS [facility] JOSE [id number] Univers 14:48:00 20:10:00 ity of [facility] 2022-10-05 2022-10-05 Hospital [facility] 1.2.840.114 [id number] Univers 14:48:00 20:10:00 Encounter Cam [place] 350.1.13.10 [place] [id number] [place] [id number] [place] 2022-09-27 2022-09-27 Outpatient R [facility] [id number] Univers 14:00:00 14:00:00 ity of [facility] 2022-09-26 2022-09-26 Case Deon [facility] SAENZ 1.2.840.114 [id number] Univers 00:00:00 00:00:00 Management Royal [place] 350.1.13.10 ity of [place] [facility] [id number] [address] 2022-09-26 2022-09-26 Telephone Nayeli Solis [facility] 1.2.840.114 10 [id number] Univers 00:00:00 00:00:00 Johnathan [facility] 350.1.13.10 i [place] [id number] Il dical NAL [address] [place] [address] 2022-09-25 2022-09-25 Outpatient P RAMSEY [facility] [id number] Univers 10:15:00 10:53:24 GUNNAR it y of SADIA Lucas [facility] 2022-09-25 2022-09-25 Waste Chopper [facility]tras[facility] 1.2 .840.114 [id number] Univers 10:15:00 10:53:24 Visit Sadia Hays ASSISTANT ART DIRECTOR 350.1. 13.10 ity of REGIONAL 4.2.7.2.686 Lui as MATERNAL [id number] Med ical & CHILD [address] [place] [address] 2022-09-24 2022-09-24 Routine Room, [facility] 1.2.840.1 14 [id number] Univers 14:00:00 14:00:00 Nayeli Solis [facility] 350.1.13.10 it[place] of [place] [id number] Il dical NAL [address] [place] [address] 2022-09-24 2022-09-24 Outpatient R NAYELI SOLIS [facility] [id number] Univers 14:00:00 13:40:46 ity of [facility] 2022-09-22 2022-09-23 Outpatient X KEIRA PARKERSOL [facility] O BY [id number] Univers 23:02:00 01:00:00 PEREZ-KEIRA JOHNSOL ity [facility] 2022-09-22 2022-09-23 Emergency Perez-Maria Luz [facility] 1.2.840.114 [id number] Univers 23:02:00 01:00:00 s, Yojana [place] 350.1.13.10 [place] [id number] [address] 2022-09-20 2022-09-20 Routine Room, [facility] 1.2.840.1 14 [id number] Univers 15:00:00 15:15:00 Perez-JohnKeiraYojana [place] 350.1. 13.10 ity of Visit [place] [facility] [id number] Il dical [address] 2022-09-20 2022-09-20 Outpatient R PEREZAnabelleANAID YOJANA [facility] U TMB [id number] Univers 15:00:00 15:00:00 PEREZ-KEIRA JOHNSOL ity [facility] 2022-09-17 2022-09-17 Outpatient P ELENA YOJANA [facility] O BY [id number] Univers 16:13:00 17:15:00 ARELIISKEIRAYOJANA ity [facility] 2022-09-17 2022-09-17 [facility] Flavio [facility] 1.2.840.114 1 [id number] Univers 16:13:00 17:15:00 Encounter sKeiraYojana [place] 350.1.13.10 ity of [facility] [place].2.7.[place] [id number] [address] 2022-09-17 2022-09-17 Outpatient R PEREZAnabelleANAID YOJANA [facility] U TMB [id number] Univers 14:00:00 15:30:08 CHRIS-KEIRA JOHNSOL ity of [facility] 2022-09-17 2022-09-17 Routine Room, [facility] 1.2.840.1 14 [id number] Univers 14:00:00 15:30:08 Chris-Keira Johnsol [facility] 350.1. 13.10 ity of Visit [place] [id number] Il dical NAL [address] [facility] 2022-09-14 2022-09-14 Patient Doctor [facility] 1.2.840.114 [id number] Univers 00:00:00 00:00:00 Secure Msg Unassigned, [facility] 350.1.13.10 ity of [place].2.7.2.[place] [facility] [id number] [facility] PRIMARY & [address] SPECIALTY CARE 2022-09-12 2022-09-12 Telephone Nayeli Solis [facility] 1.2.840.114 [id number] Univers 00:00:00 00:00:00 Johnathan [place] 350.1.13.10 it y of [place] [id number] [address] 2022-09-12 2022-09-12 Patient Doctor [facility] 1.2.840.114 [id number] Univers 00:00:00 00:00:00 Secure Msg Unassigned, HILARIA 350.1.13.10 ity of [place] [id number] Il dical NAL [address] [facility] 2022-09-11 2022-09-11 Waste Chopper Kalpesh, Jett [facility] Main [facility] 1.2.8 40.114 [id number] Univers 12:45:00 13:00:00 Visit Nayeli Solis 350.1.13.10 ity of [facility] [place] [id number] Il dical NAL [address] [facility] 2022-09-11 2022-09-11 Outpatient R SOLIS, [facility] [id number] Univers 11:15:00 12:34:05 ity of [facility] 2022-09-11 2022-09-11 Routine Irma [facility] 1.2.767.356 [id number] Univers 11:15:00 12:34:05 Johnathan MANRIQUE 350.1.13.10 ity of Visit [place].2.[place] [facility] [id number] Il dical [place] [address] [address] [facility] 2022-09-11 2022-09-11 Patient Diomedes [facility] 1.2.599.611 [id number] Univers 00:00:00 00:00:00 Outreach Nuvia [place] 350.1.13.10 i ty of [facility] 4.2.7.2.686 [facility] [id number] [address] 2022-09-10 2022-09-10 Outpatient R IRMA [facility] [id number] Univers 15:00:00 15:00:00 ity of [facility] 2022-09-06 2022-09-06 Outpatient R IRMA [facility] [id number] Univers 08:00:00 08:00:00 ity of [facility] 2022-09-02 2022-09-02 Out[facility] [id number] Univers 02:22:00 05:05:00 MONICA ity of [facility] 2022-09-02 2022-09-02 [facility] 1.2.725.737 [id number] Univers 02:22:00 05:05:00 Monica MANRIQUE 350.1.13.10 ity of [place] [id number] [facility] [address] 2022-08-26 2022-08-26 Outpatient P IRMA [facility] JOSE [id number] Univers 02:05:00 07:04:00 ity of [facility] 2022-08-26 2022-08-26 Hospital Irma [facility] 1.2.840.114 [id number] Univers 02:05:00 07:04:00 Encounter Johnathan MANRIQUE 350.1.13.10 ity of [place] 4.2.7.2.686 [facility] [id number] [facility] [address] 2022-08-23 2022-08-23 Telemedici FellowJl [facility] 1 .2.840.114 [id number] Univers 11:30:00 12:00:00 ne Visit Ramsey Galarzaevelyne Sadia ASSISTANT ART DIRECTOR 350.1 .13.10 ity of [facility] 4.2.7.2.686 Lui as MATERNAL [id number] [facility] & CHILD 124 [facility] 2022-08-23 2022-08-23 Outpatient R RAMSEY [facility] [id number] Univers 11:30:00 11:30:00 GUNNAR it y of SAD[place] Lucas [facility] 2022-08-23 2022-08-[address] [facility]ke[facility]ab[facility]unde[facility] 1.2.840.114 [id number] Univers 00:00:00 00:00:00 Management Royal [place] 350.1.13.10 ity of WOMENS 4.2.7.2.686 [facility] [id number] [facility] [address] 2022-08-22 2022-08-22 Waste Chopper Ultrasound, [facility] 1.2 .840.114 [id number] Univers 14:15:00 14:53:31 Visit Jaswinder Valle ASSISTANT ART DIRECTOR 350.1.13.10 ity of [facility] 4.2.7.2.686 Lui as MATERNAL [id number] [facility] ical & CHILD [address] [place] [address] 2022-08-22 2022-08-22 Outpatient P JASWINDER VALLE [facility] [id number] Univers 14:15:00 14:15:00 JASWINDER VALLE [facility] 2022-08-14 2022-08-14 Outpatient R NAYELI SOLIS [facility] [id number] Univers 14:45:00 15:09:41 ity [facility] 2022-08-14 2022-08-14 Routine Nayeli Solis [facility] 1.2.584.877 [id number] Univers 14:45:00 15:09:41 Cam [place] 350.1.13.10 ity of [place].2.[place] [id number] Il dical [address] 2022-08-09 2022-08-09 Telemedici Fellow, Jl Lin [facility] 1 .2.840.114 [id number] Univers 09:30:00 10:00:00 ne Visit Paradise Meza ASSISTANT ART DIRECTOR 350.1.13.10 ity of REGIONAL 4.2.7.2.686 Lui as MATERNAL [id number] Med ical & CHILD [address] [place] [address] 2022-08-09 2022-08-09 Outpatient R PARADISE MEZA [facility] [id number] Univers 09:30:00 09:30:00 PARADISE MEZA ity of [facility] 2022-08-09 2022-08-09 Patient Doctor [facility] 1.2.884.935 [id number] Univers 00:00:00 00:00:00 Secure Msg Unassigned, Y HEALTH 350.1.13.10 ity of [place] [facility] [place]2.[place].2.[place] [id number] [address] 2022-08-06 2022-08-06 Outpatient R AMINA BUITRAGO [facility] [id number] Univers 15:00:00 15:00:00 AMINA BUITRAGO ity of [facility] 2022-08-06 2022-08-06 Nurse Nurse, Lkj [facility] 1.2.840.114 [id number] Univers 10:00:00 10:40:09 Visit Amina Buitrago 350.1.13.10 ity of [place]ALTH [id number] [address] 2022-08-05 2022-08-05 Telephone Deon [facility] ASHLEY 1.2.840.11 [id number] Univers 00:00:00 00:00:00 Royal [place] 350.1.13.10 it y of [place]ALTH [id number] [address] 2022-07-30 2022-07-30 Outpatient R ROYAL ATKINSON [facility] B [id number] Univers 10:00:00 10:32:36 ROYAL ATKINSON kristian [facility] 2022-07-30 2022-07-30 Routine [facility] 1.2.840.114 [id number] Univers 10:00:00 10:32:36 Royal [place] 350.1.13.10 i ty of Visit W[facility]EN'[facility] 4.2.7.2.686 [facility] [id number] [address] 2022-07-27 2022-07-27 Outpatient R [facility] [id number] Univers 14:30:00 14:30:00 ity [facility] 2022-07-25 2022-07-[address] [facility]ke[facility]abatundeHE[facility] 1.2.840.114 [id number] Univers 00:00:00 00:00:00 Management Royal [place] 350.1.13.10 ity of [place] 4.2.7.2.686 [facility] [id number] [address] 2022-07-24 2022-07-24 Waste Chopper 1, [facility] 1.2. 840.114 [id number] Univers 15:00:00 15:46:35 Visit Mary Gonzalez ASSISTANT ART DIRECTOR [id number] ity of [facility] [id number] Lui as MATERNAL [id number] Med ical & CHILD [address] [place] [address] 2022-07-24 2022-07-24 Outpatient P LISA [facility] [id number] Univers 15:00:00 15:00:00 MARY rodriguez [facility] 2022-07-17 2022-07-17 Emergency X HALIE [facility] ERT [id number] Univers 13:31:00 16:23:00 SEFERINO rodriguez [facility] 2022-07-17 2022-07-17 Emergency Halie [facility] 1.2.840.114 [id number] Univers 13:31:00 16:23:00 Seferino MANRIQUE 350.1.13.10 [address] of PITER 4.2.7.2.686 [facility] [facility] [place] [facility] [id number] [facility] [address] 2022-07-17 2022-07-17 Outpatient R [facility] [id number] Univers 15:15:00 15:15:00 ity [facility] 2022-07-17 2022-07-17 Telephone [facility] 1.2.840.11 4 [id number] Univers 00:00:00 00:00:00 [place] 350.1.13.10 it [place] [facility] [id number] [address] 2022-07-12 2022-07-12 Telephone [facility] 1.2.840.11 4 [id number] Univers 00:00:00 00:00:00 [place] 350.1.13.10 it y of WOMEN'S 4.2.7.2.686 [facility] [id number] [facility] [address] [place] 2022-07-11 2022-07-11 Outpatient R [facility] [id number] Univers 15:15:00 15:15:00 [facility]22-[facility]11 2022-07-11 Telephone [facility] 1.2.840.11 4 [id number] Univers 00:00:00 00:00:00 [place] 350.1.13.10 [place] [facility] [id number] [address] 2022-07-11 2022-07-11 Telephone [facility] 1.2.840.11 4 [id number] Univers 00:00:00 00:00:00 [place] 350.1.13.10 it [place] [facility] [id number] [address] 2022-07-11 2022-07-11 Telephone [facility] 1.2.840.11 4 [id number] Univers 00:00:00 00:00:00 [place] 350.1.13.10 it y of [place] [id number] [address] 2022-07-11 2022-07-11 Telephone Nayeli Solis [facility] 1.2.840.114 10 [id number] Univers 00:00:00 00:00:00 Cam H[place]AR[place] 350.1.13.10 i ty of [place].2.[place] [phone] Il liberty MONROY 134 [facility] 2022-07-09 2022-07-09 [facility] 1.2.840.11 4 [id number] Univers 00:00:00 00:00:00 [place] 350.1.13.10 it y of [place] [id number] [address] 2022-07-05 2022-07-05 Waste Chopper Lab, Alvaro - Misbah [facility] 1.2.840.1 14 [id number] Univers 09:30:00 10:31:55 Visit Royal Atkinson [facility] 350.1.13.1 0 ity of [place] 4.2.7.2.686 Lui as BHAVIK?BLEA [id number] Il liberty [address] MEDICAL OFFICE [facility] 2022-07-05 2022-07-05 Outpatient R ROAYL ATKINSON [facility] B [id number] Univers 09:30:00 09:30:00 ROYAL ATKINSON ity of [facility] 2022-07-05 2022-07-05 Patient Deon [facility] 1.2.840.114 [id number] Univers 00:00:00 00:00:00 Secure Msg [place] 350.1.13.10 it[place] [id number] [address] 2022-07-02 2022-07-02 Outpatient R ROYAL ATKINSON [facility] B [id number] Univers 13:30:00 13:58:26 ROYAL ATKINSON ity of [facility] 2022-07-02 2022-07-02 Initial [facility] 1.2.840.114 [id number] Univers 13:30:00 13:58:26 [place] 350.1.13.10 i ty of Visit WOMEN'S 4.2.7.2.686 [facility] [id number] [facility] [address] 2022-07-02 2022-07-02 Orders Doctor EMMANUEL 1.2.840.114 [id number] Univers 00:00:00 00:00:00 Only Unassigned, KHURRAM 350.1.13.10 ity of [place] [facility] 4.2.7.2.686 Lui [id number] [facility] [address] 2022-06-18 2022-06-18 Outpatient R BAMBIBABATUNDE [facility] B [id number] Univers 14:00:00 14:00:00 [facility] 2022-06-04 2022-06-04 Outpatient P YOJANA PARKER [facility] O BY [id number] Univers 18:50:00 19:30:00 [facility] 2022-06-04 2022-06-04 [facility] 1.2.840.114 1 [id number] Univers 18:50:00 19:30:00 Encounter s Yojanaholland MANRIQUE 350.1.13.10 ity of [place] 4.2.7.2.686 [facility] [id number] [place] [id number] [place] 2022-05-02 2022-05-02 Emergency X HAZEL [facility] ERT [id number] Univers 16:43:00 20:01:00 [facility] 2022-05-02 2022-05-02 Emergency [facility] 1.2.840.114 10 [id number] Univers 16:43:00 20:01:00 Edgarkristian MANRIQUE 350.1.13.10 i ty of [facility] 4.2.7.2.686 [facility] [phone] [facility] [address] 2022-04-01 2022-04-02 Emergency EM SANTIAGO Shepherd TAVO [id number] [facility] 21:11:00 00:48:00 [place] 23 [facility] 2022-04-01 2022-04-01 Outpatient VICKEY Shepherd LABKevin [id number] [facility] 23:32:00 23:32:00 [place] 51 [facility] 2022-03-20 2022-03-20 Outpatient R NAYELI SOLIS [facility] [id number] Univers 14:30:00 14:30:00 ity of [facility] 2022-03-13 2022-03-13 Patient Nayeli Solis [facility] 1.2.609.213 [id number] Univers 00:00:00 00:00:00 Secure Msg Johnathan MANRIQUE 350.1.13.10 ity [facility] 4.2.7.2.686 [facility] [id number] Il dical [address] 2022-03-08 2022-03-08 Outpatient R OSVALDO [facility] [id number] Univers 08:30:00 08:30:00 ANDRES ity o f [facility] 2022-03-07 2022-03-07 Telephone Only, [facility] 1.2.631.450 [id number] Univers 00:00:00 00:00:00 Ang-chp ASSISTANT ART DIRECTOR 350.1.13.10 ity of Open Access [facility] 4.2.7.2.686 [facility] [phone] Med ical & CHILD [address] [place] [address] 2022-03-06 2022-03-06 Emergency [facility] ERT [id number] Univers 15:49:00 19:17:00 IRVIN it y of [facility] 2022-03-06 2022-03-06 Emergency Castana, [facility] 1.2.900.964 [id number] Univers 15:49:00 19:17:00 Irvin [facility] 350.1.13.10 ity [facility] 4.2.7.2.686 [facility] [id number] [address] 2022-03-05 2022-03-05 Outpatient R YOJANA PARKER [facility] U TMB [id number] Univers 09:30:00 09:30:00 PEREZLITOJHONYOJANA MCMAHON [facility] 2022-02-12 2022-02-12 Outpatient R LESADWIGHTVLADISLAV [facility] [id number] Univers 10:00:00 10:00:00 ДМИТРИЙ [facility] 2022-02-08 2022-02-08 Outpatient R REUBEN SAMREEN [facility] [id number] Univers 15:15:00 15:15:00 SAMREEN ALEXIS [facility] 2021-12-30 2021-12-30 Emergency X CHAGO [facility] ERT [id number] Univers 04:02:00 05:49:00 JORDEN BROOKE [facility] 2021-12-30 2021-12-[address] [facility] 1.2.840.114 [id number] Univers 04:02:00 05:49:00 JordenFormerly [facility] 350.1.13.10 it y of [place] [id number] [address] ([facility]) 2021-12-20 2021-12-20 [facility] 1.2.844.867 [id number] Univers 00:00:00 00:00:00 Eleanor Brice ASSISTANT ART DIRECTOR 350.1.13.10 it y of REGIONAL 4.2.7.2.686 Lui as MATERNAL [id number] [facility] & CHILD [address] [place] [address] 2021-12-18 2021-12-18 Outpatient R ANETTE MORAN [facility] [id number] Univers 15:00:00 15:00:00 ity [facility] 2021-12-13 2021-12-13 Emergency X [facility] ERT [id number] Univers 16:45:00 19:49:00 MAKAYLA sharma [facility] 2021-12-13 2021-12-13 Emergency [facility] 1.2.840.114 [id number] Univers 16:45:00 19:49:00 [facility] 350.1.13.10 i ty of [place] [id number] [address] ([facility]) 2021-12-11 2021-12-11 Outpatient R XANDER SILVA [facility] [id number] Univers 09:30:00 09:30:00 ity [facility] 2021-12-08 2021-12-08 Outpatient R [facility] [id number] Univers 15:00:00 15:00:00 ity [facility] 2021-12-04 2021-12-04 Outpatient R [facility] [id number] Univers 14:00:00 14:00:00 [facility] 2021-12-01 2021-12-01 [facility] [id number] Univers 13:20:00 13:20:00 ALISTAIR [facility] 2021-11-29 2021-11-29 [facility] [id number] Univers 08:00:00 08:00:00 ELEANOR rodriguez [facility] 2021-11-24 2021-11-24 Outpatient [facility] [id number] Univers 14:50:00 14:50:00 [facility] 2021-11-17 2021-11-17 Telephone [facility] 1.2.840.114 [id number] Univers 00:00:00 00:00:00 Latasha Campbell ASSISTANT ART DIRECTOR 350.1.13.10 ity of [facility] 4.2.7.2.686 Lui as MATERNAL [phone] [facility] & CHILD [address] [place] [address] 2021-11-13 2021-11-13 Telephone [facility] 1.2.840.114 [id number] Univers 00:00:00 00:00:00 Eleanor Brice ASSISTANT ART DIRECTOR 350.1.13.10 it y of REGIONAL 4.2.7.2.686 Lui as MATERNAL [id number] [facility] & CHILD [address] [place] [address] 2021-11-10 2021-11-10 Out[facility] [id number] Univers 16:00:00 16:47:49 ELEANOR [facility] 2021-11-10 2021-11-10 Routine [facility] 1.2.210.805 [id number] Univers 16:00:00 16:47:49 Eleanor N ASSISTANT ART DIRECTOR 350.1.13.[address] [facility] 4.2.7.2.686 Lui as MATERNAL [id number] [facility] & [address] 2021-11-10 2021-11-10 Oneida Ryder [facility] 1.2.840.114 [id number] Univers 00:00:00 00:00:00 HILARIA 350.1.13.10 i ty of [place].2.[place] [id number] [address] 2021-11-09 2021-11-09 Outpatient Jolynn CARPENTER [facility] [id number] Univers 15:30:00 15:30:00 NICA sharma [facility] 2021-11-07 2021-11-07 Outpatient Jolynn CARPENTER [facility] [id number] Univers 14:30:00 14:30:00 NICA sharma [facility] 2021-11-07 2021-11-07 Telephone Nayeli Solis [facility] 1.2.840.114 [id number] Univers 00:00:00 00:00:00 Johnathan MANRIQUE 350.1.13.10 i ty of [place] 4.2.7.2.686 [place] [id number] [address] 2021-10-27 2021-10-27 Telephone Provider, [facility] 1.2.840.114 [id number] Univers 00:00:00 00:00:00 Pea-Rmchp ASSISTANT ART DIRECTOR 350.1.13.10 ity of Temp [facility] 4.2.7.2.686 Lui as MATERNAL [id number] [facility] & [address] 2021-10-26 2021-10-26 Outpatient Jolynn HAM [facility] [id number] Univers 08:30:00 08:30:00 LATASHA sharma [facility] 2021-10-24 2021-10-24 Orders Doctor BENITEZ 1.2.840.114 [id number] Univers 00:00:00 00:00:00 Only Unassigned, KHURRAM 350.1.13.10 ity of [place] [facility] 4.2.7.2.686 Lui as [id number] [address] 2021-10-13 2021-10-13 Orders Doctor EMMANUEL 1.2.840.114 [id number] Univers 00:00:00 00:00:00 Only Unassigned, KHURRAM 350.1.13.10 ity of [place] [facility] 4.2.7.2.686 Lui as [id number] [address] 2021-10-06 2021-10-06 Routine Hieu Kurtzn [facility] 1.2.840.114 [id number] Univers 15:45:00 15:45:00 HILARIA 350.1.13.10 ity of Visit [facility] 4.2.7.2.[place] [id number] [address] 2021-10-06 2021-10-06 Outpatient R LUCY ONEIDA [facility] [id number] Univers 15:45:00 15:19:54 ity of [facility] 2021-10-06 2021-10-06 Telephone Lu [facility] 1.2.840.114 [id number] Univers 00:00:00 00:00:00 Yuliana MANRIQUE 350.1.13.10 i ty of [place] 4.2.7.2.686 [place] [phone] [address] 2021-10-06 2021-10-06 Telephone Nayeli Solis [facility] 1.2.840.114 [id number] Univers 00:00:00 00:00:00 Johnathan MANRIQUE 350.1.13.10 i ty of [place] 4.2.7.2.686 [place] [phone] [place] dic[address] 2021-09-26 2021-09-28 Inpatient P NAYELI SOLIS [facility] JOSE [id number] Univers 11:50:00 15:10:00 ity of [facility] 2021-09-26 2021-09-28 Hospital Nayeli Solis [facility] 1.2.840.114 [id number] Univers 11:50:00 15:10:00 Encounter Johnathan ABREUMUKESH 350.1.13.10 ity of [place].2.7.2.686 [place] [phone] [place] [address] [place] 2021-09-26 2021-09-26 Anesthesia Anthony [facility] 1.2.840.114 [id number] Univers 17:22:24 17:22:24 Event Elkin Lucas [place] 350.1.13.10 ity of [place] 4.2.7.2.686 [place] [id number] [place] [address] [place] 2021-09-26 2021-09-26 Waste Chopper Ultrasound, Adc [facility] 1. .840.114 [id number] Univers 10:30:00 11:00:00 Visit Ramsey MonicaSadiaMUKESH 350.1 .13.10 ity of [facility] 4.2.7.2.686 [facility] [phone] Il dical [facility] [address] [facility] 2021-09-26 2021-09-26 Outpatient P [facility] [id number] Univers 10:30:00 10:30:00 ity of [facility] 2021-09-26 2021-09-26 Outpatient P RAMSEY [facility] [id number] Univers 10:30:00 10:30:00 GUNNAR it y of SADIA Lucas [facility] 2021-09-26 2021-09-26 Surgery Nayeli Solis [facility] 1..081.529 [id number] Univers 00:00:00 00:00:00 Johnathan ABREUMUKESH 350.1.13.10 i ty of [facility] 4.2.7.2.686 [place] [facility] [id number] [facility] [address] 2021-09-20 2021-09-20 Outpatient R NAYELI SOLIS [facility] [id number] Univers 16:15:00 16:15:00 ity [facility] 2021-09-20 2021-09-20 Outpatient R IRMA NAYELI [facility] [id number] Univers 16:15:00 16:15:00 ity [facility] 2021-09-19 2021-09-19 Patient Doctor [facility] 1.2.840.114 [id number] Univers 00:00:00 00:00:00 Secure Msg Unassigned HIL[place] 350.1.13.10 ity of [place] [facility] 4.2.7.2.686 [place] [id number] Il dical NAL [address] [place] [address] 2021-09-06 2021-09-06 Outpatient R [facility] [id number] Univers 09:15:00 09:15:00 ity [facility] 2021-09-04 2021-09-04 Outpatient R NAYELI SOLIS [facility] [id number] Univers 15:00:00 16:07:15 ity [facility] 2021-09-04 2021-09-04 Nurse Nurse, [facility] 1.2.840.114 [id number] Univers 15:00:00 16:07:15 Visit Nayeli Solis Johnathan MANRIQUE 350.1.13.10 ity of [facility] 4.2.7.2.686 [place] [phone] Il dical NAL [address] [place] [address] 2021-09-04 2021-09-04 Outpatient R [facility] [id number] Univers 10:00:00 10:00:00 ity [facility] 2021-09-01 2021-09-01 Case Nayeli Solis [facility] 1.2.232.147 [id number] Univers 00:00:00 00:00:00 Management Cam [place] 350.1.13.10 ity of [place] 4.2.7.2.686 [place] [id number] Il dical NAL [address] [place] [address] 2021-08-31 2021-08-31 Outpatient R LU [facility] [id number] Univers 16:15:00 16:47:37 YULIANA itkristian [facility] 2021-08-31 2021-08-31 Routine Lu [facility] 1.2.428.371 [id number] Univers 16:15:00 16:47:37 Yuliana MANRIQUE 350.1.13.10 ity of Visit [place] 4[place]2.7.2.686 [place] [phone] Il dical NAL [address] [facility] 2021-08-30 2021-08-30 Waste Chopper Pob, [facility] 1.2.8 40.114 [id number] Univers 15:45:00 16:00:00 Visit Irma Nayeli Johnathan MANRIQUE 350.1.13.10 ity of [facility] 4.2.7.2.686 [place] [phone] Il dical NAL [address] [facility] 2021-08-30 2021-08-30 Outpatient R IRMA [facility] [id number] Univers 15:45:00 15:45:00 ity of [facility] 2021-08-30 2021-08-30 Outpatient R IRMA [facility] [id number] Univers 15:45:00 15:45:00 ity [facility] 2021-08-08 2021-08-08 Outpatient R [facility] [id number] Univers 13:00:00 13:00:00 ity [facility] 2021-08-03 2021-08-03 Routine Irma [facility] 1.2.877.585 [id number] Univers 16:00:00 16:00:00 Johnathan MANRIQUE 350.1.13.10 ity of Visit [place] 4.2.7.2.686 [place] [id number] Il dical NAL [address] [facility] 2021-08-03 2021-08-03 Outpatient R IRMA NAYELI [facility] [id number] Univers 16:00:00 15:03:03 ity of [facility] 2021-08-01 2021-08-01 Waste Chopper Ultrasound, [facility] 1.2 .840.114 [id number] Univers 09:30:00 10:15:00 Visit Mary Gonzalez 350.1.13.10 ity of [facility] 4.2.7.2.686 [place] [id number] Il dical NAL [address] [facility] 2021-08-01 2021-08-01 Outpatient P LISA [facility] [id number] Univers 09:30:00 09:30:00 [facility] 2021-07-23 2021-07-23 Orders Doctor EMMANUEL 1.2.840.114 [id number] Univers 00:00:00 00:00:00 Only Unassigned, KHURRAM 350.1.13.10 ity of [place] [facility] 4.2.7.2.686 Lui as [id number] [address] 2021-07-06 2021-07-06 Outpatient R [facility] [id number] Univers 14:00:00 14:00:00 YULIANA rodriguez [facility] 2021-07-06 2021-07-06 Outpatient R LU [facility] [id number] Univers 13:00:00 13:34:24 YULIANA [facility] 2021-07-06 2021-07-06 [facility] 1.2.354.847 [id number] Univers 13:00:00 13:34:24 Yuliana MANRIQUE 350.1.13.10 ity of Visit [place] 4.2.7.2.686 [place] [id number] Il dical [address] 2021-06-23 2021-06-23 Waste Chopper 1, [facility] Room [facility] 1.2. 840.114 [id number] Univers 08:30:00 09:30:00 Visit Mary Gonzalez ASSISTANT ART DIRECTOR 350.1.13.10 ity of [facility] 4.2.7.2.686 Lui as MATERNAL [phone] Med ical & CHILD [address] [place] [address] 2021-06-23 2021-06-23 Outpatient P LISA [facility] [id number] Univers 08:30:00 08:30:00 MARY rodriguez [facility] 2021-06-19 2021-06-19 Patient Nayeli Solis [facility] 1.2.867.316 [id number] Univers 00:00:00 00:00:00 Secure Msg Johnathan MANRIQUE 350.1.13.10 ity of [place] 4.2.7.2.686 [place] [phone] Il dical NAL [address] [place] [address] 2021-06-12 2021-06-12 Outpatient R LU [facility] [id number] Univers 16:00:00 16:00:00 YULIANA ity of [facility] 2021-06-12 2021-06-12 Patient Oneida Kurtz [facility] 1.2.840.114 [id number] Univers 00:00:00 00:00:00 Secure Msg [place] 350.1.13.10 ity of WOMEN'S 4.2.7.2.686 [place] HEALTH [id number] [address] 2021-06-12 2021-06-12 Patient Nuvia Garcia [facility] 1.2.840.114 [id number] Univers 00:00:00 00:00:00 Secure Msg A ADAM 350.1.13.10 ity of PEDIATRIC 4.2.7.2.686 Te [facility] [phone] [address] 2021-06-09 2021-06-09 Outpatient R DANI ZHU [facility] [id number] Univers 09:45:00 13:03:01 ity of [facility] 2021-06-09 2021-06-09 Telemedici Nisha Feliz [facility] 1.2.8 40.114 [id number] Univers 09:45:00 13:03:01 ne Visit Dani Zhu ASSISTANT ART DIRECTOR 350.1.13.10 ity of REGIONAL 4.2.7.2.686 Lui as MATERNAL [id number] Med ical & CHILD [address] [place] [address] 2021-06-08 2021-06-08 Routine Nayeli Solis [facility] 1.2.842.373 [id number] Univers 15:30:00 15:39:20 Cam [place] 350.1.13.10 ity of Visit [place] 4.2.7.2.686 [place] [id number] Il dic[address] 2021-06-08 2021-06-08 Outpatient R NAYELI SOLIS [facility] [id number] Univers 15:30:00 15:39:20 ity of [facility] 2021-06-08 2021-06-08 Waste Chopper 2, Adc Lab [facility] 1.2.840.114 [id number] Univers 14:30:00 14:45:00 Visit Nayeli Solis [place] 350.1.13.10 ity of [place] 4.2.7.2.686 [place] [id number] Il dical NAL [address] [facility] 2021-06-08 2021-06-08 Patient Nayeli Solis [place] 1.2.199.476 [id number] Univers 00:00:00 00:00:00 Secure Msg Cam [place] 350.1.13.10 ity of [place] 4.2.7.2.686 [place] [id number] Il dical NAL 134 [facility] 2021-06-07 2021-06-07 Patient Nayeli Solis [facility] 1.2.628.205 [id number] Univers 00:00:00 00:00:00 Secure Msg Cam [place] 350.1.13.10 ity of [place] 4.2.7.2.686 [place] [id number] Il dical NAL [address] [facility] 2021-06-05 2021-06-06 Outpatient X NAYELI SOLIS [facility] JOSE [id number] Univers 20:54:00 14:21:00 ity of [facility] 2021-06-05 2021-06-06 Emergency Nayeli Solis [facility] 1.2.840.114 [id number] Univers 20:54:00 14:21:00 Cam [place] 350.1.13.10 [place] [id number] [address] 2021-05-22 2021-05-22 Patient Doctor [facility] 1.2.840.114 [id number] Univers 00:00:00 00:00:00 Secure Msg Unassigned, [place] 350.1.13.10 ity of [place] [phone] Il dical NAL 134 [facility] 2021-05-19 2021-05-19 Waste Chopper 2, Adc Lab [facility] 1.2.840.114 [id number] Univers 16:00:00 16:15:00 Visit Nayeli Solis [place] 350.1.13.10 ity of [facility] [place] [id number] Il dicagustina [place] 353 [facility] 2021-05-19 2021-05-19 Outpatient R NAYELI SOLIS [facility] [id number] Univers 16:00:00 16:00:00 ity of [facility] 2021-05-19 2021-05-19 Telephone Nayeli Solis [facility] 1.2.840.114 [id number] Univers 00:00:00 00:00:00 Johnathan [place]RIQUE 350.1.13.10 i ty of [facility] [place] [phone] Il dical NAL 134 [facility] 2021-05-15 2021-05-15 Telephone Nayeli Solis [facility] 1.2.840.114 [id number] Univers 00:00:00 00:00:00 Johnathan [place] 350.1.13.10 i [place] [id number] Il dicagustina MONROY [address] [place] [address] 2021-05-11 2021-05-11 Outpatient R LU [facility] [id number] Univers 14:30:00 15:36:41 YULIANA rodriguez [facility] 2021-05-11 2021-05-11 Routine Lu [facility] [id number] [id number] Univers 14:30:00 15:36:41 Yuliana [place]RIQUE 350.1.13.10 [place]y [place] [id number] Il dical NAL [address] [place] [address] 2021-05-08 2021-05-08 Outpatient R LU [facility] [id number] Univers 10:30:00 10:30:00 YULIANA rodriguez [facility] 2021-05-08 2021-05-08 Waste Chopper 2, Adc Lab [facility] 1.2.840.114 [id number] Univers 10:30:00 10:30:00 Visit Yuliana Leigh 350.1.13.10 ity of [facility] [place] [phone] Il dical NAL 353 [facility] [facility] 2021-05-08 2021-05-08 Orders Doctor EMMANUEL 1.2.840.114 [id number] Univers 00:00:00 00:00:00 Only Unassigned, KHURRAM 350.1.13.10 ity of [place] [facility] 4.2.7.2.686 Lui as [phone] [address] 2021-05-03 2021-05-03 Outpatient R [facility] [id number] Univers 10:15:00 10:15:00 ity of [facility] 2021-05-03 2021-05-03 Telephone Nayeli Solis [facility] 1.2.840.114 [id number] Univers 00:00:00 00:00:00 Johnathan MANRIQUE 350.1.13.10 [place] [id number] Il dical NAL 134 [facility] 2021-05-01 2021-05-01 Telephone Nayeli Solis [facility] 1.2.840.114 [id number] Univers 00:00:00 00:00:00 Johnathan MANRIQUE 350.1.13.10 [place] [phone] Il dical NAL 134 [facility] 2021-04-28 2021-04-28 Telephone Nayeli Solis NERAJ 1.2.840.114 [id number] Univers 00:00:00 00:00:00 Johnathan ABREUTON 350.1.13.10 i [place] [phone] Il dical NAL 134 [facility] 2021-04-24 2021-04-24 Waste Chopper 2, Adc Lab [facility] 1.2.840.114 [id number] Univers 11:00:00 11:15:00 Visit Nayeli Solis 350.1.13.10 ity of [facility] [place] [phone] Il dical NAL 353 [facility] 2021-04-24 2021-04-24 Outpatient R NAYELI SOLIS [facility] [id number] Univers 11:00:00 11:00:00 ity of [facility] 2021-04-13 2021-04-13 Outpatient R NAYELI SOLIS [facility] [id number] Univers 13:00:00 14:16:00 ity of [facility] 2021-04-13 2021-04-13 Routine Nayeli Solis [facility] 1.2.693.153 [id number] Univers 13:00:00 14:16:00 Cam HILARIA 350.1.13.10 ity of [place] [phone] Il dical NAL 134 [facility] 2021-04-07 2021-04-07 Waste Chopper 2, Adc Lab [facility] 1.2.840.114 [id number] Univers 09:15:00 09:20:24 Visit Nayeli Solis HILARIA 350.1.13.10 ity of [place] [phone] Il dical NAL 353 [facility] 2021-04-07 2021-04-07 Outpatient R NAYELI SOLIS [facility] [id number] Univers 09:15:00 09:15:00 ity of [facility] 2021-04-07 2021-04-07 Case Nayeli Solis [facility] 1.2.840.114 [id number] Univers 00:00:00 00:00:00 Management Cam ADAM 350.1.13.10 ity [place] [phone] [facility] [address] [place] 2021-03-24 2021-03-24 Orders Doctor EMMANUEL 1.2.840.114 [id number] Univers 00:00:00 00:00:00 Only Unassigned, KHURRAM 350.1.13.10 ity of [place] [facility] 4.2.7.2.686 Lui as [phone] [facility] [address] 2021-03-21 2021-03-21 Outpatient R [facility] [id number] Univers 08:00:00 08:00:00 ity of [facility] 2021-03-20 2021-03-20 Patient Doctor EMMANUEL 1.2.840.114 [id number] Univers 00:00:00 00:00:00 Secure Msg Unassigned, KHURRAM 350.1.13.10 ity of [place] [facility] 4.2.7.2.686 Lui as [phone] [facility] [address] [place] 2021-03-16 2021-03-16 Outpatient R IRMA NAYELI [facility] [id number] Univers 14:30:00 15:45:46 ity of [facility] 2021-03-16 2021-03-16 Initial Irma [facility] 1.2.823.432 [id number] Univers 14:30:00 15:45:46 Johnathan MANRIQUE 350.1.13.10 ity of [place] [phone] Il dical NAL [address] [place] [address] 2021-03-16 2021-03-16 Orders Doctor EMMANUEL 1.2.840.114 [id number] Univers 00:00:00 00:00:00 Only Unassigned, KHURRAM 350.1.13.10 ity of [place] [facility] 4.2.7.2.686 Lui as [phone] [facility] [address] [place] 2021-03-16 2021-03-16 Letter Nayeli Solis [facility] 1.2.532.673 [id number] Univers 00:00:00 00:00:00 (Out) Johnathan MANRIQUE 350.1.13.10 i ty [place] [phone] Il dical NAL [address] [place] [address] 2021-01-03 2021-01-03 Outpatient R ONEIDA KURTZ [facility] [id number] Univers 10:45:00 10:45:00 ity of [facility] 2020-10-27 2020-10-27 Outpatient R ONEIDA KURTZ [facility] [id number] Univers 08:00:00 08:00:00 ity of [facility] 2020-10-24 2020-10-24 Outpatient ONEIDA URIBE [facility] [id number] Univers 13:45:00 13:45:00 ity of [facility] 2020-10-14 2020-10-14 Patient Doctor CAMPBELL SAENZ 1.2.335.994 [id number] Univers 00:00:00 00:00:00 Secure Msg UnassignedADAM 350.1.13.10 it[place] of [place] [facility] [place] [id number] [address] 2020-10-14 2020-10-14 Patient Oneida Kurtz 1.2.840.114 [id number] Univers 00:00:00 00:00:00 Secure Msg Adam 350.1.13.10 it[place] [id number] [address] 2020-10-03 2020-10-03 Outpatient R LUCYONIEDA [facility] [id number] Univers 11:15:00 11:15:00 ity of [facility] 2020-09-28 2020-09-28 Patient Oneida Kurtz NERAJ Saenz 1.2.840.114 [id number] Univers 00:00:00 00:00:00 Secure Msg Adam 350.1.13.10 [place] [id number] [address] 2020-09-19 2020-09-19 Outpatient R ONEIDA KURTZ [facility] [id number] Univers 13:00:00 13:00:00 ity of [facility] 2020-09-15 2020-09-15 Outpatient R ONEIDA KURTZ [facility] [id number] Univers 08:15:00 08:15:00 ity of [facility] 2020-09-12 2020-09-12 Orders Doctor EMMANUEL 1.2.840.114 [id number] Univers 00:00:00 00:00:00 Only Unassigned, KHURRAM 350.1.13.10 ity of [place] [facility] 4.2.7.2.686 Lui as [phone] [address] 2020-08-30 2020-08-30 Outpatient R ONEIDA KURTZ [facility] [id number] Univers 14:30:00 14:30:00 ity of [facility] 2020-08-22 2020-08-25 Hospital Oneida Kurtz [facility] 1.2.840.114 [id number] Univers 18:31:00 14:15:00 Encounter Hilaria 350.1.13.10 ity of [place] 4.2.7.2.686 [facility] [phone] [place] [address] [place] 2020-08-24 2020-08-24 Anesthesia Lorelei [facility] 1.2.840.114 [id number] Univers 20:02:47 20:02:47 Event Nahun Manrique 350.1.13.10 i ty of [place] 4.2.7.2.686 [facility] [phone] [address] 2020-08-23 2020-08-24 Anesthesia Conrad Pritchard [facility] 1.2.84 0.114 [id number] Univers 20:45:00 13:15:00 Event Tata [place] 350.1.13.10 ity of [place] 4.2.7.2.686 [facility] [phone] [address] 2020-08-22 2020-08-22 Outpatient R ONEIDA KURTZ [facility] [id number] Univers 16:15:00 16:15:00 ity of [facility] 2020-08-15 2020-08-15 Outpatient R ONEIDA KURTZ [facility] [id number] Univers 13:30:00 13:30:00 ity of [facility] 2020-08-15 2020-08-15 Orders Doctor BENITEZ 1.2.840.114 [id number] Univers 00:00:00 00:00:00 Only Unassigned, KHURRAM 350.1.13.10 ity of [place] [facility] 4.2.7.2.686 Lui [id number] [address] 2020-07-28 2020-07-28 Outpatient R ONEIDA KURTZ [facility] [id number] Univers 13:00:00 13:00:00 ity of [facility] 2020-07-20 2020-07-20 Waste Chopper Ultrasound, Bhavna [facility] 1.2 .840.114 [id number] Univers 11:29:12 11:59:12 Visit Paradise Meza ASSISTANT ART DIRECTOR 350.1.13.10 ity of [facility] 4.2.7.2.686 Lui as MATERNAL [phone] [facility] ical & CHILD [address] [place] [address] 2020-07-20 2020-07-20 Outpatient P [facility] [id number] Univers 11:30:00 11:30:00 ity of [facility] 2020-07-14 2020-07-14 Outpatient R ONEIDA KURTZ [facility] [id number] Univers 13:30:00 13:30:00 ity [facility] 2020-06-30 2020-06-30 Waste Chopper Jett Posey [facility] Main [facility] 1.2.8 40.114 [id number] Univers 12:32:56 12:47:56 Visit Oneida Kurtz [place] 350.1.13.10 ity [facility] [place] [phone] Il dical [address] 2020-06-30 2020-06-30 Outpatient R ONEIDA KURTZ [facility] [id number] Univers 11:15:00 11:15:00 ity [facility] 2020-06-30 2020-06-30 Orders Doctor EMMANUEL 1.2.840.114 [id number] Univers 00:00:00 00:00:00 Only Unassigned, KHURRAM 350.1.13.10 ity of [place] [facility] 4.2.7.2.686 Lui as [phone] [address] 2020-06-20 2020-06-20 Waste Chopper Ultrasound, [facility] 1.2 .840.114 [id number] Univers 08:33:48 09:03:48 Visit Paradise Meza ASSISTANT ART DIRECTOR 350.1.13.10 ity of [facility] 4.2.7.2.686 Lui as MATERNAL [phone] [facility] & CHILD [address] [place] [address] 2020-06-20 2020-06-20 Outpatient P [facility] [id number] Univers 08:45:00 08:45:00 ity of [facility] 2020-06-14 2020-06-14 Outpatient ONEIDA URIBE [facility] [id number] Univers 13:45:00 13:45:00 ity [facility] 2020-05-18 2020-05-18 Waste Chopper Bhavna Nunez [facility] 1.2 .840.114 [id number] Univers 14:39:45 15:39:45 Visit Sadia Hays ASSISTANT ART DIRECTOR 350.1. 13.10 ity of [facility] 4.2.7.2.686 Lui as MATERNAL [phone] Med ical & CHILD [address] [place] [address] 2020-05-18 2020-05-18 Outpatient P [facility] [id number] Univers 13:30:00 13:30:00 ity [facility] 2020-05-17 2020-05-17 Outpatient R ONEIDA KURTZ [facility] [id number] Univers 15:15:00 15:15:00 ity [facility] 2020-05-12 2020-05-12 Orders Doctor EMMANUEL 1.2.840.114 [id number] Univers 00:00:00 00:00:00 Only Unassigned, KHURRAM 350.1.13.10 ity of [place] [facility] 4.2.7.2.686 Lui as [id number] [address] 2020-05-04 2020-05-04 Outpatient P [facility] [id number] Univers 11:00:00 11:00:00 ity [facility] 2020-05-03 2020-05-03 Outpatient R ONEIDA KURTZ [facility] [id number] Univers 08:00:00 08:00:00 ity [facility] 2020-04-21 2020-04-21 Outpatient P [facility] [id number] Univers 08:00:00 08:00:00 ity [facility] 2020-04-07 2020-04-07 Waste Chopper Jett Posey [facility] 1.2.840.114 [id number] 09:56:41 10:11:41 Visit [facility] 350.1.13.10 [place] 4.2.7.2.686 Professio [id number] [address] 2020-04-07 2020-04-07 Waste Chopper Kalpesh, [facility] Lab Main [facility] 1.2.8 40.114 [id number] Univers 09:56:41 10:11:41 Visit Oneida Kurtz 350.1.13.10 ity [facility] [place] [phone] [address] 2020-04-07 2020-04-07 Outpatient R ONEIDA KURTZ [facility] [id number] Univers 08:30:00 08:30:00 ity of [facility] 2020-03-15 2020-03-15 Waste Chopper Kalpesh [facility] 1.2.840.114 [id number] 13:44:30 13:59:30 Visit Lab Main Hilaria 350.1.13.10 [place] 4.2.7.2.686 Professio [phone] [address] 2020-03-15 2020-03-15 Waste Chopper Kalpesh, [facility] Lab Main [facility] 1.2.8 40.114 [id number] [facility] 13:44:30 13:59:30 Visit Oneida Kurtz 350.1.13.10 ity [facility] [place]2.7.2.[place] [phone] [address] 2020-03-15 2020-03-15 Outpatient R ONEIDA KURTZ [facility] [id number] Univers 12:00:00 12:00:00 ity of [facility] 2020-03-15 2020-03-15 Orders Doctor BENITEZ 1.2.840.114 [id number] Univers 00:00:00 00:00:00 Only Unassigned, KHURRAM 350.1.13.10 ity of [place] [facility] 4.2.7.2.686 Lui as [id number] [address] 2020-03-10 2020-03-10 Outpatient R ONEIDA KURTZ [facility] [id number] Univers 10:00:00 10:00:00 ity of [facility] 2020-02-11 2020-02-11 Outpatient R ONEIDA KURTZ [facility] [id number] Univers 14:45:00 14:45:00 ity [facility] 2020-02-11 2020-02-11 Outpatient R ONEIDA KURTZ [facility] [id number] Univers 08:15:00 08:15:00 ity [facility] 2020-01-20 2020-01-20 Oneida Johns [facility] 1.2.840.114 [id number] 00:00:00 00:00:00 [place] 350.1.13.10 [place] 4.2.7.2.686 Professio [phone] [address] 2020-01-20 2020-01-20 Oneida Johns [facility] 1.2.840.114 [id number] Univers 00:00:00 00:00:00 [place] 350.1.13.10 i ty of [place] [phone] Il dical [address] 2020-01-14 2020-01-14 Outpatient R ONEIDA KURTZ [facility] [id number] Univers 14:45:00 14:45:[facility] 2020-01-14 Orders Doctor EMMANUEL 1.2.840.114 [id number] Univers 00:00:00 00:00:00 Only Unassigned, KHURRAM 350.1.13.10 ity of [place] [facility] 4.2.7.2.686 Lui as [phone] [address] Results Test Description Test Time Test Comments Results Result Comments Source POCT GLUCOSE (AUTOMATED) 2022-10-10 02:45:41 Test Item Value Reference Range Interpretation Comme nts POCT GLU (test code = 6292446175) 134 mg/dL 70-110 H Lab Interpretation (test code = 04839-3) Abnormal [facility] OR MARK ONLY - [id number] 07:33:02 Test Item Value Reference Range Interpretation Comments RPR (Qualitative) (test code = Nonreactive Nonreactive 53133-1) Lab Interpretation (test code = Normal 05287-4) [facility] OR MARK ONLY - [id number] 07:33:02 Test Item Value Reference Range Interpretation Comments RPR (Qualitative) (test code = Nonreactive Nonreactive 12288-0) Lab Interpretation (test code = Normal 75635-7) [facility] GLUCOSE (AUTOMATED)2022-10-08 21:27:01 Test Item Value Reference Range Interpretation Comments POCT GLU (test code = 8177025949) 78 mg/dL 70-110 Lab Interpretation (test code = Normal 20142-0) [facility] GLUCOSE (AUTOMATED)2022-10-08 21:27:01 Test Item Value Reference Range Interpretation Comments POCT GLU (test code = 7041226806) 78 mg/dL 70-110 Lab Interpretation (test code = Normal 81556-6) [facility] 1/2 AG-AB WITH [id number] 18:06:44 Test Item Value Reference Range Interpretation Comments HIV 0.11 Negative Semi-quantitative (test code = 44821-9) JOSH (test code = Non-reactive for HIV-1 JOSH) antigen and HIV-1/HIV-2 antibodies. ?No laboratory evidence of HIV infection. ?Repeat in 2-4 weeks if acute HIV infection is suspected. [facility] 1/2 AG-AB WITH [id number] 18:06:44 Test Item Value Reference Range Interpretation Comments HIV 0.11 Negative Semi-quantitative (test code = 99910-2) JOSH (test code = Non-reactive for HIV-1 JOSH) antigen and HIV-1/HIV-2 antibodies. ?No laboratory evidence of HIV infection. ?Repeat in 2-4 weeks if acute HIV infection is suspected. [facility] GLUCOSE (AUTOMATED)2022-10-08 17:45:24 Test Item Value Reference Range Interpretation Comments POCT GLU (test code = 2720249704) 76 mg/dL 70-110 Lab Interpretation (test code = Normal 86202-4) [facility] GLUCOSE (AUTOMATED)2022-10-08 17:45:24 Test Item Value Reference Range Interpretation Comments POCT GLU (test code = 3964913681) 76 mg/dL 70-110 Lab Interpretation (test code = Normal 44749-8) [facility] B Surface [id number] 16:40:30 Test Item Value Reference Range Interpretation Comments HBsAg Semi-Quantitative (test code = 0.10 Negative 5195-3) [facility] Surface [id number] 16:40:30 Test Item Value Reference Range Interpretation Comments HBsAg Semi-Quantitative (test code = 0.10 Negative 5195-3) [facility] (D) IMMUNE [id number] 15:32:24 Test Item Value Reference Range Interpretation Comments RHIG CANDIDATE? No- see comment Patient i s not a (test code = candidate for R hIg- 5188) Patient is Rh Positive.Perfor med at [facility] Laboratory [facility] Blood [address] [place] [address] Free: [phone] A No. [id number] [facility] (D) IMMUNE [id number] 15:32:24 Test Item Value Reference Range Interpretation Comments RHIG CANDIDATE? No- see comment Patient i s not a (test code = candidate for R hIg- 5188) Patient is Rh Positive.Perfor med at [facility] Laboratory [facility] Blood [address] [place], [place] [address]Toll Free: [phone] A No. [id number] [facility] with [id number] 13:19:34 Test Item Value Reference Range Interpretation Comments WBC (test code = 7.94 See_Comment [Automated 5037-2) message] The sy stem which generated this result transmitted reference range : 4.30 - 11.10 10*3/?L. The reference range was not used to interpret this result as normal/abnormal . RBC (test code = 3.97 See_Comment [Automated 128-8) message] The sy stem which generated this [...] RDW-SD (test code = 42.5 fL 39.0-49.9 96505-7) RDW-CV (test code = 14.3 % 12.0-15.5 788-0) PLT (test code = 370 See_Comment H [Automated 777-3) message] The sy stem which generated this result transmitted reference range : 166 - 358 10*3/ ?L. The reference r ivelisse was not used to interpret this result as normal/abnormal . MPV (test code = 9.8 fL 9.5-12.9 38983-6) NRBC/100 WBC (test 0.0 See_Comment [Automat ed code = 9482949617) message] The system which generated this result transmitted reference range : 0.0 - 10.0 /100 WBCs. The refer ence range was not u sed to interpret th is result as normal/abnormal . NRBC x10^3 (test code See_Comment [Auto mated = 3571489333) message] The s ystem which generated this result transmitted reference range : 10*3/?L. The reference range was not used to interpret this result as normal/abnormal . GRAN MAT (NEUT) % 65.4 % (test code = 770-8) IMM GRAN % (test code 0.80 % = 8625815176) LYMPH % (test code = 25.6 % 736-9) MONO % (test code = 6.8 % 5905-5) EOS % (test code = 0.9 % 713-8) BASO % (test code = 0.5 % 706-2) GRAN MAT x10^3(ANC) 5.20 10*3/uL 1.88-7.09 (test code = 4793334299) IMM GRAN x10^3 (test 0.06 10*3/uL 0.00-0.06 code = 3191325354) LYMPH x10^3 (test code 2.03 10*3/uL 1.32-3.29 = 731-0) MONO x10^3 (test code 0.54 10*3/uL 0.33-0.92 = 742-7) EOS x10^3 (test code = 0.07 10*3/uL 0.03-0.39 711-2) BASO x10^3 (test code 0.04 10*3/uL 0.01-0.07 = 704-7) Lab Interpretation Abnormal (test code = 48188-3) [facility] with [id number] 13:19:34 Test Item Value Reference Range Interpretation [...] RDW-SD (test code = 42.5 fL 39.0-49.9 29374-6) RDW-CV (test code = 14.3 % 12.0-15.5 788-0) PLT (test code = 370 See_Comment H [Automated 777-3) message] The sy stem which generated this result transmitted reference range : 166 - 358 10*3/ ?L. The reference r ivelisse was not used to interpret this result as normal/abnormal . MPV (test code = 9.8 fL 9.5-12.9 60929-5) NRBC/100 WBC (test 0.0 See_Comment [Automat ed code = 4534066791) message] The system which generated this result transmitted reference range : 0.0 - 10.0 /100 WBCs. The refer ence range was not u sed to interpret th is result as normal/abnormal . NRBC x10^3 (test code See_Comment [Auto mated = 1355692822) message] The s ystem which generated this result transmitted reference range : 10*3/?L. The reference range was not used to interpret this result as normal/abnormal . GRAN MAT (NEUT) % 65.4 % (test code = 770-8) IMM GRAN % (test code 0.80 % = 8511529076) LYMPH % (test code = 25.6 % 736-9) MONO % (test code = 6.8 % 5905-5) EOS % (test code = 0.9 % 713-8) BASO % (test code = 0.5 % 706-2) GRAN MAT x10^3(ANC) 5.20 10*3/uL 1.88-7.09 (test code = 1921626871) IMM GRAN x10^3 (test 0.06 10*3/uL 0.00-0.06 code = 5930961127) LYMPH x10^3 (test code 2.03 10*3/uL 1.32-3.29 = 731-0) MONO x10^3 (test code 0.54 10*3/uL 0.33-0.92 = 742-7) EOS x10^3 (test code = 0.07 10*3/uL 0.03-0.39 711-2) BASO x10^3 (test code 0.04 10*3/uL 0.01-0.07 = 704-7) Lab Interpretation Abnormal (test code = 53761-1) [facility] [id number] 11:18:00 Test Item Value Reference Range Interpretation Comments ABO & RH (test code = 20) O Positive IAT (test code = 1185) Negative [facility] [id number] 11:18:00 Test Item Value Reference Range Interpretation Comments ABO & RH (test code = 20) O Positive IAT (test code = 1185) Negative [facility]2022-[facility]08 10:48:36 Test Item Value Reference Range Interpretation Comments POCT GLU (test code = 0406440570) 124 mg/dL 70-110 H Lab Interpretation (test code = Abnormal 92305-4) [facility]2022-10-08 10:48:36 Test Item Value Reference Range Interpretation Comments POCT GLU (test code = 1594515485) 124 mg/dL 70-110 H Lab Interpretation (test code = Abnormal 84212-4) [facility] AG-AB WITH [id number] 21:34:34 Test Item Value Reference Range Interpretation Comments HIV 0.12 Negative Semi-quantitative (test code = 17771-2) JOSH (test code = Non-reactive for HIV-1 JOSH) antigen and HIV-1/HIV-2 antibodies. ?No laboratory evidence of HIV infection. ?Repeat in 2-4 weeks if acute HIV infection is suspected. [facility] WITH [id number] 17:55:23 Test Item Value Reference Range Interpretation Comments WBC (test code = 7.99 See_Comment [Automated 6690-2) message] The sy stem which generated this result transmitted reference range : 4.30 - 11.10 10*3/?L. The reference range was not used to interpret this result as normal/abnormal . RBC (test code = 3.98 See_Comment [Automated 789-8) message] The sy stem [...] RDW-SD (test code = 44.6 fL 39.0-49.9 38394-0) RDW-CV (test code = 14.6 % 12.0-15.5 788-0) PLT (test code = 330 See_Comment [Automated 777-3) message] The sy stem which generated this result transmitted reference range : 166 - 358 10*3/ ?L. The reference r ivelisse was not used to interpret this result as normal/abnormal . MPV (test code = 9.6 fL 9.5-12.9 26645-0) NRBC/100 WBC (test 0.0 See_Comment [Automat ed code = [id number]) message] The system which generated this result transmitted reference range : 0.0 - 10.0 /100 WBCs. The refer ence range was not u sed to interpret th is result as normal/abnormal . NRBC x10^3 (test code See_Comment [Auto mated = [id number]) message] The s ystem which generated this result transmitted reference range : 10*3/?L. The reference range was not used to interpret this result as normal/abnormal . GRAN MAT (NEUT) % 70.6 % (test code = 770-8) IMM GRAN % (test code 0.50 % = [id number]) LYMPH % (test code = 21.2 % 736-9) MONO % (test code = 5.9 % 5905-5) EOS % (test code = 1.4 % 713-8) BASO % (test code = 0.4 % 706-2) GRAN MAT x10^3(ANC) 5.65 10*3/uL 1.88-7.09 (test code = [id number]) IMM GRAN x10^3 (test 0.04 10*3/uL 0.00-0.06 code = [id number]) LYMPH x10^3 (test code 1.69 10*3/uL 1.32-3.29 = 731-0) MONO x10^3 (test code 0.47 10*3/uL 0.33-0.92 = 742-7) EOS x10^3 (test code = 0.11 10*3/uL 0.03-0.39 711-2) BASO x10^3 (test code 0.03 10*3/uL 0.01-0.07 = 704-7) Lab Interpretation Abnormal (test code = 01360-4) [facility] URINALYSIS W/O SPECIFIC [id number] 16:27:00 Test Item Value Reference Range Interpretation [...] code = 3257) 250 Negative - Negative [facility] GLUCOSE (AUTOMATED)2022-09-02 07:57:56 Test Item Value Reference Range Interpretation Comments POCT GLU (test code = 1133524215) 84 mg/dL 70-110 Lab Interpretation (test code = Normal 95569-4) [facility] URINALYSIS W/O SPECIFIC [id number] 19:12:00 Test Item Value Reference Range Interpretation [...] code = 3257) n/a Negative - Negative [facility] URINALYSIS W/O SPECIFIC [id number] 15:14:00 Test Item Value Reference Range Interpretation [...] code = 3257) n/a Negative - Negative [facility]. METABOLIC PANEL (79932)2022-07-17 20:26:56 Test Item Value Reference Range Interpretation Comments NA (test code = 135 mmol/L 135-145 1492809684) K (test code = 4.2 mmol/L 3.5-5.0 4868027255) CL (test code = 107 mmol/L 98-108 4556374077) CO2 TOTAL (test code = 19 mmol/L 23-31 L 3211982555) AGAP (test code = 9 2-16 9732812211) BUN (test code = 7 mg/dL 7-23 4637510375) GLUCOSE (test code = 133 mg/dL 70-110 H 0852560947) CREATININE (test code = 0.38 mg/dL 0.50-1.04 L 2697408313) TOTAL BILI (test code = 0.3 mg/dL 0.1-1.1 8939987909) CALCIUM (test code = 8.7 mg/dL 8.6-10.6 0252350459) T PROTEIN (test code = 6.4 g/dL 6.3-8.2 1895985025) ALBUMIN (test code = 3.7 g/dL 3.5-5.0 9228140803) ALK PHOS (test code = 81 U/L 34-122 9075753530) ALTv (test code = 47 U/L 5-35 H 1742-6) AST(SGOT) (test code = 41 U/L 13-40 H 7856446387) eGFR (test code = 204.7 mL/min/1.73m2 0364220634) JOSH (test code = JOSH) Association of [...] tests). Lab Interpretation Abnormal (test code = 21481-6) [facility] WITH [id number] 20:12:30 Test Item Value Reference Range Interpretation [...] (test code = 54.2 fL 39.0-49.9 H 61642-7) RDW-CV (test code = 18.2 % 12.0-15.5 H 788-0) PLT (test code = 368 See_Comment H [Automated 777-3) message] The sy stem which generated this result transmitted reference range : 166 - 358 10*3/ ?L. The reference r ivelisse was not used to interpret this result as normal/abnormal . MPV (test code = 9.0 fL 9.5-12.9 L 13424-1) NRBC/100 WBC (test 0.0 See_Comment [Automat ed code = 6210366493) message] The system which generated this result transmitted reference range : 0.0 - 10.0 /100 WBCs. The refer ence range was not u sed to interpret th is result as normal/abnormal . NRBC x10^3 (test code See_Comment [Auto mated = 2114590696) message] The s ystem which generated this result transmitted reference range : 10*3/?L. The reference range was not used to interpret this result as normal/abnormal . GRAN MAT (NEUT) % 74.5 % (test code = 770-8) IMM GRAN % (test code 1.30 % = 1506155185) LYMPH % (test code = 19.0 % 736-9) MONO % (test code = 4.0 % 5905-5) EOS % (test code = 0.8 % 713-8) BASO % (test code = 0.4 % 706-2) GRAN MAT x10^3(ANC) 6.88 10*3/uL 1.88-7.09 (test code = 3144144096) IMM GRAN x10^3 (test 0.12 10*3/uL 0.00-0.06 H code = 4836676732) LYMPH x10^3 (test code 1.75 10*3/uL 1.32-3.29 = 731-0) MONO x10^3 (test code 0.37 10*3/uL 0.33-0.92 = 742-7) EOS x10^3 (test code = 0.07 10*3/uL 0.03-0.39 711-2) BASO x10^3 (test code 0.04 10*3/uL 0.01-0.07 = 704-7) Lab Interpretation Abnormal (test code = 85459-6) [facility] URINALYSIS W/O SPECIFIC [id number] 18:37:00 Test Item Value Reference Range Interpretation [...] code = 3257) n/a Negative - Negative [facility] HCG [id number] 00:16:21 Test Item Value Reference Range Interpretation Comments BETA HCG (test 24869.00 See_Comment [Automated m essage] code = The system [employer] 9043809033) generated this result transmit elmira reference range : Non- fe male and male patien ts: <5 mIU/mL. The reference range was not used to interpret this result as normal/abnormal . JOSH (test code Gestational Age ? ? = JOSH) ?Range (mIU/mL) 1-10 ?Weeks ?24-40955202-34 Weeks ?48155-00481074-68 Weeks ?6530-45346932-68 Weeks ?2848-453003 Biotin has been reported to cause a negative bias, interpret results relative to patient's use of biotin. [facility]. METABOLIC PANEL (03237)2022-05-02 23:32:21 Test Item Value Reference Range Interpretation Comments NA (test code = 135 mmol/L 135-145 0465650415) K (test code = 4.4 mmol/L 3.5-5.0 8124036362) CL (test code = 104 mmol/L 98-108 7241990430) CO2 TOTAL (test code = 21 mmol/L 23-31 L 2288160970) AGAP (test code = 10 2-16 1659736483) BUN (test code = 14 mg/dL 7-23 8001573609) GLUCOSE (test code = 98 mg/dL 70-110 8460087546) CREATININE (test code = 0.67 mg/dL 0.50-1.04 9299072672) TOTAL BILI (test code = 0.5 mg/dL 0.1-1.5 3958807407) CALCIUM (test code = 9.4 mg/dL 8.6-10.6 8889681215) T PROTEIN (test code = 7.4 g/dL 6.3-8.2 4171509749) ALBUMIN (test code = 4.3 g/dL 3.5-5.0 7296760284) ALK PHOS (test code = 73 U/L 34-122 0076606697) ALTv (test code = 69 U/L 5-35 H 1742-6) AST(SGOT) (test code = 55 U/L 13-40 H 7368857232) eGFR (test code = 106.4 mL/min/1.73m2 1133595784) JOSH (test code = JOSH) Association of [...] tests). Lab Interpretation Abnormal (test code = 52500-3) [facility] 23:31:40 Test Item Value Reference Range Interpretation Comments LIPASE (test code = 6602598670) 71 U/L 0-220 Lab Interpretation (test code = Normal 20692-2) [facility] WITH [id number] 23:17:54 Test Item Value Reference Range Interpretation [...] RDW-SD (test code = 45.6 fL 39.0-49.9 52813-5) RDW-CV (test code = 17.0 % 12.0-15.5 H 788-0) PLT (test code = 447 See_Comment H [Automated 777-3) message] The sy stem which generated this result transmitted reference range : 166 - 358 10*3/ ?L. The reference r ivelisse was not used to interpret this result as normal/abnormal . MPV (test code = 9.2 fL 9.5-12.9 L 18172-7) NRBC/100 WBC (test 0.0 See_Comment [Automat ed code = 1286300974) message] The system which generated this result transmitted reference range : 0.0 - 10.0 /100 WBCs. The refer ence range was not u sed to interpret th is result as normal/abnormal . NRBC x10^3 (test code See_Comment [Auto mated = 3350821391) message] The s ystem which generated this result transmitted reference range : 10*3/?L. The reference range was not used to interpret this result as normal/abnormal . GRAN MAT (NEUT) % 65.8 % (test code = 770-8) IMM GRAN % (test code 0.30 % = 4731510360) LYMPH % (test code = 25.3 % 736-9) MONO % (test code = 7.1 % 5905-5) EOS % (test code = 0.9 % 713-8) BASO % (test code = 0.6 % 706-2) GRAN MAT x10^3(ANC) 5.86 10*3/uL 1.88-7.09 (test code = 4867333167) IMM GRAN x10^3 (test 0.03 10*3/uL 0.00-0.06 code = 9264288067) LYMPH x10^3 (test code 2.25 10*3/uL 1.32-3.29 = 731-0) MONO x10^3 (test code 0.63 10*3/uL 0.33-0.92 = 742-7) EOS x10^3 (test code = 0.08 10*3/uL 0.03-0.39 711-2) BASO x10^3 (test code 0.05 10*3/uL 0.01-0.07 = 704-7) Lab Interpretation Abnormal (test code = 30044-4) [facility] [id number] 22:57:00 Test Item Value Reference Range Interpretation Comments POCT PREG (test code = 1605) Postive On board controls acceptable with Present C Line (test code = 3574) POCT PREG LOT # (test code = 3575) [id number] POCT PREG TEST DATE (test 07-25-2022 code = 3576) Lab Interpretation (test code = Normal 26143-5) [facility] [id number] 01:21:00 Test Item Value Reference Range Interpretation [...] FEW MUCU) Urine Source? Clean CatchBASIC METABOLIC [id number] 22:58:00 Test Item Value Reference Range Interpretation [...] mg/dL 8.5-10.1 N = CA) HEPATIC FUNCTION [id number] 22:58:00 Test Item Value Reference Range Interpretation [...] ALKP) to change in reagent. HCG SERUM [id number] 22:58:00 Test Item Value Reference Range Interpretation Comments HCG SERUM BETA 72524.0 mIU/mL 0-3 H Interfering substances (test code [...] NCEPTION 10,000-100,000 MIU/ML - US PREG UT [id number] 22:40:00 [facility])Name: JERMAINE SINGHH : 1995 Sex: F Name: BRIT SINGH [facility] : 1995 Age/S: 26 / F [address] Unit #: [id number] Loc: [place] [address] Phys: Francisco Shepherd MD Acct: [id number] Dis Date: Status: REG ER PHONE #: [phone] Exam Date: 04/01/20222215 FAX #: [phone] Reason: PELVIC PAIN EXAMS: CPT CODE: [id number] US PREG UT TRANSVAGINAL 79405 Dictation location: H3 Early first trimester conducted transvaginally and transabdominally and with Doppler color spectral analysis performed in addition to Doppler grayscale arterial wave form analysis. Exam conducted on 04/01/22 CLINICAL HISTORY:History twin . Patient presenting with vaginal bleeding and pelvic pain. Comparison exam: None from this Currently, there is only a single viable intrauterine gestation with heart rate measured 165 bpm. The crown- rump length measures 2.84 cm consistent with an [...] color spectral flow to the ovaries. No free fluid collections in the cul-de-sac IMPRESSION: Only a solitary viable intrauterine gestation isseen with the crown-rump length consistent with an age of 9 weeks 4 days with demise suspectedof an abnormal appearing gestational sac containing probable yolk sac and debris in the adjacent gestational sac without pole. at 2240 Reported and signed by: Darlene Roman M.D. PAGE 1 Signed Report (CONTINUED) Name: BRIT SINGH [facility] : 1995 Age/S: 26 / F [address] Unit #: [id number] Loc: [place] [address] Phys: Francisco Shepherd MD Acct: [id number] Dis Date: Status: REG ER PHONE #: [phone] Exam Date: 04/01/20222215 FAX #: [phone] Reason: PELVIC PAIN EXAMS: CPT CODE:[id number] US PREG UT TRANSVAGINAL 03614 (Continued) CC: Francisco Shepherd MD Technologist: Christi Edmond RDMS Trnscb Date/Time: 04/01/2022 (2239) [email or web address] Orig Print D/T: S: 04/01/2022 (2242) Probe: [id number] PAGE 2 Signed Report- DUP AB/PEL/SC [id number] 22:40:00 [facility] 1995 Sex: F Name: BRIT SINGH [facility] : 1995 Age/S: 26 / F [facility] Unit #: [id number] Loc: CandeJOAO [address] Phys: Francisco Shepherd MD Acct: [id number] Dis Date: Status: REG ER PHONE #: [phone] Exam Date: 04/01/20222215 FAX #: [phone] Reason: PELVIC PAIN EXAMS: CPT CODE: [id number] DUP AB/PEL/SC COMP 40928 Dictation location: H3 Early first trimester conducted transvaginally and transabdominally and with Doppler color spectral analysis performed in additionto Doppler grayscale arterial wave form analysis. Exam conducted on 04/01/22 CLINICAL HISTORY: History twin . Patient presenting with vaginal bleeding and pelvic pain. Comparison exam: None from this Currently, there is only a single viable intrauterine gestation with heart rate measured 165 bpm. The crown-rump length measures 2.84 cm consistent with an age of 9 weeks 4days and the mean gestational sac diameter is [...] color spectral flow to the ovaries. No free fluid collections in the cul-de-sac IMPRESSION: Only a solitary viable intrauterine gestation is seen w ith the crown-rump length consistent with an age of 9 weeks 4 days with demise suspected of anabnormal appearing gestational sac containing probable yolk sac and debris in the adjacent gestational sac without pole. at 0 Reported and signed by: Darlene Roman M.D. PAGE 1 Signed Report (CONTINUED) Name: BRIT SINGH [facility] : 1995 Age/S: 26 / F [address] [facility] Unit #: [id number] Loc: [place] [address] Phys: Francisco Shepherd MD Acct: [id number] Dis Date: Status: REG ER PHONE #: [phone] Exam Date: 04/01/20222215 FAX #: [phone] Reason: PELVIC PAIN EXAMS: CPT CODE: [id number] DUP AB/PEL/SC COMP 28400 (Continued) CC: Francisco Shepherd MD Technologist: Christi Edmond RDMS Trnscb Date/Time: 04/01/2022 (2239) [email or web address] Orig Print D/T: S: 04/01/2022 (2242) Probe: PAGE 2 Signed Report- US PREG 1ST [id number] 22:40:00 [facility]Name: BRIT SINGH : 1995 Sex: F Name: BRIT SINGH [facility] : 1995 Age/S: 26 / F [address] Unit #: [id number] Loc: [place] [address] Phys: Francisco Shepherd MD Acct: [id number] Dis Date: Status: REG ERPHONE #: [phone] Exam Date: 04/01/20222215 FAX #: [phone] Reason: VAGINAL BLEEDING/PELVICPAIN EXAMS: CPT CODE: [id number] US PREG 1ST TRIMTR 99587 Dictation location: H3 Early first trimester conducted [...] Second gestational sac containing mixed components without poleor viable . There appears to be a yolk sac in this collection without crown-rump length. Findings are consistent with demise of a second . Normal amount of amniotic fluid correlates with the viable fetus. No gross abnormality is seen of subchorionic hematoma No abnormal adnexallesions. Normal Doppler flow to the ovaries without ovarian torsion. Normal color spectral flow to the ovaries. No free fluid collections in the cul-de-sac [...] 1 Signed Report (CONTINUED) Name: BRIT SINGH [facility] : 1995 Age/S: 26 / F [address] [facility] Unit #: [id number] Loc: [place] [address] Phys: Francisco Shepherd MD Acct: [id number] Dis Date: Status: REG ER PHONE #: [phone] Exam Date: 04/01/20222215 FAX #: [phone] Reason: VAGINAL BLEEDING/PELVIC PAIN EXAMS: CPT CODE: [id number] US PREG 1ST TRIMTR 68146 (Continued) CC: Francisco Shepherd MD Technologist: Christi Edmond Trnscb Date/Time: 04/01/2022 (2239) [email or web address] Orig Print D/T: S: 04/01/2022 (2242) Probe: PAGE 2 Signed ReportPROTHROMBIN [id number] 22:16:00 Test Item Value Reference Range Interpretation [...] (2.5-3.5) IS PATIENT ON ANTICOAGULANTS? NTHROMBOPLASTIN TIME [id number] 22:16:00 Test Item Value Reference Range Interpretation Comments THROMBOPLASTIN TIME PARTIAL 30.7 seconds 23.0-37.0 N (test code = PTT) IS PATIENT ON ANTICOAGULANTS? NCBC W/O [id number] 22:10:00 Test Item Value Reference Range Interpretation [...] = MPV) Type and Screen - ONCE [id number] 23:04:14 Test Item Value Reference Range Interpretation Comments ABO & RH (test code O Positive Performe d at [facility] = 20) Laboratory Serv [facility] [address] [place] [phone] Free: [phone] A No. [id number] IAT (test code = Negative Performed a t [facility] 1185) Laboratory Serv [facility] [address] [place] [address]Jrml Free: [phone] A No. [id number] [facility] [id number] 22:06:00 Test Item Value Reference Range Interpretation Comments POCT PREG (test code = 1605) positive On board controls acceptable with present C Line (test code = 3574) POCT PREG LOT # (test code = 3575) [id number] POCT PREG TEST DATE (test code = 3576) Lab Interpretation (test code = Normal 74711-4) [facility] [id number] 23:10:00 Test Item Value Reference Range Interpretation Comments POCT PREG (test code = 1605) NEGATIVE On board controls acceptable with PRESENT C Line (test code = 3574) POCT PREG LOT # (test code = 3575) [id number] POCT PREG TEST DATE (test 02/24/23 code = 3576) Lab Interpretation (test code = Normal 42933-6) [facility] History and Physical Notes Date/Time Note Provider Source 2022-10-08 07:07:07 8866-11-60F57:07:07Formatting of this note [facility] is different from the original.TRIAGE HISTORY & PHYSICALIDENTIFYING Ciarra Singh is 27 year old, /White, 37w0d, female with SHAHID 10/29/2022, by Last Menstrual Period. : 1995MRN: [id number] Care Physician: PATIENT DOES NOT HAVE A [...] N/A 09/26/2021 Surgeon: Nayeli Solis MD; Location: [facility] OR LOCATION Past Medical History: Diagnosis Date Anemia of mother in , antepartum 07/17/2020 Chlamydia 2012 Chlamydia trachomatis infection of lower genitourinary sites 05/15/2013 Depression, unspecified depression type 08/17/2020 Gestational hypertension, third trimester 08/25/2020 Gonorrhea 2012 Postcoital bleeding 05/14/2013 Pregestational diabetes mellitus, modified [...] ?C (98.2 ?F)] Temp source: Temporal Artery (10/08 05)Pulse: [86-88] Resp: [20] SpO2: [99 %-100 %] [...] in the current . Negative screening.ASSESSMENT AND PLANSbrysonestela Singh is a 27 year old at 37w0d who presents for a repeat CD.Previous CD x 1- admit for repeat CDPregestational DM- FSBG [address] Solis, please see [place] [address]-5Wzluzok and physical ivasXF6317-49-16Z01:03:33History and physical noteTXT1.2.840.784771.1.13.104.2.7.2.64912 9|[id number] for patient qyoe18329-6Mdupzny and physical noteLNUT[address] WmbjUgf[id number] DABDPYYSAXGLWTCQ7079-47-77Q33:03:331.2.840 .360815.1.72.3.15|1.2.840.906933.1.13.104. 2.7.2.727879_1873301811 Progress Notes Date/Time Note Provider Source 2022-09-11 11:15:00 5136-07-84H04:15:00Formatting of this note [facility] might be different from the original.Age: 27 [...] in her life right now. currently in skilled nursing. She has moved out of her house. She recently was fired from her job. States that she worked for at least 35 hrs and has not received pay yet. Offered long term care phlebotomist referral. Consult long term care phlebotomist placed. Previous CD x 1- primary LTCD at 34 wks due to non-reassuring heart tones and oligohydramnios with BPP 4/10 on 09/26/21- Desires repeat CD. delivery x 1- primary CD at 34 wks due to non-reassuring heart tones and oligohydramnios with BPP 4/10 - serologies neg, Rubella non-immune, VZV non-immune, [...] patient to complete it soon. Follow-up on Mon for NST 77046-0Yipzjaxu aosvCB9606-04-39J49:13:47Progress noteTXT1.2.840.447350.1.13.104.2.7.2.20853 9|[id number] for patient [address] AvnoMsvynynbfGlopxyxqeFMQI0223159884OYANKS IAVSDPUVTHGTTGYA9209-91-14Q58:13:471.2.840 .779626.1.72.3.15|1.2.840.467130.1.13.104. 2.7.2.727879_1852699485
[2022-12-18 22:44] LABS: Urine Bacteria 20-50 /HPF (<20); Urine Bilirubin NEGATIVE (Negative); Urine Blood 1+ (Negative); Urine Clarity Extremely Turbid (Clear); Urine Color Colorless (Yellow); Urine Glucose NEGATIVE (Negative); Urine Mucus Slight /HPF (None Seen); Urine Protein TRACE (Negative); Urine RBC 21-50 /HPF (None Seen); Urine Urobilinogen Normal (Normal); Urine pH 5.5 (5.0-7.0)
--- NOTE | 2022-12-18 22:49 | ER ---
Nurse's Notes [facility] Name: rBit Singh Age: 27 yrs Sex: Female : 1995 Arrival Date: 12/18/2022 Time: 22:07 Bed 15 Private MD: Diagnosis: Other hemorrhoids;UTI/ Urinary tract infection, site not specified Presentation: 12/18 22:20 Chief complaint: Patient states: diagnosed with hemorrhoids yesterday and today she is cm10 having more pain and some "bad odor down there.". Coronavirus screen: Vaccine status: Patient reports being unvaccinated. Client denies travel out of the [place] in the last 14 days. Ebola Screen: Patient denies travel to an Ebola-affected area in the 21 days before illness onset. No symptoms or risks identified at this time. Initial Sepsis Screen: Does the patient meet any 2 criteria? No. Patient's initial sepsis screen is negative. Does the patient have a suspected source of infection? No. Patient's initial sepsis screen is negative. Risk Assessment: Do you want to hurt yourself or someone else? Patient reports no desire to harm self or others. Onset of symptoms was December 18, 2022. 22:20 Method Of Arrival: Ambulatory cm10 22:20 Acuity: TONI 4 cm10 Triage Assessment: 22:20 General: Appears in no apparent distress. uncomfortable, Behavior is calm, cooperative. jw7 Pain: Complains of pain in gluteal cleft Pain does not radiate. Pain currently is 6 out of 10 on a pain scale. Quality of pain is described as burning, stinging, Pain began 2-3 days ago. Is continuous. EENT: No deficits noted. No signs and/or symptoms were reported regarding the EENT system. Neuro: Navarro Agitation-Sedation Scale (RASS): 0 - Alert and Calm Level of Consciousness is awake, alert, obeys commands, Oriented to person, place, time, situation. Cardiovascular: No deficits noted. Respiratory: No deficits noted. GI: Abdomen is round non-distended, Bowel sounds present X 4 quads. Abd is soft and non tender X 4 quads. : No deficits noted. No signs and/or symptoms were reported regarding the genitourinary system. Derm: No deficits noted. No signs and/or symptoms reported regarding the dermatologic system. Musculoskeletal: No signs and/or symptoms reported regarding the musculoskeletal system. Circulation, motion, and sensation intact. Range of motion: intact in all extremities. Historical: - Allergies: 22:21 No Known Allergies; cm10 - Home Meds: 22:21 None [Active]; cm10 - PMHx: 22:21 None; cm10 - PSHx: 22:21 None; cm10 - Immunization history:: Adult Immunizations unknown. - Social history:: Smoking status: Reported history of juuling and/or vaping. Screenin:59 [facility] ED Fall Risk Assessment (Adult) History of falling in the last 3 months, kl including since admission No falls in past 3 months (0 pts) Confusion or Disorientation No (0 pts) Intoxicated or Sedated No (0 pts) Impaired Gait No (0 pts) Mobility Assist Device Used No (0 pt) Altered Elimination No (0 pt) Score/Fall Risk Level 0 - 2 = Low Risk Oriented to surroundings, Maintained a safe environment. Abuse screen: Denies threats or abuse. Nutritional screening: No deficits noted. Tuberculosis screening: No symptoms or risk factors identified. Assessment: 22:20 General: see triage assessment. jw7 22:58 Reassessment: Patient appears in no apparent distress at this time. No changes from jw7 previously documented assessment. Patient and/or family updated on plan of care and expected duration. Pain level reassessed. Patient is alert, oriented x 3, equal unlabored respirations, skin warm/dry/pink. Vital Signs: 22:20 BP 149 / 69; Pulse 93; Resp 16; Temp 98.2(O); Pulse Ox 99% on R/A; Weight 116.12 kg; cm10 Height 5 ft. 5 in. ; Pain 7/10; 22:20 Body Mass Index 42.60 (116.12 kg, 165.1 cm) cm10 22:20 Pain Scale: Adult 10 ED Course: 22:10 Patient arrived in ED. jj6 22:10 Jana Medina FNP-C [facility] kb 22:10 Rafa Salazar MD is Attending Physician. kb 22:13 Agnes Us RN is Primary Nurse. jw7 22:21 Triage completed. cm10 22:22 Arm band placed on Patient placed in an exam room, on a stretcher. cm10 22:22 Patient has correct armband on for positive identification. Bed in low position. Call jw7 light in reach. 22:59 No provider procedures requiring assistance completed. Patient did not have IV access kl during this emergency room visit. 23:00 Provided Education on: discharge instructions. jw7 Administered Medications: :59 Drug: Magnesium Citrate PO Liquid 300 ml PO once Route: PO; kl 22:59 Drug: Acetaminophen PO 1000 mg PO once Route: PO; Medication: 22:59 VIS not applicable for this client. Outcome: 22:49 Discharge ordered by . trisha 22:59 Discharged to home ambulatory, 22:59 Condition: stable 22:59 Discharge instructions given to patient, Instructed on discharge instructions, follow up and referral plans. medication usage, Demonstrated understanding of instructions, follow-up care, medications, 23:00 Patient left the ED. Signatures: Jana Medina, BICYCLE REPAIRER-C BICYCLE REPAIRER-Ckb Sofia Goldman, RN RN Eugenie Riveroj6 Agnes Us RN RN jwLisa Renee RN RN cm10 Corrections: (The following items were deleted from the chart) 23:00 22:15 BP 149 / 69; Pulse 86bpm; Resp 17bpm; Spontaneous; Pulse Ox 98% RA; jw7 jw7
--- NOTE | 2022-12-18 22:49 | EDPHYS ---
Physician Documentation [facility] Name: Brit Singh Age: 27 yrs Sex: Female : 1995 Arrival Date: 12/18/2022 Time: 22:07 Bed 15 Private MD: ED Physician Rafa Salazar HPI: 12/18 23:43 This 27 yrs old Female presents to ER via Ambulatory with complaints of kb Constipation, Vaginal Discharge, Rectal Bleeding, Incisional Pain. 23:43 Patient is a 27-year-old female who presents for rectal pain and bleeding that started kb 3 days ago. Also reports foul-smelling urine. . Historical: - Allergies: 22:21 No Known Allergies; cm10 - Home Meds: 22:21 None [Active]; cm10 - PMHx: 22:21 None; cm10 - PSHx: 22:21 None; cm10 - Immunization history:: Adult Immunizations unknown. - Social history:: Smoking status: Reported history of juuling and/or vaping. ROS: 23:44 Constitutional: Negative for fever, chills, and weight loss, kb 23:44 Abdomen/GI: Positive for rectal pain, rectal bleeding, 23:44 : Positive for foul smelling urine, 23:44 All other systems are negative, Exam: 23:44 Constitutional: This is a well developed, well nourished patient who is awake, alert, kb and in no acute distress. Head/Face: Normocephalic, atraumatic. ENT: Moist Mucous membranes Cardiovascular: Regular rate Respiratory: Respirations even and unlabored. No increased work of breathing. Talking in full sentences Abdomen/GI: Soft, non-tender. No distention Skin: Warm, dry with normal turgor. Normal color. MS/ Extremity: Pulses equal, no cyanosis. Neurovascular intact. Full, normal range of motion. Neuro: Awake and alert, GCS 15, oriented to person, place, time, and situation. Moves all extremities. Normal gait. 23:44 Abdomen/GI: Rectal exam: hemorrhoid(s), external, with inflammation, with pain, without bleeding, without thrombosis, Vital Signs: 22:20 BP 149 / 69; Pulse 93; Resp 16; Temp 98.2(O); Pulse Ox 99% on R/A; Weight 116.12 kg; cm10 Height 5 ft. 5 in. ; Pain 09/03; 22:20 Body Mass Index 42.60 (116.12 kg, 165.1 cm) cm10 22:20 Pain Scale: Adult cm10 MDM: 22:10 Patient medically screened. kb 23:43 Differential diagnosis: hemorrhoids, fissure, abscess, pilonidal cyst. Data reviewed: kb vital signs, nurses notes. Counseling: I had a detailed discussion with the patient and/or guardian regarding the historical points, exam findings, and any diagnostic results supporting the discharge/admit diagnosis, the need for outpatient follow up, a family practitioner, an OB/Gyne specialist, to return to the emergency department if symptoms worsen or persist or if there are any questions or concerns that arise at home. 12/18 22:20 Order name: Test, Urine; Complete Time: 22:45 kb 12/18 22:20 Order name: Urinalysis w/ reflexes; Complete Time: 22:45 kb Administered Medications: 22:59 Drug: Magnesium Citrate PO Liquid 300 ml PO once Route: PO; kl 22:59 Drug: Acetaminophen PO 1000 mg PO once Route: PO; kl Disposition: 12/19 01:06 Co-signature as Attending Physician, Rafa Salazar MD I agree with the assessment sp4 and plan of care. I reviewed the patient's care provided by the Advanced Practice Provider and agree with the diagnosis and treatment plan. Disposition Summary: 12/18/22 22:49 Discharge Ordered Notes: Location: Home kb Condition: Stable kb Diagnosis - Other hemorrhoids kb - UTI/ Urinary tract infection, site not specified kb Followup: kb - With: Emergency Department - When: As needed - Reason: Worsening of condition Followup: kb - With: Private Physician - When: 2 - 3 days - Reason: Recheck today's complaints, Continuance of care, Re-evaluation by your physician Discharge Instructions: - Discharge Summary Sheet kb - Urinary Tract Infection, Adult, [id number] kb - Hemorrhoids, [id number] kb Forms: - Medication Reconciliation Form kb - Thank You Letter kb - Antibiotic Education kb - Prescription Opioid Use kb - Patient Portal Instructions kb - Leadership Thank You Letter kb Prescriptions: - Macrobid 100 mg Oral Capsule - take 1 capsule ORAL route every 12 hours for 10 days; 20 capsule; Refills: 0, kb Product Selection Permitted Signatures: Dispatcher [employer] EDJana Leonardo, NILES-C NILES-Sofia Ching, RN RN kl Rafa Salazar MD MD sp4 Lisa Martinez RN RN cm10 Corrections: (The following items were deleted from the chart) 12/18 23:44 23:43 Patient is a 27-year-old female who presents for rectal pain and bleeding.. kb kb
[2022-12-18] MEDS ORDERED: MAGNESIUM CITRATE 300 ML BOT ONE (23:07)
[2022-12-18] MEDS ORDERED: ACETAMINOPHEN 500 MG TAB ONE (23:10)
== END 2022-12-18 23:00 | disposition home or self-care (01) ==
LOC: ER 22:07
DX: K64.8 Other hemorrhoids (principal); N39.0 Urinary tract infection, site not specified
CPT/HCPCS: 81001; 81025

== ENCOUNTER 2024-04-21 19:13 | Emergency (ER) | payer OTHER ==
--- OUTSIDE RECORDS SUMMARY | 2024-04-21 19:24 | XMS REPORT | Continuity of Care Document ---
Author Name Unknown Address [address] [facility] [place] [address] [facility] thconnect Address [address] [place] [address] Care Team Providers Care Trim Setter Helper Name Role Phone Rohit WEEKS, Sahil Primary Care Physician + [phone] Doctor Unassigned, [place] Attending Clinician U sarahi Martinez RN, Talya Covarrubias Attending Clinician Unavail able CHUCK LARA Attending Clinician Unavailable OBI-OBIE, WALLY Attending Clinician Unavailab le OBI-OBIE, WALLY Attending Clinician Unavailab le Pcp, Patient Does Not Have A Attending Clinician ESTRELLITA WYNN Attending Clinician Unavailable ESTRELLITA WYNN Attending Clinician Unavailable MAGNUS GUZMAN Attending Clinician Unavailable KHALIDA PONCE Attending Clinician Unavailable FRANNY BRENNER Attending Clinician Unavailable James CURIEL, Mariel Covarrubias Attending Clinician Franny Doyle Attending Clinician [phone] [facility] Attending Clinician Unavailable Doctor Unassigned, [place] Attending Clinician U VALERIE Mcnamara Attending Clinician Unavailable TOM DOWNS Attending Clinician Unavailable Elias MARTIN Attending Clinician Unavailable Elias Cohn Attending Clinician [phone] OLINDA GALE Attending Clinician Unavailable GRETA FOOTE Attending Clinician Unavailab Greta Patel DO Attending Clinician [phone] NAYELI SOLIS Attending Clinician Unavailable Irma CURIEL, Nayeli Mann Attending Clinician +[phone] Yojana Parker MD Attending Clinician + [phone] Cherri Li RN Attending Clinician Unavailable Deon WEEKS, Royal Attending Clinician + [phone] SADIA HAYS Attending Clinician Unaarti ailobie Ultrasound, [facility] Attending Clinician Unavaila ble Ana Anderson MD, [place] Attending Clinician + [facility] Attending Clinician Unavailable YOJANA PARKER Attending Clinician Wilfred Posey, [facility] Lab Main Attending Clinician Unavailmichi Hercules LMSW, Nuvia Campbell Attending Clinician +[phone] MONICA NAJERA Attending Clinician Unavailable Monica Najera MD Attending Clinician +[phone] Fellow, J[facility] Attending Clinician UnaJaswinder Curry DO Attending Clinician [phone] JASWINDER VALLE Attending Clinician Unavailable Paradise Meza MD Attending Clinician [phone] PARADISE MEZA Attending Clinician Unavailable PARADISE MEZA Attending Clinician Unavailable AMINA BUITRAGO Attending Clinician Unavailable AMINA BUITRAGO Attending Clinician Unavailable AMINA BUITRAGO Attending Clinician Unavailable Nurse, [facility] Attending Clinician Unavailable ROYAL ATKINSON Attending Clinician Unavaila ble 1, [facility] Attending Clinician Unavailab Mary Dutton MD Attending Clinician [phone] MARY GONZALEZ Attending Clinician Unavailable SEFERINO AMBROSE Attending Clinician Unavailable Seferino Ambrose MD Attending Clinician [phone] Lab, Ang - Db Attending Clinician Unavailable EDGAR OLIVA Attending Clinician Unavailable Edgar Jones Attending Clinician [phone] Francisco Shepherd Attending Clinician Unavailable ANDRES RILEY Attending Clinician Unavail able Only, [facility] Open Access Attending Clinician Unavailable IRVIN EDWARDS Attending Clinician Unavaila Irvin Brush Attending Clinician +- [phone] ДМИТРИЙ NATARAJAN Attending Clinician Unavail able SAMREEN ALEXIS Attending Clinician Unavailable SAMREEN ALEXIS Attending Clinician Unavailable JORDEN BROOKE Attending Clinician Unavailab JORDEN Oakes Attending Clinician Unavailab Eleanor Payne Attending Clinician [phone] ANETTE MORAN Attending Clinician Unavailable MAKAYLA BETTENCOURT Attending Clinician Unavailab Makayla Morgan Attending Clinician + [phone] XANDER SILVA Attending Clinician Unavailable ALISTAIR ZENDEJAS Attending Clinician Unavailable ELEANOR FOOTE Attending Clinician UnavailLatasha Fofana Attending Clinician +[phone] Oneida Kurtz MD Attending Clinician +[phone] NICA CARPENTER Attending Clinician Unavailab le [place], [facility] Tem Attending Clinician Bonny LATASHA Rios Attending Clinician UnavailONEIDA Joe Attending Clinician Unavailable Yuliana Leigh PA-C Attending Clinician [phone] Elkin Cruz MD Attending Clinician + [phone] Ultrasound, [facility] Attending Clinician Unavaila priscilla Nurse, [facility] Attending Clinician Un available YULIANA LEIGH Attending Clinician Unavailable Case RN, Nuvia Mckinney Attending Clinician Unavailable DANI ZHU Attending Clinician Unavailable Nisha Feliz Attending Clinician Unavailmichi Zhu MD, Dani Sanchez Attending Clinician +[phone] Nahun Moseley CRNA Attending Clinician + [phone] Francheska Yip MD, Leonard Attending Clinician + [phone] Tata Cowan MD Attending Clinician +[phone] YOJANA PARKER Admitting Clinician NAYELI Mayorga Admitting Clinician Unavailable OLINDA GALE Admitting Clinician Unavailable Irma CURIEL, Nayeli Mann Admitting Clinician +[phone] MONICA NAJERA Admitting Clinician Unavailable Monica Najera MD Admitting Clinician +[phone] EDGAR OLIVA Admitting Clinician Unavailable Physician, No Primary or Family Admitting Clinic huy Unavailable IRVIN EDWARDS Admitting Clinician Unavaila JORDEN Grant Admitting Clinician UnavailMAKAYLA Irving Admitting Clinician Unavailab Oneida Romero MD Admitting Clinician [phone] Payers Payer Name Policy Type Policy Number Effective Date Expirati on Date Source [facility] [id number] 2021 00:00:00 [facility] [id number] 2019 00:00:00 [place] [id number] 2023 00:00:00 [facility] [id number] 2011 00:00:00 Problems Condition Name Condition Details Condition Category Status Onset Date Resolution Date Last Treatment Date Treating Clinician Comments Source Maternal pregestati onal diabetes classes B through R, antepartum Maternal pregestati onal diabetes classes B through R, antepartum Disease Active 2023-0 8-14 00:00: 00 [facility] 37 weeks gestation of 37 weeks gestation of Disease Active 0 8-14 00:00: 00 [facility] Maternal pregestati onal diabetes classes B through R, antepartum Maternal pregestati onal diabetes classes B through R, antepartum Disease Active 8-14 00:00: 00 [facility] Previous section Previous section Disease Active 620 00:00: 00 [facility] History of delivery, currently , unspecifie d trimester History of delivery, currently , unspecifie d trimester Disease Active 620 00:00: 00 [facility] Pregestati onal diabetes mellitus, 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, modified White class B Disease Active 8-02 00:00: 00 [facility] Liveborn infant, of [place] , born in hospital by delivery Liveborn , of [place] , born in hospital by delivery Disease Active 802 00:00: 00 [facility] Morbid obesity with body mass index of 40.0-49.9 Morbid obesity with body mass index of 40.0-49.9 Disease Active 3-17 00:00: 00 [facility] High risk , antepartum High risk , antepartum Disease Active 2-17 00:00: 00 [facility] History of gestationa l hypertensi on History of gestationa l hypertensi on Disease Active 2-17 00:00: 00 [facility] Depression , unspecifie d depression type Depression , unspecifie d depression type Disease Active 6- 00:00: 00 [facility] Obesity in Obesity in Disease Active 4-05 00:00: 00 [facility] Hemorrhoid s, unspecifie d hemorrhoid type Hemorrhoid s, unspecifie d hemorrhoid type Disease Active 9- 00:00: 00 [facility] 28 weeks gestation of 28 weeks gestation of Disease Resolve d 2022-0 6-15 00:00: 00 2022-08-14 00:00:00 2022-08-14 18:02:18 [facility] Non-reassu ring heart tones complicati ng , antepartum Non-reassu ring heart tones complicati ng , antepartum Disease Resolve d 2021-0 8-02 00:00: 00 2021-11-10 00:00:00 2021-11-10 16:15:14 [facility] 34 weeks gestation of 34 weeks gestation of Disease Resolve d 2021-0 8-02 00:00: 00 2021-11-10 00:00:00 2021-11-10 16:15:14 [facility] Oligohydra mnios in third trimester, single or unspecifie d fetus Oligohydra mnios in third trimester, single or unspecifie d fetus Disease Resolve d 2021-0 8-02 00:00: 00 2021-11-10 00:00:00 2021-11-10 16:15:14 [facility] Dyspepsia Dyspepsia Disease Resolve d 2021-0 4-12 00:00: 00 2021-11-10 00:00:00 2021-11-10 16:15:14 [facility] Nausea and vomiting in prior to 22 weeks gestation Nausea and vomiting in prior to 22 weeks gestation Disease Resolve d 2021-0 4-12 00:00: 00 2021-11-10 00:00:00 2021-11-10 16:15:14 [facility] Acute cystitis without hematuria Acute cystitis without hematuria Disease Resolve d 2021-0 4-12 00:00: 00 2021-11-10 00:00:00 2021-11-10 16:15:14 [facility] Nausea and vomiting in prior to 22 weeks gestation Nausea and vomiting in prior to 22 weeks gestation Disease Resolve d 2021-0 4-12 00:00: 00 2021-11-10 00:00:00 2021-11-10 16:15:14 [facility] Liveborn , of [place] , born in hospital by vaginal delivery Liveborn , of [place] , born in hospital by vaginal delivery Disease Resolve d 2020-0 7-01 00:00: 00 2021-11-10 00:00:00 2021-11-10 16:15:14 [facility] Oligohydra mnios in third trimester Oligohydra mnios in third trimester Disease Resolve d 2020-0 6-28 00:00: 00 2021-11-10 00:00:00 2021-11-10 16:15:14 [facility] Need for HPV vaccinatio n Need for HPV vaccinatio n Disease Resolve d 0 4-05 00:00: 00 2021-11-10 00:00:00 2021-11-10 16:15:14 [facility] 18 weeks gestation of 18 weeks gestation of Disease Resolve d 0 4-12 00:00: 00 2021-08-03 00:00:00 2021-08-03 19:02:25 [facility] Gestationa l hypertensi on, third trimester Gestationa l hypertensi on, third trimester Disease Resolve d 0 7-01 00:00: 00 2021-03-16 00:00:00 2021-03-16 15:46:13 [facility] Anemia of mother in , antepartum Anemia of mother in , antepartum Disease Resolve d 0 5-23 00:00: 00 2021-03-16 00:00:00 2021-03-16 15:45:58 [facility] Internal thrombosed hemorrhoid s Internal thrombosed hemorrhoid s Disease Resolve d 0 5-23 00:00: 00 2021-03-16 00:00:00 2021-03-16 15:46:06 [facility] Uterine size-date discrepanc y in third trimester Uterine size-date discrepanc y in third trimester Disease Resolve d 0 5-23 00:00: 00 2021-03-16 00:00:00 2021-03-16 15:45:46 [facility] Round ligament pain Round ligament pain Disease Resolve d 0 5-06 00:00: 00 2021-03-16 00:00:00 2021-03-16 15:45:46 [facility] Pneumonia due to COVID-19 virus Pneumonia due to COVID-19 virus Disease Resolve d 23 00:00: 00 2021-03-16 00:00:00 2021-03-16 15:46:19 [facility] Supervisio n of normal first , antepartum Supervisio n of normal first , antepartum Disease Resolve d 2019-02 218 00:00: 00 2021-03-16 00:00:00 2021-03-16 15:45:54 [facility] Encounter for induction of labor Encounter for induction of labor Disease Resolve d 05-30 00:00: 00 2021-03-16 00:00:00 2021-03-16 15:45:50 [facility] Risky sexual behavior Risky sexual behavior Disease Resolve d 05-30 00:00: 00 2020-08-22 00:00:00 2020-08-22 17:37:45 [facility] BMI 36.0-36.9, adult BMI 36.0-36.9, adult Disease Resolve d 05-30 00:00: 00 2020-08-22 00:00:00 2020-08-22 21:25:56 [facility] Bacterial vaginosis Bacterial vaginosis Disease Resolve d 03-19 00:00: 00 2020-08-22 00:00:00 2020-08-22 21:25:58 [facility] Depo-Prove ra contracept chen status Depo-Prove ra contracept chen status Disease Resolve d 05-30 00:00: 00 2020-06-30 00:00:00 2020-06-30 12:11:22 [facility] Well woman exam Well woman exam Disease Resolve d 11-22 00:00: 00 2017-05-30 00:00:00 2017-05-30 15:34:50 [facility] Screen for STD (sexually transmitte d disease) Screen for STD (sexually transmitte d disease) Disease Resolve d 05-08 00:00: 00 2017-05-30 00:00:00 2017-05-30 15:34:53 [facility] Obese Obese Disease Resolve d 05-08 00:00: 00 2017-05-30 00:00:00 2017-05-30 15:35:00 [facility] Depo contracept ion Depo contracept ion Disease Resolve d 08-25 00:00: 00 2017-05-30 00:00:00 2017-05-30 15:35:04 [facility] BV (bacterial vaginosis) BV (bacterial vaginosis) Disease Resolve d 09-15 00:00: 00 2015-11-23 00:00:00 2015-11-23 11:44:49 [facility] Other specified contracept chen management Other specified contracept chen management Disease Resolve d 09-15 00:00: 00 2015-05-09 00:00:00 2015-05-09 20:34:20 [facility] Chlamydia trachomati s infection of lower genitourin penny sites Chlamydia trachomati s infection of lower genitourin penny sites Disease Resolve d 05-15 00:00: 00 2015-05-09 00:00:00 2015-05-09 20:34:09 [facility] Postcoital bleeding Postcoital bleeding Disease Resolve d 05-14 00:00: 00 2015-05-09 00:00:00 2015-05-09 20:34:08 [facility] Contact with or exposure to sexually transmitte d disease Contact with or exposure to sexually transmitte d disease Disease Resolve d 2012-02 00:00: 00 2015-05-09 00:00:00 2021-09-10 00:26:49 [facility] Encounter for routine gynecologi silver examinatio n Encounter for routine gynecologi sliver examinatio n Disease Resolve d 08-25 00:00: 00 2015-05-09 00:00:00 2021-09-10 00:25:17 [facility] Not immune to rubella Not immune to rubella Disease Resolve d 08-25 00:00: 00 2015-05-09 00:00:00 2021-09-10 00:25:18 [facility] Allergies, Adverse Reactions, Alerts Allergy Name Allergy Type Status Severity Reaction(s) Onset Date Inactive Date Treating Clinician Comments Source No Known Allergie s DA Active [facility] 04-01 00:00: [facility] NO KNOWN ALLERGIE S Drug Class Active [facility] Family History Family Member Diagnosis Comments Start Date Stop Date Sourc e Maternal grandmother Diabetes [facility] Paternal grandmother Cancer [facility] Social History Social Habit Start Date Stop Date Quantity Comments Source ASSERTION 2022-02-05 00:00:00 [facility] History SDOH Alcohol Frequency [facility] History SDOH Alcohol Std Drinks [facility] History SDOH Alcohol Binge [facility] Tobacco use and exposure 2023-07-15 00:00:00 2023-07-15 00:00:00 Smokeless tobacco non-user [facility] Alcoholic beverage intake 2023-07-15 00:00:00 2023-07-15 00:00:00 0 /d [facility] Alcohol intake 2023-05-20 00:00:00 2023-05-20 00:00:00 0 /d [facility] Exposure to SARS-CoV-2 (event) 2022-07-07 00:00:00 2022-07-17 13:30:00 Not sure [facility] History of Social function 2021-11-10 00:00:00 2021-11-10 00:00:00 [facility] Alcohol Comment 2021-03-16 00:00:00 2021-03-16 00:00:00 ocassional [facility] History of tobacco use 2019-12-24 00:00:00 Cigarette Smoker [facility] Sex assigned at 1995 00:00:00 1995 00:00:00 [facility] Smoking Status Start Date Stop Date Source Ex-smoker 2023-07-15 00:00:00 2023-07-15 00:00:00 [facility] Medications Ordered Medication Name Filled Medication Name Start Date Stop Date Current Medication? Ordering Clinician Indication Dosage Frequency Signature (SIG) Comments Components Source semaglutide (OZEMPIC) 0.25 mg or 0.5 mg(2 mg/1.5 mL) PnIj 07-14 00:00: 00 Yes [id number] .25mg inject 0.25 mg under the skin weekly. [facility] naproxen (NAPROSYN) 500 mg tablet 07-14 00:00: 00 07-25 04:59 :00 No [id number] 500mg Take 1 tablet by mouth in the morning and 1 tablet in the evening. Take with meals. Do all this for 10 days. [facility] nitroglycer in 0.4 % (w/w) ointment 08 00:00: 00 07-14 00:00 :00 No [id number] 1[in_us ] Insert 1 Inch into rectum every 12 (twelve) hours for 42 days. [facility] ibuprofen 600 mg tablet 05-19 00:00: 00 07-14 00:00 :00 No [id number] 600mg Take 1 tablet by mouth every 6 (six) hours as needed for Pain (scale 4-6). [facility] ondansetron (ZOFRAN-ODT ) disintegrat ing tablet 4 mg 05-09 21:45: 00 05-09 20:54 :00 No 4mg 4 mg, Oral, ONCE, 1 dose, On Sat05/10/23 at 1645, Routine [facility] acetaminoph en-codeine (TYLENOL #3) 300-30 mg tablet 1 tablet 05-09 21:00: 00 05-09 20:56 :00 No 1{tbl} 1 tablet, Oral, ONCE, 1 dose, On Sat05/10/23 at 1600, JOSI [facility] ondansetron (ZOFRAN-ODT ) disintegrat ing tablet 4 mg 2022-02 23:30: 00 02-20 22:38 :00 No 4mg 4 mg, Oral, ONCE, 1 dose, On Sat02/20/23 at 1730, Routine [facility] ondansetron 4 mg disintegrat ing tablet 2022-02 00:00: 00 07-14 00:00 :00 No [id number] 4mg Take 1 tablet by mouth every 8 (eight) hours as needed for Nausea and Vomiting (N/V). [facility] ibuprofen (IBU) tablet 600 mg 10-10 05:00: 00 Yes 600mg 600 mg, Oral, Q6H ABX, First dose on Sat10/10/22 at 0000, Until Discontinu ed, Routine [facility] HYDROcodone -acetaminop hen 5-325 mg tablet 10-10 00:00: 00 10-18 04:59 :00 No [id number] 1{tbl} Take 1 tablet by mouth every 6 (six) hours as needed for Pain (scale 7-10) (Alternate with Ibuprofen) for up to 7 days. Indication s: acute pain [facility] ibuprofen (IBU) tablet 600 mg 10-09 23:00: 00 Yes 600mg 600 mg, Oral, Q6H ABX, First dose (after last modificati on) on Sat10/09/22 at 1800, Until Discontinu ed, Routine [facility] ferrous sulfate (IRON ORAL) 10-09 07:05: 10-09 00:00 :00 No Take by mouth. [facility] ketorolac (TORADOL) injection 30 mg 10-09 05:00: 00 10-10 04:59 :00 No 30mg 30 mg, Slow IV Push, Q6H ABX, 4 doses, First dose on Sat10/09/22 at 0000, Last dose on Sat10/09/22 at 1800, Routine [facility] acetaminoph en 325 mg tablet 10-09 00:00: 00 07-14 00:00 :00 No [id number] 650mg Take 2 tablets by mouth every 6 (six) hours as needed for Pain (scale 1-3) or Pain (scale 4-6). [facility] vitamin w/FA tablet 10-09 00:00: 00 07-14 00:00 :00 No [id number] 1{tbl} Take 1 tablet by mouth in the morning. [facility] docusate 100 mg capsule 10-09 00:00: 00 07-14 00:00 :00 No [id number] 200mg Take 2 capsules by mouth once daily as needed for Constipati on. [facility] ferrous sulfate 325 mg (65 mg iron) tablet 10-09 00:00: 00 07-14 00:00 :00 No [id number] 325mg Take 1 tablet by mouth in the morning and 1 tablet in the evening. [facility] ibuprofen 600 mg tablet 10-09 00:00: 00 07-14 00:00 :00 No [id number] 600mg Take 1 tablet by mouth every 6 (six) hours as needed (Pain). Take with food or milk. [facility] gabapentin 300 mg capsule 10-09 00:00: 00 10-15 04:59 :00 No [id number] 300mg Take 1 capsule by mouth in the morning and 1 capsule at noon and 1 capsule in the evening. Do all this for 5 days. [facility] acetaminoph en (TYLENOL) tablet 650 mg 10-08 23:00: 00 Yes 650mg 650 mg, Oral, Q6H ABX, First dose on Sat10/08/22 at 1800, Until Discontinu ed, Routine [facility] gabapentin (NEURONTIN) capsule 300 mg 10-08 19:00: 00 Yes 300mg 300 mg, Oral, TID, First dose on Sat10/08/22 at 1400, Until Discontinu ed, Routine [facility] HYDROcodone -acetaminop hen (NORCO 5) 5-325 mg tablet 1 tablet 10-08 17:00: 00 Yes 1{tbl} 1 tablet, Oral, Q6HPRN, Starting on Sat10/08/22 at 1200, Until Discontinu ed, Routine, Pain (scale 7-10), Alternate with Ibuprofen [facility] lactated ringers IV infusion 1,000 mL 10-08 14:15: 00 10-08 23:37 :00 No 1000mL at 125 mL/hr, 1,000 mL, IV Infusion, ONCE, 1 dose, On Sat10/08/22 at 0915, Routine [facility] rho(D) immune globulin (RHOGAM) syringe 300 mcg 10-08 14:07: 25 Yes 300ug 300 mcg, Intramuscu lar, ONCE, For 1 dose, Conditiona l, Routine [facility] diphenhydrA MINE (BENADRYL) injection 25 mg 10-08 14:07: 17 Yes 25mg 25 mg, Slow IV Push, Q6HPRN, Starting on Sat10/08/22 at 0907, Until Discontinu ed, Routine, Itching [facility] diphenhydrA MINE (BENADRYL) tablet 25 mg 10-08 14:07: 17 Yes 25mg 25 mg, Oral, Q6HPRN, Starting on Sat10/08/22 at 0907, Until Discontinu ed, Routine, Sleep, Itching [facility] ondansetron (ZOFRAN (PF)) injection 4 mg 10-08 14:07: 17 Yes 4mg 4 mg, Slow IV Push, Q8HPRN, Starting on Sat10/08/22 at 0907, Until Discontinu ed, Routine, Nausea and Vomiting (N/V) [facility] bisacodyL (DULCOLAX) suppository 10 mg 10-08 14:07: 17 Yes 10mg 10 mg, Rectal, QDAILYPRN, Starting on Sat10/08/22 at 0907, Until Discontinu ed, Routine, Constipati on [facility] simethicone (GAS RELIEF (SIMETHICON E)) chewable tablet 160 mg 10-08 14:07: 17 Yes 160mg 160 mg, Oral, PC+HSPRN, Starting on Sat10/08/22 at 0907, Until Discontinu ed, Routine, Gas [facility] docusate (COLACE) capsule 200 mg 10-08 14:07: 17 Yes 200mg 200 mg, Oral, QDAILYPRN, Starting on Sat10/08/22 at 0907, Until Discontinu ed, Routine, Constipati on [facility] magnesium hydroxide (MILK OF MAGNESIA) 400 mg/5 mL suspension 30 mL 10-08 14:07: 17 Yes 30mL 30 mL, Oral, QDAILYPRN, Starting on Sat10/08/22 at 0907, Until Discontinu ed, Routine, Constipati on [facility] lactated ringers IV infusion 1,000 mL 10-08 14:07: 17 Yes 1000mL at 125 mL/hr, 1,000 mL, IV Infusion, PRN, 1 dose, Starting on Sat10/08/22 at 0907, Until Discontinu ed, Routine [facility] mupirocin (BACTROBAN OINT) 2 % skin ointment 10-08 13:39: 00 Yes Intra-op [facility] sodium chloride 0.9 % irrigation solution 10-08 12:15: 00 Yes PRN, Starting on Sat10/08/22 at 0715, Until Discontinu ed, Intra-op [facility] Sliding Scale Insulin 10-08 10:19: 09 10-08 14:07 :24 No Subcutaneo us, SEE-INSTRU CTIONS, Starting on Sat10/08/22 at 0519, Until Sat10/08/22 at 0907, Routine [facility] sodium citrate-cit bryson acid (BICITRA) 500-334 mg/5 mL solution 30 mL 10-08 10:19: 09 10-08 12:12 :00 No 30mL 30 mL, Oral, PRE-PROCED URE ONCE, 1 dose, Starting on Sat10/08/22 at 0519, Until Discontinu ed, Routine, Surgery/Pr ocedure [facility] lactated ringers IV infusion 500 mL 10-08 10:19: 10-08 14:07 :24 No 500mL at 999 mL/hr, 500 mL, IV Infusion, PRN - SEE INSTRUCTIO NS, Starting on Sat10/08/22 at 0519, Until Sat10/08/22 at 0907, Routine [facility] NaCl 0.9% (NS) IV infusion 1,000 mL 10-06 00:30: 00 Yes 1000mL at 999 mL/hr, IV Infusion, CONTINUOUS , Starting on Sat10/05/22 at 1930, Until Discontinu ed, Routine [facility] ferrous sulfate (IRON ORAL) 10-05 21:43: 22 Yes Take by mouth. [facility] ferrous sulfate (IRON ORAL) 09-23 02:01: 33 Yes Take by mouth. [facility] ferrous sulfate (IRON ORAL) 09-17 17:46: 57 Yes Take by mouth. [facility] ferrous sulfate (IRON ORAL) 09-11 11:30: 26 Yes Take by mouth. [facility] ferrous sulfate (IRON ORAL) 09-02 05:05: 23 Yes Take by mouth. [facility] ferrous sulfate (IRON ORAL) 08-26 07:04: 45 Yes Take by mouth. [facility] metFORMIN 1,000 mg tablet 08-09 00:00: 00 10-09 00:00 :00 No [id number] 1000mg Take 1 tablet by mouth at bedtime. [facility] ferrous sulfate (IRON ORAL) 08-06 10:13: 29 Yes Take by mouth. [facility] meclizine (TRAVEL-EAS E (MECLIZINE) ) tablet 25 mg 07-17 20:00: 00 07-17 19:53 :00 No 25mg 25 mg, Oral, ONCE, 1 dose, On Sat07/17/22 at 1500, JOSI [facility] Blood Sugar Diagnostic, Disc Strp 07-11 00:00: 00 Yes Check blood sugar 4 times a day as directed. [facility] Lancets Misc 07-11 00:00: 00 Yes Check blood sugars 4 times a day as directed. [facility] Blood-Gluco se Meter (BLOOD GLUCOSE MONITORING) Kit 07-11 00:00: 00 Yes Check blood sugar 4 times daily as directed. Brand per Insurance. [facility] ascorbic acid, vitamin C, 500 mg tablet 07-11 00:00: 00 10-09 00:00 :00 No [id number] 500mg Take 1 tablet by mouth in the morning. [facility] aspirin 81 mg EC tablet 07-11 00:00: 00 10-09 00:00 :00 No [id number] 81mg Take 1 tablet by mouth in the morning. [facility] Alcohol Swabs PadM 07-11 00:00: 00 10-09 00:00 :00 No Apply to area 4 times a day to check blood sugar as directed. [facility] Blood Sugar Diagnostic, Disc Strp 07-11 00:00: 00 10-09 00:00 :00 No Check blood sugar 4 times a day as directed. [facility] Lancets Misc 07-11 00:00: 00 10-09 00:00 :00 No Check blood sugars 4 times a day as directed. [facility] Blood-Gluco se Meter (BLOOD GLUCOSE MONITORING) Kit 07-11 00:00: 00 10-09 00:00 :00 No Check blood sugar 4 times daily as directed. Brand per Insurance. [facility] ferrous sulfate (IRON, FERROUS SULFATE,) 325 mg (65 mg iron) tablet 07-11 00:00: 00 10-09 00:00 :00 No [id number] 325mg Take 1 tablet by mouth in the morning. [facility] ferrous sulfate (IRON, FERROUS SULFATE,) 325 mg (65 mg iron) tablet 07-09 00:00: 00 07-11 00:00 :00 No [id number] 325mg Take 1 tablet by mouth in the morning. [facility] aspirin 81 mg EC tablet 07-09 00:00: 00 07-11 00:00 :00 No [id number] 81mg Take 1 tablet by mouth in the morning. [facility] ascorbic acid, vitamin C, 500 mg tablet 07-09 00:00: 00 07-11 00:00 :00 No [id number] 500mg Take 1 tablet by mouth in the morning. [facility] Alcohol Swabs PadM 07-09 00:00: 00 07-11 00:00 :00 No Apply to area 4 times a day to check blood sugar as directed. [facility] Blood-Gluco se Meter (BLOOD GLUCOSE MONITORING) Kit 07-09 00:00: 00 07-11 00:00 :00 No Check blood sugar 4 times daily as directed. Brand per Insurance. [facility] Blood Sugar Diagnostic, Disc Strp 07-09 00:00: 00 07-11 00:00 :00 No Check blood sugar 4 times a day as directed. [facility] Lancets Misc 07-09 00:00: 00 07-11 00:00 :00 No Check blood sugars 4 times a day as directed. [facility] NaCl 0.9% (NS) bolus infusion 1,000 mL 05-03 00:00: 00 05-03 01:45 :00 No 1000mL at 999 mL/hr, 1,000 mL, IV Infusion, ONCE, 1 dose, On Sat05/02/22 at 1800, JOSI [facility] proMETHazin e (PHENERGAN) 25 mg in NaCl 0.9% (NS) 50 mL IV piggyback 05-02 23:00: 00 05-02 23:05 :00 No 25mg 25 mg, IV Piggyback, ONCE, 1 dose, On Sat05/02/22 at 1700, JOSI [facility] cephALEXin (KEFLEX) 500 mg capsule 05-02 00:00: 00 2023- 03-16 04:59 :00 No [id number] 500mg Take 1 capsule by mouth in the morning and 1 capsule in the evening. Do all this for 7 days. [facility] acetaminoph en-codeine (TYLENOL #3) 300-30 mg tablet 1 tablet 2021-02 10:15: 00 12-30 09:41 :00 No 1{tbl} 1 tablet, Oral, ONCE NOW, 1 dose, On 12/30/21 at 0515, JOSI [facility] dexamethaso ne sod phos PF injection 10 mg 2021-02 09:30: 00 12-30 09:41 :00 No 10mg 10 mg, Intramuscu lar, ONCE, 1 dose, On 12/30/21 at 0430, 1 mL [facility] benzonatate 100 mg capsule 2021-02 00:00: 00 10-09 00:00 :00 No [id number] 100mg Take 1 capsule by mouth 3 (three) times daily as needed for Cough. [facility] amoxicillin -clavulanat e 875-125 mg per tablet 2021-02 00:00: 00 01-07 05:59 :00 No [id number] 1{tbl} Take 1 tablet by mouth every 12 (twelve) hours for 7 days. [facility] NaCl 0.9% (NS) bolus infusion 1,000 mL 2021-02 22:30: 00 12-14 00:44 :00 No 1000mL at 999 mL/hr, 1,000 mL, IV Infusion, ONCE, 1 dose, On Sat12/13/21 at 1730, JOSI [facility] ketorolac (TORADOL) injection 15 mg 2021-02 22:30: 00 12-13 23:58 :00 No 15mg 15 mg, Slow IV Push, ONCE, 1 dose, On Sat12/13/21 at 1730, Routine [facility] famotidine (PEPCID (PF)) injection 20 mg 2021-02 22:30: 00 12-13 23:57 :00 No 20mg 20 mg, Slow IV Push, ONCE, 1 dose, On Sat12/13/21 at 1730, JOSI [facility] maalox:diph enhydrAMINE :lidocaine 2 % viscous 1:1:1 (FIRST-MOUT HWASH BLM) oral suspension 15 mL 2021-02 22:30: 00 12-13 23:58 :00 No 15mL 15 mL, Oral, ONCE, 1 dose, On Sat12/13/21 at 1730, [facility] hydrocortis one-pramovi ne rectal foam 2021-02 00:00: 00 10-09 00:00 :00 No [id number] 1{appli cator} Insert 1 Applicator into rectum in the morning and 1 Applicator in the evening. [facility] dicyclomine 20 mg tablet 2021-02 00:00: 00 10-09 00:00 :00 No [id number] 20mg Take 1 tablet by mouth 4 (four) times daily as needed for Abdominal pain. [facility] polyethylen e glycol 3350 (MIRALAX) 17 gram powder 2021-02 00:00: 00 01-13 05:59 :00 No [id number] 1{packe t} Take 1 Packet by mouth in the morning and 1 Packet in the evening. Do all this for 30 days. [facility] omeprazole 40 mg capsule 2021-02 00:00: 00 01-13 05:59 :00 No [id number] 40mg Take 1 capsule by mouth in the morning for 30 days. [facility] metroNIDAZO LE 500 mg tablet 11-13 00:00: 00 11-21 04:59 :00 No [id number] 500mg Take 1 tablet by mouth in the morning and 1 tablet in the evening. Do all this for 7 days. [facility] SERTraline 100 mg tablet 11-10 00:00: 00 12-13 04:59 :00 No [id number] Take 0.5 tablets by mouth daily for 4 days, THEN 1 tablet daily for 28 days. [facility] vitamin w/FA tablet 09-28 00:00: 00 Yes [id number] 1{tbl} Take 1 tablet by mouth in the morning. [facility] acetaminoph en 325 mg tablet 09-28 00:00: 00 10-09 00:00 :00 No [id number] 650mg Take 2 tablets by mouth every 6 (six) hours as needed for Pain (scale 1-3) or Pain (scale 4-6). [facility] vitamin w/FA tablet 09-28 00:00: 00 10-09 00:00 :00 No [id number] 1{tbl} Take 1 tablet by mouth in the morning. [facility] docusate 100 mg capsule 09-28 00:00: 00 10-09 00:00 :00 No [id number] 200mg Take 2 capsules by mouth once daily as needed for Constipati on. [facility] ibuprofen 600 mg tablet 09-28 00:00: 00 08-14 00:00 :00 No [id number] 600mg Take 1 tablet by mouth every 6 (six) hours as needed (Pain). Take with food or milk. [facility] ferrous sulfate 325 mg (65 mg iron) tablet 09-28 00:00: 00 07-11 00:00 :00 No [id number] 325mg Take 1 tablet by mouth in the morning and 1 tablet in the evening. [facility] Nitrofurant oin&Nit. Macrocryst 100 mg capsule 06-06 00:00: 00 09-28 00:00 :00 No [id number] 100mg Take 1 capsule by mouth 2 (two) times daily. [facility] famotidine (PEPCID) 20 mg tablet 06-06 00:00: 00 09-28 00:00 :00 No [id number] 20mg Take 1 tablet by mouth 2 (two) times daily. [facility] metoclopram jacob HCl 10 mg tablet 06-06 00:00: 00 09-28 00:00 :00 No [id number] 10mg Take 1 tablet by mouth every 6 (six) hours as needed for Nausea and Vomiting (N/V) or Gastroesop hageal reflux. [facility] aspirin 81 mg EC tablet 2 00:00: 00 09-28 00:00 :00 No [id number] 81mg Take 1 tablet by mouth daily. [facility] ferrous sulfate (IRON, FERROUS SULFATE,) 325 mg (65 mg iron) tablet 2 00:00: 00 09-28 00:00 :00 No [id number] 325mg Take 1 tablet by mouth 2 (two) times daily. [facility] vit w/iron fumarate and FA ( VITAMIN WITH MINERALS) tablet 2019-02 00:00: 00 07-06 00:00 :00 No [id number] 1{tbl} Take 1 tablet by mouth daily. [facility] Immunizations Ordered Immunization Name Filled Immunization Name Date Status Comments Source TDAP 2022-07-30 00:00:00 Completed [facility] TDAP 2022-07-30 00:00:00 Completed [facility] TDAP 2022-07-30 00:00:00 Completed [facility] TDAP 2022-07-30 00:00:00 Completed [facility] TDAP 2022-07-30 00:00:00 Completed [facility] TDAP 2022-07-30 00:00:00 Completed [facility] TDAP 2022-07-30 00:00:00 Completed [facility] TDAP 2022-07-30 00:00:00 Completed [facility] TDAP 2022-07-30 00:00:00 Completed [facility] TDAP 2022-07-30 00:00:00 Completed [facility] TDAP 2022-07-30 00:00:00 Completed [facility] TDAP 2022-07-30 00:00:00 Completed [facility] TDAP 2022-07-30 00:00:00 Completed [facility] TDAP 2022-07-30 00:00:00 Completed [facility] TDAP 2022-07-30 00:00:00 Completed [facility] TDAP 2022-07-30 00:00:00 Completed [facility] TDAP 2022-07-30 00:00:00 Completed [facility] TDAP 2022-07-30 00:00:00 Completed [facility] TDAP 2022-07-30 00:00:00 Completed [facility] TDAP 2022-07-30 00:00:00 Completed [facility] TDAP 2022-07-30 00:00:00 Completed [facility] TDAP 2022-07-30 00:00:00 Completed [facility] TDAP 2022-07-30 00:00:00 Completed [facility] TDAP 2022-07-30 00:00:00 Completed [facility] TDAP 2022-07-30 00:00:00 Completed [facility] TDAP 2022-07-30 00:00:00 Completed [facility] TDAP 2022-07-30 00:00:00 Completed [facility] TDAP 2022-07-30 00:00:00 Completed [facility] TDAP 2022-07-30 00:00:00 Completed [facility] TDAP 2022-07-30 00:00:00 Completed [facility] TDAP 2021-08-03 00:00:00 Completed [facility] TDAP 2021-08-03 00:00:00 Completed [facility] TDAP 2021-08-03 00:00:00 Completed [facility] TDAP 2021-08-03 00:00:00 Completed [facility] TDAP 2021-08-03 00:00:00 Completed [facility] TDAP 2021-08-03 00:00:00 Completed [facility] TDAP 2021-08-03 00:00:00 Completed [facility] TDAP 2021-08-03 00:00:00 Completed [facility] TDAP 2021-08-03 00:00:00 Completed [facility] TDAP 2021-08-03 00:00:00 Completed [facility] TDAP 2021-08-03 00:00:00 Completed [facility] TDAP 2021-08-03 00:00:00 Completed [facility] TDAP 2021-08-03 00:00:00 Completed [facility] TDAP 2021-08-03 00:00:00 Completed [facility] TDAP 2021-08-03 00:00:00 Completed [facility] TDAP 2021-08-03 00:00:00 Completed [facility] TDAP 2021-08-03 00:00:00 Completed [facility] TDAP 2021-08-03 00:00:00 Completed [facility] TDAP 2021-08-03 00:00:00 Completed [facility] TDAP 2021-08-03 00:00:00 Completed [facility] TDAP 2021-08-03 00:00:00 Completed [facility] TDAP 2021-08-03 00:00:00 Completed [facility] TDAP 2021-08-03 00:00:00 Completed [facility] TDAP 2021-08-03 00:00:00 Completed [facility] TDAP 2021-08-03 00:00:00 Completed [facility] TDAP 2021-08-03 00:00:00 Completed [facility] TDAP 2021-08-03 00:00:00 Completed [facility] TDAP 2021-08-03 00:00:00 Completed [facility] TDAP 2021-08-03 00:00:00 Completed [facility] TDAP 2021-08-03 00:00:00 Completed [facility] TDAP 2021-08-03 00:00:00 Completed [facility] TDAP 2021-08-03 00:00:00 Completed [facility] TDAP 2021-08-03 00:00:00 Completed [facility] TDAP 2021-08-03 00:00:00 Completed [facility] TDAP 2021-08-03 00:00:00 Completed [facility] TDAP 2021-08-03 00:00:00 Completed [facility] TDAP 2021-08-03 00:00:00 Completed [facility] TDAP 2021-08-03 00:00:00 Completed [facility] TDAP 2021-08-03 00:00:00 Completed [facility] TDAP 2021-08-03 00:00:00 Completed [facility] TDAP 2021-08-03 00:00:00 Completed [facility] TDAP 2021-08-03 00:00:00 Completed [facility] TDAP 2021-08-03 00:00:00 Completed [facility] TDAP 2021-08-03 00:00:00 Completed [facility] TDAP 2021-08-03 00:00:00 Completed [facility] TDAP 2021-08-03 00:00:00 Completed [facility] TDAP 2021-08-03 00:00:00 Completed [facility] TDAP 2021-08-03 00:00:00 Completed [facility] TDAP 2021-08-03 00:00:00 Completed [facility] TDAP 2021-08-03 00:00:00 Completed [facility] TDAP 2021-08-03 00:00:00 Completed [facility] TDAP 2021-08-03 00:00:00 Completed [facility] TDAP 2021-08-03 00:00:00 Completed [facility] TDAP 2021-08-03 00:00:00 Completed [facility] TDAP 2021-08-03 00:00:00 Completed [facility] TDAP 2020-06-14 00:00:00 Completed [facility] TDAP 2020-06-14 00:00:00 Completed [facility] TDAP 2020-06-14 00:00:00 Completed [facility] TDAP 2020-06-14 00:00:00 Completed [facility] TDAP 2020-06-14 00:00:00 Completed [facility] TDAP 2020-06-14 00:00:00 Completed [facility] TDAP 2020-06-14 00:00:00 Completed [facility] TDAP 2020-06-14 00:00:00 Completed [facility] TDAP 2020-06-14 00:00:00 Completed [facility] TDAP 2020-06-14 00:00:00 Completed [facility] TDAP 2020-06-14 00:00:00 Completed [facility] TDAP 2020-06-14 00:00:00 Completed [facility] TDAP 2020-06-14 00:00:00 Completed [facility] TDAP 2020-06-14 00:00:00 Completed [facility] TDAP 2020-06-14 00:00:00 Completed [facility] TDAP 2020-06-14 00:00:00 Completed [facility] TDAP 2020-06-14 00:00:00 Completed [facility] TDAP 2020-06-14 00:00:00 Completed [facility] TDAP 2020-06-14 00:00:00 Completed [facility] TDAP 2020-06-14 00:00:00 Completed [facility] TDAP 2020-06-14 00:00:00 Completed [facility] TDAP 2020-06-14 00:00:00 Completed [facility] TDAP 2020-06-14 00:00:00 Completed [facility] TDAP 2020-06-14 00:00:00 Completed [facility] TDAP 2020-06-14 00:00:00 Completed [facility] TDAP 2020-06-14 00:00:00 Completed [facility] TDAP 2020-06-14 00:00:00 Completed [facility] TDAP 2020-06-14 00:00:00 Completed [facility] TDAP 2020-06-14 00:00:00 Completed [facility] TDAP 2020-06-14 00:00:00 Completed [facility] TDAP 2020-06-14 00:00:00 Completed [facility] TDAP 2020-06-14 00:00:00 Completed [facility] TDAP 2020-06-14 00:00:00 Completed [facility] TDAP 2020-06-14 00:00:00 Completed [facility] TDAP 2020-06-14 00:00:00 Completed [facility] TDAP 2020-06-14 00:00:00 Completed [facility] TDAP 2020-06-14 00:00:00 Completed [facility] TDAP 2020-06-14 00:00:00 Completed [facility] TDAP 2020-06-14 00:00:00 Completed [facility] TDAP 2020-06-14 00:00:00 Completed [facility] TDAP 2020-06-14 00:00:00 Completed [facility] TDAP 2020-06-14 00:00:00 Completed [facility] TDAP 2020-06-14 00:00:00 Completed [facility] TDAP 2020-06-14 00:00:00 Completed [facility] TDAP 2020-06-14 00:00:00 Completed [facility] TDAP 2020-06-14 00:00:00 Completed [facility] TDAP 2020-06-14 00:00:00 Completed [facility] TDAP 2020-06-14 00:00:00 Completed [facility] TDAP 2020-06-14 00:00:00 Completed [facility] TDAP 2020-06-14 00:00:00 Completed [facility] TDAP 2020-06-14 00:00:00 Completed [facility] TDAP 2020-06-14 00:00:00 Completed [facility] TDAP 2020-06-14 00:00:00 Completed [facility] TDAP 2020-06-14 00:00:00 Completed [facility] TDAP 2020-06-14 00:00:00 Completed Influenza Virus Vaccine Quad .5 mL IM 6+ MO 2020-01-14 00:00:00 Completed [facility] Influenza Virus Vaccine Quad .5 mL IM 6+ MO 2020-01-14 00:00:00 Completed [facility] Influenza Virus Vaccine Quad .5 mL IM 6+ MO 2020-01-14 00:00:00 Completed [facility] Influenza Virus Vaccine Quad .5 mL IM 6+ MO 2020-01-14 00:00:00 Completed [facility] Influenza Virus Vaccine Quad .5 mL IM 6+ MO 2020-01-14 00:00:00 Completed [facility] Influenza Virus Vaccine Quad .5 mL IM 6+ MO 2020-01-14 00:00:00 Completed [facility] Influenza Virus Vaccine Quad .5 mL IM 6+ MO 2020-01-14 00:00:00 Completed [facility] Influenza Virus Vaccine Quad .5 mL IM 6+ MO 2020-01-14 00:00:00 Completed [facility] Influenza Virus Vaccine Quad .5 mL IM 6+ MO 2020-01-14 00:00:00 Completed [facility] Influenza Virus Vaccine Quad .5 mL IM 6+ MO 2020-01-14 00:00:00 Completed [facility] Influenza Virus Vaccine Quad .5 mL IM 6+ MO 2020-01-14 00:00:00 Completed [facility] Influenza Virus Vaccine Quad .5 mL IM 6+ MO 2020-01-14 00:00:00 Completed [facility] Influenza Virus Vaccine Quad .5 mL IM 6+ MO 2020-01-14 00:00:00 Completed [facility] Influenza Virus Vaccine Quad .5 mL IM 6+ MO 2020-01-14 00:00:00 Completed [facility] Influenza Virus Vaccine Quad .5 mL IM 6+ MO 2020-01-14 00:00:00 Completed [facility] Influenza Virus Vaccine Quad .5 mL IM 6+ MO 2020-01-14 00:00:00 Completed [facility] Influenza Virus Vaccine Quad .5 mL IM 6+ MO 2020-01-14 00:00:00 Completed [facility] Influenza Virus Vaccine Quad .5 mL IM 6+ MO 2020-01-14 00:00:00 Completed [facility] Influenza Virus Vaccine Quad .5 mL IM 6+ MO 2020-01-14 00:00:00 Completed [facility] Influenza Virus Vaccine Quad .5 mL IM 6+ MO 2020-01-14 00:00:00 Completed [facility] Influenza Virus Vaccine Quad .5 mL IM 6+ MO 2020-01-14 00:00:00 Completed [facility] Influenza Virus Vaccine Quad .5 mL IM 6+ MO 2020-01-14 00:00:00 Completed [facility] Influenza Virus Vaccine Quad .5 mL IM 6+ MO 2020-01-14 00:00:00 Completed [facility] Influenza Virus Vaccine Quad .5 mL IM 6+ MO 2020-01-14 00:00:00 Completed [facility] Influenza Virus Vaccine Quad .5 mL IM 6+ MO 2020-01-14 00:00:00 Completed [facility] Influenza Virus Vaccine Quad .5 mL IM 6+ MO 2020-01-14 00:00:00 Completed [facility] Influenza Virus Vaccine Quad .5 mL IM 6+ MO 2020-01-14 00:00:00 Completed [facility] Influenza Virus Vaccine Quad .5 mL IM 6+ MO 2020-01-14 00:00:00 Completed [facility] Influenza Virus Vaccine Quad .5 mL IM 6+ MO 2020-01-14 00:00:00 Completed [facility] Influenza Virus Vaccine Quad .5 mL IM 6+ MO 2020-01-14 00:00:00 Completed [facility] Influenza Virus Vaccine Quad .5 mL IM 6+ MO 2020-01-14 00:00:00 Completed [facility] Influenza Virus Vaccine Quad .5 mL IM 6+ MO 2020-01-14 00:00:00 Completed [facility] Influenza Virus Vaccine Quad .5 mL IM 6+ MO 2020-01-14 00:00:00 Completed [facility] Influenza Virus Vaccine Quad .5 mL IM 6+ MO 2020-01-14 00:00:00 Completed [facility] Influenza Virus Vaccine Quad .5 mL IM 6+ MO 2020-01-14 00:00:00 Completed [facility] Influenza Virus Vaccine Quad .5 mL IM 6+ MO 2020-01-14 00:00:00 Completed [facility] Influenza Virus Vaccine Quad .5 mL IM 6+ MO 2020-01-14 00:00:00 Completed [facility] Influenza Virus Vaccine Quad .5 mL IM 6+ MO 2020-01-14 00:00:00 Completed [facility] Influenza Virus Vaccine Quad .5 mL IM 6+ MO 2020-01-14 00:00:00 Completed [facility] Influenza Virus Vaccine Quad .5 mL IM 6+ MO 2020-01-14 00:00:00 Completed [facility] Influenza Virus Vaccine Quad .5 mL IM 6+ MO 2020-01-14 00:00:00 Completed [facility] Influenza Virus Vaccine Quad .5 mL IM 6+ MO 2020-01-14 00:00:00 Completed [facility] Influenza Virus Vaccine Quad .5 mL IM 6+ MO 2020-01-14 00:00:00 Completed [facility] Influenza Virus Vaccine Quad .5 mL IM 6+ MO 2020-01-14 00:00:00 Completed [facility] Influenza Virus Vaccine Quad .5 mL IM 6+ MO 2020-01-14 00:00:00 Completed [facility] Influenza Virus Vaccine Quad .5 mL IM 6+ MO 2020-01-14 00:00:00 Completed [facility] Influenza Virus Vaccine Quad .5 mL IM 6+ MO 2020-01-14 00:00:00 Completed [facility] Influenza Virus Vaccine Quad .5 mL IM 6+ MO 2020-01-14 00:00:00 Completed [facility] Influenza Virus Vaccine Quad .5 mL IM 6+ MO 2020-01-14 00:00:00 Completed [facility] Influenza Virus Vaccine Quad .5 mL IM 6+ MO 2020-01-14 00:00:00 Completed [facility] Influenza Virus Vaccine Quad .5 mL IM 6+ MO 2020-01-14 00:00:00 Completed [facility] Influenza Virus Vaccine Quad .5 mL IM 6+ MO 2020-01-14 00:00:00 Completed [facility] Influenza Virus Vaccine Quad .5 mL IM 6+ MO 2020-01-14 00:00:00 Completed [facility] Influenza Virus Vaccine Quad .5 mL IM 6+ MO 2020-01-14 00:00:00 Completed [facility] Influenza Virus Vaccine Quad .5 mL IM 6+ MO (FLUZONE/FLULAVAL/F LUARIX) 2020-01-14 00:00:00 Completed [facility] HPV9 2017-05-30 00:00:00 Completed [facility] HPV9 2017-05-30 00:00:00 Completed [facility] HPV9 2017-05-30 00:00:00 Completed [facility] HPV9 2017-05-30 00:00:00 Completed [facility] HPV9 2017-05-30 00:00:00 Completed [facility] HPV9 2017-05-30 00:00:00 Completed [facility] HPV9 2017-05-30 00:00:00 Completed [facility] HPV9 2017-05-30 00:00:00 Completed [facility] HPV9 2017-05-30 00:00:00 Completed [facility] HPV9 2017-05-30 00:00:00 Completed [facility] HPV9 2017-05-30 00:00:00 Completed [facility] HPV9 2017-05-30 00:00:00 Completed [facility] HPV9 2017-05-30 00:00:00 Completed [facility] HPV9 2017-05-30 00:00:00 Completed [facility] HPV9 2017-05-30 00:00:00 Completed [facility] HPV9 2017-05-30 00:00:00 Completed [facility] HPV9 2017-05-30 00:00:00 Completed [facility] HPV9 2017-05-30 00:00:00 Completed [facility] HPV9 2017-05-30 00:00:00 Completed [facility] HPV9 2017-05-30 00:00:00 Completed [facility] HPV9 2017-05-30 00:00:00 Completed [facility] HPV9 2017-05-30 00:00:00 Completed [facility] HPV9 2017-05-30 00:00:00 Completed [facility] HPV9 2017-05-30 00:00:00 Completed [facility] HPV9 2017-05-30 00:00:00 Completed [facility] HPV9 2017-05-30 00:00:00 Completed [facility] HPV9 2017-05-30 00:00:00 Completed [facility] HPV9 2017-05-30 00:00:00 Completed [facility] HPV9 2017-05-30 00:00:00 Completed [facility] HPV9 2017-05-30 00:00:00 Completed [facility] HPV9 2017-05-30 00:00:00 Completed [facility] HPV9 2017-05-30 00:00:00 Completed [facility] HPV9 2017-05-30 00:00:00 Completed [facility] HPV9 2017-05-30 00:00:00 Completed [facility] HPV9 2017-05-30 00:00:00 Completed [facility] HPV9 2017-05-30 00:00:00 Completed [facility] HPV9 2017-05-30 00:00:00 Completed [facility] HPV9 2017-05-30 00:00:00 Completed [facility] HPV9 2017-05-30 00:00:00 Completed [facility] HPV9 2017-05-30 00:00:00 Completed [facility] HPV9 2017-05-30 00:00:00 Completed [facility] HPV9 2017-05-30 00:00:00 Completed [facility] HPV9 2017-05-30 00:00:00 Completed [facility] HPV9 2017-05-30 00:00:00 Completed [facility] HPV9 2017-05-30 00:00:00 Completed [facility] HPV9 2017-05-30 00:00:00 Completed [facility] HPV9 2017-05-30 00:00:00 Completed [facility] HPV9 2017-05-30 00:00:00 Completed [facility] HPV9 2017-05-30 00:00:00 Completed [facility] HPV9 2017-05-30 00:00:00 Completed [facility] HPV9 2017-05-30 00:00:00 Completed [facility] HPV9 2017-05-30 00:00:00 Completed [facility] HPV9 2017-05-30 00:00:00 Completed [facility] HPV9 2017-05-30 00:00:00 Completed [facility] HPV9 2017-05-30 00:00:00 Completed [facility] HPV9 2016-03-19 00:00:00 Completed [facility] HPV9 2016-03-19 00:00:00 Completed [facility] HPV9 2016-03-19 00:00:00 Completed [facility] HPV9 2016-03-19 00:00:00 Completed [facility] HPV9 2016-03-19 00:00:00 Completed [facility] HPV9 2016-03-19 00:00:00 Completed [facility] HPV9 2016-03-19 00:00:00 Completed [facility] HPV9 2016-03-19 00:00:00 Completed [facility] HPV9 2016-03-19 00:00:00 Completed [facility] HPV9 2016-03-19 00:00:00 Completed [facility] HPV9 2016-03-19 00:00:00 Completed [facility] HPV9 2016-03-19 00:00:00 Completed [facility] HPV9 2016-03-19 00:00:00 Completed [facility] HPV9 2016-03-19 00:00:00 Completed [facility] HPV9 2016-03-19 00:00:00 Completed [facility] HPV9 2016-03-19 00:00:00 Completed [facility] HPV9 2016-03-19 00:00:00 Completed [facility] HPV9 2016-03-19 00:00:00 Completed [facility] HPV9 2016-03-19 00:00:00 Completed [facility] HPV9 2016-03-19 00:00:00 Completed [facility] HPV9 2016-03-19 00:00:00 Completed [facility] HPV9 2016-03-19 00:00:00 Completed [facility] HPV9 2016-03-19 00:00:00 Completed [facility] HPV9 2016-03-19 00:00:00 Completed [facility] HPV9 2016-03-19 00:00:00 Completed [facility] HPV9 2016-03-19 00:00:00 Completed [facility] HPV9 2016-03-19 00:00:00 Completed [facility] HPV9 2016-03-19 00:00:00 Completed [facility] HPV9 2016-03-19 00:00:00 Completed [facility] HPV9 2016-03-19 00:00:00 Completed [facility] HPV9 2016-03-19 00:00:00 Completed [facility] HPV9 2016-03-19 00:00:00 Completed [facility] HPV9 2016-03-19 00:00:00 Completed [facility] HPV9 2016-03-19 00:00:00 Completed [facility] HPV9 2016-03-19 00:00:00 Completed [facility] HPV9 2016-03-19 00:00:00 Completed [facility] HPV9 2016-03-19 00:00:00 Completed [facility] HPV9 2016-03-19 00:00:00 Completed [facility] HPV9 2016-03-19 00:00:00 Completed [facility] HPV9 2016-03-19 00:00:00 Completed [facility] HPV9 2016-03-19 00:00:00 Completed [facility] HPV9 2016-03-19 00:00:00 Completed [facility] HPV9 2016-03-19 00:00:00 Completed [facility] HPV9 2016-03-19 00:00:00 Completed [facility] HPV9 2016-03-19 00:00:00 Completed [facility] HPV9 2016-03-19 00:00:00 Completed [facility] HPV9 2016-03-19 00:00:00 Completed [facility] HPV9 2016-03-19 00:00:00 Completed [facility] HPV9 2016-03-19 00:00:00 Completed [facility] HPV9 2016-03-19 00:00:00 Completed [facility] HPV9 2016-03-19 00:00:00 Completed [facility] HPV9 2016-03-19 00:00:00 Completed [facility] HPV9 2016-03-19 00:00:00 Completed [facility] HPV9 2016-03-19 00:00:00 Completed [facility] HPV9 2016-03-19 00:00:00 Completed HPV9 2015-11-23 00:00:00 Completed [facility] HPV9 2015-11-23 00:00:00 Completed [facility] HPV9 2015-11-23 00:00:00 Completed [facility] HPV9 2015-11-23 00:00:00 Completed [facility] HPV9 2015-11-23 00:00:00 Completed [facility] HPV9 2015-11-23 00:00:00 Completed [facility] HPV9 2015-11-23 00:00:00 Completed [facility] HPV9 2015-11-23 00:00:00 Completed [facility] HPV9 2015-11-23 00:00:00 Completed [facility] HPV9 2015-11-23 00:00:00 Completed [facility] HPV9 2015-11-23 00:00:00 Completed [facility] HPV9 2015-11-23 00:00:00 Completed [facility] HPV9 2015-11-23 00:00:00 Completed [facility] HPV9 2015-11-23 00:00:00 Completed [facility] HPV9 2015-11-23 00:00:00 Completed [facility] HPV9 2015-11-23 00:00:00 Completed [facility] HPV9 2015-11-23 00:00:00 Completed [facility] HPV9 2015-11-23 00:00:00 Completed [facility] HPV9 2015-11-23 00:00:00 Completed [facility] HPV9 2015-11-23 00:00:00 Completed [facility] HPV9 2015-11-23 00:00:00 Completed [facility] HPV9 2015-11-23 00:00:00 Completed [facility] HPV9 2015-11-23 00:00:00 Completed [facility] HPV9 2015-11-23 00:00:00 Completed [facility] HPV9 2015-11-23 00:00:00 Completed [facility] HPV9 2015-11-23 00:00:00 Completed [facility] HPV9 2015-11-23 00:00:00 Completed [facility] HPV9 2015-11-23 00:00:00 Completed [facility] HPV9 2015-11-23 00:00:00 Completed [facility] HPV9 2015-11-23 00:00:00 Completed [facility] HPV9 2015-11-23 00:00:00 Completed [facility] HPV9 2015-11-23 00:00:00 Completed [facility] HPV9 2015-11-23 00:00:00 Completed [facility] HPV9 2015-11-23 00:00:00 Completed [facility] HPV9 2015-11-23 00:00:00 Completed [facility] HPV9 2015-11-23 00:00:00 Completed [facility] HPV9 2015-11-23 00:00:00 Completed [facility] HPV9 2015-11-23 00:00:00 Completed [facility] HPV9 2015-11-23 00:00:00 Completed [facility] HPV9 2015-11-23 00:00:00 Completed [facility] HPV9 2015-11-23 00:00:00 Completed [facility] HPV9 2015-11-23 00:00:00 Completed [facility] HPV9 2015-11-23 00:00:00 Completed [facility] HPV9 2015-11-23 00:00:00 Completed [facility] HPV9 2015-11-23 00:00:00 Completed [facility] HPV9 2015-11-23 00:00:00 Completed [facility] HPV9 2015-11-23 00:00:00 Completed [facility] HPV9 2015-11-23 00:00:00 Completed [facility] HPV9 2015-11-23 00:00:00 Completed [facility] HPV9 2015-11-23 00:00:00 Completed [facility] HPV9 2015-11-23 00:00:00 Completed [facility] HPV9 2015-11-23 00:00:00 Completed [facility] HPV9 2015-11-23 00:00:00 Completed [facility] HPV9 2015-11-23 00:00:00 Completed [facility] HPV9 2015-11-23 00:00:00 Completed [facility] MMR 2011-12-11 00:00:00 Completed [facility] MMR 2011-12-11 00:00:00 Completed [facility] MMR 2011-12-11 00:00:00 Completed [facility] MMR 2011-12-11 00:00:00 Completed [facility] MMR 2011-12-11 00:00:00 Completed [facility] TDAP 2011-02-25 00:00:00 Completed [facility] TDAP 2011-02-25 00:00:00 Completed [facility] TDAP 2011-02-25 00:00:00 Completed [facility] TDAP 2011-02-25 00:00:00 Completed [facility] TDAP 2011-02-25 00:00:00 Completed [facility] TDAP 2011-02-25 00:00:00 Completed [facility] TDAP 2011-02-25 00:00:00 Completed [facility] TDAP 2011-02-25 00:00:00 Completed [facility] TDAP 2011-02-25 00:00:00 Completed [facility] TDAP 2011-02-25 00:00:00 Completed [facility] TDAP 2011-02-25 00:00:00 Completed [facility] TDAP 2011-02-25 00:00:00 Completed [facility] TDAP 2011-02-25 00:00:00 Completed [facility] TDAP 2011-02-25 00:00:00 Completed [facility] TDAP 2011-02-25 00:00:00 Completed [facility] TDAP 2011-02-25 00:00:00 Completed [facility] TDAP 2011-02-25 00:00:00 Completed [facility] TDAP 2011-02-25 00:00:00 Completed [facility] TDAP 2011-02-25 00:00:00 Completed [facility] TDAP 2011-02-25 00:00:00 Completed [facility] TDAP 2011-02-25 00:00:00 Completed [facility] TDAP 2011-02-25 00:00:00 Completed [facility] TDAP 2011-02-25 00:00:00 Completed [facility] TDAP 2011-02-25 00:00:00 Completed [facility] TDAP 2011-02-25 00:00:00 Completed [facility] TDAP 2011-02-25 00:00:00 Completed [facility] TDAP 2011-02-25 00:00:00 Completed [facility] TDAP 2011-02-25 00:00:00 Completed [facility] TDAP 2011-02-25 00:00:00 Completed [facility] TDAP 2011-02-25 00:00:00 Completed [facility] TDAP 2011-02-25 00:00:00 Completed [facility] TDAP 2011-02-25 00:00:00 Completed [facility] TDAP 2011-02-25 00:00:00 Completed [facility] TDAP 2011-02-25 00:00:00 Completed [facility] TDAP 2011-02-25 00:00:00 Completed [facility] TDAP 2011-02-25 00:00:00 Completed [facility] TDAP 2011-02-25 00:00:00 Completed [facility] TDAP 2011-02-25 00:00:00 Completed [facility] TDAP 2011-02-25 00:00:00 Completed [facility] TDAP 2011-02-25 00:00:00 Completed [facility] TDAP 2011-02-25 00:00:00 Completed [facility] TDAP 2011-02-25 00:00:00 Completed [facility] TDAP 2011-02-25 00:00:00 Completed [facility] TDAP 2011-02-25 00:00:00 Completed [facility] TDAP 2011-02-25 00:00:00 Completed [facility] TDAP 2011-02-25 00:00:00 Completed [facility] TDAP 2011-02-25 00:00:00 Completed [facility] TDAP 2011-02-25 00:00:00 Completed [facility] TDAP 2011-02-25 00:00:00 Completed [facility] TDAP 2011-02-25 00:00:00 Completed [facility] TDAP 2011-02-25 00:00:00 Completed [facility] TDAP 2011-02-25 00:00:00 Completed [facility] TDAP 2011-02-25 00:00:00 Completed [facility] TDAP 2011-02-25 00:00:00 Completed [facility] TDAP 2011-02-25 00:00:00 Completed [facility] HPV9 Unknown Completed [facility] Influenza Virus Vaccine Quad .5 mL IM 6+ MO (FLUZONE/FLULAVAL/F LUARIX) Unknown Completed [facility] TDAP Unknown Completed [facility] HPV9 Unknown Completed [facility] Influenza Virus Vaccine Quad .5 mL IM 6+ MO (FLUZONE/FLULAVAL/F LUARIX) Unknown Completed [facility] TDAP Unknown Completed [facility] HPV9 Unknown Completed [facility] Influenza Virus Vaccine Quad .5 mL IM 6+ MO (FLUZONE/FLULAVAL/F LUARIX) Unknown Completed [facility] TDAP Unknown Completed [facility] HPV9 Unknown Completed [facility] Influenza Virus Vaccine Quad .5 mL IM 6+ MO (FLUZONE/FLULAVAL/F LUARIX) Unknown Completed [facility] TDAP Unknown Completed [facility] TDAP Unknown Completed [facility] HPV9 Unknown Completed [facility] Influenza Virus Vaccine Quad .5 mL IM 6+ MO (FLUZONE/FLULAVAL/F LUARIX) Unknown Completed [facility] TDAP Unknown Completed [facility] HPV9 Unknown Completed [facility] Influenza Virus Vaccine Quad .5 mL IM 6+ MO (FLUZONE/FLULAVAL/F LUARIX) Unknown Completed [facility] TDAP Unknown Completed [facility] HPV9 Unknown Completed [facility] Influenza Virus Vaccine Quad .5 mL IM 6+ MO (FLUZONE/FLULAVAL/F LUARIX) Unknown Completed [facility] TDAP Unknown Completed [facility] HPV9 Unknown Completed [facility] Influenza Virus Vaccine Quad .5 mL IM 6+ MO (FLUZONE/FLULAVAL/F LUARIX) Unknown Completed [facility] TDAP Unknown Completed [facility] HPV9 Unknown Completed [facility] Influenza Virus Vaccine Quad .5 mL IM 6+ MO (FLUZONE/FLULAVAL/F LUARIX) Unknown Completed [facility] TDAP Unknown Completed [facility] HPV9 Unknown Completed [facility] Influenza Virus Vaccine Quad .5 mL IM 6+ MO (FLUZONE/FLULAVAL/F LUARIX) Unknown Completed [facility] TDAP Unknown Completed [facility] HPV9 Unknown Completed [facility] Influenza Virus Vaccine Quad .5 mL IM 6+ MO (FLUZONE/FLULAVAL/F LUARIX) Unknown Completed [facility] HPV9 Unknown Completed [facility] Influenza Virus Vaccine Quad .5 mL IM 6+ MO (FLUZONE/FLULAVAL/F LUARIX) Unknown Completed [facility] TDAP Unknown Completed [facility] HPV9 Unknown Completed [facility] Influenza Virus Vaccine Quad .5 mL IM 6+ MO (FLUZONE/FLULAVAL/F LUARIX) Unknown Completed [facility] TDAP Unknown Completed [facility] TDAP Unknown Completed [facility] HPV9 Unknown Completed [facility] Influenza Virus Vaccine Quad .5 mL IM 6+ MO (FLUZONE/FLULAVAL/F LUARIX) Unknown Completed [facility] TDAP Unknown Completed [facility] HPV9 Unknown Completed [facility] Influenza Virus Vaccine Quad .5 mL IM 6+ MO (FLUZONE/FLULAVAL/F LUARIX) Unknown Completed [facility] Influenza Virus Vaccine Quad .5 mL IM 6+ MO (FLUZONE/FLULAVAL/F LUARIX) Unknown Completed [facility] TDAP Unknown Completed [facility] HPV9 Unknown Completed [facility] TDAP Unknown Completed [facility] HPV9 Unknown Completed [facility] Influenza Virus Vaccine Quad .5 mL IM 6+ MO (FLUZONE/FLULAVAL/F LUARIX) Unknown Completed [facility] TDAP Unknown Completed [facility] HPV9 Unknown Completed [facility] Influenza Virus Vaccine Quad .5 mL IM 6+ MO (FLUZONE/FLULAVAL/F LUARIX) Unknown Completed [facility] Influenza Virus Vaccine Quad .5 mL IM 6+ MO (FLUZONE/FLULAVAL/F LUARIX) Unknown Completed [facility] Influenza Virus Vaccine Quad .5 mL IM 6+ MO (FLUZONE/FLULAVAL/F LUARIX) Unknown Completed [facility] TDAP Unknown Completed [facility] HPV9 Unknown Completed [facility] MMR Unknown Completed [facility] TDAP Unknown Completed [facility] HPV9 Unknown Completed [facility] Influenza Virus Vaccine Quad .5 mL IM 6+ MO (FLUZONE/FLULAVAL/F LUARIX) Unknown Completed [facility] TDAP Unknown Completed [facility] HPV9 Unknown Completed [facility] Influenza Virus Vaccine Quad .5 mL IM 6+ MO (FLUZONE/FLULAVAL/F LUARIX) Unknown Completed [facility] MMR Unknown Completed [facility] TDAP Unknown Completed [facility] HPV9 Unknown Completed [facility] TDAP Unknown Completed [facility] HPV9 Unknown Completed [facility] Influenza Virus Vaccine Quad .5 mL IM 6+ MO (FLUZONE/FLULAVAL/F LUARIX) Unknown Completed [facility] TDAP Unknown Completed [facility] HPV9 Unknown Completed [facility] Influenza Virus Vaccine Quad .5 mL IM 6+ MO (FLUZONE/FLULAVAL/F LUARIX) Unknown Completed [facility] MMR Unknown Completed [facility] TDAP Unknown Completed [facility] HPV9 Unknown Completed [facility] Influenza Virus Vaccine Quad .5 mL IM 6+ MO (FLUZONE/FLULAVAL/F LUARIX) Unknown Completed [facility] Vital Signs Vital Name Observation Time Observation Value Comments S ource Systolic blood pressure 2023-07-15 15:17:00 121 mm[Hg] [facility] Diastolic blood pressure 2023-07-15 15:17:00 80 mm[Hg] [facility] Heart rate 2023-07-15 15:17:00 76 /min [facility] Body height 2023-07-15 15:17:00 167.6 cm [facility] Body weight 2023-07-15 15:17:00 111.585 kg [facility] BMI 2023-07-15 15:17:00 39.71 kg/m2 [facility] Oxygen saturation in Arterial blood by Pulse oximetry 2023-07-15 15:17:00 98 /min [facility] Systolic blood pressure 2023-05-30 15:56:00 124 mm[Hg] [facility] Diastolic blood pressure 2023-05-30 15:56:00 77 mm[Hg] [facility] Heart rate 2023-05-30 15:56:00 83 /min [facility] Body temperature 2023-05-30 15:56:00 36.78 Grace [facility] Respiratory rate 2023-05-30 15:56:00 20 /min [facility] Body height 2023-05-30 15:56:00 162.6 cm [facility] Body weight 2023-05-30 15:56:00 113.399 kg [facility] BMI 2023-05-30 15:56:00 42.91 kg/m2 [facility] Oxygen saturation in Arterial blood by Pulse oximetry 2023-05-30 15:56:00 99 /min [facility] Systolic blood pressure 2023-05-10 20:35:00 131 mm[Hg] [facility] Diastolic blood pressure 2023-05-10 20:35:00 78 mm[Hg] [facility] Heart rate 2023-05-10 20:35:00 83 /min [facility] Body temperature 2023-05-10 20:35:00 37.61 Grace [facility] Respiratory rate 2023-05-10 20:35:00 16 /min [facility] Body height 2023-05-10 20:35:00 165.1 cm [facility] Body weight 2023-05-10 20:35:00 113.399 kg [facility] BMI 2023-05-10 20:35:00 41.60 kg/m2 [facility] Oxygen saturation in Arterial blood by Pulse oximetry 2023-05-10 20:35:00 100 /min [facility] Systolic blood pressure 2023-02-20 22:20:00 126 mm[Hg] [facility] Diastolic blood pressure 2023-02-20 22:20:00 69 mm[Hg] [facility] Heart rate 2023-02-20 22:20:00 117 /min [facility] Body temperature 2023-02-20 22:20:00 38 Grace [facility] Respiratory rate 2023-02-20 22:20:00 18 /min [facility] Body height 2023-02-20 22:20:00 165.1 cm [facility] Body weight 2023-02-20 22:20:00 114.715 kg [facility] BMI 2023-02-20 22:20:00 42.08 kg/m2 [facility] Oxygen saturation in Arterial blood by Pulse oximetry 2023-02-20 22:20:00 100 /min [facility] Systolic blood pressure 2022-10-23 15:43:00 112 mm[Hg] [facility] Diastolic blood pressure 2022-10-23 15:43:00 57 mm[Hg] [facility] Heart rate 2022-10-23 15:43:00 81 /min [facility] Body temperature 2022-10-23 15:43:00 36.72 Grace [facility] Respiratory rate 2022-10-23 15:43:00 18 /min [facility] Body weight 2022-10-23 15:43:00 117.845 kg [facility] BMI 2022-10-23 15:43:00 44.59 kg/m2 [facility] Heart rate 2022-10-10 12:00:00 85 /min [facility] Body temperature 2022-10-10 12:00:00 37.06 Grace [facility] Respiratory rate 2022-10-10 12:00:00 18 /min [facility] Systolic blood pressure 2022-10-10 07:00:00 113 mm[Hg] [facility] Diastolic blood pressure 2022-10-10 07:00:00 47 mm[Hg] [facility] Oxygen saturation in Arterial blood by Pulse oximetry 2022-10-10 07:00:00 100 /min [facility] Body height 2022-10-08 10:28:00 162.6 cm [facility] Body weight 2022-10-08 10:28:00 124.83 kg [facility] BMI 2022-10-08 10:28:00 47.24 kg/m2 [facility] Systolic blood pressure 2022-10-08 14:30:00 129 mm[Hg] BP location changed to lower arms [facility] Diastolic blood pressure 2022-10-08 14:30:00 67 mm[Hg] BP location changed to lower arms [facility] Heart rate 2022-10-08 14:30:00 63 /min [facility] Oxygen saturation in Arterial blood by Pulse oximetry 2022-10-08 14:30:00 99 /min [facility] Body temperature 2022-10-08 14:28:00 36.22 Grace [facility] Respiratory rate 2022-10-08 14:28:00 18 /min [facility] Body height 2022-10-08 10:28:00 162.6 cm [facility] Body weight 2022-10-08 10:28:00 124.83 kg [facility] BMI 2022-10-08 10:28:00 47.24 kg/m2 [facility] Heart rate 2022-10-06 01:00:00 94 /min [facility] Oxygen saturation in Arterial blood by Pulse oximetry 2022-10-06 01:00:00 97 /min [facility] Systolic blood pressure 2022-10-06 00:30:00 101 mm[Hg] [facility] Diastolic blood pressure 2022-10-06 00:30:00 60 mm[Hg] [facility] Body temperature 2022-10-06 00:00:00 36.72 Grace [facility] Respiratory rate 2022-10-06 00:00:00 18 /min [facility] Body weight 2022-10-05 21:30:00 124.739 kg based off pts last weight, unable to obtain weight pt was tranbsportred via EMS [facility] BMI 2022-10-05 21:30:00 47.20 kg/m2 [facility] Systolic blood pressure 2022-09-24 18:08:00 117 mm[Hg] [facility] Diastolic blood pressure 2022-09-24 18:08:00 71 mm[Hg] [facility] Heart rate 2022-09-24 18:08:00 111 /min [facility] Body temperature 2022-09-24 18:08:00 36.72 Grace [facility] Respiratory rate 2022-09-24 18:08:00 18 /min [facility] Body height 2022-09-24 18:08:00 162.6 cm [facility] Body weight 2022-09-24 18:08:00 124.739 kg [facility] BMI 2022-09-24 18:08:00 47.20 kg/m2 [facility] Heart rate 2022-09-23 04:53:00 86 /min [facility] Oxygen saturation in Arterial blood by Pulse oximetry 2022-09-23 04:53:00 100 /min [facility] Systolic blood pressure 2022-09-23 04:30:00 119 mm[Hg] [facility] Diastolic blood pressure 2022-09-23 04:30:00 57 mm[Hg] [facility] Body temperature 2022-09-23 04:30:00 36.94 Grace [facility] Respiratory rate 2022-09-23 04:30:00 18 /min [facility] Body height 2022-09-23 04:30:00 162.6 cm [facility] Body weight 2022-09-23 04:30:00 125.556 kg [facility] BMI 2022-09-23 04:30:00 47.51 kg/m2 [facility] Systolic blood pressure 2022-09-20 21:00:00 111 mm[Hg] [facility] Diastolic blood pressure 2022-09-20 21:00:00 70 mm[Hg] [facility] Heart rate 2022-09-20 21:00:00 100 /min [facility] Respiratory rate 2022-09-20 21:00:00 18 /min [facility] Body height 2022-09-20 21:00:00 162.6 cm [facility] Body weight 2022-09-20 21:00:00 124.286 kg [facility] BMI 2022-09-20 21:00:00 47.03 kg/m2 [facility] Heart rate 2022-09-17 22:05:00 87 /min [facility] Oxygen saturation in Arterial blood by Pulse oximetry 2022-09-17 22:05:00 100 /min [facility] Systolic blood pressure 2022-09-17 21:45:00 118 mm[Hg] [facility] Diastolic blood pressure 2022-09-17 21:45:00 53 mm[Hg] [facility] Body temperature 2022-09-17 21:45:00 36.94 Grace [facility] Respiratory rate 2022-09-17 21:45:00 18 /min [facility] Body height 2022-09-17 21:45:00 162.6 cm [facility] Body weight 2022-09-17 21:45:00 124.286 kg [facility] BMI 2022-09-17 21:45:00 47.03 kg/m2 [facility] Systolic blood pressure 2022-09-17 19:49:00 119 mm[Hg] [facility] Diastolic blood pressure 2022-09-17 19:49:00 74 mm[Hg] [facility] Heart rate 2022-09-17 19:49:00 92 /min [facility] Body temperature 2022-09-17 19:49:00 36.67 Grace [facility] Respiratory rate 2022-09-17 19:49:00 18 /min [facility] Body height 2022-09-17 19:49:00 162.6 cm [facility] Body weight 2022-09-17 19:49:00 124.286 kg [facility] BMI 2022-09-17 19:49:00 47.03 kg/m2 [facility] Oxygen saturation in Arterial blood by Pulse oximetry 2022-09-17 19:49:00 98 /min [facility] Systolic blood pressure 2022-09-11 16:29:00 101 mm[Hg] [facility] Diastolic blood pressure 2022-09-11 16:29:00 58 mm[Hg] [facility] Heart rate 2022-09-11 16:29:00 91 /min [facility] Body temperature 2022-09-11 16:29:00 36.83 Grace [facility] Body height 2022-09-11 16:29:00 162.6 cm [facility] Body weight 2022-09-11 16:29:00 123.832 kg [facility] BMI 2022-09-11 16:29:00 46.86 kg/m2 [facility] Heart rate 2022-09-02 08:30:00 91 /min [facility] Oxygen saturation in Arterial blood by Pulse oximetry 2022-09-02 08:30:00 98 /min [facility] Respiratory rate 2022-09-02 07:38:00 18 /min [facility] Systolic blood pressure 2022-09-02 07:37:00 120 mm[Hg] [facility] Diastolic blood pressure 2022-09-02 07:37:00 62 mm[Hg] [facility] Body temperature 2022-09-02 07:37:00 36.83 Grace [facility] Body height 2022-09-02 07:15:00 162.6 cm [facility] Body weight 2022-09-02 07:15:00 125.788 kg [facility] BMI 2022-09-02 07:15:00 47.60 kg/m2 [facility] Systolic blood pressure 2022-08-26 08:00:00 114 mm[Hg] [facility] Diastolic blood pressure 2022-08-26 08:00:00 45 mm[Hg] [facility] Heart rate 2022-08-26 08:00:00 88 /min [facility] Oxygen saturation in Arterial blood by Pulse oximetry 2022-08-26 08:00:00 99 /min [facility] Body temperature 2022-08-26 07:45:00 37.17 Grace [facility] Systolic blood pressure 2022-08-14 19:14:00 113 mm[Hg] [facility] Diastolic blood pressure 2022-08-14 19:14:00 72 mm[Hg] [facility] Heart rate 2022-08-14 19:14:00 91 /min [facility] Body temperature 2022-08-14 19:14:00 36.78 Grace [facility] Body height 2022-08-14 19:14:00 165.1 cm [facility] Body weight 2022-08-14 19:14:00 123.832 kg [facility] BMI 2022-08-14 19:14:00 45.43 kg/m2 [facility] Systolic blood pressure 2022-08-06 15:12:00 113 mm[Hg] [facility] Diastolic blood pressure 2022-08-06 15:12:00 70 mm[Hg] [facility] Heart rate 2022-08-06 15:12:00 92 /min [facility] Body height 2022-08-06 15:12:00 165.1 cm [facility] Body weight 2022-08-06 15:12:00 123.741 kg [facility] BMI 2022-08-06 15:12:00 45.40 kg/m2 [facility] Systolic blood pressure 2022-07-30 15:02:00 103 mm[Hg] [facility] Diastolic blood pressure 2022-07-30 15:02:00 70 mm[Hg] [facility] Heart rate 2022-07-30 15:02:00 93 /min [facility] Body temperature 2022-07-30 15:02:00 36.94 Grace [facility] Respiratory rate 2022-07-30 15:02:00 16 /min [facility] Body height 2022-07-30 15:02:00 165.1 cm [facility] Body weight 2022-07-30 15:02:00 123.651 kg [facility] BMI 2022-07-30 15:02:00 45.36 kg/m2 [facility] Oxygen saturation in Arterial blood by Pulse oximetry 2022-07-30 15:02:00 98 /min [facility] Systolic blood pressure 2022-07-17 18:29:00 117 mm[Hg] [facility] Diastolic blood pressure 2022-07-17 18:29:00 60 mm[Hg] [facility] Heart rate 2022-07-17 18:29:00 87 /min [facility] Body temperature 2022-07-17 18:29:00 37.28 Grace [facility] Respiratory rate 2022-07-17 18:29:00 16 /min [facility] Body height 2022-07-17 18:29:00 165.1 cm [facility] Body weight 2022-07-17 18:29:00 122.471 kg [facility] BMI 2022-07-17 18:29:00 44.93 kg/m2 [facility] Oxygen saturation in Arterial blood by Pulse oximetry 2022-07-17 18:29:00 99 /min [facility] Systolic blood pressure 2022-07-02 18:36:00 119 mm[Hg] [facility] Diastolic blood pressure 2022-07-02 18:36:00 75 mm[Hg] [facility] Heart rate 2022-07-02 18:36:00 63 /min [facility] Body temperature 2022-07-02 18:36:00 36.44 Grace [facility] Respiratory rate 2022-07-02 18:36:00 16 /min [facility] Body height 2022-07-02 18:36:00 165.1 cm [facility] Body weight 2022-07-02 18:36:00 124.286 kg [facility] BMI 2022-07-02 18:36:00 45.60 kg/m2 [facility] Systolic blood pressure 2022-06-05 00:01:00 138 mm[Hg] [facility] Diastolic blood pressure 2022-06-05 00:01:00 74 mm[Hg] [facility] Heart rate 2022-06-05 00:01:00 95 /min [facility] Body temperature 2022-06-05 00:01:00 37 Grace [facility] Respiratory rate 2022-06-05 00:01:00 18 /min [facility] Body height 2022-06-05 00:01:00 165.1 cm [facility] Body weight 2022-06-05 00:01:00 120.203 kg [facility] BMI 2022-06-05 00:01:00 44.10 kg/m2 [facility] Oxygen saturation in Arterial blood by Pulse oximetry 2022-06-05 00:01:00 100 /min [facility] Systolic blood pressure 2022-05-02 23:00:00 148 mm[Hg] [facility] Diastolic blood pressure 2022-05-02 23:00:00 45 mm[Hg] [facility] Heart rate 2022-05-02 23:00:00 181 /min [facility] Respiratory rate 2022-05-02 23:00:00 16 /min [facility] Oxygen saturation in Arterial blood by Pulse oximetry 2022-05-02 23:00:00 98 /min [facility] Body temperature 2022-05-02 22:42:00 36.5 Grace [facility] Body height 2022-05-02 22:42:00 162.6 cm [facility] Body weight 2022-05-02 22:42:00 121.11 kg [facility] BMI 2022-05-02 22:42:00 45.83 kg/m2 [facility] Systolic blood pressure 2022-03-06 21:48:00 124 mm[Hg] [facility] Diastolic blood pressure 2022-03-06 21:48:00 69 mm[Hg] [facility] Heart rate 2022-03-06 21:48:00 99 /min [facility] Body temperature 2022-03-06 21:48:00 37.17 Grace [facility] Respiratory rate 2022-03-06 21:48:00 18 /min [facility] Body weight 2022-03-06 21:48:00 108.863 kg [facility] BMI 2022-03-06 21:48:00 38.74 kg/m2 [facility] Oxygen saturation in Arterial blood by Pulse oximetry 2022-03-06 21:48:00 99 /min [facility] Systolic blood pressure 2021-12-30 10:32:26 152 mm[Hg] [facility] Diastolic blood pressure 2021-12-30 10:32:26 85 mm[Hg] [facility] Heart rate 2021-12-30 10:32:26 84 /min [facility] Respiratory rate 2021-12-30 10:32:26 20 /min [facility] Oxygen saturation in Arterial blood by Pulse oximetry 2021-12-30 10:32:26 98 /min [facility] Body temperature 2021-12-30 09:06:00 37.06 Grace [facility] Body height 2021-12-30 09:06:00 167.6 cm [facility] Body weight 2021-12-30 09:06:00 108.863 kg [facility] BMI 2021-12-30 09:06:00 38.74 kg/m2 [facility] Systolic blood pressure 2021-12-13 21:44:00 146 mm[Hg] [facility] Diastolic blood pressure 2021-12-13 21:44:00 81 mm[Hg] [facility] Heart rate 2021-12-13 21:44:00 93 /min [facility] Body temperature 2021-12-13 21:44:00 36.61 Grace [facility] Respiratory rate 2021-12-13 21:44:00 20 /min [facility] Body height 2021-12-13 21:44:00 165.1 cm [facility] Body weight 2021-12-13 21:44:00 90.719 kg [facility] BMI 2021-12-13 21:44:00 33.28 kg/m2 [facility] Oxygen saturation in Arterial blood by Pulse oximetry 2021-12-13 21:44:00 100 /min [facility] Systolic blood pressure 2023-07-15 15:17:00 121 mm[Hg] [facility] Diastolic blood pressure 2023-07-15 15:17:00 80 mm[Hg] [facility] Heart rate 2023-07-15 15:17:00 76 /min [facility] Body height 2023-07-15 15:17:00 167.6 cm [facility] Body weight 2023-07-15 15:17:00 111.585 kg [facility] BMI 2023-07-15 15:17:00 39.71 kg/m2 [facility] Oxygen saturation in Arterial blood by Pulse oximetry 2023-07-15 15:17:00 98 /min [facility] Body temperature 2023-05-30 15:56:00 36.78 Grace [facility] Respiratory rate 2023-05-30 15:56:00 20 /min [facility] Procedures Procedure Date / Time Performed Performing Clinician Source RADIOLOGY DOCUMENTATION 2023-07-17 15:00:34 Doct or Unassigned, [place] [facility] RADIOLOGY DOCUMENTATION 2023-07-17 15:00:34 Doct or Unassigned, [place] [facility] CBC WITH DIFF 2023-07-15 15:57:00 Franny Brenner [facility] URINALYSIS 2023-07-15 15:57:00 Franny Brenner [facility] CBC WITH DIFF 2023-07-15 15:57:00 Franny Brenner [facility] COMP. METABOLIC PANEL (91245) 2023-07-15 15:57:00 Franny Brenner [facility] FREE T4 2023-07-15 15:57:00 [facility] GLYCOSYLATED HEMOGLOBIN (A1C) 2023-07-15 15:57:00 Toro Brennerssica [facility] LIPID PANEL (84344)(TOTAL CHOLESTEROL, TRIGLYCERIDES, HDL) 2023-07-15 15:57:00 Franny Brenner [facility] URINALYSIS 2023-07-15 15:57:00 Franny Brenner [facility] THYROID STIMULATING HORMONE 2023-07-15 15:57:00 Toro Brennerssica [facility] MICROALBUMIN URINE 2023-07-15 15:57:00 Toro Brennerssica [facility] DME/SUPPLY JUSTIFICATION 2023-05-31 16:43:38 Doc tor Unassigned, [place] [facility] ASSIGNMENT OF BENEFITS 2023-05-20 19:45:21 Docto r Unassigned, [place] [facility] CONSENT/REFUSAL FOR DIAGNOSIS AND TREATMENT 2023-05-20 19:01:35 Doctor Unassigned, [place] [facility] CT CERVICAL SPINE WO CONTRAST 2023-05-10 21:33:46 Baljinder antonia [facility] CT HEAD WO CONTRAST 2023-05-10 21:33:46 Olinda Gale [facility] CT LUMBAR SPINE WO CONTRAST 2023-05-10 21:33:46 Baljinder antonia [facility] CT THORACIC SPINE WO CONTRAST 2023-05-10 21:33:46 Olinda Gale [facility] POCT TEST 2023-05-10 20:56:00 Olinda Gale [facility] CONSENT/REFUSAL FOR DIAGNOSIS AND TREATMENT 2023-05-10 20:31:31 Doctor Unassigned, [place] [facility] CONSENT/REFUSAL FOR DIAGNOSIS AND TREATMENT 2023-02-20 22:14:02 Doctor Unassigned, [place] [facility] PATIENT FINANCIAL POLICY 2022-10-23 15:05:02 Doctor Unassigned, [place] [facility] POCT GLUCOSE (AUTOMATED) 2022-10-10 02:44[facility] 2022-10-09 08:31:00 Irma [facility] CBC WITH DIFF 2022-10-09 08:31:00 Irma [facility] POCT GLUCOSE (AUTOMATED) 2022-10-08 21:21:[address] [facility] POCT GLUCOSE (AUTOMATED) 2022-10-08 21:21:[address] [facility] POCT GLUCOSE (AUTOMATED) 2022-10-08 17:44:[address] [facility] POCT GLUCOSE (AUTOMATED) 2022-10-08 17:44:[address] [facility] SECTION 2022-10-08 12:06:00 Irma [facility] SECTION 2022-10-08 12:06:00 Irma [facility] CBC WITH DIFF 2022-10-08 10:54:00 Irma [facility] HEPATITIS B SURFACE ANTIGEN 2022-10-08 10:54:[address] [facility] HB ABO GROUPING 2022-10-08 10:54:00 [facility] RHO (D) IMMUNE GLOBULIN 2022-10-08 10:54:[address] [facility] ADC OR MARK LOPEZ - RPR 2022-10-08 10:54:[address] [facility] HIV 1/2 AG-AB WITH REFLEX 2022-10-08 10:54:[address] [facility] CBC WITH DIFF 2022-10-08 10:54:00 Solis [facility] HEPATITIS B SURFACE ANTIGEN 2022-10-08 10:54:[address] [facility] HB ABO GROUPING 2022-10-08 10:54:00 [facility] RHO (D) IMMUNE GLOBULIN 2022-10-08 10:54:[address] [facility] ADC OR MARK ONLY - RPR 2022-10-08 10:54:00 IrmaNayeli Johnathan [facility] HIV 1/2 AG-AB WITH REFLEX 2022-10-08 10:54:00 SolisNayeli [facility] HIV 1/2 AG-AB WITH REFLEX 2022-10-08 10:54:00 SolisNayeli Johnathan [facility] POCT GLUCOSE (AUTOMATED) 2022-10-08 10:47:00 IrmaNayeli Johnathan [facility] POCT GLUCOSE (AUTOMATED) 2022-10-08 10:47:00 [facility] NOTICE OF PRIVACY PRACTICES 2022-10-08 10:16:24 Doctor Unassigned, [place] [facility] NOTICE OF PRIVACY PRACTICES 2022-10-08 10:16:24 Doctor Unassigned, [place] [facility] CONSENT/REFUSAL FOR DIAGNOSIS AND TREATMENT 2022-10-08 10:14:17 Doctor Unassigned, [place] [facility] CONSENT/REFUSAL FOR DIAGNOSIS AND TREATMENT 2022-10-08 10:14:17 Doctor Unassigned, [place] [facility] ASSIGNMENT OF BENEFITS 2022-10-08 10:13:52 Docto r Unassigned, [place] [facility] ASSIGNMENT OF BENEFITS 2022-10-08 10:13:52 Docto r Unassigned, [place] [facility] L&D VISIT (NON-DELIVERED) 2022-10-05 05:01:00 Doctor Unassigned, [place] [facility] EMERGENCY DEPARTMENT DOCUMENTS 2022-10-05 05:01:00 Doctor Unassigned, [place] [facility] L&D VISIT (NON-DELIVERED) 2022-10-05 05:01:00 Doctor Unassigned, [place] [facility] SECOND AND THIRD TRIMESTER ULTRASOUND 2022-09-25 15:56:00 Royal Atkinson [facility] NON-STRESS TEST 2022-09-24 18:41:11 Nayeli Solis [facility] URINALYSIS 2022-09-23 04:58:00 Yojana Parker [facility] ADC CLC OR LCC ONLY - WET PREP 2022-09-23 04:58:00 Elena [facility] ASSIGNMENT OF BENEFITS 2022-09-23 03:56:01 Docto r Unassigned, [place] [facility] CONSENT/REFUSAL FOR DIAGNOSIS AND TREATMENT 2022-09-23 03:54:28 Doctor Unassigned, [place] [facility] NON-STRESS TEST 2022-09-20 21:28:02 Elena [facility] CONSENT/REFUSAL FOR DIAGNOSIS AND TREATMENT 2022-09-17 21:15:01 Doctor Unassigned, [place] [facility] ASSIGNMENT OF BENEFITS 2022-09-17 21:14:19 Docto r Unassigned, [place] [facility] NON-STRESS TEST 2022-09-17 20:56:02 Elena [facility] NON-STRESS TEST 2022-09-11 23:07:15 Nayeli Solis [facility] CBC WITH DIFF 2022-09-11 17:48:00 Nayeli Solis [facility] HIV 1/2 AG-AB WITH REFLEX 2022-09-11 17:48:00 Nayeli Solis [facility] POCT URINALYSIS W/O SPECIFIC GRAVITY 2022-09-11 00:00:00 Nayeli Solis [facility] POCT GLUCOSE (AUTOMATED) 2022-09-02 07:57:00 Adum, Rox huy L [facility] ASSIGNMENT OF BENEFITS 2022-09-02 07:08:16 Docto r Unassigned, [place] [facility] ADC CLC OR LCC ONLY - WET PREP 2022-08-26 07:39:00 Nayeli Solis [facility] POCT URINALYSIS W/O SPECIFIC GRAVITY 2022-08-14 00:00:00 Nayeli Solis [facility] GC & CHLAMYDIA AMPLIFIED ASSAY 2022-07-30 15:33:00 Deon [facility] GALV ONLY - VAGINAL PATHOGENS BY NUCLEIC ACID TESTING 2022-07-30 15:33:00 Royal Atkinson [facility] TDAP VACCINE, >11 YRS, IM 2022-07-30 15:32:14 Royal Atkinson [facility] POCT URINALYSIS W/O SPECIFIC GRAVITY 2022-07-30 00:00:00 Royal Atkinson [facility] URINALYSIS 2022-07-17 19:51:00 Seferino Ambrose [facility] COMP. METABOLIC PANEL ([id number]) 2022-07-17 19:48:00 Seferino Ambrose [facility] CBC WITH DIFF 2022-07-17 19:48:00 Seferino Ambrose [facility] ASSIGNMENT OF BENEFITS 2022-07-17 19:39:31 Docto r Unassigned, [place] [facility] CONSENT/REFUSAL FOR DIAGNOSIS AND TREATMENT 2022-07-17 19:39:13 Doctor Unassigned, [place] [facility] HCV ANTIBODY 2022-07-05 15:31:00 Royal Atkinson [facility] GC & CHLAMYDIA AMPLIFIED ASSAY 2022-07-02 18:48[facility] 2022-07-02 18:48:00 Royal Atkinson [facility] CONSENT/REFUSAL FOR DIAGNOSIS AND TREATMENT 2022-07-02 18:22:22 Doctor Unassigned, [place] [facility] POCT URINALYSIS W/O SPECIFIC GRAVITY 2022-07-02 00:00:00 Royal Atkinson [facility] NOTICE OF PRIVACY PRACTICES 2022-06-04 23:33:20 Doctor Unassigned, [place] [facility] CONSENT/REFUSAL FOR DIAGNOSIS AND TREATMENT 2022-06-04 23:32:28 Doctor Unassigned, [place] [facility] L&D VISIT (NON-DELIVERED) 2022-06-04 05:01:00 Doctor Unassigned, [place] [facility] US PELVIS > 14 WEEKS 2022-05-03 00:41:32 Edgar Oliva [facility] POCT TEST 2022-05-02 22:57:00 Edgar Oliva [facility] LIPASE 2022-05-02 22:56:00 Edgar Oliva [facility] COMP. METABOLIC PANEL ([id number]) 2022-05-02 22:56:00 Edgar Oliva [facility] TOTAL BETA HCG ASSAY 2022-05-02 22:56:00 Dalila Oliva [facility] CBC WITH DIFF 2022-05-02 22:56:00 Edgar Oliva [facility] URINALYSIS 2022-05-02 22:56:00 Edgar Oliva [facility] CONSENT/REFUSAL FOR DIAGNOSIS AND TREATMENT 2022-05-02 22:35:14 Doctor Unassigned, [place] [facility] FIRST TRIMESTER LESS THAN 14 WEEKS WITH TRANSVAGINAL 2022-03-06 23:49:15 [facility] TOTAL BETA HCG ASSAY 2022-03-06 22:21:00 Oscar Edwards [facility] CBC WITH DIFF 2022-03-06 22:21:00 Lyly [facility] HB ABO GROUPING 2022-03-06 22:20:00 Ever Edwards [facility] POCT TEST 2022-03-06 22:06:00 Lyly [facility] XR CHEST 2 VW 2021-12-30 10:05:32 Jorden Brooke [facility] RAPID STREP SCREEN FOR GROUP A 2021-12-30 09:35:00 Edwardo [place] URINALYSIS 2021-12-30 09:32:00 Jorden Brooke [facility] RAPID INFLUENZA A/B 2021-12-30 09:32:00 Edwardo, [facility] COVID-19 (ID NOW RAPID TESTING) 2021-12-30 09:32:00 Edwardo [place] CONSENT/REFUSAL FOR DIAGNOSIS AND TREATMENT 2021-12-30 09:02:39 Doctor Unassigned, [place] [facility] XR CHEST 1 VW 2021-12-13 23:55:13 Makayla Bettencourt [facility] LIPASE 2021-12-13 23:24:00 Makayla Bettencourt Un [facility] COMP. METABOLIC PANEL ([id number]) 2021-12-13 23:24:00 Makayla Bettencourt [facility] CBC WITH DIFF 2021-12-13 23:24:00 [facility] 2021-12-13 23:10:00 Loy Bettencourt [facility] URINALYSIS 2021-12-13 23:00:00 Makayla Bettencourt Un [facility] US GALL BLADDER 2021-12-13 22:44:06 Makayla Bettencourt [facility] CONSENT/REFUSAL FOR DIAGNOSIS AND TREATMENT 2021-12-13 21:16:31 Doctor Unassigned, [place] [facility] LAB ONLY PAP SMEAR-LIQUID BASED 2021-03-16 21:30:00 Nayeli Solis [facility] Encounters Start Date/Time End Date/Time Encounter Type Admission Type Attending [facility] Care Facility Care Department Encounter ID Source 2022-09-17 16:09:46 Outpatient P [facility] [id number] [facility] 2021-06-06 14:23:38 Outpatient X [facility] [id number] [facility] 2020-12-26 04:28:49 Outpatient P [facility] [id number] [facility] 2020-12-26 04:28:49 Emergency [facility] [id number] [facility] 2023-07-17 00:00:00 2024-04-11 07:43:31 Orders Only Doctor Unassigned, [place] Doctor Unassigned, [place] [facility] [id number] [facility] 2022-09-11 00:00:00 2024-04-11 02:40:05 Orders Only Talya Martinez Kelly M [facility] SPECIALTY CARE 1.2840.114 350.1.13.10 4.2.7.2.686 [id number] [facility] 2023-10-31 08:40:00 2023-10-31 08:40:00 Outpatient R CHUCK LARA [facility] [id number] [facility] 2023-09-25 14:00:00 2023-09-25 14:00:00 Outpatient R OBI-OBIE , WALLY OBI-OBIE WALLY [facility] [id number] [facility] 2023-09-19 00:00:00 2023-09-20 08:53:32 Telephone Pcp, [facility] Not Have [facility] 1.2.840.114 350.1.13.10 4.2.7.2.686 [id number] [id number] [facility] 2023-09-05 11:00:00 2023-09-05 11:00:00 Outpatient R ESTRELLITA WYNN PAMELA [facility] [id number] [facility] 2023-08-19 10:30:00 2023-08-19 10:30:00 Outpatient R MAGNUS GUMZAN [facility] [id number] [facility] 2023-07-30 15:00:00 2023-07-30 15:00:00 Outpatient KHALIDA ASIF [facility] [id number] [facility] 2023-07-19 16:00:00 2023-07-19 16:00:00 Outpatient FRANNY AGUDELO [facility] [id number] [facility] 2023-07-17 00:00:00 2023-07-17 09:56:58 Telephone Mariel Ramirez 1.2.840.1 63660.1.1 3.104.2.7 .3.551098 .8 [id number] [facility] 2023-07-16 00:00:00 2023-07-17 08:43:47 Telephone Franny Brenner 1.2.840.1 32176.1.1 3.104.2.7 .3.291789 .8 [id number] [facility] 2023-07-15 00:00:00 2023-07-15 13:23:16 Telephone Estrellita Wynn 1.2.840.1 99872.1.1 3.104.2.7 .3.137181 .8 [id number] [facility] 2023-07-15 00:00:00 2023-07-15 13:01:56 Telephone Franny Brenner 1.2.840.1 57218.1.1 3.104.2.7 .3.707645 .8 [id number] [facility] 2023-07-15 10:45:00 2023-07-15 11:09:27 Engineering Technician Visit Franny Brenner 2, [facility] 1.2.840.1 89785.1.1 3.104.2.7 .3.950261 .8 [id number] [facility] 2023-07-15 09:00:00 2023-07-15 10:39:16 Outpatient R FRANNY BRENNER [facility] [id number] [facility] 2023-07-15 09:00:00 2023-07-15 10:39:16 Office Visit Franny Brenner 1.2.840.1 67184.1.1 3.104.2.7 .3.411821 .8 [id number] [facility] 2023-07-15 00:00:00 2023-07-15 00:00:00 Travel 1.2.840.1 28892.1.1 3.104.2.7 .3.721365 .8 1.2.840.114 350.1.13.10 4.2.7.3.698 084.8 [id number] [facility] 2023-05-23 00:00:00 2023-06-29 18:12:15 Patient Secure Msg Doctor Unassigned, [place] 1.2.840.1 99866.1.1 3.104.2.7 .3.580462 .8 [id number] [facility] 2023-06-20 10:58:20 2023-06-20 10:58:20 Outpatient SFA [facility] [id number] Lavell Giles 2023-06-19 13:30:00 2023-06-19 13:30:00 Outpatient R VALERIE BARAJAS [facility] [id number] [facility] 2023-06-07 14:30:00 2023-06-07 14:30:00 Outpatient R TOM DOWNS [facility] [id number] [facility] 2023-05-31 00:00:00 2023-06-03 08:15:59 Telephone Estrellita Wynn 1.2.840.1 88006.1.1 3.104.2.7 .3.854880 .8 [id number] [facility] 2023-05-30 11:00:00 2023-05-30 11:34:13 Outpatient R ESTRELLITA WYNN [facility] [id number] [facility] 2023-05-30 11:00:00 2023-05-30 11:34:13 Office Visit Estrellita Wynn 1.2.840.1 00983.1.1 3.104.2.7 .3.126222 .8 [id number] [facility] 2023-05-30 00:00:00 2023-05-30 00:00:00 Travel 1.2.840.1 06477.1.1 3.104.2.7 .3.507746 .8 1.2.840.114 350.1.13.10 4.2.7.3.698 084.8 [id number] [facility] 2023-05-20 14:06:00 2023-05-20 15:46:00 Emergency X Elias MARTIN [facility] E[facility] [id number] [facility] 2023-05-20 14:06:00 2023-05-20 15:46:00 Emergency Elias Martin 1.2.840.1 31918.1.1 3.104.2.7 .3.967766 .8 [id number] [facility] 2023-05-20 00:00:00 2023-05-20 00:00:00 Travel 1.2.840.1 48735.1.1 3.104.2.7 .3.075957 .8 1.20.114 350.1.13.10 4.2.7.3.698 084.8 [id number] [facility] 2023-05-10 15:37:00 2023-05-10 17:36:00 Emergency X BALJINDER [facility] E[facility] [id number] [facility] 2023-05-10 15:37:00 2023-05-10 17:36:00 Emergency Baljinder [facility] 1.840.114 350.1.13.10 4.2.7.2.686 [id number] [id number] [facility] 2023-02-20 16:30:00 2023-02-20 18:03:00 Emergency X GRETA FOOTE [facility] ERT [id number] [facility] 2023-02-20 16:30:00 2023-02-20 18:03:00 Emergency Greta Foote [facility] 1.2840.114 350.1.13.10 4.2.7.2.686 [id number] [id number] [facility] 2022-12-18 16:15:00 2022-12-18 16:15:00 Outpatient R NAYELI SOLIS [facility] [id number] [facility] 2022-12-18 00:00:00 2022-12-18 00:00:00 Telephone Nayeli Solis [facility] PROFESSIO [facility] 1.840.114 350.1.13.10 4.2.7.2.686 [id number] 134 [id number] [facility] 2022-12-06 15:30:00 2022-12-06 15:30:00 Outpatient R ROB SOLISEN [facility] [id number] [facility] 2022-12-04 00:00:00 2022-12-04 00:00:00 Telephone Nayeli Solis [facility] 1.2.840.114 350.1.13.10 4.2.7.2.686 [id number] 134 [id number] [facility] 2022-10-23 10:30:00 2022-10-23 10:43:01 Outpatient R ROB SOLISEN [facility] [id number] [facility] 2022-10-23 10:30:00 2022-10-23 10:43:01 Routine Visit Yojana Pineda Nayeli Solis [facility] 1.2.840.114 350.1.13.10 4.2.7.2.686 [id number] 134 [id number] [facility] 2022-10-23 00:00:00 2022-10-23 00:00:00 Orders Only Doctor Unassigned, [place] [facility] 1.2840.114 350.1.13.10 4.2.7.2.686 [id number] [facility] 2022-10-23 00:00:00 2022-10-23 00:00:00 Telephone Nayeli Solis [facility] 1.2.840.114 350.1.13.10 4.2.7.2.686 [id number] 134 [id number] [facility] 2022-10-22 14:30:00 2022-10-22 14:30:00 Outpatient R [facility] [id number] [facility] 2022-10-16 15:00:00 2022-10-16 15:00:00 Outpatient R [facility] [id number] [facility] 2022-10-08 05:17:00 2022-10-10 10:55:00 Inpatient P NAYELI SOLIS [facility] JO[facility] [id number] [facility] 2022-10-08 05:17:00 2022-10-10 10:55:00 Hospital Encounter Nayeli Solis [facility] 1.2.840.114 350.1.13.10 4.2.7.2.686 [id number] [id number] [facility] 2022-10-08 08:00:00 2022-10-08 09:37:00 Surgery Nayeli Solis [facility] 1.2.840.114 350.1.13.10 4.2.7.2.686 [id number] [id number] [facility] 2022-10-06 00:00:00 2022-10-06 00:00:00 Nurse Triage Cherri Li [facility] 1.2.840.114 350.1.13.10 4.2.7.2.686 [id number] 019 [id number] [facility] 2022-10-05 14:48:00 2022-10-05 20:10:00 Outpatient P NAYELI SOLIS [facility] [id number] [facility] 2022-10-05 14:48:00 2022-10-05 20:10:00 Hospital Encounter Nayeli Solis [facility] 1.2.840.114 350.1.13.10 4.2.7.2.686 [id number] 083 [id number] [facility] 2022-09-27 14:00:00 2022-09-27 14:00:00 Outpatient R [facility] [id number] [facility] 2022-09-26 00:00:00 2022-09-26 00:00:00 Case Management Royal Atkinson [facility] 1.2840.114 350.1.13.10 4.2.7.2.686 [id number] 134 [id number] [facility] 2022-09-26 00:00:00 2022-09-26 00:00:00 Telephone Nayeli Solis [facility] 1.2.840.114 350.1.13.10 4.2.7.2.686 [id number] [facility] 2022-09-25 10:15:00 2022-09-25 10:53:24 Outpatient P SADIA MORALES [facility] [id number] [facility] 2022-09-25 10:15:00 2022-09-25 10:53:24 Engineering Technician Visit Ultrasound, [facility] Sadia Morales [facility] APPLICATION SECURITY CONSULTANT [facility] MATERNAL & CHILD HEALTH [facility] 1.2.840.114 350.1.13.10 4.2.7.2.686 [id number] [facility] 2022-09-24 14:00:00 2022-09-24 14:00:00 Routine Visit Room, [facility] Nayeli Solis [facility] 1.2.840.114 350.1.13.10 4.2.7.2.686 [id number] 134 [id number] [facility] 2022-09-24 14:00:00 2022-09-24 13:40:46 Outpatient R NAYELI SOLIS [facility] [id number] [facility] 2022-09-22 23:02:00 2022-09-23 01:00:00 Outpatient X PEREZ-TAY S, YOJANA PEREZ-TAY SKEIRAYOJANA [facility] [id number] [facility] 2022-09-22 23:02:00 2022-09-23 01:00:00 Emergency [facility] 1.2.840.114 350.1.13.10 4.2.7.2.686 [id number] 083 [id number] [facility] 2022-09-20 15:00:00 2022-09-20 15:15:00 [facility] PROFESSIO NAL [facility]ILDING 1.2.840.114 350.1.13.10 4.2.7.2.686 [id number] 134 [id number] [facility] 2022-09-20 15:00:00 2022-09-20 15:00:00 Outpatient R PEREZ-TAY S, YOJANA PEREZ-TAY S, YOJANA [facility] [id number] [facility] 2022-09-17 16:13:00 2022-09-17 17:15:00 Outpatient P PEREZ-TAY S, YOJANA PEREZ-TAY S, YOJANA [facility] [id number] [facility] 2022-09-17 16:13:00 2022-09-17 17:15:00 Hospital Encounter Perez-Tay s, Yojana [facility] 1.2.840.114 350.1.13.10 4.2.7.2.686 [id number] [id number] [facility] 2022-09-17 14:00:00 2022-09-17 15:30:08 Outpatient R PEREZ-TAY S, YOJANA PEREZ-TAY S, YOJANA [facility] [id number] [facility] 2022-09-17 14:00:00 2022-09-17 15:30:08 Routine Visit Room, [facility] Perez[facility]Tay s, [facility] 1.2.840.114 350.1.13.10 4.2.7.2.686 [id number] 134 [id number] [facility] 2022-09-14 00:00:00 2022-09-14 00:00:00 Patient Secure Msg Doctor Unassigned, [place] [facility] 1.2840.114 350.1.13.10 4.2.7.2.686 [id number] [facility] 2022-09-12 00:00:00 2022-09-12 00:00:00 Telephone Nayeli Solis [facility] 1.2840.114 350.1.13.10 4.2.7.2.686 [id number] 134 [id number] [facility] 2022-09-12 00:00:00 2022-09-12 00:00:00 Patient Secure Msg Doctor Unassigned, [place] [facility] 1.2840.114 350.1.13.10 4.2.7.2.686 [id number] 134 [id number] [facility] 2022-09-11 12:45:00 2022-09-11 13:00:00 Engineering Technician Visit Pob, Adc Lab Main Nayeli Solis [facility] 1.2.114 350.1.13.10 4.2.7.2.686 [id number] [facility] 2022-09-11 11:15:00 2022-09-11 12:34:05 Outpatient R NAYELI SOLIS [facility] [id number] [facility] 2022-09-11 11:15:00 2022-09-11 12:34:05 Routine Visit Nayeli Solis [facility] 1.284.114 350.1.13.10 4.2.7.2.686 [id number] 134 [id number] [facility] 2022-09-11 00:00:00 2022-09-11 00:00:00 Patient Outreach Nuvia Hercules [facility] 1.2.840.114 350.1.13.10 4.2.7.2.686 [id number] 134 [id number] [facility] 2022-09-10 15:00:00 2022-09-10 15:00:00 Outpatient R NAYELI SOLIS [facility] [id number] [facility] 2022-09-06 08:00:00 2022-09-06 08:00:00 Outpatient R NAYELI SOLIS [facility] [id number] [facility] 2022-09-02 02:22:00 2022-09-02 05:05:00 Outpatient X ADUMMONICA [facility] JO[facility] [id number] [facility] 2022-09-02 02:22:00 2022-09-02 05:05:00 Emergency AdumMonica [facility] 1.0.114 350.1.13.10 4.2.7.2.686 [id number] [id number] [facility] 2022-08-26 02:05:00 2022-08-26 07:04:00 Outpatient P NAYELI SOLIS [facility] [id number] [facility] 2022-08-26 02:05:00 2022-08-26 07:04:00 Hospital Encounter Nayeli Solis Johnathan [facility] 1..114 350.1.13.10 4.2.7.2.686 [id number] [id number] [facility] 2022-08-23 11:30:00 2022-08-23 12:00:00 Telemedici ne Visit Fellow, [facility] Sadia Morales [facility] APPLICATION SECURITY CONSULTANT [facility] 1..114 350.1.13.10 4.2.7.2.686 [id number] [facility] 2022-08-23 11:30:00 2022-08-23 11:30:00 Outpatient R SADIA MORALES [facility] [id number] [facility] 2022-08-23 00:00:00 2022-08-23 00:00:00 Case Management Royal Atkinson [facility] 1.114 350.1.13.10 4.2.7.2.686 [id number] 134 [id number] [facility] 2022-08-22 14:15:00 2022-08-22 14:53:31 Engineering Technician Visit Ultrasound, Bhavna Valle Jaswinder [facility] APPLICATION SECURITY CONSULTANT [facility] MATERNAL & CHILD HEALTH [facility] 1..114 350.1.13.10 4.2.7.2.686 [id number] [facility] 2022-08-22 14:15:00 2022-08-22 14:15:00 Outpatient P JASWINDER VALLE JASWINDER [facility] [id number] [facility] 2022-08-14 14:45:00 2022-08-14 15:09:41 Outpatient R NAYELI SOLIS [facility] [id number] [facility] 2022-08-14 14:45:00 2022-08-14 15:09:41 Routine Visit Nayeli Solis [facility] 1..114 350.1.13.10 4.2.7.2.686 [id number] 134 [id number] [facility] 2022-08-09 09:30:00 2022-08-09 10:00:00 Telemedici ne Visit Fellow, Paradise Browne [facility] APPLICATION SECURITY CONSULTANT [facility] MATERNAL & CHILD HEALTH [facility] 1..114 350.1.13.10 4.2.7.2.686 [id number] [facility] 2022-08-09 09:30:00 2022-08-09 09:30:00 Outpatient PARADISE YODER SHANNON [facility] [id number] [facility] 2022-08-09 00:00:00 2022-08-09 00:00:00 Patient Secure Msg Doctor Unassigned, [place] [facility] 1.2.840.114 350.1.13.10 4.2.7.2.686 [id number] [facility] 2022-08-06 15:00:00 2022-08-06 15:00:00 Outpatient R [facility] [id number] 2022-08-06 10:00:00 2022-08-06 10:40:09 [facility] 1.2.840.114 350.1.13.10 4.2.7.2.686 [id number] 134 [id number] [facility] 2022-08-05 00:00:00 2022-08-05 00:00:00 Telephone [facility] 1.2840.114 350.1.13.10 4.2.7.2.686 [id number] 134 [id number] [facility] 2022-07-30 10:00:00 2022-07-30 10:32:36 Outpatient R ROYAL ATKINSON [facility] [id number] [facility] 2022-07-30 10:00:00 2022-07-30 10:32:36 Routine Visit [facility] 1.2840.114 350.1.13.10 4.2.7.2.686 [id number] 134 [id number] [facility] 2022-07-27 14:30:00 2022-07-27 14:30:00 Outpatient R [facility] [id number] [facility] 2022-07-25 00:00:00 2022-07-25 00:00:00 Case Management TridimitrisKristiecj [facility] 1.84.114 350.1.13.10 4.2.7.2.686 [id number] 134 [id number] [facility] 2022-07-24 15:00:00 2022-07-24 15:46:35 Engineering Technician Visit 1, [facility] Room Lisa Mary F [facility] APPLICATION SECURITY CONSULTANT [facility] MATERNAL & CHILD [facility]ALTH [facility] 1.2840.114 350.1.13.10 4.2.7.2.686 [id number] [facility] 2022-07-24 15:00:00 2022-07-24 15:00:00 Outpatient P LISA, MARY [facility] [id number] [facility] 2022-07-17 13:31:00 2022-07-17 16:23:00 Emergency X SEFERINO AMBROSE [facility] ERT [id number] [facility] 2022-07-17 13:31:00 2022-07-17 16:23:00 Emergency Seferino Ambrose [facility] 1.84.114 350.1.13.10 4.2.7.2.686 [id number] [id number] [facility] 2022-07-17 15:15:00 2022-07-17 15:15:00 Outpatient R [facility] [id number] [facility] 2022-07-17 00:00:00 2022-07-17 00:00:00 Telephone [facility] 1.284.114 350.1.13.10 4.2.7.2.686 [id number] 134 [id number] [facility] 2022-07-12 00:00:00 2022-07-12 00:00:00 Telephone Royal Atkinson [facility] 1.2.840.114 350.1.13.10 4.2.7.2.686 [id number] 134 [id number] [facility] 2022-07-11 15:15:00 2022-07-11 15:15:00 Outpatient R [facility] [id number] [facility] 2022-07-11 00:00:00 2022-07-11 00:00:00 Telephone Tridimitris [facility] 1.2.840.114 350.1.13.10 4.2.7.2.686 [id number] 134 [id number] [facility] 2022-07-11 00:00:00 2022-07-11 00:00:00 Telephone [facility] 1.2.840.114 350.1.13.10 4.2.7.2.686 [id number] 134 [id number] [facility] 2022-07-11 00:00:00 2022-07-11 00:00:00 Telephone Deon [facility] 1.2.840.114 350.1.13.10 4.2.7.2.686 [id number] 134 [id number] [facility] 2022-07-11 00:00:00 2022-07-11 00:00:00 Telephone [facility] 1.2.840.114 350.1.13.10 4.2.7.2.686 [id number] 134 [id number] [facility] 2022-07-09 00:00:00 2022-07-09 00:00:00 Telephone Tridimitris [facility] 1.2.840.114 350.1.13.10 4.2.7.2.686 [id number] 134 [id number] [facility] 2022-07-05 09:30:00 2022-07-05 10:31:55 Engineering Technician Visit Lab, Ang - Db Royal Atkinson [facility] HILARIA GUTIERRES?[facility] 1.2.840.114 350.1.13.10 4.2.7.2.686 [id number] [facility] 2022-07-05 09:30:00 2022-07-05 09:30:00 Outpatient R [facility] [id number] [facility] 2022-07-05 00:00:00 2022-07-05 00:00:00 Patient Secure Msg Deon [facility] 1.840.114 350.1.13.10 4.2.7.2.686 [id number] 134 [id number] [facility] 2022-07-02 13:30:00 2022-07-02 13:58:26 Outpatient R ROYAL [facility]INSON [facility] [id number] [facility] 2022-07-02 13:30:00 2022-07-02 13:58:26 Initial Visit Royal Atkinson [facility] 1.2840.114 350.1.13.10 4.2.7.2.686 [id number] 134 [id number] [facility] 2022-07-02 00:00:00 2022-07-02 00:00:00 Orders Only Doctor Unassigned, [place] [facility] 1.2840.114 350.1.13.10 4.2.7.2.686 [id number] [facility] 2022-06-18 14:00:00 2022-06-18 14:00:00 Outpatient [facility] [id number] [facility] 2022-06-04 18:50:00 2022-06-04 19:30:00 Outpatient YOJANA MCCOLLUMIO-TAY S, YOJANA [facility] [id number] [facility] 2022-06-04 18:50:00 2022-06-04 19:30:00 Hospital Encounter Yojana Pineda [facility] 1.2.840.114 350.1.13.10 4.2.7.2.686 [id number] [facility] 2022-05-02 16:43:00 2022-05-02 20:01:00 Emergency X EDGAR OLIVA [facility] E[facility] [id number] [facility] 2022-05-02 16:43:00 2022-05-02 20:01:00 Emergency Edgar Oliva B [facility] 1.2.840.114 350.1.13.10 4.2.7.2.686 [id number] [facility] 2022-04-01 21:11:00 2022-04-02 00:48:00 Emergency EM Francisco Shepherd HCABM TAVO [id number] [facility] 2022-04-01 23:32:00 2022-04-01 23:32:00 Outpatient Francisco Shepherd HCACL LABO [id number] [facility] 2022-03-20 14:30:00 2022-03-20 14:30:00 Outpatient R NAYELI SOLIS [facility] [id number] [facility] 2022-03-13 00:00:00 2022-03-13 00:00:00 Patient Secure Msg Nayeli Solis [facility] 1..840.114 350.1.13.10 4.2.7.2.686 [id number] [facility] 2022-03-08 08:30:00 2022-03-08 08:30:00 Outpatient R ANDRES RILEY [facility] [id number] [facility] 2022-03-07 00:00:00 2022-03-07 00:00:00 Telephone Only, Ang-Rmchp Open Access [facility] APPLICATION SECURITY CONSULTANT [facility] 1.2.840.114 350.1.13.10 4.2.7.2.686 [id number] [facility] 2022-03-06 15:49:00 2022-03-06 19:17:00 [facility] [id number] 2022-03-06 15:49:00 2022-03-06 19:17:00 Emergency Irvin Edwards [facility] 1.2.840.114 350.1.13.10 4.2.7.2.686 [id number] [facility] 2022-03-05 09:30:00 2022-03-05 09:30:00 Outpatient R YOJANA PINEDA MARISOL [facility] [id number] [facility] 2022-02-12 10:00:00 2022-02-12 10:00:00 Outpatient ДМИТРИЙ FIGUEREDO [facility] [id number] [facility] 2022-02-08 15:15:00 2022-02-08 15:15:00 Outpatient SAMREEN VERGARA JORDYN [facility] [id number] [facility] 2021-12-30 04:02:00 2021-12-30 05:49:00 Emergency X [facility] [id number] [facility] 2021-12-30 04:02:00 2021-12-30 05:49:00 Emergency Jorden Brooke [facility] 1.2.840.114 350.1.13.10 4.2.7.2.686 [id number] [facility] 2021-12-20 00:00:00 2021-12-20 00:00:00 Eleanor Leiva [facility] APPLICATION SECURITY CONSULTANT [facility] 1.2.840.114 350.1.13.10 4.2.7.2.686 [id number] [facility] 2021-12-18 15:00:00 2021-12-18 15:00:00 Outpatient R ANETTE MORAN [facility] [id number] [facility] 2021-12-13 16:45:00 2021-12-13 19:49:00 Emergency X SG MAKAYLA [facility] ERT [id number] [facility] 2021-12-13 16:45:00 2021-12-13 19:49:00 Emergency SgMakayla montesinos [facility] 1.2.840.114 350.1.13.10 4.2.7.2.686 [id number] [facility] 2021-12-11 09:30:00 2021-12-11 09:30:00 [facility] [facility] [id number] [facility] 2021-12-08 15:00:00 2021-12-08 15:00:00 Outpatient R [facility] [id number] [facility] 2021-12-04 14:00:00 2021-12-04 14:00:00 Outpatient R [facility] [id number] [facility] 2021-12-01 13:20:00 2021-12-01 13:20:00 Outpatient ALISTAIR URIBE [facility] [id number] [facility] 2021-11-29 08:00:00 2021-11-29 08:00:00 Outpatient ELEANOR MALDONADO [facility] [id number] [facility] 2021-11-24 14:50:00 2021-11-24 14:50:00 Outpatient ALISTAIR URIBE [facility] [id number] [facility] 2021-11-17 00:00:00 2021-11-17 00:00:00 Telephone Latasha Ham [facility] APPLICATION SECURITY CONSULTANT [facility] MATERNAL & CHILD [facility] 1.2.840.114 350.1.13.10 4.2.7.2.686 [id number] [facility] 2021-11-13 00:00:00 2021-11-13 00:00:00 Telephone Eleanor Foote [facility] APPLICATION SECURITY CONSULTANT [facility] MATERNAL & CHILD [facility] 1.2.840.114 350.1.13.10 4.2.7.2.686 [id number] [facility] 2021-11-10 16:00:00 2021-11-10 16:47:49 Outpatient ELEANOR MALDONADO [facility] [id number] [facility] 2021-11-10 16:00:00 2021-11-10 16:47:49 Routine Visit Eleanor Foote [facility] APPLICATION SECURITY CONSULTANT [facility] MATERNAL & CHILD [facility] 1..840.114 350.1.13.10 4.2.7.2.686 [id number] [facility] 2021-11-10 00:00:00 2021-11-10 00:00:00 RefOneida John [facility] 1..840.114 350.1.13.10 4.2.7.2.686 [id number] 134 [id number] [facility] 2021-11-09 15:30:00 2021-11-09 15:30:00 Outpatient NICA DELGADO [facility] [id number] [facility] 2021-11-07 14:30:00 2021-11-07 14:30:00 Outpatient NICA DELGADO [facility] [id number] [facility] 2021-11-07 00:00:00 2021-11-07 00:00:00 Telephone [facility] 1.2.840.114 350.1.13.10 4.2.7.2.686 [id number] 134 [id number] [facility] 2021-10-27 00:00:00 2021-10-27 00:00:00 Telephone Provider, Yinka Whitney [facility] APPLICATION SECURITY CONSULTANT [facility]ERNAL [facility] 1.2840.114 350.1.13.10 4.2.7.2.686 [id number] [facility] 2021-10-26 08:30:00 2021-10-26 08:30:00 Outpatient R LATASHA HAM [facility] [id number] [facility] 2021-10-24 00:00:00 2021-10-24 00:00:00 Orders Only Doctor Unassigned, [place] [facility] 1.2840.114 350.1.13.10 4.2.7.2.686 [id number] 009 [id number] [facility] 2021-10-13 00:00:00 2021-10-13 00:00:00 Orders Only Doctor Unassigned, [place] [facility] 1.2840.114 350.1.13.10 4.2.7.2.686 [id number] [id number] [facility] 2021-10-06 15:45:00 2021-10-06 15:45:00 Routine Visit Oneida Kurtz [facility] BUILDING 1.2.840.114 350.1.13.10 4.2.7.2.686 [id number] 134 [id number] [facility] 2021-10-06 15:45:00 2021-10-06 15:19:54 Outpatient R ONEIDA KURTZ [facility] [id number] Alejo lucas [facility] 2021-10-06 00:00:00 2021-10-06 00:00:00 Telephone [facility]uliana [facility] 1.2.840.114 350.1.13.10 4.2.7.2.686 [id number] 134 [id number] [facility] 2021-10-06 00:00:00 2021-10-06 00:00:00 Telephone Nayeli Solis [facility] 1.2.840.114 350.1.13.10 4.2.7.2.686 [id number] 134 [id number] [facility] 2021-09-26 11:50:00 2021-09-28 15:10:00 Inpatient P NAYELI SOLIS [facility] JOSE [id number] [facility] 2021-09-26 11:50:00 2021-09-28 15:10:00 Hospital Encounter Nayeli Solis [facility] 1.2.840.114 350.1.13.10 4.2.7.2.686 [id number] [facility] 2021-09-26 17:22:24 2021-09-26 17:22:24 Anesthesia Event Cruz, Elkin Shayy [facility] 1.2.840.114 350.1.13.10 4.2.7.2.686 [id number] [id number] [facility] 2021-09-26 10:30:00 2021-09-26 11:00:00 Engineering Technician Visit Ultrasound, Adc Mfm Sadia Morales [facility] 1.2.840.114 350.1.13.10 4.2.7.2.686 [id number] 134 [id number] [facility] 2021-09-26 10:30:00 2021-09-26 10:30:00 Outpatient P [facility] [id number] [facility] 2021-09-26 10:30:00 2021-09-26 10:30:00 Outpatient P SADIA MORALES [facility] [id number] [facility] 2021-09-26 00:00:00 2021-09-26 00:00:00 Surgery Nayeli Solis [facility] 1.2.840.114 350.1.13.10 4.2.7.2.686 [id number] [facility] 2021-09-20 16:15:00 2021-09-20 16:15:00 Outpatient R [facility] [id number] [facility] 2021-09-20 16:15:00 2021-09-20 16:15:00 Outpatient R IRMA NAYELI [facility] [id number] [facility] 2021-09-19 00:00:00 2021-09-19 00:00:00 Patient Secure Msg Doctor Unassigned, [place] [facility] 1.2.840.114 350.1.13.10 4.2.7.2.686 [id number] 134 [id number] [facility] 2021-09-06 09:15:00 2021-09-06 09:15:00 Outpatient R [facility] [id number] [facility] 2021-09-04 15:00:00 2021-09-04 16:07:15 Outpatient R IRMA NAYELI [facility] [id number] [facility] 2021-09-04 15:00:00 2021-09-04 16:07:15 Nurse Visit Nurse, [facility] Irma Nayeli [facility] 1.2.840.114 350.1.13.10 4.2.7.2.686 [id number] 134 [id number] [facility] 2021-09-04 10:00:00 2021-09-04 10:00:00 Outpatient R [facility] [id number] [facility] 2021-09-01 00:00:00 2021-09-01 00:00:00 Case Management [facility] 1.2.840.114 350.1.13.10 4.2.7.2.686 [id number] 134 [id number] [facility] 2021-08-31 16:15:00 2021-08-31 16:47:37 [facility] [id number] 2021-08-31 16:15:00 2021-08-31 16:47:37 Routine Visit Yuliana Leigh [facility]ILD[facility] 1.2.840.114 350.1.13.10 4.2.7.2.686 [id number] [facility] 2021-08-30 15:45:00 2021-08-30 16:00:00 Engineering Technician Visit Pob, Adc Lab Main Nayeli Solis [facility] BUILDING 1.2.840.114 350.1.13.10 4.2.7.2.686 [id number] [facility] 2021-08-30 15:45:00 2021-08-30 15:45:00 Outpatient R NAYELI SOLIS [facility] [id number] [facility] 2021-08-30 15:45:00 2021-08-30 15:45:00 Outpatient R NAYELI SOLIS [facility] [id number] [facility] 2021-08-08 13:00:00 2021-08-08 13:00:00 Outpatient R [facility] [id number] [facility] 2021-08-03 16:00:00 2021-08-03 16:00:00 Routine Visit Nayeli Solis [facility] BUILDING 1.2.840.114 350.1.13.10 4.2.7.2.686 [id number] 134 [id number] [facility] 2021-08-03 16:00:00 2021-08-03 15:03:03 Outpatient R NAYELI SOLIS [facility] [id number] [facility] 2021-08-01 09:30:00 2021-08-01 10:15:00 Engineering Technician [facility] 1.2840.114 350.1.13.10 4.2.7.2.686 [id number] 134 [id number] [facility] 2021-08-01 09:30:00 2021-08-01 09:30:00 Outpatient P [facility] [id number] [facility] 2021-07-23 00:00:00 2021-07-23 00:00:00 Orders Only Doctor Unassigned, [place] [facility] 1.0.114 350.1.13.10 4.2.7.2.686 [id number] [id number] [facility] 2021-07-06 14:00:00 2021-07-06 14:00:00 Outpatient R [facility] [id number] [facility] 2021-07-06 13:00:00 2021-07-06 13:34:24 [id number] 2021-07-06 13:00:00 2021-07-06 13:34:24 Routine Visit Lu Yuliana [facility] 1.84.114 350.1.13.10 4.2.7.2.686 [id number] 134 [id number] [facility] 2021-06-23 08:30:00 2021-06-23 09:30:00 Engineering Technician Visit 1, [facility] Room LisaMary hansen [facility] APPLICATION SECURITY CONSULTANT [facility]ERNAL [facility]ILD [facility] 1.2840.114 350.1.13.10 4.2.7.2.686 [id number] [facility] 2021-06-23 08:30:00 2021-06-23 08:30:00 Outpatient MARY HERBERT [facility] [id number] [facility] 2021-06-19 00:00:00 2021-06-19 00:00:00 Patient Secure Msg Nayeli Solis [facility] 1..114 350.1.13.10 4.2.7.2.686 [id number] 134 [id number] [facility] 2021-06-12 16:00:00 2021-06-12 16:00:00 Outpatient YULIANA NICK [facility] [id number] [facility] 2021-06-12 00:00:00 2021-06-12 00:00:00 Patient Secure Msg Oneida Kurtz [facility] 1..114 350.1.13.10 4.2.7.2.686 [id number] 134 [id number] [facility] 2021-06-12 00:00:00 2021-06-12 00:00:00 Patient Secure Msg Nuvia Garcia [facility] 1.84.114 350.1.13.10 4.2.7.2.686 [id number] 134 [id number] [facility] 2021-06-09 09:45:00 2021-06-09 13:03:01 Outpatient DANI FISHER [facility] [id number] [facility] 2021-06-09 09:45:00 2021-06-09 13:03:01 Telemedici ne Visit Nisha Feliz Joseph W [facility] APPLICATION SECURITY CONSULTANT [facility]ERNAL [facility]ILD [facility] 1.84.114 350.1.13.10 4.2.7.2.686 [id number] [facility] 2021-06-08 15:30:00 2021-06-08 15:39:20 Routine Visit Nayeli Solis [facility] 1.2.840.114 350.1.13.10 4.2.7.2.686 [id number] 134 [id number] [facility] 2021-06-08 15:30:00 2021-06-08 15:39:20 Outpatient R NAYELI SOLIS [facility] [id number] [facility] 2021-06-08 14:30:00 2021-06-08 14:45:00 Engineering Technician Visit 2, Adc [facility] 1.2.840.114 350.1.13.10 4.2.7.2.686 [id number] [facility] 2021-06-08 00:00:00 2021-06-08 00:00:00 Patient Secure Msg Nayeli Solis [facility] BUILDING 1.2.840.114 350.1.13.10 4.2.7.2.686 [id number] 134 [id number] [facility] 2021-06-07 00:00:00 2021-06-07 00:00:00 Patient Secure Msg [facility] 1.2.840.114 350.1.13.10 4.2.7.2.686 [id number] 134 [id number] [facility] 2021-06-05 20:54:00 2021-06-06 14:21:00 Outpatient X NAYELI SOLIS [facility] [id number] [facility] 2021-06-05 20:54:00 2021-06-06 14:21:00 Emergency Nayeli Solis [facility] 1.2.840.114 350.1.13.10 4.2.7.2.686 [id number] [facility] 2021-05-22 00:00:00 2021-05-22 00:00:00 Patient Secure Msg Doctor Unassigned, [place] [facility] 1.2.840.114 350.1.13.10 4.2.7.2.686 [id number] 134 [id number] [facility] 2021-05-19 16:00:00 2021-05-19 16:15:00 Engineering Technician Visit 2, Adc Lab Nayeli Solis [facility] 1.2.840.114 350.1.13.10 4.2.7.2.686 [id number] [facility] 2021-05-19 16:00:00 2021-05-19 16:00:00 Outpatient R NAYELI SOLIS [facility] [id number] [facility] 2021-05-19 00:00:00 2021-05-19 00:00:00 Telephone Nayeli Solis [facility] 1.2.840.114 350.1.13.10 4.2.7.2.686 [id number] 134 [id number] [facility] 2021-05-15 00:00:00 2021-05-15 00:00:00 Telephone Nayeli Solis [facility] 1.2.840.114 350.1.13.10 4.2.7.2.686 [id number] 134 [id number] [facility] 2021-05-11 14:30:00 2021-05-11 15:36:41 Outpatient R LU YULIANA [facility] [id number] [facility] 2021-05-11 14:30:00 2021-05-11 15:36:41 Routine Visit Lu Yuliana [facility] 1.2.840.114 350.1.13.10 4.2.7.2.686 [id number] 134 [id number] [facility] 2021-05-08 10:30:00 2021-05-08 10:30:00 Outpatient R YULIANA LEIGH [facility] [id number] [facility] 2021-05-08 10:30:00 2021-05-08 10:30:00 Engineering Technician Visit 2, Adc Lab Yuliana Leigh [facility] 1.2.840.114 350.1.13.10 4.2.7.2.686 [id number] [facility] 2021-05-08 00:00:00 2021-05-08 00:00:00 Orders Only Doctor Unassigned, [place] [facility] 1.2.840.114 350.1.13.10 4.2.7.2.686 [id number] [facility] 2021-05-03 10:15:00 2021-05-03 10:15:00 Outpatient R [facility] [id number] [facility] 2021-05-03 00:00:00 2021-05-03 00:00:00 Telephone Nayeli Solis [facility] 1.2.840.114 350.1.13.10 4.2.7.2.686 [id number] 134 [id number] [facility] 2021-05-01 00:00:00 2021-05-01 00:00:00 Telephone Nayeli Solis [facility] 1.2.840.114 350.1.13.10 4.2.7.2.686 [id number] [facility] 2021-04-28 00:00:00 2021-04-28 00:00:00 Telephone Nayeli Solis [facility] 1.2.840.114 350.1.13.10 4.2.7.2.686 [id number] 134 [id number] [facility] 2021-04-24 11:00:00 2021-04-24 11:15:00 Engineering Technician Visit 2, Adc Lab [facility] 1.2.840.114 350.1.13.10 4.2.7.2.686 [id number] [facility] 2021-04-24 11:00:00 2021-04-24 11:00:00 Outpatient R NAYELI SOLIS [facility] [id number] [facility] 2021-04-13 13:00:00 2021-04-13 14:16:00 Outpatient R NAYELI SOLIS [facility] [id number] [facility] 2021-04-13 13:00:00 2021-04-13 14:16:00 Routine Visit Nayeli Solis [facility] BUILDING 1.284.114 350.1.13.10 4.2.7.2.686 [id number] 134 [id number] [facility] 2021-04-07 09:15:00 2021-04-07 09:20:24 Engineering Technician Visit 2, Adc Lab Nayeli Solis [facility] BUILDING 1.284.114 350.1.13.10 4.2.7.2.686 [id number] [facility] 2021-04-07 09:15:00 2021-04-07 09:15:00 Outpatient R NAYELI SOLIS [facility] [id number] [facility] 2021-04-07 00:00:00 2021-04-07 00:00:00 Case Management Nayeli Solis [facility] 1..114 350.1.13.10 4.2.7.2.686 [id number] 134 [id number] [facility] 2021-03-24 00:00:00 2021-03-24 00:00:00 Orders Only Doctor Unassigned, [place] [facility] 1.2.114 350.1.13.10 4.2.7.2.686 [id number] [facility] 2021-03-21 08:00:00 2021-03-21 08:00:00 Outpatient R [facility] [id number] [facility] 2021-03-20 00:00:00 2021-03-20 00:00:00 Patient Secure Msg Doctor Unassigned, [place] [facility] 1.2840.114 350.1.13.10 4.2.7.2.686 [id number] [facility] 2021-03-16 14:30:00 2021-03-16 15:45:46 Outpatient R NAYELI SOLIS [facility] [id number] [facility] 2021-03-16 14:30:00 2021-03-16 15:45:46 Initial Visit Nayeli Solis [facility] BUILDING 1.2.840.114 350.1.13.10 4.2.7.2.686 [id number] 134 [id number] [facility] 2021-03-16 00:00:00 2021-03-16 00:00:00 Orders Only Doctor Unassigned, [place] [facility] 1.2.840.114 350.1.13.10 4.2.7.2.686 [id number] [facility] 2021-03-16 00:00:00 2021-03-16 00:00:00 Letter (Out) Nayeli Solis [facility]ILD[facility] 1.2.840.114 350.1.13.10 4.2.7.2.686 [id number] 134 [id number] [facility] 2021-01-03 10:45:00 2021-01-03 10:45:00 Outpatient R ONEIDA KURTZ [facility] [id number] [facility] 2020-10-27 08:00:00 2020-10-27 08:00:00 Outpatient ONEIDA URIBE [facility] [id number] [facility] 2020-10-24 13:45:00 2020-10-24 13:45:00 Outpatient ONEIDA URIBE [facility] [id number] [facility] 2020-10-14 00:00:00 2020-10-14 00:00:00 Patient Secure [facility] Doctor Unassigned, [place] [facility] 1.2840.114 350.1.13.10 4.2.7.2.686 [id number] 134 [id number] [facility] 2020-10-14 00:00:00 2020-10-14 00:00:00 Patient Secure Oneida Monique [facility] 1.840.114 350.1.13.10 4.2.7.2.686 [id number] 134 [id number] [facility] 2020-10-03 11:15:00 2020-10-03 11:15:00 Outpatient ONEIDA URIBE [facility] [id number] [facility] 2020-09-28 00:00:00 2020-09-28 00:00:00 Patient Secure Msg Kurtz Oneida [facility] 1.2840.114 350.1.13.10 4.2.7.2.686 [id number] 134 [id number] [facility] 2020-09-19 13:00:00 2020-09-19 13:00:00 Outpatient ONEIDA URIBE [facility] [id number] [facility] 2020-09-15 08:15:00 2020-09-15 08:15:00 Outpatient ONEIDA URIBE [facility] [id number] [facility] 2020-09-12 00:00:00 2020-09-12 00:00:00 Orders Only Doctor Unassigned, [place] [facility] 1.2840.114 350.1.13.10 4.2.7.2.686 [id number] [facility] 2020-08-30 14:30:00 2020-08-30 14:30:00 Outpatient ONEIDA URIBE [facility] [id number] [facility] 2020-08-22 18:31:00 2020-08-25 14:15:00 Hospital Encounter Oneida Kurtz [facility] 1.2.840.114 350.1.13.10 4.2.7.2.686 [id number] [facility] 2020-08-24 20:02:47 2020-08-24 20:02:47 Anesthesia Event Nahnu Moseley [facility] 1.2.840.114 350.1.13.10 4.2.7.2.686 [id number] [facility] 2020-08-23 20:45:00 2020-08-24 13:15:00 Anesthesia Event Conrad Pritchard Stacey [facility] 1.2.840.114 350.1.13.10 4.2.7.2.686 [id number] [facility] 2020-08-22 16:15:00 2020-08-22 16:15:00 Outpatient ONEIDA URIBE [facility] [id number] [facility] 2020-08-15 13:30:00 2020-08-15 13:30:00 Outpatient ONEIDA URIBE [facility] [id number] [facility] 2020-08-15 00:00:00 2020-08-15 00:00:00 Orders Only Doctor Unassigned, [place] [facility] 1.2.840.114 350.1.13.10 4.2.7.2.686 [id number] [facility] 2020-07-28 13:00:00 2020-07-28 13:00:00 Outpatient ONEIDA URIBE [facility] [id number] [facility] 2020-07-20 11:29:12 2020-07-20 11:59:12 Engineering Technician Visit Ultrasound, Paradise Khan [facility] APPLICATION SECURITY CONSULTANT [facility] MATERNAL & CHILD HEALTH [facility] 1.114 350.1.13.10 4.2.7.2.686 [id number] [facility] 2020-07-20 11:30:00 2020-07-20 11:30:00 Outpatient P [facility] [id number] [facility] 2020-07-14 13:30:00 2020-07-14 13:30:00 Outpatient ONEIDA URIBE [facility] [id number] [facility] 2020-06-30 12:32:56 2020-06-30 12:47:56 Engineering Technician Visit Jett Posey Lab Main Oneida Kurtz [facility] 1..114 350.1.13.10 4.2.7.2.686 [id number] [facility] 2020-06-30 11:15:00 2020-06-30 11:15:00 Outpatient ONEIDA URIBE [facility] [id number] [facility] 2020-06-30 00:00:00 2020-06-30 00:00:00 Orders Only Doctor Unassigned, [place] [facility] .114 350.1.13.10 4.2.7.2.686 [id number] [id number] [facility] 2020-06-20 08:33:48 2020-06-20 09:03:48 Engineering Technician Visit Ultrasound, Paradise Khan [facility] APPLICATION SECURITY CONSULTANT [facility] MATERNAL & CHILD [facility] 1.114 350.1.13.10 4.2.7.2.686 [id number] [facility] 2020-06-20 08:45:00 2020-06-20 08:45:00 Outpatient P [facility] [id number] [facility] 2020-06-14 13:45:00 2020-06-14 13:45:00 Outpatient ONEIDA URIBE [facility] [id number] [facility] 2020-05-18 14:39:45 2020-05-18 15:39:45 Engineering Technician Visit Ultrasound, Sadia Ma [facility] APPLICATION SECURITY CONSULTANT [facility] 1..840.114 350.1.13.10 [id number] [id number] [facility] 2020-05-18 13:30:00 2020-05-18 13:30:00 Outpatient P [facility] [id number] [facility] 2020-05-17 15:15:00 2020-05-17 15:15:00 Outpatient ONEIDA URIBE [facility] [id number] [facility] 2020-05-12 00:00:00 2020-05-12 00:00:00 Orders Only Doctor Unassigned, [place] [facility] 1..840.114 350.1.13.10 4.2.7.2.686 [id number] [facility] 2020-05-04 11:00:00 2020-05-04 11:00:00 Outpatient P [facility] [id number] [facility] 2020-05-03 08:00:00 2020-05-03 08:00:00 Outpatient ONEIDA URIBE [facility] [id number] [facility] 2020-04-21 08:00:00 2020-04-21 08:00:00 Outpatient P [facility] [id number] [facility] 2020-04-07 09:56:41 2020-04-07 10:11:41 Engineering Technician Visit Pob, Adc Lab Main [facility] 1.2.840.114 350.1.13.10 [id number] [id number] 2020-04-07 09:56:41 2020-04-07 10:11:41 Engineering Technician Visit Pob, Adc Lab Main [facility] 1.2840.114 350.1.13.10 [id number] [id number] [facility] 2020-04-07 08:30:00 2020-04-07 08:30:00 Outpatient ONEIDA URIBE [facility] [id number] [facility] 2020-03-15 13:44:30 2020-03-15 13:59:30 Engineering Technician Visit Po, [facility] 1.2840.114 350.1.13.10 4.2.7.2.686 [id number] 2020-03-15 13:44:30 2020-03-15 13:59:30 Engineering Technician Visit Po, [facility] Steven Kurtz [facility] 1.2840.114 350.1.13.10 4.2.7.2.686 [id number] [facility] 2020-03-15 12:00:00 2020-03-15 12:00:00 Outpatient R ONEIDA KURTZ [facility] [id number] [facility] 2020-03-15 00:00:00 2020-03-15 00:00:00 Orders Only Doctor Unassigned, [place] [facility] 1.2840.114 350.1.13.10 4.2.7.2.686 [id number] [facility] 2020-03-10 10:00:00 2020-03-10 10:00:00 Outpatient R ONEIDA KURTZ [facility] [id number] [facility] 2020-02-11 14:45:00 2020-02-11 14:45:00 Outpatient ONEIDA URIBE [facility] [id number] [facility] 2020-02-11 08:15:00 2020-02-11 08:15:00 Outpatient ONEIDA URIBE [facility] [id number] [facility] 2020-01-20 00:00:00 2020-01-20 00:00:00 Telephone Oneida Kurtz [facility] 1.2.840.114 350.1.13.10 4.2.7.2.686 [id number] 2020-01-20 00:00:00 2020-01-20 00:00:00 Telephone Oneida Kurtz [facility] 1.2.840.114 350.1.13.10 4.2.7.2.686 [id number] [facility] 2020-01-14 14:45:00 2020-01-14 14:45:00 Outpatient ONEIDA URIBE [facility] [id number] [facility] 2020-01-14 00:00:00 2020-01-14 00:00:00 Orders Only Doctor Unassigned, [place] [facility] 1.2.840.114 350.1.13.10 4.2.7.2.686 [id number] [facility] Results Test Description Test Time Test Comments Results Resul t Comments Source RADIOLOGY DOCUMENTATION 2023-06-27 2 15:00:34 [facility] an unspecified provider[id number] 18:42:33* Test Item Value Reference Range Interpretation Comme nts FREE T4 (test code = 7305065362) 0.90 0.78-2.20 Lab Interpretation (test cod e = 68987-0) [facility] 18:33:51* Test Item Value Reference Range Interpretation Comme nts HGB A1C (test code = 4548-4) 5.7 % 4.0-5.7 JOSH (test code = JOSH) Reference RangesNormal: <5.7%Prediabetes: 5.7 - 6.4%Diabetes: > 6.5% Lab Interpretation (test code = 40775-1) [facility] ([facility]92)(Total Cholesterol, Triglycerides, HDL)2023-07-15 18:27:08* Test Item Value Reference Range Interpretation Comme nts CHOL (test code = 7333777647) 161 mg/dL 120-200 HDL (test code = 2320961548) 51 mg/dL >=50 HDLC RATIO (test code = 0955050145) 3.2 <=4.5 TRIG (test code = 0925684310) 126 mg/dL 30-170 LDL CHOL (test code = 19666-2) 85 mg/dL <=160 VLDL (test code = 8507165926) 25 mg/dL 5-60 Lab Interpretation (test cod e = 61392-5) [facility] (92725)2023-07-15 18:26:47* Test Item Value Reference Range Interpretation Comme nts NA (test code = 1753820878) 135 mmol/L 135-145 K (test code = 5700723435) 4.1 mmol/L 3.5-5.0 CL (test code = 6176769768) 101 mmol/L 98-108 CO2 TOTAL (test code = 4010499803) 27 mmol/L 23-31 AGAP (test code = 0416078761) 7 2-16 BUN (test code = 8502324669) 12 mg/dL 7-23 GLUCOSE (test code = 7090611423) 83 mg/dL 70-110 CREATININE (test code = 2160-0) 0.54 mg/dL 0.50-1.04 TOTAL BILI (test code = 0780951569) 0.5 mg/dL 0.1-1.1 CALCIUM (test code = 1987808070) 8.9 mg/dL 8.6-10.6 T PROTEIN (test code = 1344518386) 7.5 g/dL 6.3-8.2 ALBUMIN (test code = 5324289035) 4.3 g/dL 3.5-5.0 ALK PHOS (test code = 7827088173) 89 U/L 34-122 ALTv (test code = 1742-6) 55 U/L 5-35 H AST(SGOT) (test code = 3079537916) 44 U/L 13-40 H eGFR (test code = 25990-5) 129.6 mL/min/1.73m2 CKD-EPI eGFR (2020). Assuming creatinine has been stable day-to-day for at least three months, the eGFR indicates Category G1 (>= 90 mL/min/1.73 m2) Lab Interpretation (test code = 85549-6) Abnormal [facility] with [id number] 17:53:44* Test Item Value Reference Range Interpretation Comme nts WBC (test code = 6690-2) 5.54 4.30-11.10 RBC (test code = 789-8) 4.57 3.93-5.25 HGB (test code = 718-7) 8.4 g/dL 11.6-15.0 L HCT (test code = 4544-3) 30.4 % 35.7-45.2 L MCV (test code = 787-2) 66.5 fL 80.6-95.5 L MCH (test code = 785-6) 18.4 pg 25.9-32.8 L MCHC (test code = 786-4) 27.6 g/dL 31.6-35.1 L RDW-SD (test code = 93038-1) 41.9 fL 39.0-49.9 RDW-CV (test code = 788-0) 17.5 % 12.0-15.5 H PLT (test code = 777-3) 380 166-358 H MPV (test code = 42187-9) 8.8 fL 9.5-12.9 L NRBC/100 WBC (test code = 9461401497) 0.0 0.0-10.0 NRBC x10^3 (test code = 7852617593) See_Comment [Automated messa ge] The system which generated this result transmitted reference range: 10*3/?L. The reference range was not used to interpret this result as normal/abnormal. GRAN MAT (NEUT) % (test code = 770-8) 56.7 % IMM GRAN % (test code = 2696104900) 0.40 % LYMPH % (test code = 736-9) 31.4 % MONO % (test code = 5905-5) 9.6 % EOS % (test code = 713-8) 1.4 % BASO % (test code = 706-2) 0.5 % GRAN MAT x10^3(ANC) (test code = 5747781146) 3.14 10*3/uL 1.88-7.09 IMM GRAN x10^3 (test code = 5711786208) 0.00-0.06 LYMPH x10^3 (test code = 731-0) 1.74 10*3/uL 1.32-3.29 MONO x10^3 (test code = 742-7) 0.53 10*3/uL 0.33-0.92 EOS x10^3 (test code = 711-2) 0.08 10*3/uL 0.03-0.39 BASO x10^3 (test code = 704-7) 0.03 10*3/uL 0.01-0.07 ELLIPTO/OVAL (test code = 88617-5) 2+ See_Comment A [Automated [employer]] The system which generated this result transmitted reference range: (none). The reference range was not used to interpret this result as normal/abnormal. SPHEROCYTES (test code = 802-9) 1+ A TOXIC CHANGES (test code = 803-7) Present A Lab Interpretation (test code = 43927-4) Abnormal [facility] with [id number] 17:53:44* Test Item Value Reference Range Interpretation Comme nts WBC (test code = 6690-2) 5.54 4.30-11.10 RBC (test code = 789-8) 4.57 3.93-5.25 HGB (test code = 718-7) 8.4 g/dL 11.6-15.0 L HCT (test code = 4544-3) 30.4 % 35.7-45.2 L MCV (test code = 787-2) 66.5 fL 80.6-95.5 L MCH (test code = 785-6) 18.4 pg 25.9-32.8 L MCHC (test code = 786-4) 27.6 g/dL 31.6-35.1 L RDW-SD (test code = 12011-9) 41.9 fL 39.0-49.9 RDW-CV (test code = 788-0) 17.5 % 12.0-15.5 H PLT (test code = 777-3) 380 166-358 H MPV (test code = 50839-8) 8.8 fL 9.5-12.9 L NRBC/100 WBC (test code = 7650416833) 0.0 0.0-10.0 NRBC x10^3 (test code = 0274044468) See_Comment [Automated [employer]] The system which generated this result transmitted reference range: 10*3/?L. The reference range was not used to interpret this result as normal/abnormal. GRAN MAT (NEUT) % (test code = 770-8) 56.7 % IMM GRAN % (test code = 7016422414) 0.40 % LYMPH % (test code = 736-9) 31.4 % MONO % (test code = 5905-5) 9.6 % EOS % (test code = 713-8) 1.4 % BASO % (test code = 706-2) 0.5 % GRAN MAT x10^3(ANC) (test code = 8772857092) 3.14 10*3/uL 1.88-7.09 IMM GRAN x10^3 (test code = 0203552457) 0.00-0.06 LYMPH x10^3 (test code = 731-0) 1.74 10*3/uL 1.32-3.29 MONO x10^3 (test code = 742-7) 0.53 10*3/uL 0.33-0.92 EOS x10^3 (test code = 711-2) 0.08 10*3/uL 0.03-0.39 BASO x10^3 (test code = 704-7) 0.03 10*3/uL 0.01-0.07 ELLIPTO/OVAL (test code = 78202-4) 2+ See_Comment A [Automated messa ge] The system which generated this result transmitted reference range: (none). The reference range was not used to interpret this result as normal/abnormal. SPHEROCYTES (test code = 802-9) 1+ A TOXIC CHANGES (test code = 803-7) Present A Lab Interpretation (test code = 30498-2) Abnormal [facility] with [id number] 17:53:44* Test Item Value Reference Range Interpretation Comme nts WBC (test code = 6690-2) 5.54 4.30-11.10 RBC (test code = 789-8) 4.57 3.93-5.25 HGB (test code = 718-7) 8.4 g/dL 11.6-15.0 L HCT (test code = 4544-3) 30.4 % 35.7-45.2 L MCV (test code = 787-2) 66.5 fL 80.6-95.5 L MCH (test code = 785-6) 18.4 pg 25.9-32.8 L MCHC (test code = 786-4) 27.6 g/dL 31.6-35.1 L RDW-SD (test code = 01238-9) 41.9 fL 39.0-49.9 RDW-CV (test code = 788-0) 17.5 % 12.0-15.5 H PLT (test code = 777-3) 380 166-358 H MPV (test code = 94533-4) 8.8 fL 9.5-12.9 L NRBC/100 WBC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 See_Comment [Automated messa ge] The system which generated this result transmitted reference range: 10*3/?L. The reference range was not used to interpret this result as normal/abnormal. GRAN MAT (NEUT) % (test code = 770-8) 74.5 % IMM GRAN % (test code = 5846207553) 1.30 % LYMPH % (test code = 736-9) 19.0 % MONO % (test code = 5905-5) 4.0 % EOS % (test code = 713-8) 0.8 % BASO % (test code = 706-2) 0.4 % GRAN MAT x10^3(ANC) (test code = 1935063472) 6.88 10*3/uL 1.88-7.09 IMM GRAN x10^3 (test code = 5161978173) 0.12 10*3/uL 0.00-0.06 H LYMPH x10^3 (test code = 731-0) 1.75 10*3/uL 1.32-3.29 MONO x10^3 (test code = 742-7) 0.37 10*3/uL 0.33-0.92 EOS x10^3 (test code = 711-2) 0.07 10*3/uL 0.03-0.39 BASO x10^3 (test code = 704-7) 0.04 10*3/uL 0.01-0.07 Lab Interpretation (test code = 51680-0) Abnormal [facility] URINALYSIS W/O SPECIFIC [id number] 18:37:00* Test Item Value Reference Range Interpretation Comme nts POCT PH U (test code = 3254) n/a 5-8 POCT U LEUK EST (test code = 3263) n/a Negative - Negative POCT U NIT (test code = 3262) n/a Negative - Negati ve POCT U PROT (test code = 3259) negative Negative - Negat chen POCT U GLU (test code = 3256) negative Negative - Negati ve POCT U KETONE (test code = 3258) n/a Negative - Neg ative POCT U BLD (test code = 3257) n/a Negative - Negati ve [facility] BETA HCG [id number] 00:16:21* Test Item Value Reference Range Interpretation Comme nts BETA HCG (test code = 4088597739) 60431.00 See_Comment [Automated [employer]] The system which generated this result transmitted reference range: Non- female and male patients: <5 mIU/mL. The reference range was not used to interpret this result as normal/abnormal. JOSH (test code = JOSH) Gestational Age ?Range (mIU/mL) 1-10 ?Weeks ?15-73982926-55 Weeks ?21123-07957197-91 Weeks ?6173-13261742-55 Weeks ?7189-448825 Biotin has been reported to cause a negative bias, interpret results relative to patient's use of biotin. [facility]. METABOLIC PANEL (32478)2022-05-02 23:32:21* Test Item Value Reference Range Interpretation Comme nts NA (test code = 2379023538) 135 mmol/L 135-145 K (test code = 3540875568) 4.4 mmol/L 3.5-5.0 CL (test code = 5791952137) 104 mmol/L 98-108 CO2 TOTAL (test code = 3198269442) 21 mmol/L 23-31 L AGAP (test code = 3569907272) 10 2-16 BUN (test code = 6941717935) 14 mg/dL 7-23 GLUCOSE (test code = 9975652986) 98 mg/dL 70-110 CREATININE (test code = 0609095796) 0.67 mg/dL 0.50-1.04 TOTAL BILI (test code = 4738431544) 0.5 mg/dL 0.1-1.1 CALCIUM (test code = 1680307003) 9.4 mg/dL 8.6-10.6 T PROTEIN (test code = 1111657866) 7.4 g/dL 6.3-8.2 ALBUMIN (test code = 0190468058) 4.3 g/dL 3.5-5.0 ALK PHOS (test code = 3220602847) 73 U/L 34-122 ALTv (test code = 1742-6) 69 U/L 5-35 H AST(SGOT) (test code = 9399462040) 55 U/L 13-40 H eGFR (test code = 0350083550) 106.4 mL/min/1.73m2 JOSH (test code = JOSH) Association of [...] or abnormalities in imaging tests). Lab Interpretation (test code = 38807-5) [facility]31:[facility]* Test Item Value Reference Range Interpretation Comme nts LIPASE (test code = 9534413808) 71 U/L 0-220 Lab Interpretation (test cod e = 66656-7) Normal [facility] WITH [id number] 23:17:54* Test Item Value Reference Range Interpretation Comme nts WBC (test code = 6690-2) 8.90 See_Comment [Automated [employer] ([employer])] The system which generated this result transmitted reference range: 4.30 - 11.10 10*3/?L. The reference range was not used to interpret this result as normal/abnormal. RBC (test code = 789-8) 4.56 See_Comment [Automated [employer]] The system which generated this result transmitted reference range: 3.93 - 5.25 10*6/?L. The reference range was not used to interpret this result as normal/abnormal. HGB (test code = 718-7) 10.6 g/dL 11.6-15.0 L HCT (test code = 4544-3) 34.1 % 35.7-45.2 L MCV (test code = 787-2) 74.8 fL 80.6-95.5 L MCH (test code = 785-6) 23.2 pg 25.9-32.8 L MCHC (test code = 786-4) 31.1 g/dL 31.6-35.1 L RDW-SD (test code = 17701-0) 45.6 fL 39.0-49.9 RDW-CV (test code = 788-0) 17.0 % 12.0-15.5 H PLT (test code = 777-3) 447 See_Comment H [Automated messa ge] The system which generated this result transmitted reference range: 166 - 358 10*3/?L. The reference range was not used to interpret this result as normal/abnormal. MPV (test code = 55781-2) 9.2 fL 9.5-12.9 L NRBC/100 WBC (test code = 1149277555) 0.0 See_Comment [Automated [employer]] The system which generated this result transmitted reference range: 0.0 - 10.0 /100 WBCs. The reference range was not used to interpret this result as normal/abnormal. NRBC x10^3 (test code = 6107998514) See_Comment [Automated messa ge] The system which generated this result transmitted reference range: 10*3/?L. The reference range was not used to interpret this result as normal/abnormal. GRAN MAT (NEUT) % (test code = 770-8) 65.8 % IMM GRAN % (test code = 9930397086) 0.30 % LYMPH % (test code = 736-9) 25.3 % MONO % (test code = 5905-5) 7.1 % EOS % (test code = 713-8) 0.9 % BASO % (test code = 706-2) 0.6 % GRAN MAT x10^3(ANC) (test code = 1408369436) 5.86 10*3/uL 1.88-7.09 IMM GRAN x10^3 (test code = 6172828932) 0.03 10*3/uL 0.00-0.06 LYMPH x10^3 (test code = 731-0) 2.25 10*3/uL 1.32-3.29 MONO x10^3 (test code = 742-7) 0.63 10*3/uL 0.33-0.92 EOS x10^3 (test code = 711-2) 0.08 10*3/uL 0.03-0.39 BASO x10^3 (test code = 704-7) 0.05 10*3/uL 0.01-0.07 Lab Interpretation (test code = 92903-9) Abnormal [facility] [id number] 22:57:00* Test Item Value Reference Range Interpretation Comme nts POCT PREG (test code = 1605) Postive On board controls acceptable with C Line (test code = 3574) Present POCT PREG LOT # (test code = 3575) [id number] POCT PREG TEST DATE ( test code = 3576) 07-25-2022 Lab Interpretation (test cod e = 02848-0) [facility] [id number] 01:21:00* Test Item Value Reference Range Interpretation Comme nts UA COLOR (test code = COLU) YELLOW YELLOW UA APPEARANCE (test code = APPU) Cloudy CLEAR A IS THE SAMPLE FROM ER OR L&D?Y IF THE ANSWER IS NO,PLEASE DOCUMENT TWO RN SIGNATURES HERE- by AGN 04/02/22 0118 UA GLUCOSE DIPSTICK (test code = DGLUU) NEGATIVE mg/dL NEGATIVE UA BILIRUBIN DIPSTICK (test code = BILU) NEGATIVE mg/dL NEGATIVE UA KETONE DIPSTICK (test code = KETU) NEGATIVE mg/dL NEGATIVE UA SPECIFIC GRAVITY (test code = SGU) 1.034 1.001-1.035 UA BLOOD DIPSTICK (test code = CANDICE) 1.0 mg/dL (3+) mg/dL NEGATIVE A UA PH DIPSTICK (test code = DIEGO) 6.0 5.0-8.0 UA PROTEIN DIPSTICK (test code = PROU) 20 (Trace) mg/dL NEGATIVE A UA UROBILINIOGEN DIPSTICK (test code = URO) Normal mg/dL NEGATIVE UA NITRITE DIPSTICK (test code = CLEMENT) NEGATIVE NEGATIVE UA LEUKOCYTE ESTERASE W REFLEX (test code = LEUUR) 250 Lauryn/uL (2+) Lauryn/uL NEGATIVE A UA WBC (test code = WBCU) 11-20 per HPF 0-5 A UA RBC (test code = RBCU) 11-20 #/HPF 0-5 A UA EPITHELIAL CELLS (test code = EPIU) MANY per HPF FEW UA BACTERIA (test code = BACU) FEW #/HPF NONE A UA MUCUS (test code = MUCU) FEW #/LPF FEW Urine Source? Clean CatchHCG SERUM [id number] 22:58:00* Test Item Value Reference Range Interpretation Comme nts HCG SERUM BETA (test code = HCG) 14154.0 mIU/mL 0-3 H Interfering subs tances present in the serum of somepatients may cause a false-positive result in this assay.Questionable elevations in serum hCG should be confirmedwith a urine hCG. Suspected Trophoblastic Neoplasms shouldnot be diagnosed based on serun hCG/beta hCG alone. Theymust be confirmed by clinical history and tissue diagnosis.INTERPRETATIO N:B-HCG LEVELS <5 SHOULD BE CONSIDERED "NEGATIVE." *WHEN BODERLINE RESULTS ARE ENCOUNTERED,PATIENT SAMPLESSHOULD BE REDRAWN 48 HOURS. 0-1 WEEKS AFTER CONCEPTION 5-50 MIU/ML1-2 WEEKS AFTER CONCEPTION 50-500 MIU/ML2-3 WEEKS AFTER CONCEPTION 100 -5,000 MIU/ML3-4 WEEKS AFTER CONCEPTION 500-10,000 MIU/ML4-5 WEEKS AFTER CONCEPTION 1000 -50,000 MIU/ML5-6 WEEKS AFTER CONCEPTION 10,000-100,000 MIU/ML6-8 WEEKS AFTER CONCEPTION 15,000- 200,000 MIU/ML2-3 MONTHS AFTER CONCEPTION 10,000-100,000 MIU/ML BASIC METABOLIC [id number] 22:58:00* Test Item Value Reference Range Interpretation Comme nts SODIUM (test code = NA) 137 mmol/L 136-145 N POTASSIUM (test code = K) 3.9 mmol/L 3.5-5.1 N CHLORIDE (test code = CL) 104.0 mmol/L 98-107 N CARBON DIOXIDE (test code = CO2) 21.0 mmol/L 21-32 N ANION GAP (test code = GAP) 15.9 10-20 N GLUCOSE (test code = GLU) 102 mg/dL 74-106 N BLOOD UREA NITROGEN (test code = BUN) 10 mg/dL 7-18 N GLOMERULAR FILTRATION RATE (test code = GFR) > 60 mL/min >=60 The Glomerular Filtration Rate is a calculated parameterbased on serum Creatinine, patient age and sex. GFR valuesless than 60 mL/min/1.73 square meters are indicative ofChronic Kidney Disease. Values less than 15 mL/min/1.73square meters indicate Kidney failure. The calculation forGFR is based on the CKD-EPI (2020) calculation. This formulais race indifferent and is the recommended formula for GFRby the National Kidney Foundation for Adults.The GFR will not calculate if the sex is unknown or if thepatient's age is <18 years. CREATININE (test code = CREAT) 0.60 mg/dL 0.55-1.02 N Note change in reference range due to change in reagent. BUN/CREATININE RATIO (test code = BUN/CREA) 16.1 10-20 N CALCIUM (test code = CA) 9.0 mg/dL 8.5-10.1 N HEPATIC FUNCTION [id number] 22:58:00* Test Item Value Reference Range Interpretation Comme nts TOTAL PROTEIN (test code = PROT) 7.1 gram/dL 6.4-8.2 N ALBUMIN (test code = ALB) 3.5 g/dL 3.4-5.0 N GLOBULIN (test code = GLOB) 3.6 gram/dL 2.7-4.2 N ALBUMIN/GLOBULIN RATIO (test code = A/G) 1.0 0.75-1.50 N BILIRUBIN TOTAL (test code = BILT) 0.30 mg/dL 0.0-1.0 N BILIRUBIN DIRECT (test code = BILD) < 0.10 mg/dL 0.0-0.20 N SGOT/AST (test code = AST) 57 IUnit/L 15-37 H SGPT/ALT (test code = ALT) 86 IUnit/L 12-78 H ALKALINE PHOSPHATASE TOTAL (test code = ALKP) 80 IUnit/L 45-117 N Note change in reference range due to change in reagent. - US PREG UT [id number] 22:40:00 [facility])Name: BRIT SINGH : 1995 Sex: F Name: BRIT SINGH [facility] : 1995 Age/S: 26 / F [address] Unit #: [id number] Loc: [place] [address] Phys: Francisco Shepherd MD Acct: [id number] Dis Date: Status: REGER PHONE #: [phone] Exam Date: 04/01/20222215 FAX #: [phone] Reason: PELVIC PAIN EXAMS: CPT CODE: [id number] US PREG UT TRANSVAGINAL 03250 Dictation location: H3 Early first trimester conducted transvaginally and transabdominally and with Doppler color spectral analysis performed in addition to Doppler grayscale arterial wave form analysis. Exam conducted on 04/01/22 CLINICALHISTORY: History twin . Patient presenting with vaginal bleeding and pelvic pain. Comparison exam: None from this Currently, there is only a single viable intrauterine gestation with heart rate measured 165 bpm. The crown-rump length measures 2.84 cm consistent with an age of 9 weeks 4 days and the mean gestational sac diameter is consistent with an age of 9 weeks 5days. The SHAHID derived by crown- rump length [...] Signed Report (CONTINUED) Name: BRIT SINGH [facility] : 1995 Age/S: 26 / F [address] Unit #: [id number] Loc: [place] [address] Phys: Francisco Shepherd MD Acct: [id number] Dis Date: Status: REG ER PHONE #: [phone] Exam Date: 04/01/20222215 FAX #: [phone] Reason: PELVIC PAIN EXAMS: CPT CODE: [id number] US PREG UT TRANSVAGINAL 30243 (Continued) CC: Francisco Shepherd MD Technologist: Christi Edmond MS Trnscb Date/Time: 04/01/2022 (2239) [email or web address] Orig Print D/T: S: 04/01/2022 (2242) Probe: [id number] PAGE 2 Signed Report- DUP AB/PEL/SC [id number] 22:40:00 [facility]Name: BRIT SINGH : 1995 Sex: F Name: BRIT SINGH [facility] : 1995 Age/S: 26 / F [address] Unit #: [id number] Loc: [place] [address] Phys: Francisco Shepherd MD Acct: [id number] Dis Date: Status: REG ER PHONE #: [phone] Exam Date: 04/01/20222215 FAX #: [phone] Reason: PELVIC PAIN EXAMS:CPT CODE: [id number] DUP AB/PEL/SC COMP 43632 Dictation location: H3 Early first trimester pregnancyconducted transvaginally and transabdominally and with Doppler color spectral analysis performed inaddition to Doppler grayscale arterial wave form analysis. Exam conducted on 04/01/22 CLINICAL HISTORY: History twin . Patient presenting with vaginal bleeding and pelvic pain. Comparison exam: None from this Currently, there is only a single viable intrauterine gestation with heart rate measured 165 bpm. The crown-rump length measures 2.84 cm consistent with an ageof 9 weeks 4 days and the mean gestational sac diameter is consistent with an age of 9 weeks 5 days. The SHAHID derived by crown-rump length is 11/01/22. It correlates fairly well the age calculated by d ates of 9 weeks 6 days. Second gestational sac containing mixed components without pole or viable . There appears to be a yolk sac in this collection without crown-rump length. Findings are consistent with demise of a second . Normal amount of amniotic fluid correlateswith the viable fetus. No gross abnormality is [...] Signed Report (CONTINUED) Name: BRIT SINGH [facility] : 1995 Age/S: 26 / F Dora [facility] Unit #: [id number] Loc: [place] [address] Phys: Francisco Shepherd MD Acct: [id number] Dis Date: Status: REG ER PHONE #: [phone] Exam Date: 04/01/20222215 FAX #: [phone] Reason: PELVIC PAIN EXAMS: CPT CODE: [id number] DUP AB/PEL/SC COMP 60399 (Continued) CC: Francisco Shepherd MD Techn ologist: Christi Edmond RDMS Trnscb Date/Time: 04/01/2022 (2239) [email or web address] Orig Print D/T: S: 04/01/2022 (2242) Probe: PAGE 2 Signed Report- US PREG 1ST [id number] 22:40:00 [facility]Name: BRIT SINGH : 1995 Sex: F Name: BRIT SINGH [facility] : 1995 Age/S: 26 / F [address] [facility] Unit #:[id number] Loc: [place] [address] Phys: Francisco Shepherd MD Acct: [id number] Dis Date: Status: REG ER PHONE #: [phone] Exam Date: 04/01/20222215 FAX #: [phone] Reason: VAGINAL BLEEDING/PELVIC PAIN EXAMS: CPT CODE: [id number] US PREG 1ST TRIMTR [id number] Dictation location: H3 Early first trimester conducted transvaginally and transabdominally and with Doppler color spectral analysis performed in addition to Doppler grayscale arterial wave form analysis. Exam conducted on 04/01/22 CLINICAL HISTORY: History twin . Patient presenting with vaginal bleeding and pelvic pa in. Comparison exam: None from this Currently, there is only a single viable intrauterinegestation with heart rate measured 165 bpm. The [...] gross abnormality is seen of subchorionic hematoma Noabnormal adnexal lesions. Normal Doppler flow to the ovaries without ovarian torsion. Normal color spectral flow to the ovaries. No free fluid collections in the cul-de-sac IMPRESSION: Only a solitary viable intrauterine gestation is seen with the crown-rump length consistent with an age of 9 weeks4 days with demise suspected of an abnormal appearing gestational sac containing probable yolk sac and debris in the adjacent gestational sac without pole. at 0 Reported and signed by: Darlene Roman M.D. PAGE 1 Signed Report (CONTINUED) Name: BRIT SINGH [facility] : 1995 Age/S:26 / F [address] [facility] Unit #: [id number] Loc: [place] [address] Phys: Francisco Shepherd MD Acct: [id number] Dis Date: Status: REG ER PHONE #: [phone] Exam Date: 04/01/20222215 FAX #: [phone] Reason: VAGINAL BLEEDING/PELVIC PAIN EXAMS: CPT CODE: [id number] US PREG 1ST TRIMTR [id number] (Cont inued) CC: Francisco Shepherd MD Technologist: Christi Edmond RDMS Trnscb Date/Time: 04/01/2022 (2239) tJOSE [email or web address] Orig Print D/T: S: 04/01/2022 (2242) Probe: PAGE 2 Signed ReportPROTHROMBIN [id number] 22:16:00* Test Item Value Reference Range Interpretation Comme nts PROTHROMBIN TIME PATIENT (test code = PTP) 11.1 seconds 9.0-14.0 N INTERNATIONAL NORMAL RATIO (test code = INR) 1.0 0.8-1.2 N The therapeutic range for oral anticoagulant therapy formost indications is an international normalized ratio (INR)of between 2.0 and 3.0. The recommended therapeutic INRrange for various clinical situations is listed below: Clinical Situation INR range Pulmonary embolism treatment (2.0-3.0)Venous thrombosis treatmentVenous thrombosis prophylaxis (high risk surgery)Prevention of systemic embolism from: Acute myocardial infarction Valvular heart disease Atrial fibrillation Mechanical prosthetic heart valves (2.5-3.5) IS PATIENT ON ANTICOAGULANTS? NTHROMBOPLASTIN TIME [id number] 22:16:00* Test Item Value Reference Range Interpretation Comme nts THROMBOPLASTIN TIME PARTIAL (test code = PTT) 30.7 seconds 23.0-37.0 N IS PATIENT ON ANTICOAGULANTS? NCBC W/O [id number] 22:10:00* Test Item Value Reference Range Interpretation Comme nts WHITE BLOOD CELL (test code = WBC) 8.2 K/mm3 4.5-12.5 N RED BLOOD CELL (test code = RBC) 4.43 mill/mm3 3.7-5.2 N HEMOGLOBIN (test code = HGB) 10.1 gram/dL 11.5-15.5 L HEMATOCRIT (test code = HCT) 33.3 % 36.0-46.0 L MEAN CELL VOLUME (test code = MCV) 75.2 fL 80-98 L MEAN CELL HGB (test code = MCH) 22.8 picogram 27.0-33.0 L MEAN CELL HGB CONCETRATION (test code = MCHC) 30.3 gram/dL 33.0-36.0 L RED CELL DISTRIBUTION WIDTH (test code = RDW) 17.0 % 11.6-16.2 H PLATELET COUNT (test code = PLT) 469 K/mm3 150-450 H MEAN PLATELET VOLUME (test c ode = MPV) 9.2 fL 6.7-11.0 N Type and Screen - ONCE [id number] 23:04:14* Test Item Value Reference Range Interpretation Comme [facility] ABO & RH (test code = 20) O Positive Performed at [facility] Blood [address] [place] [address] Free: [phone] No. [id number] IAT (test code = 1185) Negative Performed at [facility] Blood [address] [place] [id number] Free: [phone] No. [id number] [id number] 22:06:00* Test Item Value Reference Range Interpretation Comme nts POCT PREG (test code = 1605) positive On board controls acceptable with C Line (test code = 3574) present POCT PREG LOT # (test code = 3575) [id number] POCT PREG TEST DATE ( test code = 3576) Lab Interpretation (test cod e = 16866-5) Normal [facility] [id number] 23:10:00* Test Item Value Reference Range Interpretation Comme nts POCT PREG (test code = 1605) NEGATIVE On board controls acceptable with C Line (test code = 3574) PRESENT POCT PREG LOT # (test code = 3575) [id number] POCT PREG TEST DATE ( test code = 3576) 02/24/23 Lab Interpretation (test cod e = 19426-3) Normal [facility] History and Physical Notes Date/Time Note Provider Source 2022-10-08 07:07:07 Formatting of this n ote is different from the original. TRIAGE HISTORY & PHYSICAL IDENTIFYING DATA Brit Singh is 27 year old, /White, 37w0d, female with SHAHID 10/29/2022, by Last Menstrual Period. : 1995 Primary Care Physician: PATIENT DOES NOT HAVE A PCP CHIEF COMPLAINT Elective repeat CD at 37 wks HISTORY OF PRESENT ILLNESS Brit Singh is a 27 year old female @ 37w0d presented for elective repeat CD due to CD x 1 and uncontrolled pregestational DM and non-compliant. +FM. No VB, LOF, or CTX. No pre-eclampsia sx or other complaints. PAST OBSTETRIC HISTORY OB History Para Term AB Living 3 2 [...] JERE Complications: Other (See Comments) PAST MEDICAL HISTORY Problem list: Patient Active Problem List Diagnosis Date [...] N/A 09/26/2021 Surgeon: Nayeli Solis MD; Location: [facility] Past Medical History: Diagnosis Date Anemia of mother in , antepartum 07/17/2020 Chlamydia 2013 Chlamydia trachomatis infection of lower genitourinary sites 05/15/2013 Depression, unspecified depression type 08/17/2020 Gestational hypertension, third trimester 08/25/2020 Gonorrhea 2013 Postcoital bleeding 05/14/2013 Pregestational diabetes mellitus, 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 HOME MEDICATIONS Medications Prior to Admission Medication Sig Dispense Refill [...] morning. 100 tablet 3 Not Taking SOCIAL HISTORY Tobacco History: Social History Tobacco Use Smoking Status Former Types: Cigarettes Quit date: 12/24/2019 Years since quittin.7 Smokeless Tobacco Never Drug History: Social History Substance and Sexual Activity Drug Use Not Currently Types: Marijuana Comment: last smoked 2019 Alcohol History: Social History Substance and Sexual Activity Alcohol Use Yes Alcohol/week: 0.0 standard drinks of alcohol Comment: ocassional FAMILY HISTORY Family History Problem Relation Age of Onset Diabetes Maternal Grandmother Cancer Paternal Grandfather No Significant Medical Problems Mother No Significant Medical Problems Father Arthritis NoFHx Asthma NoFHx Breast Cancer NoFHx Colon Cancer NoFHx Ovarian Cancer NoFHx defects NoFHx Uterine Cancer NoFHx Depression NoFHx Genetic NoFHx High cholesterol NoFHx Heart NoFHx Hypertension NoFHx Mental retardation NoFHx Neurological NoFHx Psychiatry NoFHx Osteoporosis NoFHx REVIEW OF SYSTEMS General: negative Constitutional: negative Eyes: negative ENT/Mouth: negative Cardiovascular: negative Respiratory: negative Gastrointestinal:negative Genitourinary: negative Musculoskeletal: negative Skin/breast: negative Neurological: negative Psychiatric: negative Endocrine: negative Hemat/Lymph: negative Allergic/Immuno:none VITAL SIGNS BP: (114-125)/(49-77) Temp: [36.8 ?C (98.2 ?F)] Temp source: Temporal Artery (10/08 0528) Pulse: [86-88] Resp: [20] SpO2: [99 %-100 %] Height: [162.6 cm (5' 4")] Weight: [124.8 kg (275 lb 3.2 oz)] BMI (calculated): [47.24] PHYSICAL EXAMINATIONS Gen: alert and oriented, well appearing, no distress CV: RRR, normal S1/S2, no m/r/g Resp: normal work of breathing, lungs CTAB Abd: gravid, soft, NTTP Ext: no calf tenderness or edema : Deferred REVIEW OF LABORATORY, PATHOLOGY, AND RADIOLOGY DATA Lab results: Type & Screen HIV Hep B Syphilis Chlamydia [...] GDM, class A2 37 weeks gestation of Placenta Accreta Screening Prior ? : Yes Prior Uterine Surgery?: Yes Placenta low lying/previa in current ? : No Screening outcome: A positive screening outcome indicates a history of prior delivery or prior uterine surgery, AND the presence of either a placenta low lying/previa or ultrasound suspicion of PASD in the current . Negative screening. ASSESSMENT AND PLAN Brit Singh is a 27 year old at 37w0d who presents for a repeat CD. Previous CD x 1 - admit for repeat CD Pregestational DM - FSBG 124 on presentation PVT of Dr. Solis, please see OB Summary for more details Nayeli Solis MD [facility] - Health Progress Notes Date/Time Note Provider Source 2022-09-11 11:15:00 Formatting of this n ote might be different from the original. Age: [age] year old GA: 33w1d Lower abdominal cramping - Cervix visually closed - + vaginal discharge: vag path collected - U dip neg with 2+ leuks and 250 blood. Urine culture sent - Advise maternity belt, rest prn, tylenol prn States that she has not check her glucose nor take Metformin due to a lot going on in her life right now. currently in halfway. She has moved out of her house. She recently was fired from her job. States that she worked for at least 35 hrs and has not received pay yet. Offered managed care nurse referral. Consult managed care nurse placed. Previous CD x 1 - primary LTCD at 34 wks due to non-reassuring heart tones and oligohydramnios with BPP 4/10 on 09/26/21 - Desires repeat CD. delivery x 1 - primary CD at 34 wks due to non-reassuring heart tones and oligohydramnios with BPP 4/10 - serologies neg, Rubella non-immune, VZV non-immune, O+ - anatomy scan done on 07/24/22 without obvious abnormalities. - Appropriate interval growth on 08/22/22 (3 lbs 12 oz) Pregestational versus GDM - 1 hr gtt 224. HbA1C ordered, not completed yet. - not taking Metformin 1000 mg QHS - not checking her glucose - appropriate interval growth on 08/22/22 ultrasound - NST reactive and reassuring - counseled patient strongly about importance of compliance. Risks of uncontrolled diabetes discussed. 28 wk labs and serologies ordered, not completed yet. Advise patient to complete it soon. Follow-up on Sat for NST [facility] Notes Date/Time Note Provider Source 2023-09-20 08:52:32 Pt informed insurance does not cover this medication for pre-diabetes, Reports would like f/u appt to discuss. Appt has been scheduled for 09/25/2023 @ 1400 Alexsandra Contreras V RN [facility] 2023-09-20 08:34:21 Patient seen by Varghese 07/15/2023. Re-routing to correct clinic. Danielle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 Bleeding, Risk of Goal: Absence of impaired coagulation signs and symptoms 10/10/2022 1015 by Stefanie Mandujano RN Outcome: Adequate for discharge 10/10/2022717 by Stefanie Mandujano RN Outcome: Progressing as expected Goal: Absence of active bleeding 10/10/2022 101 by Stefanie Mandujano RN Outcome: Adequate for discharge 10/10/2022717 by Stefanie Mandujano RN Outcome: Progressing as expected Problem: Infection Risk Goal: Absence of infection 10/10/2022 1015 by Stefanie Mandujano RN Outcome: Adequate for discharge 10/10/2022717 by Stefanie Mandujano RN Outcome: Progressing as expected Problem: Coping - Ineffective, Individual Goal: Effective coping 10/10/20221014 by Stefanie Mandujano RN Outcome: Adequate for discharge 10/10/2022717 by Stefanie Mandujano RN Outcome: Progressing as expected Goal: Knowledge of positive coping patterns 10/10/20221014 by Stefanie Mandujano RN Outcome: Adequate for discharge 10/10/2022717 by Stefanie Mandujano RN Outcome: Progressing as expected Problem: Glucose control Goal: Glucose level within specified parameters 10/10/20221014 by Stefanie Mandujano RN Outcome: Adequate for discharge 10/10/2022717 by Stefanie Mandujano RN Outcome: Progressing as expected Stefanie Mandujano RN [facility] 2022-10-10 07:19:11 Formatting of this n ote might be different from the original. Problem: Discharge Planning - Goal: Adequate for discharge Outcome: Progressing as expected Goal: Mood stable Outcome: Progressing as expected Problem: Pain Goal: Control of pain at or below patient's documented comfort goal Outcome: Progressing as expected Goal: Reduction in pain sensation Outcome: Progressing as expected Problem: Falls, Risk of Goal: Absence of falls Outcome: Progressing as expected Problem: Complications of hemorrhage (risk or actual) Goal: Absence of active bleeding Outcome: Progressing as expected Goal: Absence of complications Outcome: Progressing as expected Problem: Bleeding, Risk of Goal: Absence of impaired coagulation signs and symptoms Outcome: Progressing as expected Goal: Absence of active bleeding Outcome: Progressing as expected Problem: Infection Risk Goal: Absence of infection Outcome: Progressing as expected Problem: Coping - Ineffective, Individual Goal: Effective coping Outcome: Progressing as expected Goal: Knowledge of positive coping patterns Outcome: Progressing as expected Problem: Glucose control Goal: Glucose level within specified parameters Outcome: Progressing as expected [facility] 2022-10-10 03:32:55 Formatting of this n ote might be different from the original. Problem: Discharge Planning - Goal: Adequate for discharge 10/10/2022 033 by Mariel Armstrong RN Outcome: Progressing as expected 10/10/2022 033 by Mariel Armstrong RN Outcome: Progressing as expected 10/10/2022 014 by Mariel Armstrong RN Outcome: Progressing as expected Goal: Mood stable 10/10/2022 033 by Mariel Armstrong RN Outcome: Progressing as expected 10/10/2022 033 by Mariel Armstrong RN Outcome: Progressing as expected 10/10/2022 014 by Mariel Armstrong RN Outcome: Progressing as expected Problem: Pain Goal: Control of pain at or below patient's documented comfort goal 10/10/2022331 by Mariel Armstrong RN Outcome: Progressing as expected 10/10/2022 033 by Mariel Armstrong RN Outcome: Progressing as expected 10/10/2022 014 by Mariel Armstrong RN Outcome: Progressing as expected Goal: Reduction in pain sensation 10/10/2022 033 by Mariel Armstrong RN Outcome: Progressing as expected 10/10/2022 033 by Mariel Armstrong RN Outcome: Progressing as expected 10/10/2022 014 by Mariel Armstrong RN Outcome: Progressing as expected Problem: Falls, Risk of Goal: Absence of falls 10/10/2022 033 by Mariel Armstrong RN Outcome: Progressing as expected 10/10/2022 033 by Mariel Armstrong RN Outcome: Progressing as expected 10/10/2022 0140 by Mariel Armstrong RN Outcome: Progressing as expected Problem: Complications of hemorrhage (risk or actual) Goal: Absence of active bleeding 10/10/2022 033 by Mariel Armstrong RN Outcome: Progressing as expected 10/10/2022 033 by Mariel Armstrong RN Outcome: Progressing as expected 10/10/2022 014 by Mariel Armstrong RN Outcome: Progressing as expected Goal: Absence of complications 10/10/2022 033 by Mariel Armstrong RN Outcome: Progressing as expected 10/10/2022 033 by Mariel Armstrong RN Outcome: Progressing as expected 10/10/2022 014 by Mariel Armstrong RN Outcome: Progressing as expected Problem: Bleeding, Risk of Goal: Absence of impaired coagulation signs and symptoms 10/10/2022 033 by Mariel Armstrong RN Outcome: Progressing as expected 10/10/2022 033 by Mariel Armstrong RN Outcome: Progressing as expected 10/10/2022 014 by Mariel Armstrong RN Outcome: Progressing as expected Goal: Absence of active bleeding 10/10/2022 033 by Mariel Armstrong RN Outcome: Progressing as expected 10/10/2022 033 by Mariel Armstrong RN Outcome: Progressing as expected 10/10/2022 014 by Mariel Armstrong RN Outcome: Progressing as expected Problem: Infection Risk Goal: Absence of infection 10/10/2022 033 by Mariel Armstrong RN Outcome: Progressing as expected 10/10/2022 033 by Mariel Armstrong RN Outcome: Progressing as expected 10/10/2022 014 by Mariel Armstrong RN Outcome: Progressing as expected Problem: Coping - Ineffective, Individual Goal: Effective coping 10/10/2022 033 by Mariel Armstrong RN Outcome: Progressing as expected 10/10/2022 033 by Mariel Armstrong RN Outcome: Progressing as expected 10/10/2022 014 by Mariel Armstrong RN Outcome: Progressing as expected Goal: Knowledge of positive coping patterns 10/10/2022331 by Mariel Armstrong RN Outcome: Progressing as expected 10/10/2022330 by Mariel Armstrong RN Outcome: Progressing as expected 10/10/2022139 by Mariel Armstrong RN Outcome: Progressing as expected Problem: Glucose control Goal: Glucose level within specified parameters 10/10/2022331 by Mariel Armstrong RN Outcome: Progressing as expected 10/10/2022330 by Mariel Armstrong RN Outcome: Progressing as expected 10/10/2022139 by Mariel Armstrong RN Outcome: Progressing as expected Armstrong RN [facility] 2022-10-09 07:43:49 Formatting of this n ote might be different from the original. Problem: Discharge Planning - Goal: Adequate for discharge Outcome: Progressing as expected Goal: Mood stable Outcome: Progressing as expected Problem: Pain Goal: Control of pain at or below patient's documented comfort goal Outcome: Progressing as expected Goal: Reduction in pain sensation Outcome: Progressing as expected Problem: Falls, Risk of Goal: Absence of falls Outcome: Progressing as expected Problem: Complications of hemorrhage (risk or actual) Goal: Absence of active bleeding Outcome: Progressing as expected Goal: Absence of complications Outcome: Progressing as expected Problem: Bleeding, Risk of Goal: Absence of impaired coagulation signs and symptoms Outcome: Progressing as expected Goal: Absence of active bleeding Outcome: Progressing as expected Problem: Infection Risk Goal: Absence of infection Outcome: Progressing as expected Problem: Coping - Ineffective, Individual Goal: Effective coping Outcome: Progressing as expected Goal: Knowledge of positive coping patterns Outcome: Progressing as expected Problem: Glucose control Goal: Glucose level within specified parameters Outcome: Progressing as expected Ale Garcia RN [facility] 2022-10-08 12:05:00 Formatting of this n ote is different from the original. Delivery Date: 10/08/2022 Delivery Time: 8:13 AM DELIVERY BY SECTION Date of Service: : 10/08/2022 at 8:13 AM Admitted for: elective repeat CD at 37 wks due to previous CD x 1 and non-compliant with pregestational DM, Repeat Lower uterine transverse section with no extension, no BTL, Pfannenstiel, Closed with suture, QBL 217 cc, No complications, Findings: some adhesions Delivery Summary Sex: female Weight: 3020 g 1 Minute 5 Minute 10 Minute Totals: 8 9 Primary Indication: Brit Singh is a 27 year old female @ 37w0d. Previous CD x 1 and complicated with pregestational DM and non-compliant. Body mass index is 47.24 kg/m?. The patient was taken to the operating room for a repeat section due to: Elective Repeat Section at 37w0d weeks. Procedures: Repeat Lower uterine transverse section with no extension Specimens Removed: Placenta Surgeon: Nayeli Solis MD Report: Prophylactic antibiotic, Ancef was given before patient was taken to OR. After arrival to the operating room patient was placed in the supine position with left lateral tilt after administration of spinal anesthesia. Laparotomy A pfannenstiel incision was made through the anterior abdominal wall with #10 scalpel. The incision was extended sharply with the #10 scalpel through the subcutaneous tissue to the level of fascia. The fascia was entered sharply with a #10 scalpel (Pfannenstiel) in the midline and extended in semi-elliptical fashion with Valderrama scissor. The underlying muscles were dissected off the overlying fascia by grasping the superior aspect of fascia with two arnav clamps and blunt dissection was used along the midline. The fascia was further from rectus muscle with Valderrama scissor and/or cautery. In similar fashion, the lower aspect of fascia was also grsaped with two Arnav clamps and both blunt and sharp dissection was used to separate fascia from rectus muscle. The rectus muscles were in the midline sharply with Valderrama scissor dissection and sharply with scalpel. The peritoneum was then entered sharply by grasping and tenting the peritoneum with two hemostats and enter with Metzenbaum scissor. The peritoneal incision was then extended superiorly and inferiorly under direct visualization with care being taken to avoid bladder and bowel. There were minimal filmy adhesions which were taken down with autery and/or Metzebaum scissor. The peritoneal incision was enlarged bluntly by lateral traction from the surgeon's and registered nurse first assistant's hand. Delivery A bladder flap was developed by grasping with Danish forcep and enter with Metzenbaun scissor. Then sharp and blunt dissection with Metzenbaum scissor and fingers were performed. A low transverse hysterotomy was made then with #10 scalpel and extended laterally and cephalad with fingers in a low transverse fashion with Manu Thornton technique with care being taken to avoid injury to the fetus. The amniotic (membranes) were then entered bluntly with Allis clamp, and the amniotic fluid was noted to be clear . The head was delivered manually without aid of vaginal hand. The head was flexed and delivered through the hysterotomy incision in a non-traumatic fashion with aid of fundal pressure applied by the certified first assistant surgeon . The body was delivered with traction on the head along with fundal pressure. After delivery of body-bulb suction was performed from oropharynx and nostril with removal of clear amniotic fluid. Fetus was delivered in cephalic presentation. With delivery the baby, no extension was noted. Placenta was delivered spontaneously with steady traction on cord and manual separation of placenta from uterine wall. Closure Uterine cavity was cleaned after placental delivery with lap sponge x 2. The hysterotomy was closed in one layer with stitches using 1-0 Monocryl with continuous locking stitches. Hemostasis was achieved as needed with electrocautery. The ovaries/tubes/uterine surface were evaluated. They were found to be normal. Rectus muscle was re-approximated with 2-0 Monocryl. Fascia was closed with running stitches using 0-Biosyn . Hemostasis was checked for and found to be adequate. The subcutaneous tissue was irrigated and hemostasis was achieved where needed with electrocautery. Subcutaneous layer was closed with plain gut. The skin was then closed with subcutaneous stitches using 3-0 Vicryl sutures. The incision was cleaned and covered with a compression bandage and the procedure considered to be complete at this time. Intraoperative Complications: None Uterotonics: 30 units mixed in 500 cc of LR Disposition: The patient tolerated the procedure well. She was recovered in the Labor and Delivery Room with routine care in stable condition, with a contracted uterus and normal transvaginal bleeding. The infant was sent to Transition Nursery. The placenta was not sent to pathology. Nayeli Solis MD 10/08/2022 12:09 PM [facility] 2022-10-08 10:33:00 Summary: Initial Lac tation Consult This note was copied from a baby's chart. Evaluation Situation Initial visit Background Baby Girl is 2 hours old, born weighing 3020g. Gestational Age: 37w0d at INFANT FEEDING STATUS Exclusively MATERNAL STATUS Pumping Hand expressing Assessment, Recommendations, Education Pump Start. Mom has history of uncontrolled diabetes. Infant was first glucose was low. was given 20ml of formula. Mom was issued a double electric and pumping and cleaning instructions. Mom was encouraged to pump every 2-3 hours after infant or if no latch is achieved. Infant is 37 weeks later . Mom was encouraged to follow the triple feeding protocol. Mom should attempt every 3 hours. Mom should pump after or if no latch is achieved to help build and maintain her mils supply. Any milk collected after pump can be fed to infant after. Mom pump and collected 9mls to be fed to infant at the next feeding. Mom instructed on how to contact [employer] for assistance with feedings or to answer questions while in the hospital. Mom verbalized understanding. Assessment (most recent) Assessment - 10/08/22 1030 General Information Visit Initial Mom's age (years) 27 years Gestational age 37 weeks 3 Parity 3 Living Children 3 Feeding plan Breast and Formula Breast Pump Needs Delivery method Reason for repeat Infant Oral Assessment Oral assessment New assessment Date of 10/08/22 Time of 0813 location Mother Baby Unit Chin Normal Palate assessment Normal Tongue assessment Normal Restricted tongue motion observed None Breast Assessment Breast Assessment Initial Symmetry Symmetrical Size XL (F+) Shape Globular;Pendulous Nipple & Areola Assessment Left Areola Pliable Right Areola Pliable Left Nipple Everts w/stimulation;Colostrum visible Right Nipple Everts w/stimulation;Colostrum visible Literature Resources Resources guide Education 6 months exclusive , up to and beyond 1 year with complimentary foods; hunger cues;On-demand feeds at least 8 or more over 24 hours;Diaper counts/color;Benefits of breastmilk;Hand expression;Benefits of skin to skin contact;Waking techniques;Signs of an effective latch;Infant stomach size;Calming techniques;2nd day/growth spurt cluster feeds;Position changes;Syringe feeding;Use/settings of pump;Pump frequency;Storage of expressed breastmilk;Cleaning of pump parts;Burping Handouts given [place] [employer] Observation Pumping Yes Mother demonstrated teach back of Proper use of breast pump equipment;Breast massage and hand expression Follow up Follow up in hospital;Mom will call staff Recommended Feeding Plan Recommended feeding plan Breastfeed with hunger cues not to exceed 3 hours in between, pump after latching and feed expressed breastmilk, if no latch or expressed breastmilk by 3 hours then feed formula;Frequent cghq-yj-[id number] time with parents;Pump/hand express minimum 8 times in 24 hours including nights. Pump for 15-25 min. TERRI Pulido, RN, IBCLC Zeyad Herron RN [facility] 2022-10-08 09:23:57 Formatting of this n ote might be different from the original. Problem: Discharge Planning - Goal: Adequate for discharge Outcome: Progressing as expected Goal: Mood stable Outcome: Progressing as expected Problem: Pain Goal: Control of pain at or below patient's documented comfort goal Outcome: Progressing as expected Goal: Reduction in pain sensation Outcome: Progressing as expected Problem: Falls, Risk of Goal: Absence of falls Outcome: Progressing as expected Problem: Complications of hemorrhage (risk or actual) Goal: Absence of active bleeding Outcome: Progressing as expected Goal: Absence of complications Outcome: Progressing as expected Lawanda Orellana RN [facility] 2022-10-08 05:31:06 Formatting of this n ote might be different from the original. Problem: Pain Goal: Control of pain at or below patient's documented comfort goal Outcome: Progressing as expected Goal: Reduction in pain sensation Outcome: Progressing as expected Problem: Falls, Risk of Goal: Absence of falls Outcome: Progressing as expected Vianney Aguilar RN [facility] 2022-10-06 13:07:00 Formatting of this n ote might be different from the original. Regarding: Questions ----- Message from Marry Werner sent at 10/06/2022 12:51 PM CDT ----- Brit Singh is a 27 year old female Pt is scheduled for a csection saturday. She is nervous about the procedure and has questions about how the process will go. [phone] (home) Cherri Li RN [facility] 2022-10-06 13:07:00 Formatting of this n ote is different from the original. Brit Singh is a 27 year old female, who is calling today with general questions about having a schedule . "What happens and what should I expect". RN answered questions and patient voices understanding denying further needs or concerns at this time. Reason for Disposition Question about upcoming scheduled test, no triage required and triager able to answer question Protocols used: Information Only Call - No [id number] [facility] 2022-10-05 18:44:06 Formatting of this n ote is different from the original. Arrived on [facility] L&D unit: Arrived to [facility] Date & Time: 10/05/2022 2:48 PM Oncall Physician: Dr.Carpio John Primary Physician: CHIEF COMPLAINT: Dizziness, abd pain, pressure, nausea HISTORY OF PRESENT ILLNESS Brit Singh is a 27 year old female transported via EMS pt was at a preschool pt began feeling dizzy, nausea, pressure, abd pain EMS administered phenergan and fluids. Pt states she has not been taking her metformin because it makes her feel sick. Urine dip is shows positive ketones+1, leuk +1,blood 250. Pts BG per EMS is 90. SVE is closed/thick/high. Report given to Dr Samara John assessed pt, wants to continue to monitor with fluids running. 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 SURGICAL HISTORY Past Surgical History: Procedure Laterality Date SECTION N/A 09/26/2021 Surgeon: Nayeli Solis MD; Location: [facility] OR LOCATION FAMILY HISTORY Family History Problem Relation Age of Onset Diabetes Maternal Grandmother Cancer Paternal Grandfather No Significant Medical Problems Mother No Significant Medical Problems Father Arthritis NoFHx Asthma NoFHx Breast Cancer NoFHx Colon Cancer NoFHx Ovarian Cancer NoFHx defects NoFHx Uterine Cancer NoFHx Depression NoFHx Genetic NoFHx High cholesterol NoFHx Heart NoFHx Hypertension NoFHx Mental retardation NoFHx Neurological NoFHx Psychiatry NoFHx Osteoporosis NoFHx ALLERGIES: Patient has no known allergies. MEDICATIONS Home Medications: Medications Prior to Admission Medication Sig Dispense Refill [...] the morning. 100 tablet 3 Not Taking Last taken: Metformin was last taken a month ago HOSPITAL MEDICATIONS Current Facility-Administered Medications Medication Dose Route Frequency Last Rate Last Admin NaCl 0.9% (NS) IV infusion 1,000 mL 1,000 mL IV Infusion CONTINUOUS Social History Tobacco Use Smoking Status Former Types: Cigarettes Quit date: 12/24/2019 Years since quittin.7 Smokeless Tobacco Never Social History Substance and Sexual Activity Alcohol Use Yes Alcohol/week: 0.0 standard drinks of alcohol Comment: ocassional Social History Substance and Sexual Activity Drug Use Not Currently Types: Marijuana Comment: last smoked 2019 REVIEW OF SYSTEMS: See Nurses Flowsheets Specimens Obtained: SVE: Closed/0 Strip: Cat I BP 115/60 | Pulse 89 | Temp 36.7 ?C (98.1 ?F) (Temporal Artery) | Wt 124.7 kg (275 lb) | LMP 01/22/2022 | SpO2 98% | BMI 47.20 kg/m? REVIEW OF LABORATORY, PATHOLOGY, AND RADIOLOGY DATA Lab results: CBC BMP PT/INR WBC x10^3 (/uL) Date Value 08/27/2011 8.6 WBC (10*3/?L) Date Value 09/11/2022 7.99 NA (mmol/L) Date Value 07/17/2022 135 No results found for: "PT" RBC x10^6 (/uL) Date Value 08/27/2011 4.75 RBC (10*6/?L) Date Value 09/11/2022 3.98 K (mmol/L) Date Value 07/17/2022 4.2 No results found for: "PTINR" PLT x10^3 (/uL) Date Value 08/27/2011 394 (H) PLT (10*3/?L) Date Value 09/11/2022 330 CALCIUM (mg/dL) Date Value 07/17/2022 8.7 HGB Date Value 09/11/2022 10.9 g/dL (L) 08/27/2011 13.6 G/DL CL (mmol/L) Date Value 07/17/2022 107 aPTT HCT (%) Date Value 09/11/2022 33.7 (L) 08/27/2011 41.3 BUN (mg/dL) Date Value 07/17/2022 7 No results found for: "APTTPAT" CREATININE (mg/dL) Date Value 07/17/2022 0.38 (L) GLUCOSE (mg/dL) Date Value 07/17/2022 133 (H) CO2 TOTAL (mmol/L) Date Value 07/17/2022 19 (L) PLAN: 1. NS 1L 2. Continue to monitor strip and contractions Franny Kc RN [facility] 2022-09-26 15:22:25 Formatting of this n ote might be different from the original. Name and verified. Pt advised of CD on 10/08/22. Verbalized understanding. MARY ALICE RUSSO RN 09/26/2022 3:23 PM Mary Alice Russo RN [facility] 2022-09-26 15:07:11 Formatting of this n ote might be different from the original. Pt is wanting to confirm c section for 10/06/22 and would like to know what time frame. Pt states she needs to inform her family due 2 other children needing care. Kelly Mosley [facility] 2022-09-25 10:15:00 Formatting of this n ote might be different from the original. Reviewed and noted growth ultrasound results. Cephalic presentation. Fundal placenta without previa. Amniotic fluid within normal limits. Estimated weight at 2598 grams (5# 12 oz). Growth normal per results. Royal Atkinson NP 09/26/2022 9:25 AM [facility] 2022-09-24 14:00:00 Formatting of this n ote might be different from the original. Age: [age] year old GA: 35w0d Here for NST only Lower abdominal cramping -Patient was seen on labor and delivery on 09/22/2022 and was noted to be fingertip/thick/high with a few irregular contractions. -No contractions on toco today - Advise maternity belt, rest prn, tylenol prn States that she has not check her glucose nor take Metformin due to a lot going on in her life right now. currently in halfway. She has moved out of her house. She recently was fired from her job. States that she is currently not stable. Does not have food insecurity at this time. Previous CD x 1 - primary LTCD at 34 wks due to non-reassuring heart tones and oligohydramnios with BPP 4/10 on 09/26/21 - Desires repeat CD. Given noncompliance with diabetes treatment, will proceed with delivery at 37 weeks unless clinically indicated otherwise. Plan for repeat on 10/08/2022. Pregestational versus GDM - 1 hr gtt 224. HbA1C stable, 6 on 09/11/22 - not taking Metformin 1000 mg QHS - not checking her glucose - appropriate interval growth on 08/22/22 ultrasound - NST reactive and reassuring - Daily kick counts and bleeding precautions reviewed Follow-up on for NST/ [facility] 2022-09-24 14:00:00 Addended by: ERIN FLORES on: 09/24/2022 01:53 PM Modules accepted: Orders Erin Olivas MA [facility] 2022-09-22 22:57:40 Formatting of this n ote might be different from the original. Pt arrived ambulatory reporting contractions since last night 09/21 Pt is pt of Dr. Solis, due 10/29. Denies leaking of fluids, does report lightening crotch. Report to SANKET Cano Pt transported to L&D via ED RN in Liset Saldana RN [facility] 2022-09-12 08:58:10 Formatting of this n ote might be different from the original. See results note. MARY ALICE RUSSO RN 09/12/2022 8:58 AM Mary Alice Russo RN [facility] 2022-09-12 08:21:32 Formatting of this n ote might be different from the original. Pt is wanting to speak to nurse regarding results. Please advise. Yenny Babcock [facility] 2022-09-11 12:45:00 Formatting of this n ote is different from the original. Images from the original note were not included. Venipuncture collection performed by clean technique on the right anticubitus. Total of 1 attempts were made. Slight pressure and a bandage/dressing were applied to the site(s). The patient experienced no complications. The following specimens were processed according to instructions and sent to [facility] laboratories per lab order on 09/11/2022 Pt has requested blood work today for dr solis only, will return at a later date for other blood work: LT BLUE SST 1 RED 1 LAV 1 PPT DK GREEN (LiHep) DK GREEN (SodH) LOPEZ DK BLUE (K2) DK BLUE (S) ACD Blood Culture NIPT/NTD [facility] 2022-04-03 00:25:00 [facility] ([facility]) EMERGENCY PROVIDER REPORT REPORT#:[id number] REPORT STATUS: Signed DATE:04/03/22 TIME: 5 PATIENT: BRIT SINGH UNIT #: [id number] ROOM/BED: AGE: 26 SEX: F PCP PHYS: No Primary or Family Physician SERVICE AUTHOR: Francisco Shepherd MD * ALL edits or amendments must be made on the electronic/computer document * HPI- Female General Initial Greet Date/Time 04/01/222129 Presentation Chief Complaint Vaginal bleeding )( Sudden in Onset? No Free Text HPI Notes Free Text HPI Notes Patient is a G3, P2 26-year-old female currently with dual gestation with suspected demise of 1 on previous ultrasound about a month ago presenting to the emergency department for vaginal bleeding. Is reported to be approximately 10 weeks . Has had continued vaginal bleeding for some time now. No clots. No significant change. Simply concerned because she continues to have significant bleeding. Otherwise has history of 1 and 1 spontaneous vaginal delivery with 2 kids at home. Otherwise denies any associated fevers, chills, lightheadedness, dizziness, weakness, numbness, chest pain, shortness of breath, abdominal pain, nausea, vomiting, diarrhea, dysuria, hematuria, or frequency, vaginal discharge. Using 3 diapers daily for vaginal bleeding. Risk- Female Risk Stratification Ectopic Risk factors reviewed Review of Systems ROS Statements All systems rev neg except as marked. (and as per hpi) Past Medical History - Adult Stated Complaint ABDOMINAL BECL-QDSV-ASTRL-UNEXPLAIN Allergies Coded Allergies: No Known Allergies (04/01/22) Calculated Suicide Risk (nurs) No risk Pt reports no significant: Past medical history Past Surgical History: Reports: . Smoking status for patients 13 years old or older: Unknown,if ever smoked Physical Exam Vital Signs Vital Signs First Documented: Result Date Time Pulse Ox 96 04/01 2119 B/P 108/04/01 B/P Mean 80 04/01 2119 O2 Delivery Room air 04/01 2119 Temp 36.8 04/01 2119 Pulse 97 04/01 2119 Resp 04/01 Last Documented: Result Date Time Pulse Ox 96 04/01 2119 B/P 108/66 04/01 2119 B/P Mean 80 04/01 2119 O2 Delivery Room air 04/01 2119 Temp 36.8 04/01 2119 Pulse 97 04/01 2119 Resp 16 04/01 2119 Review of Vital Signs Reviewed Focused PE General/Const General/Const Awake, Alert, Well appearing Resp/Chest Respiratory/Chest Breath sounds NL, Breath sounds = bilat, No respiratory distress, No rales, No rhonchi, No wheezing Cardiovascular Cardiovascular Heart rate NL, Regular rhythm, Heart sounds NL, Peripheral circulation NL Abdomen/GI Abdomen/GI Soft, Non-tender, No guarding, No rebound MS Back Back Inspection NL, Non-tender, No CVA tenderness Skin Skin Color NL, No rash, Warm, Dry, Turgor NL Genitourinary General Exam deferred Interpretation Diagnostics Lab Results Interpretation Results Laboratory Tests 04/01/222145: [Embedded Image Not Available] Laboratory Tests: 04/01 Chemistry Sodium (136 - 145 mmol/L) 137 Potassium (3.5 - 5.1 mmol/L) 3.9 Chloride (98 - 107 mmol/L) 104.0 Carbon Dioxide (21 - 32 mmol/L) 21.0 Anion Gap (10 - 20) 15.9 BUN (7 - 18 mg/dL) 10 Creatinine (0.55 - 1.02 mg/dL) 0.60 Glomerular Filtr Rate (>=60 mL/min) > 60 BUN/Creatinine Ratio (10 - 20) 16.1 Glucose (74 - 106 mg/dL) 102 Calcium (8.5 - 10.1 mg/dL) 9.0 Total Bilirubin (0.0 - 1.0 mg/dL) 0.30 Direct Bilirubin (0.0 - 0.20 mg/dL) < 0.10 AST (15 - 37 IUnit/L) 57 H ALT (12 - 78 IUnit/L) 86 H Total Alk Phosphatase (45 - 117 IUnit/L) 80 Total Protein (6.4 - 8.2 gram/dL) 7.1 Albumin (3.4 - 5.0 g/dL) 3.5 Globulin (2.7 - 4.2 gram/dL) 3.6 Albumin/Globulin Ratio (0.75 - 1.50) 1.0 Coagulation INR (0.8 - 1.2) 1.0 PTT (Dee) (23.0 - 37.0 seconds) 30.7 PT Patient/Control Mix (9.0 - 14.0 seconds) 11.1 Hematology WBC (4.5 - 12.5 K/mm3) 8.2 RBC (3.7 - 5.2 mill/mm3) 4.43 Hgb (11.5 - 15.5 gram/dL) 10.1 L Hct (36.0 - 46.0 %) 33.3 L MCV (80 - 98 fL) 75.2 L MCH (27.0 - 33.0 picogram) 22.8 L MCHC (33.0 - 36.0 gram/dL) 30.3 L RDW (11.6 - 16.2 %) 17.0 H Plt Count (150 - 450 K/mm3) 469 H MPV (6.7 - 11.0 fL) 9.2 Miscellaneous Matrnl HCG Beta Subunit (0 - 3 mIU/mL) 68073.0 H Urines Urine Color (YELLOW) YELLOW Urine Appearance (CLEAR) Cloudy H Urine pH (5.0 - 8.0) 6.0 Ur Specific Scott (1.001 - 1.035) 1.034 Urine Protein (NEGATIVE mg/dL) 20 (Trace) H Urine Glucose (UA) (NEGATIVE mg/dL) NEGATIVE Urine Ketones (NEGATIVE mg/dL) NEGATIVE Urine Blood (NEGATIVE mg/dL) 1.0 mg/dL (3+) H Urine Nitrite (NEGATIVE) NEGATIVE Urine Bilirubin (NEGATIVE mg/dL) NEGATIVE Urine Urobilinogen (NEGATIVE mg/dL) Normal Ur Leukocyte Esterase (NEGATIVE Lauryn/uL) 250 Lauryn/uL (2+) H Urine RBC (0 - 5 #/HPF) 11-20 H Urine WBC (0 - 5 per HPF) 11-20 H Ur Epithelial Cells (FEW per HPF) MANY Urine Bacteria (NONE #/HPF) FEW H Urine Mucus (FEW #/LPF) FEW Microbiology: Date/Time Procedure - Status Source Growth 04/01 2220 Urine Culture - COMP URINE Recent Impressions: ULTRASOUND - US PREG UT TRANSVAGINAL 04/01 2152 Report Impression - Status: SIGNED Entered: 04/01/20222242 IMPRESSION: Only a solitary viable intrauterine gestation is seen with the crown-rump length consistent with an age of 9 weeks 4 days with demise suspected of an abnormal appearing gestational sac containing probable yolk sac and debris in the adjacent gestational sac without pole. Impression By: Barry - Darlene Roman M.D. ULTRASOUND - US PREG 1ST TRIMTR 04/01 2152 Report Impression - Status: SIGNED Entered: 04/01/20222242 IMPRESSION: Only a solitary viable intrauterine gestation is seen with the crown-rump length consistent with an age of 9 weeks 4 days with demise suspected of an abnormal appearing gestational sac containing probable yolk sac and debris in the adjacent gestational sac without pole. Impression By: Barry Roman M.D. ULTRASOUND - DUP AB/PEL/SC COMP 04/01 2152 Report Impression - Status: SIGNED Entered: 04/01/20222242 IMPRESSION: Only a solitary viable intrauterine gestation is seen with the crown-rump length consistent with an age of 9 weeks 4 days with demise suspected of an abnormal appearing gestational sac containing probable yolk sac and debris in the adjacent gestational sac without pole. Impression By: Barry Roman M.D. Re-Evaluation MDM Free Text MDM Notes Free Text MDM Notes Differential includes but is not limited to ectopic , subchorionic hemorrhage, miscarriage, threatened , incomplete , septic , dysfunctional uterine bleeding, endometrial cancer, cervical cancer, vaginal cancer. Will obtain quantitative hCG, pelvic ultrasonography, and serum abdominal studies with urinalysis. We will give a liter IV fluids. Patient otherwise hemodynamic stable and afebrile without any apparent distress. Re-Evaluation/Progress Re-Evaluation/Progress Text/Dict Note Laboratory studies remarkable hemoglobin 10.1, quantitative hCG 98,453, mild LFT elevation in ALT and AST, otherwise grossly unremarkable. Pelvic ultrasonography otherwise reveals solitary viable intrauterine gestation approximately 9 weeks and 4 days with suspected demise of abnormal. Gestational sac adjacent to viable . Discussed with APPLICATION SECURITY CONSULTANT who stated no acute intervention otherwise required at this time. Advised to follow-up with outpatient APPLICATION SECURITY CONSULTANT. Urinalysis otherwise not resulted at this time and patient leaving AGAINST MEDICAL ADVICE prior to resulting. Seem somewhat concerning for infection but ultimately culture at this time seems to have only grown normal [place]. Patient Discharge Departure Vital Signs/Condition Vital Signs First Documented: Result Date Time Pulse Ox 96 04/01 2119 B/P 108/66 04/01 2119 B/P Mean 80 04/01 2119 O2 Delivery Room air 04/01 2119 Temp 36.8 04/01 2119 Pulse 97 04/01 2119 Resp 16 04/01 2119 Last Documented: Result Date Time Pulse Ox 96 04/01 2119 B/P 108/66 04/01 2119 B/P Mean 80 04/01 2119 O2 Delivery Room air 04/01 2119 Temp 36.8 04/01 2119 Pulse 97 04/01 2119 Resp 16 04/01 2119 All vital signs available at the time of this entry have been reviewed. Clinical Impression Clinical Impression Primary Impression: Multiple with one loss Disposition Decision Other )( Time 0048 )( Date 04/02/22 Against Medical Advice Yes at 1728 RPT #:[id number] END OF REPORT [facility]
--- NOTE | 2024-04-21 22:40 | ER ---
Nurse's Notes [facility] Name: Brit Singh Age: 29 yrs Sex: Female : 1995 Arrival Date: 04/21/2024 Time: 19:13 Bed IW9 Private MD: Diagnosis: Abdominal pain, Generalized Presentation: 04/21 20:01 Chief complaint: Patient states: abd pain for a couple days , feels like pressure, + iw nausea no vomiting or diarrhea , also having hemorrhoid pain. Coronavirus screen: At this time, the client does not indicate any symptoms associated with coronavirus-19. Ebola Screen: No symptoms or risks identified at this time. Initial Sepsis Screen: Does the patient meet any 2 criteria? No. Patient's initial sepsis screen is negative. Does the patient have a suspected source of infection? No. Patient's initial sepsis screen is negative. Risk Assessment: Do you want to hurt yourself or someone else? Patient reports no desire to harm self or others. Onset of symptoms was April 19, 2024. 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 - Infectious Disease History:: Denies. - Social history:: Smoking status: Reported history of juuling and/or vaping. Screenin:00 [facility] ED Fall Risk Assessment (Adult) History of falling in the last 3 months, vc1 including since admission. Abuse screen: Denies threats or abuse. Nutritional screening: No deficits noted. Tuberculosis screening: No symptoms or risk factors identified. Assessment: 22:29 General: Called in lobby x3 with no answer. Found urine specimen near some empty chairs me1 with patient's label on it. Informed NILES Robledo that patient appears to have eloped. . Vital Signs: 20:01 BP 136 / 63; Pulse 92; Resp 18; Temp 98.2(O); Pulse Ox 98% on R/A; Weight 90.72 kg; iw Height 5 ft. 5 in. ; Pain 8/10; 20:01 Body Mass Index 33.28 (90.72 kg, 165.1 cm) iw 20:01 Pain Scale: Adult ED Course: 19:16 Patient arrived in ED. gm2 19:39 aJna Medina FNP-C is [facility]. kb 19:39 Alexander Joe MD is Attending Physician. kb 20:03 Triage completed. iw 20:04 Arm band placed on. iw 20:12 Radiology exam delayed due to lab results not completed at this time. test jc4 not completed at this time. IV insertion attempt and/or patient not having appropriate IV at this time. 22:07 Mary Kay Lau, RN is Primary Nurse. me1 22:39 Radiology exam delayed due to test not completed at this time. nj Administered Medications: 22:33 Not Given (Patient Eloped): [id number] mg IVP once; dilute with 10 mL 0.9% NaCl; give vc1 over 2 minutes 22:33 Not Given (Patient Eloped): ondansetron 4 mg IVP once; over 2 minutes vc1 22:33 Not Given (Patient Eloped): ns 0.9% 1000 ml IV at 1 bolus Per protocol; to be given as vc1 a bolus over 60 minutes Outcome: 23:36 Eloped from waiting room, Time discovered patient gone: April 21, 2024 at 21:55 vc1 23:36 Condition: stable 23:37 Patient left the ED. vc1 Signatures: Jana Medina FNP-C FNP-Miriam Quezada, RN SANKET Javid Avina Vanessa, RN RN vc1 Mary Kay Lau, RN RN ok1 Ondina Malik gm2 Bigg Brito jc4
--- NOTE | 2024-04-21 22:40 | EDPHYS ---
Physician Documentation [facility] Name: Brit Singh Age: 29 yrs Sex: Female : 1995 Arrival Date: 04/21/2024 Time: 19:13 Bed IW9 Private MD: ED Physician Alexander Joe HPI: 04/21 20:02 This 29 yrs old Female presents to ER via Unassigned with complaints of kb Abdominal Pain, Hemorrhoids. 20:02 Pt is a 29 year old female who presents for midline abd pain that started 3 days ago. kb Reports nausea. Denies vomiting, diarrhea, fever. Reports hemorrhoid that is swollen so she is having pain when she uses the restroom. States her upper abd feels like it gets hard, then the feeling goes away after she burps, but builds back up. . 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 - Infectious Disease History:: Denies. - Social history:: Smoking status: Reported history of juuling and/or vaping. ROS: 20:02 Constitutional: As per HPI kb Exam: 20:02 Constitutional: This is a well developed, well nourished patient who is awake, alert, kb and in no acute distress. Head/Face: Normocephalic, atraumatic. ENT: Moist Mucous membranes Cardiovascular: Regular rate Respiratory: Respirations even and unlabored. No increased work of breathing. Talking in full sentences Skin: Warm, dry with normal turgor. Normal color. MS/ Extremity: Pulses equal, no cyanosis. Neurovascular intact. Full, normal range of motion. Neuro: Awake and alert, GCS 15, oriented to person, place, time, and situation. 20:02 Abdomen/GI: Inspection: abdomen appears normal, Bowel sounds: normal, Palpation: soft, in all quadrants, mild abdominal tenderness, in all quadrants, Vital Signs: 20:01 BP 136 / 63; Pulse 92; Resp 18; Temp 98.2(O); Pulse Ox 98% on R/A; Weight 90.72 kg; iw Height 5 ft. 5 in. ; Pain 8/10; 20:01 Body Mass Index 33.28 (90.72 kg, 165.1 cm) iw 20:01 Pain Scale: Adult iw MDM: 19:39 Medical Screening Exam initiated kb 22:38 Differential diagnosis: non-specific abd pain, gastroenteritis, hemorrhoids. Data kb reviewed: vital signs, nurses notes. ED course: Pt elected to leave from lobby prior to diagnostic testing and completion of MSE. Initial assessment completed by me in triage, plan discussed at that time and pt was in agreement. . Administered Medications: 22:33 Not Given (Patient Eloped): [id number] mg IVP once; dilute with 10 mL 0.9% NaCl; give vc1 over 2 minutes 22:33 Not Given (Patient Eloped): ondansetron 4 mg IVP once; over 2 minutes vc1 22:33 Not Given (Patient Eloped): ns 0.9% 1000 ml IV at 1 bolus Per protocol; to be given as vc1 a bolus over 60 minutes Disposition: 04/22 12:11 Co-signature as Attending Physician, Alexander Joe MD I reviewed the patient's care rt provided by the Advanced Practice Provider and agree with the diagnosis and treatment plan. Disposition Summary: 04/21/24 22:39 Eloped Notes: Disposition: after being seen by provider kb Reason: (see nurse's notes) kb Diagnosis - Abdominal pain, Generalized kb Followup: kb - With: Emergency Department - When: As needed - Reason: Worsening of condition Followup: kb - With: Private Physician - When: 2 - 3 days - Reason: Recheck today's complaints, Continuance of care, Re-evaluation by your physician Signatures: Dispatcher [employer] EDIA Jana Medina, PERFECT BINDER OPERATOR-C PERFECT BINDER OPERATOR-Miriam Quezada, RN RN Alexander Phillips MD MD rt Yenny Olivo RN vc1 Corrections: (The following items were deleted from the chart) 04/21 20:05 20:05 Abdomen Pelvis W Con+CT.RAD.BRZ ordered. EDIA EDMS 22:33 20:04 IV Saline Lock ordered. kb vc1 22:33 20:04 Labs collected and sent ordered. kb vc1
[2024-04-22 00:24] VITALS: BP 136/63; TEMP 98.2; O2SAT 98
== END 2024-04-21 23:37 | disposition left against medical advice (07) ==
LOC: ER 19:13
DX: R10.84 Generalized abdominal pain (principal)
CPT/HCPCS: 99281